=== PATIENT | male | born 1990 | race Caucasian/White ===

== ENCOUNTER 2018-05-11 21:47 | Emergency (ER) | payer OTHER, SELFPAY ==
[2018-05-11] MEDS ORDERED: ONDANSETRON 4 MG/2 ML VIAL ONE (22:18)
[2018-05-11] MEDS ORDERED: MORPHINE 4 MG/ML SYR ONE (22:18)
[2018-05-11 22:23] LABS: Absolute Lymphocytes (CBC) 1.9 K/uL (0.7-4.9); Absolute Monocytes 0.5 K/uL (0.1-1.3); Absolute Neutrophil 4.7 K/uL (1.8-8.0); Basophils % 0.4 % (0-1.3); Eosinophils % 1.6 % (0-4.4); Lymphocytes % 25.8 % (15.3-44.8); MCH 34.9 pg (27.0-35.0); MPV 7.9 fL (7.6-11.3); Monocytes % 6.9 % (3.3-12.3); RBC Red Blood Cell Count 4.37 M/uL (4.33-5.43)
[2018-05-11 22:48] LABS: Albumin 6.1 g/dL (3.4-5.0); Bilirubin Direct 0.1 mg/dL (0-0.2); Bilirubin Total 0.5 mg/dL (0.2-1.0); Magnesium 2.4 mg/dL (1.8-2.4); Potassium 3.4 mmol/L (3.5-5.1); Protein, Total 10.1 g/dL (6.4-8.2)
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
[2018-05-11] MEDS ORDERED: HYDROCODONE/APAP 10/325 TAB ONE (23:47)
--- NOTE | 2018-05-12 06:42 | EKG ---
Test Date: 2018-05-11 Test Time: 21:56:08 Plush Finisher: SUKUMAR MEASUREMENT RESULTS: Intervals: Rate: 98 TX: 104 QRSD: 78 QT: 344 QTc: 439 Vidalia: P: 70 TX: 104 QRS: 74 T: 25 INTERPRETIVE STATEMENTS: Sinus rhythm with sinus arrhythmia with short TX Otherwise normal ECG Compared to ECG 06/03/2016 04:54:27 Short TX interval now present Sinus bradycardia no longer present Electronically Signed On 05-12-18 06:41:43 CDT by William Boone
--- NOTE | 2018-05-12 09:29 | RAD REPORT ---
EXAM DESCRIPTION: RAD - Chest Single View - 05/11/2018 10:35 pm CLINICAL HISTORY: Chest pain, shortness of breath COMPARISON: None. TECHNIQUE: AP portable chest image was obtained . FINDINGS: No focal infiltrate or mass. Heart size and vasculature within normal limits. No acute crystal g parenchymal process or change to the parenchyma since 2016. Small right pleural effusion is present . No left pleural effusions seen. No gross bony abnormality seen. No acute aortic findings suspected. IMPRESSION: Small right pleural effusion. No other acute finding seen.
== END 2018-05-11 23:56 | disposition home or self-care (01) ==
LOC: ER 21:47
DX: R07.9 Chest pain, unspecified (principal); F32.9 Major depressive disorder, single episode, unspecified; F41.9 Anxiety disorder, unspecified; F17.210 Nicotine dependence, cigarettes, uncomplicated
CPT/HCPCS: 36415; 71045; 80048; 80076; 83735; 84484; 85025; 85379; 85610; 85730; 93005; 96374; 96375; 99285; J2405

== ENCOUNTER 2018-10-15 21:44 | Emergency (ER) | payer SELFPAY ==
--- OUTSIDE RECORDS SUMMARY | 2018-10-15 21:47 | XMS REPORT ---
:1990 [facility] [address] [place] [address] Dr. Hackett [address] [place] [id number] Care Team Providers Name Role Phone Unavailable Unavailable Unavailable Problems This patient has no known problems. Allergies, Adverse Reactions, Alerts This patient has no known allergies or adverse reactions. Medications This patient has no known medications.
[2018-10-15 23:59] LABS: Absolute Lymphocytes (CBC) 1.7 K/uL (0.7-4.9); Absolute Monocytes 0.4 K/uL (0.1-1.3); Absolute Neutrophil 4.6 K/uL (1.8-8.0); Basophils % 0.6 % (0-1.3); Eosinophils % 1.9 % (0-4.4); Hematocrit 40.5 % (39.6-49.0); Lymphocytes % 24.9 % (15.3-44.8); MPV 8.9 fL (7.6-11.3); Monocytes % 6.2 % (3.3-12.3); RBC Red Blood Cell Count 4.09 M/uL (4.33-5.43)
[2018-10-16 00:10] LABS: ALT/SGPT 39 U/L (12-78); AST/SGOT 14 U/L (15-37); Albumin 4.1 g/dL (3.4-5.0); Alkaline Phosphatase 74 U/L (45-117); BUN Blood Urea Nitrogen 10 mg/dL (7-18); Bicarbonate 26 mmol/L (21-32); Bilirubin Direct < 0.1 mg/dL (0-0.2); Bilirubin Total 0.3 mg/dL (0.2-1.0); Glucose Level 101 mg/dL (74-106); Lipase 75 U/L (73-393); Potassium 3.5 mmol/L (3.5-5.1); Protein, Total 7.4 g/dL (6.4-8.2); Sodium Level 141 mmol/L (136-145)
[2018-10-16] MEDS ORDERED: MORPHINE 4 MG/ML SYR ONE (00:11)
[2018-10-16] MEDS ORDERED: ONDANSETRON 4 MG/2 ML VIAL ONE (00:11)
[2018-10-16] MEDS ORDERED: KETOROLAC 30 MG/ML INJ ONE (03:32)
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
--- NOTE | 2018-10-16 09:19 | RAD REPORT ---
EXAM DESCRIPTION: CT - Abdomen Pelvis W Contrast - 10/16/2018 6:03 am CLINICAL HISTORY: Abdominal pain, palpable mass near a surgical site A preliminary report was provided at the time of the study and reviewed prior to final report. COMPARISON: CT study January 2014, CT imaging June 2016 TECHNIQUE: Biphasic, helical CT imaging of the abdomen and pelvis was performed following 100 ml non -ionic IV contrast. Oral contrast was given. All CT scans are performed using dose optimization technique as appropriate and may include automated exposure control or mA/KV adjustment according to patient size. FINDINGS: No suspicious findings in the lung bases. No pericardial thickening or effusion. Posterior aspect of the right liver lobe has been resected matching prior imaging. Numerous surgical clips are present in this region. Adjacent parenchyma is heterogeneous but stable. Right kidney has b een resected. No suspicious mass or abnormal fluid collection near the resection site. Spleen and escalante creas show no suspicious findings. Gallbladder is absent. Mild dilatation of the biliary tree is not outside of normal range. Normal function from the left kidney. No pyelonephritis or acute parenchymal process. No bladder abno rmalities. No adrenal abnormalities. No dilated bowel loops or bowel wall thickening. No free air, free fluid or inflammatory stranding. No hernia, mass or bulky lymphadenopathy. No abdominal wall defect or suspicious finding in the subc utaneous fatty tissues. There are numerous areas of scarring along the anterior abdominal wall from m ultiple prior surgeries. No suspicious bony findings. IMPRESSION: Contrast enhanced CT abdomen and pelvis showing no acute finding. No abdominal wall defect or significant finding in the subcutaneous tissues. Exam is not substantiall y different from 2016.
== END 2018-10-16 04:13 | disposition home or self-care (01) ==
LOC: ER 21:44
DX: K43.9 Ventral hernia without obstruction or gangrene (principal); F41.9 Anxiety disorder, unspecified; F32.9 Major depressive disorder, single episode, unspecified; F17.210 Nicotine dependence, cigarettes, uncomplicated
CPT/HCPCS: 36415; 74177; 80048; 80076; 83690; 85025; 96374; 96375; 99284; J2405; Q9967

== ENCOUNTER 2019-03-21 01:30 | Emergency (ER) | payer SELFPAY ==
--- OUTSIDE RECORDS SUMMARY | 2019-03-21 01:33 | XMS REPORT ---
:1990 [facility] [address] [place] [address] Dr. Hackett [address] [place] [id number] Care Team Providers Name Role Phone Unavailable Unavailable Unavailable Problems This patient has no known problems. Allergies, Adverse Reactions, Alerts This patient has no known allergies or adverse reactions. Medications This patient has no known medications.
[2019-03-21] MEDS ORDERED: NA CHLORIDE 0.9% 1,000 ML ONE (02:29)
[2019-03-21] MEDS ORDERED: ONDANSETRON 4 MG/2 ML VIAL ONE (02:29)
[2019-03-21] MEDS ORDERED: ACETAMINOPHEN 325 MG TABLET ONE (03:05)
[2019-03-21] MEDS ORDERED: KETOROLAC 30 MG/ML INJ ONE (03:10)
[2019-03-21 03:38] LABS: Absolute Lymphocytes (CBC) 1.9 K/uL (0.7-4.9); Absolute Neutrophil 7.4 K/uL (1.8-8.0); Basophils % 0.4 % (0-1.3); Eosinophils % 0.3 % (0-4.4); Hematocrit 43.6 % (39.6-49.0); MPV 8.6 fL (7.6-11.3); Monocytes % 9.9 % (3.3-12.3); RBC Red Blood Cell Count 4.56 M/uL (4.33-5.43)
[2019-03-21 04:11] LABS: Albumin 4.5 g/dL (3.4-5.0); Bilirubin Total 0.3 mg/dL (0.2-1.0); Potassium 3.4 mmol/L (3.5-5.1); Protein, Total 8.8 g/dL (6.4-8.2)
[2019-03-21 04:16] LABS: Blood Morphology Comment NOT SEEN (NOT SEEN); Platelet Estimate ADEQ; Urine White Blood Cell Casts OK
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
[2019-03-21] MEDS ORDERED: ACETAMIN/CAFFEINE/BUTALB TAB PO ONE (04:49)
[2019-03-21] MEDS ORDERED: MORPHINE 4 MG/ML SYR ONE (14:03)
--- NOTE | 2019-03-23 12:08 | RAD REPORT ---
EXAM DESCRIPTION: CT - Head Brain Wo Cont - 03/21/2019 4:30 am CLINICAL HISTORY: The patient is 28 years old and is Male; headache, fever TECHNIQUE: Axial computed tomography images of the head/brain without intravenous contrast. Sagitt al and coronal reformatted images were created and reviewed. This CT exam was performed using one o r more of the following dose reduction techniques: automated exposure control, adjustment of the mA and/or kV according to patient size, and/or use of iterative reconstruction technique. COMPARISON: CT of the head October 30, 2017. FINDINGS: BRAIN: Unremarkable. The mcallister-white matter differentiation is preserved . No hemorrhag e. No significant white matter disease. No edema. No extra-axial fluid collections. VENTRICLES: Unremarkable. No ventriculomegaly. BONES/JOINTS: No acute fracture. SOFT TISSUES: Unremarkable. SINUSES: Unremarkable as visualized. No acute sinusitis. MASTOID AIR CELLS: Unremarkable as visualized. No mastoid effusion. IMPRESSION: No acute intracranial findings. Electronically signed by: Angella Garza MD 03/21/2019 2:54 AM CDT Due to temporary technical issues with the PACS/Fluency reporting system, reports are being signed by the in house radiologist as a courtesy to ensure prompt reporting. The interpreting radiologist is f ully responsible for the content of the report.
== END 2019-03-21 04:45 | disposition home or self-care (01) ==
LOC: ER 01:30
DX: R51 Headache (principal); F41.8 Other specified anxiety disorders
CPT/HCPCS: 36415; 70450; 80053; 84145; 85025; 86308; 87040; 87804; 96361; 96374; 96375; 99284; J2405; J7030

== ENCOUNTER 2019-03-21 09:28 | Emergency (ER) | payer SELFPAY ==
--- OUTSIDE RECORDS SUMMARY | 2019-03-21 09:31 | XMS REPORT ---
:1990 [facility] [address] [place] [address] Dr. Hackett [address] [place] [id number] Care Team Providers Name Role Phone Unavailable Unavailable Unavailable Problems This patient has no known problems. Allergies, Adverse Reactions, Alerts This patient has no known allergies or adverse reactions. Medications This patient has no known medications.
[2019-03-21] MEDS ORDERED: MEPERIDINE HCL 50 MG/ML AMP ONE (10:11)
[2019-03-21] MEDS ORDERED: NA CHLORIDE 0.9% 1,000 ML ONE (10:12)
[2019-03-21] MEDS ORDERED: METOCLOPRAMIDE 10 MG/2mL INJ ONE (11:16)
[2019-03-21] MEDS ORDERED: DEXAMETHASONE 10 MG/ML VIAL ONE (11:16)
[2019-03-21] MEDS ORDERED: MORPHINE 4 MG/ML SYR ONE (11:16)
[2019-03-21 11:28] LABS: CSF Glucose 54 mg/dL (40-70)
[2019-03-21 11:54] LABS: Body Fluid Source CSF
[2019-03-21 11:55] LABS: Appearance CLEAR (CLEAR); Color of fluid Colorless (COLORLESS)
[2019-03-21 11:56] LABS: Body Fluid WBC 28 /mm^3
[2019-03-21 11:57] LABS: Appearance CLEAR (CLEAR); Body Fluid Source CSF; Color of fluid Colorless (COLORLESS); Fluid Total Volume 6.5 ml
[2019-03-21 11:58] LABS: Body Fluid WBC 41 /mm^3
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
[2019-03-21] MEDS ORDERED: ACYCLOVIR INJ 800 MG in NA CHLORIDE 0.9% 100 ML IVPB SCH (13:00)
[2019-03-21] MEDS ORDERED: VANCOMYCIN 2 GM in NA CHLORIDE 0.9% 500 ML IVPB SCH (13:00)
[2019-03-21] MEDS ORDERED: CEFTRIAXONE/SWI 2gm 2 GM/20 ML SYR IV SCH (13:00)
== END 2019-03-21 14:27 | disposition short-term general hospital (02) ==
LOC: ER 09:28
PROC: 009U3ZX Drainage of Spinal Canal, Percutaneous Approach, Diagnostic (ICD-10-PCS; principal; 2019-03-21)
DX: G03.9 Meningitis, unspecified (principal); F41.8 Other specified anxiety disorders; G43.909 Migraine, unspecified, not intractable, without status migrainosus
CPT/HCPCS: 36415; 62270; 82945; 84157; 86403; 87070; 89050; 96361; 96365; 96367; 96375; 99285; J0133; J0696; J1100; J2175; J2765; J7030

== ENCOUNTER 2019-07-12 23:43 | Emergency (ER) | payer SELFPAY ==
[2019-07-13] MEDS ORDERED: MORPHINE 4 MG/ML SYR ONE (00:36)
[2019-07-13 00:46] LABS: Absolute Lymphocytes (CBC) 2.6 K/uL (0.7-4.9); Hematocrit 37.1 % (39.6-49.0); Lymphocytes % 40.2 % (15.3-44.8); MPV 8.1 fL (7.6-11.3); RBC Red Blood Cell Count 3.88 M/uL (4.33-5.43)
[2019-07-13 00:59] LABS: ALT/SGPT 85 U/L (12-78); AST/SGOT 44 U/L (15-37); Albumin 4.1 g/dL (3.4-5.0); Alkaline Phosphatase 112 U/L (45-117); BUN Blood Urea Nitrogen 28 mg/dL (7-18); Bicarbonate 24 mmol/L (21-32); Bilirubin Direct < 0.1 mg/dL (0-0.2); Bilirubin Total 0.2 mg/dL (0.2-1.0); Glucose Level 99 mg/dL (74-106); Lipase 97 U/L (73-393); Potassium 4.1 mmol/L (3.5-5.1); Protein, Total 7.4 g/dL (6.4-8.2); Sodium Level 138 mmol/L (136-145)
[2019-07-13] MEDS ORDERED: FENTANYL CITR 100 MCG/2 ML ONE (02:37)
[2019-07-13 02:39] LABS: Urine Blood NEGATIVE (NEG); Urine Glucose NEGATIVE (NEG); Urine Protein NEGATIVE (NEG); Urine Specific Gravity >1.030 (1.005-1.030)
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
[2019-07-13 05:18] VITALS: TEMP 98.1
[2019-07-13 05:19] VITALS: BP 113/71; O2SAT 97
--- NOTE | 2019-07-14 17:24 | RAD REPORT ---
EXAM DESCRIPTION: Abdomen Pelvis W Contrast CLINICAL HISTORY: Abdominal pain COMPARISON: None. TECHNIQUE: CT ABDOMEN PELVIS WITH IV CONTRAST on 07/13/2019 12:29 AM CDT This exam was performed according to our departmental dose-optimization program, which includes autom ated exposure control, adjustment of the mA and/or kV according to patient size and/or use of iterati ve reconstruction technique. FINDINGS: Lower lungs are clear. Abdomen: Liver is mildly enlarged. There are postoperative changes of the right lobe of the liver. Th ere is no biliary dilatation. Gallbladder is absent. The pancreas and spleen are normal in appearance . Adrenal glands and left kidney are normal. Right kidney is absent. Abdominal aorta is normal in course and caliber without aneurysm. There is no free air. There is no r etroperitoneal adenopathy. Pelvis: There is no bowel obstruction. Urinary bladder is unremarkable. There is no free fluid. Appen lopez is normal. Skeleton: There are no acute osseous findings. No suspicious bony lesions. IMPRESSION: Postoperative changes of the right hepatic lobe and right kidney. No definite acute proc ess. Electronically signed by: Nikita Michel MD 07/13/2019 2:04 AM CDT Due to temporary technical issues with the PACS/Fluency reporting system, reports are being signed by the in house radiologist as a courtesy to ensure prompt reporting. The interpreting radiologist is f beckyly responsible for the content of the report.
== END 2019-07-13 04:58 | disposition home or self-care (01) ==
LOC: ER 23:43
DX: R10.2 Pelvic and perineal pain (principal); F41.9 Anxiety disorder, unspecified; F32.9 Major depressive disorder, single episode, unspecified; Z72.0 Tobacco use
CPT/HCPCS: 36415; 74177; 80048; 80076; 81003; 83690; 85025; 96374; 96375; 99284; J3010; Q9967

== ENCOUNTER 2019-08-02 06:10 | Emergency (ER) | payer SELFPAY ==
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
--- NOTE | 2019-08-02 07:23 | RAD REPORT ---
EXAM DESCRIPTION: RAD - Forearm Right - 08/02/2019 7:09 am CLINICAL HISTORY: Right arm pain FINDINGS: No fracture is seen.
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
--- NOTE | 2019-08-02 07:26 | RAD REPORT ---
EXAM DESCRIPTION: Pardeep Single View08/02/2019 7:09 am CLINICAL HISTORY: Chest pain COMPARISON: 2018 FINDINGS: The lungs appear clear of acute infiltrate. The heart is normal size IMPRESSION: No acute abnormalities displayed
[2019-08-02] MEDS ORDERED: LIDOCAINE 1% W/EPI 1:100,000 MDV 20 ML VIAL ONE (07:31)
[2019-08-02] MEDS ORDERED: HYDROCODONE/APAP 5/325 MG TAB ONE (07:32)
[2019-08-02] MEDS ORDERED: IBUPROFEN 400 MG TAB ONE (07:33)
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
[2019-08-02 08:40] VITALS: TEMP 97.9
[2019-08-02 08:42] VITALS: BP 122/75; O2SAT 96
== END 2019-08-02 08:28 | disposition home or self-care (01) ==
LOC: ER 06:10
PROC: 0JQ00ZZ Repair Scalp Subcutaneous Tissue and Fascia, Open Approach (ICD-10-PCS; principal; 2019-08-02)
DX: S01.01XA Laceration without foreign body of scalp, initial encounter (principal); Y04.2XXA Assault by strike against or bumped into by another person, initial encounter; Y93.9 Activity, unspecified; Y92.89 Other specified places as the place of occurrence of the external cause; F17.210 Nicotine dependence, cigarettes, uncomplicated; F41.9 Anxiety disorder, unspecified; F32.9 Major depressive disorder, single episode, unspecified
CPT/HCPCS: 70450; 70486; 71045; 72125; 76377; 99284

== ENCOUNTER 2019-08-09 07:39 | Emergency (ER) | payer SELFPAY ==
[2019-08-09] MEDS ORDERED: NA CHLORIDE 0.9% 1,000 ML ONE (07:56)
[2019-08-09 08:12] LABS: Absolute Lymphocytes (CBC) 2.4 K/uL (0.7-4.9); Lymphocytes % 25.7 % (15.3-44.8); MPV 8.1 fL (7.6-11.3); RBC Red Blood Cell Count 4.01 M/uL (4.33-5.43)
[2019-08-09 08:15] LABS: Protime INR 1.03
[2019-08-09 08:22] LABS: Potassium 3.7 mmol/L (3.5-5.1)
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
[2019-08-09] MEDS ORDERED: HYDROCODONE/APAP 10/325 TAB ONE (08:43)
[2019-08-09] MEDS ORDERED: MORPHINE 2 MG/ML SYR ONE (09:12)
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
[2019-08-09 09:41] VITALS: TEMP 98.8
[2019-08-09 09:43] VITALS: BP 123/80; O2SAT 96
--- NOTE | 2019-08-10 07:53 | EKG ---
Test Date: 2019-08-09 Test Time: 07:52:19 Magnetic Observer: TANA MEASUREMENT RESULTS: Intervals: Rate: 81 NE: 110 QRSD: 86 QT: 364 QTc: 422 [place]: P: 10 NE: 110 QRS: 19 T: 15 INTERPRETIVE STATEMENTS: Sinus rhythm with short NE Otherwise normal ECG Compared to ECG 05/11/2018 21:56:08 Sinus arrhythmia no longer present Electronically Signed On 08-10-19 07:51:56 CDT by William Boone
== END 2019-08-09 09:28 | disposition home or self-care (01) ==
LOC: ER 07:39
DX: S00.03XA Contusion of scalp, initial encounter (principal); W22.8XXA Striking against or struck by other objects, initial encounter; Y93.89 Activity, other specified; Y92.89 Other specified places as the place of occurrence of the external cause
CPT/HCPCS: 36415; 70450; 72125; 80048; 80320; 85025; 85610; 85730; 93005; 96360; 99285; J2270; J7030

== ENCOUNTER 2019-10-24 11:26 | Emergency (ER) | payer SELFPAY ==
--- OUTSIDE RECORDS SUMMARY | 2019-10-24 11:29 | XMS REPORT ---
:1990 [facility] [address] [place] [address] Care Team Providers Name Role Phone NAHOMY CAMP Unavailable Unavailable Problems This patient has no known problems. Allergies, Adverse Reactions, Alerts This patient has no known allergies or adverse reactions. Medications This patient has no known medications. Encounters Start End Encounter Admission Attending Care Care Encounter Date/Time Date/Time Type Type Clinicians Facility Department ID 2019-08-04 2019-08-04 Emergency E [facility] [id number] 18:18:00 18:18:00 2019-03-16 2019-03-16 Emergency E [facility] [id number] 20:20:00 20:20:00 Results Test Description Test Time Test Comments Text Results Atomic Results Result Comments BASIC METABOLIC PANEL 2019-03-26 07:05:00 Test Item Value Reference Range Comments SODIUM (BEAKER) (test 138 meq/L 136-145 quwh=312) POTASSIUM (BEAKER) (test 3.7 meq/L 3.5-5.1 aooc=546) CHLORIDE (BEAKER) (test 106 meq/L 98-107 fljb=431) CO2 (BEAKER) (test 25 meq/L 22-29 odvn=102) BLOOD UREA NITROGEN 10 mg/dL 7-21 (BEAKER) (test awya=347) CREATININE (BEAKER) (test 0.83 mg/dL 0.57-1.25 suhw=103) GLUCOSE RANDOM (BEAKER) 88 mg/dL 70-105 (test aarz=058) CALCIUM (BEAKER) (test 9.1 mg/dL 8.4-10.2 blcs=417) EGFR (BEAKER) (test 112 mL/min/1.73 sq m ESTIMATED GFR IS NOT ancd=1071) ACCURATE CREATININE CLEARANCE IN PREDICTING GLOMERULAR FILTRATION RATE. ESTIMATED GFR IS NOT APPLICABLE FOR DIALYSIS PATIENTS. BASIC METABOLIC [id number] 06:45:00 Test Item Value Reference Range Comments SODIUM (BEAKER) (test 139 meq/L 136-145 psub=313) POTASSIUM (BEAKER) (test 3.7 meq/L 3.5-5.1 estg=911) CHLORIDE (BEAKER) (test 108 meq/L 98-107 hdlp=792) CO2 (BEAKER) (test 23 meq/L 22-29 cvoa=838) BLOOD UREA NITROGEN 10 mg/dL 7-21 (BEAKER) (test fuzl=337) CREATININE (BEAKER) (test 0.78 mg/dL 0.57-1.25 leiw=993) GLUCOSE RANDOM (BEAKER) 81 mg/dL 70-105 (test lptc=973) CALCIUM (BEAKER) (test 9.1 mg/dL 8.4-10.2 styq=541) EGFR (BEAKER) (test 120 mL/min/1.73 sq m ESTIMATED GFR IS NOT ctwg=8978) ACCURATE CREATININE CLEARANCE IN PREDICTING GLOMERULAR FILTRATION RATE. ESTIMATED GFR IS NOT APPLICABLE FOR DIALYSIS PATIENTS. VANCOMYCIN LEVEL, [id number] 21:11:00 Test Item Value Reference Range Comments VANCOMYCIN TROUGH (BEAKER) (test obpr=370) 8.3 ug/mL 10.0-20.0 CBC W/PLT COUNT & AUTO [id number] 08:25:00 Test Item Value Reference Range Comments WHITE BLOOD CELL COUNT (BEAKER) (test prxw=730) 7.5 K/ L 3.5-10.5 RED BLOOD CELL COUNT (BEAKER) (test wcxh=965) 3.86 M/ L 4.63-6.08 HEMOGLOBIN (BEAKER) (test yayv=053) 12.4 GM/DL 13.7-17.5 HEMATOCRIT (BEAKER) (test fduw=923) 36.2 % 40.1-51.0 MEAN CORPUSCULAR VOLUME (BEAKER) (test brbq=452) 93.8 fL 79.0-92.2 MEAN CORPUSCULAR HEMOGLOBIN (BEAKER) (test 32.1 pg 25.7-32.2 exrp=205) MEAN CORPUSCULAR HEMOGLOBIN CONC (BEAKER) (test 34.3 GM/DL 32.3-36.5 soof=365) RED CELL DISTRIBUTION WIDTH (BEAKER) (test 11.5 % 11.6-14.4 unll=069) PLATELET COUNT (BEAKER) (test wurb=527) 299 K/CU MM 150-450 MEAN PLATELET VOLUME (BEAKER) (test whjy=949) 9.5 fL 9.4-12.4 NUCLEATED RED BLOOD CELLS (BEAKER) (test 0 /100 WBC 0-0 znxz=852) (CELLAVISION MANUAL DIFF)2019-03-24 08:25:00 Test Item Value Reference Range Comments NEUTROPHILS - REL (CELLAVISION)(BEAKER) (test 61 % oblb=9639) LYMPHOCYTES - REL (CELLAVISION)(BEAKER) (test 30 % zozu=8360) MONOCYTES - REL (CELLAVISION)(BEAKER) (test 5 % irdx=3367) EOSINOPHILS - REL (CELLAVISION)(BEAKER) (test 1 % xybn=2971) BASOPHILS - REL (CELLAVISION)(BEAKER) (test 1 % hfsr=9400) ATYPICAL LYMPHOCYTES - REL (CELLAVISION)(BEAKER) 2 % 0-0 (test sqbe=0340) NEUTROPHILS - ABS (CELLAVISION)(BEAKER) (test 4.58 K/ul 1.78-5.38 lcwy=5399) LYMPHOCYTES - ABS (CELLAVISION)(BEAKER) (test 2.25 K/ul 1.32-3.57 xqww=9838) MONOCYTES - ABS (CELLAVISION)(BEAKER) (test 0.38 K/uL 0.30-0.82 ybva=5754) EOSINOPHILS - ABS (CELLAVISION)(BEAKER) (test 0.08 K/uL 0.04-0.54 ujzm=0971) BASOPHILS - ABS (CELLAVISION)(BEAKER) (test 0.08 K/uL 0.01-0.08 ktcq=3695) ATYPICAL LYMPHOCYTES - ABS (CELLAVISION)(BEAKER) 0.15 K/uL 0.00-0.00 (test juhc=8996) TOTAL COUNTED (BEAKER) (test evop=6122) 100 WBC MORPHOLOGY (BEAKER) (test fggh=654) Normal PLT MORPHOLOGY (BEAKER) (test gjkk=345) Normal ANISOCYTOSIS (BEAKER) (test ltfd=438) 1+ few MICROCYTES (BEAKER) (test esya=193) 1+ few ARTIFACT (CELLAVISION)(BEAKER) (test qtak=8511) Present PLATELET CONCENTRATION (CELLAVISION)(BEAKER) (test Adequate uqjx=1458) Received comment: User comments: Slide comments:BASIC METABOLIC [id number] 06:26:00 Test Item Value Reference Range Comments SODIUM (BEAKER) (test 137 meq/L 136-145 uvnk=588) POTASSIUM (BEAKER) (test 3.3 meq/L 3.5-5.1 ijdc=721) CHLORIDE (BEAKER) (test 104 meq/L 98-107 fnie=032) CO2 (BEAKER) (test 25 meq/L 22-29 vvbr=868) BLOOD UREA NITROGEN 11 mg/dL 7-21 (BEAKER) (test ozog=911) CREATININE (BEAKER) (test 0.85 mg/dL 0.57-1.25 lwmf=164) GLUCOSE RANDOM (BEAKER) 92 mg/dL 70-105 (test styw=632) CALCIUM (BEAKER) (test 8.9 mg/dL 8.4-10.2 baye=266) EGFR (BEAKER) (test 109 mL/min/1.73 sq m ESTIMATED GFR IS NOT jdwu=8977) ACCURATE CREATININE CLEARANCE IN PREDICTING GLOMERULAR FILTRATION RATE. ESTIMATED GFR IS NOT APPLICABLE FOR DIALYSIS PATIENTS. CBC W/PLT COUNT & AUTO [id number] 14:49:00 Test Item Value Reference Range Comments WHITE BLOOD CELL COUNT (BEAKER) (test fqnm=575) 6.8 K/ L 3.5-10.5 RED BLOOD CELL COUNT (BEAKER) (test kdvq=533) 4.06 M/ L 4.63-6.08 HEMOGLOBIN (BEAKER) (test qxwo=833) 13.1 GM/DL 13.7-17.5 HEMATOCRIT (BEAKER) (test tgbw=037) 37.7 % 40.1-51.0 MEAN CORPUSCULAR VOLUME (BEAKER) (test cobg=622) 92.9 fL 79.0-92.2 MEAN CORPUSCULAR HEMOGLOBIN (BEAKER) (test 32.3 pg 25.7-32.2 iori=435) MEAN CORPUSCULAR HEMOGLOBIN CONC (BEAKER) (test 34.7 GM/DL 32.3-36.5 kbqr=602) RED CELL DISTRIBUTION WIDTH (BEAKER) (test 11.8 % 11.6-14.4 thwi=283) PLATELET COUNT (BEAKER) (test bqam=972) 301 K/CU MM 150-450 MEAN PLATELET VOLUME (BEAKER) (test tbyb=833) 9.8 fL 9.4-12.4 NUCLEATED RED BLOOD CELLS (BEAKER) (test 0 /100 WBC 0-0 mezb=287) (CELLAVISION MANUAL DIFF)2019-03-23 14:49:00 Test Item Value Reference Range Comments NEUTROPHILS - REL (CELLAVISION)(BEAKER) (test 55 % ajoi=8445) LYMPHOCYTES - REL (CELLAVISION)(BEAKER) (test 32 % xccb=5443) MONOCYTES - REL (CELLAVISION)(BEAKER) (test 7 % rkra=3506) EOSINOPHILS - REL (CELLAVISION)(BEAKER) (test 3 % biqt=4727) BASOPHILS - REL (CELLAVISION)(BEAKER) (test 3 % adqy=5816) NEUTROPHILS - ABS (CELLAVISION)(BEAKER) (test 3.74 K/ul 1.78-5.38 phkx=2997) LYMPHOCYTES - ABS (CELLAVISION)(BEAKER) (test 2.18 K/ul 1.32-3.57 dhle=0344) MONOCYTES - ABS (CELLAVISION)(BEAKER) (test 0.48 K/uL 0.30-0.82 hakw=1763) EOSINOPHILS - ABS (CELLAVISION)(BEAKER) (test 0.20 K/uL 0.04-0.54 hege=1174) BASOPHILS - ABS (CELLAVISION)(BEAKER) (test 0.20 K/uL 0.01-0.08 nenp=4162) TOTAL COUNTED (BEAKER) (test swuq=2033) 100 RBC MORPHOLOGY (BEAKER) (test dvqw=963) Normal PLT MORPHOLOGY (BEAKER) (test acye=072) Normal SMUDGE CELLS (BEAKER) (test zphk=3082) Present ARTIFACT (CELLAVISION)(BEAKER) (test jpun=5571) Present PLATELET CONCENTRATION (CELLAVISION)(BEAKER) (test Adequate esct=6215) Received comment: User comments: Slide comments:BASIC METABOLIC [id number] 12:30:00 Test Item Value Reference Range Comments SODIUM (BEAKER) (test 138 meq/L 136-145 xtxk=338) POTASSIUM (BEAKER) (test 4.0 meq/L 3.5-5.1 pcxv=784) CHLORIDE (BEAKER) (test 106 meq/L 98-107 cfvh=135) CO2 (BEAKER) (test 22 meq/L 22-29 dmdm=567) BLOOD UREA NITROGEN 12 mg/dL 7-21 (BEAKER) (test knpp=195) CREATININE (BEAKER) (test 0.88 mg/dL 0.57-1.25 kkep=184) GLUCOSE RANDOM (BEAKER) 94 mg/dL 70-105 (test nqqf=492) CALCIUM (BEAKER) (test 9.4 mg/dL 8.4-10.2 dvqn=188) EGFR (BEAKER) (test 105 mL/min/1.73 sq m ESTIMATED GFR IS NOT itwq=9896) ACCURATE CREATININE CLEARANCE IN PREDICTING GLOMERULAR FILTRATION RATE. ESTIMATED GFR IS NOT APPLICABLE FOR DIALYSIS PATIENTS. RAPID DRUG SCREEN, [id number] 21:01:00 Test Item Value Reference Range Comments BARBITURATE URINE (BEAKER) (test mzve=330) Positive Negative BENZODIAZEPINE SCREEN URINE (BEAKER) (test Negative Negative jabh=432) COCAINE (METAB.) SCREEN (BEAKER) (test vwyc=5035) Negative Negative METHADONE SCREEN (BEAKER) (test jwhl=0501) Negative Negative OPIATE SCREEN URINE (BEAKER) (test nokf=776) Positive Negative CANNABINOID SCREEN URINE (BEAKER) (test qzsf=754) Negative Negative AMPH/METHAMPH SCREEN (BEAKER) (test dmuv=1152) Negative Negative PHENCYCLIDINE SCREEN URINE (BEAKER) (test enoy=579) Negative Negative DRUG CUTOFF CONC.Cocaine 300 ng/mL Cannabinoid 50 ng/mLBenzodiazepine 200 ng/mLBarbiturate 200 ng/ mLPhencyclidine 25 ng/mLOpiate 300 ng/mLMethadone 300 ng/mLAmphetamine/ 1000 ng/mL MethamphetamineThis assay provides an unconfirmed qualitative test result for the clinical management of patients in emergency situations. Chain of custody not maintained. Some gkwx-tgl-iqditfb medications, as well as adulterants, may cause inaccurate results. Clinical correlation should be applied. A more comprehensivedrug screen or confirmation of a detected drug may be performed upon request.URINALYSIS W/ REFLEX URINE [id number] 20:48:00 Test Item Value Reference Range Comments COLOR (BEAKER) (test ysqk=488) Yellow CLARITY (BEAKER) (test jndy=502) Hazy SPECIFIC GRAVITY UA (BEAKER) (test tmes=921) 1.034 1.001-1.035 PH UA (BEAKER) (test iqwn=820) 6.0 5.0-8.0 PROTEIN UA (BEAKER) (test nwxc=780) 20 mg/dL Negative GLUCOSE UA (BEAKER) (test vkzq=186) Negative Negative KETONES UA (BEAKER) (test bshg=684) Negative Negative BILIRUBIN UA (BEAKER) (test hejy=942) Negative Negative BLOOD UA (BEAKER) (test kazt=763) Negative Negative NITRITE UA (BEAKER) (test emyr=001) Negative Negative LEUKOCYTE ESTERASE UA (BEAKER) (test cvty=427) Negative Negative UROBILINOGEN UA (BEAKER) (test uzus=465) 0.2 mg/dL 0.2-1.0 RBC UA (BEAKER) (test sqbu=129) 0 /HPF WBC UA (BEAKER) (test mldx=856) 1 /HPF BACTERIA (BEAKER) (test jlrr=212) Occasional MUCUS (BEAKER) (test shng=2619) Occasional SQUAMOUS EPITHELIAL (BEAKER) (test tzta=311) < /HPF GRANULAR CASTS (BEAKER) (test ayit=556) 2 /LPF YEAST (BEAKER) (test vhhx=9685) Occasional SOURCE(BEAKER) (test knus=7712) MR, BRAIN, [id number] 15:37:00FINAL REPORT MRI Brain with and without contrast Clinical History: headache, CSF pleocytosis Technique : MRI of the brain utilizing axial T1, T2, FLAIR, GRE, DWI, sagittal T1; andpostgadolinium axial, sagittal, and coronal T1-weighted images. Comparisons: None Findings: There isno abnormal intracranial enhancement or mass. There is no evidence of acute or chronic infarct or hemorrhage. There is no significant appearing white matter disease. The cerebellar tonsils are borderline low lying in the foramen magnum, but maintain a rounded configuration. The ventricles and sulci are otherwise appropriate for the patient's age without hydrocephalus, midline shift, or apparent mass effect. There are no extra-axial fluid collections. The major intracranial flow-voids appear patent. IMPRESSION: No evidence for infarct, hemorrhage, hydrocephalus, or mass. 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 Signed: Kenny Antonio MDReport Verified Date/Time: 03/22/2019 15:37:41 Reading Location: [facility] C013 Neuro Reading Room Electronicallysigned by: KENNY ANTONIO M.D. on 03/22/2019 03:37 PMHIV-1 ANTIGEN WITH HIV-1/2 [id number] 14:15: 00 Test Item Value Reference Range Comments HIV-1 ANTIGEN WITH HIV 1\T\2 ANTIBODY (2) Nonreactive Nonreactive (BEAKER) (test qezs=3586) BASIC METABOLIC [id number] 13:55:00 Test Item Value Reference Range Comments SODIUM (BEAKER) (test 140 meq/L 136-145 mmkt=278) POTASSIUM (BEAKER) (test 3.5 meq/L 3.5-5.1 yynr=642) CHLORIDE (BEAKER) (test 105 meq/L 98-107 lzpm=102) CO2 (BEAKER) (test 23 meq/L 22-29 gmaq=278) BLOOD UREA NITROGEN 12 mg/dL 7-21 (BEAKER) (test alog=069) CREATININE (BEAKER) (test 1.04 mg/dL 0.57-1.25 jyaq=116) GLUCOSE RANDOM (BEAKER) 109 mg/dL 70-105 (test atyz=605) CALCIUM (BEAKER) (test 9.9 mg/dL 8.4-10.2 lycv=256) EGFR (BEAKER) (test 86 mL/min/1.73 sq m ESTIMATED GFR IS NOT gfjc=1850) ACCURATE CREATININE CLEARANCE IN PREDICTING GLOMERULAR FILTRATION RATE. ESTIMATED GFR IS NOT APPLICABLE FOR DIALYSIS PATIENTS. CBC W/PLT COUNT & AUTO [id number] 13:35:00 Test Item Value Reference Range Comments WHITE BLOOD CELL COUNT (BEAKER) (test bmff=639) 9.8 K/ L 3.5-10.5 RED BLOOD CELL COUNT (BEAKER) (test ckzp=367) 4.27 M/ L 4.63-6.08 HEMOGLOBIN (BEAKER) (test tbch=276) 13.8 GM/DL 13.7-17.5 HEMATOCRIT (BEAKER) (test eewo=092) 39.8 % 40.1-51.0 MEAN CORPUSCULAR VOLUME (BEAKER) (test muza=021) 93.2 fL 79.0-92.2 MEAN CORPUSCULAR HEMOGLOBIN (BEAKER) (test 32.3 pg 25.7-32.2 bkpz=476) MEAN CORPUSCULAR HEMOGLOBIN CONC (BEAKER) (test 34.7 GM/DL 32.3-36.5 dznd=340) RED CELL DISTRIBUTION WIDTH (BEAKER) (test 11.6 % 11.6-14.4 gpvh=586) PLATELET COUNT (BEAKER) (test khfp=114) 300 K/CU MM 150-450 MEAN PLATELET VOLUME (BEAKER) (test fchq=891) 9.7 fL 9.4-12.4 NUCLEATED RED BLOOD CELLS (BEAKER) (test 0 /100 WBC 0-0 epye=580) NEUTROPHILS RELATIVE PERCENT (BEAKER) (test 64 % lkul=029) LYMPHOCYTES RELATIVE PERCENT (BEAKER) (test 30 % ikdz=601) MONOCYTES RELATIVE PERCENT (BEAKER) (test 5 % faii=898) EOSINOPHILS RELATIVE PERCENT (BEAKER) (test 1 % lpvw=036) BASOPHILS RELATIVE PERCENT (BEAKER) (test 0 % exje=304) NEUTROPHILS ABSOLUTE COUNT (BEAKER) (test 6.28 K/ L 1.78-5.38 enig=757) LYMPHOCYTES ABSOLUTE COUNT (BEAKER) (test 2.91 K/ L 1.32-3.57 rpxu=347) MONOCYTES ABSOLUTE COUNT (BEAKER) (test 0.50 K/ L 0.30-0.82 atnb=789) EOSINOPHILS ABSOLUTE COUNT (BEAKER) (test 0.07 K/ L 0.04-0.54 mqfz=573) BASOPHILS ABSOLUTE COUNT (BEAKER) (test 0.04 K/ L 0.01-0.08 iwnz=580) IMMATURE GRANULOCYTES-RELATIVE PERCENT (BEAKER) 0 % 0-1 (test ptzv=2390) HEPATIC FUNCTION [id number] 18:35:00 Test Item Value Reference Range Comments TOTAL PROTEIN (BEAKER) (test rpkp=910) 7.8 gm/dL 6.0-8.3 ALBUMIN (BEAKER) (test nhql=5282) 4.5 g/dL 3.5-5.0 BILIRUBIN TOTAL (BEAKER) (test cadn=096) 0.3 mg/dL 0.2-1.2 BILIRUBIN DIRECT (BEAKER) (test ksaf=224) 0.2 mg/dL 0.1-0.5 ALKALINE PHOSPHATASE (BEAKER) (test zvxu=359) 86 U/L 40-150 AST (SGOT) (BEAKER) (test fijt=384) 20 U/L 5-34 ALT (SGPT) (BEAKER) (test hwbj=622) 34 U/L 6-55 BASIC METABOLIC [id number] 18:34:00 Test Item Value Reference Range Comments SODIUM (BEAKER) (test 136 meq/L 136-145 fpam=249) POTASSIUM (BEAKER) (test 3.8 meq/L 3.5-5.1 egec=511) CHLORIDE (BEAKER) (test 103 meq/L 98-107 rlew=719) CO2 (BEAKER) (test 22 meq/L 22-29 dcew=309) BLOOD UREA NITROGEN 11 mg/dL 7-21 (BEAKER) (test vnwu=600) CREATININE (BEAKER) (test 1.11 mg/dL 0.57-1.25 fnkx=714) GLUCOSE RANDOM (BEAKER) 134 mg/dL 70-105 (test dhtp=861) CALCIUM (BEAKER) (test 9.6 mg/dL 8.4-10.2 htec=539) EGFR (BEAKER) (test 80 mL/min/1.73 sq m ESTIMATED GFR IS NOT gxto=6458) ACCURATE CREATININE CLEARANCE IN PREDICTING GLOMERULAR FILTRATION RATE. ESTIMATED GFR IS NOT APPLICABLE FOR DIALYSIS PATIENTS. CBC W/PLT COUNT & AUTO [id number] 18:28:00 Test Item Value Reference Range Comments WHITE BLOOD CELL COUNT (BEAKER) (test oplw=393) 9.7 K/ L 3.5-10.5 RED BLOOD CELL COUNT (BEAKER) (test magq=773) 3.88 M/ L 4.63-6.08 HEMOGLOBIN (BEAKER) (test jroi=270) 12.6 GM/DL 13.7-17.5 HEMATOCRIT (BEAKER) (test zksr=546) 35.9 % 40.1-51.0 MEAN CORPUSCULAR VOLUME (BEAKER) (test gvil=890) 92.5 fL 79.0-92.2 MEAN CORPUSCULAR HEMOGLOBIN (BEAKER) (test 32.5 pg 25.7-32.2 dcea=746) MEAN CORPUSCULAR HEMOGLOBIN CONC (BEAKER) (test 35.1 GM/DL 32.3-36.5 becq=374) RED CELL DISTRIBUTION WIDTH (BEAKER) (test 11.5 % 11.6-14.4 xgde=969) PLATELET COUNT (BEAKER) (test mxcy=350) 250 K/CU MM 150-450 MEAN PLATELET VOLUME (BEAKER) (test ybmz=591) 9.8 fL 9.4-12.4 NUCLEATED RED BLOOD CELLS (BEAKER) (test 0 /100 WBC 0-0 vvhi=061) NEUTROPHILS RELATIVE PERCENT (BEAKER) (test 90 % vjkc=179) LYMPHOCYTES RELATIVE PERCENT (BEAKER) (test 9 % dlim=628) MONOCYTES RELATIVE PERCENT (BEAKER) (test 1 % ixjj=155) EOSINOPHILS RELATIVE PERCENT (BEAKER) (test 0 % zayl=612) BASOPHILS RELATIVE PERCENT (BEAKER) (test 0 % nqef=815) NEUTROPHILS ABSOLUTE COUNT (BEAKER) (test 8.71 K/ L 1.78-5.38 xcbs=086) LYMPHOCYTES ABSOLUTE COUNT (BEAKER) (test 0.86 K/ L 1.32-3.57 bruq=889) MONOCYTES ABSOLUTE COUNT (BEAKER) (test 0.12 K/ L 0.30-0.82 iglc=778) EOSINOPHILS ABSOLUTE COUNT (BEAKER) (test 0.00 K/ L 0.04-0.54 hmjv=247) BASOPHILS ABSOLUTE COUNT (BEAKER) (test 0.01 K/ L 0.01-0.08 pjyk=916) IMMATURE GRANULOCYTES-RELATIVE PERCENT (BEAKER) 0 % 0-1 (test elye=4029) RAD, CHEST, 1 VIEW, NON [id number] 16:57:00Reason for exam:->r/o pneumoniaShould this be performed at the bedside?->YesFINAL REPORT Portable chest. MEDICAL HISTORY: Rule out pneumonia. COMPARISON STUDY: None available. FINDINGS: The cardiac size is unremarkable. There is blunting of the right causing again with adjacent atelectasis or consolidation. No pneumothorax is seen. The regional skeletonis unremarkable. IMPRESSION: Right costophrenic angle blunting. Signed: Bimal Becerril Verified Date/Time: 03/21/2019 16:57:47 Reading Location: [facility] [id number] Ortho Consult Reading Room
[2019-10-24] MEDS ORDERED: NA CHLORIDE 0.9% 1,000 ML ONE (11:44)
[2019-10-24] MEDS ORDERED: ONDANSETRON 4 MG/2 ML VIAL ONE ×2 (11:44→15:35)
[2019-10-24] MEDS ORDERED: MORPHINE 4 MG/ML SYR ONE (11:45)
[2019-10-24 12:04] LABS: Absolute Lymphocytes (CBC) 2.5 K/uL (0.7-4.9); Basophils % 0.6 % (0-1.3); Hematocrit 42.9 % (39.6-49.0); Lymphocytes % 25.7 % (15.3-44.8); MPV 8.7 fL (7.6-11.3); RBC Red Blood Cell Count 4.59 M/uL (4.33-5.43)
[2019-10-24 12:17] LABS: Potassium 3.6 mmol/L (3.5-5.1)
--- NOTE | 2019-10-24 12:49 | RAD REPORT ---
EXAM DESCRIPTION: US - Scrotum Testicles - 10/24/2019 12:37 pm CLINICAL HISTORY: Right-sided testicular pain COMPARISON: None. FINDINGS: No intratesticular mass. Testicular tissue is homogeneous with normal blood flow on Dopple r evaluation. No epididymis enlargement or hyperemia. Small left hydrocele is present. IMPRESSION: Small left hydrocele. No other significant finding.
[2019-10-24 13:14] LABS: Urine Blood NEGATIVE (NEG); Urine Glucose NEGATIVE (NEG); Urine Protein NEGATIVE (NEG)
--- NOTE | 2019-10-24 13:14 | RAD REPORT ---
EXAM DESCRIPTION: CT - Stone Protocol - 10/24/2019 1:01 pm CLINICAL HISTORY: Abdominal pain, inguinal and scrotal pain COMPARISON: CT imaging June 2019 TECHNIQUE: Axial 5 mm thick images were obtained without oral or IV contrast. The dxsaf-bc-nywv span s the entirety of the system including uppermost abdomen and lung bases. All CT scans are performed using dose optimization technique as appropriate and may include automated exposure control or mA/KV adjustment according to patient size. FINDINGS: No hydronephrosis is present and no obstructing ureteral calculi. No suspicious renal mass es. Isodense masses and pyelonephritis are not excluded on a stone protocol CT scan. No urinary bladd er suspicious finding. No significant adrenal finding. Right kidney is absent. Postsurgical clips are present in the right upper quadrant. Imaged portions of the liver, spleen and pancreas show no suspicious findings on non-contrast imaging . Gallbladder is absent. No biliary tree dilatation. No acute bowel finding seen. Appendix is normal. No inguinal hernia is present. There are no right lower quadrant for inguinal region abnormality seen . No free air, free fluid or inflammatory stranding. No significant bony abnormality. IMPRESSION: Noncontrast CT abdomen and pelvis imaging, as detailed above, shows no acute or suspicio us finding. Isodense masses and pyelonephritis are not excluded on stone protocol technique. No significant changes from prior imaging.
[2019-10-24] MEDS ORDERED: KETOROLAC 30 MG/ML INJ ONE (13:36)
[2019-10-24] MEDS ORDERED: DIPHENHYDRAMINE 50 MG/ML VIAL ONE (13:36)
[2019-10-24] MEDS ORDERED: HYDROMORPHONE HCL 1 MG/ML INJ ONE (13:58)
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
[2019-10-24] MEDS ORDERED: MORPHINE 2 MG/ML SYR ONE (15:35)
[2019-10-24 15:55] VITALS: O2SAT 100
[2019-10-24 15:58] VITALS: BP 129/90; TEMP 98.1
== END 2019-10-24 15:37 | disposition short-term general hospital (02) ==
LOC: ER 11:26
DX: N50.811 Right testicular pain (principal); R22.2 Localized swelling, mass and lump, trunk; R51 Headache; F41.9 Anxiety disorder, unspecified; F32.9 Major depressive disorder, single episode, unspecified
CPT/HCPCS: 36415; 74176; 76377; 76870; 80048; 81003; 85025; 96374; 96375; 99285; J1170; J1200; J2270; J2405; J7030

== ENCOUNTER 2020-01-20 22:55 | Inpatient (IN) | payer SELFPAY ==
--- OUTSIDE RECORDS SUMMARY | 2020-01-20 23:00 | XMS REPORT ---
:1990 Author Organization [facility] t Address [address] [place] [address] Care Team Providers Name Role Phone APOLINAR Unavailable Unavailable ZOË Unavailable Unavailable Problems This patient has no known problems. Allergies, Adverse Reactions, Alerts This patient has no known allergies or adverse reactions. Medications This patient has no known medications. Encounters Start End Encounter Admission Attending Care Care Encounter Date/Time Date/Time Type Type Clinicians Facility Department ID 2019-08-04 2019-08-04 Emergency E [facility] [id number] 18:18:00 18:18:00 2019-03-16 2019-03-16 Emergency E [facility] BL [id number] 20:20:00 20:20:00 Results Test Description Test Time Test Comments Text Results Atomic Results Result Comments BASIC METABOLIC PANEL 2019-10-26 12:17:00 Test Item Value Reference Range Comments SODIUM (BEAKER) (test code = 138 meq/L 135-148 381) POTASSIUM (BEAKER) (test 4.1 meq/L 3.6-5.5 Specime n moderately code = 379) hemolyzed CHLORIDE (BEAKER) (test code 115 meq/L 98-106 = 382) CO2 (BEAKER) (test code = 15 meq/L 20-29 355) BLOOD UREA NITROGEN (BEAKER) 15 mg/dL 10-26 (test code = 354) CREATININE (BEAKER) (test 1.23 mg/dL 0.50-1.20 Specim en moderately code = 358) hemolyzed GLUCOSE RANDOM (BEAKER) 89 mg/dL 70-110 (test code = 652) CALCIUM (BEAKER) (test code 8.4 mg/dL 8.5-10.5 = 697) EGFR (BEAKER) (test code = 71 mL/min/1.73 sq m E STIMATED GFR IS NOT 1092) ACCURATE CREA TININE CLEARANCE IN PRE DICTING GLOMERULAR FILTR ATION RATE. ESTIMATED GFR IS NOT APPLICABLE FOR D IALYSIS PATIENTS. Treater ID - [id number] 07:12:00 Test Item Value Reference Range Comments CULTURE (BEAKER) (test code = <10,000 col/mL skin ever 1095) CBC W/PLT COUNT & AUTO [id number] 06:49:00 Test Item Value Reference Range Comments WHITE BLOOD CELL COUNT (BEAKER) (test code = 6.3 K/ L 3.5 -10.5 775) RED BLOOD CELL COUNT (BEAKER) (test code = 761) 3.95 M/ L 4.63-6.08 HEMOGLOBIN (BEAKER) (test code = 410) 12.7 GM/DL 13.7-17.5 HEMATOCRIT (BEAKER) (test code = 411) 37.4 % 40.1-51.0 MEAN CORPUSCULAR VOLUME (BEAKER) (test code = 94.7 fL 79 .0-92.2 753) MEAN CORPUSCULAR HEMOGLOBIN (BEAKER) (test code 32.2 pg 25.7-32.2 = 751) MEAN CORPUSCULAR HEMOGLOBIN CONC (BEAKER) (test 34.0 GM/DL 32.3-36.5 code = 752) RED CELL DISTRIBUTION WIDTH (BEAKER) (test code 12.4 % 11.6-14.4 = 412) PLATELET COUNT (BEAKER) (test code = 756) 213 K/CU MM 150-45 0 MEAN PLATELET VOLUME (BEAKER) (test code = 754) 10.7 fL 9.4-12.4 NUCLEATED RED BLOOD CELLS (BEAKER) (test code = 0 /100 WBC 0-0 413) NEUTROPHILS RELATIVE PERCENT (BEAKER) (test code 46 % = 429) LYMPHOCYTES RELATIVE PERCENT (BEAKER) (test code 39 % = 430) MONOCYTES RELATIVE PERCENT (BEAKER) (test code = 10 % 431) EOSINOPHILS RELATIVE PERCENT (BEAKER) (test code 5 % = 432) BASOPHILS RELATIVE PERCENT (BEAKER) (test code = 1 % 437) NEUTROPHILS ABSOLUTE COUNT (BEAKER) (test code = 2.87 K/ L 1.78-5.38 670) LYMPHOCYTES ABSOLUTE COUNT (BEAKER) (test code = 2.46 K/ L 1.32-3.57 414) MONOCYTES ABSOLUTE COUNT (BEAKER) (test code = 0.61 K/ L 0 .30-0.82 415) EOSINOPHILS ABSOLUTE COUNT (BEAKER) (test code = 0.28 K/ L 0.04-0.54 416) BASOPHILS ABSOLUTE COUNT (BEAKER) (test code = 0.03 K/ L 0 .01-0.08 417) IMMATURE GRANULOCYTES-RELATIVE PERCENT (BEAKER) 0 % 0-1 (test code = 2801) COMPREHENSIVE METABOLIC [id number] 07:01:00 Test Item Value Reference Range Comments TOTAL PROTEIN (BEAKER) 6.0 gm/dL 6.0-8.3 Specimen slightly (test code = 770) hemolyzed ALBUMIN (BEAKER) (test 3.5 g/dL 3.5-5.0 Specimen slightly code = 1145) hemolyzed ALKALINE PHOSPHATASE 110 U/L 40-150 (BEAKER) (test code = 346) BILIRUBIN TOTAL (BEAKER) 0.1 mg/dL 0.2-1.2 Specime n slightly (test code = 377) hemolyzed SODIUM (BEAKER) (test code 135 meq/L 136-145 = 381) POTASSIUM (BEAKER) (test 4.0 meq/L 3.5-5.1 Specime n slightly code = 379) hemolyzed CHLORIDE (BEAKER) (test 114 meq/L 98-107 code = 382) CO2 (BEAKER) (test code = 16 meq/L 22-29 355) BLOOD UREA NITROGEN 19 mg/dL 7-21 (BEAKER) (test code = 354) CREATININE (BEAKER) (test 1.28 mg/dL 0.57-1.25 Specim en slightly code = 358) hemolyzed GLUCOSE RANDOM (BEAKER) 97 mg/dL 70-105 (test code = 652) CALCIUM (BEAKER) (test 7.9 mg/dL 8.4-10.2 code = 697) AST (SGOT) (BEAKER) (test 30 U/L 5-34 Specim en slightly code = 353) hemolyzed ALT (SGPT) (BEAKER) (test 42 U/L 6-55 Specim en slightly code = 347) hemolyzed EGFR (BEAKER) (test code = 67 mL/min/1.73 sq m E STIMATED GFR IS NOT 1092) ACCURATE CREA TININE CLEARANCE IN PRE DICTING GLOMERULAR FILTR ATION RATE. ESTIMATED GFR IS NOT APPLICABLE F OR DIALYSIS PATIENT S. Treater ID - HEIDE [facility] W/PLT COUNT & AUTO [id number] 06:03:00 Test Item Value Reference Range Comments WHITE BLOOD CELL COUNT (BEAKER) (test code = 7.2 K/ L 3.5 -10.5 775) RED BLOOD CELL COUNT (BEAKER) (test code = 761) 3.93 M/ L 4.63-6.08 HEMOGLOBIN (BEAKER) (test code = 410) 12.7 GM/DL 13.7-17.5 HEMATOCRIT (BEAKER) (test code = 411) 37.2 % 40.1-51.0 MEAN CORPUSCULAR VOLUME (BEAKER) (test code = 94.7 fL 79 .0-92.2 753) MEAN CORPUSCULAR HEMOGLOBIN (BEAKER) (test code 32.3 pg 25.7-32.2 = 751) MEAN CORPUSCULAR HEMOGLOBIN CONC (BEAKER) (test 34.1 GM/DL 32.3-36.5 code = 752) RED CELL DISTRIBUTION WIDTH (BEAKER) (test code 12.5 % 11.6-14.4 = 412) PLATELET COUNT (BEAKER) (test code = 756) 203 K/CU MM 150-45 0 MEAN PLATELET VOLUME (BEAKER) (test code = 754) 10.2 fL 9.4-12.4 NUCLEATED RED BLOOD CELLS (BEAKER) (test code = 0 /100 WBC 0-0 413) NEUTROPHILS RELATIVE PERCENT (BEAKER) (test code 48 % = 429) LYMPHOCYTES RELATIVE PERCENT (BEAKER) (test code 39 % = 430) MONOCYTES RELATIVE PERCENT (BEAKER) (test code = 9 % 431) EOSINOPHILS RELATIVE PERCENT (BEAKER) (test code 4 % = 432) BASOPHILS RELATIVE PERCENT (BEAKER) (test code = 1 % 437) NEUTROPHILS ABSOLUTE COUNT (BEAKER) (test code = 3.49 K/ L 1.78-5.38 670) LYMPHOCYTES ABSOLUTE COUNT (BEAKER) (test code = 2.79 K/ L 1.32-3.57 414) MONOCYTES ABSOLUTE COUNT (BEAKER) (test code = 0.62 K/ L 0 .30-0.82 415) EOSINOPHILS ABSOLUTE COUNT (BEAKER) (test code = 0.27 K/ L 0.04-0.54 416) BASOPHILS ABSOLUTE COUNT (BEAKER) (test code = 0.04 K/ L 0 .01-0.08 417) IMMATURE GRANULOCYTES-RELATIVE PERCENT (BEAKER) 0 % 0-1 (test code = 2801) URINALYSIS W/ [id number] 23:08:00 Test Item Value Reference Range Comments COLOR (BEAKER) (test code = 470) Yellow CLARITY (BEAKER) (test code = 469) Clear SPECIFIC GRAVITY UA (BEAKER) (test code = 468) 1.030 1 .001-1.035 PH UA (BEAKER) (test code = 467) 6.0 5.0-8.0 PROTEIN UA (BEAKER) (test code = 464) 30 mg/dL Negative GLUCOSE UA (BEAKER) (test code = 365) Negative Negative KETONES UA (BEAKER) (test code = 371) Negative Negative BILIRUBIN UA (BEAKER) (test code = 462) Negative Negative BLOOD UA (BEAKER) (test code = 461) Trace Negative NITRITE UA (BEAKER) (test code = 465) Negative Negative LEUKOCYTE ESTERASE UA (BEAKER) (test code = Negative Nega tive 466) UROBILINOGEN UA (BEAKER) (test code = 463) 0.2 mg/dL 0.2-1 .0 RBC UA (BEAKER) (test code = 519) 5 /HPF WBC UA (BEAKER) (test code = 520) 1 /HPF MUCUS (BEAKER) (test code = 1574) Rare SOURCE(BEAKER) (test code = 2795) Urine, Voided Treater ID - [auto]Treater ID - techRAPID DRUG SCREEN, [id number] 20:17:00 Test Item Value Reference Range Comments BARBITURATE URINE (BEAKER) (test code = 725) Negative Neg ative BENZODIAZEPINE SCREEN URINE (BEAKER) (test code = Positive Negative 726) COCAINE (METAB.) SCREEN (BEAKER) (test code = 1164) Negative Negative METHADONE SCREEN (BEAKER) (test code = 1436) Negative Neg ative OPIATE SCREEN URINE (BEAKER) (test code = 734) Positive N egative CANNABINOID SCREEN URINE (BEAKER) (test code = 727) Negative Negative AMPH/METHAMPH SCREEN (BEAKER) (test code = 1438) Negative Negative PHENCYCLIDINE SCREEN URINE (BEAKER) (test code = Negative Negative 608) PH UA (BEAKER) (test code = 467) 5.5 5.0-8.0 DRUG CUTOFF CONC.Cocaine 300 ng/mL Cannabinoid 50 ng/mLBenzodiazepine 200 ng/mLBarbiturate 200 ng/mLPhencyclidine 25 ng/mLOpiate 300 ng/mLMethadone 300 ng/mLAmphetamine/ 1000 ng/mL MethamphetamineThis assay provides an unconfirmed qualitative test result for the clinical management of patients in emergency situations. Chain of custody not maintained. Some lvvn-fuw-xwwcrbz medications, as well as adulterants, may cause inaccurate results. Clinical correlation should be applied. A more comprehensivedrug screen or confirmation of a detected drug may be performed upon request.Treater ID - KENNOperator ID - [auto][id number] 18:24:00 Test Item Value Reference Range Comments MAGNESIUM (BEAKER) (test code = 627) 1.8 mg/dL 1.6-2.6 Treater ID - KENNCOMPREHENSIVE METABOLIC [id number] 18:24:00 Test Item Value Reference Range Comments TOTAL PROTEIN (BEAKER) 7.2 gm/dL 6.0-8.3 (test code = 770) ALBUMIN (BEAKER) (test 4.4 g/dL 3.5-5.0 code = 1145) ALKALINE PHOSPHATASE 121 U/L 40-150 (BEAKER) (test code = 346) BILIRUBIN TOTAL (BEAKER) 0.3 mg/dL 0.2-1.2 (test code = 377) SODIUM (BEAKER) (test code 137 meq/L 136-145 = 381) POTASSIUM (BEAKER) (test 3.7 meq/L 3.5-5.1 code = 379) CHLORIDE (BEAKER) (test 113 meq/L 98-107 code = 382) CO2 (BEAKER) (test code = 16 meq/L 22-29 355) BLOOD UREA NITROGEN 18 mg/dL 7-21 (BEAKER) (test code = 354) CREATININE (BEAKER) (test 1.33 mg/dL 0.57-1.25 code = 358) GLUCOSE RANDOM (BEAKER) 88 mg/dL 70-105 (test code = 652) CALCIUM (BEAKER) (test 8.6 mg/dL 8.4-10.2 code = 697) AST (SGOT) (BEAKER) (test 88 U/L 5-34 code = 353) ALT (SGPT) (BEAKER) (test 58 U/L 6-55 code = 347) EGFR (BEAKER) (test code = 64 mL/min/1.73 sq m E STIMATED GFR IS NOT 1092) ACCURATE CREA TININE CLEARANCE IN PRE DICTING GLOMERULAR FILTR ATION RATE. ESTIMATED GFR IS NOT APPLICABLE F OR DIALYSIS PATIENT S. Treater ID - KENNURINALYSIS W/ REFLEX URINE [id number] 18:16:00 Test Item Value Reference Range Comments COLOR (BEAKER) (test code = 470) Yellow CLARITY (BEAKER) (test code = 469) Clear SPECIFIC GRAVITY UA (BEAKER) (test code = 468) 1.022 1 .001-1.035 PH UA (BEAKER) (test code = 467) 5.5 5.0-8.0 PROTEIN UA (BEAKER) (test code = 464) 20 mg/dL Negative GLUCOSE UA (BEAKER) (test code = 365) Negative Negative KETONES UA (BEAKER) (test code = 371) Negative Negative BILIRUBIN UA (BEAKER) (test code = 462) Negative Negative BLOOD UA (BEAKER) (test code = 461) Negative Negative NITRITE UA (BEAKER) (test code = 465) Negative Negative LEUKOCYTE ESTERASE UA (BEAKER) (test code = 466) Negative Negative UROBILINOGEN UA (BEAKER) (test code = 463) 0.2 mg/dL 0.2-1 .0 RBC UA (BEAKER) (test code = 519) 1 /HPF WBC UA (BEAKER) (test code = 520) < /HPF MUCUS (BEAKER) (test code = 1574) Rare SOURCE(BEAKER) (test code = 2795) Treater ID - [auto]Treater ID - techPROTHROMBIN TIME/[id number] 18:12:00 Test Item Value Reference Range Comments PROTIME (BEAKER) (test code = 759) 14.3 seconds 11.9-14.2 INR (BEAKER) (test code = 370) 1.1 <=5.9 Effective 03/11/2019: PT Reference Range ChangeNew: 11.9-14.2 Previous: 11.7- 14.7RECOMMENDED COUMADIN/WARFARIN INR THERAPY RANGESSTANDARD DOSE: 2.0-3.0 Includes: PROPHYLAXIS for venous thrombosis, systemic embolization; TREATMENT for venous thrombosis and/or pulmonary embolus.HIGH RISK: Target INR is2.5-3.5 for patients wiht mechanical heart valves.CBC W/PLT COUNT & AUTO [id number] 18:05:00 Test Item Value Reference Range Comments WHITE BLOOD CELL COUNT (BEAKER) (test code = 8.6 K/ L 3.5 -10.5 775) RED BLOOD CELL COUNT (BEAKER) (test code = 761) 4.26 M/ L 4.63-6.08 HEMOGLOBIN (BEAKER) (test code = 410) 13.4 GM/DL 13.7-17.5 HEMATOCRIT (BEAKER) (test code = 411) 39.7 % 40.1-51.0 MEAN CORPUSCULAR VOLUME (BEAKER) (test code = 93.2 fL 79 .0-92.2 753) MEAN CORPUSCULAR HEMOGLOBIN (BEAKER) (test code 31.5 pg 25.7-32.2 = 751) MEAN CORPUSCULAR HEMOGLOBIN CONC (BEAKER) (test 33.8 GM/DL 32.3-36.5 code = 752) RED CELL DISTRIBUTION WIDTH (BEAKER) (test code 12.4 % 11.6-14.4 = 412) PLATELET COUNT (BEAKER) (test code = 756) 269 K/CU MM 150-45 0 MEAN PLATELET VOLUME (BEAKER) (test code = 754) 9.8 fL 9.4-12.4 NUCLEATED RED BLOOD CELLS (BEAKER) (test code = 0 /100 WBC 0-0 413) NEUTROPHILS RELATIVE PERCENT (BEAKER) (test code 53 % = 429) LYMPHOCYTES RELATIVE PERCENT (BEAKER) (test code 36 % = 430) MONOCYTES RELATIVE PERCENT (BEAKER) (test code = 8 % 431) EOSINOPHILS RELATIVE PERCENT (BEAKER) (test code 2 % = 432) BASOPHILS RELATIVE PERCENT (BEAKER) (test code = 1 % 437) NEUTROPHILS ABSOLUTE COUNT (BEAKER) (test code = 4.53 K/ L 1.78-5.38 670) LYMPHOCYTES ABSOLUTE COUNT (BEAKER) (test code = 3.14 K/ L 1.32-3.57 414) MONOCYTES ABSOLUTE COUNT (BEAKER) (test code = 0.70 K/ L 0 .30-0.82 415) EOSINOPHILS ABSOLUTE COUNT (BEAKER) (test code = 0.19 K/ L 0.04-0.54 416) BASOPHILS ABSOLUTE COUNT (BEAKER) (test code = 0.04 K/ L 0 .01-0.08 417) IMMATURE GRANULOCYTES-RELATIVE PERCENT (BEAKER) 0 % 0-1 (test code = 2801) BASIC METABOLIC [id number] 07:05:00 Test Item Value Reference Range Comments SODIUM (BEAKER) (test 138 meq/L 136-145 code = 381) POTASSIUM (BEAKER) (test 3.7 meq/L 3.5-5.1 code = 379) CHLORIDE (BEAKER) (test 106 meq/L 98-107 code = 382) CO2 (BEAKER) (test code = 25 meq/L 22-29 355) BLOOD UREA NITROGEN 10 mg/dL 7-21 (BEAKER) (test code = 354) CREATININE (BEAKER) (test 0.83 mg/dL 0.57-1.25 code = 358) GLUCOSE RANDOM (BEAKER) 88 mg/dL 70-105 (test code = 652) CALCIUM (BEAKER) (test 9.1 mg/dL 8.4-10.2 code = 697) EGFR (BEAKER) (test code 112 mL/min/1.73 sq m ES TIMATED GFR IS NOT = 1092) ACCURATE CREA TININE CLEARANCE IN PRE DICTING GLOMERULAR FILTR ATION RATE. ESTIMATED GFR IS NOT APPLICABLE F OR DIALYSIS PATIENT S. BASIC METABOLIC [id number] 06:45:00 Test Item Value Reference Range Comments SODIUM (BEAKER) (test 139 meq/L 136-145 code = 381) POTASSIUM (BEAKER) (test 3.7 meq/L 3.5-5.1 code = 379) CHLORIDE (BEAKER) (test 108 meq/L 98-107 code = 382) CO2 (BEAKER) (test code = 23 meq/L 22-29 355) BLOOD UREA NITROGEN 10 mg/dL 7-21 (BEAKER) (test code = 354) CREATININE (BEAKER) (test 0.78 mg/dL 0.57-1.25 code = 358) GLUCOSE RANDOM (BEAKER) 81 mg/dL 70-105 (test code = 652) CALCIUM (BEAKER) (test 9.1 mg/dL 8.4-10.2 code = 697) EGFR (BEAKER) (test code 120 mL/min/1.73 sq m ES TIMATED GFR IS NOT = 1092) ACCURATE CREA TININE CLEARANCE IN PRE DICTING GLOMERULAR FILTR ATION RATE. ESTIMATED GFR IS NOT APPLICABLE F OR DIALYSIS PATIENT S. VANCOMYCIN LEVEL, [id number] 21:11:00 Test Item Value Reference Range Comments VANCOMYCIN TROUGH (BEAKER) (test code = 522) 8.3 ug/mL 10. 0-20.0 CBC W/PLT COUNT & AUTO [id number] 08:25:00 Test Item Value Reference Range Comments WHITE BLOOD CELL COUNT (BEAKER) (test code = 7.5 K/ L 3.5 -10.5 775) RED BLOOD CELL COUNT (BEAKER) (test code = 761) 3.86 M/ L 4.63-6.08 HEMOGLOBIN (BEAKER) (test code = 410) 12.4 GM/DL 13.7-17.5 HEMATOCRIT (BEAKER) (test code = 411) 36.2 % 40.1-51.0 MEAN CORPUSCULAR VOLUME (BEAKER) (test code = 93.8 fL 79 .0-92.2 753) MEAN CORPUSCULAR HEMOGLOBIN (BEAKER) (test code 32.1 pg 25.7-32.2 = 751) MEAN CORPUSCULAR HEMOGLOBIN CONC (BEAKER) (test 34.3 GM/DL 32.3-36.5 code = 752) RED CELL DISTRIBUTION WIDTH (BEAKER) (test code 11.5 % 11.6-14.4 = 412) PLATELET COUNT (BEAKER) (test code = 756) 299 K/CU MM 150-45 0 MEAN PLATELET VOLUME (BEAKER) (test code = 754) 9.5 fL 9.4-12.4 NUCLEATED RED BLOOD CELLS (BEAKER) (test code = 0 /100 WBC 0-0 413) (CELLAVISION MANUAL DIFF)2019-03-24 08:25:00 Test Item Value Reference Range Comments NEUTROPHILS - REL (CELLAVISION)(BEAKER) (test code 61 % = 2816) LYMPHOCYTES - REL (CELLAVISION)(BEAKER) (test code 30 % = 2817) MONOCYTES - REL (CELLAVISION)(BEAKER) (test code = 5 % 2818) EOSINOPHILS - REL (CELLAVISION)(BEAKER) (test code 1 % = 2819) BASOPHILS - REL (CELLAVISION)(BEAKER) (test code = 1 % 2820) ATYPICAL LYMPHOCYTES - REL (CELLAVISION)(BEAKER) 2 % 0-0 (test code = 2829) NEUTROPHILS - ABS (CELLAVISION)(BEAKER) (test code 4.58 K/ul 1.78-5.38 = 2830) LYMPHOCYTES - ABS (CELLAVISION)(BEAKER) (test code 2.25 K/ul 1.32-3.57 = 2831) MONOCYTES - ABS (CELLAVISION)(BEAKER) (test code = 0.38 K/uL 0.30-0.82 2832) EOSINOPHILS - ABS (CELLAVISION)(BEAKER) (test code 0.08 K/uL 0.04-0.54 = 2834) BASOPHILS - ABS (CELLAVISION)(BEAKER) (test code = 0.08 K/uL 0.01-0.08 2835) ATYPICAL LYMPHOCYTES - ABS (CELLAVISION)(BEAKER) 0.15 K/uL 0.00-0.00 (test code = 2858) TOTAL COUNTED (BEAKER) (test code = 1351) 100 WBC MORPHOLOGY (BEAKER) (test code = 487) Normal PLT MORPHOLOGY (BEAKER) (test code = 486) Normal ANISOCYTOSIS (BEAKER) (test code = 961) 1+ few MICROCYTES (BEAKER) (test code = 965) 1+ few ARTIFACT (CELLAVISION)(BEAKER) (test code = 3432) Present PLATELET CONCENTRATION (CELLAVISION)(BEAKER) (test Adequate code = 3438) Received comment: User comments: Slide comments:BASIC METABOLIC [id number] 06:26:00 Test Item Value Reference Range Comments SODIUM (BEAKER) (test 137 meq/L 136-145 code = 381) POTASSIUM (BEAKER) (test 3.3 meq/L 3.5-5.1 code = 379) CHLORIDE (BEAKER) (test 104 meq/L 98-107 code = 382) CO2 (BEAKER) (test code = 25 meq/L 22-29 355) BLOOD UREA NITROGEN 11 mg/dL 7-21 (BEAKER) (test code = 354) CREATININE (BEAKER) (test 0.85 mg/dL 0.57-1.25 code = 358) GLUCOSE RANDOM (BEAKER) 92 mg/dL 70-105 (test code = 652) CALCIUM (BEAKER) (test 8.9 mg/dL 8.4-10.2 code = 697) EGFR (BEAKER) (test code 109 mL/min/1.73 sq m ES TIMATED GFR IS NOT = 1092) ACCURATE CREA TININE CLEARANCE IN PRE DICTING GLOMERULAR FILTR ATION RATE. ESTIMATED GFR IS NOT APPLICABLE F OR DIALYSIS PATIENT S. CBC W/PLT COUNT & AUTO [id number] 14:49:00 Test Item Value Reference Range Comments WHITE BLOOD CELL COUNT (BEAKER) (test code = 6.8 K/ L 3.5 -10.5 775) RED BLOOD CELL COUNT (BEAKER) (test code = 761) 4.06 M/ L 4.63-6.08 HEMOGLOBIN (BEAKER) (test code = 410) 13.1 GM/DL 13.7-17.5 HEMATOCRIT (BEAKER) (test code = 411) 37.7 % 40.1-51.0 MEAN CORPUSCULAR VOLUME (BEAKER) (test code = 92.9 fL 79 .0-92.2 753) MEAN CORPUSCULAR HEMOGLOBIN (BEAKER) (test code 32.3 pg 25.7-32.2 = 751) MEAN CORPUSCULAR HEMOGLOBIN CONC (BEAKER) (test 34.7 GM/DL 32.3-36.5 code = 752) RED CELL DISTRIBUTION WIDTH (BEAKER) (test code 11.8 % 11.6-14.4 = 412) PLATELET COUNT (BEAKER) (test code = 756) 301 K/CU MM 150-45 0 MEAN PLATELET VOLUME (BEAKER) (test code = 754) 9.8 fL 9.4-12.4 NUCLEATED RED BLOOD CELLS (BEAKER) (test code = 0 /100 WBC 0-0 413) (CELLAVISION MANUAL DIFF)2019-03-23 14:49:00 Test Item Value Reference Range Comments NEUTROPHILS - REL (CELLAVISION)(BEAKER) (test code 55 % = 2816) LYMPHOCYTES - REL (CELLAVISION)(BEAKER) (test code 32 % = 2817) MONOCYTES - REL (CELLAVISION)(BEAKER) (test code = 7 % 2818) EOSINOPHILS - REL (CELLAVISION)(BEAKER) (test code 3 % = 2819) BASOPHILS - REL (CELLAVISION)(BEAKER) (test code = 3 % 2820) NEUTROPHILS - ABS (CELLAVISION)(BEAKER) (test code 3.74 K/ul 1.78-5.38 = 2830) LYMPHOCYTES - ABS (CELLAVISION)(BEAKER) (test code 2.18 K/ul 1.32-3.57 = 2831) MONOCYTES - ABS (CELLAVISION)(BEAKER) (test code = 0.48 K/uL 0.30-0.82 2832) EOSINOPHILS - ABS (CELLAVISION)(BEAKER) (test code 0.20 K/uL 0.04-0.54 = 2834) BASOPHILS - ABS (CELLAVISION)(BEAKER) (test code = 0.20 K/uL 0.01-0.08 2835) TOTAL COUNTED (BEAKER) (test code = 1351) 100 RBC MORPHOLOGY (BEAKER) (test code = 762) Normal PLT MORPHOLOGY (BEAKER) (test code = 486) Normal SMUDGE CELLS (BEAKER) (test code = 1371) Present ARTIFACT (CELLAVISION)(BEAKER) (test code = 3432) Present PLATELET CONCENTRATION (CELLAVISION)(BEAKER) (test Adequate code = 3438) Received comment: User comments: Slide comments:BASIC METABOLIC [id number] 12:30:00 Test Item Value Reference Range Comments SODIUM (BEAKER) (test 138 meq/L 136-145 code = 381) POTASSIUM (BEAKER) (test 4.0 meq/L 3.5-5.1 code = 379) CHLORIDE (BEAKER) (test 106 meq/L 98-107 code = 382) CO2 (BEAKER) (test code = 22 meq/L 22-29 355) BLOOD UREA NITROGEN 12 mg/dL 7-21 (BEAKER) (test code = 354) CREATININE (BEAKER) (test 0.88 mg/dL 0.57-1.25 code = 358) GLUCOSE RANDOM (BEAKER) 94 mg/dL 70-105 (test code = 652) CALCIUM (BEAKER) (test 9.4 mg/dL 8.4-10.2 code = 697) EGFR (BEAKER) (test code 105 mL/min/1.73 sq m ES TIMATED GFR IS NOT = 1092) ACCURATE CREA TININE CLEARANCE IN PRE DICTING GLOMERULAR FILTR ATION RATE. ESTIMATED GFR IS NOT APPLICABLE F OR DIALYSIS PATIENT S. RAPID DRUG SCREEN, [id number] 21:01:00 Test Item Value Reference Range Comments BARBITURATE URINE (BEAKER) (test code = 725) Positive Neg ative BENZODIAZEPINE SCREEN URINE (BEAKER) (test code = Negative Negative 726) COCAINE (METAB.) SCREEN (BEAKER) (test code = 1164) Negative Negative METHADONE SCREEN (BEAKER) (test code = 1436) Negative Neg ative OPIATE SCREEN URINE (BEAKER) (test code = 734) Positive N egative CANNABINOID SCREEN URINE (BEAKER) (test code = 727) Negative Negative AMPH/METHAMPH SCREEN (BEAKER) (test code = 1438) Negative Negative PHENCYCLIDINE SCREEN URINE (BEAKER) (test code = Negative Negative 608) DRUG CUTOFF CONC.Cocaine 300 ng/mL Cannabinoid 50 ng/mLBenzodiazepine 200 ng/mLBarbiturate 200 ng/mLPhencyclidine 25 ng/mLOpiate 300 ng/mLMethadone 300 ng/mLAmphetamine/ 1000 ng/mL MethamphetamineThis assay provides an unconfirmed qualitative test result for the clinical management of patients in emergency situations. Chain of custody not maintained. Some xmnv-tme-vapflof medications, as well as adulterants, may cause inaccurate results. Clinical correlation should be applied. A more comprehensivedrug screen or confirmation of a detected drug may be performed upon request.URINALYSIS W/ REFLEX URINE [id number] 20:48:00 Test Item Value Reference Range Comments COLOR (BEAKER) (test code = 470) Yellow CLARITY (BEAKER) (test code = 469) Hazy SPECIFIC GRAVITY UA (BEAKER) (test code = 468) 1.034 1 .001-1.035 PH UA (BEAKER) (test code = 467) 6.0 5.0-8.0 PROTEIN UA (BEAKER) (test code = 464) 20 mg/dL Negative GLUCOSE UA (BEAKER) (test code = 365) Negative Negative KETONES UA (BEAKER) (test code = 371) Negative Negative BILIRUBIN UA (BEAKER) (test code = 462) Negative Negative BLOOD UA (BEAKER) (test code = 461) Negative Negative NITRITE UA (BEAKER) (test code = 465) Negative Negative LEUKOCYTE ESTERASE UA (BEAKER) (test code = 466) Negative Negative UROBILINOGEN UA (BEAKER) (test code = 463) 0.2 mg/dL 0.2-1 .0 RBC UA (BEAKER) (test code = 519) 0 /HPF WBC UA (BEAKER) (test code = 520) 1 /HPF BACTERIA (BEAKER) (test code = 517) Occasional MUCUS (BEAKER) (test code = 1574) Occasional SQUAMOUS EPITHELIAL (BEAKER) (test code = 516) < /HPF GRANULAR CASTS (BEAKER) (test code = 515) 2 /LPF YEAST (BEAKER) (test code = 1585) Occasional SOURCE(BEAKER) (test code = 2795) MR, BRAIN, [id number] 15:37:00FINAL REPORT MRI Brain with and without contrast Clinical History: headache, CSF pleocytosis Technique: MRI of the brain utilizing axial T1, T2, FLAIR, GRE, DWI, sagittal T1; and postgadolinium axial, sagittal, and coronal T1-weighted images. Comparisons: [...] suggesting a Chiari I hindbrain configuration. Signed: Antonio, Kenny MDReport Verified Date/Time: 03/22/2019 15:37:41 Reading Location: [facility] [id number] Neuro Reading Room Electronicallysigned by: KENNY ANTONIO M.D. on 03/22/2019 03:37 PMHIV-1 ANTIGEN WITH HIV-1/2 [id number] 14:15:00 Test Item Value Reference Range Comments HIV-1 ANTIGEN WITH HIV 1\T\2 ANTIBODY (2) Nonreactive Nonrea ctive (BEAKER) (test code = 2586) BASIC METABOLIC [id number] 13:55:00 Test Item Value Reference Range Comments SODIUM (BEAKER) (test 140 meq/L 136-145 code = 381) POTASSIUM (BEAKER) (test 3.5 meq/L 3.5-5.1 code = 379) CHLORIDE (BEAKER) (test 105 meq/L 98-107 code = 382) CO2 (BEAKER) (test code = 23 meq/L 22-29 355) BLOOD UREA NITROGEN 12 mg/dL 7-21 (BEAKER) (test code = 354) CREATININE (BEAKER) (test 1.04 mg/dL 0.57-1.25 code = 358) GLUCOSE RANDOM (BEAKER) 109 mg/dL 70-105 (test code = 652) CALCIUM (BEAKER) (test 9.9 mg/dL 8.4-10.2 code = 697) EGFR (BEAKER) (test code 86 mL/min/1.73 sq m EST IMATED GFR IS NOT = 1092) ACCURATE CREA TININE CLEARANCE IN PRE DICTING GLOMERULAR FILTR ATION RATE. ESTIMATED GFR IS NOT APPLICABLE F OR DIALYSIS PATIENT S. CBC W/PLT COUNT & AUTO [id number] 13:35:00 Test Item Value Reference Range Comments WHITE BLOOD CELL COUNT (BEAKER) (test code = 9.8 K/ L 3.5 -10.5 775) RED BLOOD CELL COUNT (BEAKER) (test code = 761) 4.27 M/ L 4.63-6.08 HEMOGLOBIN (BEAKER) (test code = 410) 13.8 GM/DL 13.7-17.5 HEMATOCRIT (BEAKER) (test code = 411) 39.8 % 40.1-51.0 MEAN CORPUSCULAR VOLUME (BEAKER) (test code = 93.2 fL 79 .0-92.2 753) MEAN CORPUSCULAR HEMOGLOBIN (BEAKER) (test code 32.3 pg 25.7-32.2 = 751) MEAN CORPUSCULAR HEMOGLOBIN CONC (BEAKER) (test 34.7 GM/DL 32.3-36.5 code = 752) RED CELL DISTRIBUTION WIDTH (BEAKER) (test code 11.6 % 11.6-14.4 = 412) PLATELET COUNT (BEAKER) (test code = 756) 300 K/CU MM 150-45 0 MEAN PLATELET VOLUME (BEAKER) (test code = 754) 9.7 fL 9.4-12.4 NUCLEATED RED BLOOD CELLS (BEAKER) (test code = 0 /100 WBC 0-0 413) NEUTROPHILS RELATIVE PERCENT (BEAKER) (test code 64 % = 429) LYMPHOCYTES RELATIVE PERCENT (BEAKER) (test code 30 % = 430) MONOCYTES RELATIVE PERCENT (BEAKER) (test code = 5 % 431) EOSINOPHILS RELATIVE PERCENT (BEAKER) (test code 1 % = 432) BASOPHILS RELATIVE PERCENT (BEAKER) (test code = 0 % 437) NEUTROPHILS ABSOLUTE COUNT (BEAKER) (test code = 6.28 K/ L 1.78-5.38 670) LYMPHOCYTES ABSOLUTE COUNT (BEAKER) (test code = 2.91 K/ L 1.32-3.57 414) MONOCYTES ABSOLUTE COUNT (BEAKER) (test code = 0.50 K/ L 0 .30-0.82 415) EOSINOPHILS ABSOLUTE COUNT (BEAKER) (test code = 0.07 K/ L 0.04-0.54 416) BASOPHILS ABSOLUTE COUNT (BEAKER) (test code = 0.04 K/ L 0 .01-0.08 417) IMMATURE GRANULOCYTES-RELATIVE PERCENT (BEAKER) 0 % 0-1 (test code = 2801) HEPATIC FUNCTION [id number] 18:35:00 Test Item Value Reference Range Comments TOTAL PROTEIN (BEAKER) (test code = 770) 7.8 gm/dL 6.0-8.3 ALBUMIN (BEAKER) (test code = 1145) 4.5 g/dL 3.5-5.0 BILIRUBIN TOTAL (BEAKER) (test code = 377) 0.3 mg/dL 0.2-1 .2 BILIRUBIN DIRECT (BEAKER) (test code = 706) 0.2 mg/dL 0.1- 0.5 ALKALINE PHOSPHATASE (BEAKER) (test code = 346) 86 U/L 40-150 AST (SGOT) (BEAKER) (test code = 353) 20 U/L 5-34 ALT (SGPT) (BEAKER) (test code = 347) 34 U/L 6-55 BASIC METABOLIC [id number] 18:34:00 Test Item Value Reference Range Comments SODIUM (BEAKER) (test 136 meq/L 136-145 code = 381) POTASSIUM (BEAKER) (test 3.8 meq/L 3.5-5.1 code = 379) CHLORIDE (BEAKER) (test 103 meq/L 98-107 code = 382) CO2 (BEAKER) (test code = 22 meq/L 22-29 355) BLOOD UREA NITROGEN 11 mg/dL 7-21 (BEAKER) (test code = 354) CREATININE (BEAKER) (test 1.11 mg/dL 0.57-1.25 code = 358) GLUCOSE RANDOM (BEAKER) 134 mg/dL 70-105 (test code = 652) CALCIUM (BEAKER) (test 9.6 mg/dL 8.4-10.2 code = 697) EGFR (BEAKER) (test code 80 mL/min/1.73 sq m EST IMATED GFR IS NOT = 1092) ACCURATE CREA TININE CLEARANCE IN PRE DICTING GLOMERULAR FILTR ATION RATE. ESTIMATED GFR IS NOT APPLICABLE F OR DIALYSIS PATIENT S. CBC W/PLT COUNT & AUTO [id number] 18:28:00 Test Item Value Reference Range Comments WHITE BLOOD CELL COUNT (BEAKER) (test code = 9.7 K/ L 3.5 -10.5 775) RED BLOOD CELL COUNT (BEAKER) (test code = 761) 3.88 M/ L 4.63-6.08 HEMOGLOBIN (BEAKER) (test code = 410) 12.6 GM/DL 13.7-17.5 HEMATOCRIT (BEAKER) (test code = 411) 35.9 % 40.1-51.0 MEAN CORPUSCULAR VOLUME (BEAKER) (test code = 92.5 fL 79 .0-92.2 753) MEAN CORPUSCULAR HEMOGLOBIN (BEAKER) (test code 32.5 pg 25.7-32.2 = 751) MEAN CORPUSCULAR HEMOGLOBIN CONC (BEAKER) (test 35.1 GM/DL 32.3-36.5 code = 752) RED CELL DISTRIBUTION WIDTH (BEAKER) (test code 11.5 % 11.6-14.4 = 412) PLATELET COUNT (BEAKER) (test code = 756) 250 K/CU MM 150-45 0 MEAN PLATELET VOLUME (BEAKER) (test code = 754) 9.8 fL 9.4-12.4 NUCLEATED RED BLOOD CELLS (BEAKER) (test code = 0 /100 WBC 0-0 413) NEUTROPHILS RELATIVE PERCENT (BEAKER) (test code 90 % = 429) LYMPHOCYTES RELATIVE PERCENT (BEAKER) (test code 9 % = 430) MONOCYTES RELATIVE PERCENT (BEAKER) (test code = 1 % 431) EOSINOPHILS RELATIVE PERCENT (BEAKER) (test code 0 % = 432) BASOPHILS RELATIVE PERCENT (BEAKER) (test code = 0 % 437) NEUTROPHILS ABSOLUTE COUNT (BEAKER) (test code = 8.71 K/ L 1.78-5.38 670) LYMPHOCYTES ABSOLUTE COUNT (BEAKER) (test code = 0.86 K/ L 1.32-3.57 414) MONOCYTES ABSOLUTE COUNT (BEAKER) (test code = 0.12 K/ L 0 .30-0.82 415) EOSINOPHILS ABSOLUTE COUNT (BEAKER) (test code = 0.00 K/ L 0.04-0.54 416) BASOPHILS ABSOLUTE COUNT (BEAKER) (test code = 0.01 K/ L 0 .01-0.08 417) IMMATURE GRANULOCYTES-RELATIVE PERCENT (BEAKER) 0 % 0-1 (test code = 2801) RAD, CHEST, 1 VIEW, NON [id number] 16:57:00Reason for exam:->r/o pneumoniaShould this be performed at the bedside?->YesFINAL REPORT Portable chest. MEDICAL HISTORY: Rule out pneumonia. COMPARISON S TUDY: None available. FINDINGS: The cardiac size is unremarkable. There is blunting of the right causing again with adjacent atelectasis or consolidation. No pneumothorax is seen. The regional skeletonis unremarkable. IMPRESSION: Right costophrenic angle blunting. Signed: Bimal Becerril MDReport Verified Date/Time: 03/21/2019 16:57:47 Reading Location: [facility] [id number] [facility] Consult Reading Room
--- OUTSIDE RECORDS SUMMARY | 2020-01-20 23:01 | XMS REPORT | Summary of Care ---
:1990 Author Organization [facility] - [facility] Address [address] [place] [address] Care Team Providers Name Role Phone MD Dg Primary Care Provider Reason for Visit Reason Comments Results Encounter Details Date Type Department Care Team Description 10/27/2019 Telephone [facility] Family Medicine Thomas Siegel MD Results - [place] [address] [address] [facility] [address] [place] [address] [place] [address] [phone] Allergies No Known Allergiesdocumented as of this encounter (statuses as of 10/27/2019) Medications Medication Sig Dispensed Refills Start Date End Date Status valACYclovir 500 mg Take 1 tablet by 21 tablet 1 07/01/2019 Active tabletIndications: mouth 3 (three) Herpes times daily. terbinafine HCl 250 mg Take 1 tablet by 14 tablet 0 07/01/2019 Active tabletIndications: TV mouth daily. (tinea versicolor) promethazine-codeine Take 5 mL by 8 oz 0 07/01/2019 Active 6.25-10 mg/5 mL mouth 4 (four) syrupIndications: Cough times daily as needed for Cough. HYDROcodone-acetaminoph Take 1 tablet by 180 tablet 0 09/30/20 19 Active en 10-325 mg mouth every 4 tabletIndications: (four) hours as Chronic pain due to needed for Pain trauma (scale 4-6). carisoprodol 350 mg Take 1 tablet by 60 tablet 1 09/30/2019 Active tabletIndications: mouth 2 (two) Chronic pain due to times daily as trauma needed for Pain (scale 4-6). dextroamphetamine-amphe Take 1 tablet by 60 tablet 0 9 Active tamine (ADDERALL) 20 mg mouth 2 (two) tabletIndications: times daily. Attention deficit disorder (ADD) without hyperactivity ALPRAZolam 2 mg Take 1 tablet by 90 tablet 1 09/30/2019 Active tabletIndications: mouth 3 (three) Anxiety times daily as needed for Sleep. documented as of this encounter (statuses as of 10/27/2019) Active Problems Problem Noted Date Attention deficit disorder (ADD) without hyperactivity 07/29/2017 Dehydration 03/09/2016 Anxiety 08/18/2015 Chronic pain due to injury 08/18/2015 documented as of this encounter (statuses as of 10/27/2019) Social History Tobacco Use Types Packs/Day Years Used Date Current Some Day Smoker Smokeless Tobacco: Never Used Alcohol Use Drinks/Week oz/Week Comments No Sex Assigned at Date Recorded Not on file Job Start Date Occupation Industry Not on file Not on file Not on file Travel History Travel Start Travel End No recent travel history available. documented as of this encounter Last Filed Vital Signs Not on filedocumented in this encounter Plan of Treatment Date Type Specialty Care Team Description 11/09/2019 Office Visit Family Medicine Julissa Mckinnon, AURICULOTHERAPIST [address] [address] Health Maintenance Due Date Last Done Comments VARICELLA VACCINES (1 of 2 - 2-dose childhood series) 1993 PNEUMOCOCCAL 0-64 YEARS COMBINED SERIES (1 of 1 - 1998 PPSV23) DTaP,Tdap,and Td Vaccines (1 - Tdap) 2003 INFLUENZA VACCINE (#1) 2019 documented as of this encounter Results Not on filedocumented in this encounter Insurance Payer Benefit Plan / Subscriber ID Effective Phone Address T ype Group Dates [employer] [id number] 2016-Pre [phone] [employer] [facility] sent [phone] [facility] , [address] [place] [address] documented as of this encounter
--- OUTSIDE RECORDS SUMMARY | 2020-01-20 23:01 | XMS REPORT | Summary of Care ---
:1990 Author Organization [facility] Address [address] [place] [address] Care Team Providers Name Role Phone MD Dg Primary Care Provider Reason for Visit Reason Comments Refill Request Encounter Details Date Type Department Care Team Description 11/26/2019 Telephone [facility] Family Med Conte MD Refill Request [place] [address] [address] [place] [address] [place] [address] [phone] Allergies No Known Allergiesdocumented as of this encounter (statuses as of 11/26/2019) Medications Medication Sig Dispensed Refills Start Date [...] Cough times daily as needed for Cough. ALPRAZolam 2 mg Take 1 tablet by 90 tablet 1 10/29/2019 Active tabletIndications: mouth 3 (three) Anxiety times daily as needed for Sleep. carisoprodoL 350 mg Take 1 tablet by 60 tablet 1 10/29/2019 Active tabletIndications: mouth 2 (two) Chronic pain due to times daily as trauma needed for Pain (scale 4-6). dextroamphetamine-amphe Take 1 tablet by 60 tablet 0 0 Active tamine (ADDERALL) 20 mg mouth 2 (two) tabletIndications: times daily. Attention deficit disorder (ADD) without hyperactivity HYDROcodone-acetaminoph Take 1 tablet by 180 tablet 0 10/29/19 20 Active en 10-325 mg mouth every 4 tabletIndications: (four) hours as Chronic pain due to needed for Pain trauma (scale 4-6). documented as of this encounter (statuses as of 11/26/2019) Active Problems Problem Noted Date Attention deficit disorder (ADD) without hyperactivity 07/29/2017 Dehydration 03/09/2016 Anxiety 08/18/2015 Chronic pain due to injury 08/18/2015 documented as of this encounter (statuses as of 11/26/2019) Social History Tobacco Use Types Packs/Day Years [...] Treatment Date Type Specialty Care Team Description 12/02/2019 Office Visit Family Medicine Thomas Conte MD [address] [place] [phone] Health Maintenance Due Date Last Done Comments [...] Address T ype Group Dates [employer] [id number] 2016-Pre [phone] [facility] sent [phone] [facility] , [address] [place] [address] documented as of this encounter
--- OUTSIDE RECORDS SUMMARY | 2020-01-20 23:02 | XMS REPORT | Summary of Care ---
:1990 Author Organization [facility] - [facility] Address [address] [place] [address] Care Team Providers Name Role Phone MD Dg Primary Care Provider Reason for Visit Reason Comments Results Encounter Details Date Type Department Care Team Description 10/27/2019 Telephone [facility] Family Medicine Thomas Siegel MD Results - [place] [address] [address] [facility] [address] [place] [address] [place] [address] [phone] Allergies No Known Allergiesdocumented as of this [...] 11/09/2019 Office Visit Family Medicine Julissa Mckinnon, STATION BAGGAGE AGENT [address] [address] Health Maintenance Due Date Last Done [...] Address T ype Group Dates [employer] [id number] 2016-Pre [phone] [facility] sent [phone] [facility] , [address] [place] [address] documented as of this encounter
--- OUTSIDE RECORDS SUMMARY | 2020-01-20 23:02 | XMS REPORT | Summary of Care ---
:1990 Author Organization [facility] Address [address] [place] [address] Care Team Providers Name Role Phone MD Dg Primary Care Provider Reason for Visit Reason Comments Refill Request Encounter Details Date Type Department Care Team Description 10/28/2019 Refill [facility] Family Medicine Thomas Siegel MD Refill Request - [address] [address] [place] [address] [phone] Allergies No Known Allergiesdocumented as of this encounter (statuses as of 10/28/2019) Medications Medication Sig Dispensed Refills Start Date [...] as of this encounter (statuses as of 10/28/2019) Active Problems Problem Noted Date Attention deficit disorder (ADD) without hyperactivity 07/29/2017 Dehydration 03/09/2016 Anxiety 08/18/2015 Chronic pain due to injury 08/18/2015 documented as of this encounter (statuses as of 10/28/2019) Social History Tobacco Use Types Packs/Day Years [...] 11/09/2019 Office Visit Family Medicine Julissa Mckinnon, MANUFACTURING PLANT TECHNICIAN [address] [address] Health Maintenance Due Date Last Done Comments VARICELLA VACCINES (1 of 2 - 2-dose childhood series) 1993 PNEUMOCOCCAL 0-64 YEARS COMBINED SERIES (1 of 1 - 1998 PPSV23) DTaP,Tdap,and Td Vaccines (1 - Tdap) 2003 INFLUENZA VACCINE (#1) 2019 documented as of this encounter Results Not on filedocumented in this encounter Visit Diagnoses Diagnosis Chronic pain due to trauma Attention deficit disorder (ADD) without hyperactivity Anxiety Anxiety state, unspecified documented in this encounter Insurance Payer Benefit Plan / Subscriber ID Effective Phone Address T [facility] Group Dates [employer] [id number] 2016-Pre [phone] [facility] vior[facility] sent [phone] [facility] , [address] [place] [address] documented as of this encounter
--- OUTSIDE RECORDS SUMMARY | 2020-01-20 23:02 | XMS REPORT | Summary of Care ---
:1990 Author Organization [facility] Address [address] [place] [address] Care Team Providers Name Role Phone MD Dg Primary Care Provider Reason for Visit Reason Comments Refill Request Encounter Details Date Type Department Care Team Description 10/28/2019 Refill [facility] Family Medicine Thomas Siegel MD Refill Request - [address] [address] [place] [address] [phone] Allergies No Known Allergiesdocumented as of this [...] 11/09/2019 Office Visit Family Medicine Julissa Mckinnon, SOLAR PHOTOVOLTAIC ELECTRICIAN [address] [address] Health Maintenance Due Date Last Done [...] / Subscriber ID Effective Phone Address T [facility] Group Dates BE[employer] [id number] 2016-Pre [phone] Be[facility] vior[facility] sent [phone] [facility] , [address] [place] [address] documented as of this encounter
--- OUTSIDE RECORDS SUMMARY | 2020-01-20 23:03 | XMS REPORT | Summary of Care ---
:1990 Author Organization [facility] Address [address] [place] [address] Care Team Providers Name Role Phone MD Dg Primary Care Provider Reason for Visit Reason Comments Refill Request Encounter Details Date Type Department Care Team Description 10/28/2019 Refill [facility] Family Medicine Thomas Siegel MD Refill Request - [address] [address] [place] [address] [phone] Allergies No Known Allergiesdocumented as of this encounter (statuses as of 10/29/2019) Medications Medication Sig Dispensed Refills Start Date [...] as of this encounter (statuses as of 10/29/2019) Active Problems Problem Noted Date Attention deficit disorder (ADD) without hyperactivity 07/29/2017 Dehydration 03/09/2016 Anxiety 08/18/2015 Chronic pain due to injury 08/18/2015 documented as of this encounter (statuses as of 10/29/2019) Social History Tobacco Use Types Packs/Day Years [...] 11/09/2019 Office Visit Family Medicine Julissa Mckinnon, HEALTH AND SAFETY MANAGER [address] [address] Health Maintenance Due Date Last Done [...] / Subscriber ID Effective Phone Address T [facility] Group Dates [employer] [id number] 2016-Pre [phone] Be[facility] vior[facility] sent [phone] [facility] , [address] [place] [address] documented as of this encounter
--- OUTSIDE RECORDS SUMMARY | 2020-01-20 23:03 | XMS REPORT | Summary of Care ---
:1990 Author Organization [facility] Address [address] [place] [address] Care Team Providers Name Role Phone MD Dg Primary Care Provider Reason for Visit Reason Comments Rx Concern/Question Encounter Details Date Type Department Care Team Description 10/28/2019 Telephone [facility] [place] [facility] Conte MD Rx Concern/Question Medicine - [address] [phone] Allergies No Known Allergiesdocumented as of this [...] 11/09/2019 Office Visit Family Medicine Julissa Mckinnon, SNEHAL [address] [address] Health Maintenance Due Date Last Done Comments VARICELLA VACCINES (1 of 2 - 2-dose childhood series) 1993 PNEUMOCOCCAL 0-64 YEARS COMBINED SERIES (1 of 1 - 1998 PPSV23) DTaP,Tdap,and Td Vaccines (1 - Tdap) 2003 INFLUENZA VACCINE (#1) 2019 documented as of this encounter Results Not on filedocumented in this encounter Insurance Payer Benefit Plan / Subscriber ID Effective Phone Address T e Group Dates [employer] [id number] 2016-Pre [phone] Be[facility] sent [phone] [facility] , [address] [place] [address] documented as of this encounter
--- OUTSIDE RECORDS SUMMARY | 2020-01-20 23:03 | XMS REPORT | Summary of Care ---
:1990 Author Organization [facility] - [facility] Address [address] [place] [address] Care Team Providers Name Role Phone MD Dg Primary Care Provider Encounter Details Date Type Department Care Team Description 11/05/2019 Orders Only [facility] Doctor Unassigned, No [address] [facility] [place] [address] [address] [place] [address] Allergies No Known Allergiesdocumented as of this encounter (statuses as of 11/05/2019) Medications Medication Sig Dispensed Refills Start Date [...] as of this encounter (statuses as of 11/05/2019) Active Problems Problem Noted Date Attention deficit disorder (ADD) without hyperactivity 07/29/2017 Dehydration 03/09/2016 Anxiety 08/18/2015 Chronic pain due to injury 08/18/2015 documented as of this encounter (statuses as of 11/05/2019) Social History Tobacco Use Types Packs/Day Years [...] 11/09/2019 Office Visit Family Medicine Julissa Mckinnon, LIQUOR TESTER [address] [address] Health Maintenance Due Date Last Done Comments VARICELLA VACCINES (1 of 2 - 2-dose childhood series) 1993 PNEUMOCOCCAL 0-64 YEARS COMBINED SERIES (1 of 1 - 1998 PPSV23) DTaP,Tdap,and Td Vaccines (1 - Tdap) 2003 INFLUENZA VACCINE (#1) 2019 documented as of this encounter Procedures Procedure Name Priority Date/Time Associated Diagnosis Comme nts EXTERNAL PROVIDER Routine 11/05/2019 12:01 AM PRESSURE TESTING TECHNICIAN RECORDS documented in this encounter Results Not on filedocumented in this encounter Insurance Payer Benefit Plan / Subscriber ID Effective Phone Address T ype Group Dates [employer] [id number] 2016-Pre [phone] Beha [facility]ior[facility] sent [phone] [facility] , [address] [place] [address] documented as of this encounter
--- OUTSIDE RECORDS SUMMARY | 2020-01-20 23:03 | XMS REPORT | Summary of Care ---
:1990 Author Organization [facility] Address [address] [place] [address] Care Team Providers Name Role Phone MD Dg Primary Care Provider Reason for Visit Reason Comments Refill Request Encounter Details Date Type Department Care Team Description 10/28/2019 Refill [facility] Family Medicine Thomas Siegel MD Refill Request - [address] [address] [place] [address] [phone] Allergies No Known Allergiesdocumented as of this encounter (statuses as of 10/29/2019) Medications Medication Sig Dispensed Refills Start Date End Date Status valACYclovir 500 mg Take 1 21 tablet 1 07/01/2019 Active tabletIndications: tablet by Herpes mouth 3 (three) times daily. terbinafine HCl 250 Take 1 14 tablet 0 07/01/2019 Active mg tablet by tabletIndications: mouth TV (tinea daily. versicolor) promethazine-codein Take 5 mL 8 oz 0 07/01/2019 Active e 6.25-10 mg/5 mL by mouth 4 syrupIndications: (four) Cough times daily as needed for Cough. ALPRAZolam 2 mg Take 1 90 tablet 1 10/29/2019 Act tasha tabletIndications: tablet by Anxiety mouth 3 (three) times daily as needed for Sleep. carisoprodoL 350 mg Take 1 60 tablet 1 10/29/2019 Active tabletIndications: tablet by Chronic pain due to mouth 2 trauma (two) times daily as needed for Pain (scale 4-6). dextroamphetamine-a Take 1 60 tablet 0 10/29/2019 Active mphetamine tablet by (ADDERALL) 20 mg mouth 2 tabletIndications: (two) times Attention deficit daily. disorder (ADD) without hyperactivity HYDROcodone-acetami Take 1 180 tablet 0 10/29/2019 Active nophen 10-325 mg tablet by tabletIndications: mouth every Chronic pain due to 4 (four) trauma hours as needed for Pain (scale 4-6). HYDROcodone-acetami Take 1 180 tablet 0 09/30/2019 10/29/19 2 Discontinued nophen 10-325 mg tablet by 0 (Re order) tabletIndications: mouth every Chronic pain due to 4 (four) trauma hours as needed for Pain (scale 4-6). carisoprodol 350 mg Take 1 60 tablet 1 09/30/2019 Discontinued tabletIndications: tablet by 0 ( Reorder) Chronic pain due to mouth 2 trauma (two) times daily as needed for Pain (scale 4-6). dextroamphetamine-a Take 1 60 tablet 0 09/30/2019 Discontinued mphetamine tablet by 0 (Reorder) (ADDERALL) 20 mg mouth 2 tabletIndications: (two) times Attention deficit daily. disorder (ADD) without hyperactivity ALPRAZolam 2 mg Take 1 90 tablet 1 09/30/2019 Dis continued tabletIndications: tablet by 0 ( Reorder) Anxiety mouth 3 (three) times daily as needed for Sleep. documented [...] 11/09/2019 Office Visit Family Medicine Julissa Mckinnon, MILIEU COORDINATOR [address] [address] Health Maintenance Due Date Last Done [...] Address T e Group Dates [employer] [id number] 2016-Pre [phone] Beha vioral [facility] sent [phone] [facility] , [address] [place] [address] documented as of this encounter
--- OUTSIDE RECORDS SUMMARY | 2020-01-20 23:03 | XMS REPORT | Summary of Care ---
:1990 Author Organization [facility] Address [address] [place] [address] Care Team Providers Name Role Phone MD Dg Primary Care Provider Reason for Visit Reason Comments Refill Request Encounter Details Date Type Department Care Team Description 10/28/2019 Refill [facility] Family Medicine Thomas Siegel MD Refill Request - [address] [address] [place] [address] [phone] Allergies No Known Allergiesdocumented as of this [...] 11/09/2019 Office Visit Family Medicine Julissa Mckinnon, BARGE CAPTAIN [address] [address] Health Maintenance Due Date Last Done [...] / Subscriber ID Effective Phone Address T [facility] Group Dates [employer] [id number] 2016-Pre [phone] Beha vioral [facility] sent [phone] [facility] , [address] [place] [address] documented as of this encounter
--- OUTSIDE RECORDS SUMMARY | 2020-01-20 23:04 | XMS REPORT | Summary of Care ---
:1990 Author Organization [facility] Address [address] [place] [address] Care Team Providers Name Role Phone MD Dg Primary Care Provider Reason for Visit Reason Comments Refill Request Headache Neck Pain Back Pain Encounter Details Date Type Department Care Team Description 12/02/2019 Office Visit [facility] Family Med Conte MD Chronic pain due to injury (Primary Dx); [facility] [address] Anxiety; [facility] [address] [facility] [address] Attention deficit disorder (ADD) without hyperactivity; [place], [place] Chronic pain du e to trauma [id number] Allergies No Known Allergiesdocumented as of this encounter (statuses as of 12/02/2019) Medications Medication Sig Dispensed Refills Start Date [...] Cough times daily as needed for Cough. HYDROcodone-acetami Take 1 180 tablet 0 12/02/2019 Active nophen 10-325 mg tablet by tabletIndications: mouth every Chronic pain due to 4 (four) trauma hours as needed for Pain (scale 4-6). dextroamphetamine-a Take 1 60 tablet 0 12/02/2019 Active mphetamine tablet by (ADDERALL) 20 mg mouth 2 tabletIndications: (two) times Attention deficit daily. disorder (ADD) without hyperactivity ALPRAZolam 2 mg Take 1 90 tablet 1 12/02/2019 Act tasha tabletIndications: tablet by Anxiety mouth 3 (three) times daily as needed for Sleep. carisoprodoL 350 mg Take 1 60 tablet 1 12/02/2019 Active tabletIndications: tablet by Chronic pain due to mouth 2 trauma (two) times daily as needed for Pain (scale 4-6). ALPRAZolam 2 mg Take 1 90 tablet 1 10/29/2019 Dis continued tabletIndications: tablet by 0 ( Reorder) Anxiety mouth 3 (three) times daily as needed for Sleep. carisoprodoL 350 mg Take 1 60 tablet 1 10/29/2019 Discontinued tabletIndications: tablet by 0 ( Reorder) Chronic pain due to mouth 2 trauma (two) times daily as needed for Pain (scale 4-6). dextroamphetamine-a Take 1 60 tablet 0 10/29/2019 Discontinued mphetamine tablet by 0 (Reorder) (ADDERALL) 20 mg mouth 2 tabletIndications: (two) times Attention deficit daily. disorder (ADD) without hyperactivity HYDROcodone-acetami Take 1 180 tablet 0 10/29/2019 12/02/19 2 Discontinued nophen 10-325 mg tablet by 0 (Re order) tabletIndications: mouth every Chronic pain due to 4 (four) trauma hours as needed for Pain (scale 4-6). documented as of this encounter (statuses as of 12/02/2019) Active Problems Problem Noted Date Attention deficit disorder (ADD) without hyperactivity 07/29/2017 Dehydration 03/09/2016 Anxiety 08/18/2015 Chronic pain due to injury 08/18/2015 documented as of this encounter (statuses as of 12/02/2019) Social History Tobacco Use Types Packs/Day Years [...] of this encounter Last Filed Vital Signs Vital Sign Reading Time Taken Comments Blood Pressure 114/112 12/02/2019 9:26 AM INVOICE CONTROL CLERK Pulse 96 12/02/2019 9:26 AM INVOICE CONTROL CLERK Temperature - - Respiratory Rate - - Oxygen Saturation - - Inhaled Oxygen Concentration - - Weight 74.8 kg (165 lb) 12/02/2019 9:26 AM INVOICE CONTROL CLERK Height - - Body Mass Index 24.37 05/29/2018 7:41 PM CDT documented in this encounter Progress Notes Thomas Conte MD - 12/02/2019 9:15 AM CST Cc:chronic pain Chief Complaint Patient presents with Refill Request Headache Neck Pain Back Pain Adolfo Goel is a 29 year old male. Here for chronic pain, anxiety Allergies Adolfo has No Known Allergies. Medications Outpatient Medications Prior to Visit Medication Sig Dispense Refill ALPRAZolam 2 mg tablet Take 1 tablet by mouth 3 (three) times daily as needed for Sleep. 90 tablet 1 carisoprodoL 350 mg tablet Take 1 tablet by mouth 2 (two) times daily as needed for Pain (scale 4-6). 60 tablet 1 dextroamphetamine-amphetamine (ADDERALL) 20 mg tablet Take 1 tablet by mouth 2 (two) times daily. 60 tablet 0 HYDROcodone-acetaminophen 10-325 mg tablet Take 1 tablet by mouth every 4 (four) hours as neededfor Pain (scale 4-6). 180 tablet 0 promethazine-codeine 6.25-10 mg/5 mL syrup Take 5 mL by mouth 4 (four) times daily as needed forCough. 8 oz 0 terbinafine HCl 250 mg tablet Take 1 tablet by mouth daily. 14 tablet 0 valACYclovir 500 mg tablet Take 1 tablet by mouth 3 (three) times daily. 21 tablet 1 No facility-administered medications prior to visit. Histories Past Medical History: Diagnosis Date Anxiety Past Surgical History: Procedure Laterality Date EXPLORATORY LAPAROTOMY Social History Socioeconomic History Marital status: Single Spouse name: Not on file Number of children: Not on file Years of education: Not on file Highest education level: Not on file Occupational History Not on file Social Needs Financial resource strain: Not on file Food insecurity: Worry: Not on file Inability: Not on file Transportation needs: Medical: Not on file Non-medical: Not on file Tobacco Use Smoking status: Current Some Day Smoker Smokeless tobacco: Never Used Substance and Sexual Activity Alcohol use: No Drug use: No Sexual activity: Yes Partners: Female Lifestyle Physical activity: Days per week: Not on file Minutes per session: Not on file Stress: Not on file Relationships Social connections: Talks on phone: Not on file Gets together: Not on file Attends episcopal service: Not on file Active member of club or organization: Not on file Attends meetings of clubs or organizations: Not on file Relationship status: Not on file Intimate partner violence: Fear of current or ex partner: Not on file Emotionally abused: Not on file Physically abused: Not on file Forced sexual activity: Not on file Other Topics Concern Not on file Social History Narrative Not on file No family history on file. Review of Systems Vital Signs BP (!) 114/112 | Pulse 96 | Wt 165 lb (74.8 kg) | BMI 24.37 kg/m Physical Exam Constitutional: He is oriented to person, place, and time. He appears well- developed and well-nourished. HENT: Head: Normocephalic and atraumatic. Right Ear: External ear normal. Left Ear: External ear normal. Mouth/Throat: Oropharynx is clear and moist. Eyes: Pupils are equal, round, and reactive to light. EOM are normal. Cardiovascular: Normal rate, regular rhythm and normal heart sounds. Pulmonary/Chest: Effort normal and breath sounds normal. Abdominal: Soft. Musculoskeletal: Normal range of motion. Neurological: He is alert and oriented to person, place, and time. Skin: Skin is warm. Vitals reviewed. Assessment/Plan Chronic pain, medication refill Anxiety, medication refill VELAZQUEZ, medication refill This visit did not involve counseling and coordination that comprised more than 50% of the visit time. documented in this encounter Plan of Treatment Health Maintenance Due Date Last Done Comments VARICELLA VACCINES (1 of 2 - 2-dose childhood series) 1993 PNEUMOCOCCAL 0-64 YEARS COMBINED SERIES (1 of 1 - 1998 PPSV23) DTaP,Tdap,and Td Vaccines (1 - Tdap) 2003 INFLUENZA VACCINE (#1) 2019 documented as of this encounter Results Not on filedocumented in this encounter Visit Diagnoses Diagnosis Chronic pain due to injury - Primary Chronic pain due to trauma Anxiety Anxiety state, unspecified Attention deficit disorder (ADD) without hyperactivity Chronic pain due to trauma documented in this encounter"
--- OUTSIDE RECORDS SUMMARY | 2020-01-20 23:04 | XMS REPORT | Summary of Care ---
:1990 Author Organization [facility] Address [address] [place] [address] Care Team Providers Name Role Phone MD Dg Primary Care Provider Reason for Visit Reason Comments Refill Request Headache Neck Pain Back Pain Encounter Details Date Type Department Care Team Description 12/02/2019 Office Visit [facility] Family Med Conte MD Chronic pain due to injury (Primary Dx); [facility] [address] Anxiety; [facility] [address] [facility] [address] Attention deficit disorder (ADD) without hyperactivity; [place], [place] Chronic pain du e to trauma [...] Comments Blood Pressure 114/112 12/02/2019 9:26 AM NURSE SCHOOL Pulse 96 12/02/2019 9:26 AM NURSE SCHOOL Temperature - - Respiratory Rate - - Oxygen Saturation - - Inhaled Oxygen Concentration - - Weight 74.8 kg (165 lb) 12/02/2019 9:26 AM NURSE SCHOOL Height - - Body Mass Index 24.37 [...] file Gets together: Not on file Attends holiness service: Not on file Active member of [...]
--- OUTSIDE RECORDS SUMMARY | 2020-01-20 23:05 | XMS REPORT | Summary of Care ---
:1990 Author Organization [facility] Address [address] [place] [address] Care Team Providers Name Role Phone MD Dg Primary Care Provider Reason for Visit Reason Comments Medication Problem Encounter Details Date Type Department Care Team Description 12/16/2019 Telephone [facility] Family Med Conte MD Medication Problem Medicine - [address] [phone] Allergies No Known Allergiesdocumented as of this encounter (statuses as of 12/18/2019) Medications Medication Sig Dispensed Refills Start Date [...] Take 1 tablet by 180 tablet 0 12/02/19 20 Active en 10-325 mg mouth every 4 tabletIndications: (four) hours as Chronic pain due to needed for Pain trauma (scale 4-6). dextroamphetamine-amphe Take 1 tablet by 60 tablet 0 0 Active tamine (ADDERALL) 20 mg mouth 2 (two) tabletIndications: times daily. Attention deficit disorder (ADD) without hyperactivity ALPRAZolam 2 mg Take 1 tablet by 90 tablet 1 12/02/2019 Active tabletIndications: mouth 3 (three) Anxiety times daily as needed for Sleep. carisoprodoL 350 mg Take 1 tablet by 60 tablet 1 12/02/2019 Active tabletIndications: mouth 2 (two) Chronic pain due to times daily as trauma needed for Pain (scale 4-6). documented as of this encounter (statuses as of 12/18/2019) Active Problems Problem Noted Date Attention deficit disorder (ADD) without hyperactivity 07/29/2017 Dehydration 03/09/2016 Anxiety 08/18/2015 Chronic pain due to injury 08/18/2015 documented as of this encounter (statuses as of 12/18/2019) Social History Tobacco Use Types Packs/Day Years [...] Treatment Date Type Specialty Care Team Description 03/02/2020 Office Visit Family Medicine Thomas Conte MD [address] [place] [phone] Health Maintenance Due Date Last Done [...] Address T e Group Dates BEACON BEACON [id number] 2016-Pre [phone] [facility] sent [address] [facility] , [address] [place] [address] documented as of this encounter
--- OUTSIDE RECORDS SUMMARY | 2020-01-20 23:05 | XMS REPORT | Summary of Care ---
:1990 Author Organization [facility] Address [address] [place] [address] Care Team Providers Name Role Phone MD Dg Primary Care Provider Reason for Visit Auth/Cert Status Reason Specialty Diagnoses / Referred By Referred To Procedures Contact Contact Emergency Medicine Diagnoses VOMITING BLOOD [facility] Emergency Dept [address] [place] [address] Fax: Encounter Details Date Type Department Care Team Description 12/19/2019 Anesthesia [facility] OR Hafsa Rodriguez MD Department [address] [place] [phone] [place] [address] Allergies No Known Allergiesdocumented as of this encounter (statuses as of 12/19/2019) Medications Medication Sig Dispensed Refills Start Date End Date Status HYDROcodone-acetamin Take 1 tablet by 180 tablet 0 12/02/2019 Suspended ophen 10-325 mg mouth every 4 tabletIndications: (four) hours as Chronic pain due to needed for Pain trauma (scale 4-6). Additional information dextroamphetamine-amphetamine Take 1 tablet 60 tablet 0 2019 Suspended (ADDERALL) 20 mg tabletIndications: by mouth 2 Attention deficit disorder (ADD) (two) times without hyperactivity daily. Additional information ALPRAZolam 2 mg Take 1 tablet by 90 tablet 1 12/02/2019 Suspended tabletIndications: Anxiety mouth 3 (three) times daily as needed for Sleep. Additional information carisoprodoL 350 mg Take 1 tablet by 60 tablet 1 12/02/2019 Suspended tabletIndications: Chronic pain mouth 2 (two) times due to trauma daily as needed for Pain (scale 4-6). Additional information documented as of this encounter (statuses as of 12/19/2019) Active Problems Problem Noted Date Hematemesis 12/19/2019 Hematemesis with nausea 12/18/2019 Overview: Added automatically from request for rona betsy [id number] Hematemesis without nausea 12/18/2019 Overview: Added automatically from request for rona betsy [id number] Attention deficit disorder (ADD) without hyperactivity 07/29/2017 Dehydration 03/09/2016 Anxiety 08/18/2015 Chronic pain due to injury 08/18/2015 documented as of this encounter (statuses as of 12/19/2019) Social History Tobacco Use Types Packs/Day Years Used Date Current Some Day Smoker Smokeless Tobacco: Former User Comments: smoked in teens, socially Alcohol Use Drinks/Week oz/Week Comments No Sex [...] Office Visit Family Medicine Thomas Conte MD [address] [place] [address] [phone] Health Maintenance Due Date Last Done Comments VARICELLA VACCINES (1 of 2 - 2-dose childhood series) 1993 PNEUMOCOCCAL 0-64 YEARS COMBINED SERIES (1 of 1 - 1998 PPSV23) DTaP,Tdap,and Td Vaccines (1 - Tdap) 2003 INFLUENZA VACCINE (#1) 2019 documented as of this encounter Procedures Procedure Name Priority Date/Time Associated Diagnosis Comme nts INTUBATION Routine 12/19/2019 3:59 PM Results for this ARCHITECTURAL TECHNOLOGIST procedure are i n the results section . documented in this encounter Results Intubation (12/19/2019 3:59 PM ARCHITECTURAL TECHNOLOGIST) Narrative Performed At Jose Tolliver DO 12/19/2019 4:00 P M Intubation Date/Time: 12/19/2019 3:59 PM Urgency: elective Airway not difficult General Information and Staff Patient location during procedure: OR Anesthesiologist: Adan Rodriguez MD Resident/LOCKMAKER: Marlyn Guadalupe MD Other anesthesia staff: Jose Tolliver DO Performed: resident/LOCKMAKER Indications and Patient Condition Indications for airway management: anest hesia and airway protection Spontaneous Ventilation: absent Sedation level: deep Preoxygenated: yes Patient position: sniffing MILS maintained throughout Mask difficulty assessment: 0 - not atte mpted Final Airway Details Final airway type: endotracheal airway Successful airway: ETT Cuffed: yes Successful intubation technique: direct laryngoscopy Facilitating devices/methods: cricoid pr essure Endotracheal tube insertion site: oral Blade: Lilly Blade size: #2 ETT size (mm): 7.5 Cormack-Lehane Classification: grade IIa - partial view of glottis Placement verified by: chest auscultatio n Cuff volume (mL): 8 Measured from: lips ETT to lips (cm): 21 Number of attempts at approach: 1 Ventilation between attempts: none Number of other approaches attempted: 0 documented in this encounter Administered Medications Medication Order MAR Action Action Date Dose Rate Site esmolol (BREVIBLOC) injection Given 12/19/2019 4:19 PM ARCHITECTURAL TECHNOLOGIST 20 mg ONCE INTRA PROCEDURE, Starting 12/19/19 at 1619, Until 12/19/19 at 1624, Routine, Intra-op FENTanyl PF (SUBLIMAZE (PF)) injection Given 12/19/2019 3:52 PM ARCHITECTURAL TECHNOLOGIST 100 mcg Slow IV Push, ONCE INTRA PROCEDURE, Starting 12/19/19 at 1552, Until 12/19/19 at 1624, Routine, Intra-op lactated ringers IV infusion New Bag 12/19/2019 3:47 PM ARCHITECTURAL TECHNOLOGIST IV Infusion, CONTINUOUS PRN, Starting 12/19/19 at 1547, Until Sat 20 at 1624, Routine, Intra-op lidocaine 1% (XYLOCAINE) 100 mg/10 mL (1 %) Given 12/19/2019 3:52 PM ARCHITECTURAL TECHNOLOGIST 10 mL injection Slow IV Push, ONCE INTRA PROCEDURE, Starting 12/19/19 at 1552, Until Sat 20 at 1624, Routine, Intra-op midazolam (VERSED) injection Given 12/19/2019 3:47 PM ARCHITECTURAL TECHNOLOGIST 2 mg IV Push, ONCE INTRA PROCEDURE, Starting 12/19/19 at 1547, Until 12/19/19 at 1624, Routine, Intra-op ondansetron (ZOFRAN (PF)) injection Given 12/19/2019 4:14 PM ARCHITECTURAL TECHNOLOGIST 4 mg Slow IV Push, ONCE INTRA PROCEDURE, Starting 12/19/19 at 1614, Until 12/19/19 at 1624, Routine, Intra-op PHENYLephrine 1000 mcg/10 mL in 0.9% NaCl Given 12/19/2019 4:09 PM ARCHITECTURAL TECHNOLOGIST 100 mcg syringe ONCE INTRA PROCEDURE, Starting 12/19/19 at 1608, Until 12/19/19 at 1624, Routine, Intra-op Given 12/19/2019 4:08 PM ARCHITECTURAL TECHNOLOGIST 100 mcg propofol IV infusion Given 12/19/2019 4:00 PM ARCHITECTURAL TECHNOLOGIST 20 mg Slow IV Push, ONCE INTRA PROCEDURE, Starting 12/19/19 at 1553, Until 12/19/19 at 1624, Routine, Intra-op Given 12/19/2019 3:57 PM ARCHITECTURAL TECHNOLOGIST 30 mg Given 12/19/2019 3:53 PM ARCHITECTURAL TECHNOLOGIST 150 mg succinylcholine (QUELICIN) injection Given 12/19/2019 3:52 PM ARCHITECTURAL TECHNOLOGIST 40 mg IV Push, ONCE INTRA PROCEDURE, Starting 12/19/19 at 1552, Until 12/19/19 at 1624, Routine, Intra-op documented in this encounter
--- OUTSIDE RECORDS SUMMARY | 2020-01-20 23:05 | XMS REPORT | Summary of Care ---
:1990 Author Organization [facility] - Health Address [address] [place] [address] Care Team Providers Name Role Phone MD Dg Primary Care Provider Encounter Details Date Type Department Care Team Description 12/18/2019 Orders Only [facility] Doctor Unassigned, No [address] [facility] Name [place] [id number] [place] [address] Allergies No Known Allergiesdocumented as of this [...] Office Visit Family Medicine Thomas Conte MD [address] [place] [phone] Health Maintenance Due Date Last Done Comments VARICELLA VACCINES (1 of 2 - 2-dose childhood series) 1993 PNEUMOCOCCAL 0-64 YEARS COMBINED SERIES (1 of 1 - 1998 PPSV23) DTaP,Tdap,and Td Vaccines (1 - Tdap) 2003 INFLUENZA VACCINE (#1) 2019 documented as of this encounter Procedures Procedure Name Priority Date/Time Associated Diagnosis Comme nts CONSENT/REFUSAL FOR Routine 12/18/2019 7:21 PM [facility] documented in this encounter Results Not on filedocumented in this encounter Insurance Payer Benefit Plan / Subscriber ID Effective Phone Address T ype Group Dates [employer] [id number] 2016-Pre [phone] [facility]ha [facility] sent [phone] [facility] , [address] [place] [address] documented as of this encounter
--- OUTSIDE RECORDS SUMMARY | 2020-01-20 23:08 | XMS REPORT | Summary of Care ---
:[address] [facility] Address [address] [place] [address] Care Team Providers Name Role Phone MD Dg Primary Care Provider Reason for Visit Reason Comments Refill Request Encounter Details Date Type Department Care Team Description 12/28/2019 Refill [facility] Family Medicine Thomas Siegel MD Refill Request - [address] [address] [place] [address] [phone] Allergies No Known Allergiesdocumented as of this encounter (statuses as of 12/30/2019) Medications Medication Sig Dispensed Refills Start Date End Date Status maalox:diphenhydrA Swish and 30 Bottle 0 12/20/2019 Active MINE:lidocaine 2 % swallow 15 mL 0 viscous once daily as 1:1:1Indications: needed for Hematemesis with Oral mucositis nausea, for up to 31 Hematemesis days. without nausea pantoprazole 40 mg Take 1 tablet 58 tablet 0 12/20/2019 Active EC by mouth 2 0 tabletIndications: (two) times Hematemesis with daily for 14 nausea, days, THEN 1 Hematemesis tablet daily without nausea for 30 days. dextroamphetamine- Take 1 tablet 60 tablet 0 12/30/2019 Active amphetamine by mouth 2 (ADDERALL) 20 mg (two) times tabletIndications: daily. Attention deficit disorder (ADD) without hyperactivity carisoprodoL 350 Take 1 tablet 60 tablet 1 12/30/2019 Active mg by mouth 2 tabletIndications: (two) times Chronic pain due daily as to trauma needed for Pain (scale 4-6). ALPRAZolam 2 mg Take 1 tablet 90 tablet 1 12/30/2019 Active tabletIndications: by mouth 3 Anxiety (three) times daily as needed for Sleep. dextroamphetamine- Take 1 tablet 60 tablet 0 12/02/2019 Discontinued amphetamine by mouth 2 0 (Reorde r) (ADDERALL) 20 mg (two) times tabletIndications: daily. Attention deficit disorder (ADD) without hyperactivity ALPRAZolam 2 mg Take 1 tablet 90 tablet 1 12/02/2019 Discontinued tabletIndications: by mouth 3 0 (Reorder) Anxiety (three) times daily as needed for Sleep. carisoprodoL 350 Take 1 tablet 60 tablet 1 12/02/2019 12/30/19 2 Discontinued mg by mouth 2 0 (Reorder) tabletIndications: (two) times Chronic pain due daily as to trauma needed for Pain (scale 4-6). documented as of this encounter (statuses as of 12/30/2019) Active Problems Problem Noted Date Hematemesis 12/19/2019 Hematemesis with nausea 12/18/2019 Overview: Added automatically from request for rona betsy [id number] Hematemesis without nausea 12/18/2019 Overview: Added automatically from request for rona betsy [id number] Attention deficit disorder (ADD) without hyperactivity 07/29/2017 Dehydration 03/09/2016 Anxiety 08/18/2015 Chronic pain due to injury 08/18/2015 documented as of this encounter (statuses as of 12/30/2019) Social History Tobacco Use Types Packs/Day Years [...] Office Visit Family Medicine Thomas Conte MD [address] [place] [phone] Health Maintenance Due Date Last Done Comments VARICELLA VACCINES (1 of 2 - 2-dose childhood series) 1993 PNEUMOCOCCAL 0-64 YEARS COMBINED SERIES (1 of 1 - 1998 PPSV23) DTaP,Tdap,and Td Vaccines (1 - Tdap) 2003 INFLUENZA VACCINE (#1) 2019 documented as of this encounter Results Not on filedocumented in this encounter Visit Diagnoses Diagnosis Attention deficit disorder (ADD) without hyperactivity Chronic pain due to trauma Anxiety Anxiety state, unspecified documented in this encounter Insurance Payer Benefit Plan / Subscriber ID Effective Phone Address T ype Group Dates [employer] [id number] 2016-Pre [phone] [facility] sent [phone] [facility] , [address] [place] [address] documented as of this encounter
--- OUTSIDE RECORDS SUMMARY | 2020-01-20 23:08 | XMS REPORT | Summary of Care ---
:1992 Author Organization [facility] - [facility] Address [address] [place] [address] Care Team Providers Name Role Phone MD Dg Primary Care Provider Reason for Visit Reason Comments Refill Request Encounter Details Date Type Department Care Team Description 12/28/2019 Telephone [facility] Family Med Conte MD Refill Request Medicine - [address] [address] [place] [address] [phone] Allergies No Known Allergiesdocumented as of this encounter (statuses as of 12/31/2019) Medications Medication Sig Dispensed Refills Start Date [...] as of this encounter (statuses as of 12/31/2019) Active Problems Problem Noted Date Hematemesis 12/19/2019 Hematemesis with nausea 12/18/2019 Overview: Added automatically from request for rona betsy [id number] Hematemesis without nausea 12/18/2019 Overview: Added automatically from request for rona betsy [id number] Attention deficit disorder (ADD) without hyperactivity 07/29/2017 Dehydration 03/09/2016 Anxiety 08/18/2015 Chronic pain due to injury 08/18/2015 documented as of this encounter (statuses as of 12/31/2019) Social History Tobacco Use Types Packs/Day Years [...] Office Visit Family Medicine Thomas Conte MD [address] [place] [phone] Health Maintenance Due Date Last Done Comments [...] Address T ype Group Dates BEACON BEACON [id number] 2016-Pre [phone] [facility] sent [phone] [facility] , [address] [place] [address] documented as of this encounter
--- OUTSIDE RECORDS SUMMARY | 2020-01-20 23:08 | XMS REPORT | Summary of Care ---
:1990 Author Organization [facility] Address [address] [place] [id number] Care Team Providers Name Role Phone MD Dg Primary Care Provider Reason for Visit Reason Comments Refill Request Encounter Details Date Type Department Care Team Description 12/24/2019 Refill [facility] Family Medicine Thomas Siegel MD Refill Request - [address] [address] [place] [address] [phone] Allergies No Known Allergiesdocumented as of this encounter (statuses as of 12/24/2019) Medications Medication Sig Dispensed Refills Start Date End Date Status dextroamphetamine-amp Take 1 tablet by 60 tablet 0 12/02/2019 Active hetamine (ADDERALL) mouth 2 (two) 20 mg times daily. tabletIndications: Attention deficit disorder (ADD) without hyperactivity ALPRAZolam 2 mg Take 1 tablet by 90 tablet 1 12/02/2019 Active tabletIndications: mouth 3 (three) Anxiety times daily as needed for Sleep. carisoprodoL 350 mg Take 1 tablet by 60 tablet 1 12/02/2019 Active tabletIndications: mouth 2 (two) Chronic pain due to times daily as trauma needed for Pain (scale 4-6). maalox:diphenhydrAMIN Swish and swallow 30 Bottle 0 12/20/2019 01/20/2020 Active E:lidocaine 2 % 15 mL once daily viscous as needed for 1:1:1Indications: Oral mucositis Hematemesis with for up to 31 nausea, Hematemesis days. without nausea pantoprazole 40 mg EC Take 1 tablet by 58 tablet 0 12/20/2019 02/02/2020 Active tabletIndications: mouth 2 (two) Hematemesis with times daily for nausea, Hematemesis 14 days, THEN 1 without nausea tablet daily for 30 days. documented as of this encounter (statuses as of 12/24/2019) Active Problems Problem Noted Date Hematemesis 12/19/2019 Hematemesis with nausea 12/18/2019 Overview: Added automatically from request for rona betsy [id number] Hematemesis without nausea 12/18/2019 Overview: Added automatically from request for rona betsy [id number] Attention deficit disorder (ADD) without hyperactivity 07/29/2017 Dehydration 03/09/2016 Anxiety 08/18/2015 Chronic pain due to injury 08/18/2015 documented as of this encounter (statuses as of 12/24/2019) Social History Tobacco Use Types Packs/Day Years [...] Office Visit Family Medicine Thomas Conte MD [address] [place] [address] [phone] Health Maintenance Due Date Last Done Comments VARICELLA VACCINES (1 of 2 - 2-dose childhood series) 1993 PNEUMOCOCCAL 0-64 YEARS COMBINED SERIES (1 of 1 - 1998 PPSV23) DTaP,Tdap,and Td Vaccines (1 - Tdap) 2003 INFLUENZA VACCINE (#1) 2019 documented as of this encounter Results Not on filedocumented in this encounter Visit Diagnoses Diagnosis Attention deficit disorder (ADD) without hyperactivity documented in this encounter Insurance Payer Benefit Plan / Subscriber ID Effective Phone Address [facility] Dates [employer] [id number] 2016-Pre [phone] [facility] sent [id number] [facility] , [address] [place] [id number] documented as of this encounter
--- OUTSIDE RECORDS SUMMARY | 2020-01-20 23:08 | XMS REPORT | Summary of Care ---
:1990 Author Organization [facility] Address [address] [place] [address] Care Team Providers Name Role Phone MD Dg Primary Care Provider Reason for Referral (Routine) Status Reason Specialty Diagnoses / Referred By Referred To Procedures Contact Contact New Request Diagnoses Hematemesis with nausea Hematemesis without nausea Acute gastritis without hemorrhage, unspecified gastritis type Pierce Hart MD Rogers, Anthony, Procedures Discharge Follow-up: PCP GREG SEN; 3-5 Days [address] [facility] [place], [place] [address] [address] [address] Phone: [place], [place] [phone] Fax: Radiology Services (STAT) Status Reason Specialty Diagnoses / Referred By Referred To Procedures Contact Contact New Request Diagnostic Diagnoses Hematemesis with nausea Abdominal pain in male Ib[place]unle, Radiology Procedures XR CHEST 1 VW Folusho F, HAND PATTERN MARKER [address] [place] [phone] MRI/CAT Scan (STAT) Status Reason Specialty Diagnoses / Referred By Referred To Procedures Contact Contact New Request Diagnostic Diagnoses Hematemesis with nausea Ib[place]unle, Radiology Procedures CT ABDOMEN PELVIS W CONTRAST Folusho F, HAND PATTERN MARKER [address] [place] [address] Reason for Visit Reason Comments Vomiting Blood Auth/Cert Status Reason Specialty Diagnoses / Referred By Referred To Procedures Contact Contact Emergency Medicine Diagnoses VOMITING BLOOD [facility] Emergency Dept [address] [facility] [address] [place] [address] Fax: Encounter Details Date Type Department Care Team Description 12/18/2019 - Emergency Medicine ([place] 10C) Carrie Yadav, HAND PATTERN MARKER [address] [place] [address] Hematemesis 12/20/2019 712 [facility] Jennifer Holbrook MD [address] [place] [address] [place] [address] Luanne Maciel MD [address] [place] [address] [phone] Allergies No Known Allergiesdocumented as of this encounter (statuses as of 12/20/2019) Medications Medication Sig Dispensed Refills Start Date End Date Status dextroamphetamine-a Take 1 tablet 60 tablet 0 12/02/2019 Active mphetamine by mouth 2 (ADDERALL) 20 mg (two) times tabletIndications: daily. Attention deficit disorder (ADD) without hyperactivity ALPRAZolam 2 mg Take 1 tablet 90 tablet 1 12/02/2019 Active tabletIndications: by mouth 3 Anxiety (three) times daily as needed for Sleep. carisoprodoL 350 mg Take 1 tablet 60 tablet 1 12/02/2019 Active tabletIndications: by mouth 2 Chronic pain due to (two) times trauma daily as needed for Pain (scale 4-6). maalox:diphenhydrAM Swish and 30 Bottle 0 12/20/2019 Active INE:lidocaine 2 % swallow 15 mL 0 viscous once daily as 1:1:1Indications: needed for Oral Hematemesis with mucositis for nausea, Hematemesis up to 31 days. without nausea pantoprazole 40 mg Take 1 tablet 58 tablet 0 12/20/2019 Active EC by mouth 2 0 tabletIndications: (two) times Hematemesis with daily for 14 nausea, Hematemesis days, THEN 1 without nausea tablet daily for 30 days. valACYclovir 500 mg Take 1 tablet 21 tablet 1 07/01/201912/18 Discontinued tabletIndications: by mouth 3 0 Herpes (three) times daily. terbinafine HCl 250 Take 1 tablet 14 tablet 0 07/01/201912/18 Discontinued mg by mouth daily. 0 tabletIndications: TV (tinea versicolor) promethazine-codein Take 5 mL by 8 oz 0 07/01/2019 Discontinued e 6.25-10 mg/5 mL mouth 4 (four) 0 syrupIndications: times daily as Cough needed for Cough. HYDROcodone-acetami Take 1 tablet 180 tablet 0 12/02/2019 03 Discontinued nophen 10-325 mg by mouth every 0 tabletIndications: 4 (four) hours Chronic pain due to as needed for trauma Pain (scale 4-6). pantoprazole 40 mg Take 1 tablet 60 tablet 2 12/20/2019 Discontinued EC by mouth 2 0 tabletIndications: (two) times Hematemesis with daily for 90 nausea, Hematemesis days. without nausea documented as of this encounter (statuses as of 12/20/2019) Active Problems Problem Noted Date Hematemesis 12/19/2019 Hematemesis with nausea 12/18/2019 Overview: Added automatically from request for rona betsy [id number] Hematemesis without nausea 12/18/2019 Overview: Added automatically from request for rona betsy [id number] Attention deficit disorder (ADD) without hyperactivity 07/29/2017 Dehydration 03/09/2016 Anxiety 08/18/2015 Chronic pain due to injury 08/18/2015 documented as of this encounter (statuses as of 12/20/2019) Social History Tobacco Use Types Packs/Day Years Used Date Current Some Day Smoker Smokeless Tobacco: Former User Tobacco Cessation: Ready to Quit: No; Co unseling Given: No Comments: smoked in teens, socially Alcohol Use Drinks/Week oz/Week Comments No Sex Assigned at Date Recorded Not on file Job Start Date Occupation Industry Not on file Not on file Not on file Travel History Travel Start Travel End No recent travel history available. documented as of this encounter Last Filed Vital Signs Vital Sign Reading Time Taken Comments Blood Pressure 138/78 12/20/2019 11:20 AM CDT Pulse 90 12/20/2019 11:20 AM CDT Temperature 36.8 C (98.3 F) 12/20/2019 11:20 AM CDT Respiratory Rate 16 12/20/2019 11:20 AM CDT Oxygen Saturation 99% 12/20/2019 11:20 AM CDT Inhaled Oxygen Concentration - - Weight 78.5 kg (173 lb 1.6 oz) 12/19/2019 12:45 AM CIVIL GEOTECHNICAL ENGINEER Height 175.3 cm (5' 9") 12/19/2019 12:45 AM CIVIL GEOTECHNICAL ENGINEER Body Mass Index 25.56 12/19/2019 12:45 AM CIVIL GEOTECHNICAL ENGINEER documented in this encounter Discharge Instructions AttachmentsThe following attachments cannot be sent through Care Everywhere. Abdominal Pain, Adhesions (Namibian)Abdominal Pain, Adult (Namibian)Pantoprazole tablets (Namibian)Aluminum Hydroxide; Magnesium Hydroxide; Simethicone oral suspension (Namibian)Upper GI Bleeding (Stable) (Namibian)documented in this encounter Progress Notes Dru Shin DO - 12/19/2019 7:48 AM CST [facility] TEAM BRIEF NOTE Date of Service: 12/19/2019 07:48 HD #: 0 CC: Hematemesis 24 Hour Events - Admitted to [facility] Team - GI Consulted, planning for EGD Assessment & Plan Adolfo Goel is a 29 year old male admitted to the [facility] Team with: Hematemesis Chronic NSAID Use Chronic Back Pain Comment: Pt presenting w/ c/o Hematemesis. HgB >14 on admission, downtrended to 11 w/ fluids. GI consulted and planning for EGD. Plan: - 18ga X2 - Type/Screen - GI consulted appreciate recs - Protonix ggt - IVFs - H/H q8h - Avoid NSAIDs - Analgesia (Home meds) as below MDD DWAYNE ADHD Comment: Stable problems, on home meds. Plan: - Holding Adderall - Alprazolam 2mg po tTIDPRN - Soma BIDPRN Inpatient Ppx: Analgesia Plan: - c/w APAP 650mg po q6hPRN - c/w Norco10 po q6hPRN Dru Shin DO PGY-2 [facility] Team [phone] END OF DAILY PROGRESS NOTE documented in this encounter Plan of Treatment Date Type Specialty Care Team Description 03/02/2020 Office Visit Family Medicine Greg Sen MD [address] [place] [address] [phone] Name Type Priority Associated Diagnoses Date/Ti me URINE DRUG (LCMSMS) - LAB Routine 2019 1:12 PM CIVIL GEOTECHNICAL ENGINEER SYNTHETIC OPIATES PANEL URINE DRUG (LCMSMS) - LAB Routine 2019 1:12 PM CIVIL GEOTECHNICAL ENGINEER OPIATES PANEL Name Type Priority Associated Diagnoses Order S chedule BASIC METABOLIC PANEL LAB Routine EVERY 24 HOURS (START TIME (NA, K, CL, CO2, ADJUSTABLE) for 7 Days GLUCOSE, BUN, starting 12/18 until CREATININE, CA) 12/25/2019, 2 completed HEPATIC FUNCTION PANEL LAB Routine EVERY 24 HOURS (START TIME (41268) (ALB,T.PRO,BILI ADJU STABLE) for 3 Days T,BU/BC,ALT,AST,ALK starting 12/19/2019 until PHOS) 12/21/2019, 2 c ompleted URINE DRUG (LCMSMS) - LAB Routine ONCE f or 1 Occurrences SYNTHETIC OPIATES PANEL star ting 12/19/2019 until 12/19/2019 URINE DRUG (LCMSMS) - LAB Routine ONCE f or 1 Occurrences OPIATES PANEL starting 12/18 until 12/19/2019 PROFILE / HEMOGRAM LAB Routine EVERY 12 HOURS (START TIME ADJUSTABLE) for 3 Days starting 2019 until 12/22/2019, 2 c ompleted Health Maintenance Due Date Last Done Comments VARICELLA VACCINES (1 of 2 - 2-dose childhood series) 1993 PNEUMOCOCCAL 0-64 YEARS COMBINED SERIES (1 of 1 - 1998 PPSV23) DTaP,Tdap,and Td Vaccines (1 - Tdap) 2003 INFLUENZA VACCINE (#1) 2019 documented as of this encounter Procedures Procedure Name Priority Date/Time Associated Diagnosis Comme nts PROFILE / HEMOGRAM Routine 12/20/2019 2:10 Resul ts for this PM CDT procedure are i n the results section. PROFILE / HEMOGRAM Routine 12/20/2019 1:19 Resul ts for this AM CIVIL GEOTECHNICAL ENGINEER procedure are i n the results section. BASIC METABOLIC PANEL Routine 12/20/2019 1:19 Re sults for this (NA, K, CL, CO2, AM CIVIL GEOTECHNICAL ENGINEER procedure a re in GLUCOSE, BUN, the results CREATININE, CA) section. HEPATIC FUNCTION Routine 12/20/2019 1:19 Results for this PANEL ([id number]) AM CIVIL GEOTECHNICAL ENGINEER procedure are in (ALB,T.PRO,BILI the results T,BU/BC,ALT,AST,ALK section. PHOS) ABORH CONFIRMATION Routine 12/19/2019 5:20 Resul ts for this PM CIVIL GEOTECHNICAL ENGINEER procedure are i n the results section. HB ABO GROUPING Routine 12/19/2019 3:20 Results for this PM CIVIL GEOTECHNICAL ENGINEER procedure are i n the results section. PROFILE / HEMOGRAM Routine 12/19/2019 1:24 Resul ts for this PM CIVIL GEOTECHNICAL ENGINEER procedure are i n the results section. GALV/CLC ONLY - URINE Routine 12/19/2019 1:12 Re sults for this DRUG (IMMUNOASSAY) - PM CIVIL GEOTECHNICAL ENGINEER procedu re are in 4 ER PANEL the results section. PROFILE / HEMOGRAM Routine 12/19/2019 5:10 Resul ts for this AM CIVIL GEOTECHNICAL ENGINEER procedure are i n the results section. FIBRINOGEN Routine 12/19/2019 5:09 Results for this AM CIVIL GEOTECHNICAL ENGINEER procedure are i n the results section. PROTHROMBIN TIME / Routine 12/19/2019 5:09 Resul ts for this INR AM CIVIL GEOTECHNICAL ENGINEER procedure are i n the results section. BASIC METABOLIC PANEL Routine 12/19/2019 5:09 Re sults for this (NA, K, CL, CO2, AM CIVIL GEOTECHNICAL ENGINEER procedure a re in GLUCOSE, BUN, the results CREATININE, CA) section. HEPATIC FUNCTION Routine 12/19/2019 5:09 Results for this PANEL ([id number]) AM CIVIL GEOTECHNICAL ENGINEER procedure are in (ALB,T.PRO,BILI the results T,BU/BC,ALT,AST,ALK section. PHOS) XR CHEST 1 VW STAT 12/18/2019 8:58 Hematemesis with Result s for this PM CIVIL GEOTECHNICAL ENGINEER nausea procedure are in Abdominal pain in the result s male section. URINE CULTURE STAT 12/18/2019 8:42 Hematemesis with Result s for this PM CIVIL GEOTECHNICAL ENGINEER nausea procedure are in Abdominal pain in the result s male section. URINALYSIS STAT 12/18/2019 8:42 Hematemesis with Results for this PM CIVIL GEOTECHNICAL ENGINEER nausea procedure are in Abdominal pain in the result s male section. CT ABDOMEN PELVIS W STAT 12/18/2019 8:34 Hematemesis with Results for this CONTRAST PM CIVIL GEOTECHNICAL ENGINEER nausea procedure are i n the results section. CBC WITH DIFFERENTIAL STAT 12/18/2019 7:41 Hematemesis wit h Results for this PM CIVIL GEOTECHNICAL ENGINEER nausea procedure are i n the results section. ACTIVATED PARTIAL STAT 12/18/2019 7:41 Hematemesis with Re sults for this THRMPLAS DARRELL PM CIVIL GEOTECHNICAL ENGINEER nausea procedure are i n the results section. PROTHROMBIN TIME / STAT 12/18/2019 7:41 Hematemesis with R esults for this INR PM CIVIL GEOTECHNICAL ENGINEER nausea procedure are i n the results section. CBC WITH DIFFERENTIAL Routine 12/18/2019 7:41 Hematemesis wit h Results for this PM CIVIL GEOTECHNICAL ENGINEER nausea procedure are i n the results section. BASIC METABOLIC PANEL STAT 12/18/2019 7:41 Hematemesis wit h Results for this (NA, K, CL, CO2, PM CIVIL GEOTECHNICAL ENGINEER nausea procedure a re in GLUCOSE, BUN, the results CREATININE, CA) section. HEPATIC FUNCTION STAT 12/18/2019 7:41 Hematemesis with Res ults for this PANEL ([id number]) PM CIVIL GEOTECHNICAL ENGINEER nausea procedure are in (ALB,T.PRO,BILI the results T,BU/BC,ALT,AST,ALK section. PHOS) LIPASE STAT 12/18/2019 7:41 Hematemesis with Results for this PM CIVIL GEOTECHNICAL ENGINEER nausea procedure are i n the results section. EKG-12 LEAD Routine 12/18/2019 7:38 PM CIVIL GEOTECHNICAL ENGINEER NOTICE OF PRIVACY Routine 12/18/2019 7:27 PRACTICES PM CIVIL GEOTECHNICAL ENGINEER documented in this encounter Results PROFILE / HEMOGRAM (12/20/2019 2:10 PM CDT) Pathologist Sig nature WBC 7.17 4.20 - 10.70 [facility] 10*3/L SERVICES RBC 3.72 (L) 4.26 - 5.52 [facility] 10*6/L SERVICES HGB 12.2 12.2 - 16.4 g/dL [facility] HCT 36.4 (L) 38.4 - 49.3 % [facility] MCH 32.8 (H) 26.1 - 32.7 pg [facility] MCV 97.8 (H) 81.7 - 95.6 fL [facility] MCHC 33.5 31.2 - 35.0 g/dL [facility] PLT 225 150 - 328 10*3/L [facility] MPV 9.5 (L) 9.8 - 13.0 fL [facility] RDW-CV 14.5 12.1 - 15.4 % [facility] RDW-SD 52.6 (H) 38.5 - 51.6 fL [facility] NRBC x10^3 <0.01 10*3/L [facility] NRBC/100 WBC 0.0 0.0 - 10.0 /100 [facility] WBCs SERVICES IPF % [facility] Specimen Blood - HAND, RIGHT Performing Organization Address City/State/Zipcode Phone Number [facility] CLIA: [id number], [address] [place] [phone] [facility] PROFILE / HEMOGRAM (12/20/2019 1:19 AM CIVIL GEOTECHNICAL ENGINEER) Pathologist Sig nature WBC 9.58 4.20 - 10.70 [facility] 10*3/L SERVICES RBC 3.34 (L) 4.26 - 5.52 [facility] 10*6/L SERVICES HGB 11.2 (L) 12.2 - 16.4 g/dL [facility] HCT 32.8 (L) 38.4 - 49.3 % [facility] MCH 33.5 (H) 26.1 - 32.7 pg [facility] MCV 98.2 (H) 81.7 - 95.6 fL [facility] MCHC 34.1 31.2 - 35.0 g/dL [facility] PLT 212 150 - 328 10*3/L [facility] MPV 10.0 9.8 - 13.0 fL [facility] RDW-CV 14.6 12.1 - 15.4 % [facility] RDW-SD 52.9 (H) 38.5 - 51.6 fL [facility] NRBC x10^3 <0.01 10*3/L [facility] NRBC/100 WBC 0.0 0.0 - 10.0 /100 [facility] WBCs SERVICES IPF % [facility] Specimen Blood - ARM, RIGHT Performing Organization Address [facility]/Zipcode Phone Number [facility] CLIA: [id number], [address] [place] [phone] [facility] HEPATIC FUNCTION PANEL ([id number]) (ALB,T.PRO,BILI T,BU/BC,ALT,AST,ALK PHOS) (12/20/2019 1:19 AM CIVIL GEOTECHNICAL ENGINEER) Pathologist Sig nature TOTAL BILI 0.4 0.1 - 1.1 mg/dL [facility] SERVICES BILI UNCON 0.3 0.1 - 1.1 mg/dL [facility] BILI CONJ 0.0 0.0 - 0.3 mg/dL [facility] T PROTEIN 6.7 6.3 - 8.2 g/dL [facility] ALBUMIN 3.7 3.5 - 5.0 g/dL [facility] ALK PHOS 45 34 - 122 U/L [facility] ALTv 111 (H) 5 - 50 U/L [facility] AST(SGOT) 63 (H) 13 - 40 U/L [facility] SERVICES Specimen Blood - ARM, RIGHT Performing Organization Address City/[facility]/Zipcode Phone Number [facility] CLIA: [id number], [address] [place] [phone] [facility] BASIC METABOLIC PANEL (NA, K, CL, CO2, GLUCOSE, BUN, CREATININE, CA) (12/20/2019 1:19 AM CIVIL GEOTECHNICAL ENGINEER) NA 137 135 - 145 [facility] mmol/L SERVICES K 4.5Comment: 3.5 - 5.0 [facility] Slight hemolysis mmol/L SERVICES CL 110 (H) 98 - 108 [facility] mmol/L SERVICES CO2 TOTAL 21 (L) 23 - 31 [facility] mmol/L SERVICES AGAP 6 2 - 16 [facility] SERVICES BUN 14Comment: Slight 7 - 23 mg/dL [facility] hemolysis SERVICES GLUCOSE 105 70 - 110 [facility] mg/dL SERVICES CREATININE 1.16 0.60 - 1.25 [facility] mg/dL SERVICES CALCIUM 8.1 (L) 8.6 - 10.6 [facility] mg/dL SERVICES eGFR Calculation 75.5 mL/min/1.73m2 [facility] (Non- SERVICES Nepalese) eGFR Calculation 91.5 mL/min/1.73m2 [facility] () SERVICES Specimen Blood - ARM, RIGHT Narrative Performed At Association of Glomerular Filtration Rate (GFR) and St aging [facility] SERVICES of Kidney Disease* + + +------- ------ + | GFR (mL/min/1.73 m2) | With Kidney Damage | Wi thout Kidney Damage + + +------- ------ + | >90 | Stage one | Normal + + +------- ------ + | 60-89 | Stage two | Decreased GFR + + +------- ------ + | 30-59 | Stage three | Stage three + + +------- ------ + | 15-29 | Stage four | Stage four + + +------- ------ + | <15 (or dialysis) | Stage five | Stage five + + +------- ------ + *Each stage assumes the associated GFR level has been in effect for at least three months. Stages 1 to 5, wit h or without kidney disease, indicate chronic kidney disease. Notes: Determination of stages one and two (with eGFR >59mL/min/1.73 m2) requires estimation of kidney damag e for at least three months as defined by structural or func tional abnormalities of the kidney, manifested by either: Pathological abnormalities or Markers of kidney damage (including abnormalities in the composition of the blo od or urine or abnormalities in imaging tests) . Performing Organization Address City/State/Zipcode Phone Number [facility] CLIA: [id number], [address] [place] [address] [facility] ABORH CONFIRMATION (12/19/2019 5:20 PM CIVIL GEOTECHNICAL ENGINEER) Pathologist Sig nature ABO & RH A Positive LAB Comment: Performed at [facility] Laboratory Services - [facility] Blood [place] [address] Toll Free: [phone] CLIA No. [id number] Specimen Performing Organization Address [facility]/Zipcode Phone Number BLD LAB Type and Screen - ONCE Routine (12/19/2019 3:20 PM CIVIL GEOTECHNICAL ENGINEER) Pathologist Sig nature ABO & RH A POSITIVE LAB Comment: Performed at [facility] Laboratory Services - [facility] Blood [place] [address] Toll Free: [phone] CLIA No. [id number] IAT Negative LAB Comment: Performed at [facility] Laboratory Services - [facility] Blood [place] [address] Toll Free: [phone] CLIA No. [id number] Specimen Blood - VENOUS Performing Organization Address City/State/Zipcode Phone Number BLD LAB PROFILE / HEMOGRAM (12/19/2019 1:24 PM CIVIL GEOTECHNICAL ENGINEER) Pathologist Sig nature WBC 6.54 4.20 - 10.70 [facility] 10*3/L SERVICES RBC 3.54 (L) 4.26 - 5.52 [facility] 10*6/L SERVICES HGB 11.4 (L) 12.2 - 16.4 g/dL [facility] SERVICES HCT 33.6 (L) 38.4 - 49.3 % [facility] SERVICES MCH 32.2 26.1 - 32.[address] [facility] SERVICES MCV 94.9 81.7 - 95.[address] [facility] SERVICES MCHC 33.9 31.2 - 35.0 g/dL [facility] SERVICES PLT 209 150 - 328 10*3/L [facility] MPV 9.5 (L) 9.8 - 13.[address] [facility] SERVICES RDW-CV 14.5 12.1 - 15.4 % [facility] RDW-SD 50.4 38.5 - 51.[address] [facility] SERVICES NRBC x10^3 <0.01 10*3/L [facility] NRBC/100 WBC 0.0 0.0 - 10.0 /100 [facility] WBCs SERVICES IPF % [facility] Specimen Blood - ARM, RIGHT Performing Organization Address City/[facility]/Zipcode Phone Number [facility] CLIA: [id number], [address] [place], [place] [address] [facility] GALV/CLC ONLY - URINE DRUG (IMMUNOASSAY) - 4 ER PANEL (12/19/2019 1:12 PM CIVIL GEOTECHNICAL ENGINEER) AMPHET Negative Negative [facility] Cocaine Metabolite Negative Negative [facility] SERVICES OPIATES Presumptive Negative [facility] Positive (A) SERVICES THC Negative Negative [facility] SERVICES Specimen Urine - URINE, CLEAN CATCH Narrative Performed At Urine Drug Cutoff Ranges [facility] Amphetamine: 1,000 ng/mL Cocaine: 150 ng/mL Opiates: 300 ng/mL Cannabinoids: 50 ng/mL The results are to be used only for medical (i.e., treatment) purposes. Unconfirmed screening results mus t not be used for non-medical purposes (e.g., employment mckenna ting, legal testing). Performing Organization Address [facility]ode Phone Number [facility] CLIA: [id number], [address] [place] [phone] [facility] PROFILE / HEMOGRAM (12/19/2019 5:10 AM CIVIL GEOTECHNICAL ENGINEER) Pathologist Sig nature WBC 9.41 4.20 - 10.70 [facility] 10*3/L SERVICES RBC 3.54 (L) 4.26 - 5.52 [facility] 10*6/L SERVICES HGB 11.6 (L) 12.2 - 16.4 g/dL [facility] HCT 33.9 (L) 38.4 - 49.3 % [facility] MCH 32.8 (H) 26.1 - 32.[address] [facility] SERVICES MCV 95.8 (H) 81.7 - 95.[address] [facility] SERVICES MCHC 34.2 31.2 - 35.0 g/dL [facility] SERVICES PLT 230 150 - 328 10*3/L [facility] SERVICES MPV 9.6 (L) 9.8 - 13.[address] [facility] RDW-CV 14.5 12.1 - 15.4 % [facility] RDW-SD 50.6 38.5 - 51.[address] [facility] SERVICES NRBC x10^3 <0.01 10*3/L [facility] NRBC/100 WBC 0.0 0.0 - 10.0 /100 [facility] WBCs SERVICES IPF % [facility] SERVICES Specimen Blood - ARM, RIGHT Performing Organization Address [facility] Mex[facility]ode Phone Number [facility] CLIA: [id number], [address] [place] [phone] [facility] HEPATIC FUNCTION PANEL ([id number]) (ALB,T.PRO,BILI T,BU/BC,ALT,AST,ALK PHOS) (12/19/2019 5:09 AM CIVIL GEOTECHNICAL ENGINEER) Pathologist Sig nature TOTAL BILI 0.5 0.1 - 1.1 mg/dL [facility] SERVICES BILI UNCON 0.3 0.1 - 1.1 mg/dL [facility] SERVICES BILI CONJ 0.0 0.0 - 0.3 mg/dL [facility] SERVICES T PROTEIN 6.9 6.3 - 8.2 g/dL [facility] SERVICES ALBUMIN 3.9 3.5 - 5.0 g/dL [facility] ALK PHOS 71 34 - 122 U/L [facility] ALTv 131 (H) 5 - 50 U/L [facility] AST(SGOT) 87 (H) 13 - 40 U/L [facility] Specimen Blood - ARM, RIGHT Performing Organization Address [facility] Phone Number [facility] CLIA: [id number], [address] [place] [address] 77 555 [facility] PROTHROMBIN TIME / INR (12/19/2019 5:09 AM CIVIL GEOTECHNICAL ENGINEER) PROTIME PATIENT 11.8 10.1 - 12.6 [facility] Seconds SERVICES INR 1.0Comment: Normal [facility] INR <1.1; Warfarin SERVICES Therapeutic range 2.0 to 3.0 or 2.5 to 3.5, depending upon the indications. Specimen Blood - ARM, RIGHT Performing Organization Address [facility] Phone Number [facility] CLIA: [id number], [address] [place] [address] 555 [facility] FIBRINOGEN (12/19/2019 5:09 AM CIVIL GEOTECHNICAL ENGINEER) Pathologist Sig nature Fibrinogen 208 167 - 453 mg/dL [facility] Specimen Blood - ARM, RIGHT Performing Organization Address [facility] [place] Phone Number [facility] CLIA: [id number], [address] [place] [address] 77 555 [facility] BASIC METABOLIC PANEL (NA, K, CL, CO2, GLUCOSE, BUN, CREATININE, CA) (12/19/2019 5:09 AM CIVIL GEOTECHNICAL ENGINEER) NA 135 135 - 145 [facility] mmol/L SERVICES K 3.7Comment: 3.5 - 5.0 [facility] Slight hemolysis mmol/L SERVICES CL 106 98 - 108 [facility] mmol/L SERVICES CO2 TOTAL 20 (L) 23 - 31 [facility] mmol/L SERVICES AGAP 9 2 - 16 [facility] BUN 14Comment: Slight 7 - 23 mg/dL [facility] hemolysis SERVICES GLUCOSE 92 70 - 110 [facility] mg/dL SERVICES CREATININE 1.12 0.60 - 1.25 [facility] mg/dL SERVICES CALCIUM 8.5 (L) 8.6 - 10.6 [facility] mg/dL SERVICES eGFR Calculation 78.6 mL/min/1.73m2 [facility] (Non- SERVICES Nepalese) eGFR Calculation 95.3 mL/min/1.73m2 [facility] () SERVICES Specimen Blood - ARM, RIGHT Narrative Performed At Association of Glomerular Filtration Rate (GFR) and St aging [facility] of Kidney Disease* + + +------- ------ + | GFR (mL/min/1.73 m2) | With Kidney Damage | Wi thout Kidney Damage + + +------- ------ + | >90 | Stage one | Normal + + +------- ------ + | 60-89 | Stage two | Decreased GFR + + +------- ------ + | 30-59 | Stage three | Stage three + + +------- ------ + | 15-29 | Stage four | Stage four + + +------- ------ + | <15 (or dialysis) | Stage five | Stage five + + +------- ------ + *Each stage assumes the associated GFR level has been in effect for at least three months. Stages 1 to 5, wit h or without kidney disease, indicate chronic kidney disease. Notes: Determination of stages one and two (with eGFR >59mL/min/1.73 m2) requires estimation of kidney damag e for at least three months as defined by structural or func tional abnormalities of the kidney, manifested by either: Pathological abnormalities or Markers of kidney damage (including abnormalities in the composition of the blo od or urine or abnormalities in imaging tests) . Performing Organization Address City/State/Zipcode Phone Number [facility] CLIA: [id number], [address] [place] [address] 555 [facility] XR CHEST 1 VW (12/18/2019 8:58 PM CIVIL GEOTECHNICAL ENGINEER) Specimen Impressions Performed At PACS/VR/DOSE Right middle lobe subsegmental atelectas is Preliminary Report Dictated by Resident: Gabe Garsia I, Malvin Laura MD., have reviewed this study and agree with the above report. Narrative Performed At XR CHEST 1 VW PACS/VR/DOSE HISTORY: cough COMPARISON: CT dated 12/18/2019 FINDINGS: Right middle lobe subsegmental atelectas is is noted. No consolidation is seen.. The costophrenic angles are clear . The heart is normal in size. No pneumothorax is found. Procedure Note Ut, Radiant Results Inft User - 2019 9:51 PM CIVIL GEOTECHNICAL ENGINEER XR CHEST 1 VW HISTORY: cough COMPARISON: CT dated 12/18/2019 FINDINGS: Right middle lobe subsegmental atelectas is is noted. No consolidation is seen.. The costophrenic angles are clear . The heart is normal in size. No pneumothorax is found. IMPRESSION Right middle lobe subsegmental atelectas is Preliminary Report Dictated by Resident: Gabe Garsia I, Malvin Laura MD., have r eviewed this study and agree with the above report. Performing Organization Address [facility] Phone Number PACS/VR/DOSE Urinalysis (12/18/2019 8:42 PM CIVIL GEOTECHNICAL ENGINEER) Pathologist Sig nature APPEARANCE Clear Clear [facility] COLOR Yellow Yellow [facility] PH 5.0 4.8 - 8.0 [facility] SP GRAVITY 1.033 (H) 1.003 - 1.030 [facility] GLU U QUAL Normal Normal [facility] BLOOD Negative Negative [facility] KETONES Negative Negative [facility] PROTEIN 100 mg/dL (A) Negative [facility] UROBILIN Normal Normal [facility] BILIRUBIN Negative Negative [facility] NITRITE Negative Negative [facility] LEUK PRADEEP Negative Negative [facility] RBC/HPF 3 0 - [address] [facility] WBC/HPF 1 0 - [address] [facility] BACTERIA Negative Negative [facility] MUCOUS Slight (A) Negative LPF [facility] Specimen Urine - URINE, CLEAN CATCH Performing Organization Address [facility] Phone Number [facility] CLIA: [id number], [address] [place] [address] Urine Culture (12/18/2019 8:42 PM CIVIL GEOTECHNICAL ENGINEER) Pathologist Sig nature URINE CULTURE No aerobic growth [facility] (< 1000 CFU/mL) SERVICES Specimen Urine - URINE, CLEAN CATCH Performing Organization Address [facility] Phone Number [facility] CLIA: [id number], [address] [place], [place] [address] [address] [facility] [address] ABDOMEN PELVIS W CONTRAST (12/18/2019 8:34 PM CIVIL GEOTECHNICAL ENGINEER) Specimen Impressions Performed At PACS/VR/DOSE No hernia identified. Postsurgical hepatectomy changes. Right-sided nephrectomy. Cholecystectomy. Preliminary Report Dictated by Resident: Gabe Garsia I, Malvin Laura MD., have reviewed this study and agree with the above report. Narrative Performed At EXAM: CT ABDOMEN AND PELVIS WITH CONTRAS T PACS/VR/DOSE HISTORY: Hernia, complicated Abd pain, a cute, generalized COMPARISON: CT dated 05/04/2016 DOSE: Up-to-date CT equipment and radiation dose reduc tion techniques were employed. DLP: 388 mGy-cm TECHNIQUE AND FINDINGS: Contiguous axial imaging from the level of the lung bases through the pubic symphysis was pe rformed after the uncomplicated administration of intravenous Omnipaque contrast. Coronal and sagittal reconstructions were obtained. FINDINGS: LOWER THORAX: The lungs bases are clear. No cardiomegaly. LIVER: Hepatectomy changes are redemonstrated.. Mild i ntrahepatic biliary ductal dilation, likely reservoir phenom kahlil. GALLBLADDER AND BILIARY TREE: The gallbladder is absen t and the common bile duct is mildly prominent, likely due to reservoir phenomena.. SPLEEN: No splenomegaly. PANCREAS: No ductal dilation or masses. ADRENAL GLANDS: No adrenal nodules. KIDNEYS: Right sided nephrectomy. No hydronephrosis, s tones, or masses on the left. A cyst in the inferior pole of the left kidney is too small to characterize, similar to prior imaging. PERITONEUM AND RETROPERITONEUM: No free air or fluid. LYMPH NODES: No lymphadenopathy. GI TRACT: No dilation or wall thickening . The appendix is normal. PELVIS/BLADDER: The bladder is normal.. VESSELS: Unremarkable. BONES AND SOFT TISSUES: Right abdominal wall scarring is noted. No suspicious lytic or sclerotic bony lesio ns. Procedure Note [facility], Radiant Results Inft User - 2019 9:58 PM CIVIL GEOTECHNICAL ENGINEER EXAM: CT ABDOMEN AND PELVIS WITH CONTRAST HISTORY: Hernia, complicated Abd pain, a cute, generalized COMPARISON: CT dated 05/04/2016 DOSE: Up-to-date CT equipment and radiat ion dose reduction techniques were employed. DLP: 388 mGy-cm TECHNIQUE AND FINDINGS: Contiguous axial imaging from the level of the lung bases through the pubic symphysis was pe rformed after the uncomplicated administration of intravenous Omnipaque contrast. Coronal and sagittal reconstructions were obtained. FINDINGS: LOWER THORAX: The lungs bases are clear. No cardiomegaly. LIVER: Hepatectomy changes are redemonst rated.. Mild intrahepatic biliary ductal dilation, likely reservoir phenom kahlil. GALLBLADDER AND BILIARY TREE: The gallbl adder is absent and the common bile duct is mildly prominent, likely due to reservoir phenomena.. SPLEEN: No splenomegaly. PANCREAS: No ductal dilation or masses. ADRENAL GLANDS: No adrenal nodules. KIDNEYS: Right sided nephrectomy. No hyd ronephrosis, stones, or masses on the left. A cyst in the inferior pole of the left kidney is too small to characterize, similar to prior imaging. PERITONEUM AND RETROPERITONEUM: No free air or fluid. LYMPH NODES: No lymphadenopathy. GI TRACT: No dilation or wall thickening . The appendix is normal. PELVIS/BLADDER: The bladder is normal.. VESSELS: Unremarkable. BONES AND SOFT TISSUES: Right abdominal wall scarring is noted. No suspicious lytic or sclerotic bony lesio ns. IMPRESSION No hernia identified. Postsurgical hepatectomy changes. Right-sided nephrectomy. Cholecystectomy. Preliminary Report Dictated by Resident: Gabe Garsia I, Malvin Laura MD., have r eviewed this study and agree with the above report. Performing Organization Address City/State/Zipcode Phone Number PACS/VR/DOSE CBC WITH DIFFERENTIAL (12/18/2019 7:41 PM CIVIL GEOTECHNICAL ENGINEER) Pathologist Sig nature WBC 15.68 (H) 4.20 - 10.70 [facility] 10*3/L [facility] RBC 4.42 4.26 - 5.52 [facility] 10*6/L [facility] HGB 14.6 12.2 - 16.4 [facility] g/dL [facility] HCT 41.5 38.4 - 49.3 % [facility] MCV 93.9 81.7 - 95.[address] [facility] MCH 33.0 (H) 26.1 - 32.[address] [facility] MCHC 35.2 (H) 31.2 - 35.0 [facility] g/dL [facility] RDW-SD 47.3 38.5 - 51.[address] [facility] RDW-CV 13.8 12.1 - 15.4 % [facility] PLT 351 (H) 150 - 328 [facility] 10*3/L [facility] MPV 9.4 (L) 9.8 - 13.[address] [facility] NRBC/100 WBC 0.0 0.0 - 10.0 /100 [facility] WBCs [facility] NRBC x10^3 <0.01 10*3/L [facility] GRAN MAT (NEUT) % 73.0 % [facility] IMM GRAN % 1.30 % [facility] LYMPH % 17.4 % [facility] MONO % 7.3 % [facility] EOS % 0.6 % [facility] BASO % 0.4 % [facility] GRAN MAT x10^3(ANC) 11.42 (H) 1.99 - 6.95 [facility] 10*3/uL [facility] IMM GRAN x10^3 0.21 (H) 0.00 - 0.06 [facility] 10*3/uL [facility] LYMPH x10^3 2.73 1.09 - 3.23 [facility] 10*3/uL [facility] MONO x10^3 1.15 (H) 0.36 - 1.02 [facility] 10*3/uL [facility] EOS x10^3 0.10 0.06 - 0.53 [facility] 10*3/uL [facility] BASO x10^3 0.07 0.01 - 0.[address]3/uL [facility] Specimen Blood - VENOUS Performing Organization Address City/State/Zipcode Phone Number [facility] CLIA: [id number], [address] [place], [place] [address] Prothrombin Time (PT) / INR (12/18/2019 7:41 PM CIVIL GEOTECHNICAL ENGINEER) PROTIME PATIENT 12.5 12.0 - 14.7 [facility] LABORATORY INR 1.0Comment: Normal [facility] INR <1.1; Warfarin [facility] Therapeutic range LABORATORY 2.0 to 3.0 or 2.5 to 3.5, depending upon the indications. Specimen Blood - VENOUS Performing Organization Address [facility] Phone Number [facility] CLIA: [id number], [address] [place] [place] [address] aPTT (12/18/2019 7:41 PM CIVIL GEOTECHNICAL ENGINEER) Pathologist Sig [facility] APTT Patient 24 23 - [address] [facility] Specimen Blood - VENOUS Narrative Performed At The [facility] patient population mean normal value [facility] for aPTT is 30 seconds. Performing Organization Address [facility] Phone Number [facility] CLIA: [id number], [address] Lipase Serum (12/18/2019 7:41 PM CIVIL GEOTECHNICAL ENGINEER) [facility] LIPASE 212 0 - 220 U/L [facility]ORY Specimen Blood - VENOUS Performing Organization Address [facility] [place] Phone Number [facility] CLIA: [id number], [address] Hepatic Function Panel (ALB, T.PRO, BILI T, BU/BC, ALT, AST, ALK PHOS) (12/18/2019 7:41 PM CIVIL GEOTECHNICAL ENGINEER) [facility] TOTAL BILI 0.6 0.1 - 1.1 mg/dL [facility] BILI UNCON 0.4 0.1 - 1.1 mg/dL [facility] BILI CONJ 0.0 0.0 - 0.3 mg/dL [facility] T PROTEIN 9.1 (H) 6.3 - 8.2 g/dL [facility] ALBUMIN 5.2 (H) 3.5 - 5.0 g/dL [facility] ALK PHOS 91 34 - 122 U/L [facility] ALTv 144 (H) 5 - 50 U/L [facility] AST(SGOT) 55 (H) 13 - 40 U/L [facility] Specimen Blood - VENOUS Performing Organization Address City/[facility] Phone Number [facility] CLIA: [id number], [address] [place] Basic Metabolic Panel (NA, K, CL, CO2, GLUCOSE, BUN, CREATININE, CA) (12/18/2019 7:41 PM CIVIL GEOTECHNICAL ENGINEER) [facility] NA 140 135 - 145 [facility] mmol/L [facility] K 4.2 3.5 - 5.0 [facility] mmol/L [facility] CL 104 98 - 108 mmol/L [facility] CO2 TOTAL 18 (L) 23 - 31 mmol/L [facility] AGAP 18 (H) 2 - 16 [facility] BUN 16 7 - 23 mg/dL [facility] GLUCOSE 104 70 - 110 mg/dL [facility] CREATININE 1.15 0.60 - 1.25 [facility] mg/dL [facility] CALCIUM 9.8 8.6 - 10.6 [facility] mg/dL [facility] eGFR Calculation 76.3 mL/min/1.73m2 [facility] (Non-) [facility] LABORATOR Y eGFR Calculation 92.5 mL/min/1.73m2 [facility] () [facility] LABORATORY Specimen Blood - VENOUS Narrative Performed At Association of Glomerular Filtration Rate (GFR) [facility] and Staging of Kidney Disease* + + +- + | GFR (mL/min/1.73 m2) | With Kidney Damage | Without Kidney Damage + + +- + | >90 | Stage one | Normal + + +- + | 60-89 | Stage two | Decreased GFR + + +- + | 30-59 | Stage three | Stage three + + +- + | 15-29 | Stage four | Stage four + + +- + | <15 (or dialysis) | Stage five | Stage five + + +- + *Each stage assumes the associated GFR level has been in effect for at least three months. Stages 1 to 5, with or without kidney disease, indicate chronic kidney disease. Notes: Determination of stages one and two (with eGFR >59mL/min/1.73 m2) requires estimation of kidney damage for at least three months as defined by structural or functional abnormalities of the kidney, manifested by either: Pathological abnormalities or Markers of kidney damage (including abnormalities in the composition of the blood or urine or abnormalities in imaging tests). Performing Organization Address City/State/Zipcode Phone Number [facility] CLIA: [id number], [address] [place], [place] [address] documented in this encounter Visit Diagnoses Diagnosis Hematemesis with nausea - Primary Abdominal pain in male Hematemesis without nausea Acute gastritis without hemorrhage, unsp ecified gastritis type Hematemesis documented in this encounter Administered Medications Medication Order MAR Action Action Date Dose Rate Site ALPRAZolam (XANAX) tablet 2 mg Given 12/20/2019 1:32 PM CDT 2 mg 2 mg, Oral, TIDPRN, Starting 12/19/19 at 0050, Until Discontinued, Routine, anxiety Given 12/20/2019 1:22 AM CIVIL GEOTECHNICAL ENGINEER 2 mg Given 12/19/2019 5:33 PM CIVIL GEOTECHNICAL ENGINEER 2 mg carisoprodoL (SOMA) tablet 350 mg Given 12/20/2019 10:58 AM CDT 350 mg 350 mg, Oral, BIDPRN, Starting 12/19/19 at 0043, Until Discontinued, Routine, Pain (scale 4-6) Given 12/19/2019 7:02 PM CIVIL GEOTECHNICAL ENGINEER 350 mg Given 12/19/2019 10:49 AM CIVIL GEOTECHNICAL ENGINEER 350 mg HYDROcodone-acetaminophen (NORCO) 10-325 Given 12/20/2019 4 :58 PM CDT 1 tablet mg tablet 1 tablet 1 tablet, Oral, Q6HPRN, Starting 12/19/19 at 0903, Until Discontinued, Routine, Pain (scale 7-10) Given 12/20/2019 1:27 PM CDT 1 tablet Given 12/20/2019 8:11 AM CDT 1 tablet maalox:diphenhydrAMINE:lidocaine 2 % viscous 1:1:1 (FI RST-MOUTHWASH BLM) oral suspension 15 mL 15 mL, Oral (Swish & Swallow), QDAILYPRN, Starting 12/20/19 at 1148, Until Discontinued, Routine, Oral mucositis ondansetron (ZOFRAN (PF)) injection 4 mg 4 mg, Slow IV Push, Q6HPRN, Starting 12/19/19 at 005 0, Until Discontinued, Routine, Nausea and Vomiting (N/V) pantoprazole (PROTONIX) EC tablet 40 mg Given 12/20/2019 8:11 AM CDT 40 mg 40 mg, Oral, BID, First dose on 12/19/19 at 2000, Until Discontinued, Routine Given 12/19/2019 7:02 PM CIVIL GEOTECHNICAL ENGINEER 40 mg Medication Order MAR Action Action Date Dose Rate Site dicyclomine (BENTYL) injection Given 12/18/2019 8:58 PM CIVIL GEOTECHNICAL ENGINEER 20 mg Left Arm 20 mg 20 mg, Intramuscular, ONCE, 1 dose, 12/18/19 at 2200, Routine iohexol (OMNIPAQUE 350 BULK-150 mL) Given 12/18/2019 8:45 PM CS T 120 mL injection 120 mL 120 mL, Intravenous, ONCE, 1 dose, 12/18/19 at 2045, Routine ketorolac (TORADOL) injection 30 mg Given 12/18/2019 8:59 PM CIVIL GEOTECHNICAL ENGINEER 30 mg 30 mg, Slow IV Push, ONCE, 1 dose, 12/18/19 at 2200, Routine, hawk missile system crewmember approving Restricted medication: CARRIE YADAV LORazepam (ATIVAN) injection 1 mg Given 12/18/2019 7:45 PM CIVIL GEOTECHNICAL ENGINEER 1 mg 1 mg, Slow IV Push, ONCE, 1 dose, 12/18/19 at 2045, STAT maalox:diphenhydrAMINE:lidocaine 2 % viscous Given 03/2020 8:10 PM CIVIL GEOTECHNICAL ENGINEER 15 mL 1:1:1 (FIRST-MOUTHWASH BLM) oral suspension 15 mL 15 mL, Oral, ONCE, 1 dose, 12/18/19 at 2000, RASHAD metoclopramide HCl (REGLAN) 10 mg in NaCl Given 12/19/2019 2:27 PM CIVIL GEOTECHNICAL ENGINEER 10 mg 0.9% (NS) piggyback 10 mg, IV Piggyback, ONCE, 1 dose, 12/19/19 at 1230, 50 mL morpHINE injection 4 mg Given 12/18/2019 8:03 PM CIVIL GEOTECHNICAL ENGINEER 4 mg 4 mg, Slow IV Push, ONCE, 1 dose, 12/18/19 at 2100, STAT morpHINE injection 4 mg Given 12/18/2019 8:59 PM CIVIL GEOTECHNICAL ENGINEER 4 mg 4 mg, Slow IV Push, ONCE, 1 dose, 12/18/19 at 2200, STAT NaCl 0.9% (NS) bolus infusion New Bag 12/18/2019 7:42 PM CIVIL GEOTECHNICAL ENGINEER 1,000 mL 999 mL/hr 1,000 mL at 999 mL/hr, 1,000 mL, IV Infusion, ONCE, 1 dose, 12/18/19 at 1945, RASHAD NaCl 0.9% (NS) IV infusion 1,000 New Bag 12/19/2019 9:[address] 1,000 mL 150 mL/hr mL at 150 mL/hr, IV Infusion, CONTINUOUS, Starting 12/19/19 at 0200, Until 12/19/19 at 1721, Routine New Bag 12/19/2019 1:57 AM CIVIL GEOTECHNICAL ENGINEER 1,000 mL 150 mL/hr ondansetron (ZOFRAN (PF)) injection 4 mg Given 12/18/2019 8:04 PM CIVIL GEOTECHNICAL ENGINEER 4 mg 4 mg, Slow IV Push, ONCE, 1 dose, Sat12/18/19 at 2100, RASHAD pantoprazole (PROTONIX) 80 mg in NaCl 0.9% Given 12/18/2019 8:0 4 PM CIVIL GEOTECHNICAL ENGINEER 80 mg (NS) 20 mL syringe 80 mg, IV Push, ONCE, 1 dose, Sat12/18/19 at 2100, 20 mL pantoprazole (PROTONIX) 80 mg in New Bag 12/19/2019 10:[address] 8 mg/hr 50 mL/hr NaCl 0.9% (NS) 500 mL infusion 8 mg/hr (50 mL/hr), IV Piggyback, CONTINUOUS, Starting 12/18/19 at 2100, Until 12/19/19 at 1721, 500 mL New Bag 12/18/2019 8:05 PM CIVIL GEOTECHNICAL ENGINEER 8 mg/hr 50 mL/hr traMADol (ULTRAM) tablet 50 mg Given 12/19/2019 1:31 AM CIVIL GEOTECHNICAL ENGINEER 50 mg 50 mg, Oral, Q8HPRN, Starting 12/19/19 at 0058, Until 12/19/19 at 0904, Routine, Pain (scale 7-10) documented in this encounter
--- OUTSIDE RECORDS SUMMARY | 2020-01-20 23:08 | XMS REPORT | Summary of Care ---
:1990 Author Organization [facility] Address [address] [place] [address] Care Team Providers Name Role Phone MD Dg Primary Care Provider Reason for Visit Reason Comments Refill Request Encounter Details Date Type Department Care Team Description 12/23/2019 Refill [facility] Thomas Siegel MD Refill Request - [address] [address] [place] [address] [phone] Allergies No Known Allergiesdocumented as of this [...] Added automatically from request for rona betsy [id number] Hematemesis without nausea 12/18/2019 Overview: Added automatically from request for rona betsy [id number] Attention deficit disorder (ADD) without hyperactivity 07/29/2017 [...] Office Visit Family Medicine Thomas Conte MD [address] [place] [address] [phone] Health Maintenance Due Date Last Done [...] Plan / Subscriber ID Effective Phone Address [facility] Dates BEACON BEACON [id number] 2016-Pre [phone] [facility] sent [phone] [facility] - [facility] , [address] [place] [id number] documented as of this encounter
--- OUTSIDE RECORDS SUMMARY | 2020-01-20 23:09 | XMS REPORT | Summary of Care ---
:1990 Author Organization [facility] Address [address] [place] [address] Care Team Providers Name Role Phone MD Dg Primary Care Provider Reason for Visit Reason Comments Refill Request Encounter Details Date Type Department Care Team Description 12/28/2019 Telephone [facility] Family Med Conte MD Refill Request Medicine - [address] [address] [place] [address] [phone] Allergies No Known Allergiesdocumented as of this encounter (statuses as of 12/31/2019) Medications Medication Sig Dispensed Refills Start Date End Date Status maalox:diphenhydrA Swish and 30 Bottle 0 12/20/2019 01/20/20 Active MINE:lidocaine 2 % swallow 15 mL 20 viscous once daily as 1:1:1Indications: needed for Hematemesis with Oral mucositis nausea, for up to 31 Hematemesis days. without nausea pantoprazole 40 mg Take 1 tablet 58 tablet 0 12/20/2019 Active EC by mouth 2 20 tabletIndications: (two) times Hematemesis with daily for [...] (three) times daily as needed for Sleep. HYDROcodone-acetam Take 1 tablet 150 tablet 0 12/31/2019 Active inophen 10-325 mg by mouth every tabletIndications: 4 (four) hours Chronic pain due as needed for to trauma Pain (scale 4-6). dextroamphetamine- Take 1 tablet 60 tablet 0 12/02/2019 Discontinued amphetamine by mouth 2 20 (Reorde r) (ADDERALL) 20 mg (two) times tabletIndications: daily. Attention deficit disorder (ADD) without hyperactivity ALPRAZolam 2 mg Take 1 tablet 90 tablet 1 12/02/2019 12/30/19 Discontinued tabletIndications: by mouth 3 20 (Reorder) Anxiety (three) times daily as needed for Sleep. carisoprodoL 350 Take 1 tablet 60 tablet 1 12/02/2019 12/30/19 Discontinued mg by mouth 2 20 (Reorder) tabletIndications: (two) times Chronic pain due daily as to trauma needed for Pain (scale 4-6). documented as of this encounter (statuses as of 12/31/2019) Active Problems Problem Noted Date Hematemesis 12/19/2019 Hematemesis with nausea 12/18/2019 Overview: Added automatically from request for rona betsy [id number] Hematemesis without nausea 12/18/2019 Overview: Added automatically from request for rona betsy [id number] Attention deficit disorder (ADD) without hyperactivity 07/29/2017 [...] Office Visit Family Medicine Thomas Conte MD [facility] [place] [phone] Health Maintenance Due Date Last Done [...] Address T e Group Dates [facility] [id number] 2016-Pre [phone] [facility] sent [phone] [facility] , [address] [place] [address] documented as of this encounter
--- OUTSIDE RECORDS SUMMARY | 2020-01-20 23:09 | XMS REPORT | Summary of Care ---
:1990 Author Organization [facility] Address [address] [place] [id number] Care Team Providers Name Role Phone MD Dg Primary Care Provider Reason for Visit Reason Comments Rx Concern/Question Encounter Details Date Type Department Care Team Description 12/30/2019 Telephone [facility] Family Med Conte MD Rx Concern/Question Medicine - [address] [phone] Allergies No Known Allergiesdocumented as of this encounter (statuses as of 12/31/2019) Medications Medication Sig Dispensed Refills Start Date End Date Status maalox:diphenhydrAMIN Swish and swallow 30 Bottle 0 [...] without nausea tablet daily for 30 days. dextroamphetamine-amp Take 1 tablet by 60 tablet 0 12/30/2019 Active hetamine (ADDERALL) mouth 2 (two) 20 mg times daily. tabletIndications: Attention deficit disorder (ADD) without hyperactivity carisoprodoL 350 mg Take 1 tablet by 60 tablet 1 12/30/2019 Active tabletIndications: mouth 2 (two) Chronic pain due to times daily as trauma needed for Pain (scale 4-6). ALPRAZolam 2 mg Take 1 tablet by 90 tablet 1 12/30/2019 Active tabletIndications: mouth 3 (three) Anxiety times daily as needed for Sleep. documented as of this encounter (statuses as of 12/31/2019) Active Problems Problem Noted Date Hematemesis 12/19/2019 Hematemesis with nausea 12/18/2019 Overview: Added automatically from request for rona betsy [id number] Hematemesis without nausea 12/18/2019 Overview: Added automatically from request for rona betsy [id number] Attention deficit disorder (ADD) without hyperactivity 07/29/2017 [...] Office Visit Family Medicine Thomas Conte MD [address] [place] [address] [phone] Health Maintenance Due Date Last Done Comments VARICELLA VACCINES (1 of 2 - 2-dose childhood series) 1993 PNEUMOCOCCAL 0-64 YEARS COMBINED SERIES (1 of 1 - 1998 PPSV23) DTaP,Tdap,and Td Vaccines (1 - Tdap) 2003 INFLUENZA VACCINE (#1) 2019 documented as of this encounter Results Not on filedocumented in this encounter Visit Diagnoses Diagnosis Chronic pain due to trauma documented in this encounter Insurance Payer Benefit Plan / Subscriber ID Effective Phone Address [facility] Dates BEACON BEACON [id number] 2016-Pre [phone] [facility] sent [phone] [facility] , [address] [place], [place] [address] documented as of this encounter
[2020-01-20] MEDS ORDERED: MORPHINE 4 MG/ML SYR ONE (23:17)
[2020-01-20] MEDS ORDERED: ONDANSETRON 4 MG/2 ML VIAL ONE (23:17)
[2020-01-20 23:31] LABS: Absolute Lymphocytes (CBC) 3.2 K/uL (0.7-4.9); Basophils % 0.9 % (0-1.3); Hematocrit 41.2 % (39.6-49.0); Lymphocytes % 27.9 % (15.3-44.8); MPV 8.1 fL (7.6-11.3); RBC Red Blood Cell Count 4.14 M/uL (4.33-5.43)
[2020-01-20 23:46] LABS: ALT/SGPT 80 U/L (12-78); AST/SGOT 53 U/L (15-37); Albumin 4.4 g/dL (3.4-5.0); Alkaline Phosphatase 89 U/L (45-117); BUN Blood Urea Nitrogen 21 mg/dL (7-18); Bicarbonate 19 mmol/L (21-32); Bilirubin Direct < 0.1 mg/dL (0-0.2); Bilirubin Total 0.2 mg/dL (0.2-1.0); Glucose Level 100 mg/dL (74-106); Lipase 114 U/L (73-393); Potassium 3.3 mmol/L (3.5-5.1); Protein, Total 8.1 g/dL (6.4-8.2); Sodium Level 139 mmol/L (136-145)
[2020-01-21] MEDS ORDERED: LIDOCAINE 1% MPF 5 ML VIAL ONE (00:24)
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
[2020-01-21] MEDS ORDERED: ONDANSETRON 4 MG/2 ML VIAL IV PRN (02:59)
[2020-01-21] MEDS ORDERED: D5.45NS W/KCL 20MEQ 1,000 ML IV SCH (03:00)
[2020-01-21] MEDS: MORPHINE 2 MG/ML SYR IV PRN ×2 (03:43→11:44)
[2020-01-21 04:05] LABS: Barbiturates NEGATIVE (NEGATIVE); Benzodiazepines POSITIVE (NEGATIVE); Cocaine NEGATIVE (NEGATIVE); METHAMPHETAM POSITIVE (NEGATIVE); Methadone NEGATIVE (NEGATIVE); Opiates POSITIVE (NEGATIVE); Phencyclidine NEGATIVE (NEGATIVE); THC Cannibis NEGATIVE (NEGATIVE)
[2020-01-21 04:31] VITALS: BMI 26.5
--- NOTE | 2020-01-21 07:43 | RAD REPORT ---
EXAM DESCRIPTION: RAD - Femur Right - 01/21/2020 12:02 am CLINICAL HISTORY: Leg pain FINDINGS: No fracture is seen.
[2020-01-21 08:37] VITALS: O2SAT 100
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
[2020-01-21 13:58] VITALS: BP 127/72; TEMP 97.9
[2020-01-21] MEDS ORDERED: ALPRAZOLAM 1 MG TABLET PO PRN (14:33)
[2020-01-21] MEDS ORDERED: ALPRAZOLAM PO PRN (15:32)
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
[2020-01-21] MEDS ORDERED: LORAZEPAM 1 MG TABLET PO SCH (21:00)
== END 2020-01-21 16:29 | disposition home or self-care (01) | DRG 605 ==
LOC: ER 22:55 → ERHOLD 01-21 02:12 → OBSVTOIN 01-21 02:12 → 2ND 01-21 02:36
PROVIDERS: ADMIT Surgery; ATTEND Surgery
PROC: 0HQ2XZZ Repair Right Ear Skin, External Approach (ICD-10-PCS; principal; 2020-01-21)
DX: S01.81XA Laceration without foreign body of other part of head, initial encounter (principal); J93.9 Pneumothorax, unspecified; F17.200 Nicotine dependence, unspecified, uncomplicated; F41.9 Anxiety disorder, unspecified; F32.9 Major depressive disorder, single episode, unspecified; G89.29 Other chronic pain; N18.3 Chronic kidney disease, stage 3 (moderate); S11.81XA Laceration without foreign body of other specified part of neck, initial encounter; V49.9XXA Car occupant (driver) (passenger) injured in unspecified traffic accident, initial encounter; Z79.899 Other long term (current) drug therapy; Z90.81 Acquired absence of spleen; Z91.5 Personal history of self-harm
CPT/HCPCS: 36415; 70450; 70498; 71045; 71260; 72125; 74177; 80048; 80076; 80307; 80320; 83690; 85025; 86850; 86900; 86901; 96374; 96375; 99285; J2270; J2405; Q9967

== ENCOUNTER 2020-03-10 20:10 | Emergency (ER) | payer SELFPAY ==
[2020-03-10] MEDS ORDERED: ACETAMINOPHEN 500 MG TAB ONE (20:38)
[2020-03-10] MEDS ORDERED: KETOROLAC 30 MG/ML INJ ONE (20:52)
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
--- OUTSIDE RECORDS SUMMARY | 2020-03-10 21:37 | XMS REPORT | Continuity of Care Document ---
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 Medical PO, Drug Center form: CAP, BID, Dosing Weight 62.727, kg, Start date: 01/01/14 12:00:00, Duration: 30 day, Stop date: 01/31/14 9:00:00NSAID. Please check indication. Not for seizure. (Same As: CeleBREX ) Acetaminophen 1 tab, Route: Inactive [place] 325 MG / PO, Drug 2013 Medical Hydrocodone Form: TAB, Center Bitartrate 10 MG Dosing Weight Oral Tablet 62.727, kg, [[place] 10/325] Q6H, Start date: 01/01/14 12:00:00, Duration: 30 day, Stop date: 01/31/14 6:00:00Do not exceed 4gm/day of acetaminophen . (Same as: [place] 325/10) Tramadol 100 mg, 2 Inactive [place] tab, Route: 2013 Medical PO, Drug Center form: TAB, Q6H, Dosing Weight 62.727, kg, PRN Pain, Start date: 01/01/14 10:50:00, Duration: 30 day, Stop date: 01/31/14 10:49:00Not to exceed 400mg/day. (Same As: Ultram) Acetaminophen 1 tab, Route: Inactive [place] 325 MG / PO, Drug 2013 Medical Hydrocodone Form: TAB, Center Bitartrate 10 MG Dosing Weight Oral Tablet 62.727, kg, [[place] 10/325] Q4H, PRN Pain, Start date: 01/01/14 10:50:00, Duration: 30 day, Stop date: 01/31/14 10:49:00Do not exceed 4gm/day of acetaminophen . (Same as: [place] 325/10) Dilaudid 0.5 mg, 0.25 Inactive [facility] mL, Route: 2013 Medical IV, Drug Center form: INJ, Q3H, Dosing Weight 62.727, kg, PRN Pain, Start date: 01/01/14 9:18:00, Stop date: 01/31/14 9:17:00Same as: Dilaudid D5NS + KCL 1,000 mL, Inactive [place] 20mEq/L 1000ml Rate: 125 2013 Medical (Premix) 1,000 ml/hr, Infuse Jama ter mL over: 8 hr, Route: IV, Dosing Weight 62.727 kg, Total Volume: 1,000, Start date: 01/01/14 9:16:00, Duration: 30 day, Stop date: 01/31/14 9:15:00 Saline Flush 5 ml, Route: [place]active [place] 0.9% IVP, Drug 2013 Medical Form: INJ, Center Dosing Weight 62.727, kg, PRN, PRN Line Flush, Start date: 01/01/14 9:16:00, Duration: 30 day, Stop date: 01/31/14 9:15:00 Enoxaparin 30 mg, 0.3 Inactive [facility] mL, Route: 2013 Medical SUB-Q, Drug Center form: INJ, [id number], Dosing Weight 62.727, kg, Start date: 01/01/14 9:00:00, Duration: 30 day, Stop date: 01/30/14 21:00:00 Ativan 1 mg, 1 tab, Inactive [facility] Route: PO, 2013 Medical Drug form: Center TAB, TID, Dosing Weight 62.727, kg, PRN Anxiety, Start date: 01/01/14 8:05:00, Duration: 30 day, Stop date: 01/31/14 8:04:00(Same as: Ativan) Colace 100 mg 100 mg, 1 Active [facility] [place] oral capsule cap, PO, BID, 2012 Medic al 30 cap, Center Substitution Allowed, CAP [place] 10/325 1 tab, PO, Active [facility] [place] oral tablet Q6H, PRN, 40 2012 Medical tab, Pain, Center Substitution Allowed, Maintenance, TAB gentamicin + 400 mg, 10 No Longer Goodenough [facility] Sodium Chloride mL, Route: Active 2012 Medic al 0.9% IV 100 mL IV, Q24H, Center Dosing Weight 56.818, kg, Start date: 08/22/13 0:00:00, Duration: 30 day, Stop date: 09/20/13 0:00:00(Same as Garamycin) vancomycin + 1.25 gm, No Longer Kaplan [facility] Sodium Chloride Route: IV, Active 2012 Medic al 0.9% IV 250 mL Q12H, Dosing Cent er Weight 56.818, kg, Start date: 08/21/13 21:00:00, Stop date: 09/20/13 21:00:00(Same As: Vancocin) Vancomycin FOR IV SET ONLY [place] 8.6 mg 8.6 mg, 1 No Longer [place] oral tablet tab, Route: Active 2012 Medical PO, Drug Center Form: TAB, Dosing Weight 56.818, kg, Bedtime, Start date: 08/20/13 21:00:00, Duration: 30 day, Stop date: 09/18/13 21:00:00(Same as: Senokot) Saline Flush 10 mL, Route: No Longer [facility]o [place] 0.9% IVP, Drug Active 2012 Medical Form: INJ, Center Dosing Weight 56.818, kg, Q8H, Start date: 08/19/13 16:00:00, Duration: 30 day, Stop date: 09/18/13 8:00:00(Same as: BD Posiflush) Saline Flush 10 mL, Route: No Longer Christiano [place] 0.9% IVP, Drug Active 2012 Medical Form: INJ, Center Dosing Weight 56.818, kg, PRN, PRN Line Flush, Start date: 08/19/13 12:12:00, Duration: 30 day, Stop date: 09/18/13 12:11:00(Same as: BD Posiflush) LR IV 1,000 mL 1,000 mL, Inactive [facility] [place] Rate: 100 2012 Medical ml/hr, Infuse Center over: 10 hr, Route: IV, Dosing Weight 56.818 kg, Total Volume: 1,000, Start date: 08/19/13 0:15:00, Duration: 30 day, Stop date: 09/18/13 0:14:00 D5W 1/2NS + KCL 1,000 mL, No Longer [place] 20mEq/L 1000ml Rate: 100 Active 2012 Medical (Premix) 1,000 ml/hr, Infuse Jama ter mL over: 10 hr, Route: IV, Dosing Weight 56.818 kg, Total Volume: 1,000, Start date: 08/19/13 0:01:00, Duration: 30 day, Stop date: 09/18/13 0:00:00PREMIX IV - Do Not Alter Dilaudid 0.2 mg, 0.1 No Longer [facility]enough [place] mL, Route: Active 2012 Medical IV, Drug Center form: INJ, ONCE, Dosing Weight 56.818, kg, Start date: 08/18/13 23:30:00, Stop date: 08/18/13 23:30:00(Same as: Dilaudid) vancomycin + 1.25 gm, No Longer Kaplan [facility] Sodium Chloride Route: IV, Active 2012 Medic al 0.9% IV 250 mL [id number], Center Dosing Weight 56.818, kg, Start date: 08/18/13 21:00:00, Duration: 30 day, Stop date: 09/17/13 9:00:00(Same As: Vancocin) Vancomycin FOR IV SET ONLY Lovenox 30 mg, 0.3 No Longer Alvarez [facility] mL, Route: Active 2012 Medical SUB-Q, Drug Center form: INJ, [id number], Dosing Weight 56.818, kg, Start date: 08/18/13 18:00:00, Duration: 30 day, Stop date: 09/17/13 8:00:00(Same as: Lovenox) lidocaine 1% 5 mL, Route: No Longer [place] INTRADERM, Active 2012 Medical Drug Form: Center INJ, Dosing Weight 56.818, kg, ONCALL, Start date: 08/18/13 17:00:00, Duration: 1 day, Stop date: 08/19/13 16:59:00(Same as: Xylocaine) D5W 1/2NS + KCL 1,000 mL, Inactive [place] 20mEq/L 1000ml Rate: 100 2012 Medical (Premix) 1,000 ml/hr, Infuse Jama ter mL over: 10 hr, Route: IV, Dosing Weight 56.818 kg, Total Volume: 1,000, Start date: 08/18/13 0:01:00, Duration: 30 day, Stop date: 09/17/13 0:00:00PREMIX IV - Do Not Alter Celebrex 200 mg, 2 No Longer Alvarez [facility] cap, Route: Active 2012 Medical PO, Drug Center form: CAP, Q12H, Dosing Weight 59.091, kg, Start date: 08/17/13 21:00:00, Duration: 30 day, Stop date: 09/16/13 9:00:00NSAID. Please check indication. Not for seizure. (Same As: Celebrex) [place] 10/325 1 tab, Route: No Longer Goodenough [place] oral tablet PO, Drug Active 2012 Medical Form: TAB, Center Dosing Weight 56.818, kg, Q6H, PRN Pain, Start date: 08/17/13 20:36:00, Duration: 30 day, Stop date: 09/16/13 20:35:00Do not exceed 4gm/day of acetaminophen . (Same as: [place] 325/10) vancomycin 1 gm, Route: No Longer [facility] [place] IVPB, Drug Active 2012 Medical form: INJ, Center [id number], Dosing Weight 59.091, kg, Start date: 08/17/13 20:00:00, Duration: 30 day, Stop date: 09/16/13 8:00:00(Same As: Vancocin) Lyrica 100 mg, 1 No Longer Alvarez [facility] cap, Route: Active 2012 Medical PO, Drug Center form: CAP, Q8H, Dosing Weight 59.091, kg, Start date: 08/17/13 16:00:00, Duration: 30 day, Stop date: 09/16/13 10:00:00(Same as: Lyrica) tramadol 100 mg, 2 No Longer Alvarez 08/17[facility] tab, Route: Active 2012 Medical PO, Drug Center form: TAB, Q6H, Dosing Weight 59.091, kg, PRN Pain, Start date: 08/17/13 10:29:00, Duration: 30 day, Stop date: 09/16/13 10:28:00Not to exceed 400mg/day. (Same As: Ultram) ketorolac 30 mg, 1 mL, Inactive [place] [facility] Route: IV, 2012 Medical Drug form: Center INJ, ONCE, Dosing Weight 59.091, kg, Start date: 08/17/13 10:27:00, Duration: 1 doses or times, Stop date: 08/17/13 10:27:00(Same as:Toradol) IV bolus must be given >15 seconds. Give IM administratio n slowly and deeply into the muscle. Not for use > 4 days morphine Sulfate 4 mg, 1 mL, Inactive [facility] Route: IVP, 2012 Medical Drug form: Center INJ, ONCE, Dosing Weight 59.091, kg, Start date: 08/17/13 6:00:00, Stop date: 08/17/13 6:00:00(Same as:MORPhine Sulfate) vancomycin 1 gm, Route: Inactive [place] IV, Drug 2012 Medical form: INJ, Center [id number], Dosing Weight 59.091, kg, Start date: 08/17/13 6:00:00, Duration: 30 day, Stop date: 09/16/13 0:00:00(Same As: Vancocin) [place] [address] 1 tab, Route: Inactive [place] oral tablet PO, Dosing 2012 Medical Weight [place] 59.091, kg, Q4H, Start date: 08/17/13 4:00:00, Duration: 30 day, Stop date: 09/16/13 0:00:00 Benadryl 25 mg, 0.5 No Longer [facility] [place] mL, Route: Active 2012 Medical IVP, Drug Center form: INJ, ONCE, Dosing Weight 59.091, kg, PRN Itching, Start date: 08/17/13 2:17:00(Same as: Benadryl) morphine Sulfate 4 mg, 1 mL, Inactive [facility] 08/17[facility] Route: IVP, 2012 Medical Drug form: Center INJ, ONCE, Dosing Weight 59.091, kg, Start date: 08/17/13 2:16:00, Stop date: 08/17/13 2:16:00(Same as:MORPhine Sulfate) Dilaudid 0.5 mg, 0.25 Inactive [place] [facility] mL, Route: 2012 Medical IV, Drug Center form: INJ, Q3H, Dosing Weight 59.091, kg, PRN Pain Score 7-10, Start date: 08/17/13 1:07:00, Duration: 30 day, Stop date: 09/16/13 1:06:00(Same as: Dilaudid) Benadryl 25 mg, 0.5 Inactive [facility] 08/17[facility] mL, Route: 2012 Medical IVP, Drug Center form: INJ, ONCE, Dosing Weight 59.091, kg, PRN Allergic reaction, Start date: 08/17/13 0:34:00(Same as: Benadryl) Dilaudid 0.5 mg, Inactive [facility] Route: IVP, 2012 Medical ONCE, Dosing Center Weight 59.091, kg, Priority: STAT, Start date: 08/17/13 0:28:00, Stop date: 08/17/13 0:28:00 morphine Sulfate 4 mg, 1 mL, Inactive [facility] Route: IVP, 2012 Medical Drug form: Center INJ, ONCE, Dosing Weight 59.091, kg, Start date: 08/17/13 0:27:00, Stop date: 08/17/13 0:27:00(Same as:MORPhine Sulfate) Colace 100 mg 100 mg, 1 No Longer [place] as oral capsule cap, Route: Active 2012 Medical PO, Drug Center form: CAP, BID, Dosing Weight 59.091, kg, Priority: STAT, Start date: 08/17/13 0:15:00, Duration: 30 day, Stop date: 09/15/13 17:00:00(Same as: Colace) (Do Not Crush) gentamicin + 414 mg, 10.35 No Longer Kaplan [place] Sodium Chloride mL, Route: Active 2012 Medic al 0.9% IV 100 mL IV, [id number], Cent er Dosing Weight 59.091, kg, Priority: STAT, Start date: 08/17/13 0:13:00, Duration: 30 day, Stop date: 09/15/13 0:13:00(Same as Garamycin) D5W 1/2NS + KCL 1,000 mL, Inactive [place] 20mEq/L 1000ml Rate: 100 2012 Medical (Premix) 1,000 ml/hr, Infuse Jama ter mL over: 10 hr, Route: IV, Dosing Weight 59.091 kg, Total Volume: 1,000, Priority: STAT, Start date: 08/17/13 0:11:00, Duration: 30 day, Stop date: 09/16/13 0:10:00PREMIX IV - Do Not Alter Lactated [place] 1,000 mL, Inactive [facility] [place] (Bolus) IV 1,000 Rate: 1,000 2012 Med ical mL ml/hr, Infuse Center over: 1 hr, Route: IV, Dosing Weight 59.091 kg, Total Volume: 1,000, [place]us Dose, Priority: STAT, Start date: 08/16/13 22:44:00, Duration: 1 doses or times, Stop date: 08/16/13 23:43:00 Lactated [place] 1,000 mL, Inactive [facility] [place] (Bolus) IV 1000 Rate: 1,000 2012 Medi danny mL ml/hr, Infuse Center over: 1 hr, Route: IV, Dosing Weight 59.091 kg, Total Volume: 1,000, [place] Dose, Priority: STAT, Start date: 08/16/13 22:27:00, Duration: 1 doses or times, Stop date: 08/16/13 23:26:00 morphine Sulfate 8 mg, 2 mL, Inactive [facility] Route: IVP, 2012 Medical Drug form: Center INJ, ONCE, Dosing Weight 59.091, kg, Priority: STAT, Start date: 08/16/13 21:47:00, Stop date: 08/16/13 21:47:00(Same as:MORPhine Sulfate) cefepime 1 gm, Route: [facility], Drug Active 2012 Medical form: INJ, Center ONCE, Dosing Weight 59.091, kg, Priority: STAT, Start date: 08/16/13 21:46:00, Stop date: 08/16/13 21:46:00(Same As: Maxipime) vancomycin 1 gm, Route: Inactive [facility] 2012 Medical form: INJ, Center ONCE, Dosing Weight 59.091, kg, Priority: STAT, Start date: 08/16/13 21:46:00, Stop date: 08/16/13 21:46:00(Same As: Vancocin) Flagyl 500 mg, 100 Inactive [facility] 08/17[facility] mL, Route: 2012 Medical IVPB, Drug Center form: INJ, ONCE, Dosing Weight 59.091, kg, Priority: STAT, Start date: 08/16/13 21:46:00, Stop date: 08/16/13 21:46:00(Same as: Flagyl) Avoid alcohol. Lactated Ring[place] 1,000 mL, Inactive [facility] [place] (Bolus) IV 1,000 Rate: 1,000 [facility] Med ical mL ml/hr, Infuse Center over: 1 hr, Route: IV, Dosing Weight 59.091 kg, Total Volume: 1,000, Bolus Dose, Priority: STAT, Start date: 08/16/13 21:08:00, Duration: 1 doses or times, Stop date: 08/16/13 22:07:00 morphine Sulfate 4 mg, 1 mL, Inactive [facility] 08/17[facility] Route: IVP, 2012 Medical Drug form: Center INJ, ONCE, Dosing Weight 59.091, kg, Priority: STAT, Start date: 08/16/13 20:48:00, Stop date: 08/16/13 20:48:00(Same as:MORPhine Sulfate) Omnipaque 86 mL, Route: No Longer [facility] 08/17[facility] [place] 350mg/ml IVP, Drug Active 2012 Medical Form: SOLN, [place] Dosing Weight 59.091, kg, ONCALL, STAT, Start date: 08/16/13 20:44:00, Duration: 1 doses or times, Weight = 60 - 74kg -- "To be infused by Radiology Staff ONLY"David ght = 60 - 74kg -- "To be infused by Radiology Staff ONLY"(Same as:Omnipaque 350). morphine Sulfate 4 mg, 1 mL, Inactive Slimp [place] Route: IVP, 2012 Medical Drug form: Center INJ, ONCE, Dosing Weight 59.091, kg, Priority: STAT, Start date: 08/16/13 20:01:00, Stop date: 08/16/13 20:01:00(Same as:MORPhine Sulfate) NS (Bolus) IV 1,000 mL, Inactive [place] 1,000 mL Rate: 1,000 2012 Medical ml/hr, Infuse Center over: 1 hr, Route: IV, Dosing Weight 59.091 kg, Total Volume: 1,000, Priority: STAT, Start date: 08/16/13 20:01:00, Duration: 1 doses or times, Stop date: 08/16/13 21:00:00, Bolus DoseBolus Dose [place] 10/325 1 tab, PO, No Longer [facility] as oral tablet Q6H, PRN, as Active 2012 Medical needed for Center pain, Substitution Allowed, Maintenance Hydrocodone-Acet ; Start Date: Active U T aminophen 5-325 07/17/20132012 Physi cians MG Oral Tablet (Active) Ibuprofen 800 MG ; Start Date: Active U T Oral Tablet 07/17/20132012 Physician s (Active) Lyrica 100 mg, 1 PO No Longer Mueck [facility] cap, Route: Active 2012 Medical PO, Drug Center form: CAP, Q8H, Dosing Weight 54.545, kg, Start date: 05/31/13 16:00:00, Duration: 30 day, Stop date: 06/30/13 8:00:00 Zoloft 25 mg, 1 tab, PO No Longer Pierce [facility] Route: PO, Active 2012 Medical Drug form: Center TAB, Q24H, Dosing Weight 54.545, kg, Start date: 05/31/13 12:00:00, Duration: 30 day, Stop date: 06/29/13 12:00:00 [place] 10/325 1 tab, Route: PO No Longer Mueck [facility] oral tablet PO, Drug Active 2012 Medical Form: TAB, Center Dosing Weight 54.545, kg, Q4H, PRN Pain, Start date: 05/31/13 9:28:00, Duration: 30 day, Stop date: 06/30/13 9:27:00 tramadol 100 mg, 2 PO No Longer Mueck [facility] tab, Route: Active 2012 Medical PO, Drug Center form: TAB, Q6H, Dosing Weight 54.545, kg, PRN Pain, Start date: 05/31/13 9:28:00, Duration: 30 day, Stop date: 06/30/13 9:27:00 Zosyn 3.375 gm, IVPB No Longer Pierce [facility] Route: IVPB, Active 2012 Medical Drug form: Center PDR/INJ, ABXQ6H, Dosing Weight 54.545, kg, Start date: 05/31/13 5:00:00, Duration: 30 day, Stop date: 06/29/13 23:00:00 meropenem 500 mg, IVPB No Longer Pierce [facility] Route: IVPB, Active 2012 Medical Drug form: Center PDR/INJ, ABXQ6H, Dosing Weight 54.545, kg, CrCL > = 50ml/min, Extended infusion, infuse over 3 hours, Start date: 05/31/13 1:00:00, Duration: 30 day, Stop date: 06/29/13 19:00:00 tobramycin 60 mg, Route: IVPB No Longer [place] [facility] [place] IVPB, ABXQ8H, Active 2012 Medical Dosing Weight Center 54.545, kg, Start date: 05/31/13 1:00:00, Duration: 30 day, Stop date: 06/29/13 17:00:00 Tylenol 1,000 mg, 2 PO No Longer Mueck [facility] tab, Route: Active 2012 Medical PO, Drug Center form: TAB, Q6H, Dosing Weight 54.545, kg, PRN as needed for fever, Start date: 05/31/13 0:50:00, Duration: 30 day, Stop date: 06/30/13 0:49:00 acetaminophen 975 mg, PO No Longer Ilochonwu [place] Route: PO, Active 2012 Medical ONCE, Dosing Center Weight 54.545, kg, Priority: STAT, Start date: 05/31/13 0:44:00, Stop date: 05/31/13 0:44:00 enoxaparin 30 mg, 0.3 SUB-Q No Longer [place] mL, Route: Active 2012 Medical SUB-Q, Drug Center form: INJ, [id number], Dosing Weight 54.545, kg, Start date: 05/30/13 23:00:00, Duration: 30 day, Stop date: 06/29/13 11:00:00 morphine Sulfate 2 mg, 1 mL, IVP No Longer Mueck [facility] Route: IVP, Active 2012 Medical Drug form: Center INJ, Q2H, Dosing Weight 54.545, kg, PRN Pain Score 7-10, Start date: 05/30/13 22:50:00, Duration: 30 day, Stop date: 06/29/13 22:49:00 ondansetron 4 mg, 2 mL, IVP No Longer [place] Route: IVP, Active 2012 Medical Drug form: Center INJ, Q8H, Dosing Weight 54.545, kg, PRN Nausea & Vomiting, Start date: 05/30/13 22:49:00, Duration: 30 day, Stop date: 06/29/13 22:48:00 Phenergan 12.5 mg, 0.5 IVPB No Longer [place] mL, Route: Active 2012 Medical IVPB, Drug Center form: INJ, ONCE, Dosing Weight 54.545, kg, PRN Nausea & Vomiting, Start date: 05/30/13 22:49:00, Stop date: 06/29/13 22:48:00 morphine Sulfate 4 mg, 1 mL, IVP No Longer Ditto [facility] Route: IVP, Active 2012 Medical Drug form: Center INJ, ONCE, Dosing Weight 54.545, kg, Start date: 05/30/13 22:46:00, Stop date: 05/30/13 22:46:00 D5W 1/2NS + KCL 1,000 mL, IV No Longer [place] 20mEq/L 1000ml Rate: 80 Active 2012 Medical (Premix) 1,000 ml/hr, Infuse Jama ter mL over: 12.5 hr, Route: IV, Dosing Weight 54.545 kg, Total Volume: 1,000, Start date: 05/30/13 22:30:00, Duration: 30 day, Stop date: 06/29/13 22:29:00 Zosyn 3.375 gm, IVPB No Longer Pierce [facility] Route: IVPB, Active 2012 Medical Drug form: [place] PDR/INJ, ONCE, Dosing Weight 54.545, kg, Priority: STAT, Start date: 05/30/13 22:30:00, Stop date: 05/30/13 22:30:00 morphine Sulfate 4 mg, 1 mL, IVP No Longer Pierce [facility] Route: IVP, Active 2012 Medical Drug form: [place] INJ, Q4H, Dosing Weight 54.545, kg, PRN Pain Score 7-10, Start date: 05/30/13 22:25:00, Duration: 30 day, Stop date: 06/29/13 22:24:00 ondansetron 4 mg, 2 mL, IVP No Longer [place] Route: IVP, Active 2012 Medical Drug form: [place] INJ, Q24H, Dosing Weight 54.545, kg, PRN Nausea & Vomiting, Start date: 05/30/13 22:25:00, Duration: 30 day, Stop date: 06/29/13 22:24:00 Omnipaque 86 mL, Route: IVP No Longer Ilochon[place] 350mg/ml IVP, Drug Active 2012 [facility] Dosing Weight 54.545, kg, ONCALL, STAT, Start date: 05/30/13 21:50:00, Duration: 1 doses or times, Dose = 2.2ml/kg, Max dose = 100ml -- "To be infused by Radiology Staff ONLY"Dose = 2.2ml/kg, Max dose = 100ml -- "To be infused by Radiology Staff ONLY" [place] (Bolus) IV 1,000 mL, IV No Longer [place] as 1,000 mL Rate: 1,000 Active 2012 Medical ml/hr, Infuse Center over: 1 hr, Route: IV, Dosing Weight 54.545 kg, Total Volume: 1,000, Priority: STAT, Start date: 05/30/13 21:27:00, Duration: 1 doses or times, Stop date: 05/30/13 22:26:00, Bolus DoseBolus Dose ondansetron 4 mg, Route: IVP [facility] IVP, Drug Active 2012 Medical form: INJ, Center ONCE, Dosing Weight 54.545, kg, Priority: STAT, Start date: 05/30/13 21:25:00, Stop date: 05/30/13 21:25:00 NS (Bolus) IV 1,000 mL, IV No Longer [facility] [place] 1,000 mL Rate: 1,000 Active 2012 Medical ml/hr, Infuse Center over: 1 hr, Route: IV, Dosing Weight 54.545 kg, Total Volume: 1,000, Priority: STAT, Start date: 05/30/13 20:43:00, Duration: 1 doses or times, Stop date: 05/30/13 21:42:00, Bolus DoseBolus Dose ondansetron 4 mg, 2 mL, IVP No Longer [facility] [place] Route: IVP, Active 2012 Medical Drug form: Center INJ, ONCE, Dosing Weight 54.545, kg, Priority: STAT, Start date: 05/30/13 20:40:00, Stop date: 05/30/13 20:40:00 morphine Sulfate 4 mg, 1 mL, IVP No Longer Wyochonwu [place] Route: IVP, Active 2012 Medical Drug form: Center INJ, ONCE, Dosing Weight 54.545, kg, Priority: STAT, Start date: 05/30/13 20:40:00, Stop date: 05/30/13 20:40:00 NS (Bolus) IV 1,000 mL, IV No Longer [place] as 1,000 mL Rate: 1,000 Active 2012 [facility] ml/hr, Infuse [place] over: 1 hr, Route: IV, Dosing Weight 54.545 kg, Total Volume: 1,000, Priority: STAT, Start date: 05/30/13 20:22:00, Duration: 1 doses or times, Stop date: 05/30/13 21:21:00, Bolus DoseBolus Dose Valium 5 mg, Route: PO No Longer [facility] [place] PO, ONCE, Active 2012 Medical Dosing Weight [place] 68.182, kg, Priority: NOW, Start date: 05/20/13 16:19:00, Stop date: 05/20/13 16:19:00 tramadol 50 mg 100 mg, 2 PO Active [facility] [place] oral tablet tab, PO, Q6H, 2012 Medica l 30 tab, Center Substitution Allowed, TAB sertraline 100 100 mg, 1 PO Active [facility] [place] mg oral tablet tab, PO, 2012 Medical Daily, 30 Center tab, Substitution Allowed, TAB pregabalin 75 mg 150 mg, 2 NG Active [facility] [place] oral capsule cap, NG, Q8H, 2012 Medic al 30 cap, Center Substitution Allowed, CAP enoxaparin 30 30 mg, 0.3 SUB-Q Active [facility] [place] mg/0.3 mL mL, SUB-Q, 2012 Medical subcutaneous Q12H, 7 mL, [place] solution Substitution Allowed, INJ docusate sodium 100 mg, 1 PO Active [facility] [place] as 100 mg oral cap, PO, BID, 2012 Medica l capsule 30 cap, Center Substitution Allowed, CAP diazepam 5 mg 5 mg, 1 tab, NG Active [facility] [place] oral tablet NG, Q12H, 2012 Medical PRN, 10 tab, [place] as needed for anxiety, Substitution Allowed, TAB celecoxib 100 mg 200 mg, 2 [place] Active [facility] [place] oral capsule cap, NG, 2012 Medical Q12H, 30 cap, Center Substitution Allowed, CAP acetaminophen-hy 1-2 tab, PO, PO Active [facility] drocodone 325 Q4-6H, PRN, 2012 Medica l mg-10 mg oral 30 tab, Pain, Cent er tablet Substitution Allowed, Maintenance, TAB Zoloft 100 mg, 1 PO No Longer Stano [facility] tab, Route: Active 2012 Medical PO, Drug Center form: TAB, Daily, Dosing Weight 68.182, kg, Start date: 05/19/13 9:00:00, Duration: 30 day, Stop date: 06/17/13 9:00:00 [place] 10/325 1 tab, Route: PO No Longer Stano [facility] oral tablet PO, Drug Active 2012 Medical Form: TAB, Center Dosing Weight 68.182, kg, Q4H, Start date: 05/18/13 20:00:00, Duration: 30 day, Stop date: 06/17/13 16:00:00 acetaminophen-hy 1 tab, Route: [facility] drocodone 325 PO, Drug Active 2012 Medical mg-10 mg oral Form: TAB, Center tablet Dosing Weight 68.182, kg, Q4H, PRN Pain, Start date: 05/18/13 16:52:00, Duration: 30 day, Stop date: 06/17/13 16:51:00 tramadol 100 mg, 2 PO No Longer Stano [facility] tab, Route: Active 2012 Medical PO, Drug Center form: TAB, Q6H, Dosing Weight 68.182, kg, Start date: 05/18/13 12:00:00, Duration: 30 day, Stop date: 06/17/13 6:00:00 bisacodyl 10 mg, 2 tab, PO No Longer Stano [place] Route: PO, Active 2012 Medical Drug form: Center ECTAB, Daily, Dosing Weight 68.182, kg, PRN Constipation, Start date: 05/18/13 10:37:00, Duration: 30 day, Stop date: 06/17/13 10:36:00 sodium chloride 5 mL, Route: INJ No Longer [facility]en [facility] 0.9% Irrigation INJ, Dosing Active 2012 [facility] 68.182, kg, [id number], PRN Line Flush, Start date: 05/13/13 16:03:00, Duration: 30 day, Stop date: 06/12/13 16:02:00 molasses 240 mL, [place] No Longer Flaco [facility] Route: AR, Active Formerly Named [facility] 2012 Medical Drug Form: [place] SYRP, Dosing Weight 68.182, kg, ONCE, Milk of Molasses Enema, Start date: 05/12/13 10:35:00, Duration: 1 doses or times, Stop date: 05/12/13 10:35:00 metoprolol 12.5 mg, 1 PO No Longer [place] tartrate ea, Route: Active 2012 Medical PO, Drug Center form: TAB, BID, Dosing Weight 68.182, kg, Start date: 05/11/13 21:00:00, Duration: 30 day, Stop date: 06/10/13 17:00:00 Omnipaque 78 mL, Route: IVP No Longer Flaco [place] 350mg/ml IVP, Drug Active Formerly Named [facility] 2012 Medical Form: [facility] Dosing Weight 68.182, kg, ONCALL, STAT, Start date: 05/10/13 17:38:00, Duration: 1 doses or times, Weight = 60 - 74kg -- "To be infused by Radiology Staff ONLY"David ght = 60 - 74kg -- "To be infused by Radiology Staff ONLY" methadone 2.5 mg, 0.5 PO No Longer [place] tab, Route: Active 2012 Medical PO, Drug Center form: TAB, Q8H, Dosing Weight 68.182, kg, Start date: 05/10/13 16:00:00, Duration: 30 day, Stop date: 06/09/13 8:00:00 Zofran 4 mg, 2 mL, IV No Longer Flaco [facility] Route: IV, Active Formerly Named [facility] 2012 Medical Drug form: [place] INJ, ONCE, Dosing Weight 68.182, kg, Start date: 05/10/13 14:21:00, Stop date: 05/10/13 14:21:00 Kayexalate 15 gm, 60 mL, [place] Long[place] Route: PO, Active Formerly Named [facility] 2012 Medical Drug form: [place] SUSP, ONCE, Dosing Weight 68.182, kg, Start date: 05/10/13 12:00:00, Stop date: 05/10/13 12:00:00 [place] 10/325 2 tab, Route: PO No Longer Stano [place] oral tablet PO, Drug Active 2012 Medical Form: TAB, Center Dosing Weight 68.182, kg, Q6H, Start date: 05/10/13 12:00:00, Duration: 30 day, Stop date: 06/09/13 6:00:00 Kayexalate 15 gm, 60 mL, [place] Longer [place] Route: PO, Active 2012 Medical Drug form: [place] SUSP, Daily, Dosing Weight 68.182, kg, Start date: 05/09/13 17:00:00, Duration: 30 day, Stop date: 06/08/13 9:00:00 MiraLax 17 gm, 1 pkt, PO No Longer Zaza [place] Route: PO, Active 2012 Medical Drug form: [place] PWDR, Daily, Dosing Weight 68.182, kg, Start date: 05/08/13 9:00:00, Duration: 30 day, Stop date: 06/06/13 9:00:00 Diflucan 400 mg, 200 IVPB No Longer Stano [place] mL, Route: Active 2012 Medical IVPB, Drug Center form: INJ, [id number], Dosing Weight 68.182, kg, Start date: 05/05/13 11:00:00, Duration: 30 day, Stop date: 06/03/13 11:00:00 magnesium 2 gm, 50 mL, IVPB [place] Longer [place] sulfate Route: IVPB, Active 2012 Medical Drug form: [place] INJ, ONCE, Dosing Weight 68.182, kg, Start date: 05/05/13 10:26:00, Duration: 1 doses or times, Stop date: 05/05/13 10:26:00, For Mg = 1.8 - 2 mg/dLFor Mg = 1.8 - 2 mg/dL metoprolol 25 mg, 1 tab, [place] Long[place] tartrate Route: PO, Active 2012 Medical Drug form: [place] TAB, Q12H, Dosing Weight 68.182, kg, Start date: 05/04/13 21:00:00, Duration: 30 day, Stop date: 06/03/13 9:00:00 Zoloft 50 mg, Route: [place] No Longer Chamberlain [place], Daily, Active 2012 Medical Dosing Weight Center 68.182, kg, Start date: 05/04/13 9:00:00, Duration: 30 day, Stop date: 06/02/13 9:00:00 Merrem 500 mg, IVPB No Longer Mueck [facility] Route: IVPB, Active 2012 Medical Drug form: [place] PDR/INJ, ABXQ6H, Dosing Weight 68.182, kg, CrCL > = 50ml/min, Extended infusion, infuse over 3 hours, Start date: 05/03/13 13:08:00, Duration: 30 day, Stop date: 06/02/13 9:00:00 meropenem 500 mg, IVPB No Longer Collom [facility] Route: IVPB, 2012 Medical Drug form: [place] PDR/INJ, ABXQ6H, Dosing Weight 68.182, kg, CrCL > = 50ml/min, Extended infusion, infuse over 3 hours, Start date: 05/03/13 12:00:00, Duration: 30 day, Stop date: 06/02/13 6:00:00 methadone 5 mg, 1 tab, PO No Longer Flaco [place] Route: PO, Active 2012 Medical Drug form: [place] TAB, Q12H, Dosing Weight 68.182, kg, Start date: 05/02/13 9:00:00, Duration: 30 day, Stop date: 05/31/13 21:00:00 [place] 1 appl, [place] Longer [place] Strength Route: TOP, Active 2012 Medical Solution Drug Form: [place] SOLN, Dosing Weight 68.182, kg, Daily, Start date: 05/02/13 9:00:00, Duration: 30 day, Stop date: 05/31/13 9:00:00 Ultram 50 mg 50 mg, 1 tab, PO No Longer Stano [place] oral tablet Route: PO, Active 2012 Medical Drug form: [place] TAB, Q6H, Dosing Weight 68.182, kg, PRN Pain, Start date: 05/02/13 8:40:00, Duration: 30 day, Stop date: 06/01/13 8:39:00 micafungin 100 mg, IV No Longer Stano [facility] Route: IV, Active 2012 Medical Drug form: [place] INJ, [id number], Dosing Weight 68.182, kg, Start date: 05/01/13 17:00:00, Duration: 30 day, Stop date: 05/29/13 22:00:00 Insulin regular 3 unit, 0.03 SUB-Q No Longer Keon [facility] mL, Route: Active 2012 Medical SUB-Q, Drug Center form: SOLN, TID-Before Meals, Dosing Weight 68.182, kg, PRN Blood Glucose Results, Start date: 05/01/13 15:06:00, Duration: 30 day, Stop date: 05/31/13 15:05:00 glucagon 1 mg, Route: IM No Longer [place] as IM, Drug Active 2012 Medical form: [place] PDR/INJ, PRN, Dosing Weight 68.182, kg, PRN Blood Glucose Results, Start date: 05/01/13 15:06:00, Duration: 30 day, Stop date: 05/31/13 15:05:00 Dextrose 50% 12.5 gm, 25 IVP [place] Longer [place] Syringe mL, Route: Active 2012 Medical IVP, Drug Center Form: INJ, Dosing Weight 68.182, kg, PRN, PRN Blood Glucose Results, Start date: 05/01/13 15:06:00, Duration: 30 day, Stop date: 05/31/13 15:05:00 LR IV 1,000 mL 1,000 mL, [place] No Longer Zaza [place] Rate: 30 Active 2012 Medical ml/hr, Infuse [place] over: 33.3 hr, Route: IV, Dosing Weight 68.182 kg, Total Volume: 1,000, Start date: 05/01/13 10:50:00, Stop date: 05/31/13 10:49:00 Zoloft 50 mg, 1 tab, PO No Longer Stano [place] Route: PO, Active 2012 Medical Drug form: [place] TAB, Daily, Dosing Weight 68.182, kg, Start date: 05/01/13 9:00:00, Duration: 30 day, Stop date: 05/30/13 9:00:00 Versed 2 mg, Route: IVP No Longer Bellister 04/30[facility] [place] IVP, ONCE, Active 2012 Medical Dosing Weight Center 68.182, kg, Start date: 04/30/13 16:45:00, Stop date: 04/30/13 16:45:00 lidocaine-epi 30 mL, Route: SUB-Q No Longer Bellister 04/30[facility] [id number] SUB-Q, Dosing Active 2012 Medica l Weight Center 68.182, kg, ONCE, Start date: 04/30/13 16:45:00, Stop date: 04/30/13 16:45:00 fentanyl 100 IV No Longer Bellister 04/30[facility] [place] microgram, Active 2012 Medical Route: IV, Center ONCE, Dosing Weight 68.182, kg, Start date: 04/30/13 16:45:00, Stop date: 04/30/13 16:45:00 lidocaine-epi Route: SUB-Q, SUB-Q No Longer Joann [facility] [id number] Drug Form: Active 2012 Medical SOLN, Dosing Center Weight 68.182, kg, ONCE, Start date: 04/30/13 16:22:00, Stop date: 04/30/13 16:22:00 METRONIDazole 500 mg, 100 IVPB No Longer [place] 04/30[facility] mL, Route: Active 2012 Medical IVPB, Drug Center form: INJ, ABXQ8H, Dosing Weight 68.182, kg, Start date: 04/30/13 13:00:00, Duration: 30 day, Stop date: 05/30/13 5:00:00 vancomycin 1 gm, Route: IVPB No Longer [place] 04/30[facility] [place] IVPB, Drug Active 2012 Medical form: INJ, Center ABXQ6H, Dosing Weight 68.182, kg, Start date: 04/30/13 13:00:00, Duration: 30 day, Stop date: 05/30/13 5:00:00 Omnipaque 90 mL, Route: IVP No Longer Chamberlain 04/30[facility] [place] as 350mg/ml IVP, Drug Active 2012 Medical Form: SOLN, Center Dosing Weight 68.182, kg, ONCALL, STAT, Start date: 04/30/13 9:49:00, Duration: 1 doses or times, Stop date: 05/01/13 0:00:00, Dose = 2.2ml/kg, Max dose = 100ml -- "To be infused by Radiology Staff ONLY"Dose = 2.2ml/kg, Max dose = 100ml -- "To be infused by Radiology Staff ONLY" cefepime 1 gm, Route: IVPB No Longer Collom [place] IVPB, Drug Active 2012 Medical form: INJ, [place] ABXQ6H, Dosing Weight 68.182, kg, (CrCl >/= 50 ml/min), Start date: 04/30/13 7:00:00, Duration: 30 day, Stop date: 05/30/13 1:00:00 vancomycin 2 gm, 500 mL, IVPB No Longer [place] Route: IVPB, Active 2012 Medical Drug form: [place] SOLN, ONCE, Dosing Weight 68.182, kg, Start date: 04/30/13 6:17:00, Stop date: 04/30/13 6:17:00 Valium 5 mg, 1 tab, NG No Longer Caal [facility] Route: NG, Active 2012 Medical Drug form: Center TAB, Q12H, Dosing Weight 68.182, kg, PRN as needed for anxiety, Start date: 04/28/13 21:00:00, Stop date: 05/28/13 9:00:00 Protonix 40 mg, Route: IVP No Longer Joann [place] IVP, Drug Active 2012 Medical form: INJ, Center Q12H, Dosing Weight 68.182, kg, Start date: 04/27/13 21:00:00, Duration: 30 day, Stop date: 05/27/13 9:00:00 acetaminophen 1,000 mg, IV No Longer Luke William as Route: IV, Active 2012 Medical Q6H, Dosing Center Weight 68.182, kg, Start date: 04/27/13 12:00:00, Duration: 30 day, Stop date: 05/27/13 6:00:00 clonidine 0.2 mg 0.2 mg, 1 NG No Longer Denver [facility] oral tablet tab, Route: Active 2012 Medical NG, Drug Center form: TAB, Q4H, Dosing Weight 68.182, kg, Start date: 04/27/13 12:00:00, Duration: 30 day, Stop date: 05/27/13 8:00:00 acetaminophen 1,000 mg, 2 [place] No Longer Zaza [place] tab, Route: Active 2012 Medical NG, Drug Center form: TAB, Q6H, Start date: 04/27/13 12:00:00, Duration: 30 day, Stop date: 05/27/13 6:00:00 Lyrica 150 mg, 2 NG No Longer Stano [facility] cap, Route: Active 2012 Medical NG, Drug Center form: CAP, Q8H, Dosing Weight 68.182, kg, Start date: 04/27/13 10:00:00, Stop date: 05/27/13 8:00:00 Celebrex 200 mg, 2 NG No Longer Denver [facility] cap, Route: Active 2012 Medical NG, Drug Center form: CAP, Q12H, Dosing Weight 68.182, kg, Start date: 04/27/13 10:00:00, Duration: 30 day, Stop date: 05/27/13 9:00:00 sterile water 1.2 mL, [facility] Route: IV, Active 2012 Medical Drug Form: Center INJ, Q4H, PRN Other -See Comment, Start date: 04/26/13 9:03:00, Duration: 30 day, Stop date: 05/26/13 9:02:00 Valium 5 mg, 1 tab, PO No Longer Collom [facility] Route: PO, Active 2012 Medical Drug form: Center TAB, TID, Dosing Weight 68.182, kg, Start date: 04/26/13 9:00:00, Duration: 30 day, Stop date: 05/25/13 17:00:00 clonidine 0.2 mg 0.2 mg, 1 PO No Longer Luke [facility] oral tablet tab, Route: Active 2012 Medical PO, Drug Center form: TAB, TID, Dosing Weight 68.182, kg, Start date: 04/26/13 9:00:00, Duration: 30 day, Stop date: 05/25/13 17:00:00 Valium 5 mg, 1 tab, PO No Longer Stano [facility] Route: PO, Active 2012 Medical Drug form: [place] TAB, QID, Dosing Weight 68.182, kg, PRN as needed for anxiety, Start date: 04/26/13 8:49:00, Duration: 30 day, Stop date: 05/26/13 8:48:00 [place] 5/325 oral 1 tab, Route: PO No Longer Denver [facility] tablet PO, Drug Active 2012 Medical Form: TAB, Center Dosing Weight 68.182, kg, Q6H, PRN as needed for pain, Start date: 04/26/13 8:42:00, Duration: 30 day, Stop date: 05/26/13 8:41:00 Geodon 10 mg, Route: IM No Longer Stano [facility] IM, Drug Active 2012 Medical form: [place] PDR/INJ, Q4H, Dosing Weight 68.182, kg, PRN Other -See Comment, Start date: 04/26/13 8:41:00, Duration: 30 day, Stop date: 05/26/13 8:40:00, anxiety and agitation pantoprazole 80 100 mL, Rate: IVPB No Longer Folkerson [facility] mg + Sodium 10 ml/hr, Active 2012 Medical Chloride 0.9% IV Infuse over: Ce nter 100 mL 10 hr, Route: IVPB, Dosing Weight 68.182 kg, Total Volume: 100, Infuse at 8 mg / hr for 72 hours for GI bleeding, Start date: 04/25/13 10:27:00, Duration: 72 hr, Stop date: 04/28/13 10:26:00 tetanus/diphther 0.5 ml, Inactive [place] ia/pertussis, Route: IM, 2012 Medical acel (Tdap) 5 Drug Form: [place] units-2.5 INJ, kg, units-18.5 ONCE, Start mcg/0.5 mL date: intramuscular 04/24/13 suspensio 13:39:00, Stop date: 04/24/13 13:39:00(Tdap ) For Adolecent and Adult use For IM Use. Same as: Adacel (Tdap) LR IV 1,000 mL 1,000 mL, IV No Longer Folkerson [facility] Rate: 1,000 Active 2012 Medical ml/hr, Infuse Center over: 1 hr, Route: IV, Dosing Weight 68.182 kg, Total Volume: 1,000, Start date: 04/24/13 9:43:00, Duration: 30 day, Stop date: 05/24/13 9:42:00 Lactated Ringers 500 mL, Rate: IV No Longer Collom [place] (Bolus) IV 500 999 ml/hr, Active 2012 Medica l mL Infuse over: Center 0.5 hr, Route: IV, Dosing Weight 68.182 kg, Total Volume: 500, Priority: NOW, Start date: 04/24/13 0:54:00, Stop date: 05/24/13 0:53:00 Protonix 40 mg, Route: IVP No Longer [place] IVP, Drug Active 2012 Medical form: INJ, Center Q12H, Dosing Weight 68.182, kg, Start date: 04/23/13 21:00:00, Duration: 30 day, Stop date: 05/23/13 9:00:00 acetaminophen 10 1,000 mg, [address] [facility] mg/mL mL, Route: Active 2012 Medical intravenous IV, Drug Center solution form: INJ, ONCE, Dosing Weight 68.182, kg, Priority: NOW, Start date: 04/23/13 20:33:00, Stop date: 04/23/13 20:33:00 Lactated Ringers 1,000 mL, IV No Longer Collom [facility] IV 1,000 mL Rate: 100 Active 2012 Medical ml/hr, Infuse Center over: 10 hr, Route: IV, Dosing Weight 68.182 kg, Total Volume: 1,000, Start date: 04/23/13 20:31:00, Duration: 30 day, Stop date: 05/23/13 20:30:00 FENTanyl 1000 1,000 IV No Longer Luke [facility] mcg in 20 mL microgram, 20 Active 2012 Medic al (titrate) IV mL, Rate: Center 1,000 microgram Titrate as directed, Dosing Weight 68.182, kg, Route: IV, Total Volume: 20 ml, Duration: 30 day, Stop date: 05/23/13 19:10:00, Replace Every: 24 hr fentanyl 50 microgram, IV No Longer [place] 1 mL, Route: Active 2012 Medical IV, Drug Center form: INJJOSEALL, Dosing Weight 68.182, kg, Start date: 04/23/13 17:00:00 LR IV 1,000 mL 1,000 mL, IV No Longer Folkerson [place] Rate: 1,000 Active 2012 Medical ml/hr, Infuse Center over: 1 hr, Route: IV, Dosing Weight 68.182 kg, Total Volume: 1,000, Start date: 04/23/13 16:34:00, Duration: 1 doses or times, Stop date: 04/23/13 17:33:00 vancomycin 1 gm, Route: IVPB No Longer Joann [place] IVPB, Drug Active 2012 Medical form: INJ, Center ABXQ8H, Dosing Weight 68.182, kg, Start date: 04/23/13 16:00:00, Stop date: 04/29/13 23:00:00 LR IV 1,000 mL 1,000 mL, IV No Longer Bellister [place] Rate: 1,000 Active 2012 Medical ml/hr, Infuse Center over: 1 hr, Route: IV, Dosing Weight 68.182 kg, Total Volume: 1,000, Start date: 04/23/13 12:40:00, Duration: 1 doses or times, Stop date: 04/23/13 13:39:00 Omnipaque 100 mL, IVP No Longer Bellister [place] 350mg/ml Route: IVP, Active 2012 Medical Drug Form: Center KELINN, Dosing Weight 68.182, kg, ONCALL, STAT, Start date: 04/23/13 12:33:00, Duration: 1 doses or times, Stop date: 04/24/13 0:00:00, Dose = 2.2ml/kg, Max dose = 100ml -- "To be infused by Radiology Staff ONLY"Dose = 2.2ml/kg, Max dose = 100ml -- "To be infused by Radiology Staff ONLY" vancomycin + 2 gm, Route: IVPB No Longer [place] Sodium Chloride IVPB, ONCE, Active 2012 Medi danny 0.9% IV 500 mL Start date: Doreen r 04/23/13 7:17:00, Stop date: 04/23/13 7:17:00 Flagyl 500 mg, 100 IVPB No Longer [facility] mL, Route: Active 2012 Medical IVPB, Drug Center form: INJ, ABXQ8H, Dosing Weight 68.182, kg, Start date: 04/23/13 7:00:00, Stop date: 04/29/13 23:00:00 cefepime 1 gm, Route: IVPB No Longer [facility] IVPB, Drug Active 2012 Medical form: INJ, Center ABXQ6H, Dosing Weight 68.182, kg, (CrCl >/= 50 ml/min), Start date: 04/23/13 7:00:00, Stop date: 04/29/13 23:00:00 Motrin 400 mg, 20 NG No Longer Caal [facility] mL, Route: Active 2012 [facility] NG, Drug Center form: SUSP, ONCE, Dosing Weight 68.182, kg, Start date: 04/22/13 19:54:00, Stop date: 04/22/13 19:54:00 hydrochlorothiaz 1 tab, Route: PO No Longer Basiakerson 04/22 [facility] rustam-losartan 25 PO, Drug Active 2012 Medical mg-100 mg oral Form: TAB, Center tablet Dosing Weight 68.182, kg, Daily, Start date: 04/22/13 13:49:00, Duration: 30 day, Stop date: 05/22/13 9:00:00 potassium 2 pkt, Route: [place] No Longer Ramírez William as phosphate-sodium NG, Drug Active 2012 Medica l phosphate 250 Form: Center mg-278 mg-164 mg PDR/REC, Q6H, oral powder Start date: 04/22/13 12:00:00, Duration: 30 day, Stop date: 05/22/13 6:00:00 Dulcolax 10 mg, 1 [place] No Longer Stano [facility] Laxative supp, Route: Active 2012 [facility] [place], Drug Center form: SUPP, Daily, Start date: 04/22/13 11:00:00, Duration: 30 day, Stop date: 06/21/13 9:00:00 methadone 5 mg, 1 tab, [place] Longer [place] Route: NG, Active 2012 Medical Drug form: Center TAB, Q8H, Dosing Weight 68.182, kg, Start date: 04/22/13 10:30:00, Stop date: 05/22/13 8:00:00 clonidine 0.1 mg, 1 NG No Longer [place] tab, Route: Active 2012 Medical NG, Drug Center form: TAB, Q4H, Dosing Weight 68.182, kg, Start date: 04/22/13 10:30:00, Duration: 30 day, Stop date: 05/22/13 8:00:00 propofol 10 1,000 mg, 100 IV No Longer [place] mg/ml (titrate) mL, Rate: Active 2012 Medica l 1,000 mg Titrate as Center directed, Dosing Weight 68.182, kg, Route: IV, Total Volume: 100 ml, Start date: 04/22/13 10:21:00, Duration: 30 day, Stop date: 05/22/13 10:20:00, Replace Every: 24 hr Lovenox 30 mg, 0.3 SUB-Q No Longer [place] mL, Route: Active 2012 Medical SUB-Q, Drug Center form: INJ, Q12H, Dosing Weight 68.182, kg, Start date: 04/22/13 9:00:00, Duration: 30 day, Stop date: 06/21/13 4:00:00 propofol 10 1,000 mg, 100 IV No Longer [place] mg/ml (titrate) mL, Rate: Active 2012 Medica l 1,000 mg titrate to Center sedation, Dosing Weight 68.182, kg, Route: IV, Total Volume: 100 ml, Start date: 04/21/13 23:27:00, Duration: 30 day, Stop date: 05/21/13 23:26:00, Replace Every: 12 hr ibuprofen 100 400 mg, 20 [place] No Longer Ghamarian [place] mg/5 mL oral mL, Route: Active 2012 Medical suspension [place], Drug Center form: SUSP, ONCE, Dosing Weight 68.182, kg, Start date: 04/21/13 23:03:00, Stop date: 04/21/13 23:03:00 Lactated Ringers 1,000 mL, IV No Longer amarian [facility] ([place]olus) IV 1,000 Rate: 1,000 Active 2012 Med ical mL ml/hr, Infuse Center over: 1 hr, Route: IV, Dosing Weight 68.182 kg, Total Volume: 1,000, Start date: 04/21/13 23:02:00, Duration: 30 day, Stop date: 05/21/13 23:01:00 morphine Sulfate 4 mg, 1 mL, IVP No Longer Ghamarian [facility] Route: IVP, Active 2012 Medical Drug form: [place] INJ, ONCE, Dosing Weight 68.182, kg, Start date: 04/21/13 20:32:00, Stop date: 04/21/13 20:32:00 LR IV 1,000 mL 1,000 mL, IV No Longer Erickister [place] Rate: 1,000 Active 2012 Medical ml/hr, Infuse Center over: 1 hr, Route: IV, Dosing Weight 68.182 kg, Total Volume: 1,000, Start date: 04/21/13 0:37:00, Duration: 1 doses or times, Stop date: 04/21/13 1:36:00 Ancef 2 gm, 50 mL, IVPB No Longer Tariq [facility] Route: IVPB, Active 2012 Medical Drug form: [place] INJ, ONCE, Dosing Weight 68.182, kg, Start date: 04/20/13 16:00:00, Duration: 1 doses or times, Stop date: 04/20/13 16:00:00 bisacodyl 10 mg, 2 tab, [place] No Longer [place] William as Route: [place], Active 2012 Medical Drug form: [place] ECTAB, Daily, Dosing Weight 68.182, kg, Start date: 04/20/13 9:00:00, Duration: 30 day, Stop date: 05/19/13 9:00:00 potassium 30 mmol, 10 IVPB No Longer Bellister [place] phosphate + mL, Route: Active 2012 Medical Sodium Chloride IVPB, ONCE, Cent er 0.9% IV 250 mL Dosing Weight 68.182, kg, Start date: 04/20/13 6:15:00, Stop date: 04/20/13 6:15:00 Lovenox 30 mg, 0.3 SUB-Q No Longer Chamberlain [facility] mL, Route: Active 2012 Medical SUB-Q, Drug Center form: INJ, Q12H, Dosing Weight 68.182, kg, Start date: 04/19/13 21:00:00, Duration: 30 day, Stop date: 05/19/13 9:00:00 docusate 100 mg, 1 PO No Longer Denver [facility] cap, Route: Active 2012 Medical PO, Drug Center form: CAP, BID, Dosing Weight 68.182, kg, Start date: 04/19/13 17:00:00, Duration: 30 day, Stop date: 06/18/13 9:00:00 Neutra-Phos 2 pkt, Route: PO No Longer Bellister [facility] PO, Drug Active 2012 Medical Form: Center PDR/REC, Dosing Weight 68.182, kg, TID-Before Meals, Start date: 04/19/13 16:30:00, Duration: 30 day, Stop date: 05/19/13 11:30:00 heparin 5,000 unit, 1 SUB-Q No Longer Chamberlain 04/19[facility] mL, Route: Active 2012 Medical SUB-Q, Drug Center form: INJ, Q8H, Dosing Weight 68.182, kg, Start date: 04/19/13 16:00:00, Duration: 30 day, Stop date: 05/19/13 8:00:00 Roxicodone 10 mg, 10 mL, [place] Longer [place] Route: [place], Active 2012 Medical Drug form: Center LIQ, Q4H, Start date: 04/19/13 14:45:00, Duration: 30 day, Stop date: 05/19/13 12:00:00 Tylenol 975 mg, 30.45 [place] No Longer Folk[place] William as mL, Route: Active 2012 Medical [place], Drug Center form: LIQ, Q6H, Start date: 04/19/13 14:30:00, Duration: 30 day, Stop date: 05/19/13 12:00:00 Roxicodone 5 mg, 5 mL, [place] No Longer [place] Route: [place], Active 2012 Medical Drug form: [place] LIQ, Q4H, Start date: 04/19/13 14:30:00, Duration: 30 day, Stop date: 05/19/13 12:00:00 Tylenol 975 mg, 30.45 [place] No Longer Chamberlain [place] mL, Route: Active 2012 Medical [place], Drug Center form: LIQ, Q6H, Dosing Weight 68.182, kg, Start date: 04/19/13 12:00:00, Duration: 30 day, Stop date: 05/19/13 6:00:00 OXYcodone 5 mg 10 mg, 10 mL, [place] No Longer Chamberlain [facility] immediate Route: [place], Active 2012 Medical release Drug form: [place] LIQ, Q4H, Dosing Weight 68.182, kg, Start date: 04/19/13 12:00:00, Duration: 30 day, Stop date: 05/19/13 8:00:00 magnesium 2 gm, 50 mL, IVPB No Longer [place] sulfate Route: IVPB, Active 2012 Medical Drug form: [place] INJ, Q2H, Dosing Weight 68.182, kg, Total dose = 4 gm, Start date: 04/19/13 12:00:00, Duration: 2 doses or times, Stop date: 04/19/13 14:00:00 hydrocortisone 100 mg, 2 mL, IV No Longer [facility] Route: IV, Active 2012 Medical Drug form: [place] PDR/INJ, Q8H, Dosing Weight 68.182, kg, Start date: 04/19/13 0:00:00, Duration: 30 day, Stop date: 05/18/13 16:00:00 METRONIDazole 500 mg, 100 IVPB No Longer [place] mL, Route: Active 2012 Medical IVPB, Drug Center form: INJ, ABXQ8H, Dosing Weight 68.182, kg, Start date: 04/18/13 21:00:00, Duration: 30 day, Stop date: 05/18/13 13:00:00 cefepime 1 gm, Route: IVPB No Longer [place] [facility] IVPB, Drug Active 2012 Medical form: INJ, Center [id number], Dosing Weight 68.182, kg, (CrCl 30 - 49 ml/min), Start date: 04/18/13 21:00:00, Duration: 30 day, Stop date: 05/18/13 9:00:00 norepinephrine 234 mL, Rate: IV No Longer Chamber[place] 04/19[facility] [place] 16 mg + Sodium Use as Active 2012 Medical Chloride 0.9% directed, Center (titrate) 234 mL Dosing Weight 68.182, kg, Route: IV, Total Volume: 250 mL, Stop date: 05/18/13 20:24:00, Replace Every: 24 hr calcium 3,000 mg, 30 IVPB No Longer Irving [facility] gluconate + mL, Route: Active 2012 Medical Sodium Chloride IVPB, ONCE, [facility] er 0.9% IV 100 mL Dosing Weight 68.182, kg, Start date: 04/18/13 20:12:00, Stop date: 04/18/13 20:12:00 Lactated Ringers 500 mL, Rate: IV No Longer Bellister 04/19 [facility] (Bolus) IV 500 500 ml/hr, Active 2012 Medica l mL Infuse over: Center 1 hr, Route: IV, Dosing Weight 68.182 kg, Total Volume: 500, Start date: 04/18/13 19:37:00, Duration: 30 day, Stop date: 05/18/13 19:36:00 Ancef 1 gm, Route: IVPB No Longer Delgado [facility] IVPB, ONCE, Active 2012 Medical Dosing Weight Center 68.182, kg, Start date: 04/18/13 17:05:00, Duration: 1 doses or times, Stop date: 04/18/13 17:05:00 methadone 10 mg, 1 tab, PO No Longer Chamberlain William as Route: PO, Active 2012 Medical Drug form: Center TAB, Q8H, Dosing Weight 68.182, kg, Start date: 04/18/13 16:00:00, Duration: 30 day, Stop date: 05/18/13 8:00:00 Tylenol 975 mg, 3 PO No Longer Chamberlain Glendy tab, Route: Active 2012 Medical PO, Drug Center form: TAB, Q6H, Dosing Weight 68.182, kg, Start date: 04/18/13 12:00:00, Duration: 30 day, Stop date: 05/18/13 6:00:00 Xanax Substitution No Longer [facility] Allowed Active 2012 Medical Center Lexapro Substitution No Longer [facility] Allowed Active 2012 Medical [place] Pepcid 20 mg 20 mg, 1 tab, PO No Longer [place] [facility] oral tablet Route: PO, Active 2012 Medical Drug form: Center TAB, Q12H, Dosing Weight 68.182, kg, Start date: 04/18/13 9:00:00, Duration: 30 day, Stop date: 05/17/13 21:00:00 Insulin regular 4 unit, 0.04 SUB-Q No Longer [place] [facility] mL, Route: Active 2012 Medical SUB-Q, Drug Center form: SOLN, PRN, Dosing Weight 68.182, kg, PRN Abnormal Lab Result, Start date: 04/18/13 8:31:00, Duration: 30 day, Stop date: 05/18/13 8:30:00, For FSBG 126mg/dL - 140mg/dLFor FSBG 126mg/dL - 140mg/dL Dextrose 50% 12.5 gm, 25 IVP No Longer [place] [facility] Syringe mL, Route: Active 2012 Medical IVP, Drug Center Form: INJ, Dosing Weight 68.182, kg, PRN, PRN Abnormal Lab Result, Start date: 04/18/13 8:31:00, Duration: 30 day, Stop date: 05/18/13 8:30:00, For FSBG 40mg/dL - 60mg/dLFor FSBG 40mg/dL - 60mg/dL Tylenol 1,000 mg, 100 PO No Longer Collom [facility] mL, Route: Active 2012 Medical PO, Drug Center form: INJ, Q6H, Dosing Weight 68.182, kg, PRN as needed for fever, Start date: 04/18/13 5:28:00, Duration: 30 day, Stop date: 05/18/13 5:27:00 Haldol 5 mg, 1 mL, IM No Longer [place] [facility] Route: IM, Active 2012 Medical Drug form: [place] INJ, Q4H, Dosing Weight 68.182, kg, PRN Anxiety, Start date: 04/18/13 3:25:00, Duration: 30 day, Stop date: 05/18/13 3:24:00 FENTanyl - one 100 IVP No Longer Luke Williama s time ICU bolus microgram, 2 Active 2012 Medi danny dose mL, Route: [place] IVP, Drug form: INJ, ONCE, Dosing Weight 68.182, kg, Start date: 04/18/13 2:36:00, Stop date: 04/18/13 2:36:00 ketamine 100 mg, 100 IV No Longer [place] [facility] 100mg/NS 100ml mL, Rate: See Active 2012 Med ical (1mg/ml) 100 mg Order Center Comments, Dosing Weight 68.182, kg, Route: IV, Total Volume: 100 mL, Duration: 30 day, Stop date: 05/18/13 1:56:00, Replace Every: 24 hr Sodium Chloride 500 mL, Rate: IV No Longer Sabihason [facility] 3% IV 500 mL 30 ml/hr, Active 2012 Medical Infuse over: Center 16.7 hr, Route: IV, Dosing Weight 68.182 kg, Total Volume: 500, Start date: 04/17/13 21:56:00, Duration: 30 day, Stop date: 05/17/13 21:55:00 Sodium Chloride 500 mL, Rate: [facility] 5% IV 500 mL 30 ml/hr, Active 2012 Medical Infuse over: Center 16.7 hr, Route: IV, Dosing Weight 68.182 kg, Total Volume: 500, Start date: 04/17/13 21:51:00, Duration: 30 day, Stop date: 05/17/13 21:50:00 sodium chloride 1,000 mL, IV No Longer [facility] 04/18[facility] [place] 23.4% INJ 256 Rate: Infuse Active 2012 Medic al mEq + sodium as directed, [place] acetate 2 mEq/mL Dosing Weight intravenous 68.182, kg, solution 182 mEq Route: IV, + sterile Total Volume: 1,000 mL, Duration: 30 day, Stop date: 05/17/13 21:35:00, Replace Every: 24 hr LR IV 1,000 mL 1,000 mL, IV No Longer [place] Rate: 100 Active 2012 Medical ml/hr, Infuse Center over: 10 hr, Route: IV, Dosing Weight 68.182 kg, Total Volume: 1,000, Start date: 04/17/13 20:39:00, Duration: 30 day, Stop date: 05/17/13 20:38:00 Versed 50 mg in 50 mg, 50 mL, IV No Longer Luke Glendy NS 50 ml Rate: Titrate Active 2012 Medical (titrate) IV 50 as directed, Jama ter mg Dosing Weight 68.182, kg, Route: IV, Total Volume: 50 ml, Duration: 30 day, Stop date: 05/17/13 20:17:00, Replace Every: 24 hr FENTanyl 1000 1,000 IV No Longer Luke Glendy mcg in 20 mL microgram, 20 Active 2012 Medic al (titrate) IV mL, Rate: [place] 1,000 microgram Titrate as directed, Dosing Weight 68.182, kg, Route: IV, Total Volume: 20 ml, Duration: 30 day, Stop date: 05/17/13 20:17:00, Replace Every: 24 hr FENTanyl - one 100 IVP No Longer Denver William s time ICU bolus microgram, 2 Active 2012 Medi danny dose mL, Route: [place] IVP, Drug form: INJ, ONCE, Dosing Weight 68.182, kg, Start date: 04/17/13 20:16:00, Stop date: 04/17/13 20:16:00 Ancef 1 gm, Route: IVPB No Longer Saqib Glendy IVPB, ONCE, Active 2012 Medical Dosing Weight Center 68.182, kg, Priority: STAT, Start date: 04/17/13 17:49:00, Stop date: 04/17/13 17:49:00 tetanus/diphther 0.5 ml, IM Active Anny William as ia/pertussis, Route: IM, 2012 Medical acel (Tdap) 5 Drug Form: Center units-2.5 INJ, kg, units-18.5 ONCE, Start mcg/0.5 mL date: intramuscular 04/17/13 [place] 17:05:00, Stop date: 04/17/13 17:05:00 ketamine 50 mg, 0.5 IV No Longer Anny 04/17/ [facility] mL, Route: Active 2012 Medical IV, Drug Center form: INJ, ONCE, kg, Start date: 04/17/13 17:03:00, Stop date: 04/17/13 17:03:00 fentanyl 50 microgram, IVP No Longer Anny 04/17[facility] William as 1 mL, Route: Active 2012 Medical IVP, Drug Center form: INJ, ONCE, kg, Priority: STAT, Start date: 04/17/13 17:02:00, Stop date: 04/17/13 17:02:00 Saline Flush 5 ml, Route: IVP No Longer Saqib 04/17[facility] [place] 0.9% IVP, Drug Active 2012 Medical Form: INJ, Center kg, PRN, PRN Line Flush, Administer at least once every 12 hours, Start date: 04/17/13 16:39:00, Stop date: 06/16/13 16:38:00 No Active No Active Active [place] Medications Medications Physicia ns [place] 10-325 MG (Active) Active [facility] Oral Tablet Physicians Allergies, Adverse Reactions, Alerts Substance Category Reaction Severity Reaction Status Date Comments S ource type Reported Not Known [facility] Physicia ns Xanax TABS drug drug Active IN allergy allergy Physicia ns Xanax Assertion Drug Active William as allergy [facility] Allergy drug Allergy Active [facility] Unverified allergy Medic al Center No Known Assertion Drug Medication allergy [facility] Allergies Immunizations Immunization Date Site Status Last Comments Source Given Updated diphtheria/pertu completed [place] [facility] ssis, 3 Medical acel/tetanus Center adult diphtheria/pertu Left completed [place] [facility] ssis, 3 deltoid Medical acel/tetanus Center, adult [place] [facility] Results Order Name Results Value Reference Date Interpretation Comments [place] Range CARDIAC Total CK 210 12 - 191 08/04 ENZYMES /2018 [facility] CARDIAC Troponin-I <0.02 0.00 - 08/04 ENZYMES 0.40 /2018 [facility] CHEM PANEL Glucose Lvl 86 70 - 99 08/04 [facility] CHEM PANEL BUN 12 7 - 22 08/04 [facility] CHEM PANEL Creatinine 1.14 0.50 - 08/04 Lvl 1.40 [place] CHEM PANEL Sodium Lvl 139 135 - 145 08/04 [facility] CHEM PANEL Potassium 3.9 3.5 - 5.1 08/04 Lvl [facility] CHEM PANEL Chloride Lvl 110 95 - 109 08/04 [facility] CHEM PANEL CO2 20 24 - 32 08/04 [facility] CHEM PANEL Calcium Lvl 8.9 8.5 - 10.5 08/04 [place] CHEM PANEL Total 7.8 6.4 - 8.4 08/04 [place] CHEM PANEL Albumin Lvl 3.5 3.5 - 5.0 08/04 [place] CHEM PANEL ALT 34 0 - 65 08/04 [facility] CHEM PANEL AST 30 0 - 37 08/04 [facility] CHEM PANEL Alk Phos 109 39 - 136 08/04 [facility] CHEM PANEL Bili Total 0.3 0.2 - 1.3 08/04 [place] CHEM PANEL eGFR 88 08/04 Comment: The [facility] eGFR is calculated using the CKD-EPI formula. In most young, healthy individuals the eGFR will be >90 mL/min/1.73m2 . The eGFR declines with age. An eGFR of 60-89 may be normal in some populations, particularly the elderly, for whom the CKD-EPI formula has not been extensively validated. Use of the eGFR is not recommended in the following populations:< br/>
Nguyen viduals with unstable creatinine concentration s, including patients and those with serious co-morbid conditions.<b r/>
Patie nts with extremes in muscle mass or diet.

The data above are obtained from the National Kidney Disease Education Program (NKDEP) which additionally recommends that when the eGFR is used in patients with extremes of body mass index for purposes of drug dosing, the eGFR should be multiplied by the estimated BMI. CHEM PANEL AGAP 12.9 10.0 - 08/04. [place] CHEM PANEL B/C Ratio 11 6 - 25 08/04 [place] CHEM PANEL Globulin 4.3 2.7 - 4.2 08/04 [place] CHEM PANEL A/G Ratio 0.8 0.7 - 1.6 08/04 [place] CHEM PANEL Lipase Lvl 135 73 - 393 08/04 [facility] HEMATOLOGY WBC 10.7 3.7 - 10.4 08/04 [facility] HEMATOLOGY RBC 3.87 4.70 - 08/04 MH 6.10 [facility] HEMATOLOGY Hgb 12.7 14.0 - 08/04 MH 18.0 [facility] HEMATOLOGY Hct 37.4 42.0 - 08/04 MH 54.0 [facility] HEMATOLOGY MCV 96.5 80.0 - 08/04 94.0 [facility] HEMATOLOGY MCH 32.9 27.0 - 08/04 MH 31.0 [facility] HEMATOLOGY MCHC 34.1 32.0 - 08/04 MH 36.0 [facility] HEMATOLOGY RDW 13.5 11.5 - 08/04 14.5 [facility] HEMATOLOGY Platelet 315 133 - 450 08/04 [facility] HEMATOLOGY MPV 7.9 7.4 - 10.4 08/04 [facility] HEMATOLOGY Segs 65.4 45.0 - 08/04 MH 75.0 [facility] HEMATOLOGY Lymphocytes 23.5 20.0 - 08/04 40.0 [facility] HEMATOLOGY Monocytes 8.0 2.0 - 12.0 08/04 [place] HEMATOLOGY Eosinophils 1.8 0.0 - 4.0 08/04 [place] HEMATOLOGY Basophils 1.3 0.0 - 1.0 08/04 [facility] HEMATOLOGY Neutrophils 7.0 1.5 - 8.1 08/04 MH # /2018 [facility] HEMATOLOGY Lymphocytes 2.5 1.0 - 5.5 08/04 # /2018 [facility] HEMATOLOGY Monocytes # 0.9 0.0 - 0.8 08/04 [place] HEMATOLOGY Eosinophils 0.2 0.0 - 0.5 08/04 MH # /2018 [facility] HEMATOLOGY Basophils # 0.1 0.0 - 0.2 08/04 [facility] CARDIAC Troponin-I <0.02 0.00 - 0604 ENZYMES 0.40 [facility] ELECTROLYT AGAP 15.0 10.0 - 0604 ES 20.0 [facility] ELECTROLYT CO2 22 24 - 32 06/ ES /2018 [facility] ELECTROLYT Sodium Lvl 138 135 - 145 06 ES [facility] ELECTROLYT Creatinine 1.26 0.50 - 06/04 ES Lvl 1.40 [facility] ELECTROLYT Glucose Lvl 115 70 - 99 / [facility] ELECTROLYT Potassium 4.0 3.5 - 5.1 03/17 ES Lvl /2019 [facility] ELECTROLYT Chloride Lvl 105 95 - 109 03/17 [facility] ELECTROLYT BUN 14 7 - 22 03/17 [facility] ELECTROLYT Calcium Lvl 9.7 8.5 - 10.5 03/17 ES [facility] ELECTROLYT eGFR 78 / Result Comment: The [facility] eGFR is calculated using the CKD-EPI formula. In most young, healthy individuals the eGFR will be >90 mL/min/1.73m2 . The eGFR declines with age. An eGFR of 60-89 may be normal in some populations, particularly the elderly, for whom the CKD-EPI formula has not been extensively validated. Use of the eGFR is not recommended in the following populations:< br/>
Nguyen viduals with unstable creatinine concentration s, including patients and those with serious co-morbid conditions.<b r/>
Patie nts with extremes in muscle mass or diet.

The data above are obtained from the National Kidney Disease Education Program (NKDEP) which additionally recommends that when the eGFR is used in patients with extremes of body mass index for purposes of drug dosing, the eGFR should be multiplied by the estimated BMI. HEMATOLOGY Segs 77.2 45.0 - 03/17 MH 75.0 [facility] HEMATOLOGY Eosinophils 0.2 0.0 - 4.0 03/17 [facility] HEMATOLOGY Lymphocytes 15.0 20.0 - 03/17 MH 40.0 [facility] HEMATOLOGY Monocytes 7.3 2.0 - 12.0 03/17 [facility] HEMATOLOGY Monocytes # 0.8 0.0 - 0.8 03/17 [facility] HEMATOLOGY Lymphocytes 1.6 1.0 - 5.5 03/17 MH [facility] HEMATOLOGY Basophils 0.3 0.0 - 1.0 03/17 [facility] HEMATOLOGY Neutrophils 8.0 1.5 - 8.1 03/17 MH # /2018 [facility] HEMATOLOGY WBC 10.4 3.7 - 10.4 03/17 [facility] HEMATOLOGY Platelet 311 133 - 450 03/17 [facility] HEMATOLOGY RDW 12.5 11.5 - 03/17 MH 14.5 /2018 [facility] HEMATOLOGY MPV 8.3 7.4 - 10.4 03/17 /2018 [facility] HEMATOLOGY RBC 4.80 4.70 - 03/17 MH 6.10 /2018 [facility] HEMATOLOGY Hgb 16.0 14.0 - 03/17 MH 18.0 /2018 [facility] HEMATOLOGY Hct 45.3 42.0 - 03/17 MH 54.0 /2018 [facility] HEMATOLOGY MCV 94.4 80.0 - 03/17 MH 94.0 /2019 [facility] HEMATOLOGY MCH 33.3 27.0 - 03/17 MH 31.0 /2018 [facility] HEMATOLOGY MCHC 35.3 32.0 - 03/17 MH 36.0 [facility] CHEM PANEL Lactic Acid 0.8 0.5 - 2.2 08/31 s [facility] CHEM PANEL Globulin 3.7 2.0 - 4.0 08/31 [facility] CHEM PANEL A/G Ratio 1.1 0.7 - 1.6 08/31 [facility] CHEM PANEL B/C Ratio 13 6 - 25 08/31 [facility] CHEM PANEL AGAP 12.6 10.0 - 08/31 20. [facility] CHEM PANEL AST 21 0 - 37 08/31 [facility] CHEM PANEL Alk Phos 77 39 - 136 08/31 [facility] CHEM PANEL ALT 22 0 - 65 08/31 [facility] CHEM PANEL Bili Total 0.2 0.2 - 1.3 08/31 [facility] CHEM PANEL Albumin Lvl 4.0 3.5 - 5.0 08/31 s [facility] CHEM PANEL Total 7.7 6.4 - 8.4 08/31 [facility] CHEM PANEL Calcium Lvl 8.9 8.5 - 10.5 08/31 [facility] CHEM PANEL Sodium Lvl 138 135 - 145 08/31 [facility] CHEM PANEL Glucose Lvl 89 70 - 99 08/31 <sup>2</sup>I nterpretive Medical Data: Adult Center reference range values reflect the clinical guidelines
of the [place] [employer]. CHEM PANEL BUN 17 7 - 22 11/18 [facility] CHEM PANEL Creatinine 1.3 0.5 - 1.4 08/31 [facility] CHEM PANEL Potassium 3.6 3.5 - 5.1 08/31 [facility] CHEM PANEL Chloride Lvl 102 95 - 109 08/31 [facility] CHEM PANEL CO2 27 24 - 32 08/31 [facility] CHEM PANEL eGFR 77 08/31 <sup>1</sup>R [facility] Comment: The Center eGFR is calculated using the CKD-EPI formula. In most young, healthy individuals the eGFR will be >90 mL/min/1.73m2 . The eGFR declines with age. An eGFR of 60-89 may be normal in some populations, particularly the elderly, for whom the CKD-EPI formula has not been extensively validated. Use of the eGFR is not recommended in the following populations:& lt;br/>
I ndividuals with unstable creatinine concentration s, including patients and those with serious co-morbid conditions.<b r/>
Patie nts with extremes in muscle mass or diet.

The data above are obtained from the National Kidney Disease Education Program (NKDEP) which additionally recommends that when the eGFR is used in patients with extremes of body mass index for purposes of drug dosing, the eGFR should be multiplied by the estimated BMI. HEMATOLOGY Atypical 0.0 <=0.0 % 08/31 Lymphs [facility] HEMATOLOGY Monocytes 10.0 2.0 - 12.0 08/31 [facility] HEMATOLOGY Eosinophils 4.0 0.0 - 4.0 08/31 [facility] HEMATOLOGY Segs-Bands # 3.9 1.5 - 8.1 08/31 [facility] HEMATOLOGY Lymphocytes 2.4 1.0 - 5.5 08/31 s [facility] HEMATOLOGY Monocytes # 0.7 0.0 - 0.8 08/31 [facility] HEMATOLOGY Tot Cell Ct 100 08/31 [facility] HEMATOLOGY Anisocyte 1+ None Seen 08/31 *ABN* /2013 Medical (08/31/14 1:32 AM) Cente r HEMATOLOGY Plt Morph Normal 08/31 [facility] (08/31/14 1:32 AM) [facility] HEMATOLOGY Bands 0.0 0.0 - 11.0 08/31 [facility] HEMATOLOGY Lymphocytes 33.0 20.0 - 08/31 [place] 40.0 /2013 [facility] HEMATOLOGY Eosinophils 0.3 0.0 - 0.5 08/31 a s # [facility] HEMATOLOGY Segs 53.0 45.0 - 08/31 [place] 75.0 [facility] HEMATOLOGY RBC 4.46 4.70 - 08/31 [place] 6.10 [facility] HEMATOLOGY WBC 7.4 3.7 - 10.4 08/31 [facility] HEMATOLOGY RDW 12.2 11.5 - 08/31 [place] 14. [facility] HEMATOLOGY MPV 8.5 7.4 - 10.4 08/31 [facility] HEMATOLOGY Platelet 221 133 - 450 08/31 [facility] HEMATOLOGY MCV 91.5 80.0 - 08/31 [place] 94.0 [facility] HEMATOLOGY MCHC 32.8 32.0 - 08/31 [place] 36.0 [facility] HEMATOLOGY MCH 30.0 27.0 - 08/31 [place] 31.0 [facility] HEMATOLOGY Hct 40.8 42.0 - 08/31 [place] 54.0 [facility] HEMATOLOGY Hgb 13.4 14.0 - 08/31 [place] 18.0 [facility] CHEM PANEL Amylase Lvl 57 25 - 115 06/04 [facility] CHEM PANEL Lipase Lvl 110 73 - 393 06/04 [facility] CHEM PANEL Bili 0.5 0.0 - 1.0 06/04 Indirect [facility] CHEM PANEL Bili Total 0.6 0.2 - 1.3 06/04 [facility] CHEM PANEL Bili Direct 0.1 0.0 - 0.3 06/04 s [facility] CHEM PANEL ALT 34 0 - 65 06/04 [facility] CHEM PANEL AST 41 0 - 37 06/04 [facility] CHEM PANEL Alk Phos 86 39 - 136 06/04 [facility] CHEM PANEL A/G Ratio 0.9 0.7 - 1.6 06/04 [facility] CHEM PANEL Albumin Lvl 3.4 3.5 - 5.0 06/04 [facility] CHEM PANEL Globulin 3.6 2.0 - 4.0 06/04 [facility] CHEM PANEL Total 7.0 6.4 - 8.4 06/04 [facility] CHEM PANEL Phosphorus 4.7 2.5 - 4.5 06/04 [facility] CHEM PANEL Magnesium 1.4 1.8 - 2.4 06/04 [facility] CHEM PANEL eGFR 121 06/04 <sup>1</sup>R esult Medical Comment: The Center eGFR is calculated using the CKD-EPI formula. In most young, healthy individuals the eGFR will be >90 mL/min/1.73m2 . The eGFR declines with age. An eGFR of 60-89 may be normal in some populations, particularly the elderly, for whom the CKD-EPI formula has not been extensively validated. Use of the eGFR is not recommended in the following populations:& lt;br/>
I ndividuals with unstable creatinine concentration s, including patients and those with serious co-morbid conditions.<b r/>
Patie nts with extremes in muscle mass or diet.

The data above are obtained from the National Kidney Disease Education Program (NKDEP) which additionally recommends that when the eGFR is used in patients with extremes of body mass index for purposes of drug dosing, the eGFR should be multiplied by the estimated BMI. CHEM PANEL Calcium Lvl 9.2 8.5 - 10.5 06/04 [facility] CHEM PANEL Sodium Lvl 137 135 - 145 06/04 [facility] CHEM PANEL BUN 8 7 - 22 06/04 [facility] CHEM PANEL Creatinine 0.9 0.5 - 1.4 06/04 [facility] CHEM PANEL Potassium 4.1 3.5 - 5.1 06/04 [facility] CHEM PANEL Chloride Lvl 100 95 - 109 06/04 [facility] CHEM PANEL CO2 25 24 - 32 06/04 [facility] CHEM PANEL Glucose Lvl 84 70 - 99 06/04 <sup>4</sup>I nterpretive Medical Data: Adult Center reference range values reflect the clinical guidelines
of the [place] [employer]. CHEM PANEL AGAP 16.1 10.0 - 06/04 20.0 [facility] HEMATOLOGY Monocytes # 1.1 0.0 - 0.8 06/04 [facility] HEMATOLOGY Basophils 0.2 0.0 - 1.0 06/04 [facility] HEMATOLOGY Segs-Bands # 5.8 1.5 - 8.1 06/04 [facility] HEMATOLOGY Lymphocytes 1.8 1.0 - 5.5 06/04 s [facility] HEMATOLOGY Lymphocytes 20.1 20.0 - 06/04 [place] 40.0 [facility] HEMATOLOGY Monocytes 12.0 2.0 - 12.0 06/04 [facility] HEMATOLOGY Segs 65.2 45.0 - 06/04 75.0 [facility] HEMATOLOGY Eosinophils 0.2 0.0 - 0.5 06/04 s [facility] HEMATOLOGY Eosinophils 2.5 0.0 - 4.0 06/04 [facility] HEMATOLOGY MPV 7.8 7.4 - 10.4 06/04 [facility] HEMATOLOGY Hct 34.7 42.0 - 06/04 54.0 [facility] HEMATOLOGY MCV 92.8 80.0 - 06/04 94.0 [facility] HEMATOLOGY Platelet 238 133 - 450 06/04 [facility] HEMATOLOGY MCHC 34.4 32.0 - 06/04 36.0 [facility] HEMATOLOGY RDW 14.0 11.5 - 06/04 14.5 [facility] HEMATOLOGY MCH 31.9 27.0 - 06/04 31.0 [facility] HEMATOLOGY Hgb 11.9 14.0 - 06/04 18.0 [facility] HEMATOLOGY RBC 3.73 4.70 - 06/04 [place] 6.10 [facility] HEMATOLOGY WBC 8.9 3.7 - 10.4 06/04 [facility] CHEM PANEL Lipase Lvl 76 73 - 393 06/03 [facility] CHEM PANEL Magnesium 1.6 1.8 - 2.4 06/03 [facility] Lvl /2013 [facility] CHEM PANEL Bili 0.3 0.0 - 1.0 06/03 [facility] Indirect [facility] CHEM PANEL Globulin 3.4 2.0 - 4.0 06/03 [facility] CHEM PANEL A/G Ratio 1.0 0.7 - 1.6 06/03 [facility] CHEM PANEL Bili Direct 0.1 0.0 - 0.3 06/03 s [facility] CHEM PANEL ALT 33 0 - 65 06/03 [facility] CHEM PANEL AST 40 0 - 37 06/03 [facility] CHEM PANEL Bili Total 0.4 0.2 - 1.3 06/03 [facility] CHEM PANEL Alk Phos 75 39 - 136 06/03 [facility] CHEM PANEL Total 6.7 6.4 - 8.4 06/03 [facility] Protein [facility] CHEM PANEL Albumin Lvl 3.3 3.5 - 5.0 06/03 s [facility] CHEM PANEL Phosphorus 3.5 2.5 - 4.5 06/03 [facility] ELECTROLYT AGAP 12.8 10.0 - 06/03 [facility] ES 20.0 [facility] ELECTROLYT eGFR 95 06/03 <sup>2</sup>R [facility] s esult Medical Comment: The Center eGFR is calculated using the CKD-EPI formula. In most young, healthy individuals the eGFR will be >90 mL/min/1.73m2 . The eGFR declines with age. An eGFR of 60-89 may be normal in some populations, particularly the elderly, for whom the CKD-EPI formula has not been extensively validated. Use of the eGFR is not recommended in the following populations:& lt;br/>
I ndividuals with unstable creatinine concentration s, including patients and those with serious co-morbid conditions.<b r/>
Patie nts with extremes in muscle mass or diet.

The data above are obtained from the National Kidney Disease Education Program (NKDEP) which additionally recommends that when the eGFR is used in patients with extremes of body mass index for purposes of drug dosing, the eGFR should be multiplied by the estimated BMI. ELECTROLYT Calcium Lvl 8.7 8.5 - 10.5 06/03 as [facility] ELECTROLYT Chloride Lvl 102 95 - 109 06/03 [place] [facility] ELECTROLYT Potassium 3.8 3.5 - 5.1 06/03 ES [facility] ELECTROLYT CO2 27 24 - 32 06/03 [facility] ELECTROLYT BUN 6 7 - 22 06/03 [facility] ELECTROLYT Sodium Lvl 138 135 - 145 06/03 [facility] ELECTROLYT Creatinine 1.1 0.5 - 1.4 06/03 [facility] ES Lvl [facility] ELECTROLYT Glucose Lvl 89 70 - 99 06/03 <sup>5</sup>I nterpretive Medical Data: Adult Center reference range values reflect the clinical guidelines
of the [place] [employer]. HEMATOLOGY RBC 3.54 4.70 - 06/03 6.10 [facility] HEMATOLOGY WBC 9.4 3.7 - 10.4 06/03 [facility] HEMATOLOGY Hgb 11.2 14.0 - 06/03 18.0 [facility] HEMATOLOGY Platelet 190 133 - 450 06/03 [facility] HEMATOLOGY RDW 14.3 11.5 - 06/03 14. [facility] HEMATOLOGY MPV 7.7 7.4 - 10.4 06/03 [facility] HEMATOLOGY MCHC 34.2 32.0 - 06/03 36.0 [facility] HEMATOLOGY MCV 92.8 80.0 - 06/03 94.0 [facility] HEMATOLOGY Hct 32.9 42.0 - 06/03 [place] 54.0 [facility] HEMATOLOGY MCH 31.7 27.0 - 06/03 [place] 31.0 [facility] HEMATOLOGY Monocytes # 1.1 0.0 - 0.8 06/03 [facility] HEMATOLOGY Eosinophils 0.2 0.0 - 0.5 06/03 [place] [facility] HEMATOLOGY Basophils 0.2 0.0 - 1.0 06/03 [facility] HEMATOLOGY Segs-Bands # 6.5 1.5 - 8.1 06/03 [facility] HEMATOLOGY Lymphocytes 1.6 1.0 - 5.5 06/03 s # [facility] HEMATOLOGY Lymphocytes 17.1 20.0 - 06/03 40.0 [facility] HEMATOLOGY Eosinophils 2.3 0.0 - 4.0 06/03 [facility] HEMATOLOGY Monocytes 11.3 2.0 - 12.0 06/03 [facility] HEMATOLOGY Segs 69.1 45.0 - 06/03 75.0 [facility] CHEM PANEL Total 7.1 6.4 - 8.4 06/02 [facility] CHEM PANEL ALT 43 0 - 65 06/02 [facility] CHEM PANEL Albumin Lvl 4.0 3.5 - 5.0 06/02 [facility] CHEM PANEL A/G Ratio 1.3 0.7 - 1.6 06/02 [facility] CHEM PANEL Globulin 3.1 2.0 - 4.0 06/02 [facility] CHEM PANEL Alk Phos 86 39 - 136 06/02 [facility] CHEM PANEL Bili Total 0.5 0.2 - 1.3 06/02 [facility] CHEM PANEL AST 49 0 - 37 06/02 [facility] CHEM PANEL Bili Direct 0.1 0.0 - 0.3 06/02 [facility] CHEM PANEL Bili 0.4 0.0 - 1.0 06/02 [facility] CHEM PANEL Lipase Lvl 101 73 - 393 06/02 [facility] CHEM PANEL eGFR 77 06/02 <sup>3</sup>R [facility] Medical Comment: The Center eGFR is calculated using the CKD-EPI formula. In most young, healthy individuals the eGFR will be >90 mL/min/1.73m2 . The eGFR declines with age. An eGFR of 60-89 may be normal in some populations, particularly the elderly, for whom the CKD-EPI formula has not been extensively validated. Use of the eGFR is not recommended in the following populations:& lt;br/>
I ndividuals with unstable creatinine concentration s, including patients and those with serious co-morbid conditions.<b r/>
Patie nts with extremes in muscle mass or diet.

The data above are obtained from the National Kidney Disease Education Program (NKDEP) which additionally recommends that when the eGFR is used in patients with extremes of body mass index for purposes of drug dosing, the eGFR should be multiplied by the estimated BMI. CHEM PANEL Potassium 4.3 3.5 - 5.1 06/02 [facility] CHEM PANEL Chloride Lvl 105 95 - 109 06/02 [facility] CHEM PANEL Calcium Lvl 9.0 8.5 - 10.5 06/02 [facility] CHEM PANEL CO2 22 24 - 32 06/02 [facility] CHEM PANEL BUN 11 7 - 22 06/02 [facility] CHEM PANEL Sodium Lvl 138 135 - 145 06/02 [facility] CHEM PANEL Creatinine 1.3 0.5 - 1.4 06/02 l [facility] CHEM PANEL Glucose Lvl 99 70 - 99 06/02 <sup>6</sup>I nterpretive Medical Data: Adult Center reference range values reflect the clinical guidelines
of the [employer]. CHEM PANEL AGAP 15.3 10.0 - 06/02 20.0 [facility] HEMATOLOGY Eosinophils 0.5 0.0 - 4.0 06/02 [facility] HEMATOLOGY Basophils 0.2 0.0 - 1.0 06/02 [facility] HEMATOLOGY Segs-Bands # 10.5 1.5 - 8.1 06/02 [facility] HEMATOLOGY Eosinophils 0.1 0.0 - 0.5 06/02 a s # [facility] HEMATOLOGY Lymphocytes 13.9 20.0 - 06/02 [place] 40.0 [facility] HEMATOLOGY Monocytes 9.0 2.0 - 12.0 06/02 [facility] HEMATOLOGY Segs 76.4 45.0 - 06/02 [place] 75.0 [facility] HEMATOLOGY Lymphocytes 1.9 1.0 - 5.5 06/02 a s # [facility] HEMATOLOGY Monocytes # 1.2 0.0 - 0.8 06/02 [facility] HEMATOLOGY MPV 8.0 7.4 - 10.4 06/02 [facility] HEMATOLOGY RDW 14.0 11.5 - 06/02 [place] 14.5 [facility] HEMATOLOGY Platelet 233 133 - 450 06/02 /2013 [facility] HEMATOLOGY MCHC 33.7 32.0 - 06/02 [place] 36.0 /2013 [facility] HEMATOLOGY MCV 94.2 80.0 - 06/02 [place] 94.0 /2013 [facility] HEMATOLOGY MCH 31.8 27.0 - 06/02 [place] 31.0 /2013 [facility] HEMATOLOGY Hct 36.3 42.0 - 06/02 [place] 54.0 /2013 [facility] HEMATOLOGY Hgb 12.3 14.0 - 06/02 [place] 18.0 [facility] HEMATOLOGY WBC 13.8 3.7 - 10.4 06/02 [facility] HEMATOLOGY RBC 3.86 4.70 - 06/02 [facility] 6.10 [facility] HEMATOLOGY INR 1.04 0.85 - 06/01 <sup>7</sup>I Sarmad s 1. nterpretive Medical Data: Center RECOMMENDED RANGES FOR PROTIME INR:
2.0-3.0 for most medical and surgical thromboemboli c states.
2.5-3.5 for artificial heart valves and recurrent embolism.<br/ >
INR SHOULD BE USED ONLY FOR PATIENTS ON STABLE ANTICOAGULANT THERAPY. HEMATOLOGY PT 13.5 12.0 - 06/01 [facility] 14.7 [facility] HEMATOLOGY PTT 25.6 22.9 - 06/01 <sup>8</sup>I Sarmad s 35.8 nterpretive Medical Data: [facility] Therapeutic Range: 57 - 92 Seconds BLOOD BANK FFP product Product available 06/01 [facility] RESULTS (06/01/14 6:20 AM) [facility] BLOOD BANK RBC product Product available 06/01 [facility] RESULTS (06/01/14 6:20 AM) /2013 [facility] BLOOD BANK ABO/Rh A POS 06/01 [facility] RESULTS /2013 [facility] BLOOD BANK Antibody Negative 06/01 [facility] RESULTS Scrn (06/01/14 6:20 AM) /2013 [facility] CHEM PANEL Amylase Lvl 68 25 - 115 06/01 /2013 [facility] CHEM PANEL Lipase Lvl 740 73 - 393 05/13 [facility] CHEM PANEL Alk Phos 89 39 - 136 05/13 [facility] CHEM PANEL Bili Total 0.2 0.2 - 1.3 05/13 [facility] CHEM PANEL Bili Direct 0.1 0.0 - 0.3 05/13 [facility] CHEM PANEL ALT 25 0 - 65 05/13 [facility] CHEM PANEL Albumin Lvl 3.4 3.5 - 5.0 05/13 [facility] CHEM PANEL AST 14 0 - 37 05/13 [facility] CHEM PANEL Total 7.1 6.4 - 8.4 05/13 [facility] CHEM PANEL Globulin 3.7 2.0 - 4.0 05/13 [facility] CHEM PANEL A/G Ratio 0.9 0.7 - 1.6 05/13 [facility] CHEM PANEL Bili 0.1 0.0 - 1.0 05/13 [facility] ELECTROLYT AGAP 10.2 10.0 - 05/13 [place] 20.0 [facility] ELECTROLYT eGFR 106 05/13 <sup>1</sup>R esult Medical Comment: The [place] eGFR is calculated using the CKD-EPI formula. In most young, healthy individuals the eGFR will be >90 mL/min/1.73m2 . The eGFR declines with age. An eGFR of 60-89 may be normal in some populations, particularly the elderly, for whom the CKD-EPI formula has not been extensively validated. Use of the eGFR is not recommended in the following populations:& lt;br/>
I ndividuals with unstable creatinine concentration s, including patients and those with serious co-morbid conditions.<b r/>
Patie nts with extremes in muscle mass or diet.

The data above are obtained from the National Kidney Disease Education Program (NKDEP) which additionally recommends that when the eGFR is used in patients with extremes of body mass index for purposes of drug dosing, the eGFR should be multiplied by the estimated BMI. ELECTROLYT CO2 26 24 - 32 05/13 [facility] ELECT[facility]T Calcium Lvl 8.2 8.5 - 10.5 05/13 [facility] ELECTROLYT Creatinine 1.0 0.5 - 1.4 05/13 [facility] ES [facility] ELECTROLYT Glucose Lvl 121 70 - 99 05/13 <sup>2</sup>I nterpretive Medical Data: Adult Center reference range values reflect the clinical guidelines
of the [place] [employer]. ELECTROLYT Sodium Lvl 139 135 - 145 05/13 [facility] ELECTROLYT BUN 9 7 - 22 05/13 [facility] ELECTROLYT Chloride Lvl 106 95 - 109 05/13 [place] [facility] ELECTROLYT Potassium 3.2 3.5 - 5.1 05/13 [facility] ES [facility] HEMATOLOGY Platelet 246 133 - 450 05/13 [facility] HEMATOLOGY RDW 13.8 11.5 - 05/13 14.5 [facility] HEMATOLOGY MPV 8.0 7.4 - 10.4 05/13 [facility] HEMATOLOGY RBC 3.85 4.70 - 05/13 [place] 6.10 [facility] HEMATOLOGY WBC 10.7 3.7 - 10.4 05/13 [facility] HEMATOLOGY Hct 35.2 42.0 - 05/13 [place] 54.0 /2013 [facility] HEMATOLOGY Hgb 12.3 14.0 - 05/13 [place] 18.0 [facility] HEMATOLOGY MCHC 35.0 32.0 - 05/13 [place] 36.0 [facility] HEMATOLOGY MCH 32.0 27.0 - 05/13 [place] 31.0 [facility] HEMATOLOGY MCV 91.4 80.0 - 05/13 [place] 94.0 [facility] HEMATOLOGY Segs 57.7 45.0 - 05/13 [place] 75.0 [facility] HEMATOLOGY Lymphocytes 31.0 20.0 - 05/13 [place] 40.0 [facility] HEMATOLOGY Basophils # 0.1 0.0 - 0.2 05/13 s [facility] HEMATOLOGY Eosinophils 0.2 0.0 - 0.5 05/13 [place] /2013 [facility] HEMATOLOGY Basophils 1.3 0.0 - 1.0 05/13 [facility] HEMATOLOGY Monocytes 7.8 2.0 - 12.0 05/13 [facility] HEMATOLOGY Segs-Bands # 6.3 1.5 - 8.1 05/13 [facility] HEMATOLOGY Eosinophils 2.2 0.0 - 4.0 05/13 [facility] HEMATOLOGY Monocytes # 0.8 0.0 - 0.8 05/13 [facility] HEMATOLOGY Lymphocytes 3.3 1.0 - 5.5 05/13 s [facility] CHEM PANEL Magnesium 1.8 1.8 - 2.4 05/06 [facility] CHEM PANEL eGFR 121 05/06 <sup>1</sup>R esult Medical Comment: The Center eGFR is calculated using the CKD-EPI formula. In most young, healthy individuals the eGFR will be >90 mL/min/1.73m2 . The eGFR declines with age. An eGFR of 60-89 may be normal in some populations, particularly the elderly, for whom the CKD-EPI formula has not been extensively validated. Use of the eGFR is not recommended in the following populations:& lt;br/>
I ndividuals with unstable creatinine concentration s, including patients and those with serious co-morbid conditions.<b r/>
Patie nts with extremes in muscle mass or diet.

The data above are obtained from the National Kidney Disease Education Program (NKDEP) which additionally recommends that when the eGFR is used in patients with extremes of body mass index for purposes of drug dosing, the eGFR should be multiplied by the estimated BMI. CHEM PANEL Creatinine 0.9 0.5 - 1.4 05/06 [facility] CHEM PANEL Sodium Lvl 138 135 - 145 05/06 [facility] CHEM PANEL Glucose Lvl 93 70 - 99 05/06 <sup>3</sup>I nterpretive Medical Data: Adult Center reference range values reflect the clinical guidelines
of the [place] [employer]. CHEM PANEL BUN 13 7 - 22 05/06 [facility] CHEM PANEL Calcium Lvl 9.1 8.5 - 10.5 05/06 [facility] CHEM PANEL Chloride Lvl 106 95 - 109 05/06 [facility] CHEM PANEL CO2 21 24 - 32 05/06 [facility] CHEM PANEL Potassium 4.1 3.5 - 5.1 05/06 [facility] CHEM PANEL AGAP 15.1 10.0 - 05/06 20.0 [facility] CHEM PANEL Phosphorus 4.7 2.5 - 4.5 05/06 [facility] HEMATOLOGY RBC 3.93 4.70 - 05/06 [place] 6.10 [facility] HEMATOLOGY WBC 7.6 3.7 - 10.4 05/06 [facility] HEMATOLOGY Hgb 12.4 14.0 - 05/06 18.0 [facility] HEMATOLOGY MCHC 34.0 32.0 - 05/06 36.0 [facility] HEMATOLOGY Platelet 330 133 - 450 05/06 [facility] HEMATOLOGY MPV 7.5 7.4 - 10.4 05/06 [facility] HEMATOLOGY RDW 14.2 11.5 - 05/06 14. [facility] HEMATOLOGY Hct 36.5 42.0 - 05/06 54.0 [facility] HEMATOLOGY MCH 31.6 27.0 - 05/06 31.0 [facility] HEMATOLOGY MCV 92.9 80.0 - 05/06 94.0 [facility] HEMATOLOGY Segs 49.6 45.0 - 05/06 75.0 [facility] HEMATOLOGY Eosinophils 3.8 0.0 - 4.0 05/06 [facility] HEMATOLOGY Basophils 0.4 0.0 - 1.0 05/06 [facility] HEMATOLOGY Monocytes 7.8 2.0 - 12.0 05/06 [facility] HEMATOLOGY Lymphocytes 38.4 20.0 - 05/06 40.0 [facility] HEMATOLOGY Lymphocytes 2.9 1.0 - 5.5 05/06 [facility] HEMATOLOGY Monocytes # 0.6 0.0 - 0.8 05/06 [facility] HEMATOLOGY Segs-Bands # 3.8 1.5 - 8.1 05/06 [facility] HEMATOLOGY Eosinophils 0.3 0.0 - 0.5 05/06 [place] # /2013 [facility] CHEM PANEL Lipase Lvl 297 73 - 393 05/06 [facility] CHEM PANEL Amylase Lvl 105 25 - 115 05/06 [facility] DRUG U Methadone Negative Negative 05/05 [place] SCREEN Scr *NA* /2013 Medical (05/05/14 2:00 PM) Center DRUG U Propoxyph Negative Negative 05/05 [place] SCREEN Scr *NA* Medical (05/05/14 2:00 PM) Center DRUG U Amanda Scr Negative Negative 05/05 [place] SCREEN *NA* /2013 Medical (05/05/14 2:00 PM) Center DRUG U Amph Scr Negative Negative 05/05 [place] SCREEN *NA* Medical (05/05/14 2:00 PM) Center DRUG U Cannab Scr Negative Negative 05/05 [place] SCREEN *NA* Medical (05/05/14 2:00 PM) Center DRUG U Benzodia Positive Negative 05/05 [facility] SCREEN Scr *ABN* /2013 Medical (05/05/14 2:00 PM) Center DRUG U Cocaine Negative Negative 05/05 [facility] SCREEN Scr *NA* /2013 Medical (05/05/14 2:00 PM) Center DRUG U Phencyc Negative Negative 05/05 [facility] SCREEN Scr *NA* Medical (05/05/14 2:00 PM) Center DRUG U Opiate Scr Positive Negative 05/05 [facility] SCREEN *ABN* /2013 Medical (05/05/14 2:00 PM) Center DRUG UDS Note See Note 5 05/05 <sup>5</sup>I [place] as SCREEN (05/05/14 2:00 PM) /2013 nterpretive Me dical Data: Drugs Center reported as positive have not been confirmed by a second
sc thod and should be used for medical purposes only. To order
con firmation, contact laboratory.<b r/>
not e: Below are cut-off concentration s for all urine drugs of
abuse performed in the laboratory. Some drugs listed in the table
may not be included in this panel.
<b r/>Descriptio n Cut-off concentration
----- ------
Am phetamine 1000 ng/mL
Bar biturates 200 ng/mL
Sanjay zodiazepines 300 ng/mL
Marvin rob metabolites 300 ng/mL
Opi ates 300 ng/mL
Phencyclidine 25 ng/mL
Pro poxyphene 300 ng/mL
Marijuana metabolites 50 ng/mL
Met hadone 300 ng/mL
Urine alcohol 20 mg/dL CHEM PANEL Lactic Acid 2.3 0.5 - 2.2 05/05 [facility] CHEM PANEL Bili Total 0.2 0.2 - 1.3 05/05 [facility] CHEM PANEL Alk Phos 113 39 - 136 05/05 [facility] CHEM PANEL AST 22 0 - 37 05/05 [facility] CHEM PANEL ALT 31 0 - 65 05/05 [facility] CHEM PANEL Total 9.4 6.4 - 8.4 05/05 [facility] CHEM PANEL Albumin Lvl 4.3 3.5 - 5.0 05/05 [facility] CHEM PANEL Potassium 3.1 3.5 - 5.1 05/05 [facility] CHEM PANEL Chloride Lvl 104 95 - 109 05/05 [facility] CHEM PANEL CO2 23 24 - 32 05/05 [facility] CHEM PANEL Calcium Lvl 9.4 8.5 - 10.5 05/05 [facility] CHEM PANEL Creatinine 1.1 0.5 - 1.4 05/05 [facility] CHEM PANEL BUN 15 7 - 22 05/05 [facility] CHEM PANEL Sodium Lvl 138 135 - 145 05/05 [facility] CHEM PANEL Glucose Lvl 102 70 - 99 05/05 <sup>4</sup>I nterpretive Medical Data: Adult Center reference range values reflect the clinical guidelines
of the [place] [employer]. CHEM PANEL eGFR 95 05/05 <sup>2</sup>[facility] [place] [facility] Comment: The Center eGFR is calculated using the CKD-EPI formula. In most young, healthy individuals the eGFR will be >90 mL/min/1.73m2 . The eGFR declines with age. An eGFR of 60-89 may be normal in some populations, particularly the elderly, for whom the CKD-EPI formula has not been extensively validated. Use of the eGFR is not recommended in the following populations:& lt;br/>
I ndividuals with unstable creatinine concentration s, including patients and those with serious co-morbid conditions.<b r/>
Patie nts with extremes in muscle mass or diet.

The data above are obtained from the National Kidney Disease Education Program (NKDEP) which additionally recommends that when the eGFR is used in patients with extremes of body mass index for purposes of drug dosing, the eGFR should be multiplied by the estimated BMI. CHEM PANEL Globulin 5.1 2.0 - 4.0 05/05 [facility] CHEM PANEL A/G Ratio 0.8 0.7 - 1.6 05/05 [facility] CHEM PANEL AGAP 14.1 10.0 - 05/05 20.0 [facility] CHEM PANEL B/C Ratio 14 6 - 25 05/05 [facility] HEMATOLOGY WBC 12.9 3.7 - 10.4 05/05 [facility] HEMATOLOGY RBC 4.19 4.70 - 05/05 [place] 6.10 [facility] HEMATOLOGY MCV 90.2 80.0 - 05/05 [place] 94.0 [facility] HEMATOLOGY Hgb 12.9 14.0 - 05/05 [place] 18.0 [facility] HEMATOLOGY Hct 37.8 42.0 - 05/05 [place] 54.0 [facility] HEMATOLOGY RDW 12.9 11.5 - 05/05 [place] 14.5 [facility] HEMATOLOGY MCHC 34.2 32.0 - 05/05 [place] 36.0 [facility] HEMATOLOGY MCH 30.9 27.0 - 05/05 [place] 31.0 [facility] HEMATOLOGY Platelet 506 133 - 450 05/05 [facility] HEMATOLOGY MPV 7.6 7.4 - 10.4 05/05 [facility] HEMATOLOGY Plt Morph Normal 05/05 [facility] (05/05/14 2:33 AM) [facility] HEMATOLOGY Anisocyte 1+ None Seen 05/05 [facility] *ABN* /2013 Medical (05/05/14 2:33 AM) [place] HEMATOLOGY Segs 66.3 45.0 - 05/05 [place] 75.0 [facility] HEMATOLOGY Lymphocytes 26.2 20.0 - 05/05 [place] 40.0 [facility] HEMATOLOGY Basophils 0.0 0.0 - 1.0 05/05 [facility] HEMATOLOGY Monocytes 6.8 2.0 - 12.0 05/05 [facility] HEMATOLOGY Eosinophils 0.7 0.0 - 4.0 05/05 [place] [facility] HEMATOLOGY Monocytes # 0.9 0.0 - 0.8 05/05 [place] [facility] HEMATOLOGY Segs-Bands # 8.5 1.5 - 8.1 05/05 [place] [facility] HEMATOLOGY Lymphocytes 3.4 1.0 - 5.5 05/05 [place] # [facility] HEMATOLOGY Eosinophils 0.1 0.0 - 0.5 05/05 [place] # [facility] HEMATOLOGY Basophils # 0.0 0.0 - 0.2 05/05 a s [facility] BLOOD BANK ABO/Rh A POS 04/21 [facility] RESULTS /2013 [facility] BLOOD BANK Antibody Negative 04/21 [facility] RESULTS Scrn (04/21/14 7:10 AM) [facility] CHEM PANEL Magnesium 1.6 1.8 - 2.4 02/08 [facility] Lvl /2013 [facility] CHEM PANEL Phosphorus 4.0 2.5 - 4.5 02/08 [facility] CHEM PANEL A/G Ratio 0.9 0.7 - 1.6 02/08 [facility] CHEM PANEL Globulin 3.9 2.0 - 4.0 02/08 [facility] CHEM PANEL B/C Ratio 13 6 - 25 02/08 [facility] CHEM PANEL AGAP 15.6 10.0 - 02/08 [place] 20.0 [facility] CHEM PANEL Bili Total 0.3 0.2 - 1.3 02/08 [facility] CHEM PANEL Alk Phos 96 39 - 136 02/08 [facility] CHEM PANEL AST 14 0 - 37 02/08 [facility] CHEM PANEL ALT 22 0 - 65 02/08 [facility] CHEM PANEL Albumin Lvl 3.4 3.5 - 5.0 02/08 [facility] CHEM PANEL Total 7.3 6.4 - 8.4 02/08 [facility] CHEM PANEL Calcium Lvl 8.7 8.5 - 10.5 02/08 [facility] CHEM PANEL BUN 12 7 - 22 02/08 [facility] CHEM PANEL Glucose Lvl 91 70 - 99 02/08 <sup>5</sup>I nterpretive Medical Data: [facility] Center reference range values reflect the clinical guidelines
of the [employer]. CHEM PANEL CO2 26 24 - 32 02/08 [facility] CHEM PANEL Chloride Lvl 103 95 - 109 02/08 [facility] CHEM PANEL Potassium 3.6 3.5 - 5.1 02/08 [facility] CHEM PANEL Sodium Lvl 141 135 - 145 02/08 [facility] CHEM PANEL Creatinine 0.9 0.5 - 1.4 02/08 [facility] CHEM PANEL eGFR 122 02/08 <sup>2</sup>R esult Medical Comment: The Center eGFR is calculated using the CKD-EPI formula. In most young, healthy individuals the eGFR will be >90 mL/min/1.73m2 . The eGFR declines with age. An eGFR of 60-89 may be normal in some populations, particularly the elderly, for whom the CKD-EPI formula has not been extensively validated. Use of the eGFR is not recommended in the following populations:& lt;br/>
I ndividuals with unstable creatinine concentration s, including patients and those with serious co-morbid conditions.<b r/>
Patie nts with extremes in muscle mass or diet.

The data above are obtained from the National Kidney Disease Education Program (NKDEP) which additionally recommends that when the eGFR is used in patients with extremes of body mass index for purposes of drug dosing, the eGFR should be multiplied by the estimated BMI. ELECTROLYT AGAP 15.6 10.0 - 02/08 [facility] 20.0 [facility] ELECTROLYT Calcium Lvl 8.7 8.5 - 10.5 02/08 [facility] ELECTROLYT CO2 26 24 - 32 02/08 [facility] ELECTROLYT Chloride Lvl 103 95 - 109 02/08 [facility] ELECTROLYT Potassium 3.6 3.5 - 5.1 02/08 [facility] ELECTROLYT Sodium Lvl 141 135 - 145 02/08 [facility] ELECTROLYT Creatinine 0.9 0.5 - 1.4 02/08 [facility] [place] [facility] ELECTROLYT BUN 12 7 - 22 02/08 [facility] ELECTROLYT Glucose Lvl 91 70 - 99 02/08 <sup>4</sup>I nterpretive Medical Data: Adult Center reference range values reflect the clinical guidelines
of the [employer]. ELECTROLYT eGFR 122 02/08 <sup>1</sup>R [facility] esult Medical Comment: The Center eGFR is calculated using the CKD-EPI formula. In most young, healthy individuals the eGFR will be >90 mL/min/1.73m2 . The eGFR declines with age. An eGFR of 60-89 may be normal in some populations, particularly the elderly, for whom the CKD-EPI formula has not been extensively validated. Use of the eGFR is not recommended in the following populations:& lt;br/>
I ndividuals with unstable creatinine concentration s, including patients and those with serious co-morbid conditions.<b r/>
Patie nts with extremes in muscle mass or diet.

The data above are obtained from the National Kidney Disease Education Program (NKDEP) which additionally recommends that when the eGFR is used in patients with extremes of body mass index for purposes of drug dosing, the eGFR should be multiplied by the estimated BMI. HEMATOLOGY Eosinophils 3.5 0.0 - 4.0 02/08 [facility] HEMATOLOGY Basophils 0.3 0.0 - 1.0 02/08 [facility] HEMATOLOGY Segs-Bands # 6.0 1.5 - 8.1 02/08 as [facility] HEMATOLOGY Lymphocytes 2.0 1.0 - 5.5 02/[place] # /2013 [facility] HEMATOLOGY Monocytes # 1.0 0.0 - 0.8 02/08 s /2013 [facility] HEMATOLOGY Eosinophils 0.3 0.0 - 0.5 02/08 [place] # /2013 [facility] HEMATOLOGY Segs 63.9 45.0 - 02/08 [place] 75.0 /2013 [facility] HEMATOLOGY Monocytes 10.8 2.0 - 12.0 02/08 [facility] HEMATOLOGY Lymphocytes 21.5 20.0 - 02/08 40.0 [facility] HEMATOLOGY MPV 8.2 7.4 - 10.4 02/08 [facility] HEMATOLOGY RDW 12.3 11.5 - 02/08 [place] 14.5 /2013 [facility] HEMATOLOGY Platelet 196 133 - 450 02/08 [facility] HEMATOLOGY Hgb 11.6 14.0 - 02/08 [place] 18.0 [facility] HEMATOLOGY RBC 3.76 4.70 - 02/08 [place] 6.10 /2013 [facility] HEMATOLOGY MCHC 33.2 32.0 - 02/08 [place] 36.0 /2013 [facility] HEMATOLOGY MCH 30.9 27.0 - 02/08 [place] 31.0 /2013 [facility] HEMATOLOGY WBC 9.4 3.7 - 10.4 02/08 [facility] HEMATOLOGY MCV 93.0 80.0 - 02/08 [place] 94.0 [facility] HEMATOLOGY Hct 34.9 42.0 - 02/08 [place] 54.0 /2013 [facility] URINE AND UA Protein Negative Negative 02/07 [facility] STOOL (02/07/14 3:30 AM) [facility] URINE AND UA pH 6.5 5.0 - 8.0 02/07 [facility] STOOL /2013 [facility] URINE AND UA Bili Negative Negative 02/07 [facility] STOOL *NA* /2013 Medical (02/07/14 3:30 AM) [place] URINE AND UA Blood Negative Negative 02/07 [facility] STOOL (02/07/14 3:30 AM) [facility] URINE AND UA Glucose Negative Negative 02/07 [facility] STOOL (02/07/14 3:30 AM) [facility] URINE AND UA Ketones Negative Negative 02/07 [place] STOOL *NA* /2013 Medical (02/07/14 3:30 AM) [place] URINE AND UA 0.2 0.1 - 1.0 02/07 [facility] Urobilinogen /2013 [facility] URINE AND UA Nitrite Negative Negative 02/07 [facility] STOOL (02/07/14 3:30 AM) [facility] URINE AND UA Leuk Est Negative Negative 02/07 [facility] STOOL (02/07/14 3:30 AM) [facility] URINE AND UA Turbidity Clear Clear 02/07 [facility] (02/07/14 3:30 AM) [facility] URINE AND UA Spec Grav 1.037 <=1.030 02/07 [facility] STOOL [facility] URINE AND UA Color Yellow Yellow 02/07 [facility] STOOL *NA* /2013 [facility] (02/07/14 3:30 AM) [place] URINE AND UA Amorph Occasional None Seen 02/[place] /HPF /HPF /2013 [facility] URINE AND UA WBC 0-2 /HPF None Seen 02/07 [facility] STOOL /HPF /2013 [facility] URINE AND UA RBC 0-2 /HPF 0 - 2 02/07 [facility] STOOL [facility] URINE AND Micro? Performed 02/07 [facility] (02/07/14 3:30 AM) [facility] URINE AND UA Sq Epi Rare /LPF Few /LPF 02/07 STOOL [facility] CHEM PANEL Lipase Lvl 73 73 - 393 02/07 [facility] CHEM PANEL Lactic Acid 0.7 0.5 - 2.2 02/07 [place] [facility] CHEM PANEL Bili Total 0.5 0.2 - 1.3 02/07 [facility] CHEM PANEL Bili Direct 0.1 0.0 - 0.3 02/07 [place] [facility] CHEM PANEL Alk Phos 96 39 - 136 02/07 [facility] CHEM PANEL ALT 26 0 - 65 02/07 [facility] CHEM PANEL AST 19 0 - 37 02/07 [facility] CHEM PANEL Total 7.8 6.4 - 8.4 02/07 [facility] CHEM PANEL Albumin Lvl 3.5 3.5 - 5.0 02/07 [facility] CHEM PANEL Bili 0.4 0.0 - 1.0 02/07 [facility] CHEM PANEL Globulin 4.3 2.0 - 4.0 02/07 [facility] CHEM PANEL A/G Ratio 0.8 0.7 - 1.6 02/07 [facility] CHEM PANEL Glucose Lvl 106 70 - 99 02/07 <sup>6</sup>I nterpretive Medical Data: Adult Center reference range values reflect the clinical guidelines
of the [employer]. CHEM PANEL BUN 11 7 - 22 02/07 [facility] CHEM PANEL Creatinine 1.0 0.5 - 1.4 02/07 [facility] CHEM PANEL eGFR 107 02/07 <sup>3</sup>R esult Medical Comment: The Center eGFR is calculated using the CKD-EPI formula. In most young, healthy individuals the eGFR will be >90 mL/min/1.73m2 . The eGFR declines with age. An eGFR of 60-89 may be normal in some populations, particularly the elderly, for whom the CKD-EPI formula has not been extensively validated. Use of the eGFR is not recommended in the following populations:& lt;br/>
I ndividuals with unstable creatinine concentration s, including patients and those with serious co-morbid conditions.<b r/>
Patie nts with extremes in muscle mass or diet.

The data above are obtained from the National Kidney Disease Education Program (NKDEP) which additionally recommends that when the eGFR is used in patients with extremes of body mass index for purposes of drug dosing, the eGFR should be multiplied by the estimated BMI. CHEM PANEL Calcium Lvl 8.8 8.5 - 10.5 02/07 [facility] CHEM PANEL CO2 26 24 - 32 02/07 [facility] CHEM PANEL Chloride Lvl 102 95 - 109 02/07 [facility] CHEM PANEL Potassium 3.5 3.5 - 5.1 02/07 [facility] CHEM PANEL Sodium Lvl 138 135 - 145 02/07 [facility] CHEM PANEL AGAP 13.5 10.0 - 02/07 [place] 20.0 [facility] HEMATOLOGY Atypical 0.0 <=0.0 % 02/07 Lymphs [facility] HEMATOLOGY Plt Morph Normal 02/07 [facility] (02/07/14 3:30 AM) [facility] HEMATOLOGY Anisocyte 1+ None Seen 02/07 [facility] *ABN* /2013 [facility] (02/07/14 3:30 AM) [place] HEMATOLOGY Monocytes # 1.2 0.0 - 0.8 02/07 [place] [facility] HEMATOLOGY Segs 78.0 45.0 - 02/07 [place] 75.0 [facility] HEMATOLOGY Basophils # 0.2 0.0 - 0.2 02/07 s [facility] HEMATOLOGY Bands 0.0 0.0 - 11.0 02/07 [facility] HEMATOLOGY Monocytes 8.0 2.0 - 12.0 02/07 [facility] HEMATOLOGY Lymphocytes 13.0 20.0 - 02/07 [place] 40.0 /2013 [facility] HEMATOLOGY Basophils 1.0 0.0 - 1.0 02/07 [facility] HEMATOLOGY Lymphocytes 2.0 1.0 - 5.5 02/07 [place] # [facility] HEMATOLOGY Segs-Bands # 11.8 1.5 - 8.1 02/07 [facility] HEMATOLOGY RBC 3.77 4.70 - 02/07 [place] 6.10 /2013 [facility] HEMATOLOGY WBC 15.1 3.7 - 10.4 02/07 [facility] Center HEMATOLOGY MCHC 34.2 32.0 - 02/07 [place] 36.0 /2013 [facility] HEMATOLOGY RDW 11.6 11.5 - 02/07 [place] 14.5 /2013 Medical Center HEMATOLOGY MCH 31.4 27.0 - 02/07 [place] 31.0 [facility] HEMATOLOGY MCV 91.7 80.0 - 02/07 [place] 94.0 /2013 [facility] HEMATOLOGY Hct 34.5 42.0 - 02/07 [place] 54.0 /2013 [facility] HEMATOLOGY Hgb 11.8 14.0 - 02/07 [place] 18.0 [facility] HEMATOLOGY MPV 8.1 7.4 - 10.4 02/07 [facility] HEMATOLOGY Platelet 226 133 - 450 02/07 [facility] IMMUNOLOGY CDC HIV 4th Negative Negative 02/07 s GEN (02/07/14 3:30 AM) [facility] CHEM PANEL AST 35 0 - 37 01/18 [facility] CHEM PANEL ALT 39 0 - 65 01/18 [facility] CHEM PANEL Globulin 4.6 2.0 - 4.0 01/18 [facility] CHEM PANEL A/G Ratio 0.9 0.7 - 1.6 01/18 [facility] CHEM PANEL Alk Phos 141 39 - 136 01/18 [facility] CHEM PANEL Bili Direct 0 0.0 - 0.3 01/18 [facility] CHEM PANEL Bili Total 0.3 0.2 - 1.3 01/18 [facility] CHEM PANEL Total 8.7 6.4 - 8.4 01/18 [facility] CHEM PANEL Bili 0.3 0.0 - 1.0 01/18 [facility] CHEM PANEL Albumin Lvl 4.1 3.5 - 5.0 01/18 [facility] CHEM PANEL eGFR 95 01/18 <sup>1</sup>R esult Medical Comment: The Center eGFR is calculated using the CKD-EPI formula. In most young, healthy individuals the eGFR will be >90 mL/min/1.73m2 . The eGFR declines with age. An eGFR of 60-89 may be normal in some populations, particularly the elderly, for whom the CKD-EPI formula has not been extensively validated. Use of the eGFR is not recommended in the following populations:& lt;br/>
I ndividuals with unstable creatinine concentration s, including patients and those with serious co-morbid conditions.<b r/>
Patie nts with extremes in muscle mass or diet.

The data above are obtained from the National Kidney Disease Education Program (NKDEP) which additionally recommends that when the eGFR is used in patients with extremes of body mass index for purposes of drug dosing, the eGFR should be multiplied by the estimated BMI. CHEM PANEL Calcium Lvl 9.2 8.5 - 10.5 01/18 [facility] CHEM PANEL CO2 31 24 - 32 01/18 [facility] CHEM PANEL Potassium 4.0 3.5 - 5.1 01/18 [facility] CHEM PANEL Chloride Lvl 102 95 - 109 01/18 [facility] CHEM PANEL Sodium Lvl 140 135 - 145 01/18 [facility] CHEM PANEL Creatinine 1.1 0.5 - 1.4 01/18 [facility] CHEM PANEL Glucose Lvl 81 70 - 99 01/18 <sup>2</sup>I nterpretive Medical Data: Adult Center reference range values reflect the clinical guidelines
of the [place] [employer]. CHEM PANEL BUN 14 7 - 22 01/18 [facility] CHEM PANEL AGAP 11.0 10.0 - 01/18 20.0 [facility] HEMATOLOGY Eosinophils 5.1 0.0 - 4.0 01/18 [facility] HEMATOLOGY Basophils # 0.1 0.0 - 0.2 01/18 [facility] HEMATOLOGY Lymphocytes 2.2 1.0 - 5.5 01/18 s [facility] HEMATOLOGY Monocytes # 0.9 0.0 - 0.8 01/18 [facility] HEMATOLOGY Eosinophils 0.4 0.0 - 0.5 01/18 s [facility] HEMATOLOGY Lymphocytes 28.5 20.0 - 01/18 [place] 40.0 [facility] HEMATOLOGY Monocytes 11.2 2.0 - 12.0 01/18 [facility] HEMATOLOGY Segs 53.7 45.0 - 01/18 [place] 75.0 [facility] HEMATOLOGY Segs-Bands # 4.2 1.5 - 8.1 01/18 [facility] HEMATOLOGY Basophils 1.5 0.0 - 1.0 01/18 [facility] HEMATOLOGY INR 1.06 0.85 - 01/18 <sup[facility]3</sup[facility] nterpretive Medical Data: Center RECOMMENDED RANGES FOR PROTIME INR:
2.0-3.0 for most medical and surgical thromboemboli c states.
2.5-3.5 for artificial heart valves and recurrent embolism.<br/ >
INR SHOULD BE USED ONLY FOR PATIENTS ON STABLE ANTICOAGULANT THERAPY. HEMATOLOGY PT 13.7 12.0 - 01/18 14.7 [facility] HEMATOLOGY PTT 32.9 22.9 - 01/18 <sup>4</sup>I [place] 35.8 nterpretive Medical Data: [facility] Therapeutic Range: 57 - 92 [place] HEMATOLOGY Platelet 257 133 - 450 01/18 [facility] HEMATOLOGY MPV 8.1 7.4 - 10.4 01/18 [facility] HEMATOLOGY MCH 32.1 27.0 - 01/18 [place] 31.0 [facility] HEMATOLOGY MCHC 34.9 32.0 - 01/18 [place] 36.0 [facility] HEMATOLOGY RDW 11.5 11.5 - 01/18 14.5 [facility] HEMATOLOGY WBC 7.8 3.7 - 10.4 01/18 [facility] HEMATOLOGY RBC 4.15 4.70 - 01/18 [place] 6.10 [facility] HEMATOLOGY Hgb 13.3 14.0 - 01/18 [place] 18.0 [facility] HEMATOLOGY Hct 38.2 42.0 - 01/18 54.0 [facility] HEMATOLOGY MCV 92.2 80.0 - 01/18 [facility] 94.0 /2013 [facility] CHEM PANEL Magnesium 1.2 1.8 - 2.4 01/01 [facility] Lvl [facility] CHEM PANEL eGFR 107 01/01 <sup>1</sup>R [facility] esult Medical Comment: The Center eGFR is calculated using the CKD-EPI formula. In most young, healthy individuals the eGFR will be >90 mL/min/1.73m2 . The eGFR declines with age. An eGFR of 60-89 may be normal in some populations, particularly the elderly, for whom the CKD-EPI formula has not been extensively validated. Use of the eGFR is not recommended in the following populations:& lt;br/>
I ndividuals with unstable creatinine concentration s, including patients and those with serious co-morbid conditions.<b r/>
Patie nts with extremes in muscle mass or diet.

The data above are obtained from the National Kidney Disease Education Program (NKDEP) which additionally recommends that when the eGFR is used in patients with extremes of body mass index for purposes of drug dosing, the eGFR should be multiplied by the estimated BMI. CHEM PANEL Chloride Lvl 104 95 - 109 01/01 [facility] CHEM PANEL Calcium Lvl 9.0 8.5 - 10.5 01/01 [facility] CHEM PANEL CO2 29 24 - 32 01/01 [facility] CHEM PANEL Potassium 4.0 3.5 - 5.1 01/01 [facility] CHEM PANEL Sodium Lvl 141 135 - 145 01/01 [facility] CHEM PANEL Creatinine 1.0 0.5 - 1.4 01/01 [facility] CHEM PANEL BUN 5 7 - 22 01/01 [facility] CHEM PANEL Glucose Lvl 92 70 - 99 01/01 <sup>2</sup>I nterpretive Medical Data: Adult Center reference range values reflect the clinical guidelines
of the [place] [employer]. CHEM PANEL AGAP 12.0 10.0 - 01/01 20.0 [facility] CHEM PANEL Phosphorus 4.2 2.5 - 4.5 01/01 [facility] HEMATOLOGY Segs 44.4 45.0 - 01/01 [place] 75.0 [facility] HEMATOLOGY Lymphocytes 38.7 20.0 - 01/01 [place] 40.0 [facility] HEMATOLOGY Monocytes 11.4 2.0 - 12.0 01/01 [facility] HEMATOLOGY Basophils 0.5 0.0 - 1.0 01/01 [facility] HEMATOLOGY Eosinophils 5.0 0.0 - 4.0 01/01 a s [facility] HEMATOLOGY Segs-Bands # 2.3 1.5 - 8.1 01/01 [facility] HEMATOLOGY Lymphocytes 2.0 1.0 - 5.5 01/01 [place] # /2013 [facility] HEMATOLOGY Eosinophils 0.3 0.0 - 0.5 01/01 a [place] # /2013 [facility] HEMATOLOGY Monocytes # 0.6 0.0 - 0.8 01/01 [facility] HEMATOLOGY MCH 31.3 27.0 - 01/01 31.0 [facility] HEMATOLOGY MCHC 33.4 32.0 - 01/01 36.0 [facility] HEMATOLOGY Platelet 176 133 - 450 01/01 [facility] HEMATOLOGY Hct 38.6 42.0 - 01/01 54.0 [facility] HEMATOLOGY MCV 93.7 80.0 - 01/01 94.0 [facility] HEMATOLOGY RDW 13.0 11.5 - 01/01 14.5 [facility] HEMATOLOGY MPV 7.9 7.4 - 10.4 01/01 [facility] HEMATOLOGY WBC X 10x3 5.1 3.7 - 10.4 01/01 [facility] HEMATOLOGY RBC X 10x6 4.12 4.70 - 01/01 6.10 [facility] HEMATOLOGY Hgb 12.9 14.0 - 01/01 18.0 [facility] CHEMISTRY eGFR 95 08/24 <sup>1</sup>R [facility] Medical Comment: The Center eGFR is calculated using the CKD-EPI formula. In most young, healthy individuals the eGFR will be >90 mL/min/1.73m2 . The eGFR declines with age. An eGFR of 60-89 may be normal in some populations, particularly the elderly, for whom the CKD-EPI formula has not been extensively validated. Use of the eGFR is not recommended in the following populations:& lt;br/>
I ndividuals with unstable creatinine concentration s, including patients and those with serious co-morbid conditions.<b r/>
Patie nts with extremes in muscle mass or diet.

The data above are obtained from the National Kidney Disease Education Program (NKDEP) which additionally recommends that when the eGFR is used in patients with extremes of body mass index for purposes of drug dosing, the eGFR should be multiplied by the estimated BMI. CHEMISTRY CO2 24 24 - 32 08/24 Normal [facility] CHEMISTRY Chloride Lvl 103 95 - 109 08/24 Normal [facility] CHEMISTRY Potassium 4.2 3.5 - 5.1 08/24 Normal [facility] CHEMISTRY Sodium Lvl 138 135 - 145 08/24 Normal [facility] CHEMISTRY Calcium Lvl 8.9 8.5 - 10.5 08/24 [place] [facility] CHEMISTRY Creatinine 1.1 0.5 - 1.4 08/24 Normal [place] Lvl [facility] CHEMISTRY BUN 23 7 - 22 08/24 [facility] CHEMISTRY Glucose Lvl 88 70 - 99 08/24 Normal <sup>4</sup>I T ex nterpretive Medical Data: Adult Center reference range values reflect the clinical guidelines
of the [place] [employer]. CHEMISTRY AGAP 15.2 10.0 - 08/24 Normal [place] 20.0 [facility] HEMATOLOGY Basophils # 0.1 0.0 - 0.2 08/24 [place] [facility] HEMATOLOGY Monocytes # 0.8 0.0 - 0.8 08/24 [place] [facility] HEMATOLOGY Eosinophils 0.5 0.0 - 0.5 08/24 [place] [facility] HEMATOLOGY Eosinophils 6.5 0.0 - 4.0 08/24 [place] [facility] HEMATOLOGY Basophils 0.9 0.0 - 1.0 08/24 Normal [facility] HEMATOLOGY Segs-Bands # 3.8 1.5 - 8.1 08/24 Normal [facility] HEMATOLOGY Lymphocytes 2.4 1.0 - 5.5 08/24 [place] # [facility] HEMATOLOGY Segs 50.4 45.0 - 08/24 Normal [place] 75.0 [facility] HEMATOLOGY Monocytes 10.3 2.0 - 12.0 08/24 Normal [facility] HEMATOLOGY Lymphocytes 31.9 20.0 - 08/24 Normal [place] 40.0 [facility] HEMATOLOGY Hgb 11.8 14.0 - 08/24 LOW [place] 18.0 [facility] HEMATOLOGY RBC X 10x6 3.80 4.70 - 11 LOW [place] 6.10 [facility] HEMATOLOGY Hct 34.6 42.0 - 08/24 LOW [place] 54.0 [facility] HEMATOLOGY Platelet 215 133 - 450 08/24 Normal [facility] HEMATOLOGY MCV 91.1 80.0 - 08/24 Normal [facility] [place] 94.0 /2012 [facility] HEMATOLOGY MCH 31.0 27.0 - 08/24 Normal [facility] 31.0 [facility] HEMATOLOGY MCHC 34.0 32.0 - 08/24 Normal [facility] 36.0 [facility] HEMATOLOGY RDW 14.6 11.5 - 08/24 [place] [facility] 14.5 [facility] HEMATOLOGY MPV 8.3 7.4 - 10.4 08/24 Normal [facility] HEMATOLOGY WBC X 10x3 7.6 3.7 - 10.4 08/24 Normal s [facility] CHEMISTRY Vanco Tr TND 0830 08/23 [facility] CHEMISTRY Vanco Tr 13.3 08/23 <sup>8</sup>I [facility] nterpretive Medical Data: Center Therapeutic Range:
Trough: 10 - 20 ug/mL
Peak: 20 - 40 ug/mL
Potential Toxicity: >80 ug/mL CHEMISTRY eGFR 86 08/23 <sup>2</sup>R esult Medical Comment: The Center eGFR is calculated using the CKD-EPI formula. In most young, healthy individuals the eGFR will be >90 mL/min/1.73m2 . The eGFR declines with age. An eGFR of 60-89 may be normal in some populations, particularly the elderly, for whom the CKD-EPI formula has not been extensively validated. Use of the eGFR is not recommended in the following populations:& lt;br/>
I ndividuals with unstable creatinine concentration s, including patients and those with serious co-morbid conditions.<b r/>
Patie nts with extremes in muscle mass or diet.

The data above are obtained from the National Kidney Disease Education Program (NKDEP) which additionally recommends that when the eGFR is used in patients with extremes of body mass index for purposes of drug dosing, the eGFR should be multiplied by the estimated BMI. CHEMISTRY Sodium Lvl 138 135 - 145 08/23 Normal [facility] CHEMISTRY Creatinine 1.2 0.5 - 1.4 08/23 Normal [facility] Lvl [facility] CHEMISTRY BUN 19 7 - 22 08/23 Normal [facility] CHEMISTRY Glucose Lvl 87 70 - 99 08/23 Normal <sup>5</sup>I [place] /2012 nterpretive Medical Data: Adult Center reference range values reflect the clinical guidelines
of the [employer]. CHEMISTRY CO2 27 24 - 32 11 [facility] CHEMISTRY Chloride Lvl 102 95 - 109 08/23 [facility] CHEMISTRY Calcium Lvl 8.6 8.5 - 10.5 08/23 [place] [facility] CHEMISTRY Potassium 3.9 3.5 - 5.1 08/23 Normal [place] Lvl /2012 [facility] CHEMISTRY AGAP 12.9 10.0 - 11 Normal [place] 20.0 /2012 [facility] HEMATOLOGY MCH 31.3 27.0 - 11 HI [place] 31.0 /2012 [facility] HEMATOLOGY MCV 90.8 80.0 - 11 Normal [place] 94.0 /2012 [facility] HEMATOLOGY Hct 32.8 42.0 - 11 LOW [place] 54.0 /2012 [facility] HEMATOLOGY MCHC 34.5 32.0 - 11 Normal [place] 36.0 /2012 [facility] HEMATOLOGY Hgb 11.3 14.0 - 11 LOW [place] 18.0 /2012 [facility] Center HEMATOLOGY MPV 8.3 7.4 - 10.4 11 Normal [facility] HEMATOLOGY Platelet 184 133 - 450 08/23 Normal [facility] HEMATOLOGY RDW 14.7 11.5 - 11 HI [place] 14.5 /2012 [facility] HEMATOLOGY WBC X 10x3 6.9 3.7 - 10.4 08/23 Normal [place] s /2012 [facility] Center HEMATOLOGY RBC X 10x6 3.61 4.70 - 11 LOW [place] 6.10 /2012 [facility] HEMATOLOGY Basophils # 0.1 0.0 - 0.2 11 [place] [facility] HEMATOLOGY Segs-Bands # 3.8 1.5 - 8.1 08/23 Normal [place] /2012 [facility] HEMATOLOGY Eosinophils 0.4 0.0 - 0.5 08/23 [place] # /2012 [facility] HEMATOLOGY Lymphocytes 2.0 1.0 - 5.5 11 [place] # /2012 [facility] HEMATOLOGY Monocytes # 0.7 0.0 - 0.8 08/23 [place]2012 [facility] HEMATOLOGY Segs 54.5 45.0 - 11 Normal [place] 75.0 [facility] HEMATOLOGY Monocytes 9.9 2.0 - 12.0 08/23 Normal [facility] HEMATOLOGY Lymphocytes 29.1 20.0 - 11 Normal [place] 40.0 /2012 [facility] HEMATOLOGY Eosinophils 5.7 0.0 - 4.0 08/23 HI [facility] HEMATOLOGY Basophils 0.8 0.0 - 1.0 08/23 Normal [facility] CHEMISTRY eGFR 86 08/22 <sup>3</sup>R esult Medical Comment: The Center eGFR is calculated using the CKD-EPI formula. In most young, healthy individuals the eGFR will be >90 mL/min/1.73m2 . The eGFR declines with age. An eGFR of 60-89 may be normal in some populations, particularly the elderly, for whom the CKD-EPI formula has not been extensively validated. Use of the eGFR is not recommended in the following populations:& lt;br/>
I ndividuals with unstable creatinine concentration s, including patients and those with serious co-morbid conditions.<b r/>
Patie nts with extremes in muscle mass or diet.

The data above are obtained from the National Kidney Disease Education Program (NKDEP) which additionally recommends that when the eGFR is used in patients with extremes of body mass index for purposes of drug dosing, the eGFR should be multiplied by the estimated BMI. CHEMISTRY CO2 27 24 - 32 08/22 Normal [facility] CHEMISTRY Calcium Lvl 8.4 8.5 - 10.5 08/22 LOW [facility] CHEMISTRY Chloride Lvl 104 95 - 109 08/22 Normal [facility] CHEMISTRY Glucose Lvl 93 70 - 99 08/22 Normal <sup>6</sup>I T ex nterpretive Medical Data: Adult Center reference range values reflect the clinical guidelines
of the [employer]. CHEMISTRY BUN 16 7 - 22 08/22 Normal [facility] CHEMISTRY Sodium Lvl 139 135 - 145 08/22 Normal [facility] CHEMISTRY Potassium 3.8 3.5 - 5.1 08/22 Normal [facility] CHEMISTRY Creatinine 1.2 0.5 - 1.4 11 Normal [place] Lvl /2012 Medical Center CHEMISTRY AGAP 11.8 10.0 - 11 Normal [place] 20.0 /2012 [facility] Center HEMATOLOGY RDW 14.3 11.5 - 11 Normal [place] 14.5 /2012 [facility] Center HEMATOLOGY Platelet 191 133 - 450 08/22 Normal [facility] HEMATOLOGY MPV 8.3 7.4 - 10.4 08/22 Normal [place] [facility] HEMATOLOGY MCV 90.8 80.0 - 11 Normal [place] 94.0 /2012 [facility] Center HEMATOLOGY MCH 30.0 27.0 - 11 Normal [place] 31.0 /2012 [facility] Center HEMATOLOGY MCHC 33.0 32.0 - 11 Normal [place] 36.0 /2012 [facility] Center HEMATOLOGY Hgb 11.4 14.0 - 11 LOW [place] 18.0 /2012 Medical Center HEMATOLOGY Hct 34.6 42.0 - 08/22 LOW [place] 54.0 /2012 Medical Center HEMATOLOGY RBC X 10x6 3.81 4.70 - 08/22 LOW [place] 6.10 /2012 Medical Center HEMATOLOGY WBC X 10x3 6.2 3.7 - 10.4 08/22 [place] [facility] HEMATOLOGY Eosinophils 0.4 0.0 - 0.5 08/22 [place] # /2012 [facility] HEMATOLOGY Lymphocytes 1.6 1.0 - 5.5 08/22 [place] # /2012 [facility] HEMATOLOGY Monocytes # 0.9 0.0 - 0.8 08/22 [place] /2012 [facility] HEMATOLOGY Lymphocytes 25.4 20.0 - 08/22 Normal [place] 40.0 /2012 [facility] Center HEMATOLOGY Segs 53.7 45.0 - 11 Normal [place] 75.0 /2012 [facility] HEMATOLOGY Basophils 0.6 0.0 - 1.0 08/22 Normal [facility] HEMATOLOGY Eosinophils 6.4 0.0 - 4.0 08/22 [facility] [place] [facility] [place] HEMATOLOGY Segs-Bands # 3.3 1.5 - 8.1 08/22 Normal [place] /2012 [facility] Center HEMATOLOGY Monocytes 13.9 2.0 - 12.0 08/22 HI [facility] CHEMISTRY Vanco Tr TND 2030 08/21 Medical Center CHEMISTRY Vanco Tr 12.4 08/21 <sup>9</sup>I nterpretive Medical Data: Center Therapeutic Range:
Trough: 10 - 20 ug/mL
Peak: 20 - 40 ug/mL
Potential Toxicity: >80 ug/mL CHEMISTRY Vanco Tr TND 0830 08/20 [facility] CHEMISTRY Vanco Tr 7.8 08/20 <sup>10</sup> [place] Interpretive Medical Data: Center Therapeutic Range:
Trough: 10 - 20 ug/mL
Peak: 20 - 40 ug/mL
Potential Toxicity: >80 ug/mL CHEMISTRY Gent Tr 0.7 08/17 <sup>7</sup>I nterpretive Medical Data: Center Therapeutic Range:
Trough: Less than 2.0 ug/mL
Peak: 4.0 - 10.0 ug/mL
Toxic: Greater than 12.0 ug/mL CHEMISTRY Gent Tr TND 1443 08/17 [facility] CHEMISTRY Temp [place] 37.0 11 [facility] CHEMISTRY pO2 [place] 37 20 - 49 08/17 Normal [facility] CHEMISTRY pCO2 [place] 44 38 - 52 08/17 Normal [facility] CHEMISTRY O2 Sat [place] 67.9 40.0 - 08/17 Normal [facility] 70.0 [facility] CHEMISTRY BE [place] -1 -2-2 - 2 08/17 Normal [facility] CHEMISTRY HCO3 [place] 25 22 - 26 08/17 Normal [facility] CHEMISTRY pH [place] 7.36 7.28 - 11 Normal [facility] 7.42 [facility] HEMATOLOGY aPTT 29.7 22.9 - 1104 Normal <sup>[place]</sup> [place] 35.8 /2012 Interpretive Medical Data: Heparin Center Therapeutic Range: 57 - 92 Seconds HEMATOLOGY PROTIME 13.8 12.0 - 11 Normal [facility] 14.7 [facility] HEMATOLOGY INR 1.07 0.85 - 1104 Normal <sup>11</sup> [place] 1.17 Interpretive Medical Data: Center RECOMMENDED RANGES FOR PROTIME INR:
2.0-3.0 for most medical and surgical thromboemboli c states.
2.5-3.5 for artificial heart valves and recurrent embolism.<br/ >
INR SHOULD BE USED ONLY FOR PATIENTS ON STABLE ANTICOAGULANT THERAPY. HEMATOLOGY Tear Cell Slight None Seen 08/17 ABN [facility] *ABN* Medical (08/17/2013 06:20:22) Ce nter HEMATOLOGY Polychrom Slight None Seen 08/17 Normal [facility] (08/17/2013 06:20:22) Ne dical Center HEMATOLOGY Elliptocyte Slight None Seen 08/17 [facility] * Medical (08/17/2013 06:20:22) Ce nter HEMATOLOGY Toxic Gran Slight None Seen 08/17 [facility] Medical (08/17/2013 06:20:22) Ce nter HEMATOLOGY Anisocyte 1+ None Seen 08/17 [facility] * Medical (08/17/2013 06:20:22) Ce nter HEMATOLOGY Basophils # 0.1 0.0 - 0.2 08/17 Normal [facility] HEMATOLOGY Hypochrom Slight None Seen 08/17 Normal [facility] (08/17/2013 06:20:22) Ne dical Center URINALYSIS Micro? Not Indicated 08/17 [facility] *NA* Medical (08/17/2013 00:15:58) Ce nter URINALYSIS UA Nitrite Negative Negative 08/17 Normal [facility] (08/17/2013 00:15:58) Ne dical Center URINALYSIS UA Leuk Est Negative Negative 08/17 Normal [facility] (08/17/2013 00:15:58) Ne dical Center URINALYSIS UA 0.2 0.1 - 1.0 08/17 Normal [facility] Urobilinogen /2012 [facility] URINALYSIS UA Glucose Negative Negative 08/17 Normal [facility] mg/dL Medical Center URINALYSIS UA Blood Negative Negative 08/17 Normal [facility] (08/17/2013 00:15:58) Ne dicfl Center URINALYSIS UA Ketones 15 mg/dL Negative 08/17 [facility] URINALYSIS UA Bili Negative Negative 08/17 [facility] *NA* Medical (08/17/2013 00:15:58) Ce nter URINALYSIS UA pH 6.0 5.0 - 8.0 08/17 Normal [facility] URINALYSIS UA Spec Grav 1.015 <=1.030 08/17 Normal [facility] URINALYSIS UA Turbidity Clear Clear 08/17 Normal [facility] (08/17/2013 00:15:58) [facility]A Protein Negative Negative 08/17 Normal [facility] mg/dL [facility] URINALYSIS UA Color Yellow Yellow 08/17 [facility] *NA* Medical (08/17/2013 00:15:58) Ce nter CHEMISTRY Lactic Acid 1.2 0.5 - 2.2 08/17 Normal [facility] CHEMISTRY Temp [place] 37.0 08/17 [facility] CHEMISTRY HCO3 [place] 22 22 - 26 08/17 Normal [facility] CHEMISTRY BE [place] -4 -2-2 - 2 08/17 LOW [facility] CHEMISTRY O2 Sat [place] 69.0 40.0 - 08/17 Normal [facility] 70.0 [facility] CHEMISTRY pO2 [place] 39 20 - 49 08/17 Normal [facility] CHEMISTRY pH [place] 7.33 7.28 - 08/17 Normal [facility] 7.42 /2012 [facility] CHEMISTRY pCO2 [place] 41 38 - 52 08/17 Normal [facility] CHEMISTRY Lactic Acid 1.6 0.5 - 2.2 08/17 [facility] CHEMISTRY Alk Phos 137 39 - 136 08/17 HI [facility] CHEMISTRY Bili Total 0.3 0.2 - 1.3 08/17 Normal [facility] CHEMISTRY ALANINE 40 0 - 65 08/17 Normal [facility] AMINOTRANSFE [facility] RASE Center CHEMISTRY ASPARTATE 22 0 - 37 08/17 Normal [facility] TRANSAMINASE Medical Center CHEMISTRY Total 9.8 6.4 - 8.4 08/17 [facility] Protein [facility] CHEMISTRY Albumin Lvl 4.7 3.5 - 5.0 08/17 Normal [facility] CHEMISTRY Globulin 5.1 2.0 - 4.0 08/17 [facility] CHEMISTRY A/G Ratio 0.9 0.7 - 1.6 08/17 Normal MH [facility] CHEMISTRY B/C Ratio 14 6 - 25 08/17 Normal [facility] HEMATOLOGY Plt Morph Normal 08/17 Normal [facility] (08/16/2013 20:00:00) [facility] HEMATOLOGY Bands 1.0 0.0 - 11.0 08/17 Normal [facility] CHEMISTRY AGAP 15.2 10.0 - 06/01 Normal [facility] 20.0 [facility] CHEMISTRY eGFR 71 06/01 NA <sup>1</sup>R esult Medical Comment: The Center eGFR is calculated using the CKD-EPI formula. In most young, healthy individuals the eGFR will be >90 mL/min/1.73m2 . The eGFR declines with age. An eGFR of 60-89 may be normal in some populations, particularly the elderly, for whom the CKD-EPI formula has not been extensively validated. Use of the eGFR is not recommended in the following populations:& lt;br/>
I ndividuals with unstable creatinine concentration s, including patients and those with serious co-morbid conditions.<b r/>
Patie nts with extremes in muscle mass or diet.

The data above are obtained from the National Kidney Disease Education Program (NKDEP) which additionally recommends that when the eGFR is used in patients with extremes of body mass index for purposes of drug dosing, the eGFR should be multiplied by the estimated BMI. CHEMISTRY Potassium 4.2 3.5 - 5.1 06/01 Normal [facility] CHEMISTRY Sodium Lvl 138 135 - 145 06/01 Normal [facility] CHEMISTRY Creatinine 1.4 0.5 - 1.4 06/01 Normal [facility] CHEMISTRY Chloride Lvl 103 95 - 109 06/01 Normal [facility] CHEMISTRY CO2 24 24 - 32 06/01 Normal [facility] CHEMISTRY Calcium Lvl 8.4 8.5 - 10.5 06/01 LOW [facility] CHEMISTRY BUN 8 7 - 22 06/01 Normal [facility] CHEMISTRY Glucose Lvl 78 70 - 99 06/01 Normal <sup>3</sup>I T ex nterpretive Medical Data: Adult Center reference range values reflect the clinical guidelines
of the [place] [employer]. HEMATOLOGY MPV 8.5 7.4 - 10.4 06/01 Normal [facility] HEMATOLOGY Platelet 239 133 - 450 06/01 Normal [facility] HEMATOLOGY RDW 14.8 11.5 - 08 [facility] [place] 14.5 /2012 [facility] HEMATOLOGY RBC 3.16 4.70 - 06/01 LOW [place] 6.10 /2012 Medical Center HEMATOLOGY MCV 89.4 80.0 - 06/01 Normal [place] 94.0 /2012 [facility] HEMATOLOGY Hgb 9.3 14.0 - 06/01 LOW [place] 18.0 /2012 [facility] HEMATOLOGY Hct 28.2 42.0 - 06/01 LOW [place] 54.0 /2012 [facility] HEMATOLOGY WBC 10.1 3.7 - 10.4 06/01 Normal [facility] HEMATOLOGY MCHC 33.1 32.0 - 06/01 Normal [place] 36.0 /2012 Medical Center HEMATOLOGY MCH 29.6 27.0 - 06/01 Normal [place] 31.0 Medical Center HEMATOLOGY Eosinophils 0.2 0.0 - 0.5 06/01 [place] # /2012 [facility] HEMATOLOGY Monocytes # 1.2 0.0 - 0.8 06/01 [facility] [place] [facility] [place] HEMATOLOGY Lymphocytes 1.7 1.0 - 5.5 06/01 [place] # /2012 [facility] HEMATOLOGY Basophils # 0.1 0.0 - 0.2 06/01 [place] [facility] HEMATOLOGY Segs-Bands # 7.0 1.5 - 8.1 06/01 Normal [place] [facility] HEMATOLOGY Basophils 0.6 0.0 - 1.0 06/01 Normal [facility] HEMATOLOGY Eosinophils 1.6 0.0 - 4.0 06/01 [place] [facility] [place] HEMATOLOGY Lymphocytes 16.6 20.0 - 06/01 LOW [place] 40.0 Medical Center HEMATOLOGY Monocytes 11.9 2.0 - 12.0 06/01 Normal [facility] HEMATOLOGY Segs 69.3 45.0 - 06/01 Normal [place] 75.0 [facility] Microbiolo Culture: 05/31 [place] gy Aspirate/ Medical Center Fluid/Tissue HEMATOLOGY INR 1.29 0.85 - 05/31 [place] <sup>5</sup>I [place] 1. nterpretive Medical Data: Center RECOMMENDED RANGES FOR PROTIME INR:
2.0-3.0 for most medical and surgical thromboemboli c states.
2.5-3.5 for artificial heart valves and recurrent embolism.<br/ >
INR SHOULD BE USED ONLY FOR PATIENTS ON STABLE ANTICOAGULANT THERAPY. HEMATOLOGY PT 16.3 12.0 - 05/31 [facility] 14.7 /2012 [facility] Microbiolo Culture: 05/31 [facility] gy Blood [facility] Microbiolo Culture: 05/31 [facility] [place] [facility] Blood [facility] URINALYSIS UA Glucose Negative mg/dL Negative 05/31 Normal [facility] (05/30/2013 22:34:42) [facility] UA Protein Negative mg/dL Negative 05/31 Normal [facility] (05/30/2013 22:34:42) [facility]INALYSIS UA Ketones Negative mg/dL Negative 05/31 NA [facility] *NA* [facility] (05/30/2013 22:34:42) Ce nter URINALYSIS UA Turbidity Clear Clear 05/31 Normal [facility] (05/30/2013 22:34:42) [facility]INALYSIS UA Spec Grav 1.010 <=1.030 05/31 Normal [facility] URINALYSIS UA pH 6.0 5.0 - 8.0 05/31 Normal [facility] URINALYSIS UA 0.2 0.1 - 1.0 05/31 Normal [facility] Urobilinogen [facility] URINALYSIS UA Color Yellow Yellow 05/31 NA [facility] *NA* [facility] (05/30/2013 22:34:42) Ce nter URINALYSIS UA Leuk Est Negative Negative 05/31 Normal [place] (05/30/2013 22:34:42) Ne dical Center URINALYSIS UA Nitrite Negative Negative 05/31 Normal [facility] (05/30/2013 22:34:42) [facility]IN[facility]YSIS UA Bili Negative Negative 05/31 [facility] *NA* Medical (05/30/2013 22:34:42) Ce nter URINALYSIS UA Blood Negative Negative 05/31 Normal [facility] (05/30/2013 22:34:42) Ne dical Center URINALYSIS UA Bacteria None Seen None Seen 05/31 [place]05/30/[place] 22:34:42) Ne dical Center URINALYSIS UA Mucus Rare /LPF None Seen 05/31 Normal [facility] (05/30/2013 22:34:42) Me dical Center URINALYSIS UA RBC 0-2 /HPF 0 - 2 05/31 Normal [facility] (05/30/2013 22:34:42) Me dical Center URINALYSIS Micro? Performed 05/31 Normal [facility] (05/30/2013 22:34:42) Ne dical Center URINALYSIS UA Sq Epi Rare /LPF Few 05/31 Normal [facility] (05/30/2013 22:34:42) Ne dical Center URINALYSIS UA WBC 0-3 0 - 5 05/31 NA Medical Center CHEMISTRY O2 Sat [place] 31.9 40.0 - 05/31 LOW [place] 70.0 Medical Center CHEMISTRY pH [place] 7.36 7.28 - 05/31 Normal [facility] 7.42 Medical Center CHEMISTRY HCO3 [place] 24 22 - 26 05/31 Normal Medical Center CHEMISTRY pO2 [place] 21 20 - 49 05/31 Normal Medical Center CHEMISTRY pCO2 [place] 43 38 - 52 05/31 Normal [facility] CHEMISTRY BE [place] -1 -2-2 - 2 05/31 Normal Medical Center CHEMISTRY Temp [place] 37.0 05/31 NA Medical Center CHEMISTRY Lactic Acid 1.4 0.5 - 2.2 05/31 Normal [facility] Lvl Medical Center CHEMISTRY Total 10.8 6.4 - 8.4 05/31 [facility] Protein Medical Center CHEMISTRY Bili Total 0.3 0.2 - 1.3 05/31 Normal Medical Center CHEMISTRY AST 39 0 - 37 05/31 [facility] Medical Center CHEMISTRY Alk Phos 238 39 - 136 05/31 [facility] CHEMISTRY Albumin Lvl 2.7 3.5 - 5.0 05/31 LOW Medical Center CHEMISTRY ALT 38 0 - 65 05/31 Normal Medical Center CHEMISTRY eGFR 95 05/31 NA <sup>2</sup>R esult Medical Comment: The Center eGFR is calculated using the CKD-EPI formula. In most young, healthy individuals the eGFR will be >90 mL/min/1.73m2 . The eGFR declines with age. An eGFR of 60-89 may be normal in some populations, particularly the elderly, for whom the CKD-EPI formula has not been extensively validated. Use of the eGFR is not recommended in the following populations:& lt;br/>
I ndividuals with unstable creatinine concentration s, including patients and those with serious co-morbid conditions.<b r/>
Patie nts with extremes in muscle mass or diet.

The data above are obtained from the National Kidney Disease Education Program (NKDEP) which additionally recommends that when the eGFR is used in patients with extremes of body mass index for purposes of drug dosing, the eGFR should be multiplied by the estimated BMI. CHEMISTRY Glucose Lvl 114 70 - 99 05/31 [place] <sup>4</sup>I [facility] nterpretive Medical Data: [facility] Center reference range values reflect the clinical guidelines
of the [place] [employer]. CHEMISTRY BUN 11 7 - 22 05/31 Normal [facility] CHEMISTRY Creatinine 1.1 0.5 - 1.4 05/31 [facility] CHEMISTRY Calcium Lvl 9.0 8.5 - 10.5 05/31 [facility] [place] [facility] CHEMISTRY Potassium 3.5 3.5 - 5.1 05/31 Normal [facility] CHEMISTRY Sodium Lvl 135 135 - 145 05/31 Normal [facility] CHEMISTRY CO2 23 24 - 32 05/31 LOW [facility] CHEMISTRY Chloride Lvl 99 95 - 109 05/31 [facility] CHEMISTRY A/G Ratio 0.3 0.7 - 1.6 05/31 [facility] CHEMISTRY Globulin 8.1 2.0 - 4.0 05/31 HI [facility] CHEMISTRY B/C Ratio 10 6 - 25 05/31 [facility] CHEMISTRY AGAP 16.5 10.0 - 05/31 [facility] 20.0 Medical Center HEMATOLOGY WBC 12.6 3.7 - 10.4 05/31 [place] /2012 Medical Center HEMATOLOGY RDW 14.2 11.5 - 08 Normal [place] 14.5 /2012 Medical Center HEMATOLOGY Platelet 315 133 - 450 05/31 Normal [place] /2012 Medical Center HEMATOLOGY MCH 29.2 27.0 - 08 Normal [place] 31.0 /2012 Medical Center HEMATOLOGY MCHC 33.1 32.0 - 08 Normal [place] 36.0 /2012 Medical Center HEMATOLOGY MPV 8.5 7.4 - 10.4 05/31 Normal [place] /2012 [facility] HEMATOLOGY RBC 3.71 4.70 - 08 LOW [place] 6.10 /2012 [facility] HEMATOLOGY Hgb 10.8 14.0 - 08 LOW [place] 18.0 [facility] HEMATOLOGY Hct 32.7 42.0 - 05/31 LOW [place] 54.0 /2012 [facility] HEMATOLOGY MCV 88.2 80.0 - 05/31 Normal [place] 94.0 /2012 Medical Center HEMATOLOGY Segs-Bands # 9.7 1.5 - 8.1 05/31 [place] /2012 [facility] Center HEMATOLOGY Lymphocytes 1.7 1.0 - 5.5 05/31 [place] # /2012 [facility] HEMATOLOGY Lymphocytes 13.4 20.0 - 08 LOW [place] 40.0 /2012 [facility] HEMATOLOGY Monocytes 8.5 2.0 - 12.0 05/31 Normal /2012 [facility] HEMATOLOGY Eosinophils 0.3 0.0 - 4.0 05/31 [place] /2012 [facility] HEMATOLOGY Basophils 0.7 0.0 - 1.0 05/31 Normal /2012 [facility] HEMATOLOGY Monocytes # 1.1 0.0 - 0.8 05/31 [facility] [place] /2012 Medical Center HEMATOLOGY Plt Morph Normal 05/31 Normal [place] (05/30/2013 19:40:05) /2012 Ne dicfl Center HEMATOLOGY Segs 77.1 45.0 - 05/31 [facility] [place] 75.0 /2012 Medical Center HEMATOLOGY Eosinophils 0.0 0.0 - 0.5 05/31 [place] # /2012 [facility] HEMATOLOGY Polychrom Slight None Seen 05/31 Normal [place] (05/30/2013 19:40:05) Ne dical Center HEMATOLOGY Hyperseg Slight None Seen 05/31 ABN [facility] *ABN* Medical (05/30/2013 19:40:05) Ce nter HEMATOLOGY Anisocyte 1+ None Seen 05/31 [facility] *ABN* Medical (05/30/2013 19:40:05) Ce nter HEMATOLOGY Basophils # 0.1 0.0 - 0.2 05/31 [place] [facility] [place] CHEMISTRY Amylase Lvl 77 25 - 115 05/31 Normal Medical Center CHEMISTRY Lipase Lvl 355 73 - 393 05/31 Normal [facility] CHEMISTRY Albumin Lvl 2.7 3.5 - 5.0 05/31 LOW Medical Center CHEMISTRY Total 10.8 6.4 - 8.4 05/31 [facility] Protein Medical Center CHEMISTRY AST 42 0 - 37 05/31 [facility] Medical Center CHEMISTRY Bili 0.3 0.0 - 1.0 05/31 Normal [place] [facility] CHEMISTRY Bili Direct 0.1 0.0 - 0.3 05/31 Normal Medical Center CHEMISTRY Bili Total 0.4 0.2 - 1.3 05/31 Normal Medical Center CHEMISTRY Alk Phos 227 39 - 136 05/31 [facility] Medical Center CHEMISTRY ALT 42 0 - 65 05/31 Normal Medical Center CHEMISTRY A/G Ratio 0.3 0.7 - 1.6 05/31 LOW Medical Center CHEMISTRY Globulin 8.1 2.0 - 4.0 05/31 [facility] Medical Center CHEMISTRY AGAP 12.7 10.0 - 0806 Normal [place] 20.0 Medical Center CHEMISTRY Creatinine 1.4 0.5 - 1.4 05/19 Normal [facility] l Medical Center CHEMISTRY Potassium 4.7 3.5 - 5.1 05/19 Normal [place] l [facility] CHEMISTRY BUN 23 7 - 22 08 [facility] Medical Center CHEMISTRY CO2 28 24 - 32 08 Normal Medical Center CHEMISTRY Chloride Lvl 100 95 - 109 05/19 Normal [facility] CHEMISTRY Sodium Lvl 136 135 - 145 08 Normal [facility] Center CHEMISTRY Glucose Lvl 85 70 - 99 08 Normal <sup>16</sup> T ex Interpretive Medical Data: Adult Center reference range values reflect the clinical guidelines
of the [employer]. CHEMISTRY Calcium Lvl 9.3 8.5 - 10.5 05/19 Normal [facility] CHEMISTRY eGFR 71 05/19 NA <sup>13</sup> Result Medical Comment: The Center eGFR is calculated using the CKD-EPI formula. In most young, healthy individuals the eGFR will be >90 mL/min/1.73m2 . The eGFR declines with age. An eGFR of 60-89 may be normal in some populations, particularly the elderly, for whom the CKD-EPI formula has not been extensively validated. Use of the eGFR is not recommended in the following populations:< br/>
Nguyen viduals with unstable creatinine concentration s, including patients and those with serious co-morbid conditions.<b r/>
Patie nts with extremes in muscle mass or diet.

The data above are obtained from the National Kidney Disease Education Program (NKDEP) which additionally recommends that when the eGFR is used in patients with extremes of body mass index for purposes of drug dosing, the eGFR should be multiplied by the estimated BMI. HEMATOLOGY MCHC 33.4 32.0 - 08 Normal [place] 36.0 /2012 [facility] HEMATOLOGY RDW 16.2 11.5 - 08 HI [place] 14.5 /2012 [facility] HEMATOLOGY Platelet 170 133 - 450 05/19 Normal [facility] HEMATOLOGY MPV 8.8 7.4 - 10.4 08 Normal [facility] HEMATOLOGY MCH 29.9 27.0 - 08 Normal [place] 31.0 /2012 [facility] HEMATOLOGY WBC 7.4 3.7 - 10.4 08 Normal [facility] HEMATOLOGY Hgb 7.4 14.0 - 08 LOW [place] 18.0 [facility] HEMATOLOGY MCV 89.6 80.0 - 08 Normal [place] 94.0 /2012 [facility] HEMATOLOGY RBC 2.46 4.70 - 08 LOW [place] 6.10 /2012 [facility] HEMATOLOGY Hct 22.0 42.0 - 08/ LOW [place] 54.0 /2012 [facility] HEMATOLOGY Eosinophils 0.3 0.0 - 0.5 05/19 [place] # /2012 [facility] HEMATOLOGY Monocytes # 1.0 0.0 - 0.8 08/ [place] /2012 [facility] HEMATOLOGY Basophils # 0.1 0.0 - 0.2 08/ [place] [facility] HEMATOLOGY Segs 47.4 45.0 - 05/19 Normal [place] 75.0 /2012 [facility] HEMATOLOGY Lymphocytes 32.9 20.0 - 08/ Normal [place] 40.0 /2012 [facility] HEMATOLOGY Eosinophils 4.5 0.0 - 4.0 / [place] /2012 [facility] HEMATOLOGY Monocytes 14.0 2.0 - 12.0 08/ HI [facility] HEMATOLOGY Segs-Bands # 3.5 1.5 - 8.1 05/19 Normal [place] [facility] HEMATOLOGY Basophils 1.2 0.0 - 1.0 / [facility] HEMATOLOGY Lymphocytes 2.4 1.0 - 5.5 05/19 [place] # [facility] IMMUNOLOGY Wisner-HIV Negative Negative 05/19 NA [facility] 1/ Ab *NA* /2012 Medical (05/19/2013 00:26:00) Ce nter IMMUNOLOGY CRP, High 101.0 05/11 [place]sup>30</sup> [place] Interpretive Medical Data: Low Center Risk: <1.0 mg/L
Aver age Risk: 1.0 - 3.0 mg/L
High Risk: >3.0 mg/L
Infl ammation: >10.0 mg/L Microbiolo Culture: 05/11 [facility] gy Aspirate/Bod /2012 Medical Center Fluid/Tissue HEMATOLOGY WBC 18.4 3.7 - 10.4 05/11 HI [facility] HEMATOLOGY RBC 3.02 4.70 - 05/11 LOW [place] 6.10 [facility] HEMATOLOGY MCV 89.6 80.0 - 05/11 Normal [place] 94.0 [facility] HEMATOLOGY MCHC 32.3 32.0 - 05/11 Normal [place] 36.0 /2012 [facility] HEMATOLOGY MCH 28.9 27.0 - 05/11 Normal [place] 31.0 [facility] HEMATOLOGY Hct 27.1 42.0 - 05/11 LOW [place] 54.0 /2012 [facility] HEMATOLOGY Hgb 8.7 14.0 - 05/11 LOW [place] 18.0 [facility] HEMATOLOGY MPV 8.4 7.4 - 10.4 05/11 Normal [facility] HEMATOLOGY Platelet 672 133 - 450 05/11 HI [facility] HEMATOLOGY RDW 15.3 11.5 - 05/11 [facility] [place] 14.5 /2012 [facility] HEMATOLOGY Basophils 0.3 0.0 - 1.0 05/11 Normal [facility] HEMATOLOGY Eosinophils 4.4 0.0 - 4.0 05/11 [facility] [place] /2012 [facility] HEMATOLOGY Lymphocytes 3.8 1.0 - 5.5 05/11 [place] # /2012 [facility] HEMATOLOGY Segs-Bands # 12.7 1.5 - 8.1 05/11 [facility] [place] /2012 [facility] HEMATOLOGY Basophils # 0.1 0.0 - 0.2 05/11 [place] /2012 [facility] HEMATOLOGY Eosinophils 0.8 0.0 - 0.5 05/11 [facility] [place] # /2012 [facility] HEMATOLOGY Monocytes # 1.0 0.0 - 0.8 05/11 [facility] [place] [facility] HEMATOLOGY Segs 69.3 45.0 - 05/11 Normal [place] 75.0 [facility] HEMATOLOGY Monocytes 5.3 2.0 - 12.0 05/11 Normal /2012 [facility] HEMATOLOGY Lymphocytes 20.7 20.0 - 05/11 Normal [place] 40.0 [facility] CHEMISTRY AGAP 19.6 10.0 - 05/10 Normal [place] 20.0 [facility] CHEMISTRY eGFR 86 05/10 NA <sup>14</sup> Result Medical Comment: The Center eGFR is calculated using the CKD-EPI formula. In most young, healthy individuals the eGFR will be >90 mL/min/1.73m2 . The eGFR declines with age. An eGFR of 60-89 may be normal in some populations, particularly the elderly, for whom the CKD-EPI formula has not been extensively validated. Use of the eGFR is not recommended in the following populations:< br/>
Nguyen viduals with unstable creatinine concentration s, including patients and those with serious co-morbid conditions.<b r/>
Patie nts with extremes in muscle mass or diet.

The data above are obtained from the National Kidney Disease Education Program (NKDEP) which additionally recommends that when the eGFR is used in patients with extremes of body mass index for purposes of drug dosing, the eGFR should be multiplied by the estimated BMI. CHEMISTRY Calcium Lvl 9.2 8.5 - 10.5 05/10 [place] [facility] CHEMISTRY Glucose Lvl 81 70 - 99 05/10 Normal <sup>17</sup> [place] Interpretive Medical Data: Adult Center reference range values reflect the clinical guidelines
of the [place] [employer]. CHEMISTRY BUN 18 7 - 22 05/10 Normal [facility] CHEMISTRY Creatinine 1.2 0.5 - 1.4 05/10 Normal [facility] CHEMISTRY CO2 25 24 - 32 05/10 Normal [facility] CHEMISTRY Chloride Lvl 95 95 - 109 05/10 Normal [facility] CHEMISTRY Potassium 5.6 3.5 - 5.1 05/10 [facility] [place] [facility] CHEMISTRY Sodium Lvl 134 135 - 145 05/10 LOW [facility] HEMATOLOGY MPV 8.1 7.4 - 10.4 05/10 Normal [facility] HEMATOLOGY Platelet 822 133 - 450 05/10 [facility] [place] HEMATOLOGY MCHC 32.0 32.0 - 05/10 Normal [place] 36.0 [facility] HEMATOLOGY RDW 15.7 11.5 - 05/10 [facility] [place] 14.5 [facility] HEMATOLOGY WBC 22.4 3.7 - 10.4 05/10 [facility] HEMATOLOGY MCH 28.9 27.0 - 05/10 Normal [place] 31.0 [facility] HEMATOLOGY MCV 90.3 80.0 - 05/10 Normal [place] 94.0 [facility] HEMATOLOGY Hgb 9.0 14.0 - 05/10 LOW [place] 18.0 [facility] HEMATOLOGY RBC 3.11 4.70 - 05/10 LOW [place] 6.10 [facility] HEMATOLOGY Hct 28.1 42.0 - 05/10 [facility] [place] 54.0 [facility] HEMATOLOGY Lymphocytes 11.0 20.0 - 05/10 LOW [place] 40.0 /2012 [facility] HEMATOLOGY Eosinophils 0.9 0.0 - 0.5 05/10 [place] # /2012 [facility] HEMATOLOGY Segs 69.0 45.0 - 05/10 Normal [place] 75.0 /2012 [facility] HEMATOLOGY Bands 2.0 0.0 - 11.0 05/10 Normal [facility] HEMATOLOGY Atypical 1.0 <=0.0 05/10 HI [place] [facility] HEMATOLOGY Myelocytes 1.0 <=0.0 05/10 HI [facility] HEMATOLOGY Monocytes 8.0 2.0 - 12.0 05/10 Normal [facility] HEMATOLOGY Eosinophils 4.0 0.0 - 4.0 05/10 [place] [facility] HEMATOLOGY Metamyelocyt 4.0 0.0 - 1.0 05/10 [place] [facility] HEMATOLOGY Monocytes # 1.8 0.0 - 0.8 05/10 [place] [facility] HEMATOLOGY Lymphocytes 2.7 1.0 - 5.5 05/10 [place] [facility] HEMATOLOGY Segs-Bands # 15.9 1.5 - 8.1 05/10 [place] [facility] CHEMISTRY Troponin-T <0.010 0.000 - 05/09 Normal 0.100 [facility] CHEMISTRY Total CK 43 12 - 191 05/09 Normal [facility] CHEMISTRY Myoglobin 61 25 - 72 05/09 Normal [facility] CHEMISTRY Chloride Lvl 96 95 - 109 05/09 Normal [facility] CHEMISTRY CO2 28 24 - 32 05/09 Normal [facility] CHEMISTRY Calcium Lvl 9.6 8.5 - 10.5 05/09 Normal a [facility] CHEMISTRY AGAP 12.7 10.0 - 05/09 Normal 20.0 Medical Center CHEMISTRY Sodium Lvl 131 135 - 145 05/09 LOW Medical [facility] CHEMISTRY Potassium 5.7 3.5 - 5.1 05/09 HI [facility] CHEMISTRY Creatinine 1.3 0.5 - 1.4 05/09 Normal [facility] CHEMISTRY Glucose Lvl 84 70 - 99 05/09 Normal <sup>18</sup> [place] Interpretive Medical Data: Adult Center reference range values reflect the clinical guidelines
of the [place] [employer]. CHEMISTRY BUN 19 7 - 22 05/09 Normal [facility] CHEMISTRY eGFR 78 05/09 NA <sup>15</sup> Result Medical Comment: The Center eGFR is calculated using the CKD-EPI formula. In most young, healthy individuals the eGFR will be >90 mL/min/1.73m2 . The eGFR declines with age. An eGFR of 60-89 may be normal in some populations, particularly the elderly, for whom the CKD-EPI formula has not been extensively validated. Use of the eGFR is not recommended in the following populations:< br/>
Nguyen viduals with unstable creatinine concentration s, including patients and those with serious co-morbid conditions.<b r/>
Patie nts with extremes in muscle mass or diet.

The data above are obtained from the National Kidney Disease Education Program (NKDEP) which additionally recommends that when the eGFR is used in patients with extremes of body mass index for purposes of drug dosing, the eGFR should be multiplied by the estimated BMI. CHEMISTRY Potassium 5.8 3.5 - 5.1 05/09 [facility] HEMATOLOGY Bands 7.0 0.0 - 11.0 05/09 Normal [facility] HEMATOLOGY Large Plt Slight None Seen 05/09 [facility] Medical (05/09/2013 02:18:00) Ce nter HEMATOLOGY Myelocytes 3.0 <=0.0 05/09 [facility] HEMATOLOGY Metamyelocyt 3.0 0.0 - 1.0 05/09 [facility] [place] [facility] HEMATOLOGY Atypical 0.0 <=0.0 05/09 [facility] Lymph [facility] CHEMISTRY Phosphorus 4.0 2.5 - 4.5 05/07 [facility] CHEMISTRY Magnesium 2.0 1.8 - 2.4 05/07 [facility] HEMATOLOGY Giant Plt Slight None Seen 05/07 [facility] *ABN* Medical (05/07/2013 00:45:00) Ce nter HEMATOLOGY Stomatocyte Slight None Seen 05/07 [facility] [place] *ABN Medical (05/07/2013 00:45:00) Ce nter HEMATOLOGY Dohle Bodies Slight None Seen 05/07 [facility] [place] *ABN* Medical (05/07/2013 00:45:00) Ce nter HEMATOLOGY Large Plt Slight None Seen 05/07 ABN [place] *ABN Medical (05/07/2013 00:45:00) Ce nter HEMATOLOGY Tear Cell Slight None Seen 05/07 [facility] [place] *ABN Medical (05/07/2013 00:45:00) Ce nter HEMATOLOGY Target Cell Slight None Seen 05/07 [facility] [place] * Medical (05/07/2013 00:45:00) Ce nter HEMATOLOGY Polychrom Slight None Seen 05/07 Normal [facility] (05/07/2013 00:45:00) Ne dical Center HEMATOLOGY Hypochrom Slight None Seen 05/07 Normal [facility] (05/07/2013 00:45:00) Ne dical Center HEMATOLOGY Microcyte 1+ None Seen 05/07 [facility] [place] * Medical (05/07/2013 00:45:00) Ce nter HEMATOLOGY Anisocyte 1+ None Seen 05/07 [facility] [place] * Medical (05/07/2013 00:45:00) Ce nter HEMATOLOGY Atypical 0.0 <=0.0 05/07 Normal [facility] Lymph [facility] HEMATOLOGY Myelocytes 1.0 <=0.0 05/07 [facility] HEMATOLOGY Toxic Gran Slight None Seen 05/07 [facility] [place] * Medical (05/07/2013 00:45:00) Ce nter HEMATOLOGY Elliptocyte Slight None Seen 05/07 [facility] [place] *ABN Medical (05/07/2013 00:45:00) Ce nter HEMATOLOGY Metamyelocyt 1.0 0.0 - 1.0 05/07 Normal [place] [facility] HEMATOLOGY Bands 3.0 0.0 - 11.0 05/07 Normal [facility] IMMUNOLOGY Wisner-HIV Negative Negative 05/07 NA [facility] 1/2 Ab *NA* Medical (05/07/2013 00:45:00) Ce nter CHEMISTRY Phosphorus 4.0 2.5 - 4.5 05/06 Normal [facility] CHEMISTRY Magnesium 2.1 1.8 - 2.4 05/06 Normal [place] [facility] CHEMISTRY AST 36 0 - 37 05/06 Normal [facility] CHEMISTRY Bili Total 0.7 0.2 - 1.3 05/06 Normal [facility] CHEMISTRY Bili Direct 0.4 0.0 - 0.3 05/06 HI [facility] CHEMISTRY Total 7.3 6.4 - 8.4 05/06 Normal [place] [facility] CHEMISTRY Alk Phos 277 39 - 136 05/06 [facility] CHEMISTRY ALT 33 0 - 65 05/06 Normal Medical Center CHEMISTRY Albumin Lvl 1.7 3.5 - 5.0 05/06 LOW [facility] CHEMISTRY Globulin 5.6 2.0 - 4.0 05/06 HI [facility] CHEMISTRY Bili 0.3 0.0 - 1.0 05/06 Normal [facility] CHEMISTRY A/G Ratio 0.3 0.7 - 1.6 05/06 LOW [facility] HEMATOLOGY Basophils 1.0 0.0 - 1.0 05/06 Normal [facility] HEMATOLOGY Plt Morph Normal 05/06 Normal [facility] (05/06/2013 00:27:00) Ne dical Center HEMATOLOGY Stomatocyte Slight None Seen 05/06 [facility] s Medical (05/06/2013 00:27:00) Ce nter HEMATOLOGY Basophils # 0.2 0.0 - 0.2 05/06 Normal Medical Center HEMATOLOGY Anisocyte 1+ None Seen 05/06 [facility] [place] *ABN* Medical (05/06/2013 00:27:00) Ce nter HEMATOLOGY Polychrom Slight None Seen 05/06 Normal [facility] (05/06/2013 00:27:00) Ne dical Center HEMATOLOGY Target Cell Slight None Seen 05/06 [facility] s *ABN* Medical (05/06/2013 00:27:00) Ce nter HEMATOLOGY Elliptocyte Slight None Seen 05/06 [facility] [place] *ABN* Medical (05/06/2013 00:27:00) Ce nter CHEMISTRY Magnesium 1.8 1.8 - 2.4 05/05 Normal [place] [facility] CHEMISTRY Phosphorus 3.9 2.5 - 4.5 05/05 Normal Medical Center CHEMISTRY Ca Norm mgdL 4.64 4.05/04 LOW [place] 03.02 Medical Center CHEMISTRY Ca Ion 1.18 1.05/04 Normal [place] 11.12 Medical Center CHEMISTRY Ca Ion mgdL 4.72 4.65 05/04 Normal [place] 03.02 Medical Center CHEMISTRY Ca Norm 1.16 1.05/04 Normal [place] . [facility] BEDSIDE Comment1 Notify 05/04 NA [place] GLUCOSE RN/ /2012 Medical TESTING Center BEDSIDE Gluc POC 118 70 - 99 05/04 HI <sup>9</sup>I [facility] GLUCOSE [place] nterpretive Medical TESTING Data: Center Upper Reportable Limit: 200 mg/dL. BEDSIDE Comment1 Notify 05/03 NA [place] GLUCOSE RN/ /2012 Medical TESTING Center BEDSIDE Gluc POC 99 70 - 99 05/03 Normal <sup>10</sup> [facility] GLUCOSE [place] Interpretive Medical TESTING Data: [place] Upper Reportable Limit: 200 mg/dL. BEDSIDE Comment1 Notify 05/03 NA [place] GLUCOSE RN/ /2012 Medical TESTING Center BEDSIDE Gluc POC 94 70 - 99 05/03 Normal <sup>11</sup> [facility] GLUCOSE [place] Interpretive Medical TESTING Data: [place] Upper Reportable Limit: 200 mg/dL. CHEMISTRY Ca Norm mgdL 4.80 05/03 Normal [place] 03.02 Medical Center CHEMISTRY Ca Ion 1.15 .05/03 LOW [place] 11.12 Medical Center CHEMISTRY Ca Norm 1.20 .05/03 Normal [place] 11.12 Medical Center CHEMISTRY Ca Ion mgdL 4.60 .05/03 LOW [place] 03.02 Medical Center CHEMISTRY Ca Norm mgdL 5.24 4.05/02 HI [place] 03.02 Medical Center CHEMISTRY Ca Norm 1.31 1.05/02 HI [place] 11.12 Medical Center CHEMISTRY Ca Ion mgdL 4.36 4.05/02 LOW [facility] 03.02 Medical Center CHEMISTRY Ca Ion 1.09 1.16 - 05/02 LOW [facility] 1.30 [facility] IMMUNOLOGY CRP, High >190.0 05/02 [place] <sup>31</sup> [place] Sensitivity Interpretive Medical Data: Low Center Risk: <1.0 mg/L
Aver age Risk: 1.0 - 3.0 mg/L
High Risk: >3.0 mg/L
Infl ammation: >10.0 mg/L IMMUNOLOGY Prealbumin 12.1 18.0 - 05/02 LOW [facility] 45.0 [facility] Microbiolo Culture: 05/01 [facility] gy Aspirate/Bod Medical [facility] Fluid/Tissue CHEMISTRY Vanco Lvl 30.1 05/01 NA <sup>19</sup> [facility] Interpretive Medical Data: Center Therapeutic Range:
Trough: 10 - 20 ug/mL
Peak: 20 - 40 ug/mL
Potential Toxicity: >80 ug/mL Microbiolo Culture: 04/30 [facility] gy Blood /2012 [facility] Microbiolo Culture: 04/30 [facility] [place] [facility] Blood /2012 [facility] URINALYSIS UA Ketones Negative mg/dL Negative 04/30 [facility] (04/30/2013 02:36:27) Ce nter URINALYSIS UA 0.1 - 1.0 04/30 [facility] Urobilinogen [facility] URINALYSIS UA Mucus Few /LPF None Seen 04/30 [facility] *NA* [facility] (04/30/2013 02:36:27) Ce nter URINALYSIS UA Sq Epi Occasional /LPF Few 04/30 [facility] (04/30/2013 02:36:27) Ce nter URINALYSIS UA WBC <1 0 - 5 04/30 Normal [facility] URINALYSIS UA RBC 6 0 - 2 04/30 [facility] URINALYSIS UA Color Yellow Yellow 04/30 NA [facility] (04/30/2013 02:36:27) Ce nter URINALYSIS UA Turbidity Clear Clear 04/30 Normal [facility] (04/30/2013 02:36:27) /2012 Me dical Center URINALYSIS UA Bili Negative Negative 04/30 NA [place] *NA* Medical (04/30/2013 02:36:27) Ce nter URINALYSIS UA Blood Small Negative 04/30 ABN [place] *ABN* Medical (04/30/2013 02:36:27) Ce nter URINALYSIS UA Nitrite Negative Negative 04/30 Normal [facility] (04/30/2013 02:36:27) Ne dical Center URINALYSIS UA Leuk Est Negative Negative 04/30 [place] (04/30/2013 02:36:27) Ne dical Center URINALYSIS UA Protein 70 mg/dL Negative 04/30 ABN *ABN* Medical (04/30/2013 02:36:27) Ce nter URINALYSIS UA Glucose Negative mg/dL Negative 04/30 NA *NA* Medical (04/30/2013 02:36:27) Ce nter URINALYSIS UA Spec Grav 1.019 <=1.030 04/30 Normal [facility] URINALYSIS UA pH 6.5 5.0 - 8.0 04/30 Normal [facility] HEMATOLOGY Stomatocyte Slight None Seen 04/30 [place] *[place]* Medical (04/30/2013 00:47:00) Ce nter HEMATOLOGY Elliptocyte Slight None Seen 04/30 [place] *[place]N* Medical (04/30/2013 00:47:00) Ce nter HEMATOLOGY Polychrom Slight None Seen 04/30 Normal [facility] (04/30/2013 00:47:00) Ne dical Center HEMATOLOGY Plt Morph Normal 04/30 Normal [facility] (04/30/2013 00:47:00) Ne dical Center CHEMISTRY AST 67 0 - 37 04/28 [facility] Medical Center CHEMISTRY Total 5.3 6.4 - 8.4 04/28 LOW [facility] CHEMISTRY ALT 80 0 - 65 04/28 [facility] CHEMISTRY Bili Total 1.5 0.2 - 1.3 04/28 [facility] CHEMISTRY Alk Phos 238 39 - 136 04/28 [facility] Medical Center CHEMISTRY Bili Direct 1.1 0.0 - 0.3 04/28 [place] [facility] CHEMISTRY Albumin Lvl 1.7 3.5 - 5.0 04/28 LOW [place] [facility] CHEMISTRY Globulin 3.6 2.0 - 4.0 04/28 Normal [facility] CHEMISTRY Bili 0.4 0.0 - 1.0 04/28 Normal [place] Indirect [facility] CHEMISTRY A/G Ratio 0.5 0.7 - 1.6 04/28 LOW [place] [facility] BLOOD BANK FFP product Product available 04/28 Normal [facility] RESULTS (04/28/2013 08:18:00[facility] RBC product Product available 04/28 Normal [facility] RESULTS (04/28/2013 08:18:00) [facility] A/G Ratio 0.5 0.7 - 1.6 04/28 LOW [facility] CHEMISTRY Bili 0.3 0.0 - 1.0 04/28 Normal [place] Indirect [facility] CHEMISTRY Globulin 3.3 2.0 - 4.0 04/28 Normal [place] [facility] CHEMISTRY Bili Total 1.2 0.2 - 1.3 04/28 Normal [place] [facility] CHEMISTRY Bili Direct 0.9 0.0 - 0.3 04/28 [facility] CHEMISTRY Total 4.8 6.4 - 8.4 04/28 LOW [place] [facility] CHEMISTRY Alk Phos 172 39 - 136 04/28 [facility] CHEMISTRY Albumin Lvl 1.5 3.5 - 5.0 04/28 LOW [place] [facility] CHEMISTRY AST 65 0 - 37 04/28 [facility] [place] [facility] CHEMISTRY ALT 80 0 - 65 04/28 [facility] [place] [facility] HEMATOLOGY PT 13.6 12.0 - 04/28 Normal [place] 14.7 Medical [place] HEMATOLOGY PTT 37.3 22.9 - 04/28 [place] <sup>28</sup> [place] 35.8 /2012 Interpretive Medical Data: [facility] Therapeutic Range: 57 - 92 Seconds HEMATOLOGY INR 1.02 0.85 - 04/28 Normal <sup>27</sup> [place] 1.17 Interpretive Medical Data: Center RECOMMENDED RANGES FOR PROTIME INR:
2.0-3.0 for most medical and surgical thromboemboli c states.
2.5-3.5 for artificial heart valves and recurrent embolism.<br/ >
INR SHOULD BE USED ONLY FOR PATIENTS ON STABLE ANTICOAGULANT THERAPY. BLOOD BANK ABO/Rh A POS 04/28 Unknown [facility] RESULTS [facility] BLOOD BANK Antibody Negative 04/28 Normal [facility] RESULTS Scrn (04/28/2013 00:01:00) /2012 Ne dical Center Microbiolo Culture: 04/27 [facility] gy Aspirate/ Medical [facility] Fluid/Tissue CHEMISTRY Vanco Tr TND 1630 04/27 NA [facility] CHEMISTRY Vanco Tr 13.0 04/27 NA <sup>20</sup> [facility] Interpretive Medical Data: [place] Therapeutic Range:
Trough: 10 - 20 ug/mL
Peak: 20 - 40 ug/mL
Potential Toxicity: >80 ug/mL HEMATOLOGY G-value 12.3 5.0 - 11.6 04/26 HI [facility] HEMATOLOGY Max Amp 71 52 - 71 04/26 Normal [facility] HEMATOLOGY Estimated % 0.0 0.0 - 7.5 04/26 Normal [facility] s [facility] HEMATOLOGY ACT (TEG) 105 86 - 118 04/26 Normal [facility] HEMATOLOGY R-time 0.6 0.4 - 0.7 04/26 Normal [facility] HEMATOLOGY K-time 1.2 0.6 - 2.3 04/26 Normal [facility] HEMATOLOGY Angle 74 64 - 80 04/26 Normal [facility] HEMATOLOGY [place] 0.4 04/26 NA [facility] HEMATOLOGY Rapid TEG Citrated 04/26 [facility] Sample Type [facility] Blood [place] CHEMISTRY Vanco Tr TND 1700 04/25 NA [facility] CHEMISTRY Vanco Tr 16.6 04/25 NA <sup>21</sup> [facility] Interpretive Medical Data: [place] Therapeutic Range:
Trough: 10 - 20 ug/mL
Peak: 20 - 40 ug/mL
Potential Toxicity: >80 ug/mL CHEMISTRY POC A HCO3 28 22 - 26 04/25 [facility] Medical [place] CHEMISTRY POC A PCO2 49 35 - 45 04/25 [facility] CHEMISTRY POC A BE 2 -2-2 - 2 04/25 Normal [facility] CHEMISTRY POC A O2 Sat 99.0 95.0 - 07 Normal [place] 100.0 Medical Center CHEMISTRY POC A PO2 154 80 - 100 04/25 HI Medical [place] CHEMISTRY POC A Temp 37.0 04/25 NA [facility] CHEMISTRY POC A pH 7.36 7.35 - 04/25 Normal [place] 7.45 [facility] CHEMISTRY POC A Source ART 04/25 NA [facility] CHEMISTRY POC A LA 1.0 0.5 - 2.2 04/25 Normal [facility] CHEMISTRY POC A Glu 106 70 - 99 04/25 [facility] CHEMISTRY POC A PO2 163 80 - 100 04/25 [facility] [facility] CHEMISTRY POC A HCO3 29 22 - 26 04/25 HI [facility] CHEMISTRY POC A O2 Sat 99.0 95.0 - 07 Normal [place] 100.0 [facility] CHEMISTRY POC A PCO2 58 35 - 45 04/25 HI [facility] CHEMISTRY POC A BE 3 -2-2 - 2 04/25 [facility] CHEMISTRY POC A K 3.8 3.5 - 5.1 04/25 Normal [facility] CHEMISTRY POC A Ca Ion 1.09 1.16 - 07 LOW [facility] 1.30 [facility] CHEMISTRY POC A Hct 21.0 42.0 - 04/25 LOW [place] 54.0 [facility] CHEMISTRY POC A Na 147 135 - 145 04/25 [facility] CHEMISTRY POC A Temp 37.0 04/25 NA [facility] CHEMISTRY POC A pH 7.31 7.35 - 04/25 LOW [place] 7.45 [facility] CHEMISTRY POC A Source ART 04/25 NA [facility] HEMATOLOGY K-time 1.5 0.6 - 2.3 04/25 Normal [facility] HEMATOLOGY Estimated % 0.6 0.0 - 7.5 04/25 [place] [facility] HEMATOLOGY Max Amp 67 52 - 71 04/25 Normal [facility] HEMATOLOGY G-value 9.9 5.0 - 11.6 04/25 Normal [facility] HEMATOLOGY Angle 72 64 - 80 04/25 Normal [facility] HEMATOLOGY ACT (TEG) 152 86 - 118 04/25 HI [facility] HEMATOLOGY R-time 1.1 0.4 - 0.7 04/25 HI [facility] HEMATOLOGY Rapid TEG Citrated 04/25 NA [facility] Sample Type Whole [facility] [place] HEMATOLOGY [place] 0.9 04/25 NA [facility] CHEMISTRY Lipase Lvl 387 73 - 393 04/25 Normal [facility] IMMUNOLOGY Prealbumin 6.6 18.0 - 04/25 LOW [facility] 45.0 [facility] IMMUNOLOGY CRP, High >190.0 mg/L 32 04/25 Normal <sup>32</sup > [facility] Sensitivity (04/25/2013 00:05:00) Interp retive Medical Data: Low Center Risk: <1.0 mg/L
Aver age Risk: 1.0 - 3.0 mg/L
High Risk: >3.0 mg/L
Infl ammation: >10.0 mg/L HEMATOLOGY Max Amp 65 52 - 71 04/24 Normal [facility] HEMATOLOGY Estimated % 0.0 0.0 - 7.5 04/24 Normal [place] [facility] HEMATOLOGY G-value 9.3 5.0 - 11.6 04/24 Normal [facility] HEMATOLOGY Angle 74 64 - 80 04/24 Normal [facility] HEMATOLOGY K-time 1.2 0.6 - 2.3 04/24 Normal [facility] HEMATOLOGY [place] 0.2 04/24 NA [facility] HEMATOLOGY Rapid TEG Citrated 04/24 NA [facility] Sample Type Whole [facility] [place] HEMATOLOGY R-time 0.5 0.4 - 0.7 04/24 Normal [facility] HEMATOLOGY ACT (TEG) 97 86 - 118 04/24 Normal [facility] HEMATOLOGY Toxic Gran Slight None Seen 04/24 ABN [place] *ABN* /2012 Medical (04/24/2013 01:49:00) Ce nter HEMATOLOGY Dohle Bodies Slight None Seen 04/24 [facility] [place] as *ABN* Medical (04/24/2013 01:49:00) Ce nter HEMATOLOGY Large Plt Slight None Seen 04/24 [facility] [place] *ABN* Medical (04/24/2013 01:49:00) Ce nter HEMATOLOGY Anisocyte 1+ None Seen 04/24 ABN [place] *ABN* Medical (04/24/2013 01:49:00) Ce nter HEMATOLOGY Hypochrom Slight None Seen 04/24 Normal [facility] (04/24/2013 01:49:00) [facility] CHEMISTRY POC A Glu 107 70 - 99 04/24 HI [facility] CHEMISTRY POC A Source ART 04/24 NA [facility] CHEMISTRY POC A Temp 37.0 04/24 NA [facility] CHEMISTRY POC A pH 7.46 7.35 - 04/24 [facility] 7.45 [facility] CHEMISTRY POC A PO2 108 80 - 100 04/24 [facility] CHEMISTRY POC A HCO3 28 22 - 26 04/24 [facility] CHEMISTRY POC A PCO2 39 35 - 45 04/24 Normal [facility] CHEMISTRY POC A BE 4 -2-2 - 2 04/24 [facility] CHEMISTRY POC A K 3.7 3.5 - 5.1 04/24 Normal [facility] CHEMISTRY POC A O2 Sat 98.0 95.0 - 04/24 [facility] 100.0 [facility] CHEMISTRY POC A Ca Ion 1.09 1.16 - 04/24 LOW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 Results Value Date Source Advance Directives Advance Directives No Advance 09/18/2013 [facility] Directives available. Advance Directives Advance Directives No Advance 07/31/2013 [facility] Direct[facility] available. Advance Directives Advance Directives No Advance 07/17/2013 [facility] Direct[facility] available. Advance Directives Advance Directives No Advance 06/14/2013 [facility] Direct[facility] available. Advance Directives Advance Directives No Advance 06/02/2013 [facility] Directives available. Functional Status No Data Provided for This Section
--- OUTSIDE RECORDS SUMMARY | 2020-03-10 21:50 | XMS REPORT ---
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 06/01/14 12:38:00, Stop date: 06/01/14 12:38:00 Exparel 2013-0 Yes Notes: 06-01 (Same as: [place] 17:23: Exparel) Medical NOT Center FOR IV use Postoperat tasha analgesia: Infiltrati on (local): Dose is based on surgical site and volume required to cover the area (in general, the maximum total dose is 266 mg). Bunionecto my: 7 mL into the tissues surroundin g the osteotomy and 1 mL into the subcutaneo us tissue of the surgical site (total dose = 8 mL [106 mg]) Hemorrhoid ectomy: 30 mL (20 mL vial diluted with 10 mL NS) divided and administer ed as 6 injections of 5 mL each (total dose = 30 mL [266 mg]) Dilaudid 2013-0 No 1 mg, 06-01 Route: IV, [place] 17:21: ONCE, Medical 00 Dosing Center Weight 65, kg, PRN Pain, Start date: 06/01/14 12:21:00 Ofirmev No Notes: 06-01 Infuse [place] 17:00: over 15 Medical 00 minutes Center Do not exceed 4gm/day of acetaminop hen Hydromorpho No Notes: ne 06-01 (Same as: [place] 16:30: Dilaudid) Medical 00 conc = 0.5 Center mg/ml 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 Hydromorpho No Notes: ne 06-01 Same as: [place] 16:19: Dilaudid Medical 00 Center Meperidine No Notes: 06-01 (Same as: [place] 16:19: Demerol) Medical 00 "Use Center Precaution in Elderly, Seizure disorders, and Renal impairment " Naloxone No Notes: 06-01 Same as [place] 16:10: Narcan Medical 00 Center Ondansetron No Notes: 06-01 (Same as: [place] 16:10: Zofran) Medical 00 Center Calcium No 1,000 mL, Chloride 06-01 Rate: 125 [place] 0.0014 16:10: ml/hr, Medical MEQ/ML / 00 Infuse Center Potassium over: 8 Chloride hr, Route: 0.004 IV, Dosing MEQ/ML / Weight 65 Sodium kg, Total Chloride Volume: 0.103 1,000, MEQ/ML / Start Sodium date: Lactate 06/01/14 0.028 11:10:00, MEQ/ML Duration: Injectable 30 day, Solution Stop date: 07/01/14 11:09:00 Cefoxitin No Notes: 06-01 (Same As: [place] 13:00: Mefoxin) Medical 00 Center Alprazolam No 2 mg = 1 2 MG Oral 8-15 tab, PO, [place] Tablet 17:06: TID, Medical [Xanax] 00 Anxiety, 0 Center Refill(s) Docusate Yes 100 mg = 1 MH Sodium 100 7-31 cap, PO, [place] MG Oral 15:59: BID, Medical Capsule 00 Constipati Center [Colace] on, # 20 cap, 0 Refill(s) Acetaminoph Yes 1-2 tab, MH en 325 MG / 05-13 PO, Q4-6H, [place] Hydrocod[place] 15:59: Pain, # 30 Medical Bitartrate 00 tab, 0 Center 10 MG Oral Refill(s) Tablet [[facility] 10/325] Docusate Yes 100 mg = 1 MH Sodium 100 731 cap, PO, [place] MG Oral 15:54: BID, Medical Capsule 00 Constipati Center [Colace] on, # 20 cap, 0 Refill(s) Acetaminoph Yes 1-2 tab, MH en 325 MG / 05-13 PO, Q4-6H, [place] Hydro[place] 15:53: Pain, # 30 Medical Bitartrate 00 tab, 0 Center 10 MG Oral Refill(s) Tablet [[facility] 10/325] Acetaminoph No 1 tab, MH en 325 MG / 05-13 Route: PO, [place] Hydro[place] 15:24: Drug Form: Medical Bitartrate 00 TAB, Center 10 MG Oral Dosing Tablet Weight [[facility] 62.273, 10/325] kg, ONCE, STAT, Start date: 05/13/14 10:24:00, Stop date: 05/13/14 10:24:00 NS 1,000 mL No 1,000 mL, M H 05-13 Rate: 125 [place] 10:24: ml/hr, Medical 00 Infuse Center over: 8 hr, Route: IV, Dosing Weight 62.273 kg, Total Volume: 1,000, Start date: 05/13/14 5:24:00, Duration: 30 day, Stop date: 06/12/14 5:23:00 Sodium No 1,000 mL, MH Chloride 05-13 1,000 [place] 0.154 10:24: ml/hr, Medical MEQ/ML 00 Infuse Center Injectable Over: 1 Solution hr, Route: IV, ONCE, Priority: STAT, Dosing Weight 62.273 kg, Start date: 05/13/14 5:24:00, Duration: 1 doses or times, Stop date: 05/13/14 5:24:00 Morphine 2013- No Notes: 05-13 (Same [place] 09:32: as:[facility] Medical 00 e Sulfate) Center Morphine No 4 mg, 05-13 Route: [place] 08:08: IVP, Drug Medical 00 form: INJ, Center ONCE, Dosing Weight 62.273, kg, Priority: STAT, Start date: 05/13/14 3:08:00, Stop date: 05/13/14 3:08:00 Morphine No 8 mg, 05-05 Route: [place] 20:53: IVP, ONCE, Medical 00 Dosing Center Weight 62.273, kg, Start date: 05/05/14 15:53:00, Stop date: 05/05/14 15:53:00 Iohexol No Notes: 05-05 (Same [place] 16:08: as:[facility] [address]). Center Morphine No 6 mg, 05-05 Route: [place] 12:45: IVP, Drug Medical 00 form: INJ, Center ONCE, Dosing Weight 62.273, kg, Priority: STAT, Start date: 05/05/14 7:45:00, Stop date: 05/05/14 7:45:00 Acetaminoph Yes 1 tab, PO, en 325 MG / 05-05 Q4H, as [place] Hydrocodone 12:43: needed for Medical Bitartrate 00 pain Center 10 MG Oral Tablet Calcium No 1,000 mL, Chloride 05-05 1,000 [place] 0.0014 10:31: ml/hr, Medical MEQ/ML / 00 Infuse Center Potassium Over: 1 Chloride hr, Route: 0.004 IV, 1,000, MEQ/ML / Drug form: Sodium INJ, ONCE, Chloride Priority: 0.103 STAT, MEQ/ML / Dosing Sodium Weight Lactate 62.273 kg, 0.028 Start MEQ/ML date: Injectable 05/05/14 Solution 5:31:00, Duration: 1 doses or times, Stop date: 05/05/14 5:31:00 Morphine 2013-0 No Notes: 05-05 (Same [place] 10:31: as:[facility] Medical 00 e Sulfate) Center D5W 1/2NS + No Notes: KCL 20mEq/L 05-05 PREMIX IV [place] 1000ml 09:43: - Do Not Medical (Premix) 00 Alter Center 1,000 mL Lovenox No Notes: 05-05 (Same as: [place] 09:42: Lovenox) Medical 00 Center Acetaminoph No Notes: Do M H en 325 MG / 05-05 not exceed [place] Hydro[place] 09:40: 4gm/day of Medical Bitartrate [address] 10 MG Oral hen. Tablet (Same as: [facility] 325/10) Morphine No Notes: 05-05 (Same [place] 09:40: as:[facility] 00 e Sulfate) Center Docusate No Notes: 05-05 (Same as: [place] 09:40: Colace) Medical 00 (Do Not Center Crush) Morphine No 8 mg, 05-05 Route: [place] 08:07: IVP, Drug Medical 00 form: INJ, Center ONCE, Dosing Weight 62.273, kg, Priority: STAT, Start date: 05/05/14 3:07:00, Stop date: 05/05/14 3:07:00 Sodium No 1,000 mL, MH Chloride 05-05 1,000 [place] 0.154 07:40: ml/hr, Medical MEQ/ML 00 Infuse Center Injectable Over: 1 Solution hr, Route: IV, 1,000, Drug form: INJ, ONCE, Priority: STAT, Dosing Weight 62.273 kg, Start date: 05/05/14 2:40:00, Duration: 1 doses or times, Stop date: 05/05/14 2:40:00 Sodium No 1,000 mL, MH Chloride 05-05 1,000 [place] 0.154 07:39: ml/hr, Medical MEQ/ML 00 Infuse Center Injectable Over: 1 Solution hr, Route: IV, ONCE, Priority: STAT, Dosing Weight 62.273 kg, Start date: 05/05/14 2:39:00, Duration: 1 doses or times, Stop date: 05/05/14 2:39:00 Morphine No Notes: 05-05 (Same [place] 07:26: as:[facility] 00 e Sulfate) Center Zofran No Notes: 05-05 (Same as: 07:23: Zofran) Medical 00 Center Dilaudid No 1 mg, 05-05 Route: IV, [place] 07:23: ONCE, Medical 00 Dosing Center Weight 62.273, kg, Start date: 05/05/14 2:23:00, Stop date: 05/05/14 2:23:00 Acetaminoph Yes 1-2 tabs, M H en 325 MG / 04-21 PO, Q6H, [place] Hydrocod[place] 15:20: as needed M edical Bitartrate 00 for pain, Cent er 5 MG Oral # 50 tab, Tablet 0 [[facility] Refill(s) 5/325] Rocephin No 1 gm, 02-12 Route: IV, [place] 15:48: ONCE, Medical Dosing Center Weight 59.091, kg, Start date: 02/12/14 10:48:00, Stop date: 02/12/14 10:48:00 Ibuprofen No Notes: 02-08 (Same as: [place] 21:00: Advil) Medical Give with Center food. Acetaminoph No Notes: Max en 02-08 acetaminop [place] 21:00: hen 4000 Medical 00 mg/day (4 Center gm/day). (Same as: Tylenol Extra Strength) D5W 1/2NS + No 1,000 mL, M H KCL 20mEq/L 02-08 Rate: 100 [place] as 1000ml 10:57: ml/hr, Medical (Premix) 00 Infuse Center 1000 mL over: 10 hr, Route: IV, Dosing Weight 61.364 kg, Total Volume: 1,000, Start date: 02/08/14 5:57:00, Duration: 30 day, Stop date: 03/10/14 5:56:00 Flagyl No Notes: 02-07 (Same as: [place] 22:00: Flagyl) Medical 00 Take with Center food/ avoid alcohol Ciprofloxac No Notes: Do M H in 02-07 not [place] 22:00: refrigerat Medical 00 e Center Methadone No 20 mg, 2 4-27 tab, [place] 17:42: Route: PO, Medical 00 Drug form: [place] TAB, Q12H, Dosing Weight 61.364, kg, Priority: NOW, Start date: 02/07/14 12:42:00, Duration: 30 day, Stop date: 03/09/14 9:00:00 methadone Yes 10 mg = 1 10 mg oral -27 tab, PO, [place] tablet 16:01: Q6H, Pain, Medic al 00 0 [place] Refill(s) Carisoprodo Yes 350 mg = 1 l 350 MG -27 tab, PO, [place] Oral Tablet 16:01: Daily, 0 Ct dical [Soma] 00 Refill(s) [place] Acetaminoph Yes 1 tab, PO, en 325 MG / - BID, 0 [place] Hydrocodone 16:01: Refill(s) edical Bitartrate 00 [place] 10 MG Oral Tablet [[facility] 10/325] Acetaminoph No 1,000 mg, M H en 02-07 2 tab, [place] 15:27: Route: PO, Medical 00 Drug form: [place] TAB, Q6H, Dosing Weight 61.364, kg, PRN as needed for pain, Start date: 02/07/14 10:27:00, Duration: 30 day, Stop date: 03/09/14 10:26:00 Enoxaparin No Notes: 02-07 (Same as: [place] 14:00: Lovenox) Medical 00 [place] Sodium Yes 1,000 mL, Chloride 02-07 1,000 [place] 0.154 12:30: ml/hr, Medical MEQ/ML 00 Infuse [place] Injectable Over: 1 Solution hr, Route: IV, 1,000, Drug form: INJ, ONCE, Priority: STAT, Dosing Weight 61.364 kg, Start date: 02/07/14 7:30:00, Duration: 1 doses or times, Stop date: 02/07/14 7:30:00 Tramadol No Notes: Not 27 to exceed [place] 12:18: 400mg/day. Medical 00 (Same As: [place] Ultra) Saline No Notes: Flush 0.9% 02-07 (Same as: [place] 12:06: BD Medical Posiflush) Center Lactated No 1,000 mL, Ring[place] IV 02-07 Rate: 125 [place] 1,000 mL 12:06: ml/hr, Medical Infuse Center over: 8 hr, Route: IV, Dosing Weight 61.364 kg, Total Volume: 1,000, Start date: 02/07/14 7:06:00, Duration: 30 day, Stop date: 03/09/14 7:05:00 Docusate No Notes: 02-07 (Same as: [place] 12:06: Colace) Medical (Do Not Center Crush) Bisacodyl No Notes: 02-07 (Same As: [place] 12:06: Dulcolax, Medical Correctol) [place] (Do Not Crush) "Do Not Crush" Acetaminoph No 1 tab, en 325 MG / 02-07 Route: PO, [place] Hydrocodone 12:06: Dosing Medi danny Bitartrate 00 Weight Center 10 MG Oral 61.364, Tablet kg, Q4H, PRN Pain Score 1-3, Start date: 02/07/14 7:06:00, Duration: 30 day, Stop date: 03/09/14 7:05:00 Ibuprofen No Notes: 02-07 (Same as: [place] 12:06: Motrin) Medical "Do Not Center Crush" Take with food. Flagyl No 500 mg, 02-07 Route: [place] 11:47: IVPB, Medical 00 ONCE, Center Dosing Weight 61.364, kg, Priority: STAT, Start date: 02/07/14 6:47:00, Stop date: 02/07/14 6:47:00 Ciprofloxac No Notes: Do M H in 02-07 not [place] 11:46: refrigerat Medical 00 e Center Morphine No 6 mg, 02-07 Route: [place] 07:27: IVP, Drug Medical form: INJ, Center ONCE, Dosing Weight 61.364, kg, Priority: STAT, Start date: 02/07/14 2:27:00, Stop date: 02/07/14 2:27:00 Acetaminoph No Notes: Do M H en 325 MG / 01-18 not exceed [place] Hydro[place] 23:00: 4gm/day of Medical Bitartrate [address] 10 MG Oral hen. Tablet (Same as: [[facility] 10325] 325/10) Epinephrine Yes Notes: MH 0.01 MG/ML 01-18 (Same as: [place] / Lidocaine 21:31: Xylocaine M edical Hydrochlori 00 w/Epinephr Ce nter de 20 MG/ML ine) Injectable Solution Iohexol No Special MH 01-18 Instructio [place] 21:10: ns: Dose = Medical 00 2.2ml/kg, Center Max dose = 100ml -- "To be infused by Radiology Staff ONLY" Lactated No 1,000 mL, MH Ringers IV 01-18 Rate: 100 [place] 1,000 mL 20:36: ml/hr, Medical 00 Infuse Center over: 10 hr, Route: IV, Dosing Weight 61.364 kg, Total Volume: 1,000, Start date: 01/18/14 15:36:00, Duration: 30 day, Stop date: 02/17/14 15:35:00 Acetaminoph No 1 tab, MH en 325 MG / 01-18 Route: PO, [place] Hydrocod[place] 20:28: Dosing Medi danny Bitartrate 00 Weight Center 10 MG Oral 61.364, Tablet kg, ONCE, [[facility] Start 10325] date: 01/18/14 15:28:00, Stop date: 01/18/14 15:28:00 Acetaminoph No 1 tab, MH en 325 MG / 01-02 Route: PO, [place] Hydrocodone 05:00: Drug Form: Medical Bitartrate 00 TAB, Center 10 MG Oral Dosing Tablet Weight [[facility] 62.727, 10/325] kg, Q6H, Start date: 01/02/14 0:00:00, Duration: 30 day, Stop date: 01/31/14 18:00:00Do not exceed 4gm/day of acetaminop hen. (Same as: [facility] 325/10) Alprazolam No 0.25 mg, MH 0.25 MG 01-02 Route: PO, [place] Oral Tablet 02:00: Drug form: Medical [Xanax] 00 TAB, Center Bedtime, Dosing Weight 62.727, kg, Start date: 01/01/14 21:00:00, Duration: 30 day, Stop date: 01/30/14 21:00:00 Acetaminoph Yes 1-2 tab, MH en 325 MG / 3-21 PO, Q4-6H, [place] Hydrocod[place] 23:08: Pain, # 60 Medical Bitartrate 19 tab, 0 Center 10 MG Oral Refill(s) Tablet [[facility] 10/325] Carisoprodo Yes 350 mg = 1 MH l 350 MG 3-21 tab, PO, [place] Oral Tablet 22:31: Daily, # Me dical [Soma] 00 30 tab, 0 Center Refill(s) Acetaminoph No 1-2 tab, MH en 325 MG / 3-21 PO, Q4-6H, [place] Hydrocodone 22:31: Pain, # 30 Medical Bitartrate 00 tab, 0 Center 10 MG Oral Refill(s) Tablet [[facility] 10/325] Acetaminoph No 1-2 tab, MH en 325 MG / 3-21 PO, Q4-6H, [place] Hydrocodone 21:35: Pain, 0 Med ical Bitartrate 00 Refill(s) Cent er 10 MG Oral Tablet [[facility] 10/325] Ascorbic Yes 2 tab, MH Acid / 3-21 CHEW, [place] Biotin / 21:35: Daily, 0 Medic al Folic Acid 00 Refill(s) Cent er / Niacin / pantothenat e / pyridoxine / Riboflavin / Thiamine / Vitamin B 12 Soma No = 2 tab, MH 3-21 PO, Daily, [place] 21:35: 0 Medical 00 Refill(s) [place] Lyrica No 100 mg, 1 MH 3-21 cap, [place] 21:00: Route: PO, Medical 00 Drug form: [place] CAP, Q8H, Dosing Weight 62.727, kg, Start date: 01/01/14 16:00:00, Duration: 30 day, Stop date: 01/31/14 8:00:00([facility] as: Lyrica) Alprazolam No 0.25 mg, 1 M H 0.25 MG 3-21 tab, [place] Oral Tablet 20:40: Route: PO, Medical [Xanax] 00 Drug form: [place] TAB, Bedtime, Dosing Weight 62.727, kg, PRN as needed for anxiety, Start date: 01/01/14 15:40:00, Duration: 30 day, Stop date: 01/31/14 15:39:00Wi th food or milk (Same as: Xanax) Acetaminoph 2013-0 No 1 tab, en 325 MG / 3-21 Route: PO, [place] Hydro[place] 20:37: Drug Form: Medical Bitartrate 00 TAB, Center 10 MG Oral Dosing Tablet Weight [[facility] 62.727, 10/325] kg, Q6H, PRN Pain, Start date: 01/01/14 15:37:00, Duration: 30 day, Stop date: 01/31/14 15:36:00Do not exceed 4gm/day of acetaminop hen. (Same as: [facility] 325/10) Flexeril 2013- No 10 mg, 1 3-21 tab, [place] 20:36: Route: PO, Medical 00 Drug form: [place] TAB, Q8H, Dosing Weight 62.727, kg, Priority: NOW, Start date: 01/01/14 15:36:00, Duration: 30 day, Stop date: 01/31/14 8:00:00(Sa ct As: Flexeril) Oxycontin 2013- No 10 mg, 1 MH 3-21 tab, [place] 20:36: Route: PO, Medical 00 Drug form: [place] ERTAB, Q12H, Dosing Weight 62.727, kg, Priority: NOW, Start date: 01/01/14 15:36:00, Duration: 30 day, Stop date: 01/31/14 9:00:00Do not crush or chew. (Same as: OxyContin) celecoxib 2013-0 No 200 mg, 2 MH 3-21 cap, [place] 17:00: Route: PO, Medical 00 Drug form: [place] CAP, BID, Dosing Weight 62.727, kg, Start date: 01/01/14 12:00:00, Duration: 30 day, Stop date: 01/31/14 9:00:00NSA ID. Please check indication . Not for seizure. (Same As: CeleBREX ) Acetaminoph No 1 tab, en 325 MG / 21 Route: PO, [place] Hydrocod[place] 17:00: Drug Form: Medical Bitartrate 00 TAB, Center 10 MG Oral Dosing Tablet Weight [[facility] 62.727, 10/325] kg, Q6H, Start date: 01/01/14 12:00:00, Duration: 30 day, Stop date: 01/31/14 6:00:00Do not exceed 4gm/day of acetaminop hen. (Same as: [facility] 325/10) Tramadol No 100 mg, 2 MH 3-21 tab, [place] 15:50: Route: PO, Medical 00 Drug form: Center TAB, Q6H, Dosing Weight 62.727, kg, PRN Pain, Start date: 01/01/14 10:50:00, Duration: 30 day, Stop date: 01/31/14 10:49:00No t to exceed 400mg/day. (Same As: Ultram) Acetaminoph No 1 tab, en 325 MG / 01-01 Route: PO, [place] Hydro[place] 15:50: Drug Form: Medical Bitartrate 00 TAB, Center 10 MG Oral Dosing Tablet Weight [[facility] 62.727, 10/325] kg, Q4H, PRN Pain, Start date: 01/01/14 10:50:00, Duration: 30 day, Stop date: 01/31/14 10:49:00Do not exceed 4gm/day of acetaminop hen. (Same as: [facility] 325/10) Dilaudid No 0.5 mg, MH 21 0.25 mL, [place] 14:18: Route: IV, Medical 00 Drug form: Center INJ, Q3H, Dosing Weight 62.727, kg, PRN Pain, Start date: 01/01/14 9:18:00, Stop date: 01/31/14 9:17:00Sam e as: Dilaudid D5NS + KCL No 1,000 mL, MH 20mEq/L 01-01 Rate: 125 [place] 1000ml 14:16: ml/hr, Medical (Premix) 00 Infuse Center 1,000 mL over: 8 hr, Route: IV, Dosing Weight 62.727 kg, Total Volume: 1,000, Start date: 01/01/14 9:16:00, Duration: 30 day, Stop date: 01/31/14 9:15:00 Saline 2013-0 No 5 ml, MH Flush 0.9% 321 Route: [place] 14:16: IVP, Drug Medical 00 Form: INJ, Center Dosing Weight 62.727, kg, PRN, PRN Line Flush, Start date: 01/01/14 9:16:00, Duration: 30 day, Stop date: 01/31/14 9:15:00 Enoxaparin 2013- No 30 mg, 0.3 M H 3-21 mL, Route: [place] 14:00: SUB-Q, Medical 00 Drug form: Center INJ, [id number], Dosing Weight 62.727, kg, Start date: 01/01/14 9:00:00, Duration: 30 day, Stop date: 01/30/14 21:00:00 Ativan 2013-0 No 1 mg, 1 MH - tab, [place] 13:05: Route: PO, Medical 00 Drug form: Center TAB, TID, Dosing Weight 62.727, kg, PRN Anxiety, Start date: 01/01/14 8:05:00, Duration: 30 day, Stop date: 01/31/14 8:04:00([facility] as: Ativan) [facility] 2012-10 Yes (Active) [place] 10-325 MG 2-06 Physici Oral Tablet 17:47: ans 53 Colace 100 2012-10 Yes Jignesh 100 mg, 1 MH mg oral 1-11 Agusto cap, PO, [place] capsule 22:55: Kaplan BID, 30 Medic al 25 cap, Center Substituti on Allowed, CAP [facility] 2012-10 Yes Jignesh 1 tab, PO, MH 10/325 oral 1-11 Agusto Q6H, PRN, [place] tablet 22:55: Kaplan 40 tab, Medica l 11 Pain, Center Substituti on Allowed, Maintenanc e, TAB gentamicin 2012-10 No Anup 400 mg, 10 MH + Sodium 1-09 r Rasheed mL, Route: [place] Chloride 06:00: [facility] IV, Q24H, Medical 0.9% IV 100 00 Dosing Center mL Weight 56.818, kg, Start date: 08/22/13 0:00:00, Duration: 30 day, Stop date: 09/20/13 0:00:00(Sa me as Garamycin) vancomycin 2012-10 No Ijgnesh 1.25 gm, MH + Sodium 10-22 Agusto Route: IV, [place] Chloride 03:00: [place] Q12H, Medica l 0.9% IV 250 00 Dosing Center mL Weight 56.818, kg, Start date: 08/21/13 21:00:00, Stop date: 09/20/13 21:00:00(S obi As: Vancocin) Vancomycin FOR IV SET ONLY senna 8.6 2012-10 No Jignesh 8.6 mg, 1 MH mg oral 10-21 Agusto tab, [place] tablet 03:00: Kaplan Route: PO, Med ical 00 Drug Form: Center TAB, Dosing Weight 56.818, kg, Bedtime, Start date: 08/20/13 21:00:00, Duration: 30 day, Stop date: 09/18/13 21:00:00(S obi as: Senokot) Saline 2012-10 No Shree 10 mL, MH Flush 0.9% 10-19 Dez Route: [place] as 22:00: Christiano IVP, Drug Medical Form: INJ, Center Dosing Weight 56.818, kg, Q8H, Start date: 08/19/13 16:00:00, Duration: 30 day, Stop date: 09/18/13 8:00:00(Sa me as: BD Posiflush) Saline 2012-10 No Shree 10 mL, MH Flush 0.9% 10-19 Dez Route: [place] as 18:12: Christiano IVP, Drug Medical Form: INJ, Center Dosing Weight 56.818, kg, PRN, PRN Line Flush, Start date: 08/19/13 12:12:00, Duration: 30 day, Stop date: 09/18/13 12:11:00(S obi as: BD Posiflush) LR IV 1,000 2012-10 No Jignesh 1,000 mL, MH mL 10-19 Agusto Rate: 100 [place] 06:15: Kaplan ml/hr, Medical 00 Infuse Center over: 10 hr, Route: IV, Dosing Weight 56.818 kg, Total Volume: 1,000, Start date: 08/19/13 0:15:00, Duration: 30 day, Stop date: 09/18/13 0:14:00 D5W 1/2NS + 2012-10 No Jignesh 1,000 mL, MH KCL 20mEq/L 10-19 Agusto Rate: 100 [place] 1000ml 06:01: [place] ml/hr, Medical (Premix) 00 Infuse Center 1,000 mL over: 10 hr, Route: IV, Dosing Weight 56.818 kg, Total Volume: 1,000, Start date: 08/19/13 0:01:00, Duration: 30 day, Stop date: 09/18/13 0:00:00PRE MIX IV - Do Not Alter Dilaudid 2012-10 No Anup 0.2 mg, MH 10-19 r Rasheed 0.1 mL, [place] 05:30: Goodenough Route: IV, M edical 00 Drug form: Center INJ, ONCE, Dosing Weight 56.818, kg, Start date: 08/18/13 23:30:00, Stop date: 08/18/13 23:30:00(S obi as: Dilaudid) vancomycin 2012-10 No Jignesh 1.25 gm, MH + Sodium 10-19 Agusto Route: IV, [place] Chloride 03:00: Kaplan [id number], Med ical 0.9% IV 250 00 Dosing Center mL Weight 56.818, kg, Start date: 08/18/13 21:00:00, Duration: 30 day, Stop date: 09/17/13 9:00:00(Sa me As: Vancocin) Vancomycin FOR IV SET ONLY Lovenox 2012-10 No [place] 30 mg, 0.3 M H 10-19 Alvarez mL, Route: [place] 00:00: SUB-Q, Medical 00 Drug form: Center INJ, [id number], Dosing Weight 56.818, kg, Start date: 08/18/13 18:00:00, Duration: 30 day, Stop date: 09/17/13 8:00:00(Sa me as: Lovenox) lidocaine 2012-10 No Jignesh 5 mL, MH 1% 10-18 Agusto Route: [place] 23:00: Kaplan INTRADERM, Medic al 00 Drug Form: Center INJ, Dosing Weight 56.818, kg, ONCALL, Start date: 08/18/13 17:00:00, Duration: 1 day, Stop date: 08/19/13 16:59:00(S obi as: Xylocaine) D5W 1/2NS + 2012-10 No [place] 1,000 mL, KCL 20mEq/L 10-18 Alvarez Rate: 100 [place] 1000ml 06:01: ml/hr, Medical (Premix) 00 Infuse Center 1,000 mL over: 10 hr, Route: IV, Dosing Weight 56.818 kg, Total Volume: 1,000, Start date: 08/18/13 0:01:00, Duration: 30 day, Stop date: 09/17/13 0:00:00PRE MIX IV - Do Not Alter Celebrex 2012-10 No [place] 200 mg, 2 M H 10-18 [place] cap, [place] 03:00: Route: PO, Medical 00 Drug form: Center CAP, Q12H, Dosing Weight 59.091, kg, Start date: 08/17/13 21:00:00, Duration: 30 day, Stop date: 09/16/13 9:00:00NSA ID. Please check indication . Not for seizure. (Same As: Celebrex) [place] 2012-10 No Anup 1 tab, / oral 10-18 casimiro Iqbal Route: PO, [place] tablet 02:36: [place] Drug Form: Medical 00 TAB, Center Dosing Weight 56.818, kg, Q6H, PRN Pain, Start date: 08/17/13 20:36:00, Duration: 30 day, Stop date: 09/16/13 20:35:00Do not exceed 4gm/day of acetaminop hen. (Same as: [place] 325/10) vancomycin 2012-10 No Jignesh 1 gm, 1-05 Agusto Route: [place] 02:00: [place] IVPB, Drug Medic al 00 form: INJ, Center [id number], Dosing Weight 59.091, kg, Start date: 08/17/13 20:00:00, Duration: 30 day, Stop date: 09/16/13 8:00:00(Sa me As: Vancocin) Lyrica 2012-10 No [place] 100 mg, 1 MH 1- [place] cap, [place] 22:00: Route: PO, Medical 00 Drug form: Center CAP, Q8H, Dosing Weight 59.091, kg, Start date: 08/17/13 16:00:00, Duration: 30 day, Stop date: 09/16/13 10:00:00(S obi as: Lyrica) tramadol 2012-10 No [place] 100 mg, 2 M H 1-04 [place] tab, [place] 16:29: Route: PO, Medical 00 Drug form: [place] TAB, Q6H, Dosing Weight 59.091, kg, PRN Pain, Start date: 08/17/13 10:29:00, Duration: 30 day, Stop date: 09/16/13 10:28:00No t to exceed 400mg/day. (Same As: Ultram) ketorolac 2012-10 No [place] 30 mg, 1 M H 10-17 [place] mL, Route: [place] 16:27: IV, Drug Medical 00 form: INJ, Center ONCE, Dosing Weight 59.091, kg, Start date: 08/17/13 10:27:00, Duration: 1 doses or times, Stop date: 08/17/13 10:27:00(S obi as:Toradol ) IV bolus must be given >15 seconds. Give IM administra tion slowly and deeply into the muscle. Not for use > 4 days morphine 2012-10 No Tommy Gonzalez 4 mg, 1 M H Sulfate -04 mL, Route: [place] 12:00: IVP, Drug Medical 00 form: INJ, Center ONCE, Dosing Weight 59.091, kg, Start date: 08/17/13 6:00:00, Stop date: 08/17/13 6:00:00(Sa me as:MORPhin e Sulfate) vancomycin 2012-10 No Elo 1 gm, 10-17 Blair Route: IV, [place] 12:00: Drug form: Medical 00 INJ, Center ABXQ6H, Dosing Weight 59.091, kg, Start date: 08/17/13 6:00:00, Duration: 30 day, Stop date: 09/16/13 0:00:00(Sa me As: Vancocin) [place] 2012-10 No Paul Upton 1 tab, MH 10/325 oral 10-17 [place] Route: PO, [place] tablet 10:00: Dosing Medical 00 Weight Center 59.091, kg, Q4H, Start date: 08/17/13 4:00:00, Duration: 30 day, Stop date: 09/16/13 0:00:00 Benadryl 2012-10 No Tommy Gonzalez 25 mg, 0.5 MH 1-04 mL, Route: [place] 08:17: IVP, Drug Medical 00 form: INJ, Center ONCE, Dosing Weight 59.091, kg, PRN Itching, Start date: 08/17/13 2:17:00(Sa me as: Benadryl) morphine 2012-10 No Tommy Gonzalez 4 mg, 1 M H Sulfate 04 mL, Route: [place] 08:16: IVP, Drug Medical 00 form: INJ, Center ONCE, Dosing Weight 59.091, kg, Start date: 08/17/13 2:16:00, Stop date: 08/17/13 2:16:00(Sa me as:MORPhin e Sulfate) Dilaudid 2012-10 No Brooklyn 0.5 mg, 1-04 Alvarez 0.25 mL, [place] 07:07: Route: IV, Medical 00 Drug form: Center INJ, Q3H, Dosing Weight 59.091, kg, PRN Pain Score 7-10, Start date: 08/17/13 1:07:00, Duration: 30 day, Stop date: 09/16/13 1:06:00(Sa me as: Dilaudid) Benadryl 2012-10 No Tommy Gonzalez 25 mg, 0.5 MH 1-04 mL, Route: [place] 06:34: IVP, Drug Medical 00 form: INJ, Center ONCE, Dosing Weight 59.091, kg, PRN Allergic reaction, Start date: 08/17/13 0:34:00(Sa me as: Benadryl) Dilaudid 2012-10 No Tommy Gonzalez 0.5 mg, M H 10-17 Route: [place] 06:28: IVP, ONCE, Medical 00 Dosing Center Weight 59.091, kg, Priority: STAT, Start date: 08/17/13 0:28:00, Stop date: 08/17/13 0:28:00 morphine 2012-10 No Tommy Gonzalez 4 mg, 1 M H Sulfate 1-04 mL, Route: [place] 06:27: IVP, Drug Medical 00 form: INJ, Center ONCE, Dosing Weight 59.091, kg, Start date: 08/17/13 0:27:00, Stop date: 08/17/13 0:27:00(Sa me as:MORPhin e Sulfate) Colace 100 2012-10 No Paul Won 100 mg, 1 MH mg oral 10-17 [place] cap, [place] capsule 06:15: Route: PO, Medi danny 00 Drug form: Center CAP, BID, Dosing Weight 59.091, kg, Priority: STAT, Start date: 08/17/13 0:15:00, Duration: 30 day, Stop date: 09/15/13 17:00:00(S obi as: Colace) (Do Not Crush) gentamicin 2012-10 No Jignesh 414 mg, M H + Sodium 10-17 Agusto 10.35 mL, [place] Chloride 06:13: Kaplan Route: IV, edical 0.9% IV 100 00 [id number], Cent er mL Dosing Weight 59.091, kg, Priority: STAT, Start date: 08/17/13 0:13:00, Duration: 30 day, Stop date: 09/15/13 0:13:00(Sa me as Garamycin) D5W 1/2NS + 2012-10 No [place] 1,000 mL, KCL 20mEq/L 10-17 Alvarez Rate: 100 [place] 1000ml 06:11: ml/hr, Medical ([facility]) 00 Infuse Center 1,000 mL over: 10 hr, Route: IV, Dosing Weight 59.091 kg, Total Volume: 1,000, Priority: STAT, Start date: 08/17/13 0:11:00, Duration: 30 day, Stop date: 09/16/13 0:10:00PRE MIX IV - Do Not Alter Lactated 2012-10 No Tommy Gonzalez 1,000 mL, Ringers 1 Rate: [place] (Bolus) IV 04:44: 1,000 Medica l 1,000 mL 00 ml/hr, [place] Infuse over: 1 hr, Route: IV, Dosing Weight 59.091 kg, Total Volume: 1,000, [place] Dose, Priority: STAT, Start date: 08/16/13 22:44:00, Duration: 1 doses or times, Stop date: 08/16/13 23:43:00 Lactated 2012-10 No Tommy Gonzalez 1,000 mL, MH Ringers 10-17 Rate: [place] (Bolus) IV 04:27: 1,000 Medica l 1000 mL 00 ml/hr, Center Infuse over: 1 hr, Route: IV, Dosing Weight 59.091 kg, Total Volume: 1,000, [place] Dose, Priority: STAT, Start date: 08/16/13 22:27:00, Duration: 1 doses or times, Stop date: 08/16/13 23:26:00 morphine 2012-10 No Tommy Gonzalez 8 mg, 2 M H Sulfate 104 mL, Route: [place] 03:47: IVP, Drug Medical 00 form: INJ, Center ONCE, Dosing Weight 59.091, kg, Priority: STAT, Start date: 08/16/13 21:47:00, Stop date: 08/16/13 21:47:00(S obi as:MORPhin e Sulfate) cefepime 2012-10 No Tommy Gonzalez 1 gm, 04 Route: [place] 03:46: IVPB, Drug Medical 00 form: INJ, Center ONCE, Dosing Weight 59.091, kg, Priority: STAT, Start date: 08/16/13 21:46:00, Stop date: 08/16/13 21:46:00(S obi As: Maxipime) vancomycin 2012-10 No Tommy Gonzalez 1 gm, M H 04 Route: [place] 03:46: IVPB, Drug Medical 00 form: INJ, Center ONCE, Dosing Weight 59.091, kg, Priority: STAT, Start date: 08/16/13 21:46:00, Stop date: 08/16/13 21:46:00(S obi As: Vancocin) Flagyl 2012-10 No Tommy Gonzalez 500 mg, 04 100 mL, [place] 03:46: Route: Medical 00 IVPB, Drug Center form: INJ, ONCE, Dosing Weight 59.091, kg, Priority: STAT, Start date: 08/16/13 21:46:00, Stop date: 08/16/13 21:46:00(S obi as: Flagyl) Avoid alcohol. Lactated 2012-10 No Tommy Gonzalez 1,000 mL, MH Ringers 1-04 Rate: [place] (Bolus) IV 03:08: 1,000 Medica l 1,000 mL 00 ml/hr, Center Infuse over: 1 hr, Route: IV, Dosing Weight 59.091 kg, Total Volume: 1,000, [place] Dose, Priority: STAT, Start date: 08/16/13 21:08:00, Duration: 1 doses or times, Stop date: 08/16/13 22:07:00 morphine 2012-10 No Mercy 4 mg, 1 M H Sulfate 1-04 M Slimp mL, Route: William as 02:48: IVP, Drug Medical 00 form: INJ, Center ONCE, Dosing Weight 59.091, kg, Priority: STAT, Start date: 08/16/13 20:48:00, Stop date: 08/16/13 20:48:00(S obi as:MORPhin e Sulfate) Omnipaque 2012-10 No Mercy 86 mL, M H 350mg/ml 1-04 M Slimp Route: [place] 02:44: IVP, Drug Medical 00 Form: Center SOLN, Dosing Weight 59.091, kg, ONCALL, STAT, Start date: 08/16/13 20:44:00, Duration: 1 doses or times, Weight = 60 - 74kg -- "To be infused by Radiology Staff ONLY"Weigh t = 60 - 74kg -- "To be infused by Radiology Staff ONLY"(Same as:Omnipaq ue 350). morphine 2012-10 No Mercy 4 mg, 1 M H Sulfate 1-04 M Slimp mL, Route: [place] as 02:01: IVP, Drug Medical 00 form: INJ, Center ONCE, Dosing Weight 59.091, kg, Priority: STAT, Start date: 08/16/13 20:01:00, Stop date: 08/16/13 20:01:00(S obi as:MORPhin e Sulfate) NS (Bolus) 2012-10 No Mercy 1,000 mL, MH IV 1,000 mL 1-04 M Slimp Rate: [place] 02:01: 1,000 Medical 00 ml/hr, Center Infuse over: 1 hr, Route: IV, Dosing Weight 59.091 kg, Total Volume: 1,000, Priority: STAT, Start date: 08/16/13 20:01:00, Duration: 1 doses or times, Stop date: 08/16/13 21:00:00, Bolus DoseBolus Dose [place] 2012-10 No 1 tab, PO, MH 10/325 oral 1-04 Q6H, PRN, William as tablet 01:34: as needed Medica l 07 for pain, Center Substituti on Allowed, Maintenanc e Hydrocodone 2012-10 Yes ; Start [place] -Acetaminop 004 Date: Physici hen 5-325 05:00: 07/17/2013 an s MG Oral 00 (Active) Tablet Ibuprofen 2012-10 Yes ; Start [place] 800 MG Oral 004 Date: Physici Tablet 05:00: 07/17/2013 ans 00 (Active) No Active Yes No Active [facility] Medications 06-14 Medication Ph ysici 20:22: s ans 19 Lyrica No Krislynn 100 mg, 1 8-18 Valeria cap, [place] 21:00: Mueck Route: PO, Medica l 00 Drug form: Center CAP, Q8H, Dosing Weight 54.545, kg, Start date: 05/31/13 16:00:00, Duration: 30 day, Stop date: 06/30/13 8:00:00 Zoloft No Barbara 25 mg, 1 8-18 Abigail tab, [place] 17:00: Pierce Route: PO, Medic al 00 Drug form: Center TAB, Q24H, Dosing Weight 54.545, kg, Start date: 05/31/13 12:00:00, Duration: 30 day, Stop date: 06/29/13 12:00:00 [place] No Krislynn 1 tab, 10/325 oral 8-18 Valeria Route: PO, [place] tablet 14:28: Mueck Drug Form: Medi danny 00 TAB, Center Dosing Weight 54.545, kg, Q4H, PRN Pain, Start date: 05/31/13 9:28:00, Duration: 30 day, Stop date: 06/30/13 9:27:00 tramadol No Krislynn 100 mg, 2 8-18 Valeria tab, [place] 14:28: Mueck Route: PO, Medica l 00 Drug form: [place] TAB, Q6H, Dosing Weight 54.545, kg, PRN Pain, Start date: 05/31/13 9:28:00, Duration: 30 day, Stop date: 06/30/13 9:27:00 Zosyn 2012-0 No Barbara 3.375 gm, MH 8-18 Abigail Route: [place] 10:00: Pierce IVPB, Drug Medic al 00 form: [place] PDR/INJ, ABXQ6H, Dosing Weight 54.545, kg, Start date: 05/31/13 5:00:00, Duration: 30 day, Stop date: 06/29/13 23:00:00 meropenem 2012-0 No Barbara 500 mg, MH 8-18 Abigail Route: [place] 06:00: Pierce IVPB, Drug Medic al 00 form: [place] PDR/INJ, ABXQ6H, Dosing Weight 54.545, kg, CrCL > = 50ml/min, Extended infusion, infuse over 3 hours, Start date: 05/31/13 1:00:00, Duration: 30 day, Stop date: 06/29/13 19:00:00 tobramycin 2012-0 No Barbara 60 mg, -18 Abigail Route: [place] 06:00: [place] IVPB, Medical 00 [id number], Center Dosing Weight 54.545, kg, Start date: 05/31/13 1:00:00, Duration: 30 day, Stop date: 06/29/13 17:00:00 Tylenol 2012-0 No Krislynn 1,000 mg, M H 05-31 Valeria 2 tab, [place] 05:50: Mueck Route: PO, Medica l 00 Drug form: [place] TAB, Q6H, Dosing Weight 54.545, kg, PRN as needed for fever, Start date: 05/31/13 0:50:00, Duration: 30 day, Stop date: 06/30/13 0:49:00 acetaminoph 2012-0 No Artur 975 mg, MH en 05-31 [place] Route: PO, [place] 05:44: Ilochonwu ONCE, Medical 00 Dosing Center Weight 54.545, kg, Priority: STAT, Start date: 05/31/13 0:44:00, Stop date: 05/31/13 0:44:00 enoxaparin 2012-0 No Barbara 30 mg, 0.3 MH 8-18 Abigail mL, Route: [place] 04:00: Stan SUB-Q, Medical 00 Drug form: Center INJ, [id number], Dosing Weight 54.545, kg, Start date: 05/30/13 23:00:00, Duration: 30 day, Stop date: 06/29/13 11:00:00 morphine 2012-0 No Krislynn 2 mg, 1 MH Sulfate 8-18 Valeria mL, Route: [place] 03:50: Mueck IVP, Drug Medical 00 form: INJ, Center Q2H, Dosing Weight 54.545, kg, PRN Pain Score 7-10, Start date: 05/30/13 22:50:00, Duration: 30 day, Stop date: 06/29/13 22:49:00 ondansetron 2012-0 No Barbara 4 mg, 2 MH 8-18 Abigail mL, Route: [place] 03:49: Pierce IVP, Drug Medica l 00 form: INJ, Center Q8H, Dosing Weight 54.545, kg, PRN Nausea & Vomiting, Start date: 05/30/13 22:49:00, Duration: 30 day, Stop date: 06/29/13 22:48:00 Phenergan 2012-0 No April Genaro 12.5 mg, MH 8-18 Ditto 0.5 mL, [place] 03:49: Route: Medical 00 IVPB, Drug Center form: INJ, ONCE, Dosing Weight 54.545, kg, PRN Nausea & Vomiting, Start date: 05/30/13 22:49:00, Stop date: 06/29/13 22:48:00 morphine 2012-0 No April Genaro 4 mg, 1 M H Sulfate 8-18 Ditto mL, Route: [place] 03:46: IVP, Drug Medical 00 form: INJ, Center ONCE, Dosing Weight 54.545, kg, Start date: 05/30/13 22:46:00, Stop date: 05/30/13 22:46:00 D5W 1/2NS + 2012-0 No Barbara 1,000 mL, MH KCL 20mEq/L 8-18 Abigail Rate: 80 [place] 1000ml 03:30: [place] ml/hr, Medical ([facility]) 00 Infuse Center 1,000 mL over: 12.5 hr, Route: IV, Dosing Weight 54.545 kg, Total Volume: 1,000, Start date: 05/30/13 22:30:00, Duration: 30 day, Stop date: 06/29/13 22:29:00 Zosyn 2012-0 No Barbara 3.375 gm, MH 8-18 Abigail Route: [place] 03:30: [place] IVPB, Drug Medic al 00 form: Center PDR/INJ, ONCE, Dosing Weight 54.545, kg, Priority: STAT, Start date: 05/30/13 22:30:00, Stop date: 05/30/13 22:30:00 morphine 2012-0 No Barbara 4 mg, 1 MH Sulfate 8-18 Abigail mL, Route: [place] 03:25: [place] IVP, Drug Medica l 00 form: INJ, Center Q4H, Dosing Weight 54.545, kg, PRN Pain Score 7-10, Start date: 05/30/13 22:25:00, Duration: 30 day, Stop date: 06/29/13 22:24:00 ondansetron 2012-0 No Barbara 4 mg, 2 MH 8-18 Abigail mL, Route: [place] 03:25: Pierce IVP, Drug Medica l 00 form: INJ, Center Q24H, Dosing Weight 54.545, kg, PRN Nausea & Vomiting, Start date: 05/30/13 22:25:00, Duration: 30 day, Stop date: 06/29/13 22:24:00 Omnipaque 2012-0 No Artur 86 mL, MH 350mg/ml 8-18 [place] Route: [place] 02:50: Ilochonwu IVP, Drug Med ical 00 Form: Center SOLN, Dosing Weight 54.545, kg, ONCALL, STAT, Start date: 05/30/13 21:50:00, Duration: 1 doses or times, Dose = 2.2ml/kg, Max dose = 100ml -- "To be infused by Radiology Staff ONLY"Dose = 2.2ml/kg, Max dose = 100ml -- "To be infused by Radiology Staff ONLY" NS (Bolus) No Barbara 1,000 mL, MH IV 1,000 mL 8-18 Abigail Rate: [place] 02:27: Stan 1,000 Medical 00 ml/hr, Center Infuse over: 1 hr, Route: IV, Dosing Weight 54.545 kg, Total Volume: 1,000, Priority: STAT, Start date: 05/30/13 21:27:00, Duration: 1 doses or times, Stop date: 05/30/13 22:26:00, Bolus DoseBolus Dose ondansetron No Artur 4 mg, M H 8-18 [place] Route: [place] 02:25: Ilochonwu IVP, Drug Med ical 00 form: INJ, Center ONCE, Dosing Weight 54.545, kg, Priority: STAT, Start date: 05/30/13 21:25:00, Stop date: 05/30/13 21:25:00 NS (Bolus) No Artur 1,000 mL, MH IV 1,000 mL 8-18 [place] Rate: [place] 01:43: Ilochonwu 1,000 Medical 00 ml/hr, Center Infuse over: 1 hr, Route: IV, Dosing Weight 54.545 kg, Total Volume: 1,000, Priority: STAT, Start date: 05/30/13 20:43:00, Duration: 1 doses or times, Stop date: 05/30/13 21:42:00, Bolus DoseBolus Dose ondansetron No Artur 4 mg, 2 MH 8-18 [place] mL, Route: Williama katelin 01:40: Ilochonwu IVP, Drug Med ical 00 form: INJ, Center ONCE, Dosing Weight 54.545, kg, Priority: STAT, Start date: 05/30/13 20:40:00, Stop date: 05/30/13 20:40:00 morphine 2012-0 No Artur 4 mg, 1 MH Sulfate 8-18 [place] mL, Route: [place] 01:40: Ilochonwu IVP, Drug Med ical 00 form: INJ, Center ONCE, Dosing Weight 54.545, kg, Priority: STAT, Start date: 05/30/13 20:40:00, Stop date: 05/30/13 20:40:00 NS (Bolus) No Rodrigo Axel 1,000 mL, MH IV 1,000 mL 8-18 Joseph Rate: [place] 01:22: 1,000 Medical 00 ml/hr, Center Infuse over: 1 hr, Route: IV, Dosing Weight 54.545 kg, Total Volume: 1,000, Priority: STAT, Start date: 05/30/13 20:22:00, Duration: 1 doses or times, Stop date: 05/30/13 21:21:00, Bolus DoseBolus Dose Valium No Moni 5 mg, MH 8-07 Stano Route: PO, [place] 21:19: ONCE, Medical 00 Dosing Center Weight 68.182, kg, Priority: NOW, Start date: 05/20/13 16:19:00, Stop date: 05/20/13 16:19:00 tramadol 50 Yes Moni 100 mg, 2 MH mg oral 8-07 Stano tab, PO, [place] tablet 20:26: Q6H, 30 Medical 25 tab, Center Substituti on Allowed, TAB sertraline Yes Moni 100 mg, 1 MH 100 mg oral 8-07 Stano tab, PO, William as tablet 20:26: Daily, 30 Medica l 23 tab, Center Substituti on Allowed, TAB pregabalin Yes Moni 150 mg, 2 MH 75 mg oral 8-07 [place] cap, [place], [place] capsule 20:26: Q8H, 30 Medical 19 cap, Center Substituti on Allowed, CAP enoxaparin Yes Moni 30 mg, 0.3 MH 30 mg/0.3 8-07 Stano mL, SUB-Q, William as mL 20:26: Q12H, 7 Medical subcutaneou 06 mL, Center s solution Substituti on Allowed, INJ docusate Yes Moni 100 mg, 1 MH sodium 100 8-07 [place] cap, PO, [place] mg oral 20:26: BID, 30 Medical capsule 04 cap, Center Substituti on Allowed, CAP diazepam 5 Yes Moni 5 mg, 1 MH mg oral 05-20 Stano tab, NG, [place] tablet 20:25: Q12H, PRN, Medic al 58 10 tab, as Center needed for anxiety, Substituti on Allowed, TAB celecoxib Yes Moni 200 mg, 2 M H 100 mg oral 05-20 Stano cap, NG, William as capsule 20:25: Q12H, 30 Medica l 55 cap, Center Substituti on Allowed, CAP acetaminoph Yes Moni 1-2 tab, MH en-hydrocod 05-20 Stano PO, Q4-6H, [place] one 325 20:25: PRN, 30 Medical mg-10 mg 42 tab, Pain, Cente r oral tablet Substituti on Allowed, Maintenanc e, TAB Zoloft No Moni 100 mg, 1 MH 8-06 Stano tab, [place] 14:00: Route: PO, Medical 00 Drug form: Center TAB, Daily, Dosing Weight 68.182, kg, Start date: 05/19/13 9:00:00, Duration: 30 day, Stop date: 06/17/13 9:00:00 [place] No Moni 1 tab, MH 10/325 oral - Stano Route: PO, [place] tablet 01:00: Drug Form: Medic al 00 TAB, Center Dosing Weight 68.182, kg, Q4H, Start date: 05/18/13 20:00:00, Duration: 30 day, Stop date: 06/17/13 16:00:00 acetaminoph No Moni 1 tab, MH en-hydrocod 05 Stano Route: PO, [place] one 325 21:52: Drug Form: Medi danny mg-10 mg 00 TAB, Center oral tablet Dosing Weight 68.182, kg, Q4H, PRN Pain, Start date: 05/18/13 16:52:00, Duration: 30 day, Stop date: 06/17/13 16:51:00 tramadol No Moni 100 mg, 2 MH 8-05 Stano tab, [place] 17:00: Route: PO, Medical 00 Drug form: Center TAB, Q6H, Dosing Weight 68.182, kg, Start date: 05/18/13 12:00:00, Duration: 30 day, Stop date: 06/17/13 6:00:00 bisacodyl 2012- No Moni 10 mg, 2 MH 8-05 Stano tab, [place] 15:37: Route: PO, Medical 00 Drug form: [place] ECTAB, Daily, Dosing Weight 68.182, kg, PRN Constipati on, Start date: 05/18/13 10:37:00, Duration: 30 day, Stop date: 06/17/13 10:36:00 sodium 2012-0 No Pepper 5 mL, MH chloride 05-13 Je Route: [place] 0.9% 21:03: Christiansen INJ, Medical Irrigation 00 Dosing Center Weight 68.182, kg, [id number], PRN Line Flush, Start date: 05/13/13 16:03:00, Duration: 30 day, Stop date: 06/12/13 16:02:00 molasses 2012- No Tuyet 240 mL, MH 05-12 Lara Route: MA, [place] 15:35: [place] Drug Form: Medical 00 [facility] SYR, [place] Dosing Weight 68.182, kg, ONCE, Milk of Molasses Enema, Start date: 05/12/13 10:35:00, Duration: 1 doses or times, Stop date: 05/12/13 10:35:00 metoprolol 2012- No Cortez 12.5 mg, 1 MH tartrate 05-12 Mckay gimenez, Route: [place] 02:[place]: [place] PO, Drug Medic al 00 form: [facility], [place] BID, Dosing Weight 68.182, kg, Start date: 05/11/13 21:00:00, Duration: 30 day, Stop date: 06/10/13 17:00:00 Omnipaque 2012-0 No Tuyet 78 mL, MH 350mg/ml 05-10 Lara Route: [place] 22:38: [place] IVP, Drug Medical 00 Marino Form: [place] SOLN, Dosing Weight 68.182, kg, ONCALL, STAT, Start date: 05/10/13 17:38:00, Duration: 1 doses or times, Weight = 60 - 74kg -- "To be infused by Radiology Staff ONLY"Weigh t = 60 - 74kg -- "To be infused by Radiology Staff ONLY" methadone No Cortez 2.5 mg, 05-10 Mckay 0.5 tab, [place] 21:00: [place] Route: PO, Med ical 00 Drug form: Center TAB, Q8H, Dosing Weight 68.182, kg, Start date: 05/10/13 16:00:00, Duration: 30 day, Stop date: 06/09/13 8:00:00 Zofran No Tuyet 4 mg, 2 05-10 Lara mL, Route: [place] 19:21: [place] IV, Drug Medical Marino form: INJ, Center ONCE, Dosing Weight 68.182, kg, Start date: 05/10/13 14:21:00, Stop date: 05/10/13 14:21:00 Kayexalate No Tuyet 15 gm, 60 05-10 Lara mL, Route: [place] 17:00: [place] PO, Drug Medical Marino form: Center SUSP, ONCE, Dosing Weight 68.182, kg, Start date: 05/10/13 12:00:00, Stop date: 05/10/13 12:00:00 [place] No Moni 2 tab, 10/325 oral 05-10 Stano Route: PO, [place] tablet 17:00: Drug Form: Medic al 00 TAB, Center Dosing Weight 68.182, kg, Q6H, Start date: 05/10/13 12:00:00, Duration: 30 day, Stop date: 06/09/13 6:00:00 Kayexalate No Tuyet 15 gm, 60 05-09 Lara mL, Route: [place] 22:00: [place] PO, Drug Medical Marino form: Center SUSP, Daily, Dosing Weight 68.182, kg, Start date: 05/09/13 17:00:00, Duration: 30 day, Stop date: 06/08/13 9:00:00 MiraLax No Mouayyad 17 gm, 1 05-08 Zaza pkt, [place] 14:00: Route: PO, Medical 00 Drug form: Center PWDR, Daily, Dosing Weight 68.182, kg, Start date: 05/08/13 9:00:00, Duration: 30 day, Stop date: 06/06/13 9:00:00 Diflucan 2012-0 No Moni 400 mg, 05-05 Stano 200 mL, [place] 16:00: Route: Medical 00 IVPB, Drug Center form: INJ, [id number], Dosing Weight 68.182, kg, Start date: 05/05/13 11:00:00, Duration: 30 day, Stop date: 06/03/13 11:00:00 magnesium 2012-0 No Moni 2 gm, 50 MH sulfate 05-05 Stano mL, Route: [place] 15:26: IVPB, Drug Medical 00 form: INJ, Center ONCE, Dosing Weight 68.182, kg, Start date: 05/05/13 10:26:00, Duration: 1 doses or times, Stop date: 05/05/13 10:26:00, For Mg = 1.8 - 2 mg/dLFor Mg = 1.8 - 2 mg/dL metoprolol 2012-0 No Tuyet 25 mg, 1 MH tartrate 05-05 Lara tab, [place] 02:00: [place] Route: PO, Medical 00 Marino Drug form: Center TAB, Q12H, Dosing Weight 68.182, kg, Start date: 05/04/13 21:00:00, Duration: 30 day, Stop date: 06/03/13 9:00:00 Zoloft 2012-0 No Meghann 50 mg, 05-04 Ermelinda Chamberlain Route: [place], William as 14:00: Daily, Medical 00 Dosing Center Weight 68.182, kg, Start date: 05/04/13 9:00:00, Duration: 30 day, Stop date: 06/02/13 9:00:00 Merrem 2012-0 No Krislynn 500 mg, 05-03 Valeria Route: [place] 18:08: Mueck IVPB, Drug Medica l 00 form: Center PDR/INJ, ABXQ6H, Dosing Weight 68.182, kg, CrCL > = 50ml/min, Extended infusion, infuse over 3 hours, Start date: 05/03/13 13:08:00, Duration: 30 day, Stop date: 06/02/13 9:00:00 meropenem 2012-0 No Tigre 500 mg, 7 Kailash Route: [place] 17:00: Collom IVPB, Drug Medic al 00 form: Center PDR/INJ, ABXQ6H, Dosing Weight 68.182, kg, CrCL > = 50ml/min, Extended infusion, infuse over 3 hours, Start date: 05/03/13 12:00:00, Duration: 30 day, Stop date: 06/02/13 6:00:00 methadone 2012-0 No Tuyet 5 mg, 1 MH 7-20 Lara tab, [place] 14:00: [place] Route: PO, Medical 00 Marino Drug form: [place] TAB, Q12H, Dosing Weight 68.182, kg, Start date: 05/02/13 9:00:00, Duration: 30 day, Stop date: 05/31/13 21:00:00 Dakins 2012-0 No Moni 1 appl, Quarter 7-20 Stano Route: [place] Strength 14:00: TOP, Drug Medi danny Solution 00 Form: [place] SOLN, Dosing Weight 68.182, kg, Daily, Start date: 05/02/13 9:00:00, Duration: 30 day, Stop date: 05/31/13 9:00:00 Ultram 50 2012-0 No Moni 50 mg, 1 MH mg oral -20 Stano tab, [place] tablet 13:40: Route: PO, Medic al 00 Drug form: [place] TAB, Q6H, Dosing Weight 68.182, kg, PRN Pain, Start date: 05/02/13 8:40:00, Duration: 30 day, Stop date: 06/01/13 8:39:00 micafungin 2012-0 No Moni 100 mg, 7-19 Stano Route: IV, [place] 22:00: Drug form: Medical 00 INJ, [place] [id number], Dosing Weight 68.182, kg, Start date: 05/01/13 17:00:00, Duration: 30 day, Stop date: 05/29/13 22:00:00 Insulin 2012-0 No Naveen 3 unit, regular 7-19 Bulmaro 0.03 mL, William as 20:06: Keon Route: Medical 00 SUB-Q, [place] Drug form: SOLN, TID-Before Meals, Dosing Weight 68.182, kg, PRN Blood Glucose Results, Start date: 05/01/13 15:06:00, Duration: 30 day, Stop date: 05/31/13 15:05:00 glucagon 2013-0 No Ted 1 mg, 05-01 Sara Route: [place], [place] 20:06: [place] Drug form: Me dical 00 PDR/INJ, Center PRN, Dosing Weight 68.182, kg, PRN Blood Glucose Results, Start date: 05/01/13 15:06:00, Duration: 30 day, Stop date: 05/31/13 15:05:00 Dextrose No Naveen 12.5 gm, 50% Syringe 05-01 Bulmaro 25 mL, [place] 20:06: [place] Route: Medical 00 IVP, Drug Center Form: INJ, Dosing Weight 68.182, kg, PRN, PRN Blood Glucose Results, Start date: 05/01/13 15:06:00, Duration: 30 day, Stop date: 05/31/13 15:05:00 LR IV 1,000 No Mouayyad 1,000 mL, mL 05-01 Zaza Rate: 30 [place] 15:50: ml/hr, Medical Infuse Center over: 33.3 hr, Route: IV, Dosing Weight 68.182 kg, Total Volume: 1,000, Start date: 05/01/13 10:50:00, Stop date: 05/31/13 10:49:00 Zoloft No Moni 50 mg, 1 05-01 Stano tab, [place] 14:00: Route: PO, Medical 00 Drug form: Center TAB, Daily, Dosing Weight 68.182, kg, Start date: 05/01/13 9:00:00, Duration: 30 day, Stop date: 05/30/13 9:00:00 Versed No [facility] 2 mg, 04-30 Red Route: [place] 21:45: [place] IVP, ONCE, Me dical 00 Dosing Center Weight 68.182, kg, Start date: 04/30/13 16:45:00, Stop date: 04/30/13 16:45:00 lidocaine-e No [facility] 30 mL, pi 04-30 Red Route: [place] 1%-[id number] 21:45: [place] SUB-Q, Medical 00 Dosing Center Weight 68.182, kg, ONCE, Start date: 04/30/13 16:45:00, Stop date: 04/30/13 16:45:00 fentanyl 2012- No [facility] 100 MH 04-30 Red microgram, [place] 21:45: [place] Route: IV, Me dical 00 ONCE, Center Dosing Weight 68.182, kg, Start date: 04/30/13 16:45:00, Stop date: 04/30/13 16:45:00 lidocaine-e No Ravi Route: M H pi 04-30 Bulmaro SUB-Q, [place] 1%-[id number] 21:22: [facility] Drug Form: Medical 00 SOLN, Center Dosing Weight 68.182, kg, ONCE, Start date: 04/30/13 16:22:00, Stop date: 04/30/13 16:22:00 METRONIDazo No Ted 500 mg, le 04-30 Sara 100 mL, [place] 18:00: [place] Route: Medica l 00 IVPB, Drug [place] form: INJ, [id number], Dosing Weight 68.182, kg, Start date: 04/30/13 13:00:00, Duration: 30 day, Stop date: 05/30/13 5:00:00 vancomycin No Ted 1 gm, 04-30 Sara Route: [place] 18:00: [place] IVPB, Drug Me dical 00 form: INJ, Center [id number], Dosing Weight 68.182, kg, Start date: 04/30/13 13:00:00, Duration: 30 day, Stop date: 05/30/13 5:00:00 Omnipaque No Meghann 90 mL, MH 350mg/ml 04-30 Ermelinda Chamberlain Route: William as 14:49: IVP, Drug Medical 00 Form: Center SOLN, Dosing Weight 68.182, kg, ONCALL, STAT, Start date: 04/30/13 9:49:00, Duration: 1 doses or times, Stop date: 05/01/13 0:00:00, Dose = 2.2ml/kg, Max dose = 100ml -- "To be infused by Radiology Staff ONLY"Dose = 2.2ml/kg, Max dose = 100ml -- "To be infused by Radiology Staff ONLY" cefepime No Tigre 1 gm, -18 Kailash Route: [place] 12:00: [place] IVPB, Drug Medic al 00 form: INJ, Center [id number], Dosing Weight 68.182, kg, (CrCl >/= 50 ml/min), Start date: 04/30/13 7:00:00, Duration: 30 day, Stop date: 05/30/13 1:00:00 vancomycin 2012-0 No Kayode 2 gm, 500 MH 7-18 Thomas mL, Route: [place] 11:17: Lidia IVPB, Drug Medi danny 00 form: [place] SOLN, ONCE, Dosing Weight 68.182, kg, Start date: 04/30/13 6:17:00, Stop date: 04/30/13 6:17:00 Valium 2012-0 No [place] 5 mg, 1 MH 7-17 Elian Caal tab, [place] 02:00: Route: NG, Medical 00 Drug form: [place] TAB, Q12H, Dosing Weight 68.182, kg, PRN as needed for anxiety, Start date: 04/28/13 21:00:00, Stop date: 05/28/13 9:00:00 Protonix 2012-0 No Ravi 40 mg, MH 7-16 Bulmaro Route: [place] 02:00: Joann IVP, Drug Medic al 00 form: INJ, Center Q12H, Dosing Weight 68.182, kg, Start date: 04/27/13 21:00:00, Duration: 30 day, Stop date: 05/27/13 9:00:00 acetaminoph 2012-0 No Jignesh 1,000 mg, MH en 7-15 Vipin Route: IV, [place] 17:00: Luke Q6H, Medical 00 Dosing Center Weight 68.182, kg, Start date: 04/27/13 12:00:00, Duration: 30 day, Stop date: 05/27/13 6:00:00 clonidine 2012-0 No Jignesh 0.2 mg, 1 MH 0.2 mg oral 7-15 Vipin tab, [place] tablet 17:00: Luke Route: NG, Ct dical 00 Drug form: Center TAB, Q4H, Dosing Weight 68.182, kg, Start date: 04/27/13 12:00:00, Duration: 30 day, Stop date: 05/27/13 8:00:00 acetaminoph 2012-0 No Mouayyad 1,000 mg, MH en 7-15 Zaza 2 tab, [place] 17:00: Route: NG, Medical 00 Drug form: [place] TAB, Q6H, Start date: 04/27/13 12:00:00, Duration: 30 day, Stop date: 05/27/13 6:00:00 Lyrica 2012-0 No Moni 150 mg, 2 MH -15 Stano cap, [place] 15:00: Route: NG, Medical 00 Drug form: [place] CAP, Q8H, Dosing Weight 68.182, kg, Start date: 04/27/13 10:00:00, Stop date: 05/27/13 8:00:00 Celebrex 2012-0 No Jignesh 200 mg, 2 M H -15 Peter cap, [place] 15:00: Bryant Route: NG, Medi danny 00 Drug form: [place] CAP, Q12H, Dosing Weight 68.182, kg, Start date: 04/27/13 10:00:00, Duration: 30 day, Stop date: 05/27/13 9:00:00 sterile 2012-0 No Moni 1.2 mL, MH water 04-26 Stano Route: IV, [place] 14:03: Drug Form: Medical 00 INJ, Q4H, [place] PRN Other -See Comment, Start date: 04/26/13 9:03:00, Duration: 30 day, Stop date: 05/26/13 9:02:00 Valium 2012-0 No Tigre 5 mg, 1 MH -14 Kailash tab, [place] 14:00: Collom Route: PO, Medic al 00 Drug form: [place] TAB, TID, Dosing Weight 68.182, kg, Start date: 04/26/13 9:00:00, Duration: 30 day, Stop date: 05/25/13 17:00:00 clonidine 2012-0 No Jignesh 0.2 mg, 1 MH 0.2 mg oral 04-26 Peter tab, [place] tablet 14:00: Luke Route: PO, Me dical 00 Drug form: [place] TAB, TID, Dosing Weight 68.182, kg, Start date: 04/26/13 9:00:00, Duration: 30 day, Stop date: 05/25/13 17:00:00 Valium 2012-0 No Moni 5 mg, 1 MH 7-14 Stano tab, [place] 13:49: Route: PO, Medical 00 Drug form: Center TAB, QID, Dosing Weight 68.182, kg, PRN as needed for anxiety, Start date: 04/26/13 8:49:00, Duration: 30 day, Stop date: 05/26/13 8:48:00 [place] 5/325 No Jignesh 1 tab, M H oral tablet 04-26 Vipin Route: PO, [place] 13:42: Luke Drug Form: Medi danny 00 TAB, Center Dosing Weight 68.182, kg, Q6H, PRN as needed for pain, Start date: 04/26/13 8:42:00, Duration: 30 day, Stop date: 05/26/13 8:41:00 Geodon No Moni 10 mg, 04-26 Stano Route: IM, [place] 13:41: Drug form: Medical 00 PDR/INJ, Center Q4H, Dosing Weight 68.182, kg, PRN Other -See Comment, Start date: 04/26/13 8:41:00, Duration: 30 day, Stop date: 05/26/13 8:40:00, anxiety and agitation pantoprazol No Ted 100 mL, e 80 mg + 04-25 Sara Rate: 10 [place] Sodium 15:27: [place] ml/hr, [facility] danny Chloride 00 Infuse Center 0.9% IV 100 over: 10 mL hr, Route: IVPB, Dosing Weight 68.182 kg, Total Volume: 100, Infuse at 8 mg / hr for 72 hours for GI bleeding, Start date: 04/25/13 10:27:00, Duration: 72 hr, Stop date: 04/28/13 10:26:00 tetanus/dip No Bobo 0.5 ml, htheria/per 04-24 Gage Route: IM, [place] tussis, 18:39: Anny Drug Form: Medical acel (Tdap) 00 INJ, kg, Cent er 5 units-2.5 ONCE, units-18.5 Start mcg/0.5 mL date: intramuscul 04/24/13 ar 13:39:00, suspensio Stop date: 04/24/13 13:39:00(T dap ) For Adolecent and Adult use For IM Use. Same as: Adacel (Tdap) LR IV 1,000 No Ted 1,000 mL, MH mL 04-24 Sara Rate: [place] 14:43: [place] 1,000 Medical 00 ml/hr, Center Infuse over: 1 hr, Route: IV, Dosing Weight 68.182 kg, Total Volume: 1,000, Start date: 04/24/13 9:43:00, Duration: 30 day, Stop date: 05/24/13 9:42:00 Lactated 2012- No Tigre 500 mL, MH Ringers 7-12 Kailash Rate: 999 [place] (Bolus) IV 05:54: Collom ml/hr, Med ical 500 mL 00 Infuse Center over: 0.5 hr, Route: IV, Dosing Weight 68.182 kg, Total Volume: 500, Priority: NOW, Start date: 04/24/13 0:54:00, Stop date: 05/24/13 0:53:00 Protonix No Ted 40 mg, MH 04-24 Sara Route: [place] 02:00: [place] IVP, Drug Med ical 00 form: INJ, Center Q12H, Dosing Weight 68.182, kg, Start date: 04/23/13 21:00:00, Duration: 30 day, Stop date: 05/23/13 9:00:00 acetaminoph No Tigre 1,000 mg, MH en 10 mg/mL 04-24 Kailash 100 mL, [place] intravenous 01:33: Collom Route: IV, Medical solution 00 Drug form: Cente r INJ, ONCE, Dosing Weight 68.182, kg, Priority: NOW, Start date: 04/23/13 20:33:00, Stop date: 04/23/13 20:33:00 Lactated 2012- No Tigre 1,000 mL, MH Ringers IV 712 Kailash Rate: 100 [place] 1,000 mL 01:31: Collom ml/hr, Medic al 00 Infuse Center over: 10 hr, Route: IV, Dosing Weight 68.182 kg, Total Volume: 1,000, Start date: 04/23/13 20:31:00, Duration: 30 day, Stop date: 05/23/13 20:30:00 FENTanyl No Jignesh 1,000 MH 1000 mcg in 04-24 Peter microgram, [place] 20 mL 00:11: Luke 20 mL, Medical (titrate) 00 Rate: [place] IV 1,000 Titrate as microgram directed, Dosing Weight 68.182, kg, Route: IV, Total Volume: 20 ml, Duration: 30 day, Stop date: 05/23/13 19:10:00, Replace Every: 24 hr fentanyl No Ted 50 MH 04-23 Sara microgram, [place] 22:00: [place] 1 mL, Medical 00 Route: IV, Center Drug form: INJ, ONCALL, Dosing Weight 68.182, kg, Start date: 04/23/13 17:00:00 LR IV 1,000 No Ted 1,000 mL, MH mL 04-23 Sara Rate: [place] 21:34: [place] 1,000 Medical 00 ml/hr, Center Infuse over: 1 hr, Route: IV, Dosing Weight 68.182 kg, Total Volume: 1,000, Start date: 04/23/13 16:34:00, Duration: 1 doses or times, Stop date: 04/23/13 17:33:00 vancomycin No Ravi 1 gm, MH 04-23 Bulmaro Route: [place] 21:00: Joann IVPB, Drug Medi danny 00 form: INJ, [place] ABXQ8H, Dosing Weight 68.182, kg, Start date: 04/23/13 16:00:00, Stop date: 04/29/13 23:00:00 LR IV 1,000 No [facility] 1,000 mL, M H mL 04-23 Red Rate: [place] 17:40: [place] 1,000 Medical 00 ml/hr, Center Infuse over: 1 hr, Route: IV, Dosing Weight 68.182 kg, Total Volume: 1,000, Start date: 04/23/13 12:40:00, Duration: 1 doses or times, Stop date: 04/23/13 13:39:00 Omnipaque No [facility] 100 mL, MH 350mg/ml 04-23 Red Route: [place] 17:33: [place] IVP, Drug Med ical 00 Form: Center SOLN, Dosing Weight 68.182, kg, ONCALL, STAT, Start date: 04/23/13 12:33:00, Duration: 1 doses or times, Stop date: 04/24/13 0:00:00, Dose = 2.2ml/kg, Max dose = 100ml -- "To be infused by Radiology Staff ONLY"Dose = 2.2ml/kg, Max dose = 100ml -- "To be infused by Radiology Staff ONLY" vancomycin No Meghann 2 gm, MH + Sodium 04-23 Ermelinda Spauldingson Route: William as Chloride 12:17: IVPB, Medical 0.9% IV 500 00 ONCE, Center mL Start date: 04/23/13 7:17:00, Stop date: 04/23/13 7:17:00 Flagyl No Ravi 500 mg, 04-23 Bulmaro 100 mL, [place] 12:00: [facility] Route: Medical 00 IVPB, Drug [place] form: INJ, ABXQ8H, Dosing Weight 68.182, kg, Start date: 04/23/13 7:00:00, Stop date: 04/29/13 23:00:00 cefepime No Ravi 1 gm, 04-23 Bulmaro Route: [place] [facility] form: INJ, Center ABXQ6H, Dosing Weight 68.182, kg, (CrCl >/= 50 ml/min), Start date: 04/23/13 7:00:00, Stop date: 04/29/13 23:00:00 Motrin No [place] 400 mg, 20 04-23 Elian Caal mL, Route: William as 00:54: NG, Drug Medical 00 form: Center SUSP, ONCE, Dosing Weight 68.182, kg, Start date: 04/22/13 19:54:00, Stop date: 04/22/13 19:54:00 hydrochloro No Ted 1 tab, M H thiazide-lo 04-22 Sara Route: PO, [place] [facility] 25 18:49: Basiakerkym Drug Form: Medical mg-100 mg 00 TAB, Center oral tablet Dosing Weight 68.182, kg, Daily, Start date: 04/22/13 13:49:00, Duration: 30 day, Stop date: 05/22/13 9:00:00 potassium No Vira 2 pkt, MH phosphate-s 7-10 Ramírez Route: NG, [place] odium 17:00: Drug Form: Medica l phosphate 00 PDR/REC, Center 250 mg-278 Q6H, Start mg-164 mg date: oral powder 04/22/13 12:00:00, Duration: 30 day, Stop date: 05/22/13 6:00:00 Dulcolax 2012- No Moni 10 mg, 1 MH Laxative 7-10 Stano supp, [place] 16:00: Route: MA, Medical 00 Drug form: [place] SUPP, Daily, Start date: 04/22/13 11:00:00, Duration: 30 day, Stop date: 06/21/13 9:00:00 methadone 2012- No Jignesh 5 mg, 1 MH 7-10 Peter tab, [place] 15:30: Luke Route: NG, Medi danny 00 Drug form: [place] TAB, Q8H, Dosing Weight 68.182, kg, Start date: 04/22/13 10:30:00, Stop date: 05/22/13 8:00:00 clonidine 2012- No Ted 0.1 mg, 1 MH 7-10 Sara tab, [place] 15:30: [place] Route: NG, Ct dical 00 Drug form: [place] TAB, Q4H, Dosing Weight 68.182, kg, Start date: 04/22/13 10:30:00, Duration: 30 day, Stop date: 05/22/13 8:00:00 propofol 10 2012- No Jignesh 1,000 mg, MH mg/ml 7-10 Vipin 100 mL, [place] (titrate) 15:21: Bryant Rate: Medi danny 1,000 mg 00 Titrate as Cente r directed, Dosing Weight 68.182, kg, Route: IV, Total Volume: 100 ml, Start date: 04/22/13 10:21:00, Duration: 30 day, Stop date: 05/22/13 10:20:00, Replace Every: 24 hr Lovenox 2012- No Ted 30 mg, 0.3 M H 7-10 Sara mL, Route: [place] 14:[place]: [place] SUB-Q, Medica l 00 Drug form: [place] INJ, Q12H, Dosing Weight 68.182, kg, Start date: 04/22/13 9:00:00, Duration: 30 day, Stop date: 06/21/13 4:00:00 propofol 10 2012- No Tigre 1,000 mg, MH mg/ml 7-10 Kailash 100 mL, [place] (titrate) 04:27: Collom Rate: Medic al 1,000 mg 00 titrate to Cente r sedation, Dosing Weight 68.182, kg, Route: IV, Total Volume: 100 ml, Start date: 04/21/13 23:27:00, Duration: 30 day, Stop date: 05/21/13 23:26:00, Replace Every: 12 hr ibuprofen 2012- No Gil 400 mg, 20 M H 100 mg/5 mL 7-10 Romeo mL, Route: [place] oral 04:03: Ghamarian [place], Drug Medi danny suspension 00 form: Center SUSP, ONCE, Dosing Weight 68.182, kg, Start date: 04/21/13 23:03:00, Stop date: 04/21/13 23:03:00 Lactated No Gil 1,000 mL, MH Ringers 7-10 Romeo Rate: [place] (Bolus) IV 04:02: Ghamarian 1,000 M edical 1,000 mL 00 ml/hr, Center Infuse over: 1 hr, Route: IV, Dosing Weight 68.182 kg, Total Volume: 1,000, Start date: 04/21/13 23:02:00, Duration: 30 day, Stop date: 05/21/13 23:01:00 morphine 2012- No Gil 4 mg, 1 MH Sulfate 7-10 Romeo mL, [facility] [place] 01:[facility]: Ghamarian IVP, Drug Med ical 00 form: INJ, Center ONCE, Dosing Weight 68.182, kg, Start date: 04/21/13 20:32:00, Stop date: 04/21/13 20:32:00 LR IV 1,000 2012- No [facility] 1,000 mL, M H mL 7-09 Red Rate: [place] 05:37: [place] 1,000 Medical 00 ml/hr, Center Infuse over: 1 hr, Route: IV, Dosing Weight 68.182 kg, Total Volume: 1,000, Start date: 04/21/13 0:37:00, Duration: 1 doses or times, Stop date: 04/21/13 1:36:00 Ancef 2012-0 No Valeria 2 gm, 50 MH 04-20 Marcie mL, Route: [place] 21:00: Tariq IVPB, Drug Medic al 00 form: INJ, Center ONCE, Dosing Weight 68.182, kg, Start date: 04/20/13 16:00:00, Duration: 1 doses or times, Stop date: 04/20/13 16:00:00 bisacodyl 2012-0 No Jignesh 10 mg, 2 M H 7 Peter tab, [place] 14:00: Bryant Route: MA, Medi danny 00 Drug form: [place] ECTAB, Daily, Dosing Weight 68.182, kg, Start date: 04/20/13 9:00:00, Duration: 30 day, Stop date: 05/19/13 9:00:00 potassium 2012-0 No [facility] 30 mmol, MH phosphate + 04-20 Red 10 mL, [place] Sodium 11:15: Bellister Route: Medi danny Chloride 00 IVPB, [place] 0.9% IV 250 ONCE, mL Dosing Weight 68.182, kg, Start date: 04/20/13 6:15:00, Stop date: 04/20/13 6:15:00 Lovenox 2012-0 No Meghann 30 mg, 0.3 M H 04-20 Ermelinda Chamberlain mL, Route: William as 02:00: SUB-Q, Medical 00 Drug form: [place] INJ, Q12H, Dosing Weight 68.182, kg, Start date: 04/19/13 21:00:00, Duration: 30 day, Stop date: 05/19/13 9:00:00 docusate 2012-0 No Jignesh 100 mg, 1 M H 04-19 Vipin cap, [place] 22:00: Luke Route: PO, Medi danny 00 Drug form: [place] CAP, BID, Dosing Weight 68.182, kg, Start date: 04/19/13 17:00:00, Duration: 30 day, Stop date: 06/18/13 9:00:00 Neutra-Phos 2012-0 No [facility] 2 pkt, MH 04-19 Red Route: PO, [place] 21:30: Bell[place] Drug Form: Me dical 00 PDR/REC, Center Dosing Weight 68.182, kg, TID-Before Meals, Start date: 04/19/13 16:30:00, Duration: 30 day, Stop date: 05/19/13 11:30:00 heparin 2013-0 No Meghann 5,000 MH 7-07 Ermelinda Spauldingson unit, 1 [place] 21:00: mL, Route: Medical 00 [facility] Drug form: INJ, Q8H, Dosing Weight 68.182, kg, Start date: 04/19/13 16:00:00, Duration: 30 day, Stop date: 05/19/13 8:00:00 Roxicodone 2012-0 No Tigre 10 mg, 10 MH 7-07 Kailash mL, Route: [place] 19:45: Belkys [place], Drug Medical 00 form: LIQ, [place] Q4H, Start date: 04/19/13 14:45:00, Duration: 30 day, Stop date: 05/19/13 12:00:00 Tylenol 2012-0 No Ted 975 mg, 7-07 Sara 30.45 mL, [place] 19:30: [facility] Route: JULIENNE, Ct dical 00 Drug form: Center LIQ, Q6H, Start date: 04/19/13 14:30:00, Duration: 30 day, Stop date: 05/19/13 12:00:00 Roxicodone 2012-0 No Rober 5 mg, 5 MH 7-07 Audi Peacockson mL, Route: [place] as 19:30: [place], Drug Medical 00 form: LIQ, [place] Q4H, Start date: 04/19/13 14:30:00, Duration: 30 day, Stop date: 05/19/13 12:00:00 Tylenol 2012-0 No Meghann 975 mg, 7-07 Ermelinda Chamberlain 30.45 mL, [place] 17:[place]: Route: [place], Medical 00 Drug form: Center LIQ, Q6H, Dosing Weight 68.182, kg, Start date: 04/19/13 12:00:00, Duration: 30 day, Stop date: 05/19/13 6:00:00 OXYcodone 5 2012-0 No Meghann 10 mg, 10 MH mg 7-07 Ermelinda Chamberlain mL, Route: William as immediate 17:00: [place], Drug Medi danny release 00 form: LIQ, Center Q4H, Dosing Weight 68.182, kg, Start date: 04/19/13 12:00:00, Duration: 30 day, Stop date: 05/19/13 8:00:00 magnesium 2012-0 No [facility] 2 gm, 50 MH sulfate 7-07 Red mL, Route: [facility] [place] 17:00: [place] IVPB, Drug Me dical 00 form: INJ, Center Q2H, Dosing Weight 68.182, kg, Total dose = 4 gm, Start date: 04/19/13 12:00:00, Duration: 2 doses or times, Stop date: 04/19/13 14:00:00 hydrocortis 2012- No Jignesh 100 mg, 2 MH one 7- Vipin mL, Route: [place] 05:00: Luke IV, Drug Medica l 00 form: Center PDR/INJ, Q8H, Dosing Weight 68.182, kg, Start date: 04/19/13 0:00:00, Duration: 30 day, Stop date: 05/18/13 16:00:00 METRONIDazo 2012-0 No Jignesh 500 mg, MH le 7- Peter 100 mL, [place] 02:00: Luke Route: Medical 00 IVPB, Drug [place] form: INJ, ABXQ8H, Dosing Weight 68.182, kg, Start date: 04/18/13 21:00:00, Duration: 30 day, Stop date: 05/18/13 13:00:00 cefepime 2012-0 No Jignesh 1 gm, 7-07 Vipin Route: [place] 02:00: Luke IVPB, Drug Medi danny 00 form: INJ, Center [id number], Dosing Weight 68.182, kg, (CrCl 30 - 49 ml/min), Start date: 04/18/13 21:00:00, Duration: 30 day, Stop date: 05/18/13 9:00:00 norepinephr 2012- No Meghann 234 mL, ine 16 mg + 7-07 Ermelinda Chamberlain Rate: Use [place] Sodium 01:25: as Medical Chloride 00 directed, [place] 0.9% Dosing (titrate) Weight 234 mL 68.182, kg, Route: IV, Total Volume: 250 mL, Stop date: 05/18/13 20:24:00, Replace Every: 24 hr calcium 2012-0 No Meghann 3,000 mg, gluconate + 04-19 Ermelinda Chamberlain 30 mL, [place] Sodium 01:12: Route: Medical Chloride 00 IVPB, [place] 0.9% IV 100 ONCE, mL Dosing Weight 68.182, kg, Start date: 04/18/13 20:12:00, Stop date: 04/18/13 20:12:00 Lactated No [facility] 500 mL, Ringers 04-19 Red Rate: 500 [place] (Bolus) IV 00:37: [place] ml/hr, Medical 500 mL 00 Infuse Center over: 1 hr, Route: IV, Dosing Weight 68.182 kg, Total Volume: 500, Start date: 04/18/13 19:37:00, Duration: 30 day, Stop date: 05/18/13 19:36:00 Ancef No Elise Issa 1 gm, 04-18 Danny Route: [place] 22:05: IVPB, Medical 00 ONCE, [place] Dosing Weight 68.182, kg, Start date: 04/18/13 17:05:00, Duration: 1 doses or times, Stop date: 04/18/13 17:05:00 methadone No Meghann 10 mg, 1 M H 04-18 Ermelinda Chamberlain tab, [place] 21:00: Route: PO, Medical 00 Drug form: [place] TAB, Q8H, Dosing Weight 68.182, kg, Start date: 04/18/13 16:00:00, Duration: 30 day, Stop date: 05/18/13 8:00:00 Tylenol No Meghann 975 mg, 3 04-18 Ermelinda Chamberlain tab, [place] 17:00: Route: PO, Medical 00 Drug form: [place] TAB, Q6H, Dosing Weight 68.182, kg, Start date: 04/18/13 12:00:00, Duration: 30 day, Stop date: 05/18/13 6:00:00 Xanax 2012- No Substituti 04-18 on Allowed [place] 14:25: Medical 56 [place] Lexapro No Substituti 04-18 on Allowed [place] 14:25: Medical 10 [place] Pepcid 20 No Ted 20 mg, 1 M H mg oral 04-18 Sara tabCordova, [place] tablet 14:00: [place] Route: PO, Medical 00 Drug form: Center TAB, Q12H, Dosing Weight 68.182, kg, Start date: 04/18/13 9:00:00, Duration: 30 day, Stop date: 05/17/13 21:00:00 Insulin No Ted 4 unit, regular 04-18 Sara 0.04 mL, William as 13:31: [place] Route: Medica l 00 SUB-Q, [place] Drug form: SOLN, PRN, Dosing Weight 68.182, kg, PRN Abnormal Lab Result, Start date: 04/18/13 8:31:00, Duration: 30 day, Stop date: 05/18/13 8:30:00, For FSBG 126mg/dL - 140mg/dLFo r FSBG 126mg/dL - 140mg/dL Dextrose No Ted 12.5 gm, 50% Syringe 04-18 Sara 25 mL, [place] 13:31: [place] Route: Medica l 00 IVP, Drug Center Form: INJ, Dosing Weight 68.182, kg, PRN, PRN Abnormal Lab Result, Start date: 04/18/13 8:31:00, Duration: 30 day, Stop date: 05/18/13 8:30:00, For FSBG 40mg/dL - 60mg/dLFor FSBG 40mg/dL - 60mg/dL Tylenol No Tigre 1,000 mg, 04-18 Kailash 100 mL, [place] 10:28: Collom Route: PO, Medic al 00 Drug form: [place] INJ, Q6H, Dosing Weight 68.182, kg, PRN as needed for fever, Start date: 04/18/13 5:28:00, Duration: 30 day, Stop date: 05/18/13 5:27:00 Haldol No Ted 5 mg, 1 04-18 Sara mL, Route: [place] 08:25: [place] IM, Drug Medi danny 00 form: INJ, Center Q4H, Dosing Weight 68.182, kg, PRN Anxiety, Start date: 04/18/13 3:25:00, Duration: 30 day, Stop date: 05/18/13 3:24:00 FENTanyl - No Jignesh 100 MH one time 04-18 Peter microgram, [place] bol[place] 07:36: Luke 2 mL, Medi danny dose 00 Route: Center IVP, Drug form: INJ, ONCE, Dosing Weight 68.182, kg, Start date: 04/18/13 2:36:00, Stop date: 04/18/13 2:36:00 ketamine 2012- No Jignesh 100 mg, MH 100mg/NS 04-18 Vipin 100 mL, [place] 100ml 06:57: Luke Rate: See Medi danny (1mg/ml) 00 Order Center 100 mg Comments, Dosing Weight 68.182, kg, Route: IV, Total Volume: 100 mL, Duration: 30 day, Stop date: 05/18/13 1:56:00, Replace Every: 24 hr Sodium No Ted 500 mL, MH Chloride 3% 04-18 Saar Rate: 30 [place] IV 500 mL 02:56: [place] ml/hr, edical 00 Infuse Center over: 16.7 hr, Route: IV, Dosing Weight 68.182 kg, Total Volume: 500, Start date: 04/17/13 21:56:00, Duration: 30 day, Stop date: 05/17/13 21:55:00 Sodium 2012- No Rasheed 500 mL, MH Chloride 5% 04-18 Ye Rate: 30 [place] IV 500 mL 02:51: Bogert ml/hr, Medi danny 00 Infuse Center over: 16.7 hr, Route: IV, Dosing Weight 68.182 kg, Total Volume: 500, Start date: 04/17/13 21:51:00, Duration: 30 day, Stop date: 05/17/13 21:50:00 sodium 2012-0 No Rasheed 1,000 mL, MH chloride 04-18 Ye Rate: [place] 23.4% INJ 02:35: Bogert Infuse as M edical 256 mEq + 00 Doreen wayne sodium Dosing acetate 2 Weight mEq/mL 68.182, intravenous kg, Route: solution IV, Total 182 mEq + Volume: sterile 1,000 mL, Duration: 30 day, Stop date: 05/17/13 21:35:00, Replace Every: 24 hr LR IV 1,000 2012- No Rasheed 1,000 mL, MH mL 04-18 Ye Rate: 100 [place] 01:39: Bogert ml/hr, Medical 00 Infuse Center over: 10 hr, Route: IV, Dosing Weight 68.182 kg, Total Volume: 1,000, Start date: 04/17/13 20:39:00, Duration: 30 day, Stop date: 05/17/13 20:38:00 Versed 50 No Jignesh 50 mg, 50 MH mg in NS 50 04-18 Peter mL, Rate: [place] ml 01:18: Bryant Titrate as Medi danny (titrate) 00 directed, Cente r IV 50 mg Dosing Weight 68.182, kg, Route: IV, Total Volume: 50 ml, Duration: 30 day, Stop date: 05/17/13 20:17:00, Replace Every: 24 hr FENTanyl No Jignesh 1,000 MH 1000 mcg in 04-18 Peter microgram, [place] 20 mL 01:18: Luke 20 mL, Medical (titrate) 00 Rate: Center IV 1,000 Titrate as microgram directed, Dosing Weight 68.182, kg, Route: IV, Total Volume: 20 ml, Duration: 30 day, Stop date: 05/17/13 20:17:00, Replace Every: 24 hr FENTanyl - No Jignesh 100 MH one time 04-18 Peter microgram, [place] 01:16: Luke 2 mL, Medi danny dose 00 Route: [place] IVP, Drug form: INJ, ONCE, Dosing Weight 68.182, kg, Start date: 04/17/13 20:16:00, Stop date: 04/17/13 20:16:00 Ancef No Brian Ortiz 1 gm, 04-17 Saqib Route: [place] 22:49: IVPB, Medical 00 ONCE, Center Dosing Weight 68.182, kg, Priority: STAT, Start date: 04/17/13 17:49:00, Stop date: 04/17/13 17:49:00 tetanus/dip Yes Bobo 0.5 ml, htheria/per 04-17 Gage Route: IM, [place] tussis, 22:05: Anny Drug Form: Medical acel (Tdap) 00 INJ, kg, Cent er 5 units-2.5 ONCE, units-18.5 Start mcg/0.5 mL date: intramuscul 04/17/13 ar 17:05:00, suspensio Stop date: 04/17/13 17:05:00 ketamine No Bobo 50 mg, 0.5 MH 7-05 Gage mL, Route: [place] 22:03: Anny IV, Drug Medic al 00 form: INJ, Center ONCE, kg, Start date: 04/17/13 17:03:00, Stop date: 04/17/13 17:03:00 fentanyl No Bobo 50 MH 7-05 Gage microgram, [place] 22:02: Anny 1 mL, Medical 00 Route: [place] IVP, Drug form: INJ, ONCE, kg, Priority: STAT, Start date: 04/17/13 17:02:00, Stop date: 04/17/13 17:02:00 Saline No Brian N 5 ml, MH Flush 0.9% 05 Saqib Route: [facility] 21:39: IVP, Drug Medical 00 Form: INJ, Center kg, PRN, PRN Line Flush, Administer at least once every 12 hours, Start date: 04/17/13 16:39:00, Stop date: 06/16/13 16:38:00 Vital Signs Vital Name Observation Time Observation Value Comments Source Heart Rate 2020-01-24 02:54:00 [facility] Respitory Rate 2020-01-24 02:54:[address] [facility] ealth Systolic (mm Hg) 2020-01-24 02:30:00 [facility] Diastolic (mm Hg) 2020-01-24 02:30:00 [facility] Temperature Oral (F) 2020-01-24 01:36:00 36.06 [place] [facility] Height 2020-01-24 01:36:[address] [facility] Hea lt Weight 2020-01-24 01:36:[address] [facility] Hea lth Systolic (mm Hg) 2019-12-20 16:20:00 [facility] Diastolic (mm Hg) 2019-12-20 16:20:00 [facility] Heart Rate 2019-12-20 16:20:[address] [facility] Hea lt Temperature Oral (F) 2019-12-20 16:20:[address] [facility] Health Respitory Rate 2019-12-20 16:20:00 [facility] Height 2019-12-19 06:45:[address] [facility] Weight 2019-12-19 06:45:[address] [facility] Systolic (mm Hg) 2019-12-02 15:26:00 [facility] Diastolic (mm Hg) 2019-12-02 15:26:00 [facility] Heart Rate 2019-12-02 15:26:00 [facility] 2019-08-04 23:29:00 [facility] Diastolic (mm Hg) 2019-08-04 23:29:00 [facility] Systolic (mm Hg) 2019-08-04 23:23:00 [facility] Diastolic (mm Hg) 2019-08-04 23:23:00 [facility] Heart Rate 2019-08-04 23:23:00 [facility] Respitory Rate 2019-08-04 23:23:00 [place] [facility] Temperature Oral (F) 2019-08-04 23:23:00 97.5 F [facility] Height 2019-08-04 23:23:00 170.18 cm [facility] BMI Calculated 2019-08-04 23:23:00 [facility] Weight 2019-08-04 23:23:00 [facility] Systolic (mm Hg) 2019-07-01 17:16:[facility] Di[facility] 2019-07-01 17:16:[facility] 2019-07[facility]01 [facility]16[facility] 2019-03-17 04:22:00 [facility] [place] [facility] Rate 2019-03-17 04:22:00 [facility] [place] [facility] Temperature Oral (F) 2019-03-17 04:22:[address] [facility] Respitory Rate 2019-03-17 02:02:00 [facility] [place] Temperature Oral (F) 2019-03-17 02:02:[address] [facility] Weight 2019-03-17 02:02:00 [facility] [place] [facility] Systolic (mm Hg) 2019-03-17 02:02:00 [facility] [place] Diastolic (mm Hg) 2019-03-17 02:02:00 [facility] [place] [facility] Rate 2019-03-17 02:02:00 [facility] [place] [facility] Diastolic (mm Hg) 2014-08-31 14:34:00 [facility] Systolic (mm Hg) 2014-08-31 14:34:00 [facility] Respitory Rate 2014-08-31 14:34:00 [facility] Heart Rate 2014-08-31 14:34:00 [facility] Temperature Oral (F) 2014-08-31 14:34:00 97.3 F [facility] Diastolic (mm Hg) 2014-08-31 11:02:00 [facility] Respitory Rate 2014-08-31 11:02:00 [facility] Systolic (mm Hg) 2014-08-31 11:02:00 [facility] Heart Rate 2014-08-31 11:02:00 [facility] Respitory Rate 2014-08-31 09:11:00 [place] [facility] Heart Rate 2014-08-31 09:11:00 [facility] Diastolic (mm Hg) 2014-08-31 09:11:00 [facility] Systolic (mm Hg) 2014-08-31 09:11:00 [facility] Temperature Oral (F) 2014-08-31 07:40:00 97.7 F [facility] Temperature Oral (F) 2014-08-31 04:45:00 97.6 F [facility] Weight 2014-08-30 21:23:00 [facility] Height 2014-08-30 21:23:00 177.8 cm [facility] BMI Calculated 2014-08-30 21:23:00 [facility] Heart Rate 2014-06-04 16:41:00 [facility] Temperature Oral (F) 2014-06-04 16:41:00 98.5 F [facility] Respitory Rate 2014-06-04 16:41:00 [facility] Diastolic (mm Hg) 2014-06-04 16:41:00 [facility] Systolic (mm Hg) 2014-06-04 16:41:00 [facility] Respitory Rate 2014-06-04 12:24:00 [facility] Systolic (mm Hg) 2014-06-04 12:24:00 [facility] Diastolic (mm Hg) 2014-06-04 12:24:00 [facility] Temperature Oral (F) 2014-06-04 12:24:00 98.5 F [facility] Heart Rate 2014-06-04 12:24:00 [facility] Respitory Rate 2014-06-04 09:37:00 [facility] Diastolic (mm Hg) 2014-06-04 09:37:00 [facility] Systolic (mm Hg) 2014-06-04 09:37:00 [facility] Heart Rate 2014-06-04 09:37:00 [facility] Temperature Oral (F) 2014-06-04 09:37:00 98.5 F [facility] Weight 2014-06-01 19:48:00 [facility] BMI Calculated 2014-06-01 19:48:00 [facility] Height 2014-06-01 19:48:00 172.72 cm [facility] BMI Calculated 2014-06-01 11:50:00 [facility] Height 2014-06-01 11:50:00 177.8 cm [facility] Weight 2014-06-01 11:50:00 [facility] Weight 2014-05-28 17:08:00 [facility] BMI Calculated 2014-05-28 17:08:00 [facility] Height 2014-05-28 17:08:00 175.26 cm [facility] Systolic (mm Hg) 2014-05-13 16:25:00 [facility] Diastolic (mm Hg) 2014-05-13 16:25:00 [facility] Respitory Rate 2014-05-13 16:25:00 [facility] Temperature Oral (F) 2014-05-13 16:25:00 98.4 F [facility] Systolic (mm Hg) 2014-05-13 15:01:00 [facility] Diastolic (mm Hg) 2014-05-13 15:01:00 [facility] Respitory Rate 2014-05-13 15:01:00 [facility] Diastolic (mm Hg) 2014-05-13 12:54:00 [facility] Respitory Rate 2014-05-13 12:54:00 [facility] Systolic (mm Hg) 2014-05-13 12:54:00 [facility] Temperature Oral (F) 2014-05-13 07:24:00 98.2 F [facility] Weight 2014-05-13 07:24:00 [facility] Height 2014-05-13 07:24:00 175.26 cm [facility] BMI Calculated 2014-05-13 07:24:00 [facility] Heart Rate 2014-05-13 07:24:00 [facility] Heart Rate 2014-05-06 16:13:00 [facility] Temperature Oral (F) 2014-05-06 16:13:00 97.3 [facility] Diastolic (mm Hg) 2014-05-06 16:13:00 [facility] Systolic (mm Hg) 2014-05-06 16:13:00 [facility] Heart Rate 2014-05-06 12:14:00 [facility] Temperature Oral (F) 2014-05-06 12:14:00 97.7 F [facility] Diastolic (mm Hg) 2014-05-06 12:14:00 [facility] Systolic (mm Hg) 2014-05-06 12:14:00 [facility] Temperature Oral (F) 2014-05-06 09:23:00 96.4 F [facility] Heart Rate 2014-05-06 09:23:00 [facility] Respitory Rate 2014-05-06 09:23:00 [facility] Systolic (mm Hg) 2014-05-06 09:23:00 [facility] Diastolic (mm Hg) 2014-05-06 09:23:00 [facility] Respitory Rate 2014-05-06 05:30:00 [facility] BMI Calculated 2014-05-06 00:27:00 [facility] Weight 2014-05-06 00:27:00 [facility] Height 2014-05-06 00:27:00 175.26 cm [facility] BMI Calculated 2014-05-05 23:40:00 [facility] Height 2014-05-05 23:40:00 175.26 cm [facility] Weight 2014-05-05 23:40:00 [facility] Respitory Rate 2014-05-05 23:39:00 [facility] Weight 2014-05-05 06:51:00 [facility] BMI Calculated 2014-05-05 06:51:00 [facility] Height 2014-05-05 06:51:00 175.26 cm [facility] Systolic (mm Hg) 2014-04-21 15:20:00 [facility] Diastolic (mm Hg) 2014-04-21 15:20:00 [facility] Respitory Rate 2014-04-21 15:20:00 [facility] Systolic (mm Hg) 2014-04-21 15:00:00 [facility] Diastolic (mm Hg) 2014-04-21 15:00:00 [facility] Respitory Rate 2014-04-21 15:00:00 [facility] Diastolic (mm Hg) 2014-04-21 14:15:00 [facility] Systolic (mm Hg) 2014-04-21 14:15:00 [facility] Respitory Rate 2014-04-21 14:15:00 [facility] BMI Calculated 2014-04-21 11:58:00 [facility] Weight 2014-04-21 11:58:00 [facility] Height 2014-04-21 11:58:00 175.26 cm [facility] BMI Calculated 2014-04-19 21:29:00 [facility] Weight 2014-04-19 21:29:00 [facility] Height 2014-04-19 21:29:00 177.8 cm [facility] Diastolic (mm Hg) 2014-04-19 21:29:00 [facility] Heart Rate 2014-04-19 21:29:00 [facility] Respitory Rate 2014-04-19 21:29:00 [facility] Temperature Oral (F) 2014-04-19 21:29:00 98.6 F [facility] Systolic (mm Hg) 2014-04-19 21:29:00 [facility] Diastolic (mm Hg) 2014-02-12 16:00:00 [facility] Systolic (mm Hg) 2014-02-12 16:00:00 [facility] Respitory Rate 2014-02-12 16:00:00 [facility] BMI Calculated 2014-02-12 12:10:00 [facility] Height 2014-02-12 12:10:00 175.26 cm [facility] Weight 2014-02-12 12:10:00 [facility] Diastolic (mm Hg) 2014-02-12 12:00:00 [facility] Systolic (mm Hg) 2014-02-12 12:00:00 [facility] Respitory Rate 2014-02-12 12:00:00 [facility] Respitory Rate 2014-02-08 12:26:00 [facility] Temperature Oral (F) 2014-02-08 12:26:00 98 F [facility] Diastolic (mm Hg) 2014-02-08 12:26:00 [facility] Systolic (mm Hg) 2014-02-08 12:26:00 [facility] Heart Rate 2014-02-08 12:26:00 [facility] Diastolic (mm Hg) 2014-02-08 09:17:00 [facility] Temperature Oral (F) 2014-02-08 09:17:00 97.8 F [facility] Heart Rate 2014-02-08 09:17:00 [facility] Respitory Rate 2014-02-08 09:17:00 [facility] Systolic (mm Hg) 2014-02-08 09:17:00 [facility] Diastolic (mm Hg) 2014-02-08 04:57:00 [facility] Temperature Oral (F) 2014-02-08 04:57:00 98.4 F [facility] Respitory Rate 2014-02-08 04:57:00 [facility] Systolic (mm Hg) 2014-02-08 04:57:00 [facility] Heart Rate 2014-02-08 04:57:00 [facility] Weight 2014-02-07 05:23:00 [facility] BMI Calculated 2014-02-07 05:23:00 [facility] Height 2014-02-07 05:23:00 175.26 cm [facility] BMI Calculated 2014-01-18 19:35:00 [facility] Weight 2014-01-18 19:35:00 [facility] Height 2014-01-18 19:35:00 175.26 cm [facility] Systolic (mm Hg) 2014-01-18 19:35:00 [facility] Respitory Rate 2014-01-18 19:35:00 [facility] Temperature Oral (F) 2014-01-18 19:35:00 97.9 F [facility] Diastolic (mm Hg) 2014-01-18 19:35:00 [facility] Heart Rate 2014-01-18 19:35:00 [facility] Heart Rate 2014-01-01 20:16:00 [facility] Temperature Oral (F) 2014-01-01 20:16:00 98.3 F [facility] Respitory Rate 2014-01-01 20:16:00 [facility] Systolic (mm Hg) 2014-01-01 20:16:00 [facility] Diastolic (mm Hg) 2014-01-01 20:16:00 [facility] Respitory Rate 2014-01-01 16:29:00 [facility] Heart Rate 2014-01-01 16:29:00 [facility] Systolic (mm Hg) 2014-01-01 16:29:00 [facility] Diastolic (mm Hg) 2014-01-01 16:29:00 [facility] Temperature Oral (F) 2014-01-01 16:29:00 98.1 F [facility] BMI Calculated 2014-01-01 15:17:00 [facility] Weight 2014-01-01 15:17:00 [facility] Height 2014-01-01 15:17:00 175.26 cm [facility] BMI Calculated 2014-01-01 12:56:00 [facility] Height 2014-01-01 12:56:00 175.26 cm [facility] Weight 2014-01-01 12:56:00 [facility] Respitory Rate 2014-01-01 12:50:00 [facility] Systolic (mm Hg) 2014-01-01 12:50:00 [facility] Diastolic (mm Hg) 2014-01-01 12:50:00 [facility] Temperature Oral (F) 2014-01-01 12:50:00 98.2 F [facility] Heart Rate 2014-01-01 12:50:00 [facility] Respitory Rate 2013-08-24 21:30:00 [facility] Systolic (mm Hg) 2013-08-24 21:30:00 [facility] Temperature Oral (F) 2013-08-24 21:30:00 97.4 F [facility] Heart Rate 2013-08-24 21:30:00 [facility] Diastolic (mm Hg) 2013-08-24 21:30:00 [facility] Heart Rate 2013-08-24 18:04:00 [facility] Temperature Oral (F) 2013-08-24 18:04:00 97.8 F [facility] Systolic (mm Hg) 2013-08-24 18:04:00 [facility] Diastolic (mm Hg) 2013-08-24 18:04:00 [facility] Respitory Rate 2013-08-24 18:04:00 [facility] Systolic (mm Hg) 2013-08-24 15:00:00 [facility] Respitory Rate 2013-08-24 15:00:00 [facility] Heart Rate 2013-08-24 15:00:00 [facility] Diastolic (mm Hg) 2013-08-24 15:00:00 [facility] Temperature Oral (F) 2013-08-24 15:00:00 97.2 F [facility] Weight 2013-08-22 17:31:00 [facility] Height 2013-08-22 17:31:00 177.8 cm [facility] Height 2013-08-18 22:55:00 177.8 cm [facility] Weight 2013-08-18 22:55:00 [facility] Height 2013-08-17 18:13:00 177.8 cm [facility] Weight 2013-08-17 18:13:00 [facility] Systolic (mm Hg) 2013-06-01 17:15:00 [facility] Heart Rate 2013-06-01 17:15:00 [facility] Respitory Rate 2013-06-01 17:15:00 [facility] Diastolic (mm Hg) 2013-06-01 17:15:00 [facility] Temperature Oral (F) 2013-06-01 17:15:00 99.5 F [facility] Diastolic (mm Hg) 2013-06-01 12:15:00 [facility] Heart Rate 2013-06-01 12:15:00 [facility] Systolic (mm Hg) 2013-06-01 12:15:00 [facility] Temperature Oral (F) 2013-06-01 12:15:00 99.6 F [facility] Respitory Rate 2013-06-01 12:15:00 [facility] Diastolic (mm Hg) 2013-06-01 09:34:00 [facility] Systolic (mm Hg) 2013-06-01 09:34:00 [facility] Respitory Rate 2013-06-01 09:34:00 [facility] Heart Rate 2013-06-01 09:34:00 [facility] Temperature Oral (F) 2013-06-01 09:34:00 99.2 F [facility] Height 2013-05-31 00:21:00 177.8 cm [facility] Weight 2013-05-31 00:21:00 [facility] Respitory Rate 2013-05-20 19:00:00 [facility] Heart Rate 2013-05-20 19:00:00 [facility] Diastolic (mm Hg) 2013-05-20 19:00:00 [facility] Temperature Oral (F) 2013-05-20 19:00:00 98.0 F [facility] Systolic (mm Hg) 2013-05-20 19:00:00 [facility] Temperature Oral (F) 2013-05-20 17:00:00 98.7 F [facility] Diastolic (mm Hg) 2013-05-20 17:00:00 [facility] Systolic (mm Hg) 2013-05-20 17:00:00 [facility] Respitory Rate 2013-05-20 17:00:00 [facility] Heart Rate 2013-05-20 17:00:00 [facility] Respitory Rate 2013-05-20 13:00:00 [facility] Heart Rate 2013-05-20 13:00:00 [facility] Temperature Oral (F) 2013-05-20 13:00:00 98.3 F [facility] Diastolic (mm Hg) 2013-05-20 13:00:00 [facility] Systolic (mm Hg) 2013-05-20 13:00:00 [facility] Height 2013-04-23 20:15:00 177.8 cm [facility] Height 2013-04-21 22:32:00 177.8 cm [facility] Weight 2013-04-18 13:41:00 [facility] Height 2013-04-18 13:41:00 254 cm [facility] Weight 2013-04-17 21:40:00 [facility] Procedures Procedure Date / Time Performing Clinician Source Performed XR CHEST 1 VW 2020-01-24 07:13:41 Emanuel Yadavo [facility] ABORH CONFIRMATION 2019-12-20 05:20:00 [facility] INTUBATION 2019-12-20 03:59:19 Jose Tolliver [facility] HB ABO GROUPING 2019-12-20 03:20:00 [facility] GALV/CLC ONLY - URINE 2019-12-20 01:12:00 [facility] DRUG (IMMUNOASSAY) - 4 ER PANEL PROFILE / HEMOGRAM 2019-12-19 17:10:[address] [facility] Heal th FIBRINOGEN 2019-12-19 17:09:00 Jacqueline Larson [facility] URINALYSIS 2019-12-19 08:42:00 IbEmanuel arguetao F [facility] URINE CULTURE 2019-12-19 08:42:00 IbvalentinounEmanuel rodriguezo F [facility] CT ABDOMEN PELVIS W 2019-12-19 08:34:19 Ibikunjennifer, Basiausho F [facility] CONTRAST LIPASE 2019-12-19 07:41:00 Ibikunjennifer, Basiausho F [facility] HEPATIC FUNCTION PANEL 2019-12-19 07:41:00 IbIllumiounle, Folusho F [facility] ([id number]) (ALB,T.PRO,BILI T,BU/BC,ALT,AST,ALK PHOS) BASIC METABOLIC PANEL 2019-12-19 07:41:00 Ibikunle, Folusho F [facility] (NA, K, CL, CO2, GLUCOSE, BUN, CREATININE, CA) CBC WITH DIFFERENTIAL 2019-12-19 07:41:00 Ibikunle, Folusho F [facility] PROTHROMBIN TIME / INR 2019-12-19 07:41:00 Ibikunle, Folusho F [facility] ACTIVATED PARTIAL 2019-12-19 07:41:00 Ibikunle, Folusho F [facility] H ealth THRMPLAS DARRELL EKG-12 LEAD 2019-12-19 07:38:[address] [facility] Heal th NOTICE OF PRIVACY 2019-12-19 07:27:02 Doctor Unassigned, No [facility] Health PRACTICES Name CONSENT/REFUSAL FOR 2019-12-19 07:21:12 Doctor Unassigned, No [facility] DIAGNOSIS AND TREATMENT Name EXTERNAL PROVIDER 2019-11-05 12:01:00 Doctor Unassigned, No [facility] Health RECORDS Name Examination of spine [facility] dical Center, [place] [facility], [facility] Hepatectomy [facility], [place] [facility], [facility] Kidney excision [facility], [place] [facility], [facility] Lobectomy of lung [facility], [place] [facility], [facility] ORIF - Open reduction [facility] edical and internal fixation of Center, [place], fracture [facility] Plan of Care Planned Activity Planned Date Details Comments Source Future Scheduled Test [facility] 46542-2[facility] Future Scheduled Test Plan of Care [code = [facility] 54395-9] [facility] Future Scheduled Test Plan of Care [code = [facility] 44672-1] [facility] Future Scheduled Test Plan of Care [code = [facility] 90263-4] [facility] Future Scheduled Test Plan of Care [code = [facility] 15636-7] [facility] Future Scheduled Test Plan of Care [code = [facility] 84399-9] [facility] Future Scheduled Test Plan of Care [code = [facility] 29883-8] [facility] Future Scheduled Test BASIC METABOLIC PANEL [facility] (NA, K, CL, CO2, [facility] ospital GLUCOSE, BUN, CREATININE, CA) [code = 17957-2] Future Scheduled Test Plan of Care [code = [facility] 39176-5] [facility] Future Scheduled Test Plan of Care [code = [facility] 88332-5] [facility] Future Scheduled Test PROFILE / HEMOGRAM [facility] [code = 46225-9] [facility] ospital Future Scheduled Test HEPATIC FUNCTION [facility] PANEL (98870) [facility] (ALB,T.PRO,BILI T,BU/BC,ALT,AST,ALK PHOS) [code = 15587-6] Future Scheduled Test Plan of Care [code = [facility] 07688-4] [facility] Future Scheduled Test URINE DRUG (LCMSMS) - [facility] PANEL [code = 13977] Future Scheduled Test URINE DRUG (LCMSMS) - [facility] PANEL [code = [facility] 20531] Future Scheduled Test Plan of Care [code = [facility] 37224-6] [facility] Future Scheduled Test Plan of Care [code = [facility] 86541-5] [facility] Future Scheduled Test URINE DRUG (LCMSMS) - [facility] PANEL [code = 14615] Future Scheduled Test URINE DRUG (LCMSMS) - [facility] PANEL [code = [facility] 63810] Future Scheduled Test Plan of Care [code = [facility] 30217-3] [facility] Future Scheduled Test Plan of Care [code = [facility] 76801-2] [facility] Future Scheduled Test Plan of Care [code = [facility] 26815-8] [facility] Future Scheduled Test Plan of Care [code = [facility] 52889-4] [facility] Future Scheduled Test Plan of Care [code = [facility] 63812-0] [facility] Future Scheduled Test Plan of Care [code = [facility] 26010-9] [facility] Future Scheduled Test Plan of Care [code = [facility] 94477-0] [facility] Future Scheduled Test Plan of Care [code = [facility] 80787-3] [facility] Future Scheduled Test Plan of Care [code = [facility] 12462-7] [facility] Future Scheduled Test Plan of Care [code = [facility] 61591-2] [facility] Future Scheduled Test Plan of Care [code = [facility] 28075-5] [facility] Future Scheduled Test Plan of Care [code = [facility] 57314-1] [facility] Future Scheduled Test Plan of Care [code = [facility] 13475-9] [facility] Future Scheduled Test Plan of Care [code = [facility] 93509-7] [facility] Future Scheduled Test Plan of Care [code = [facility] 69502-7] [facility] Future Scheduled Test Plan of Care [code = [facility] 51103-2] [facility] Future Scheduled Test Plan of Care [code = [facility] 90991-0] [facility] Future Scheduled Test Plan of Care [code = [facility] 13175-7] [facility] Encounters Start End Encounter Admission Attending Care Care Encounter Source Date/Time Date/Time Type Type Clinicians Facility Department ID 2020-03-10 KARIN MHIEALT [facility] [id number] M H 21:34:40 Medical 01 [facility] 2020-03-08 2020-03-[address] [facility] [id number] 00:00:00 00:00:00 [facility] [id number] [place] [id number] Professio [phone] [place] [address] Office Building [facility] 2020-03-02 2020-03-[address] [facility] [id number] 00:00:00 00:00:00 [facility] [id number] [place] [id number] Professio [phone] [place] [address] Office Building [facility] 2020-03-01 2020-03-01 [facility] [id number] 07:34:06 10:55:20 ne Visit Thomas Polanco [id number] [place] [id number] Professio [phone] 2020-03-01 2020-03-[address] [facility] [id number] 00:00:00 00:00:00 [facility] [id number] [place] [id number] Professio [phone] [place] [address] Office Building [facility] 2020-01-26 2020-01-[address] [facility] Health [id number] [facility] 00:00:00 00:00:00 [facility] 2020-01-26 2020-01-[address] [facility] [id number] 00:00:00 00:00:00 [facility] [id number] [place] [id number] Professio [phone] [place] [address] Office [address] [facility] 2020-01-26 2020-01-26 [facility] [id number] 00:00:00 00:00:00 [facility] [id number] [place] [id number] Professio [phone] [place] 044 Office Building [facility] 2020-01-26 2020-01-26 Refjeane [facility]AD[facility] [id number] 00:00:00 00:00:00 [facility] [id number] [place] [id number] Professio [phone] nal [facility] Office Building [facility] 2020-01-24 2020-01-24 Emergency MHIEALT [facility] [id number] [facility] 01:45:53 03:42:00 [facility] 2020-01-23 2020-01-23 [facility] [id number] 20:45:53 22:42:00 Ugo Levy [place] [id number] [place] [id number] [place] [phone] [id number] 2019-12-30 2019-12-[address] [facility] Health [id number] [facility] 00:00:00 00:00:00 [facility] 2019-12-30 2019-12-30 Telephone [facility] [id number] 00:00:00 00:00:00 [facility] [id number] [place] [id number] Professio [phone] [place] [address] Office [address] [facility] 2019-12-28 2019-12-[address] [facility] Health [id number] [facility] 00:00:00 00:00:00 [facility] 2019-12-28 2019-12-28 Refjeane [facility]AD[facility] [id number] 00:00:00 00:00:00 [facility] [id number] [place] [id number] Professio [phone] [place] [address] Office [address] [facility] 2019-12-28 2019-12-28 Telephone [facility] [id number] 00:00:00 00:00:00 [facility] [id number] [place] [id number] Professio [phone] [place] [address] Office [facility] 2019-12-28 2019-12-[address] [facility] [facility] [id number] 00:00:00 00:00:00 [facility] [id number] [place] 4.2.7.2.686 Professio [phone] [place] [address] Office [facility] 2019-12-24 2019-12-24 Refill MHIEALT [facility] [id number] [facility] 00:00:00 00:00:00 [facility] 2019-12-24 2019-12-24 [facility] 1.2.840.114 [id number] 00:00:00 00:00:00 [facility] 350.1.13.10 [place] 4.2.7.2.686 Professio [phone] [address] 2019-12-23 2019-12-23 Refill MHIEALT [facility] [id number] [facility] 00:00:00 00:00:00 [facility] 2019-12-23 2019-12-23 [facility] 1.2.840.114 [id number] 00:00:00 00:00:00 [facility] [id number] [place] 4.2.7.2.686 Professio [phone] [place] [address] Office [facility] 2019-12-19 2019-12-20 Emergency MHIEALT Medicine [id number] [facility] 01:31:09 23:15:00 ([place] 10C) [facility] 2019-12-18 2019-12-20 Emergency Ugo Yadav 1.2. 840.114 [id number] 19:31:09 18:15:00 Jennifer Holbrook 350.1.13.10 [facility] 4.2.7.2.686 [phone] [phone] 2019-12-19 Anesthesia MHIEALT Estrlela [id number] [facility] 21:47:00 22:24:00 [facility] OR Department 2019-12-19 2019-12-19 Anesthesia Michael Adan De La Rosa 1.2.840.114 [id number] 15:47:00 16:24:00 [place] 350.1.13.10 [facility] 4.2.7.2.686 [phone] 2019-12-18 2019-12-[address] [facility] [id number] [facility] 00:00:00 00:00:00 Only Health 2019-12-18 2019-12-18 Orders Doctor ADA 1.2.840.114 [id number] 00:00:00 00:00:00 Only Unassigned, MEGHAN 350.1.13.10 [place] [facility] 4.2.7.2.686 [phone] 2019-12-16 2019-12-16 Telephone MHIEALT [facility] [id number] [facility] 00:00:00 00:00:00 [facility] 2019-12-16 2019-12-16 Telephone [facility] 1.2.793.837 [id number] 00:00:00 00:00:00 [facility] 350.1.13.10 [place] 4.2.7.2.686 Professio [phone] nal 044 Office [facility] 2019-12-02 2019-12-02 Office MHIEALT [facility] [id number] [facility] 15:13:59 15:28:59 Visit [facility] 2019-12-02 2019-12-02 Office [facility] 1.2.840.114 [id number] 09:13:59 09:28:59 Visit [facility] 350.1.13.10 [place] 4.2.7.2.686 Professio [phone] nal 044 Office [facility] 2019-12-02 2019-12-02 Office [facility] 1.2.840.114 [id number] 09:13:59 09:28:59 Visit [facility] 350.1.13.10 [place] 4.2.7.2.686 Professio [phone] nal 044 Office [facility] 2019-11-26 2019-11-26 Telephone MHIEALT [facility] [id number] [facility] 00:00:00 00:00:00 [facility] 2019-11-26 2019-11-26 Telephone [facility] 1.2.998.961 [id number] 00:00:00 00:00:00 [facility] 350.1.13.10 [place] 4.2.7.2.686 Professio [phone] nal 044 Office [facility] 2019-11-05 2019-11-05 [facility] [id number] 00:00:00 00:00:00 Only Health 2019-11-05 2019-11-05 Orders Doctor ADA 1.2.840.114 [id number] 00:00:00 00:00:00 Only Unassigned, MEGHAN 350.1.13.10 [place] [facility] 4.2.7.2.686 [phone] [phone] 2019-10-28 Refill [facility] [id number] [facility] 00:00:00 00:00:00 [facility] 2019-10-28 2019-10-28 Telephone IEWVT [facility] [id number] [facility] 00:00:00 00:00:00 [facility] 2019-10-28 2019-10-28 [facility] 1.2.840.114 [id number] 00:00:00 00:00:00 [facility] 350.1.13.10 [place] 4.2.7.2.686 Professio [phone] nal 044 Office [facility] 2019-10-28 2019-10-28 [facility]ill [facility] 1.2.840.114 [id number] 00:00:00 00:00:00 [facility] 350.1.13.10 [place] 4.2.7.2.686 Professio [phone] nal 044 Office [facility] 2019-10-28 2019-10-28 [facility] 1.2.840.114 [id number] 00:00:00 00:00:00 [facility] 350.1.13.10 [place] 4.2.7.2.686 Professio [phone] [place] [address] Office [facility] 2019-10-28 2019-10-28 Telephone [facility] 1.2.220.476 [id number] 00:00:00 00:00:00 [facility] 350.1.13.10 [place] 4.2.7.2.686 Professio [phone] [place] [address] Office [facility] 2019-10-28 2019-10-[address] [facility] 1.2.840.114 [id number] 00:00:00 00:00:00 [facility] 350.1.13.10 [place] 4.2.7.2.686 Professio [phone] [place] [address] Office [facility] 2019-10-28 2019-10-[address] [facility] 1.2.840.114 [id number] 00:00:00 00:00:00 [facility] 350.1.13.10 [place] 4.2.7.2.686 Professio [phone] [place] [address] Office [facility] 2019-10-27 2019-10-27 Telephone MHIEALT [facility] [id number] [facility] 00:00:00 00:00:00 [facility] 2019-10-27 2019-10-27 Telephone [facility] 1.2.850.565 [id number] 00:00:00 00:00:00 [facility] 350.1.13.10 [place] 4.2.7.2.686 Professio [phone] [place] [address] Office [facility] 2019-10-27 2019-10-27 Telephone [facility] 1.2.323.539 [id number] 00:00:00 00:00:00 [facility] 350.1.13.10 [place] 4.2.7.2.686 Professio [phone] [place] [address] Office [facility] 2019-08-04 2019-08-05 [facility] [id number] MH 23:18:30 01:05:[address] 2019-08-04 2019-08-04 Outpatient Marry [facility] [id number] 18:18:30 20:05:00 Rodney 14 2019-08-04 2019-08-04 Emergency E MHSE MHSE [id number] MHSE 18:18:00 18:18:00 2019-07-01 2019-07-01 Office MHIEALT [facility] [id number] [facility] 16:53:44 17:31:56 Visit [facility] 2019-07-01 2019-07-[address] [facility] 1.2.840.114 [id number] 11:53:44 12:31:56 Visit [facility] 350.1.13.10 [place] 4.2.7.2.686 Professio [phone] [place] [address] Office [facility] 2019-07-01 2019-07-[address] [facility] 1.2.840.114 [id number] 11:53:44 12:08:44 Visit [facility] 350.1.13.10 [place] 4.2.7.2.686 Professio [phone] [place] [address] Office [facility] 2019-07-01 2019-07-[address] [facility] 1.2.840.114 [id number] 11:53:44 12:08:44 Visit [facility] 350.1.13.10 [place] 4.2.7.2.686 Professio [phone] [place] [address] Office [facility] 2019-07-01 2019-07-01 Refill BUDALT [facility] [id number] [facility] 00:00:00 00:00:00 [facility] 2019-07-01 2019-07-[address] [facility] 1.2.840.114 [id number] 00:00:00 00:00:00 [facility] 350.1.13.10 [place] 4.2.7.2.686 Professio [phone] [place] [address] Office [facility] 2019-06-01 2019-06-01 Refill MHIEALT [facility] [id number] [facility] 00:00:00 00:00:00 [facility] 2019-06-01 2019-06-[address] [facility] 1.2.840.114 [id number] 00:00:00 00:00:00 [facility] 350.1.13.10 [place] 4.2.7.2.686 [facility] [phone] nal 044 Office [facility] 2019-03-17 2019-03-17 Emergency [facility] [id number] MH 01:20:49 05:06:00 Dusty 13 [facility] 2019-03-16 2019-03-17 Outpatient Edmund, MHPL MHPL [id number] 20:20:49 00:06:00 Doug Chin 13 2019-03-16 2019-03-16 Emergency E MHBL MHBL [id number] MHBL 20:20:00 20:20:00 2014-08-30 2014-08-31 EC MHIEALT [facility] [id number] MH 21:12:00 14:57:[address] 2014-08-30 2014-08-31 Outpatient Jose, MHIEALT MHIEALT [id number] 15:12:00 08:57:00 Muriel Lexx 12 2014-06-01 2014-06-04 Inpatient [facility] [id number] MH 10:42:00 20:05:00 Dusty 11 [facility] 2014-06-01 2014-06-04 Outpatient Mairbel, MHIEALT MHIEALT [id number] 05:42:00 15:05:00 Donnylynda Dasilva 2014-05-13 2014-05-13 EC MHIEALT [facility] [id number] MH 07:24:00 16:46:00 Emergency Crane 12 [facility] 2014-05-13 2014-05-13 Outpatient Ramón, MHIEALT MHIEALT [id number] 02:24:00 11:46:00 Svetlana Patel 12 2014-05-05 2014-05-06 OBS MHIE[facility] [id number] MH 06:49:00 19:40:00 Observatio Crane 10 [facility] 2014-05-05 2014-05-06 Outpatient Marlow, MHIEALT MHIEALT [id number] 01:49:00 14:40:00 Leonard Vaca 2014-04-21 2014-04-21 Bedded MHIEALT [facility] [id number] MH 11:33:00 15:20:00 Outpatient Dusty [facility] 2014-04-21 2014-04-21 Outpatient Kathryn, MHBUDALT MHIEALT [id number] 06:33:00 10:20:00 Rasheed Paty Belcher 2014-04-19 2014-04-19 EC MHIEALT [facility] [id number] MH 21:21:00 23:07:00 Emergency Crane 08 [facility] 2014-04-19 2014-04-19 Outpatient Stephen MHBUDALT MHIEALT [id number] 16:21:00 18:07:00 Michael Kohler 2014-04-06 2014-04-07 Outpatient MH[facility] [id number] MH 13:22:00 04:59:00 Crane 06 [facility] 2014-04-06 2014-04-06 Outpatient Shree Alvarado MHIEALT MHIEALT [id number] 08:22:00 23:59:00 Dez 06 2014-02-12 2014-02-12 Bedded MHIEALT [facility] [id number] MH 12:00:00 16:00:00 Outpatient Dusty 05 [facility] 2014-02-12 2014-02-12 Outpatient Physician, JULITAALCee MHIEALT [id number] 07:00:00 11:00:00 Non 05 Associated 2014-02-07 2014-02-08 OBS MHIE[facility] [id number] MH 05:18:00 17:41:00 Observatio Dusty 16 [facility] n Patient [facility] 2014-02-07 2014-02-08 Outpatient JOSEPH López MHIEALT [id number] 00:18:00 12:41:00 Donny 16 Ahmed 2014-01-18 2014-01-18 EC MHIEALT [facility] [id number] MH 19:32:00 23:26:00 Emergency Dusty 04 [facility] 2014-01-18 2014-01-18 Outpatient Mike MHBUDALT MHIEALT [id number] 14:32:00 18:26:00 Kayode Pat Nick 2014-01-01 2014-01-02 Inpatient [facility]IE[facility] [id number] MH 12:48:00 00:07:00 Dusty Julio_[id number] [address] 2014-01-01 2014-01-01 Outpatient Kashmir, MHIEALT MHIEALT [id number] 07:48:00 19:07:00 Leonard Julio 2013-11-03 2013-11-03 KARIN [facility] [place] [id number] MH 09:53:00 15:00:00 Medical 03 [facility] 2013-11-03 2013-11-03 Outpatient MHIEALT MHIEALT [id number] Memoria 09:53:00 15:00:00 [facility] 2013-09-18 2013-09-18 AUDIT MHIEALT MHIEALT [id number] U T 11:47:54 17:47:53 Physic i ans 2013-09-18 2013-09-18 Outpatient MHIEALT MHIEALT [id number] 11:47:54 11:47:53 2013-08-16 2013-08-24 Inpatient [facility] [place] [id number] MH 23:18:00 17:17:00 Medical 02 [facility] 2013-08-16 2013-08-24 Outpatient MHIEALT MHIEALT [id number] Memoria 16:55:00 17:17:00 02 l [facility] 2013-07-31 2013-07-31 AUDIT MHIEALT MHIEALT [id number] U T 12:04:25 17:04:25 Physic i ans 2013-07-31 2013-07-31 Outpatient MHIEALT MHIEALT [id number] 12:04:25 12:04:25 2013-07-31 2013-07-17 EST, MHIEALT MHIEALT [id number] T 10:15:00 16:17:37 Provider: Pedro MANCERA MD, Status: Pen, Time: 10:15 AM 2013-07-17 2013-07-17 AUDIT MHIEALT MHIEALT [id number] U T 11:17:37 16:17:37 Physic i ans 2013-07-17 2013-07-17 Outpatient MHIEALT MHIEALT [id number] 11:17:37 11:17:37 2013-06-14 2013-06-14 AUDIT MHIEALT MHIEALT [id number] U T 15:22:41 20:22:19 Physic i ans 2013-06-14 2013-06-14 Outpatient MHIEALT MHIEALT [id number] 15:22:41 15:22:19 2013-06-12 2013-06-02 EST, MHIEALT MHIEALT [id number] T 10:00:00 21:04:01 Provider: Pdero MANCERA MD, Status: Pen, Time: 10:00 AM 2013-06-02 2013-06-02 AUDIT MHIEALT MHIEALT [id number] U T 16:04:22 21:04:01 Physic i ans 2013-06-02 2013-06-02 Outpatient MHIEALT MHIEALT [id number] 16:04:22 16:04:01 2013-05-30 2013-06-01 Inpatient [facility] [place] [id number] MH 22:25:00 15:56:00 Medical 00 [facility] 2013-04-17 2013-05-20 Inpatient MH[facility] [place] [id number] MH 17:20:00 18:10:00 Medical 67 [facility] 2013-04-17 2013-04-17 AA MH[facility] [place] [id number] MH 17:20:00 23:59:00 Medical 70 [facility] Results Test Description Test Time Test Comments Results Result Comments Source PROFILE / HEMOGRAM 2019-12-20 7.17 [facility] 19:24:00 PROFILE / HEMOGRAM 2019-12-20 3.72 [facility] 19:24:00 PROFILE / HEMOGRAM 2019-12-20 12.2 [facility] 19:24:00 PROFILE / HEMOGRAM 2019-12-20 36.4 [facility] 19:24:00 PROFILE / HEMOGRAM 2019-12-20 19:24:00 Test Item Value Reference Range Interpretation Comme nts <td ID="[id number]">[facility]CH</td><td><span 32.8 pg 26.1-32.7 style="flagData">32.8</span><span style="flagData"> (H)</span></td><td>26.1 - 32.7 pg</td><td>[facility]</td><td ID="[id number]"/> (test code = <td ID="[id number]">[facility]CH</td><td><span style="flagData">32.8</span><span style="flagData"> (H)</span></td><td>26.1 - 32.7 pg</td><td>[facility]ORY [facility]</td><td ID="[id number]"/>) [facility] HealthPROFILE / [id number] 19:24:0097.8[facility] HealthPROFILE / [id number] 19:24:0033.5[facility] HealthPROFILE / [id number] 19:24:[address] HealthPROFILE / [id number] 19:24:009.5[facility] HealthPROFILE / [id number] 19:24:0014.5[facility] HealthPROFILE / [id number] 19:24:[address] HealthPROFILE / [id number] 19:24:000.0[facility]OL[facility] (NA, K, CL, CO2, GLUCOSE, BUN, CREATININE, CA)2019-12-20 07:53:19071QBUZRandolph HealthC METABOLIC PANEL (NA, K, CL, CO2, GLUCOSE, BUN, CREATININE, CA)2019-12-20 07:53:004.5[facility] (NA, K, CL, CO2, GLUCOSE, BUN, CREATININE, CA)2019-12-20 07:53:64904TSEISheltering Arms HospitalBAC METABOLIC PANEL (NA, K, CL, CO2, GLUCOSE, BUN, CREATININE, CA)2019-12-20 07:53:0021[facility] HospitalBAC METABOLIC PANEL (NA, K, CL, CO2, GLUCOSE, BUN, CREATININE, CA)2019-12-20 07:53:006[facility]OLIC [facility] (NA, K, CL, CO2, GLUCOSE, BUN, CREATININE, CA)2019-12-20 07:53:0014[facility] METABOLIC PANEL (NA, K, CL, CO2, GLUCOSE, BUN, CREATININE, CA)2019-12-20 07:53:34002KNZEYadkin Valley Community Hospital METABOLIC PANEL (NA, K, CL, CO2, GLUCOSE, BUN, CREATININE, CA)2019-12-20 07:53:001.16[facility] METABOLIC PANEL (NA, K, CL, CO2, GLUCOSE, BUN, CREATININE, CA)2019-12-20 07:53:008.1[facility] METABOLIC PANEL (NA, K, CL, CO2, GLUCOSE, BUN, CREATININE, CA)2019-12-20 07:53:0075.5[facility] METABOLIC PANEL (NA, K, CL, CO2, GLUCOSE, BUN, CREATININE, CA)2019-12-20 07:53:0091.5[facility] HealthHEPATIC FUNCTION PANEL (38033) (ALB,T.PRO,BILI T,BU/BC,ALT,AST,ALK PHOS)2019-12-20 07:51:000.4[facility] Health HEPATIC FUNCTION PANEL (93762) (ALB,T.PRO,BILI T,BU/BC,ALT,AST,ALK PHOS) 2019-12-20 07:51:000.3[facility] HealthHEPATIC FUNCTION PANEL (50837) (ALB,T.PRO,BILI T,BU/BC,ALT,AST,ALK PHOS)2019-12-20 07:51:000.0[facility] HealthHEPATIC FUNCTION PANEL (82123) (ALB,T.PRO,BILI T,BU/BC,ALT,AST,ALK PHOS)2019-12-20 07:51:006.7[facility] HealthHEPATIC FUNCTION PANEL (43030) (ALB,T.PRO,BILI T,BU/BC,ALT,AST,ALK PHOS) 2019-12-20 07:51:003.7[facility] HealthHEPATIC FUNCTION PANEL (92143) (ALB,T.PRO,BILI T,BU/BC,ALT,AST,ALK PHOS)2019-12-20 07:51:0045[facility] HealthHEPATIC FUNCTION PANEL (74879) (ALB,T.PRO,BILI T,BU/BC,ALT,AST,ALK PHOS)2019-12-20 07:51:06361FAAYSheltering Arms HospitalHEPATIC FUNCTION PANEL (89900) (ALB,T.PRO,BILI T,BU/BC,ALT,AST,ALK PHOS) 2019-12-20 07:51:0063[facility] HealthPROFILE / [id number] 07:29:009.58[facility] HealthPROFILE / [id number] 07:29:003.34[facility] HealthPROFILE / HEMOGRAM 2019-12-20 07:29:0011.2[facility] HealthPROFILE / [id number] 07:29:0032.8[facility] HealthPROFILE / [id number] 07:29:00 Test Item Value Reference Range Interpretation Comments <td 33.5 pg 26.1-32.7 ID="[id number]">[facility]</td ><td><span style="flagData">33.5</span><span style="flagData"> (H)</span></td><td>26.1 - 32.7 pg</td><td>[facility] LABORATORY SERVICES</td><td ID="[id number]"/> (test code = <td ID="[id number]">MC H</td><td><span style="flagData">33.5</span><span style="flagData"> (H)</span></td><td>26.1 - 32.7 pg</td><td>[facility]ORY SERVICES</td><td ID="[id number]"/>) [facility] HealthPROFILE / [id number] 07:29:[address].2[facility] HealthPROFILE / [id number] 07:29:[address]1[facility] HealthPROFILE / [id number] 07:29:[address] HealthPROFILE / [id number] 07:29:[address]0[facility] HealthPROFILE / [id number] 07:29:0014.6[facility] HealthPROFILE / [id number] 07:29:[address] HealthPROFILE / [id number] 07:29:000.0[facility] HealthPROFILE / [id number] 19:35:006.54[facility] HealthPROFILE / [id number] 19:35:[address] HealthPROFILE / [id number] 19:35:0011.4[facility] HealthPROFILE / [id number] 19:35:0033.6[facility] HealthPROFILE / [id number] 19:35:00 Test Item Value Reference Range Interpretation Comments <td 32.2 pg 26.1-32.7 ID="[id number]">[facility]CH</td ><td>32.2</td><td>26.1 - 32.7 pg</td><td>[facility]</td><td ID="[id number]&quo t;/> (test code = <td ID="[id number]">[facility]CH</td ><td>32.2</td><td>26.1 - 32.7 pg</td><td>[facility]</td><td ID="[id number]"/>) [facility] HealthPROFILE / [id number] 19:35:[address]94.9[facility] HealthPROFILE / [id number] 19:35:0033.9[facility] HealthPROFILE / [id number] 19:35:[address] HealthPROFILE / [id number] 19:35:009.5[facility] HealthPROFILE / [id number] 19:35:0014.5[facility] HealthPROFILE / [id number] 19:35:[address] HealthPROFILE / [id number] 19:35:000.0[facility] METABOLIC PANEL (NA, K, CL, CO2, GLUCOSE, BUN, CREATININE, CA)2019-12-19 12:02:73045TMWMYadkin Valley Community Hospital METABOLIC PANEL (NA, K, CL, CO2, GLUCOSE, BUN, CREATININE, CA)2019-12-19 12:02:003.7[facility] METABOLIC PANEL (NA, K, CL, CO2, GLUCOSE, BUN, CREATININE, CA)2019-12-19 12:02:45762ZUWEYadkin [facility] Hospital METABOLIC PANEL (NA, K, CL, CO2, GLUCOSE, BUN, CREATININE, CA)2019-12-19 12:02:0020[facility] METABOLIC PANEL (NA, K, CL, CO2, GLUCOSE, BUN, CREATININE, CA)2019-12-19 12:02:009[facility] METABOLIC PANEL (NA, K, CL, CO2, GLUCOSE, BUN, CREATININE, CA)2019-12-19 12:02:0014[facility] METABOLIC PANEL (NA, K, CL, CO2, GLUCOSE, BUN, CREATININE, CA)2019-12-19 12:02:0092[facility] METABOLIC PANEL (NA, K, CL, CO2, GLUCOSE, BUN, CREATININE, CA)2019-12-19 12:02:001.12[facility] METABOLIC PANEL (NA, K, CL, CO2, GLUCOSE, BUN, CREATININE, CA)2019-12-19 12:02:008.5[facility] METABOLIC PANEL (NA, K, CL, CO2, GLUCOSE, BUN, CREATININE, CA)2019-12-19 12:02:0078.6[facility] (NA, K, CL, CO2, GLUCOSE, BUN, CREATININE, CA)2019-12-19 12:02:0095.3[facility]73314[facility] (ALB,T.PRO,BILI T,BU/BC,ALT,AST,ALK PHOS)2019-12-19 12:02:000.5[facility] HEPATIC FUNCTION PANEL (23827) (ALB,T.PRO,BILI T,BU/BC,ALT,AST,ALK PHOS) 2019-12-19 12:02:000.3[facility] HealthHEPATIC FUNCTION PANEL (10213) (ALB,T.PRO,BILI T,BU/BC,ALT,AST,ALK PHOS)2019-12-19 12:02:000.0[facility] HealthHEPATIC FUNCTION PANEL (67425) (ALB,T.PRO,BILI T,BU/BC,ALT,AST,ALK PHOS)2019-12-19 12:02:006.9[facility] HealthHEPATIC FUNCTION PANEL (45959) (ALB,T.PRO,BILI T,BU/BC,ALT,AST,ALK PHOS) 2019-12-19 12:02:003.9[facility] HealthHEPATIC FUNCTION PANEL (55559) (ALB,T.PRO,BILI T,BU/BC,ALT,AST,ALK PHOS)2019-12-19 12:02:0071[facility] HealthHEPATIC FUNCTION PANEL (52223) (ALB,T.PRO,BILI T,BU/BC,ALT,AST,ALK PHOS)2019-12-19 12:02:73161X[facility] HealthHEPATIC FUNCTION PANEL (40062) (ALB,T.PRO,BILI T,BU/BC,ALT,AST,ALK PHOS) 2019-12-19 12:02:0087[facility] [id number] 11:46:61037[facility] PROTHROMBIN TIME / [id number] 11:46:0011.8[facility] HealthPROTHROMBIN TIME / INR 2019-12-19 11:46:001.0[facility] HealthPROFILE / [id number] 11:30:009.41[facility] HealthPROFILE / [id number] 11:30:003.54[facility] HealthPROFILE / HEMOGRAM 2019-12-19 11:30:0011.6[facility] HealthPROFILE / [id number] 11:30:0033.9[facility] HealthPROFILE / [id number] 11:30:00 Test Item Value Reference Range Interpretation Comments <td 32.8 pg 26.1-32.7 ID="[id number]">[facility]</td ><td><span style="flagData">32.8</span><span style="flagData"> (H)</span></td><td>26.1 - 32.7 pg</td><td>[facility]</td><td ID="[id number]"/> (test code = <td ID="[id number]">[facility]</td><td><span style="flagData">32.8</span><span style="flagData"> (H)</span></td><td>26.1 - 32.7 pg</td><td>[facility]</td><td ID="[id number]"/>) [facility] [facility] HealthPROFILE / [id number] 11:30:[address]95.8[facility] HealthPROFILE / [id number] 11:30:0034.2[facility] HealthPROFILE / [id number] 11:30:[address] HealthPROFILE / [id number] 11:30:009.6[facility] HealthPROFILE / [id number] 11:30:0014.5[facility] HealthPROFILE / [id number] 11:30:[address] HealthPROFILE / [id number] 11:30:000.0[facility] HealthUrinalysis 2019-12-19 03:10:005.0[facility] GaxyvcXlnedlqpai8324-57-49 03:10:001.033[facility] Health Frstvmnjng8556-19-01 03:10:003[facility] YjpwvcTznoplwtet0596-09-29 03:10[facility] (NA, K, CL, CO2, GLUCOSE, BUN, CREATININE, CA) 2019-12-19 02:15:97019SKJM HealthBac Metabolic Panel (NA, K, CL, CO2, GLUCOSE, BUN, CREATININE, CA)2019-12-19 02:15:004.2[facility] Metabolic Panel (NA, K, CL, CO2, GLUCOSE, BUN, CREATININE, CA)2019-12-19 02:15:04260YRZNNov[facility] Metabolic Panel (NA, K, CL, CO2, GLUCOSE, BUN, CREATININE, CA)2019-12-19 02:15:0018[facility] Metabolic Panel (NA, K, CL, CO2, GLUCOSE, BUN, CREATININE, CA)2019-12-19 02:15:0018[facility] Metabolic Panel (NA, K, CL, CO2, GLUCOSE, BUN, CREATININE, CA)2019-12-19 02:15:0016[facility] Metabolic Panel (NA, K, CL, CO2, GLUCOSE, BUN, CREATININE, CA)2019-12-19 02:15:80297GNMGNov[facility] Metabolic Panel (NA, K, CL, CO2, GLUCOSE, BUN, CREATININE, CA)2019-12-19 02:15:001.15[facility] Metabolic Panel (NA, K, CL, CO2, GLUCOSE, BUN, CREATININE, CA)2019-12-19 02:15:009.8[facility] Metabolic Panel (NA, K, CL, CO2, GLUCOSE, BUN, CREATININE, CA)2019-12-19 02:15:0076.3[facility] (NA, K, CL, CO2, GLUCOSE, BUN, CREATININE, CA)2019-12-19 02:15:0092.5[facility] HealthHepatic Function Panel (ALB, T.PRO, BILI T, BU/BC, ALT, AST, ALK PHOS)2019-12-19 02:15:000.6[facility] Health Hepatic Function Panel (ALB, T.PRO, BILI T, BU/BC, ALT, AST, ALK PHOS)2019-12-19 02:15:000.4[facility] HealthHepatic Function Panel (ALB, T.PRO, BILI T, BU/BC, ALT, AST, ALK PHOS)2019-12-19 02:15:000.0[facility] HealthHepatic Function Panel (ALB, T.PRO, BILI T, BU/BC, ALT, AST, ALK PHOS)2019-12-19 02:15:009.1[facility] Hepatic Function Panel (ALB, T.PRO, BILI T, BU/BC, ALT, AST, ALK PHOS)2019-12-19 02:15:005.2[facility] HealthHepatic Function Panel (ALB, T.PRO, BILI T, BU/BC, ALT, AST, ALK PHOS)2019-12-19 02:15:0091[facility] HealthHepatic Function Panel (ALB, T.PRO, BILI T, BU/BC, ALT, AST, ALK PHOS)2019-12-19 02:15:49193CXIBSheltering [facility] Hospital Hepatic Function Panel (ALB, T.PRO, BILI T, BU/BC, ALT, AST, ALK PHOS)2019-12-19 02:15:0055[facility] HealthLipase [id number] 02:15:94482FNYU SqdajkdBHV5437-26-06 02:02:0024[place] HealthProthrombin Time (PT) / [id number] 02:00:0012.5[facility] HealthProthrombin Time (PT) / [id number] 02:00:001.0[facility] HealthCBC WITH [id number] 01:51:0015.68[facility] HealthCBC WITH [id number] 01:51:004.42[facility] HealthCBC WITH RIEFVEPYSVVM7579-42-03 01:51:0014.6[facility] CBC WITH [id number] 01:51:0041.5[facility] HealthCBC WITH DIFFERENTIAL 2019-12-19 01:51:0093.9[facility] HealthCBC WITH [id number] 01:51:00 Test Item Value Reference Range Interpretation Comments <td 33.0 pg 26.1-32.7 ID="[id number]">MCH</td ><td><span style="flagData">33.0</span><span style="flagData"> (H)</span></td><td>26.1 - 32.7 pg</td><td>[facility]</td><td ID="[id number]"/> (test code = <td ID="[id number]">MCH</td ><td><span style="flagData">33.0</span><span style="flagData"> (H)</span></td><td>26.1 - 32.7 pg</td><td>[facility]</td><td ID="[id number]"/>) [facility] HealthCBC WITH [id number] 01:51:0035.2[facility] HealthCBC WITH [id number] 01:51:0047.3[facility] HealthCBC WITH SQQMYTAUVLDY8745-55-09 01:51:0013.8[facility] HealthCBC WITH RBOMWFZLPWZF0063-97-47 01:51:39486WJHV HealthCBC WITH [id number] 01:51:009.4[facility] HealthCBC WITH DIFFERENTIAL 2019-12-19 01:51:000.0[facility] HealthCBC WITH [id number] 01:51:[address] [facility] HealthCBC WITH [id number] 01:51:001.30[facility] HealthCBC WITH [id number] 01:51:0017.4[facility] HealthCBC WITH [id number] 01:51:007.3[facility] HealthCBC WITH [id number] 01:51:000.6[facility] HealthCBC WITH [id number] 01:51:000.4[facility] HealthCBC WITH DIFFERENTIAL 2019-12-19 01:51:0011.42[facility] HealthCBC WITH KKUICKFYEXNP5095-36-05 01:51:000.[address] [facility] HealthCBC WITH [id number] 01:51:002.73[facility] HealthCBC WITH DUMQGAURZUYF7649-30-29 01:51:001.15[facility] HealthCBC WITH [id number] 01:51:000.10[facility] HealthCBC WITH [id number] 01:51:000.07[facility] Health BASIC METABOLIC [id number] 12:17:00 Test Item Value Reference Range Interpretation Comments SODIUM (BEAKER) 138 meq/L 135-148 (test code = 381) POTASSIUM (BEAKER) 4.1 meq/L 3.6-5.5 Specimen moderately (test code = 379) hemolyzed CHLORIDE (BEAKER) 115 meq/L 98-106 H (test code = 382) CO2 (BEAKER) (test 15 meq/L 20-29 L code = 355) BLOOD UREA NITROGEN 15 mg/dL 10-26 (BEAKER) (test code = 354) CREATININE (BEAKER) 1.23 mg/dL 0.50-1.20 H Specimen moderately (test code = 358) hemolyzed GLUCOSE RANDOM 89 mg/dL 70-110 (BEAKER) (test code = 652) CALCIUM (BEAKER) 8.4 mg/dL 8.5-10.5 L (test code = 697) EGFR (BEAKER) (test 71 mL/min/1.73 ESTIMA ENRICO GFR IS code = 1092) sq m NOT ACCURATE CREATININE CLEARANCE IN PREDICTING GLOMERULAR FILTRATION RATE . ESTIMATED GFR I S NOT APPLICABLE FOR DIALYSIS PATIEN TS. Software Support Technician ID - [id number] 07:12:00 Test Item Value Reference Range Interpretation Comments CULTURE (BEAKER) (test <10,000 col/mL skin code = 1095) ever CBC W/PLT COUNT & AUTO [id number] 06:49:00 Test Item Value Reference Range Interpretation Comments WHITE BLOOD CELL COUNT (BEAKER) 6.3 K/ L 3.5-10.5 (test code = 775) RED BLOOD CELL COUNT (BEAKER) 3.95 M/ L 4.63-6.08 L (test code = 761) HEMOGLOBIN (BEAKER) (test code = 12.7 GM/DL 13.7-17.5 L 410) HEMATOCRIT (BEAKER) (test code = 37.4 % 40.1-51.0 L 411) MEAN CORPUSCULAR VOLUME (BEAKER) 94.7 fL 79.0-92.2 H (test code = 753) MEAN CORPUSCULAR HEMOGLOBIN 32.2 pg 25.7-32.2 (BEAKER) (test code = 751) MEAN CORPUSCULAR HEMOGLOBIN CONC 34.0 GM/DL 32.3-36.5 (BEAKER) (test code = 752) RED CELL DISTRIBUTION WIDTH 12.4 % 11.6-14.4 (BEAKER) (test code = 412) PLATELET COUNT (BEAKER) (test 213 K/CU MM 150-450 code = 756) MEAN PLATELET VOLUME (BEAKER) 10.7 fL 9.4-12.4 (test code = 754) NUCLEATED RED BLOOD CELLS 0 /100 WBC 0-0 (BEAKER) (test code = 413) NEUTROPHILS RELATIVE PERCENT 46 % (BEAKER) (test code = 429) LYMPHOCYTES RELATIVE PERCENT 39 % (BEAKER) (test code = 430) MONOCYTES RELATIVE PERCENT 10 % (BEAKER) (test code = 431) EOSINOPHILS RELATIVE PERCENT 5 % (BEAKER) (test code = 432) BASOPHILS RELATIVE PERCENT 1 % (BEAKER) (test code = 437) NEUTROPHILS ABSOLUTE COUNT 2.87 K/ L 1.78-5.38 (BEAKER) (test code = 670) LYMPHOCYTES ABSOLUTE COUNT 2.46 K/ L 1.32-3.57 (BEAKER) (test code = 414) MONOCYTES ABSOLUTE COUNT (BEAKER) 0.61 K/ L 0.30-0.82 (test code = 415) EOSINOPHILS ABSOLUTE COUNT 0.28 K/ L 0.04-0.54 (BEAKER) (test code = 416) BASOPHILS ABSOLUTE COUNT (BEAKER) 0.03 K/ L 0.01-0.08 (test code = 417) IMMATURE GRANULOCYTES-RELATIVE 0 % 0-1 PERCENT (BEAKER) (test code = 2801) COMPREHENSIVE METABOLIC [id number] 07:01:00 Test Item Value Reference Range Interpretation Comments TOTAL PROTEIN 6.0 gm/dL 6.0-8.3 Specimen sligh tly (BEAKER) (test code = hemoly zed 770) ALBUMIN (BEAKER) 3.5 g/dL 3.5-5.0 Specimen sl ightly (test code = 1145) hemolyzed ALKALINE PHOSPHATASE 110 U/L 40-150 (BEAKER) (test code = 346) BILIRUBIN TOTAL 0.1 mg/dL 0.2-1.2 L Specimen sli ghtly (BEAKER) (test code = hemoly zed 377) SODIUM (BEAKER) (test 135 meq/L 136-145 L code = 381) POTASSIUM (BEAKER) 4.0 meq/L 3.5-5.1 Specimen slightly (test code = 379) hemolyzed CHLORIDE (BEAKER) 114 meq/L 98-107 H (test code = 382) CO2 (BEAKER) (test 16 meq/L 22-29 L code = 355) BLOOD UREA NITROGEN 19 mg/dL 7-21 (BEAKER) (test code = 354) CREATININE (BEAKER) 1.28 mg/dL 0.57-1.25 H Specimen slightly (test code = 358) hemolyzed GLUCOSE RANDOM 97 mg/dL 70-105 (BEAKER) (test code = 652) CALCIUM (BEAKER) 7.9 mg/dL 8.4-10.2 L (test code = 697) AST (SGOT) (BEAKER) 30 U/L 5-34 Specimen slightly (test code = 353) hemolyzed ALT (SGPT) (BEAKER) 42 U/L 6-55 Specimen slightly (test code = 347) hemolyzed EGFR (BEAKER) (test 67 mL/min/1.73 ESTIMA ENRICO GFR IS code = 1092) sq m NOT ACCURATE CREATININE CLEARANCE IN PREDICTING GLOMERULAR FILTRATION RATE . ESTIMATED GFR I S NOT APPLICABLE FOR DIALYSIS PATIEN TS. Software Support Technician ID - HEIDE [facility] W/PLT COUNT & AUTO [id number] 06:03:00 Test Item Value Reference Range Interpretation Comments WHITE BLOOD CELL COUNT (BEAKER) 7.2 K/ L 3.5-10.5 (test code = 775) RED BLOOD CELL COUNT (BEAKER) 3.93 M/ L 4.63-6.08 L (test code = 761) HEMOGLOBIN (BEAKER) (test code = 12.7 GM/DL 13.7-17.5 L 410) HEMATOCRIT (BEAKER) (test code = 37.2 % 40.1-51.0 L 411) MEAN CORPUSCULAR VOLUME (BEAKER) 94.7 fL 79.0-92.2 H (test code = 753) MEAN CORPUSCULAR HEMOGLOBIN 32.3 pg 25.7-32.2 H (BEAKER) (test code = 751) MEAN CORPUSCULAR HEMOGLOBIN CONC 34.1 GM/DL 32.3-36.5 (BEAKER) (test code = 752) RED CELL DISTRIBUTION WIDTH 12.5 % 11.6-14.4 (BEAKER) (test code = 412) PLATELET COUNT (BEAKER) (test 203 K/CU MM 150-450 code = 756) MEAN PLATELET VOLUME (BEAKER) 10.2 fL 9.4-12.4 (test code = 754) NUCLEATED RED BLOOD CELLS 0 /100 WBC 0-0 (BEAKER) (test code = 413) NEUTROPHILS RELATIVE PERCENT 48 % (BEAKER) (test code = 429) LYMPHOCYTES RELATIVE PERCENT 39 % (BEAKER) (test code = 430) MONOCYTES RELATIVE PERCENT 9 % (BEAKER) (test code = 431) EOSINOPHILS RELATIVE PERCENT 4 % (BEAKER) (test code = 432) BASOPHILS RELATIVE PERCENT 1 % (BEAKER) (test code = 437) NEUTROPHILS ABSOLUTE COUNT 3.49 K/ L 1.78-5.38 (BEAKER) (test code = 670) LYMPHOCYTES ABSOLUTE COUNT 2.79 K/ L 1.32-3.57 (BEAKER) (test code = 414) MONOCYTES ABSOLUTE COUNT (BEAKER) 0.62 K/ L 0.30-0.82 (test code = 415) EOSINOPHILS ABSOLUTE COUNT 0.27 K/ L 0.04-0.54 (BEAKER) (test code = 416) BASOPHILS ABSOLUTE COUNT (BEAKER) 0.04 K/ L 0.01-0.08 (test code = 417) IMMATURE GRANULOCYTES-RELATIVE 0 % 0-1 PERCENT (BEAKER) (test code = 2801) URINALYSIS W/ [id number] 23:08:00 Test Item Value Reference Range Interpretation Comments COLOR (BEAKER) (test code = Yellow 470) CLARITY (BEAKER) (test code = Clear 469) SPECIFIC GRAVITY UA (BEAKER) 1.030 1.001-1.035 (test code = 468) PH UA (BEAKER) (test code = 6.0 5.0-8.0 467) PROTEIN UA (BEAKER) (test code 30 mg/dL Negative A = 464) GLUCOSE UA (BEAKER) (test code Negative Negative = 365) KETONES UA (BEAKER) (test code Negative Negative = 371) BILIRUBIN UA (BEAKER) (test Negative Negative code = 462) BLOOD UA (BEAKER) (test code = Trace Negative A 461) NITRITE UA (BEAKER) (test code Negative Negative = 465) LEUKOCYTE ESTERASE UA (BEAKER) Negative Negative (test code = 466) UROBILINOGEN UA (BEAKER) (test 0.2 mg/dL 0.2-1.0 code = 463) RBC UA (BEAKER) (test code = 5 /HPF 519) WBC UA (BEAKER) (test code = 1 /HPF 520) MUCUS (BEAKER) (test code = Rare 1574) SOURCE(BEAKER) (test code = Urine, Voided 3465) Software Support Technician ID - [auto]Software Support Technician ID - techRAPID DRUG SCREEN, [id number] 20:17:00 Test Item Value Reference Range Interpretation Comments BARBITURATE URINE (BEAKER) (test Negative Negative code = 725) BENZODIAZEPINE SCREEN URINE (BEAKER) Positive Negative A (test code = 726) COCAINE (METAB.) SCREEN (BEAKER) Negative Negative (test code = 1164) METHADONE SCREEN (BEAKER) (test code Negative Negative = 1436) OPIATE SCREEN URINE (BEAKER) (test Positive Negative A code = 734) CANNABINOID SCREEN URINE (BEAKER) Negative Negative (test code = 727) AMPH/METHAMPH SCREEN (BEAKER) (test Negative Negative code = 1438) PHENCYCLIDINE SCREEN URINE (BEAKER) Negative Negative (test code = 608) PH UA (BEAKER) (test code = 467) 5.5 5.0-8.0 DRUG CUTOFF CONC.Cocaine 300 ng/mL Cannabinoid 50 ng/mLBenzodiazepine 200 ng/mLBarbiturate 200 ng/mLPhencyclidine 25 ng/mLOpiate 300 ng/mLMethadone 300 ng/mLAmphetamine/ 1000 ng/mL MethamphetamineThis assay provides an unconfirmed qualitative test result for the clinical management of patients in emergency situations. Chain of custody not maintained. Some zxki-psw-kgdnnmb medications, as well as adulterants, may cause inaccurate results. Clinical correlation should be applied. A more comprehensivedrug screen or confirmation of a detected drug may be performed upon request.Software Support Technician ID - KENNOperator ID - [auto][id number] 18:24:00 Test Item Value Reference Range Interpretation Comments MAGNESIUM (BEAKER) (test code = 1.8 mg/dL 1.6-2.6 627) Software Support Technician ID - KENNCOMPREHENSIVE METABOLIC [id number] 18:24:00 Test Item Value Reference Range Interpretation Comments TOTAL PROTEIN 7.2 gm/dL 6.0-8.3 (BEAKER) (test code = 770) ALBUMIN (BEAKER) 4.4 g/dL 3.5-5.0 (test code = 1145) ALKALINE PHOSPHATASE 121 U/L 40-150 (BEAKER) (test code = 346) BILIRUBIN TOTAL 0.3 mg/dL 0.2-1.2 (BEAKER) (test code = 377) SODIUM (BEAKER) (test 137 meq/L 136-145 code = 381) POTASSIUM (BEAKER) 3.7 meq/L 3.5-5.1 (test code = 379) CHLORIDE (BEAKER) 113 meq/L 98-107 H (test code = 382) CO2 (BEAKER) (test 16 meq/L 22-29 L code = 355) BLOOD UREA NITROGEN 18 mg/dL 7-21 (BEAKER) (test code = 354) CREATININE (BEAKER) 1.33 mg/dL 0.57-1.25 H (test code = 358) GLUCOSE RANDOM 88 mg/dL 70-105 (BEAKER) (test code = 652) CALCIUM (BEAKER) 8.6 mg/dL 8.4-10.2 (test code = 697) AST (SGOT) (BEAKER) 88 U/L 5-34 H (test code = 353) ALT (SGPT) (BEAKER) 58 U/L 6-55 H (test code = 347) EGFR (BEAKER) (test 64 mL/min/1.73 ESTIMA ENRICO GFR IS code = 1092) sq m NOT ACCURATE CREATININE CLEARANCE IN PREDICTING GLOMERULAR FILTRATION RATE . ESTIMATED GFR I S NOT APPLICABLE FOR DIALYSIS PATIEN TS. Software Support Technician ID - KENNURINALYSIS W/ REFLEX URINE [id number] 18:16:00 Test Item Value Reference Range Interpretation Comments COLOR (BEAKER) (test code = 470) Yellow CLARITY (BEAKER) (test code = 469) Clear SPECIFIC GRAVITY UA (BEAKER) (test 1.022 1.001-1.035 code = 468) PH UA (BEAKER) (test code = 467) 5.5 5.0-8.0 PROTEIN UA (BEAKER) (test code = 20 mg/dL Negative A 464) GLUCOSE UA (BEAKER) (test code = Negative Negative 365) KETONES UA (BEAKER) (test code = Negative Negative 371) BILIRUBIN UA (BEAKER) (test code = Negative Negative 462) BLOOD UA (BEAKER) (test code = 461) Negative Negative NITRITE UA (BEAKER) (test code = Negative Negative 465) LEUKOCYTE ESTERASE UA (BEAKER) Negative Negative (test code = 466) UROBILINOGEN UA (BEAKER) (test code 0.2 mg/dL 0.2-1.0 = 463) RBC UA (BEAKER) (test code = 519) 1 /HPF WBC UA (BEAKER) (test code = 520) < /HPF MUCUS (BEAKER) (test code = 1574) Rare SOURCE(BEAKER) (test code = 2795) Software Support Technician ID - [auto]Software Support Technician ID - techPROTHROMBIN TIME/[id number] 18:12:00 Test Item Value Reference Range Interpretation Comments PROTIME (BEAKER) (test code = 14.3 seconds 11.9-14.2 H 759) INR (BEAKER) (test code = 370) 1.1 <=5.9 Effective 03/11/2019: PT Reference Range ChangeNew: 11.9-14.2 Previous: 11.7- 14.7RECOMMENDED COUMADIN/WARFARIN INR THERAPY RANGESSTANDARD DOSE: 2.0-3.0 Includes: PROPHYLAXIS for venous thrombosis, systemic embolization; TREATMENT for venous thrombosis and/or pulmonary embolus.HIGH RISK: Target INR is2.5-3.5 for patients wiht mechanical heart valves.CBC W/PLT COUNT & AUTO [id number] 18:05:00 Test Item Value Reference Range Interpretation Comments WHITE BLOOD CELL COUNT (BEAKER) 8.6 K/ L 3.5-10.5 (test code = 775) RED BLOOD CELL COUNT (BEAKER) 4.26 M/ L 4.63-6.08 L (test code = 761) HEMOGLOBIN (BEAKER) (test code = 13.4 GM/DL 13.7-17.5 L 410) HEMATOCRIT (BEAKER) (test code = 39.7 % 40.1-51.0 L 411) MEAN CORPUSCULAR VOLUME (BEAKER) 93.2 fL 79.0-92.2 H (test code = 753) MEAN CORPUSCULAR HEMOGLOBIN 31.5 pg 25.7-32.2 (BEAKER) (test code = 751) MEAN CORPUSCULAR HEMOGLOBIN CONC 33.8 GM/DL 32.3-36.5 (BEAKER) (test code = 752) RED CELL DISTRIBUTION WIDTH 12.4 % 11.6-14.4 (BEAKER) (test code = 412) PLATELET COUNT (BEAKER) (test 269 K/CU MM 150-450 code = 756) MEAN PLATELET VOLUME (BEAKER) 9.8 fL 9.4-12.4 (test code = 754) NUCLEATED RED BLOOD CELLS 0 /100 WBC 0-0 (BEAKER) (test code = 413) NEUTROPHILS RELATIVE PERCENT 53 % (BEAKER) (test code = 429) LYMPHOCYTES RELATIVE PERCENT 36 % (BEAKER) (test code = 430) MONOCYTES RELATIVE PERCENT 8 % (BEAKER) (test code = 431) EOSINOPHILS RELATIVE PERCENT 2 % (BEAKER) (test code = 432) BASOPHILS RELATIVE PERCENT 1 % (BEAKER) (test code = 437) NEUTROPHILS ABSOLUTE COUNT 4.53 K/ L 1.78-5.38 (BEAKER) (test code = 670) LYMPHOCYTES ABSOLUTE COUNT 3.14 K/ L 1.32-3.57 (BEAKER) (test code = 414) MONOCYTES ABSOLUTE COUNT (BEAKER) 0.70 K/ L 0.30-0.82 (test code = 415) EOSINOPHILS ABSOLUTE COUNT 0.19 K/ L 0.04-0.54 (BEAKER) (test code = 416) BASOPHILS ABSOLUTE COUNT (BEAKER) 0.04 K/ L 0.01-0.08 (test code = 417) IMMATURE GRANULOCYTES-RELATIVE 0 % 0-1 PERCENT (BEAKER) (test code = 2801) CARDIAC [id number] 23:35:33864HI SoutheastCARDIAC [id number] 23:35:00<0.02MH SoutheastCHEM [id number] 23:35:0086 [facility] [id number] 23:35:0012MH [facility] [id number] 23:35:001.14 [facility] [id number] 23:35:61216TS [facility] [id number] 23:35:003.9MH [facility] [id number] 23:35:65642ML SoutheastCHEM PANEL 2019-08-04 23:35:0020 [facility] [id number] 23:35:008.9[facility] CHEM [id number] 23:35:007.8[facility] BUPAQ4786-06-05 23:35:003.5[facility] [id number] 23:35:0034[facility] [id number] 23:35:0030[facility] [id number] 23:35:54419OP SoutheastCHEM PANEL 2019-08-04 23:35:000.3M [facility]CHE[facility] [id number] 23:35:0088[facility] CHEM [id number] 23:35:0012.9[facility] [id number] 23:35:00 Test Item Value Reference Range Interpretation Comments B/C Ratio (test code = B/C Ratio) 11 1 6-25 [facility] [id number] [facility] [id number] 23:35:00 Test Item Value Reference Range Interpretation Comments A/G Ratio (test code = A/G Ratio) 0.8 1 0.7-1.6 [facility] [id number] 23:35:88604UTMcLean HospitalTjpnzmoniAPKDKTXYQM9194-44-61 23:35:0010.7[facility] HospitalRghdlujliIFATRZOZYA0850-31-04 23:35:003.87 [facility]HEMATOLOGY 2019-08-04 23:35:0012.7 GhseviyolMFPVAKHPWU8896-62-86 23:35:0037.4[facility] RFOCWEDMNV0347-21-37 23:35:0096.5[facility] HospitalOxzjjyhmnWZOIXRWMZI5766-23-20 23:35:00 Test Item Value Reference Range Interpretation Comments MCH (test code = MCH) 32.9 pg 27.0-31.0 XrnfmxxmhLBKSIUDLCR8675-22-14 23:35:0034.[address] [place], [place] [address]GdeohuqmsGVHWJVJPKR4755-50-03 23:35:0013.5[facility] HospitalHphupnnhoQZMZYSFXBB4991-75-35 23:35:98409FS [facility] 2019-08-04 23:35:007.9[facility] HospitalNvajhcdhiUYEBRFZHVY0993-13-39 23:35:0065.4[facility] DZWXYWCEOR3678-64-43 23:35:0023.5[facility] HospitalFpghwajlzYNLGGCGLAG2105-61-39 23:35:008.0[facility] HospitalIbgjwxtciARDVVPCJRH6127-43-85 23:35:001.8[facility] HospitalGiemfpzezXEJUWQGZAS7996-57-05 23:35:001.3[facility] HospitalPkmlrgirzIIAKXVQSPF6372-74-96 23:35:007.0[facility] 2019-08-04 23:35:002.5[facility] HospitalIvhrwuthcGSWWPECKZX4162-97-17 23:35:000.9[facility] WJCDLXIXBR8365-59-40 23:35:000.2MD[facility] HospitalMtzxnioowYSRCGBIIKT6999-50-39 23:35:000.[address] [place], [place] [address]BAC METABOLIC [id number] 07:05:00 Test Item Value Reference Range Interpretation Comments SODIUM (BEAKER) 138 meq/L 136-145 (test code = 381) POTASSIUM (BEAKER) 3.7 meq/L 3.5-5.1 (test code = 379) CHLORIDE (BEAKER) 106 meq/L 98-107 (test code = 382) CO2 (BEAKER) (test 25 meq/L 22-29 code = 355) BLOOD UREA NITROGEN 10 mg/dL 7-21 (BEAKER) (test code = 354) CREATININE (BEAKER) 0.83 mg/dL 0.57-1.25 (test code = 358) GLUCOSE RANDOM 88 mg/dL 70-105 (BEAKER) (test code = 652) CALCIUM (BEAKER) 9.1 mg/dL 8.4-10.2 (test code = 697) EGFR (BEAKER) (test 112 mL/min/1.73 ESTIM ATED GFR IS code = 1092) sq m NOT ACCURATE CREATININE CLEARANCE IN PREDICTING GLOMERULAR FILTRATION RATE . ESTIMATED GFR I S NOT APPLICABLE FOR DIALYSIS PATIEN TS. BASIC METABOLIC [id number] 06:45:00 Test Item Value Reference Range Interpretation Comments SODIUM (BEAKER) 139 meq/L 136-145 (test code = 381) POTASSIUM (BEAKER) 3.7 meq/L 3.5-5.1 (test code = 379) CHLORIDE (BEAKER) 108 meq/L 98-107 H (test code = 382) CO2 (BEAKER) (test 23 meq/L 22-29 code = 355) BLOOD UREA NITROGEN 10 mg/dL 7-21 (BEAKER) (test code = 354) CREATININE (BEAKER) 0.78 mg/dL 0.57-1.25 (test code = 358) GLUCOSE RANDOM 81 mg/dL 70-105 (BEAKER) (test code = 652) CALCIUM (BEAKER) 9.1 mg/dL 8.4-10.2 (test code = 697) EGFR (BEAKER) (test 120 mL/min/1.73 ESTIM ATED GFR IS code = 1092) sq m NOT ACCURATE CREATININE CLEARANCE IN PREDICTING GLOMERULAR FILTRATION RATE . ESTIMATED GFR I S NOT APPLICABLE FOR DIALYSIS PATIEN TS. VANCOMYCIN LEVEL, [id number] 21:11:00 Test Item Value Reference Range Interpretation Comments VANCOMYCIN TROUGH (BEAKER) (test 8.3 ug/mL 10.0-20.0 L code = 522) CBC W/PLT COUNT & AUTO [id number] 08:25:00 Test Item Value Reference Range Interpretation Comments WHITE BLOOD CELL COUNT (BEAKER) 7.5 K/ L 3.5-10.5 (test code = 775) RED BLOOD CELL COUNT (BEAKER) 3.86 M/ L 4.63-6.08 L (test code = 761) HEMOGLOBIN (BEAKER) (test code = 12.4 GM/DL 13.7-17.5 L 410) HEMATOCRIT (BEAKER) (test code = 36.2 % 40.1-51.0 L 411) MEAN CORPUSCULAR VOLUME (BEAKER) 93.8 fL 79.0-92.2 H (test code = 753) MEAN CORPUSCULAR HEMOGLOBIN 32.1 pg 25.7-32.2 (BEAKER) (test code = 751) MEAN CORPUSCULAR HEMOGLOBIN CONC 34.3 GM/DL 32.3-36.5 (BEAKER) (test code = 752) RED CELL DISTRIBUTION WIDTH 11.5 % 11.6-14.4 L (BEAKER) (test code = 412) PLATELET COUNT (BEAKER) (test 299 K/CU MM 150-450 code = 756) MEAN PLATELET VOLUME (BEAKER) 9.5 fL 9.4-12.4 (test code = 754) NUCLEATED RED BLOOD CELLS 0 /100 WBC 0-0 (BEAKER) (test code = 413) (CELLAVISION MANUAL DIFF)2019-03-24 08:25:00 Test Item Value Reference Range Interpretation Comments NEUTROPHILS - REL 61 % (CELLAVISION)(BEAKER) (test code = 2816) LYMPHOCYTES - REL 30 % (CELLAVISION)(BEAKER) (test code = 2817) MONOCYTES - REL 5 % (CELLAVISION)(BEAKER) (test code = 2818) EOSINOPHILS - REL 1 % (CELLAVISION)(BEAKER) (test code = 2819) BASOPHILS - REL 1 % (CELLAVISION)(BEAKER) (test code = 2820) ATYPICAL LYMPHOCYTES - REL 2 % 0-0 H (CELLAVISION)(BEAKER) (test code = 2829) NEUTROPHILS - ABS 4.58 K/ul 1.78-5.38 (CELLAVISION)(BEAKER) (test code = 2830) LYMPHOCYTES - ABS 2.25 K/ul 1.32-3.57 (CELLAVISION)(BEAKER) (test code = 2831) MONOCYTES - ABS 0.38 K/uL 0.30-0.82 (CELLAVISION)(BEAKER) (test code = 2832) EOSINOPHILS - ABS 0.08 K/uL 0.04-0.54 (CELLAVISION)(BEAKER) (test code = 2834) BASOPHILS - ABS 0.08 K/uL 0.01-0.08 (CELLAVISION)(BEAKER) (test code = 2835) ATYPICAL LYMPHOCYTES - ABS 0.15 K/uL 0.00-0.00 H (CELLAVISION)(BEAKER) (test code = 2858) TOTAL COUNTED (BEAKER) (test code = 100 1351) WBC MORPHOLOGY (BEAKER) (test code Normal = 487) PLT MORPHOLOGY (BEAKER) (test code Normal = 486) ANISOCYTOSIS (BEAKER) (test code = 1+ few 961) MICROCYTES (BEAKER) (test code = 1+ few 965) ARTIFACT (CELLAVISION)(BEAKER) Present (test code = 3432) PLATELET CONCENTRATION Adequate (CELLAVISION)(BEAKER) (test code = 3438) Received comment: User comments: Slide comments:BASIC METABOLIC [id number] 06:26:00 Test Item Value Reference Range Interpretation Comments SODIUM (BEAKER) 137 meq/L 136-145 (test code = 381) POTASSIUM (BEAKER) 3.3 meq/L 3.5-5.1 L (test code = 379) CHLORIDE (BEAKER) 104 meq/L 98-107 (test code = 382) CO2 (BEAKER) (test 25 meq/L 22-29 code = 355) BLOOD UREA NITROGEN 11 mg/dL 7-21 (BEAKER) (test code = 354) CREATININE (BEAKER) 0.85 mg/dL 0.57-1.25 (test code = 358) GLUCOSE RANDOM 92 mg/dL 70-105 (BEAKER) (test code = 652) CALCIUM (BEAKER) 8.9 mg/dL 8.4-10.2 (test code = 697) EGFR (BEAKER) (test 109 mL/min/1.73 ESTIM ATED GFR IS code = 1092) sq m NOT ACCURATE CREATININE CLEARANCE IN PREDICTING GLOMERULAR FILTRATION RATE . ESTIMATED GFR I S NOT APPLICABLE FOR DIALYSIS PATIEN TS. CBC W/PLT COUNT & AUTO [id number] 14:49:00 Test Item Value Reference Range Interpretation Comments WHITE BLOOD CELL COUNT (BEAKER) 6.8 K/ L 3.5-10.5 (test code = 775) RED BLOOD CELL COUNT (BEAKER) 4.06 M/ L 4.63-6.08 L (test code = 761) HEMOGLOBIN (BEAKER) (test code = 13.1 GM/DL 13.7-17.5 L 410) HEMATOCRIT (BEAKER) (test code = 37.7 % 40.1-51.0 L 411) MEAN CORPUSCULAR VOLUME (BEAKER) 92.9 fL 79.0-92.2 H (test code = 753) MEAN CORPUSCULAR HEMOGLOBIN 32.3 pg 25.7-32.2 H (BEAKER) (test code = 751) MEAN CORPUSCULAR HEMOGLOBIN CONC 34.7 GM/DL 32.3-36.5 (BEAKER) (test code = 752) RED CELL DISTRIBUTION WIDTH 11.8 % 11.6-14.4 (BEAKER) (test code = 412) PLATELET COUNT (BEAKER) (test 301 K/CU MM 150-450 code = 756) MEAN PLATELET VOLUME (BEAKER) 9.8 fL 9.4-12.4 (test code = 754) NUCLEATED RED BLOOD CELLS 0 /100 WBC 0-0 (BEAKER) (test code = 413) (CELLAVISION MANUAL DIFF)2019-03-23 14:49:00 Test Item Value Reference Range Interpretation Comments NEUTROPHILS - REL 55 % (CELLAVISION)(BEAKER) (test code = 2816) LYMPHOCYTES - REL 32 % (CELLAVISION)(BEAKER) (test code = 2817) MONOCYTES - REL 7 % (CELLAVISION)(BEAKER) (test code = 2818) EOSINOPHILS - REL 3 % (CELLAVISION)(BEAKER) (test code = 2819) BASOPHILS - REL 3 % (CELLAVISION)(BEAKER) (test code = 2820) NEUTROPHILS - ABS 3.74 K/ul 1.78-5.38 (CELLAVISION)(BEAKER) (test code = 2830) LYMPHOCYTES - ABS 2.18 K/ul 1.32-3.57 (CELLAVISION)(BEAKER) (test code = 2831) MONOCYTES - ABS 0.48 K/uL 0.30-0.82 (CELLAVISION)(BEAKER) (test code = 2832) EOSINOPHILS - ABS 0.20 K/uL 0.04-0.54 (CELLAVISION)(BEAKER) (test code = 2834) BASOPHILS - ABS 0.20 K/uL 0.01-0.08 H (CELLAVISION)(BEAKER) (test code = 2835) TOTAL COUNTED (BEAKER) (test code = 100 1351) RBC MORPHOLOGY (BEAKER) (test code Normal = 762) PLT MORPHOLOGY (BEAKER) (test code Normal = 486) SMUDGE CELLS (BEAKER) (test code = Present 1371) ARTIFACT (CELLAVISION)(BEAKER) Present (test code = 3432) PLATELET CONCENTRATION Adequate (CELLAVISION)(BEAKER) (test code = 3438) Received comment: User comments: Slide comments:BASIC METABOLIC [id number] 12:30:00 Test Item Value Reference Range Interpretation Comments SODIUM (BEAKER) 138 meq/L 136-145 (test code = 381) POTASSIUM (BEAKER) 4.0 meq/L 3.5-5.1 (test code = 379) CHLORIDE (BEAKER) 106 meq/L 98-107 (test code = 382) CO2 (BEAKER) (test 22 meq/L 22-29 code = 355) BLOOD UREA NITROGEN 12 mg/dL 7-21 (BEAKER) (test code = 354) CREATININE (BEAKER) 0.88 mg/dL 0.57-1.25 (test code = 358) GLUCOSE RANDOM 94 mg/dL 70-105 (BEAKER) (test code = 652) CALCIUM (BEAKER) 9.4 mg/dL 8.4-10.2 (test code = 697) EGFR (BEAKER) (test 105 mL/min/1.73 ESTIM ATED GFR IS code = 1092) sq m NOT ACCURATE CREATININE CLEARANCE IN PREDICTING GLOMERULAR FILTRATION RATE . ESTIMATED GFR I S NOT APPLICABLE FOR DIALYSIS PATINICKO TS. RAPID DRUG SCREEN, [id number] 21:01:00 Test Item Value Reference Range Interpretation Comments BARBITURATE URINE (BEAKER) (test Positive Negative A code = 725) BENZODIAZEPINE SCREEN URINE (BEAKER) Negative Negative (test code = 726) COCAINE (METAB.) SCREEN (BEAKER) Negative Negative (test code = 1164) METHADONE SCREEN (BEAKER) (test code Negative Negative = 1436) OPIATE SCREEN URINE (BEAKER) (test Positive Negative A code = 734) CANNABINOID SCREEN URINE (BEAKER) Negative Negative (test code = 727) AMPH/METHAMPH SCREEN (BEAKER) (test Negative Negative code = 1438) PHENCYCLIDINE SCREEN URINE (BEAKER) Negative Negative (test code = 608) DRUG CUTOFF CONC.Cocaine 300 ng/mL Cannabinoid 50 ng/mLBenzodiazepine 200 ng/mLBarbiturate 200 ng/mLPhencyclidine 25 ng/mLOpiate 300 ng/mLMethadone 300 ng/mLAmphetamine/ 1000 ng/mL MethamphetamineThis assay provides an unconfirmed qualitative test result for the clinical management of patients in emergency situations. Chain of custody not maintained. Some xjlx-ytd-rscrcqn medications, as well as adulterants, may cause inaccurate results. Clinical correlation should be applied. A more comprehensivedrug screen or confirmation of a detected drug may be performed upon request.URINALYSIS W/ REFLEX URINE [id number] 20:48:00 Test Item Value Reference Range Interpretation Comments COLOR (BEAKER) (test code = 470) Yellow CLARITY (BEAKER) (test code = 469) Hazy SPECIFIC GRAVITY UA (BEAKER) (test 1.034 1.001-1.035 code = 468) PH UA (BEAKER) (test code = 467) 6.0 5.0-8.0 PROTEIN UA (BEAKER) (test code = 20 mg/dL Negative A 464) GLUCOSE UA (BEAKER) (test code = Negative Negative 365) KETONES UA (BEAKER) (test code = Negative Negative 371) BILIRUBIN UA (BEAKER) (test code = Negative Negative 462) BLOOD UA (BEAKER) (test code = Negative Negative 461) NITRITE UA (BEAKER) (test code = Negative Negative 465) LEUKOCYTE ESTERASE UA (BEAKER) Negative Negative (test code = 466) UROBILINOGEN UA (BEAKER) (test 0.2 mg/dL 0.2-1.0 code = 463) RBC UA (BEAKER) (test code = 519) 0 /HPF WBC UA (BEAKER) (test code = 520) 1 /HPF BACTERIA (BEAKER) (test code = Occasional 517) MUCUS (BEAKER) (test code = 1574) Occasional SQUAMOUS EPITHELIAL (BEAKER) (test < /HPF code = 516) GRANULAR CASTS (BEAKER) (test code 2 /LPF = 515) YEAST (BEAKER) (test code = 1585) Occasional SOURCE(BEAKER) (test code = 2795) MR, BRAIN, [id number] 15:37:00FINAL REPORT MRI Brain with and without [...] a Chiari I hindbrain configuration. Signed: Kenny Christiansen MDReport Verified Date/Time: 03/22/2019 15:37:41 Reading Location: [facility] B1 C013V Neuro Reading Room Electronicallysigned by: KENNY CHRISTIANSEN M.D. on 03/22/2019 03:37 PMHIV-1 ANTIGEN WITH HIV-1/2 [id number] 14:15:00 Test Item Value Reference Range Interpretation Comments HIV-1 ANTIGEN WITH HIV 1\\T\\2 Nonreactive Nonreactive ANTIBODY (2) (BEAKER) (test code = 2586) BASIC METABOLIC [id number] 13:55:00 Test Item Value Reference Range Interpretation Comments SODIUM (BEAKER) 140 meq/L 136-145 (test code = 381) POTASSIUM (BEAKER) 3.5 meq/L 3.5-5.1 (test code = 379) CHLORIDE (BEAKER) 105 meq/L 98-107 (test code = 382) CO2 (BEAKER) (test 23 meq/L 22-29 code = 355) BLOOD UREA NITROGEN 12 mg/dL 7-21 (BEAKER) (test code = 354) CREATININE (BEAKER) 1.04 mg/dL 0.57-1.25 (test code = 358) GLUCOSE RANDOM 109 mg/dL 70-105 H (BEAKER) (test code = 652) CALCIUM (BEAKER) 9.9 mg/dL 8.4-10.2 (test code = 697) EGFR (BEAKER) (test 86 mL/min/1.73 ESTIMA ENRICO GFR IS code = 1092) sq m NOT ACCURATE CREATININE CLEARANCE IN PREDICTING GLOMERULAR FILTRATION RATE . ESTIMATED GFR I S NOT APPLICABLE FOR DIALYSIS PATIEN TS. CBC W/PLT COUNT & AUTO [id number] 13:35:00 Test Item Value Reference Range Interpretation Comments WHITE BLOOD CELL COUNT (BEAKER) 9.8 K/ L 3.5-10.5 (test code = 775) RED BLOOD CELL COUNT (BEAKER) 4.27 M/ L 4.63-6.08 L (test code = 761) HEMOGLOBIN (BEAKER) (test code = 13.8 GM/DL 13.7-17.5 410) HEMATOCRIT (BEAKER) (test code = 39.8 % 40.1-51.0 L 411) MEAN CORPUSCULAR VOLUME (BEAKER) 93.2 fL 79.0-92.2 H (test code = 753) MEAN CORPUSCULAR HEMOGLOBIN 32.3 pg 25.7-32.2 H (BEAKER) (test code = 751) MEAN CORPUSCULAR HEMOGLOBIN CONC 34.7 GM/DL 32.3-36.5 (BEAKER) (test code = 752) RED CELL DISTRIBUTION WIDTH 11.6 % 11.6-14.4 (BEAKER) (test code = 412) PLATELET COUNT (BEAKER) (test 300 K/CU MM 150-450 code = 756) MEAN PLATELET VOLUME (BEAKER) 9.7 fL 9.4-12.4 (test code = 754) NUCLEATED RED BLOOD CELLS 0 /100 WBC 0-0 (BEAKER) (test code = 413) NEUTROPHILS RELATIVE PERCENT 64 % (BEAKER) (test code = 429) LYMPHOCYTES RELATIVE PERCENT 30 % (BEAKER) (test code = 430) MONOCYTES RELATIVE PERCENT 5 % (BEAKER) (test code = 431) EOSINOPHILS RELATIVE PERCENT 1 % (BEAKER) (test code = 432) BASOPHILS RELATIVE PERCENT 0 % (BEAKER) (test code = 437) NEUTROPHILS ABSOLUTE COUNT 6.28 K/ L 1.78-5.38 H (BEAKER) (test code = 670) LYMPHOCYTES ABSOLUTE COUNT 2.91 K/ L 1.32-3.57 (BEAKER) (test code = 414) MONOCYTES ABSOLUTE COUNT (BEAKER) 0.50 K/ L 0.30-0.82 (test code = 415) EOSINOPHILS ABSOLUTE COUNT 0.07 K/ L 0.04-0.54 (BEAKER) (test code = 416) BASOPHILS ABSOLUTE COUNT (BEAKER) 0.04 K/ L 0.01-0.08 (test code = 417) IMMATURE GRANULOCYTES-RELATIVE 0 % 0-1 PERCENT (BEAKER) (test code = 2801) HEPATIC FUNCTION [id number] 18:35:00 Test Item Value Reference Range Interpretation Comments TOTAL PROTEIN (BEAKER) (test code = 7.8 gm/dL 6.0-8.3 770) ALBUMIN (BEAKER) (test code = 1145) 4.5 g/dL 3.5-5.0 BILIRUBIN TOTAL (BEAKER) (test code 0.3 mg/dL 0.2-1.2 = 377) BILIRUBIN DIRECT (BEAKER) (test 0.2 mg/dL 0.1-0.5 code = 706) ALKALINE PHOSPHATASE (BEAKER) (test 86 U/L 40-150 code = 346) AST (SGOT) (BEAKER) (test code = 20 U/L 5-34 353) ALT (SGPT) (BEAKER) (test code = 34 U/L 6-55 347) BASIC METABOLIC [id number] 18:34:00 Test Item Value Reference Range Interpretation Comments SODIUM (BEAKER) 136 meq/L 136-145 (test code = 381) POTASSIUM (BEAKER) 3.8 meq/L 3.5-5.1 (test code = 379) CHLORIDE (BEAKER) 103 meq/L 98-107 (test code = 382) CO2 (BEAKER) (test 22 meq/L 22-29 code = 355) BLOOD UREA NITROGEN 11 mg/dL 7-21 (BEAKER) (test code = 354) CREATININE (BEAKER) 1.11 mg/dL 0.57-1.25 (test code = 358) GLUCOSE RANDOM 134 mg/dL 70-105 H (BEAKER) (test code = 652) CALCIUM (BEAKER) 9.6 mg/dL 8.4-10.2 (test code = 697) EGFR (BEAKER) (test 80 mL/min/1.73 ESTIMA ENRICO GFR IS code = 1092) sq m NOT ACCURATE CREATININE CLEARANCE IN PREDICTING GLOMERULAR FILTRATION RATE . ESTIMATED GFR I S NOT APPLICABLE FOR DIALYSIS PATIEN TS. CBC W/PLT COUNT & AUTO [id number] 18:28:00 Test Item Value Reference Range Interpretation Comments WHITE BLOOD CELL COUNT (BEAKER) 9.7 K/ L 3.5-10.5 (test code = 775) RED BLOOD CELL COUNT (BEAKER) 3.88 M/ L 4.63-6.08 L (test code = 761) HEMOGLOBIN (BEAKER) (test code = 12.6 GM/DL 13.7-17.5 L 410) HEMATOCRIT (BEAKER) (test code = 35.9 % 40.1-51.0 L 411) MEAN CORPUSCULAR VOLUME (BEAKER) 92.5 fL 79.0-92.2 H (test code = 753) MEAN CORPUSCULAR HEMOGLOBIN 32.5 pg 25.7-32.2 H (BEAKER) (test code = 751) MEAN CORPUSCULAR HEMOGLOBIN CONC 35.1 GM/DL 32.3-36.5 (BEAKER) (test code = 752) RED CELL DISTRIBUTION WIDTH 11.5 % 11.6-14.4 L (BEAKER) (test code = 412) PLATELET COUNT (BEAKER) (test 250 K/CU MM 150-450 code = 756) MEAN PLATELET VOLUME (BEAKER) 9.8 fL 9.4-12.4 (test code = 754) NUCLEATED RED BLOOD CELLS 0 /100 WBC 0-0 (BEAKER) (test code = 413) NEUTROPHILS RELATIVE PERCENT 90 % (BEAKER) (test code = 429) LYMPHOCYTES RELATIVE PERCENT 9 % (BEAKER) (test code = 430) MONOCYTES RELATIVE PERCENT 1 % (BEAKER) (test code = 431) EOSINOPHILS RELATIVE PERCENT 0 % (BEAKER) (test code = 432) BASOPHILS RELATIVE PERCENT 0 % (BEAKER) (test code = 437) NEUTROPHILS ABSOLUTE COUNT 8.71 K/ L 1.78-5.38 H (BEAKER) (test code = 670) LYMPHOCYTES ABSOLUTE COUNT 0.86 K/ L 1.32-3.57 L (BEAKER) (test code = 414) MONOCYTES ABSOLUTE COUNT (BEAKER) 0.12 K/ L 0.30-0.82 L (test code = 415) EOSINOPHILS ABSOLUTE COUNT 0.00 K/ L 0.04-0.54 L (BEAKER) (test code = 416) BASOPHILS ABSOLUTE COUNT (BEAKER) 0.01 K/ L 0.01-0.08 (test code = 417) IMMATURE GRANULOCYTES-RELATIVE 0 % 0-1 PERCENT (BEAKER) (test code = 2801) RAD, CHEST, 1 VIEW, NON [id number] 16:57:00Reason for exam:->r/o pneumoniaShould this be performed at the bedside?->YesFINAL REPORT Portable chest. MEDICAL HISTORY: Rule out pneumonia. COMPARISON S TUDY: None available. FINDINGS: The cardiac size is unremarkable. There is blunting of the right causing again with adjacent atelectasis or consolidation. No pneumothorax is seen. The regional skeletonis unremarkable. IMPRESSION: Right costophrenic angle blunting. Signed: Mamadou Becerril MDReport Verified Date/Time: 03/21/2019 16:57:47 Reading Location: [facility] C013X Ortho Consult Reading Room CARDIAC [id number] 01:36:00<0.02[facility] [place] 2019-03-17 01:36:0015.0 RlzwrvarISNJWJYNOOYH4068-47-94 01:36:0022MH [place] BSCEERNYFRNP6338-61-77 01:36:44566YH NuguhszxJVBTUEZPSMQD1978-36-85 01:36:001.26 TaddtaxrQYLENLIAYFVO1559-88-02 01:36:73213KS KwvkpfxeOPGGTTJLDEWC0503-29-20 01:36:004.0 PetlhtgfYBSNXLTOVTYF9974-46-95 01:36:45458NV [place]ELECTROLYTES 2019-03-17 01:36:0014MH CueclowyMLMESRUYXOUJ9416-96-82 01:36:009.7[facility] [place] ZOCCQSVXNGLN5333-35-99 01:36:0078MH KfcgsqunXZZDUBXTOO2212-37-13 01:36:0077.2MH EunadbjvJOHMBYHEEQ7247-30-81 01:36:000.2MH PvzjycyuHGWGQGPNKF2906-92-06 01:36:00 15.0MH PsapcqjuRPNACLVYVQ9872-56-58 01:36:007.3MH YenwoyygEBFRKCFMGZ3126-39-87 01:36:000.8MH ZkbfuxahVNCLUMPEKX9660-11-11 01:36:001.6MH [place]landHEMATOLOGY 2019-03-17 01:36:000.3MH FusnrqgeLEZLZWYVMP9562-74-86 01:36:008.0[facility] [place] HZGSYMUSOG8099-73-69 01:36:0010.4MH ZdkzvcthBTXBXOPVZG7316-10-61 01:36:78570QF StuqulxdATZDTKGXMP2227-70-92 01:36:0012.5MH DhcallpaDDCOVCIKDD2111-73-04 01:36:008.3MH LcwugjqwPYZWDWDMAU0906-05-65 01:36:004.[address] 01:[address] [address] [facility] CenterYbadhyziMCXQFDJNLQ7179-95-72 01:36:0045.3[facility] MLZIFLCJDT8078-83-50 01:36:0094.4[facility] CenterHflhxwrvPLLBCBBEXI0845-94-63 01:36:00 Test Item Value Reference Range Interpretation Comments MCH (test code = MCH) 33.3 pg 27.0-31.0 [facility] CenterUkiouiaqXCMCJHQFSH8564-33-50 01:36:0035.[address] [place], [place] [address]CHEM PCVUE4170-08-64 11:10:000.8[facility] XEUYU5732-98-09 07:32:043.7[facility] HospitalCHE[facility] IAMXW6939-78-15 07:32:041.[address] [place], [place] [address]CHEM PANEL 2014-08-31 07:32:0413[facility] HospitalCHE[facility] SSRLW6910-74-86 07:32:0412.[address] [place], [place] [address]CHEM TZJRL6316-43-34 07:32:0421[facility] HospitalCHE[facility] DTXZR6608-78-55 07:32:0477[facility] HospitalCHE[facility] JZJMQ1066-45-21 07:32:0422 [facility]CHE[facility] INLKF7397-11-63 07:32:040.[address] [place] [address] CHEM NELWP7798-41-23 07:32:044.0[facility] HospitalCHE[facility] RMFMC2503-62-58 07:32:047.7[facility] HospitalCHE[facility] YMFCX1184-83-66 07:32:048.9[facility] HospitalCHE[facility] BFZKM0942-07-02 07:32:11022YFMethodist Children's HospitalCHEM PANEL 2014-08-31 07:32:0489[facility] HospitalCHE[facility] MMOUM5055-87-00 07:32:0417[facility] HospitalCHE[facility] KRFXM9124-96-40 07:32:041.[address] [place], [place] [address]CHEM QEBOC4078-10-32 07:32:043.[address] [place], [place] [address]CHEM YXGBG3188-93-71 07:32:04 102[facility] HospitalCHE[facility] PVHSE7181-01-58 07:32:0427[facility] CHEM GUOYA1366-02-54 07:32:0477[facility] HospitalHvpfuaCJTULYGAOG3613-34-05 07:32:040.0[facility] HospitalGxodfaUAPFFBXRNR5949-14-05 07:32:0410.0[facility] HospitalQcrzveQHDEKZHANA6766-96-02 07:32:044.0[facility] HospitalHEMATOLOGY 2014-08-31 07:32:043.9[facility] HospitalQsstadDGNVDVPKMC2063-99-84 07:32:042.4[facility] HospitalMfdcqtFCIPORLFUH8717-38-89 07:32:040.7[facility] OHVFEAPRGQ4128-52-08 07:32:04 Test Item Value Reference Range Interpretation Comments Tot Cell Ct (test code = Tot Cell Ct) 100 1 [facility] HospitalLjjibrQTLSHPJSAN9300-39-96 07:32:041+ *ABN*(08/31/14 1:32 AM)[facility] HospitalSxaqssMBNRMVYHEU6631-23-63 07:32:04Normal (08/31/14 1:32 AM)[facility] HospitalBdrlohCUYCIAACCO0792-59-51 07:32:040.0[facility] SUSFMYGXQO9981-56-09 07:32:0433.0[facility] HospitalOgmyryORXDYZKSDK9576-37-43 07:32:040.3M[facility] CenterAuioflNWPQZRFDJZ8347-94-46 07:32:0453.0[facility] HospitalKsmdpaIWJACHBGDV3877-57-78 07:32:044.46[facility] HospitalHEMATOLOGY 2014-08-31 07:32:047.4[facility] HospitalHnmyocGBCRAWFRJQ8438-70-29 07:32:0412.[address] [place], [place] [address]LptpqiWHUYYOYTXV3935-47-30 07:32:048.5[facility] YNDPXJOPED8430-47-15 07:32:04733QRMethodist Children's HospitalEdumzmBUNMNCRFMM7600-07-75 07:32:0491.5[facility] HospitalCjpangEBJCGZMVKN7116-38-05 07:32:0432.8[facility] HospitalFcqqjiDOTZHGFBGJ2421-61-01 07:32:04 Test Item Value Reference Range Interpretation Comments MCH (test code = MCH) 30.0 pg 27.0-31.0 [facility] HospitalZtbtifLFXLPEVIIX7868-96-47 07:32:0440.8[facility] FSAUWMQMXN4371-71-14 07:32:0413.4[facility] HospitalCHEM NRJOS0898-08-80 08:20:0057[facility] HospitalCHEM JKVDS7066-05-40 08:20:07033OGMethod[facility]'s HospitalCHEM XXFJL4679-63-64 08:20:000.5[facility] HospitalCHEM PANEL 2014-06-04 08:20:000.6M[facility] CenterCHEM PTQYX7035-18-82 08:20:000.1M[facility] CenterCHEM DOOUG7924-54-38 08:20:0034[facility] HospitalCHEM XWYHA7044-58-67 08:20:0041[facility] HospitalCHEM QCNLV5934-27-15 08:20:0086 [facility] HospitalCHE[facility] RLBQY6020-35-46 08:20:000.9[facility] CHEM VMSCP6734-42-25 08:20:003.4[facility] HospitalCHEM DUMLC1041-23-96 08:20:003.[address] [place], [place] [address]CHEM BIPEX7033-30-54 08:20:007.0[facility] HospitalCHEM ICQRT7045-69-22 08:20:004.7[facility] HospitalCHEM PANEL 2014-06-04 08:20:001.4[facility] HospitalCHEM OBULD2525-94-74 08:20:15065VMMethodist Children's HospitalCHEM PHTVZ4288-22-12 08:20:009.[address] [place], [place] [address]CHEM SLAPI0126-20-65 08:20:18640PFMethodist Children's HospitalCHEM LXZXX3266-22-67 08:20:008 [facility] HospitalCHEM YULSV6991-79-79 08:20:000.9[facility] CHEM URLXQ0214-44-61 08:20:004.[address] [place], [place] [address]CHEM SFAUD6077-71-95 08:20:50021OQMethodist Children's HospitalCHEM JDNXV0691-64-87 08:20:0025[facility] HospitalCHEM SFIDW2478-83-27 08:20:0084[facility] HospitalCHEM PANEL 2014-06-04 08:20:0016.[address] [place], [place] [address]FhtgdbBGDCSWZBEE0461-41-67 08:20:001.[address] [place], [place] [address]DibgjcIDHIZHJWNJ8419-00-65 08:20:000.[address] [place] [address] SKJAJESMQR2834-37-89 08:20:005.8[facility] HospitalJsteltTXHMMCWHVV8860-66-95 08:20:001.8[facility] HospitalUwyhmvVQDBECYIUD2555-93-45 08:20:0020.1M[facility] CenterIrldkzTEUCETJKRA4702-91-26 08:20:0012.0[facility] HospitalHEMATOLOGY 2014-06-04 08:20:0065.2M[facility] CenterTrwwegPWPKOXTNRC8299-09-04 08:20:000.2M[facility] CenterYcxlhfPYBAZNDBWR5956-39-22 08:20:002.5[facility] FPFOYWMWLL7855-87-41 08:20:007.8[facility] HospitalGhptcsDAAOLLQAFB0340-60-30 08:20:0034.7[facility] HospitalCbbhsgTTNWODARHR1258-30-92 08:20:0092.8[facility] HospitalRmotigTRXOYZVMDI9800-20-43 08:20:51174CGMethodist [facility]'s HospitalHEMATOLOGY 2014-06-04 08:20:0034.4[facility] HospitalCpjizrUOZLEJOSXY8054-53-14 08:20:0014.0 [facility] HospitalSdwqabRITVAQKJGV3059-66-56 08:20:00 Test Item Value Reference Range Interpretation Comments MCH (test code = MCH) 31.9 pg 27.0-31.0 [facility] HospitalMejbtrHKBDIKYNNV5788-08-74 08:20:0011.9[facility] FCQMJOHLNF8609-17-67 08:20:003.73[facility] HospitalHiwxcjJWQJSGZORV7444-07-59 08:20:008.9[facility] HospitalCHEM OCWEE1487-18-67 09:04:0076[facility] HospitalCHEM MOGED4029-51-26 09:04:001.6M[facility] CenterCHEM PANEL 2014-06-03 09:04:000.3M[facility] CenterCHEM YLUTE4774-54-51 09:04:003.4[facility] HospitalCHEM KKLML8925-08-27 09:04:001.0[facility] HospitalCHEM IJZCR8431-26-79 09:04:000.1M[facility] CenterCHEM KJMLW6412-93-01 09:04:00 33[facility] HospitalCHEM JCXLX8426-77-91 09:04:0040[facility] CHEM WBHDO4915-64-41 09:04:000.4[facility] HospitalCHEM EQCPX3314-55-17 09:04:0075[facility] HospitalCHEM LVNIM6532-60-33 09:04:006.7[facility] HospitalCHEM XYDWN1654-39-93 09:04:003.3M[facility] CenterCHEM PANEL 2014-06-03 09:04:003.5[facility] HospitalBiiefuQRFVBXZOKGRJ2393-24-57 09:04:0012.8 [facility] HospitalKpdaonKPAEVVYVMPEF4454-04-30 09:04:0095[facility] YZURFSKSLXMG7811-56-52 09:04:008.7[facility] HospitalWxhsfvJUDHUYKTLNQP3244-21-81 09:04:22805MWMethodist Children's HospitalCxesgzUFKBNRDSXEDS8381-60-92 09:04:003.8[facility] HospitalAxhtvnZHPEPTAIIMZY6513-42-46 09:04:0027[facility] RNPWAPDFAREC1840-16-85 09:04:006[facility] HospitalGkytfkOZHQTHFLAKDG1933-69-81 09:04:65496YTMethodist Children's HospitalYjhplvVXFARNCLANZE6362-43-21 09:04:[address] [place], [place] [address]NxbdwyDEQGDXAHGDEU3586-58-54 09:04:0089[facility] HospitalHEMATOLOGY 2014-06-03 09:04:003.54[facility] HospitalZmtjxqWFSTDMCBTK7852-38-44 09:04:009.4[facility] HospitalFplhbtJRRVHMWRKK7191-09-56 09:04:0011[address] [place] [address] DCRVUUKDWF1647-48-09 09:04:46329BQBig [facility] Medical CenterFzgfiqYDTQGOVNGQ1193-02-44 09:04:[address] [place], [place] [address]MqbchrSIONDKGSVU1810-77-12 09:04:007.7[facility] HospitalWujxjjLSFJCVQWVQ3076-08-95 09:04:[address] [place], [place] [address]HEMATOLOGY 2014-06-03 09:04:0092.8[facility] HospitalLjmjscVGCPROHHBG1897-40-48 09:04:0032.9 [facility] HospitalJuqfmzYLABCGXXZT4040-78-99 09:04:00 Test Item Value Reference Range Interpretation Comments MCH (test code = MCH) 31.7 pg 27.0-31.0 [facility] HospitalHcifijDGGYRQBDCQ5489-44-25 09:04:[address] [place] [address] YIKFCTTSUI6771-82-46 09:04:000.2M[facility] CenterJnampeKGIUCEEKRE6021-70-57 09:04:000.2M[facility] CenterUlflqzQERNTIWQUA3303-84-69 09:04:006.5[facility] HospitalAtehckARXPJGZIVE4992-77-31 09:04:[address] [place], [place] [address]HEMATOLOGY 2014-06-03 09:04:[address] [place], [place] [address]RwkjtfGFRMXMBHFU0156-54-18 09:04:[address] [place], [place] [address]OqiwbaRAPDRNHNWN1819-55-38 09:04:[address] [place] [address] ZNGXRMZQOT0119-72-67 09:04:[address] [place], [place] [address]CHEM LTKWE8869-77-66 08:36:007.[address] [place], [place] [address]CHEM WPITV0972-43-39 08:36:0043[facility] HospitalCHEM EUSSZ9714-96-04 08:36:004.0[facility] HospitalCHEM PANEL 2014-06-02 08:36:001.[address] [place], [place] [address]CHEM GPOYK2965-41-77 08:36:[address] [place], [place] [address]CHEM YCGQE3289-90-70 08:36:0086[facility] HospitalCHEM ABKWM4081-75-26 08:36:000.5[facility] HospitalCHEM LVKIS2180-75-88 08:36:00 49[facility] HospitalCHEM FCSEP1022-30-14 08:36:000.[address] [place] [address] CHEM ODEGK7321-43-69 08:36:000.4[facility] HospitalCHEM FZLWF0869-78-01 08:36:59461URMethod[facility] Children's HospitalCHEM RGFWA9317-45-83 08:36:0077[facility] HospitalCHEM VCHQG9811-53-24 08:36:004.[address] [place], [place] [address]CHEM PANEL 2014-06-02 08:36:52922IHMethodist Children's HospitalCHEM FJSLN7943-01-97 08:36:009.0[facility] HospitalCHEM ETHDG5858-56-48 08:36:0022Methodist [facility] HospitalCHEM RPNTK6959-01-77 08:36:0011[facility] HospitalCHEM CUUEW2196-53-15 08:36:00 138[facility] HospitalCHEM TUTZB0815-59-60 08:36:001.[address] [place], [place] [address]CHEM XYGHP4655-92-98 08:36:0099[facility] HospitalCHEM JXIWP3249-89-31 08:36:0015.3[facility] TkziiuQLWQDMKURS2277-97-52 08:36:000.5[facility] HospitalRdnqshINOYAEGTXQ0149-55-77 08:36:000.2M[facility] CenterHEMATOLOGY 2014-06-02 08:36:0010.5[facility] HospitalVqrjelVAMIXAVJWM6897-84-40 08:36:000.1M[facility] CenterCiyjdlRHVUDFFXUY6973-86-82 08:36:0013.9[facility] GOLWPCEMAZ7415-25-66 08:36:009.0[facility] HospitalZwzewkXIRAQKDMQW9185-58-33 08:36:0076.4[facility] HospitalUrgampTJAUAHTLYQ1649-58-21 08:36:001.9[facility] HospitalAtxuifCXZGFDSXWS8116-98-57 08:36:001.[address] [place], [place] [address]HEMATOLOGY 2014-06-02 08:36:008.0[facility] HospitalEamkwhBZEYPJYOYP0374-51-06 08:36:0014.0[facility] HospitalArbasyCLJUBLLZHL2718-00-67 08:36:09739QW[facility] SKPOOHBNFR1654-70-95 08:36:0033.7[facility] HospitalLuxttyLRFKFFCQOY9509-09-70 08:36:[address]94.[address] [place], [place] [address]JlovufFLSOKFDGVA6627-85-82 08:36:00 Test Item Value Reference Range Interpretation Comments MCH (test code = MCH) 31.8 pg 27.0-31.0 [facility] HospitalFjxcnkAGIZRBNQFR7281-54-50 08:36:[address] [place] [address] XZFTHLDKGY1984-26-14 08:36:0012.[address] [place], [place] [address]HonmvwBILYLCGLFV2967-92-35 08:36:0013.8[facility] HospitalYuxaqfAIRSZJLDOX2115-81-41 08:36:003.86[facility] HospitalJusocbSFYBGAWADG0654-01-32 12:45:001.04[facility] HospitalHEMATOLOGY 2014-06-01 12:45:00 Test Item Value Reference Range Interpretation Comments PT (test code = PT) 13.5 s 12.0-14.7 [facility] HospitalBrpwnbDNWEEWEMQR1759-14-98 12:45:00 Test Item Value Reference Range Interpretation Comments PTT (test code = PTT) 25.6 s 22.9-35.8 [facility]BL[facility] CMLYKGR8066-36-91 11:20:47Product available (06/01/14 6:20 AM)[facility] ZORWVTB8499-88-91 11:20:47 Product available (06/01/14 6:20 AM)[facility] B[facility] RESULTS 2014-06-01 11:20:00Negative (06/01/14 6:20 AM)[facility] HospitalCHEM PANEL 2014-06-01 11:14:0068[facility] HospitalCHEM KMYGZ1329-18-47 09:40:77163PPMethodist Children's HospitalCHEM COSKH6782-75-48 09:40:0089[facility] HospitalCHEM MWREY3699-68-07 09:40:000.2M[facility] CenterCHEM NULGN1111-87-98 09:40:[address] [place], [place] [address]CHEM QUWFZ1060-43-76 09:40:0025[facility] CHEM XCIKI0798-29-69 09:40:003.4[facility] HospitalCHEM PXGCA1264-67-58 09:40:0014[facility] HospitalCHEM EZAPC3160-93-11 09:40:[address] [place], [place] [address]CHEM EEPDP6971-47-18 09:40:003.7[facility] HospitalCHEM PANEL 2014-05-13 09:40:000.9[facility] HospitalCHEM YBBFM7436-68-71 09:40:[address] [place], [place] [address]RvwrdnMFZEESANVWOG8723-18-07 09:40:0010.2M[facility] KEMBOLYSXMFJ1592-95-21 09:40:46790KLMethodist Children's HospitalEdvcpwGSTVZZXUKFYD2822-18-79 09:40:0026[facility] HospitalZdarilRBBRMPAGSDNQ6447-64-20 09:40:008.2M[facility] CenterTgjssqMXSLRSENVQOW1455-40-48 09:40:001.0[facility] AUQRXIODUXSS3951-25-24 09:40:34576YLMethodist Children's HospitalZzcxpmSCLFPPBKVNUP6141-26-20 09:40:46200LTMethodist Children's HospitalPfullkAVQGLEPHKQKU9344-83-85 09:40:009[facility] HospitalBhmfydDJKLGTKPVLGI4671-10-53 09:40:17963JG[facility] EEUXADBPUESV9703-55-07 09:40:003.2M[facility] CenterLnisjcYSLFSRCULV0121-40-40 09:40:94687WXMethodist Children's HospitalMdnwniXYRMEZEETL3360-04-14 09:40:0013.8[facility] HospitalUndgdcVHFXAKDZOB1584-89-16 09:40:008.0[facility] HospitalHEMATOLOGY 2014-05-13 09:40:003.85[facility] HospitalXheixeHCWGPVYLMJ2907-83-30 09:40:0010.7 [facility] HospitalUrsvtuDCZPMLLDAH9275-17-28 09:40:0035.2M[facility] TCNBSOWWSZ2098-57-68 09:40:[address] [place], [place] [address]VvewdeSFPYXMKKBG6496-88-25 09:40:0035.0[facility] HospitalXxfumxNQIGTMYQXH5346-26-22 09:40:00 Test Item Value Reference Range Interpretation Comments MCH (test code = MCH) 32.0 pg 27.0-31.0 [facility] HospitalJbqdfmHHDVJTCRVZ7646-30-96 09:40:0091.4[facility] XDHWLXPIRG2530-10-09 09:40:0057.7[facility] HospitalQrveliVQBNJNFDFS7914-61-16 09:40:0031.0[facility] HospitalBqlmwbCDOOFGGAND6596-91-55 09:40:[address] [place], [place] [address]YocrnaISPJYDOXMT2945-55-90 09:40:[address] [place], [place] [address]HEMATOLOGY 2014-05-13 09:40:001.[address] [place], [place] [address]BytnphSIJKXPKQGS5905-18-41 09:40:007.8[facility] HospitalTigdjtGRTCROQVTG4644-29-32 09:40:006.[address] [place] [address] PGBGNLPKIS1911-25-34 09:40:002.2M[facility] CenterMeafilWNLBCEPYZR6160-15-59 09:40:000.8[facility] HospitalHyouqxTPTBOULWMB5267-88-13 09:40:003[address] [place], [place] [address]CHEM OJBVY1004-73-25 08:32:001.8[facility] HospitalCHEM PANEL 2014-05-06 08:32:22848ABMethodist Children's HospitalCHEM MRFBS2951-77-05 08:32:000.9[facility] HospitalCHEM UGECL5409-23-51 08:32:72741AEMethodist Children's HospitalCHEM AFVBM9930-88-51 08:32:0093[facility] HospitalCHEM VEGNE7209-20-33 08:32:0013 [facility] HospitalCHEM PLYUH0236-64-15 08:32:[address] [place] [address] CHEM YFSSK4313-53-07 08:32:23371CJMethodist Children's HospitalCHEM TALUH3401-28-10 08:32:0021[facility] HospitalCHEM JJLJB5893-85-24 08:32:004.[address] [place], [place] [address]CHEM PDDAX0235-40-15 08:32:[address] [place], [place] [address]CHEM PANEL 2014-05-06 08:32:004.7[facility] HospitalTbjjdeYAARONGNIP4856-30-69 08:32:003.93[facility] HospitalChtwtxOUYFXYVDUP9461-98-07 08:32:007.[address] [place] [address] QQDBMAWSEC7670-16-32 08:32:0012.4[facility] HospitalCopujyFRKAEQMFZJ5527-76-06 08:32:0034.0[facility] HospitalKehniwABSZQYNRNA1328-79-43 08:32:32226JFMethodist Children's HospitalQromehBDBTTFFLKG7751-73-28 08:32:007.5[facility] HospitalHEMATOLOGY 2014-05-06 08:32:0014.[address] [place], [place] [address]JnxebiUMIDUHOXVK6960-63-32 08:32:0036.5 [facility] HospitalDaioarIEJONRXRVT1738-40-64 08:32:00 Test Item Value Reference Range Interpretation Comments MCH (test code = MCH) 31.6 pg 27.0-31.0 [facility] HospitalJplyvrNCHYQUQJCQ1514-11-83 08:32:0092.9[facility] LDGEZWWNDJ8695-52-91 08:32:[address] [place], [place] [address]WqocjoPWWRTUAXHV8947-61-46 08:32:003.8[facility] HospitalDckvzsCMLFXZMXOR0904-17-61 08:32:000.4[facility] HospitalLkjeetUNKXAOOIDZ4098-92-52 08:32:007.8[facility] HospitalHEMATOLOGY 2014-05-06 08:32:0038.4[facility] HospitalQiepdaJBIZICRMMG7868-32-67 08:32:002.9[facility] HospitalVffjftXPAJPHFCSI7030-56-38 08:32:000.6M[facility] OOXIEJMMRN8385-04-78 08:32:003.8[facility] HospitalNczzwqEVHRNNQFHQ5579-32-52 08:32:000.3M[facility] CenterCHEM DXZIO1940-13-24 00:43:41810AEMethodist Children's HospitalCHEM RKWQY5269-88-77 00:43:39419JSMethodist Children's HospitalDRUG SCREEN 2014-05-05 19:00:58Negative *NA*(05/05/14 2:00 PM)[facility] HospitalDR[facility] GZOJVP3380-32-18 19:00:58Negative *NA*(05/05/14 2:00 PM)[facility] DRUG IUZKDV0436-54-35 19:00:58Negative *NA*(05/05/14 2:00 PM)[facility] HospitalDR[facility] QPWJMP8213-20-96 19:00:58Negative *NA*(05/05/14 2:00 PM)[facility] HospitalDR[facility] FAFGOY5186-94-63 19:00:58Negative *NA*(05/05/14 2:00 PM)[facility] HospitalDR[facility] UOYVJQ0762-95-51 19:00:58Positive *ABN*(05/05/14 2:00 PM)[facility] HospitalDR[facility] YIUGGH9120-93-60 19:00:58Negative *NA*(05/05/14 2:00 PM)[facility] HospitalDR[facility] OMQOCV6848-58-50 19:00:58Negative *NA*(05/05/14 2:00 PM)[facility] HospitalDR[facility] VXEUWP9319-28-32 19:00:58 Positive *ABN*(05/05/14 2:00 PM)[facility] HospitalDRUG HMCCKU8230-39-66 19:00:58See Note 5(05/05/14 2:00 PM)[facility] HospitalCHEM SJTKM6148-75-18 07:33:002.3M[facility] CenterCHEM XBQRU2238-64-14 07:33:000.[address] [place], [place] [address]CHEM BNIMT9282-00-13 07:33:88972ZCMethodist Children's HospitalCHEM PANEL 2014-05-05 07:33:0022[facility] HospitalCHEM UZJQF2370-27-50 07:33:0031[facility] HospitalCHEM XCNHP3510-99-02 07:33:009.4[facility] HospitalCHEM YDFUF0530-00-02 07:33:004.3M[facility] CenterCHEM LFSJH4251-46-98 07:33:00 3.1M[facility] CenterCHEM VXJZF8835-21-74 07:33:73179UTMethodist Children's HospitalCHEM DCIZR6345-10-88 07:33:0023[facility] HospitalCHEM NQJCL6252-28-97 07:33:009.4[facility] HospitalCHEM XCAVB9800-15-24 07:33:[address] [place], [place] [address]CHEM WCWDX3511-87-17 07:33:0015[facility] HospitalCHEM PANEL 2014-05-05 07:33:20836PZMethod[facility]'s HospitalCHEM BRCOW2748-39-98 07:33:57241BEMethodist Children's HospitalCHEM XWTOO0109-76-61 07:33:0095[facility] HospitalCHEM OLMPQ0616-13-76 07:33:[address] [place], [place] [address]CHEM DSQTH4133-85-20 07:33:00 0.8[facility] HospitalCHEM KHZYG4458-04-96 07:33:[address] [place], [place] [address]CHEM YPQMD4007-69-20 07:33:0014[facility] HospitalRsjvmqJKMUTZQYOM2206-62-98 07:33:0012.9[facility] HospitalWkkizhYGWTQJKHHV4811-37-62 07:33:004.19[facility] HospitalPzyaqeGMNVKSTNZO7591-47-84 07:33:0090.2M[facility] CenterHEMATOLOGY 2014-05-05 07:33:0012.9[facility] HospitalCdumkuFIKLUCRYHK4683-16-69 07:33:0037.8 [facility] HospitalVlyhnfSIIMOPYBWS6553-22-94 07:33:0012.9[facility] QKMGRFGMWC4695-89-42 07:33:[address] [place], [place] [address]WyardzWHAFZOPPXL0003-46-04 07:33:00 Test Item Value Reference Range Interpretation Comments MCH (test code = MCH) 30.9 pg 27.0-31.0 [facility] HospitalJxbqlgFJYTYVMYUD6933-09-26 07:33:12397JIMethodist [facility]'s Hospital KCKOOODSBB1437-37-84 07:33:007.6M[facility] CenterCimcffLAGSDGSBWX8819-07-57 07:33:00Normal (05/05/14 2:33 AM)[facility] HospitalWfqnjwUNVPHGJBGN0387-07-02 07:33:001+ *ABN*(05/05/14 2:33 AM)[facility] HospitalXvtvksAKWPLNVECE7113-78-46 07:33:0066.3M[facility] CenterNwjgspRFJCHSCQMF9621-93-61 07:33:0026.2M[facility] CenterCjxsnfFJLKZSPXEU1893-92-33 07:33:000.0[facility] HospitalHEMATOLOGY 2014-05-05 07:33:006.8[facility] HospitalKnwleeKLDILITVFM5135-40-20 07:33:000.7[facility] HospitalEdosytUSWXNEHYZY0867-47-89 07:33:000.9[facility] RLFKSSGDUJ0185-19-28 07:33:008.5[facility] HospitalUgeiymMADYUYBJQX6151-08-86 07:33:003.4[facility] HospitalJsodnhZPSQBZZEOC9227-98-96 07:33:000.1M[facility] CenterPftfdaVXKVJBBIYU5807-74-27 07:33:000.0[facility] HospitalBLOOD BANK QAQIHEI5052-40-05 12:10:00Negative (04/21/14 7:10 AM)[facility] HospitalCHEM OAFRT8866-01-74 10:47:001.[address] [place], [place] [address]CHEM UFFIG7414-68-58 10:47:00 4.0[facility] HospitalCHEM DSBGS4631-18-62 10:47:000.9[facility] HospitalCHEM EUGLI0580-37-95 10:47:003.9[facility] HospitalCHEM PANEL 2014-02-08 10:47:0013[facility] HospitalCHEM GUDRA9245-83-72 10:47:0015.6M[facility] CenterCHEM KZJFF5253-29-11 10:47:000.[address] [place], [place] [address]CHEM UHGBV0770-33-83 10:47:0096[facility] HospitalCHEM PSCSN2684-10-81 10:47:0014 [facility] HospitalCHEM MQNYE8526-80-55 10:47:0022[facility] CHEM BLHWU4353-61-13 10:47:003.4[facility] HospitalCHEM GEEZR7368-28-86 10:47:007.3M[facility] CenterCHEM QOZNT6384-32-32 10:47:008.7[facility] HospitalCHEM UMZGR7530-67-54 10:47:0012[facility] HospitalCHEM PANEL 2014-02-08 10:47:0091[facility] HospitalCHEM KVMUG4904-84-31 10:47:0026[facility] HospitalCHEM YWXJW9850-57-42 10:47:44484ADMethodist Children's HospitalCHEM SGPZA8999-76-87 10:47:003.[address] [place], [place] [address]CHEM ATPPW6714-32-65 10:47:00 141[facility] HospitalCHEM PAGOM4388-46-15 10:47:000.9[facility] HospitalCHEM AODPH2658-56-25 10:47:25234OIMethodist Children's HospitalELECTROLYTES 2014-02-08 10:47:0015.[address] [place], [place] [address]QtjtgzXERAUXYBBOUP0793-04-31 10:47:008.7 [facility] HospitalUdlgjfPKKVIPPWPSLV9598-24-79 10:47:0026[facility] KNQHNIVAVTKK5950-49-00 10:47:47792ZQMethodist [facility]'s HospitalQruaaqIFQMENKJPIQY9781-13-[address]:47:[address] [place], [place] [address]LeznlkXXUOAYVQKUCS1975-89-06 10:47:39778OBMethodist Children's HospitalTbjvahJXRTCPJNBSBF4067-16-31 10:47:000.9[facility] HAKELCHFGQMF9489-19-74 10:47:0012[facility] HospitalNnwdnlKBEFOXGSVVHF2750-65-67 10:47:0091[facility] HospitalEclxgcLJZYHSTHOBGN5328-18-37 10:47:26112YNMethodist Children's HospitalYqreuwXWLZRBCOQT3438-20-39 10:47:003.5[facility] HospitalHEMATOLOGY 2014-02-08 10:47:000.[address] [place], [place] [address]LeebzsTNSHGKLDVB4532-50-77 10:47:006.0[facility] HospitalDsjvtlGFCFADBIDQ5976-45-22 10:47:002.0[facility] WODEBDAYFS6564-56-45 10:47:001.0[facility] HospitalHemkvnUMSAKYRNVP0147-16-62 10:47:[address] [place], [place] [address]BtcqvhPAMEYXWLVW2862-65-82 10:47:0063.9[facility] HospitalEoduwyTCWCHGNWME1601-19-96 10:47:0010.8[facility]AT[facility] 2014-02-08 10:47:0021.5[facility] HospitalZrgdwxVEWTOCPMTF4301-37-34 10:47:008.2M[facility] CenterYmbgyvWCYWKINGTN8751-37-44 10:47:0012.3M[facility] FEIXEAVGFW5661-05-74 10:47:77396QRCHRISTUS [facility] Sulphur SpringsATOLOGY2014-04-28 10:47:0011.[address] [place], [place] [address]EkorrlNBWIARDJDE1431-33-28 10:47:003.76[facility] HospitalSmljdvRHBTUZVEUU0444-90-43 10:47:0033.[address] [place], [place] [address]HEMATOLOGY 2014-02-08 10:47:00 Test Item Value Reference Range Interpretation Comments MCH (test code = MCH) 30.9 pg 27.0-31.0 [facility]ATOLOGY2014-04-28 10:47:009.4[facility] TALOTRCZVZ2997-47-49 10:47:0093.0[facility] SpringsATOLOGY2014-04-28 10:47:0034.9[facility] HospitalURINE AND VZVAI7905-85-97 08:30:24Negative (02/07/14 3:30 AM)[facility] HospitalUR[facility] AND NVPSK8444-04-09 08:30:24 Test Item Value Reference Range Interpretation Comments UA pH (test code = UA pH) 6.5 1 5.0-8.0 [facility] HospitalUR[facility] AND UBLGL9525-07-68 08:30:24Negative *NA*(02/07/14 3:30 AM)[facility] HospitalUR[facility] KZHZE2875-65-73 08:30:24Negative (02/07/14 3:30 AM)[facility]UR[facility] ECKRF3237-75-00 08:30:24 Negative (02/07/14 3:30 AM)[facility]UR[facility] EOPOL1233-39-96 08:30:24Negative *NA*(02/07/14 3:30 AM)[facility] HospitalUR[facility] AND STOOL 2014-02-07 08:30:240.2M[facility] CenterURINE AND LTVIE7940-49-96 08:30:24 Negative (02/07/14 3:30 AM)[facility]UR[facility] WJARD1858-53-28 08:30:24Negative (02/07/14 3:30 AM)[facility]UR[facility] STOOL 2014-02-07 08:30:24Clear (02/07/14 3:30 AM)[facility]UR[facility] STOOL 2014-02-07 08:30:24 Test Item Value Reference Range Interpretation Comments UA Spec Grav (test code = UA Spec 1.037 1 Grav) [facility]UR[facility] QOUPT1292-86-68 08:30:24Yellow *NA*(02/07/14 3:30 AM)[facility] HospitalUR[facility] BVRAE7297-23-29 08:30:24Performed (02/07/14 3:30 AM)[facility] HospitalCHEM THXGL0193-66-74 08:30:0073[facility] HospitalCHEM FFJPL8071-31-44 08:30:000.7[facility] HospitalCHEM PANEL 2014-02-07 08:30:000.5[facility] HospitalCHEM WTCKU4735-13-16 08:30:000.1M[facility] CenterCHEM YJYVL3902-52-45 08:30:0096[facility] HospitalCHEM HMJPA8573-14-36 08:30:0026[facility] HospitalCHEM FZRGB3785-56-69 08:30:0019 [facility] HospitalCHEM ZXDJV0023-45-08 08:30:007.8[facility] CHEM YZLFI1264-80-59 08:30:003.5[facility] HospitalCHEM RCFQD6267-54-82 08:30:000.4[facility] HospitalCHEM KUGFS2746-41-22 08:30:004.3M[facility] CenterCHEM QWOQW1671-19-72 08:30:000.8[facility] HospitalCHEM PANEL 2014-02-07 08:30:77948BKMethodist Children's HospitalCHEM GRWFJ3730-38-21 08:30:0011[facility] HospitalCHEM QQCIU0490-93-70 08:30:001.0[facility] HospitalCHEM NWGKW4972-07-27 08:30:64267GKMethodist Children's HospitalCHEM UNPOT7897-20-87 08:30:00 8.8[facility] HospitalCHEM TRFHV6170-30-57 08:30:0026[facility] CHEM ZXNNE5149-17-85 08:30:80368DYMethodist Children's HospitalCHEM TVAVB0412-07-06 08:30:003.5[facility] HospitalCHEM KQFFR4641-19-61 08:30:47763LSMethodist Children's HospitalCHEM VEHOU1270-38-36 08:30:0013.5[facility] HospitalHEMATOLOGY 2014-02-07 08:30:000.0[facility] HospitalPeehfbLKPIKEHGIZ1006-80-75 08:30:00Normal (02/07/14 3:30 AM)[facility] HospitalZffybtJLAQQFIAAR3398-28-28 08:30:001+ *ABN*(02/07/14 3:30 AM)[facility] HospitalYgkgicIJXCEAZXGE2405-26-17 08:30:001.2M[facility] CenterDqmxjxTVABYOVYZI1693-33-44 08:30:0078.0[facility] ALUYPICZMC6162-14-13 08:30:000.2M[facility] CenterRtzbbaNBYVFGVXMF1852-93-97 08:30:000.0[facility] HospitalDahyayHAGPXENSTF7453-91-94 08:30:008.0[facility] HospitalGqoowbLWSSBVQSNZ2478-56-43 08:30:0013.0[facility] HospitalHEMATOLOGY 2014-02-07 08:30:001.0[facility] HospitalQalmagPKRZUKEHVR8086-06-06 08:30:002.0[facility] HospitalSdgzeuRNHIIIQTKA1919-52-38 08:30:0011.8[facility] BFPAXARRFA0749-41-81 08:30:003.77[facility] HospitalRemxjtROSSUDHYRK9370-01-[address] 08:30:[address] [place], [place] [address]UuisrdNEXDVCHBXI7337-12-12 08:30:[address] [place], [place] [address]GcptqqTZSQSRLPJP7800-44-90 08:30:[address] [place], [place] [address]HEMATOLOGY 2014-02-07 08:30:00 Test Item Value Reference Range Interpretation Comments MCH (test code = MCH) 31.4 pg 27.0-31.0 [facility] HospitalIcxohzZIOKWVJASV0752-30-40 08:30:0091.7[facility] NXTYUKRKDG8396-20-89 08:30:0034.5[facility] HospitalCtwmrzIPXMTEDRVO7711-63-94 08:30:0011.8[facility] HospitalCbqlnrGKAYPVLQGV8883-80-67 08:30:008.1M[facility] CenterXbxbqqWBASVYFSEJ4942-93-80 08:30:10546MAMethodist Children's HospitalIMMUNOLOGY 2014-02-07 08:30:00Negative (02/07/14 3:30 AM)[facility] HospitalCHEM PANEL 2014-01-18 20:10:0035[facility] HospitalCHEM JXAAB1594-46-23 20:10:0039[facility] HospitalCHEM TOAWX6846-86-82 20:10:004.6M[facility] CenterCHEM XZZBK5457-95-48 20:10:000.9[facility] HospitalCHEM MYDJR8663-16-74 20:10:00 141[facility] HospitalCHEM BHEBB4414-79-83 20:10:000[facility] CHEM MJNJL6861-40-87 20:10:000.3M[facility] CenterCHEM HHHLN3009-10-18 20:10:008.7[facility] HospitalCHEM SQBIW5652-31-12 20:10:000.3M[facility] CenterCHEM GOFNU1849-76-33 20:10:[address] [place], [place] [address]CHEM PANEL 2014-01-18 20:10:0095[facility] HospitalCHEM AUGEI0801-18-97 20:10:009.[address] [place], [place] [address]CHEM TMLBW0101-20-70 20:10:0031[facility] HospitalCHEM RYYGY6461-92-58 20:10:004.0[facility] HospitalCHEM VBKRT7547-04-96 20:10:00 102[facility] HospitalCHEM WKXYN7317-57-95 20:10:45392CRMethodist Children's HospitalCHEM YTRYW1021-73-30 20:10:[address] [place], [place] [address]CHEM PANEL 2014-01-18 20:10:0081[facility] HospitalCHEM AMCIQ8566-28-88 20:10:0014[facility] HospitalCHEM QIQBX6765-87-23 20:10:0011.0[facility] WTBDBYROEJ7500-01-97 20:10:[address] [place], [place] [address]QuerlsBZYWIPBLHU6338-34-78 20:10:[address] [place], [place] [address]NtybefLIBGHIERKM1792-57-69 20:10:002.2M[facility] CenterXvdnttOWNCRQJQXD8236-89-24 20:10:000.9[facility] HospitalHEMATOLOGY 2014-01-18 20:10:000.4[facility] HospitalDjpynvBFQYMGLIFY7645-74-54 20:10:0028.5[facility] HospitalNjlkrrZVONJLDOCK6727-21-52 20:10:0011.[address] [place] [address] RYVAQPHPXA4474-10-01 20:10:0053.7[facility] HospitalSkceesDPNRABKTIS3055-20-73 20:10:004.2M[facility] CenterBqmreeFOZZEVFFGE5822-99-71 20:10:001.5[facility] HospitalLmshhiBRJQCRBFDT0772-72-13 20:10:001.06[facility] HospitalHE[facility]OLOGY 2014-01-18 20:10:00 Test Item Value Reference Range Interpretation Comments PT (test code = PT) 13.7 s 12.0-14.7 [facility] HospitalRokdilKRCRXEMHRF6446-52-57 20:10:00 Test Item Value Reference Range Interpretation Comments PTT (test code = PTT) 32.9 s 22.9-35.8 [facility] HospitalLnlpodDIEYRJEHVX8335-67-70 20:10:58991VT[facility] ZUCZVUYECY9532-64-69 20:10:008.[address] [place], [place] [address]EwgmhqQUFBPJFGDJ1021-46-90 20:10:00 Test Item Value Reference Range Interpretation Comments MCH (test code = MCH) 32.1 pg 27.0-31.0 [facility] HospitalUxgukeAXWLHDEQRA2491-85-23 20:10:0034.9[facility] YMREUOEMAU5929-50-21 20:10:0011.5[facility] HospitalDiztssQACQVBDJMD8985-99-19 20:10:007.8[facility] HospitalBqjkznJDVYFDHBCA4858-37-33 20:10:004.15[facility] HospitalKytzmlOPXEQGYVQU1893-22-04 20:10:0013.[address] [place], [place] [address]HEMATOLOGY 2014-01-18 20:10:0038.[address] [place], [place] [address]WrokdhZEWTZWPMSS3526-91-44 20:10:0092.2 [facility] HospitalCHEM CZIIU0219-09-74 15:08:001.[address] [place] [address] CHEM YDKEB8305-83-24 15:08:07747UQMethodist Children's HospitalCHEM BFGZZ7273-32-87 15:08:51672IBMethodist Children's HospitalCHEM IARSF0958-71-92 15:08:009.0[facility] HospitalCHEM EVFSL5779-38-93 15:08:0029[facility] HospitalCHEM PANEL 2014-01-01 15:08:004.0[facility] HospitalCHEM UWDHZ6115-39-53 15:08:76715HHMethodist Children's HospitalCHEM ABDUZ6137-18-63 15:08:001.0[facility] HospitalCHEM FOVOW3531-20-28 15:08:005[facility] HospitalCHEM LYWCA4203-96-82 15:08:0092 [facility] HospitalCHEM ILFGD6826-63-61 15:08:0012.0[facility] CHEM EASEG3495-97-97 15:08:004.[address] [place], [place] [address]GbbtryWFFESERWAV6733-75-99 15:08:0044.4[facility] HospitalPcbbbwRHISEUSQXO1385-63-37 15:08:0038.7[facility] HospitalOlnwhyVLVXXLHCVY9989-89-78 15:08:0011.4[facility] HospitalHEMATOLOGY 2014-01-01 15:08:000.5[facility] HospitalDythfnLAZPTKMBOP4498-57-33 15:08:005.0[facility] HospitalCgthsvWXIJTLLHUI5982-08-48 15:08:002.[address] [place] [address] ICATOQMWZF0218-30-20 15:08:002.0[facility] HospitalRlascoJGOPOIOIDA1140-47-07 15:08:000.[address] [place], [place] [address]BezntpQWGWNGZION2272-80-51 15:08:000.[address] [place], [place] [address]TmrjjgXJQZGDYRKU6470-76-91 15:08:00 Test Item Value Reference Range Interpretation Comments MCH (test code = MCH) 31.3 pg 27.0-31.0 [facility] HospitalUixgbqUWSLGXQHTR6165-01-07 15:08:0033.4[facility] DQFKAADFVI2765-91-37 15:08:75246KKMethodist Children's HospitalHzomzmSIEPUVFYGE0783-31-65 15:08:0038.68 [address] [address] [place], [place] [id number]2 15:08:0093.7[facility] HospitalOwlajmUUFEIEVRZI6479-89-03 15:08:0013.0[facility] HospitalHEMATOLOGY 2014-01-01 15:08:007.9[facility] HospitalMoxvraTQNJEBODZO4442-95-16 15:08:005.1M[facility] CenterKwfdvsSWTZQSINSK7297-67-74 15:08:004.12[facility] WTMNRKUZXR8209-57-95 15:08:0012.9[facility] HospitalOkdfchFZZPZFGKO9455-95-45 10:20:0095[facility] HospitalHzfdkfCZCWRJQJC8076-99-94 10:20:0024[facility] HospitalMcxcbuSULSSBEKD9888-20-80 10:20:91237XEMethodist Children's HospitalMijizgSPGDJNUKG5881-98-88 10:20:004.2M[facility] CenterHmxxvjUPBZKIJSH4206-43-85 10:20:20414NOMethodist Children's HospitalYtbaxmWHLJUOMQO8807-43-01 10:20:008.9[facility] HospitalCHEMISTRY 2013-08-24 10:20:001.[address] [place], [place] [address]UuhdgiKLXVYBDGI8523-55-44 10:20:0023[facility] HospitalCvmvkuWCIZJOZYM3231-13-63 10:20:0088[facility] UKSJMIGRB9496-12-13 10:20:0015.2M[facility] CenterGtnoydSQCGOMTDAW9148-63-44 10:20:[address] [place], [place] [address]ZkbbxcQMKVOEQGNF7325-67-77 10:20:000.8[facility] HospitalRyzfotBUFKRPVBPT3784-40-06 10:20:000.5[facility] HospitalHEMATOLOGY 2013-08-24 10:20:006.5[facility] HospitalLisqsfTJYKTCITYR9609-31-29 10:20:000.9[facility] HospitalTmenlmRWQVYBBRPK2137-27-93 10:20:003.8[facility] UERPUKSTAG4442-54-99 10:20:002.4[facility] GgqvpyRLRRPJGQXU9316-33-48 10:20:0050.4[facility] ZblqqjPTDKGCRJPS3821-21-44 10:20:0010.3M[facility] CenterAolypaPWNQLZHFOG6167-04-17 10:20:0031.9[facility] HospitalHEMATOLOGY 2013-08-24 10:20:0011.8[facility] HospitalJcbzoxOPTZLVJCHP3113-58-10 10:20:003.80 [facility] HospitalIifigcMDVALDIESC4425-86-39 10:20:0034.[address] [place] [id number] IDYYTOKMLR0186-72-62 10:20:63153KDMethodist Children's HospitalFjvgdlJUKSHPGNCB7909-89-07 10:20:[address]91.[address] [place], [place] [address]PdwguhXJIDGZGJFX2521-52-40 10:20:00 Test Item Value Reference Range Interpretation Comments MCH (test code = MCH) 31.0 pg 27.0-31.0 N [facility] HospitalWczrsgQGGVHGQJCQ1771-99-11 10:20:0034.0[facility] GDUQTTSDOP7941-39-00 10:20:0014[address] [place], [place] [id number]4-63 10:20:008.[address] [place], [place] [address]BkcjczYKSHYDZZOC3765-86-07 10:20:007.[address] [place], [place] [id number]-22 13:31:287352IJMethodist [facility]'s HospitalCHEMISTRY 2013-08-23 13:31:1513.[address] [place], [place] [address]SigoueVESSKITBU4776-28-52 08:17:0086[facility] HospitalOgabvcSKQJBYEOZ2585-73-35 08:17:38363CX[facility] USALULWGV1588-41-30 08:17:001.[address] [place], [place] [address]EonezyHTYRKRLCV8082-57-96 08:17:0019[facility] HospitalEegxrlKGPVLCEHO6928-38-24 08:17:0087[facility] HospitalAazrhzFKXOLNFHK4980-79-14 08:17:0027[facility] HospitalVzrzrgKMSGNTAFR4677-28-03 08:17:96131WGMethodist Children's HospitalJfxbsjQMLUBUKBQ0056-49-65 08:17:[address] [place], [place] [address]NvbmvyXQDHLUWJY7701-37-65 08:17:003.[address] [place], [place] [address]CHEMISTRY 2013-08-23 08:17:0012.9[facility] HospitalLtwltiAMVTWNVDYJ6671-96-22 08:17:00 Test Item Value Reference Range Interpretation Comments MCH (test code = MCH) 31.3 pg 27.0-31.0 H [facility] HospitalEuulioCGAULFMHGL9184-33-85 08:17:0090.8[facility] LYXLIOQVQE5830-96-23 08:17:0032.8[facility] HospitalUvnavxWIBTOLTKHV0932-55-07 08:17:0034.5[facility] HospitalZwmmwpMYPQVUGBNS3290-99-09 08:17:[address] [place], [place] [address]HsubuoFPMNAGFGXR8323-10-37 08:17:[address] [place], [place] [address]HEMATOLOGY 2013-08-23 08:17:09563UN[facility] PbgebaZTUZDLFOPV9236-29-09 08:17:0014.7[facility] GqbfczNBZSBSRLGR8778-74-92 08:17:006.9[facility] SJCNCJYRWP3931-42-38 08:17:003.61[facility] HospitalJzjtodJTOUEDNTTP9894-55-05 08:17:000.1[facility] JziefeIZFZTNMIEM9628-51-94 08:17:003.8[facility] EqpfkrBPKOJXOIPF9276-63-11 08:17:000.4[facility] CenterHEMATOLOGY 2013-08-23 08:17:002.0[facility] QmdktcDMEHBVUNDM6667-65-81 08:17:000.7[facility] HospitalAztyjvTVLXTYKIQR6977-08-48 08:17:0054.5[facility] BVRSYXUNCJ3341-49-26 08:17:009.9[facility] HospitalSoetvhQYXTRUVROJ2249-18-52 08:17:[address] [place], [place] [address]LsgxobJMMPCQNIYR7786-00-18 08:17:005.7[facility] XxwykdYRAAHERFSL4946-36-40 08:17:000.8[facility] CenterCHEMISTRY 2013-08-22 11:55:0086[facility] HospitalRgtmnsVNTXXKTSY8515-23-05 11:55:0027[facility] HospitalSmucitQUIJYVJDN0097-65-28 11:55:008.4[facility] XLPXPSATH3210-14-13 11:55:23702RZMethod[facility]'s HospitalVlxaagCGAVMYDKU1366-54-91 11:55:0093[facility] HospitalSbqsqkYCQCEHBKN0506-63-01 11:55:0016[facility] HospitalTavgblDFKOYWOTT6511-61-80 11:55:91687CSMethodist [facility]'s HospitalUtwpffAGDMOPTIT0956-38-90 11:55:003.8[facility] HospitalDlegvpHYFIYSFZS3567-12-96 11:55:[address] [place], [place] [address]FcdpycYYWAHKEWK7152-33-79 11:55:0011.8[facility] HospitalHEMATOLOGY 2013-08-22 11:55:0014.[address] [place], [place] [address]ScqbpgOZKJQVNIYG5304-83-95 11:55:57502JCMethodist Children's HospitalXfcujoCMZLOKISIR2697-58-85 11:55:008.[address] [place] [address] MLCMWXUJGR1160-92-75 11:55:0090.8[facility] HgrysoBOBWLUWOSN0103-31-89 11:55:00 Test Item Value Reference Range Interpretation Comments MCH (test code = MCH) 30.0 pg 27.0-31.0 N [facility] HospitalNejpvgUFWFPQVAVK3558-92-63 11:55:0033.0[facility] VDMFIMDZJG8724-06-14 11:55:0011.4[facility] AqxpbiMSXPJJGLLZ8684-91-98 11:55:0034.6[facility] UjnxmrMJCAWYKUDW0710-05-06 11:55:003.81[facility] HospitalBsbkvaHYKXLSAIYK6427-70-04 11:55:006.2M[facility] CenterHEMATOLOGY 2013-08-22 11:55:000.4[facility] HospitalCpjdomZOUHYEDRBN0556-98-78 11:55:001.6M[facility] CenterYglalaQPMYMWGBBS3534-36-44 11:55:000.9[facility] QFDRQWVWNJ0447-28-18 11:55:0025.4[facility] HospitalRmgbovGLBBDVZQHW0430-30-03 11:55:0053.7[facility] HospitalXtfwmpELXUMGZKTV2203-21-61 11:55:000.6M[facility] CenterFfkdasANFZZORCCZ5360-92-98 11:55:006.4[facility] HospitalHEMATOLOGY 2013-08-22 11:55:003.3M[facility] CenterBwlkgiZSXBLWFQLN2975-25-44 11:55:0013.9[facility] HospitalKowgcwREUJDGSJW6259-65-17 02:33:900446XP[facility] WUEJCUUDN3365-17-37 02:33:2212.4[facility] HospitalLonxuyCXYTAEZZY1755-91-42 15:09:192143POMethodist Children's HospitalXphbwpSRBFUUARR8542-98-25 15:09:387.8[facility] HospitalFhznrkPISPHJFHJ6548-06-00 20:56:450.7[facility] HospitalCHEMISTRY 2013-08-17 20:56:464794PHMethodist Children's HospitalUprfgsPPVBINKGC8976-26-43 12:20:2737.0[facility] HospitalSsmnbuHHACLZMCF0214-05-27 12:20:2737[facility] JGIQSPPJX2385-25-40 12:20:2744[facility] HospitalTualziRPKDOEMTU6462-87-30 12:20:2767.9[facility] HospitalXubcuyQWWWVHMPW3067-83-88 12:20:27-1M[facility] CenterPhjoysFLZSCOUYO4645-61-28 12:20:2725[facility] HospitalCHEMCAR[facility] 2013-08-17 12:20:277.36[facility]AT[facility]2013-11-04 12:20:26 Test Item Value Reference Range Interpretation Comments aPTT (test code = aPTT) 29.7 s 22.9-35.8 N [facility]AT[facility]Y2013-11-04 12:20:26 Test Item Value Reference Range Interpretation Comments PROTIME (test code = PROTIME) 13.8 s 12.0-14.7 N [facility] HospitalJjzitzCKDPEPPCLR3988-70-44 12:20:261.07[facility] FNKTOJPNLD5314-67-53 12:20:22Slight *ABN*(08/17/2013 06:20:22)[facility] HospitalJmdbvcOONAPCZPQL2039-32-77 12:20:22Slight (08/17/2013 06:20:22)[facility] HospitalBmyxacVKYDYZNNPH3324-80-65 12:20:22Slight *ABN*(08/17/2013 06:20:22)[facility] HospitalQejrnuNYVFYLXUZP5880-26-16 12:20:22Slight *ABN*(08/17/2013 06:20:22)[facility] HospitalMqsynrKDAEMVJENL1034-91-88 12:20:221+ *ABN*(08/17/2013 06:20:22)[facility] HospitalVlhgpsVNIRYBDYMJ7505-78-77 12:20:220.1[facility] YHTVGFTYQN5560-81-10 12:20:22Slight (08/17/2013 06:20:22)[facility] GBDKBRWMWT8929-67-97 06:15:58Not Indicated *NA*(08/17/2013 00:15:58)[facility] HospitalIaspsnVDWSLWELSA2419-28-97 06:15:58Negative (08/17/2013 00:15:58)[facility] HospitalEqsbqcZGGUQJCRLE2022-54-11 06:15:58Negative (08/17/2013 00:15:58) [facility] HospitalAflbceZWHWGLFUDN4542-68-41 06:15:580.[address] [place] [address] YSESUMPPSP2980-98-28 06:15:58Negative (08/17/2013 00:15:58)[facility] HospitalEhplotXLCCDUNJAM2917-67-41 06:15:58Negative *NA*(08/17/2013 00:15:58)[facility] HospitalHhnrxrVFHJVBJDHK6309-85-63 06:15:58 Test Item Value Reference Range Interpretation Comments UA pH (test code = UA pH) 6.0 1 5.0-8.0 N [facility] HospitalLjtxglWBRRSEJDVS7426-18-15 06:15:58 Test Item Value Reference Range Interpretation Comments UA Spec Grav (test code = UA Spec 1.015 1 N Grav) [facility] HospitalHibjtdQTYHZPWRTM3240-16-80 06:15:58Clear (08/17/2013 00:15:58) [facility]2013-11-04 06:15:58Yellow *NA*(08/17/2013 00:15:58)[facility] HospitalKdfltzVQIOZUWUD9151-87-66 04:15:001.[address] [place], [place] [address]OcstqlTZEIUFZQX4475-60-55 04:15:0037.0[facility] HospitalPjaizbILFUCMFOV0531-54-77 04:15:0022[facility] HospitalOjpcgqDNBMQCKSZ1917-36-70 04:15:00-4[facility] HospitalDyopceBUHYPQNRI1368-47-16 04:15:0069.0[facility] HospitalCHEMCARRI[facility] 2013-08-17 04:15:0039[facility] HospitalCinbkhGRXIWJWLH8382-54-77 04:15:007.33[facility] HospitalFkwjqqWPZLBFDQF6733-64-68 04:15:0041[facility] ZOZFGDGMC7211-49-28 02:00:521.[address] [place], [place] [address]ZozacxQUGJCXKVC9700-23-49 02:00:20448CZMethod[facility]'s HospitalVsljynWJYTMKUYF9399-58-15 02:00:000.[address] [place], [place] [address]EuavbgBKGEEVHGZ6662-52-12 02:00:0040[facility] HospitalCHEMCAR[facility] 2013-08-17 02:00:0022[facility] HospitalLfhxmpPFXOXYALN4255-75-88 02:00:009.8[facility] HospitalGyeewfZVHGBDIIV6114-31-23 02:00:004.7[facility] NDYPRYMEN4406-63-43 02:00:005.1M[facility] CenterQjkrxrMMKHLHNGK2931-52-82 02:00:000.9[facility] HospitalImwimbBPPQFSPJB9515-88-87 02:00:0014[facility] HospitalVrbqgdGCXCUFTDVR5764-38-61 02:00:00Normal (08/16/2013 20:00:00)[facility] HospitalMqmtbfMBNYJZQSDM1522-29-31 02:00:001.0[facility] HospitalCHEMISTRY 2013-06-01 10:13:0015.[address] [place], [place] [address]YwzjpjLMXLJXONT7592-20-08 10:13:0071[facility] HospitalBajzxpRCLYQGTEE5697-18-82 10:13:004.[address] [place] [address] RFNBNNRHH8642-47-58 10:13:85092JAMethodist Children's HospitalSshtglDQXGVFUYU8997-55-37 10:13:001.4[facility] HospitalRybnyvNEZEIQZVY2816-01-23 10:13:55422DGMethodist Children's HospitalVqvyyfULAVTZKXG0518-97-28 10:13:0024[facility] HospitalCHEMISTRY 2013-06-01 10:13:008.4[facility] HospitalOokaztODVRRSIOK7467-38-91 10:13:008[facility] HospitalGlnotaAIZMEWBON7766-59-88 10:13:0078[facility] IBLZNNCDGI1518-99-20 10:13:008.5[facility] HospitalSngwbrUKHXZMCGKV6832-00-69 10:13:52238YEMethodist Children's HospitalHaxsqrBHOYHPTVLD5842-09-50 10:13:0014.8[facility] HospitalZdvxiiJZXDRTJSGK8971-02-85 10:13:003.16[facility] HospitalHEMATOLOGY 2013-06-01 10:13:0089.4[facility] HospitalLirboiWTHWAMWBCH9846-66-99 10:13:[address] [place], [place] [address]UnadwiRVYHOOATFK6700-72-74 10:13:0028.[address] [place] [address] KZYQZRGPPB1927-92-91 10:13:[address] [place], [place] [address]RzcvuvVDRMXGSUFO0946-22-99 10:13:0033[address] [place], [place] [address]NzstktIPXQCVUYQS6012-84-75 10:13:00 Test Item Value Reference Range Interpretation Comments MCH (test code = MCH) 29.6 pg 27.0-31.0 N [facility] HospitalAcvwngDSMXKSCYSA8884-31-97 10:13:000.2[facility] QZAMMBOJKF9102-24-72 10:13:001.2M[facility] CenterCqjdcuHCQGXFEMTQ1463-85-92 10:13:001.7[facility] HospitalQvlyiwNLQZWPFUDH8073-64-02 10:13:000.1M[facility] CenterHgwgjzBUHBQZRIEC8944-81-85 10:13:007.0[facility] HospitalHEMATOLOGY 2013-06-01 10:13:000.6M[facility] CenterXkrathUDCSEHYCCT3800-67-[address] 10:13:[address] [place], [place] [address]EmqlflUFIKOLSEAM5126-53-23 10:13:[address] [place] [address] ZCCTHKLBCK8390-70-24 10:13:0011.9[facility]AT[facility]2013-08-19 10:13:0069.[address] [place], [place] [address]ATOLOGY2013-08-18 10:28:271.29[facility]AT[facility]2013-08-18 10:28:27 Test Item Value Reference Range Interpretation Comments PT (test code = PT) 16.3 s 12.0-14.7 H [facility] HospitalKvemrkBLTMJADNWB3556-75-09 03:34:42Negative mg/dL (05/30/2013 22:34:42)[facility] 03:34:42Negative mg/dL (05/30/2013 22:34:42)[facility]2013-[facility]-18 03:34:42 Negative mg/dL *NA*(05/30/2013 22:34:42)[facility] HospitalURINALYSIS 2013-05-31 03:34:42Clear (05/30/2013 22:34:42)[facility] HospitalURINALYS 2013-05-31 03:34:42 Test Item Value Reference Range Interpretation Comments UA Spec Grav (test code = UA Spec 1.010 1 N Grav) [facility]-18 03:34:42 Test Item Value Reference Range Interpretation Comments UA pH (test code = UA pH) 6.0 1 5.0-8.0 N [facility] HospitalGqcxwrCKHPIGMVQY0239-62-90 03:34:420.2[facility] CGZJPQVDWX3713-11-38 03:34:42Yellow *NA*(05/30/2013 22:34:42)[facility] HospitalYjdrcqTAOZBEBPWT0976-47-76 03:34:42Negative (05/30/2013 22:34:42)[facility] HospitalSvwlloGEHAGPHGGH8338-56-14 03:34:42Negative (05/30/2013 22:34:42)[facility] HospitalAbqcvrLFRPARPVNU7216-44-05 03:34:42Negative *NA*(05/30/2013 22:34:42)[facility] HospitalLkfnxyKZNXZBRDBO7036-38-66 03:34:42Negative (05/30/2013 22:34:42)[facility] HospitalCgsrmvOSKTWMAXKQ6721-93-28 03:34:42None Seen (05/30/2013 22:34:42)[facility] HospitalEjuxnrTAFALOBGGH1864-41-53 03:34:42 Rare /LPF (05/30/2013 22:34:42)[facility] HospitalBbyevqSYMSMGLUBD9308-87-18 03:34:420-2 /HPF (05/30/2013 22:34:42)[facility] HospitalURINALYSIS 2013-05-31 03:34:42Performed (05/30/2013 22:34:42)[facility] VZRYTKARAN9393-71-13 03:34:42Rare /LPF (05/30/2013 22:34:42)[facility] HospitalAnseqiBZSFVJVYN0586-98-91 03:05:1531.9[facility] HospitalIaqwcuBRHSMXHYS3624-89-90 03:05:157.36[facility] HospitalQqpvnpXGBEMTEXZ4090-50-18 03:05:1524[facility] HospitalYvqvtzIDMGLOHMI8754-72-63 03:05:1521[facility] HospitalCHEMISTRY 2013-05-31 03:05:1543[facility] HospitalUmjwjrQKSTSOLPI9478-21-86 03:05:15-1M[facility] CenterIzautzVZRVDDRDV7642-01-67 03:05:1537.0[facility] MKGNMGMJZ9213-62-12 00:40:051.4[facility] HospitalBjambnQJYOMLCVF4317-14-39 00:40:0510.8[facility] HospitalXcpbfpSOARPMZGI9680-84-83 00:40:050.3M[facility] CenterAurmjiBNFLJKXQN5180-28-57 00:40:0539[facility] HospitalCHEMISTRY 2013-05-31 00:40:53951SAMethodist Children's HospitalYssggmTRXIUYUVC7214-52-85 00:40:052.7[facility] HospitalIfolygWHIEBOGVN5030-08-13 00:40:0538[facility] JLCAVLTDT2614-67-79 00:40:0595[facility] HospitalXgnbouSNGUIJNWV3622-85-01 00:40:87599IIMethod[facility] HospitalXdfbvnYHFUFBSKI7607-03-27 00:40:0511[facility] HospitalPlckcvDKVVAVNKK8622-15-42 00:40:[address] [place], [place] [address]ZkmlacJYIXLIEOJ4440-04-99 00:40:059.0[facility] HospitalRfgmixTPJXCOBDH9216-59-31 00:40:053.5[facility] HospitalVtowuhWXYVGABGU0658-27-65 00:40:41583YQMethod[facility]'s HospitalCHEMISTRY 2013-05-31 00:40:0523[facility] HospitalUsllacKHBSSHASN2826-40-81 00:40:0599[facility] HospitalZtifmfLGMEJHDSR7195-02-27 00:40:[address] [place] [address] WHXEEZWJR0024-30-37 00:40:[address] [place], [place] [address]DxjkspLGTNOFTGP6593-46-34 00:40:0510[facility] HospitalWehkeqNETVHAIPQ8236-43-69 00:40:0516.5[facility] HospitalTrgtqzAYFKHBFGHI0583-47-15 00:40:[address]12.[address] [place], [place] [address]HEMATOLOGY 2013-05-31 00:40:[address]14.[address] [place], [place] [address]KhujezAVAJQQHONV9951-77-19 00:40:31479REMethod[facility]'s HospitalPdborvBWYCCSUADK3382-21-06 00:40:05 Test Item Value Reference Range Interpretation Comments MCH (test code = MCH) 29.2 pg 27.0-31.0 N [facility] HospitalPtkceqORSQFDPITX6702-62-69 00:40:[address] [place] [address] QHSNVFFIJO7695-42-30 00:40:058.5[facility] HospitalBqjeveCOCJVKJRPL2787-52-29 00:40:053.71[facility] HospitalYypcapHCARFGYIKL8857-46-88 00:40:0510.8[facility] HospitalJglqiqBUUTOFAKEA9364-16-62 00:40:0532.7[facility] HospitalHEMATOLOGY 2013-05-31 00:40:0588.2M[facility] CenterSlwwpbDRIJWDYXIV1126-27-92 00:40:059.7[facility] HospitalXuffszOKKHNZXBDQ6923-00-57 00:40:051.7[facility] ZSYNUEEVVP5056-18-63 00:40:0513.4[facility] HospitalBsgkkcMQFCAZXPPC2354-08-35 00:40:058.5[facility] HospitalAvgoxuILSXHZPZNR2003-45-71 00:40:050.3M[facility] CenterHtbwyvXOPWPMFWQC2826-32-21 00:40:050.7[facility] HospitalHEMATOLOGY 2013-05-31 00:40:[address] [place], [place] [address]XflwyaLPJXKRZFSL7869-53-33 00:40:05Normal (05/30/2013 19:40:05)[facility] HospitalWyustxZPPHQKDMWE9237-63-36 00:40:0577.1M[facility] CenterMnxsmoLONRRTTTYN6510-34-71 00:40:050.0[facility] UKQKCIKRNB0542-14-37 00:40:05Slight (05/30/2013 19:40:05)[facility] SYEPANFUNT2720-36-82 00:40:05Slight *ABN*(05/30/2013 19:40:05)[facility] HospitalKethphFAQDFGLOVO3349-17-14 00:40:051+ *ABN*(05/30/2013 19:40:05)[facility] HospitalAngrhdYYRLFGLTCU2936-93-25 00:40:050.1M[facility] CenterCHEMISTRY 2013-05-31 00:40:0077[facility] HospitalVnkknrZCOUMEGOS2552-36-79 00:40:37402MKMethod[facility]'s HospitalNapcmmZSVLOCKYD7624-12-14 00:00:572.7[facility] FCBWDTFOK4717-01-29 00:00:5710.8[facility] HospitalMspuqpLGRZDZCEA2741-81-34 00:00:5742[facility] HospitalDdwsejMJBFERPHG7124-19-39 00:00:[address] [place], [place] [address]ZbtasgNPONKPPMZ6190-58-45 00:00:570.1M[facility] CenterPhaukbZFGVSTGTW5729-30-40 00:00:570.4[facility] HospitalOzsseuKLSWMBFKX1358-98-75 00:00:73727EGMethodist Children's HospitalIqbmolFINERPMHN4393-79-25 00:00:5742[facility] HospitalCHEMISTRY 2013-05-31 00:00:570.[address] [place], [place] [address]DbylsjMNVMSTPYW6858-16-70 00:00:578.[address] [place], [place] [address]FamipwZAEHNWZCF3695-61-93 05:26:[address] [place] [address] OGJYXQSUP7217-18-78 05:26:001.4[facility] HospitalXsdbesVTCLGKLOC3157-41-46 05:26:[address] [place], [place] [address]EwjqzuBYTQORJWO8526-08-14 05:26:0023[facility] HospitalVbgdewAYFVRMFUB6008-78-25 05:26:0028[facility] HospitalHxidjhHTBSCTXUU1734-43-16 05:26:27629MWMethodist Children's HospitalSavoehSICAETIVX3179-17-30 05:26:30905MWMethodist Children's HospitalDwacbcZIEFTDEQS1553-37-52 05:26:0085[facility] 2013-05-19 05:26:009.[address] [place], [place] [address]FjbnutFDPDVLETY9609-41-95 05:26:0071[facility] HospitalWlzzshUJAVFMTLIC9894-21-60 05:26:[address] [place] [address] WUAIHBASRG4908-63-37 05:26:0016[address] [place], [place] [address]XeumqkXKPFRCLWCE5443-61-37 05:26:98449APMethod[facility] Children's HospitalFmlntoLAHVJNOUFE3518-16-39 05:26:008.8[facility] HospitalWvpzakNWSZARNCIO8641-01-00 05:26:00 Test Item Value Reference Range Interpretation Comments MCH (test code = MCH) 29.9 pg 27.0-31.0 N [facility] HospitalRvdtlfUEZPTAAMHT7463-08-99 05:26:007.4[facility] MZNJPJIDIE8310-90-05 05:26:007.4[facility] HospitalItgolePITJPYJQRE6099-50-90 05:26:[address]89.[address] [place], [place] [id number]5 05:26:002.46[facility] HospitalLpkkmpTZELZDSZMK4656-21-05 05:26:0022.0[facility] HospitalHEMATOLOGY 2013-05-19 05:26:000.3M[facility] CenterFyltouRGBLGGXMYM3034-59-11 05:26:001.0[facility] HospitalIsyxqoQPREJJGNQM2608-64-88 05:26:000.[address] [place] [address] GYXKXFWNFW3701-49-64 05:26:0047.4[facility] HospitalNuuhspCZNQRVGMDD3559-17-41 05:26:0032.9[facility] HospitalKtdfutIWWJLUXNMT9839-13-83 05:26:004.5[facility] HospitalOpoemvBFEJGZWXOZ5026-81-50 05:26:0014.0[facility] HospitalHE[facility]Y 2013-05-19 05:26:003.5[facility] HospitalJvbhdnHSQGTGTLWS9248-84-98 05:26:001.[address] [place], [place] [address]CznuqdXCXDZPUQEV0467-44-69 05:26:002.4[facility] EIYFILAOTL1849-04-92 05:26:00Negative *NA*(05/19/2013 00:26:00)[facility] HospitalVatgcpAQHCVLOBNS2990-11-17 23:45:12381.0[facility] HospitalHEMAT[facility]Y 2013-05-11 09:01:[address] [place], [place] [address]JpxzvnAKFSSSSUHN4965-07-23 09:01:193.02 [facility] HospitalLixtnhKFAGEFLOFS4565-34-66 09:01:[address] [place] [id number] RDQOBASEFY3104-34-23 09:01:[address] [place], [place] [address]IlbafwZZOJRMRFZI5742-54-63 09:01:19 Test Item Value Reference Range Interpretation Comments MCH (test code = MCH) 28.9 pg 27.0-31.0 N [facility] HospitalVmkenkXQPZSEPSIY1250-26-68 09:01:[address]27.[address] [place] [address] HCMFPJKAJX7749-68-04 09:01:198.7[facility] HospitalXndvnoZAQSJPWLHN4441-59-47 09:01:198.4[facility] HospitalUpoklcZDTYJLWGSY9152-95-10 09:01:77897PYMethodist Children's HospitalBxvztgNKAVZWOUYC6475-69-72 09:01:[address] [place], [place] [address]HEMATOLOGY 2013-05-11 09:01:190.[address] [place], [place] [address]MfoxbnTDTPTUHRRU1610-47-11 09:01:194.4[facility] HospitalJgctxnCVDGWXPKWY5652-41-00 09:01:193.8[facility] IKLMYRVRSJ5147-94-97 09:01:1912.7[facility] HospitalLwqbtnZWYEHLZYQU0894-48-04 09:01:[address] [place], [place] [address]IsndzwNLOLVNKHWX1509-61-97 09:01:190.8[facility] HospitalBxxfitNJTBVMGHYM7908-11-28 09:01:191.0[facility] HospitalHEMATOLOGY 2013-05-11 09:01:[address] [place], [place] [address]RituelHBOHSHQISV6406-40-20 09:01:[address] [place], [place] [address]JwmnrtXWMKTKKROF5486-58-04 09:01:1920.7[facility] YTGJNEIHP6124-05-13 09:50:[address]19[address] [place], [place] [id number]6 09:50:1786[facility] HospitalWqngdtGMYNBDFBF7921-70-88 09:50:[address] [place], [place] [address]OxfwovGCMUAWBIO0139-08-40 09:50:1781[facility] HospitalZkdhxfTMTZUTMPG5324-76-83 09:50:1718[facility] HospitalOgihigVXANIBETP6796-44-86 09:50:171[address] [place], [place] [address]GplhtkQYCIZDIVW8770-06-41 09:50:1725[facility] HospitalJegfufEVYESMZLX1092-27-47 09:50:1795[facility] HospitalFrvnguSTGGSWSNY8603-88-41 09:50:[address] [place], [place] [id number]5 09:50:86231JJMethodist [facility] 09:50:158.[address] [place], [place] [address]QpwhyxCUYXNCHNDB6137-44-49 09:50:33187QGMethodist Children's HospitalSgjayuTQBFPPZLSR6774-83-02 09:50:1532.0[facility] AXSXPLUCGP4887-13-03 09:50:1515.7[facility] HospitalQvmxxcUEZFQFAXOX6122-71-57 09:50:1522.4[facility] HospitalRktortUBNVEWHHZC0218-81-63 09:50:15 Test Item Value Reference Range Interpretation Comments MCH (test code = MCH) 28.9 pg 27.0-31.0 N [facility] HospitalSeoppjFTKJHSIKTL9509-50-35 09:50:1590.3[facility] XRXEDBHCMB2795-60-13 09:50:159.0[facility] HospitalGyroniUTMVNHUUWI8733-99-48 09:50:153.11[facility] HospitalHneocrYRTIQURCNG0701-78-18 09:50:1528.1M[facility] CenterOzqmbfCSOLUGWQVV4751-98-98 09:50:1511.0[facility] HospitalHE[facility]Y 2013-05-10 09:50:150.9[facility] HospitalEbgmciQBGNHWTXRD4581-69-88 09:50:1569.0[facility] HospitalBszfwiXJAEHYTENI2659-94-08 09:50:152.0[facility] HDSCUQXTYP6595-27-52 09:50:151.0[facility] HospitalCrhgtcMEIYZNKQSV2788-97-10 09:50:151.0[facility] HospitalQazrazOMWLKNYTAV6023-31-49 09:50:158.0[facility] HospitalJfhiacMHAONATYDB7498-89-36 09:50:154.0[facility] HospitalHE[facility] 2013-05-10 09:50:154.0[facility] HospitalLbtgdfJIPJIUSPIF7931-67-17 09:50:151.8[facility] HospitalLvwlszGHNPHYZSMR3129-32-82 09:50:152.7[facility] IAPTEHCVLI3906-59-04 09:50:1515.9[facility] HospitalYobdilTXSPTPAZS0385-89-62 22:42:00<0.010[facility] HospitalEvomjrPIBWWRBZT8303-26-63 22:42:0043[facility] HospitalVkzwjkMAINYKTWP4166-57-72 22:42:0061[facility] HospitalCHEMISTRY 2013-05-09 12:39:0296[facility] HospitalTygfinETNSSBYMQ5465-86-32 12:39:0228[facility] HospitalGfsvkeVDPEGBVNE2379-41-95 12:39:029.[address] [place] [id number] EKJROZCLY5067-75-05 12:39:[address]12.[address] [place], [place] [address]WiohfjTVPXNEXUO4258-88-02 12:39:12143ANMethodist Children's HospitalKynckvUIFLCHWHP4013-93-67 12:39:[address] [place], [place] [address]LeeodlQJEGHKXKS7214-13-06 12:39:021.[address] [place], [place] [address]CHEMISTRY 2013-05-09 12:39:0284[facility] HospitalQemuspGXWMBUKRU6029-71-23 12:39:0219[facility] HospitalNjxbxrOUFSGACKQ1844-90-26 12:39:0278[facility] TNZSIOIDQ0046-35-19 12:39:025.8[facility] HospitalGnbnsnUEPHUGXSTJ0275-43-01 07:18:007.0[facility] HospitalMcjimzUNMOUXDEXT3415-90-80 07:18:00Slight *ABN*(05/09/2013 02:18:00)[facility] HospitalVjdbblTGMDWTRGEV0641-89-45 07:18:00 3.0[facility] HospitalTmphdjAYMIRPVTGX0698-09-87 07:18:003.0[facility] HospitalIvaahzIHJTGBITCO9629-07-33 07:18:000.0[facility] HospitalDvwxjnRNWBOGUYT5929-96-58 05:45:004.0[facility] HospitalSevuhuJAWXVMZYP2536-81-01 05:45:002.0[facility]2013-[facility] 05:45:00Slight *ABN*(05/07/2013 00:45:00)[facility] HospitalAngdcuFCNAKIZEYW6260-60-91 05:45:00Slight *ABN*(05/07/2013 00:45:00)[facility] HospitalVeoyfiBKXCEQGMGV0412-69-41 05:45:00Slight *ABN*(05/07/2013 00:45:00)[facility]2013-07-25 05:45:00 Slight *ABN*(05/07/2013 00:45:00)[facility] HospitalJncyfiQMGYXQDQQK5870-63-46 05:45:00Slight *ABN*(05/07/2013 00:45:00)[facility] HospitalHEMAT[facility]Y 2013-05-07 05:45:00Slight *ABN*(05/07/2013 00:45:00)[facility] DTUEXVMOHQ2738-61-16 05:45:00Slight (05/07/2013 00:45:00)[facility] LJYLEXFYZQ5264-07-34 05:45:00Slight (05/07/2013 00:45:00)[facility] AVURSLLNXA6595-29-48 05:45:001+ *ABN*(05/07/2013 00:45:00)[facility] HospitalQllsbrRIEJVKCTTN8759-19-47 05:45:001+ *ABN*(05/07/2013 00:45:00)[facility] HospitalIbfouhEHIZZYMZMG5675-97-01 05:45:000.0[facility] HospitalHEMATOLOGY 2013-05-07 05:45:001.0[facility] HospitalSpurfrVTMCTWQSMR9437-64-11 05:45:00Slight *ABN*(05/07/2013 00:45:00)[facility] HospitalDwqlrhHTAIVTBNUK3608-67-68 05:45:00 Slight *ABN*(05/07/2013 00:45:00)[facility] HospitalOdlbzhNOXRAQCEJD5915-66-27 05:45:001.0[facility] HospitalQgefsdKDZDWIARWI3194-65-60 05:45:003.0[facility] HospitalKqvidpBIAOXKWCKY1117-60-42 05:45:00Negative *NA*(05/07/2013 00:45:00)[facility] HospitalGtpkaqSDBJKUPRA3607-05-83 05:27:004.0[facility] XMDWFRBUK6086-94-41 05:27:[address] [place], [place] [address]SooqrqHZGATZHOS0215-42-99 05:27:0036[facility] HospitalFvrvvbTQUAPPNYE7009-67-68 05:27:000.7[facility] HospitalDmjnmuHCEEFAKFV2903-51-63 05:27:000.4[facility] HospitalLucmtaEYNGLKCQA9630-98-00 05:27:[address] [place], [place] [address]ZxvbgaFYZRPROHR4701-51-06 05:27:72478RLMethodist Children's HospitalTjzbjwRMBEWTJMR7021-17-31 05:27:0033[facility] HospitalCHEMISTRY 2013-05-06 05:27:001.7[facility] HospitalQrgqwxUCSXYVLIH3363-60-88 05:27:[address] [place], [place] [id number]-89 05:27:[address] [place] [address] LJZDHGBHQ2164-90-40 05:27:[address] [place], [place] [address]LgvqkcBIRATPCEYT4890-86-48 05:27:001.0[facility] HospitalErcscsKEERTYHVTI1268-89-00 05:27:00Normal (05/06/2013 00:27:00)[facility] HospitalEvhdzhYDVWBTWUTB2327-36-85 05:27:00Slight *ABN*(05/06/2013 00:27:00)[facility] HospitalQczdyfDFGGHRKXQP0323-86-33 05:27:00 0.2ML[facility] CenterIctufbHSISFOAJDS7010-23-60 05:27:001+ *ABN*(05/06/2013 00:27:00)[facility]2013-07-24 05:27:00Slight (05/06/2013 00:27:00)[facility]2013-07-24 05:27:00Slight *ABN*(05/06/2013 00:27:00)[facility]2013-07-24 05:27:00 Slight *ABN*(05/06/2013 00:27:00)[facility] HospitalSikdunSSQTHLXYY3389-39-65 09:56:001.8[facility] HospitalGwepcdLUVKBEONZ0231-12-88 09:56:003.9[facility] HospitalNifngqUFTRTGBFJ6870-23-95 08:49:004.64[facility] 2013-05-04 08:49:001.18[facility] HospitalLdkngpVRDGKFQIT5551-93-03 08:49:004.72[facility] HospitalEttazzCMIAMHMJC2256-55-37 08:49:001.16[facility] BEDSIDE GLUCOSE PLFCFXD7853-74-30 00:37:87655ELMethodist Children's HospitalBEDSIDE GLUCOSE HMDKLJI7274-82-69 20:56:0099[facility] HospitalBEDSIDE GLUCOSE ZKKTHFX6406-22-15 17:11:0094[facility] HospitalNecdqhQASYRMXBF9337-51-40 06:45:00 4.80[facility] HospitalEjzmhmIEFUOWQLX0857-83-88 06:45:001.15[facility] HospitalYcciscLUKNQHEOB6246-64-81 06:45:001.20[facility] HospitalTiwjhzJHQZNZSEE3345-89-99 06:45:004.60[facility] HospitalSkbxasWGDJRBZOM8553-63-88 08:58:005.24[facility] HospitalUhogeeZIBGOOYUD4078-65-71 08:58:001.31[facility]IST[facility] 2013-05-02 08:58:004.36[facility] HospitalKauedgNCAONMGYB0785-31-42 08:58:001.09[facility] HospitalWmupbyIAJQYJESEQ6313-46-44 08:58:00>190.0[facility] HospitalVfsooyBJGEMROHYA5173-39-94 08:58:0012.1[facility] CenterCHEMI[facility]Y 2013-05-01 05:35:0030.1M[facility] CenterVjgrraLOXOLISCXI7695-70-77 07:36:27 Negative mg/dL *NA*(04/30/2013 02:36:27)[facility] HospitalURINALYSIS 2013-04-30 07:36:27Few /LPF *NA*(04/30/2013 02:36:27)[facility] ZNYEQXPOWD7341-88-65 07:36:27Occasional /LPF *NA*(04/30/2013 02:36:27)[facility] HospitalWjshgnHRPJWUAWGG3587-64-13 07:36:27<1[facility] VTAELTNEOF2795-17-16 07:36:276[facility] SouthWyicmuLQOHWYLQNZ6456-64-81 07:36:27Yellow *NA*(04/30/2013 02:36:27)[facility] HospitalURINALYSIS 2013-04-30 07:36:27Clear (04/30/2013 02:36:27)[facility] HospitalURINALYSIS 2013-04-30 07:36:27Negative *NA*(04/30/2013 02:36:27)[facility] PKBQCKQGQW4860-21-27 07:36:27Small *ABN*(04/30/2013 02:36:27)[facility] HospitalUejrphQHJZBQEIDJ8933-34-73 07:36:27Negative (04/30/2013 02:36:27)[facility] HospitalPhfieyYXPMAWWHIN2107-80-78 07:36:27Negative (04/30/2013 02:36:27)[facility] HospitalBgurepAVLNJNMJYH3496-69-35 07:36:2770 mg/dL *ABN*(04/30/2013 02:36:27)[facility] HospitalGfdihzYNVNQMFXWI7079-45-87 07:36:27Negative mg/dL *NA*(04/30/2013 02:36:27)[facility] HospitalNoiayhNGDCYQIZQA1953-54-59 07:36:27 1.019[facility] HospitalYqvlacXXMWFFFVHP4486-49-28 07:36:276.5[facility]2013-07-18 05:47:00Slight *ABN*(04/30/2013 00:47:00)[facility]2013-07-18 05:47:00Slight *ABN*(04/30/2013 00:47:00)[facility]2013-07-18 05:47:00Slight (04/30/2013 00:47:00)[facility]2013-07-18 05:47:00Normal (04/30/2013 00:47:00)[facility] HospitalBpapbfPPGVJQDSZ8053-57-25 21:36:0067[facility] TLDLQSGPY4092-50-80 21:36:005.3M[facility] CenterTnbayiCBTJOIHBD9833-95-74 21:36:0080[facility] HospitalFhorhsWGARRLVYF2164-73-27 21:36:001.5[facility] HospitalEngrvtSVLIZPSDS5178-08-64 21:36:35771HNMethodist Children's HospitalBdejluEZKHBUQAR7677-07-16 21:36:001.1M[facility] CenterGqjgacBDHONWFIQ6531-08-61 21:36:001.7[facility] HospitalSpimowSIHEJUCOB4596-88-05 21:36:003.6[facility] 2013-04-28 21:36:000.4[facility] HospitalVmgrwkXRESIBDSF4134-63-48 21:36:000.5[facility] HospitalBL[facility] YZVOYAZ7020-18-15 13:18:00Product available (04/28/2013 08:18:00)[facility] YBJLIOH7268-68-22 13:18:00Product available (04/28/2013 08:18:00)[facility] 2013-04-28 06:00:000.5[facility] HospitalTzqdqqODPAROWQT5378-77-21 06:00:000.3M[facility] CenterJdreafABDHACIWM5251-83-35 06:00:003.3M[facility] KTKJVSRHI5314-67-18 06:00:001.2M[facility] CenterOqzjtdJRSMPZQIF7784-20-09 06:00:000.9[facility] HospitalIposlqAXJAOIUBV8782-54-07 06:00:004.8[facility]2013-07-16 06:00:09270FBBaylor Scott & [facility] 2013-04-28 06:00:001.5[facility]2013-07-16 06:00:0065[facility]2013-07-16 06:00:0080[facility] YZJOBUVQIL5274-37-79 06:00:00 Test Item Value Reference Range Interpretation Comments PT (test code = PT) 13.6 s 12.0-14.7 N [facility]2013-07-16 06:00:00 Test Item Value Reference Range Interpretation Comments PTT (test code = PTT) 37.3 s 22.9-35.8 H [facility]2013-07-16 06:00:001.02[facility] BLOOD BANK GWHJDHM7640-98-66 05:01:00Negative (04/28/2013 00:01:00)[facility]2013-07-15 20:59:286323MJBaylor [facility] & [facility] 2013-04-27 20:59:4113.0[facility]2013-07-14 05:23:1312.3 [facility]2013-07-14 05:23:13 Test Item Value Reference Range Interpretation Comments Max Amp (test code = Max Amp) 71 mm 52-71 N [facility]2013-07-14 05:23:130.0[facility] AZKCJYKZQQ0473-27-59 05:23:13 Test Item Value Reference Range Interpretation Comments ACT (TEG) (test code = ACT (TEG)) 105 s 86-118 N [facility]2013-07-14 05:23:13 Test Item Value Reference Range Interpretation Comments R-time (test code = R-time) 0.6 min 0.4-0.7 N [facility]2013-07-14 05:23:13 Test Item Value Reference Range Interpretation Comments K-time (test code = K-time) 1.2 min 0.6-2.3 N [facility]2013-07-14 05:23:13 Test Item Value Reference Range Interpretation Comments Angle (test code = Angle) 74 degrees 64-80 N [facility] HospitalCjvuaxWDSDKQZZYP0421-28-72 05:23:13 Test Item Value Reference Range Interpretation Comments Split Point (test code = Split Point) 0.4 min [facility] HospitalZcyvobYOXAFXACS0484-96-04 21:39:469095NOMethodist [facility] Hospital UHXGGFPUB8076-02-14 21:39:2316.6M[facility] CenterVtbpjdYDQNARLGH3420-00-90 09:24:0028[facility] HospitalNskmnnAKAKTXRPP2267-06-17 09:24:0049[facility] HospitalYvtearQJAWIBUOS2987-55-11 09:24:002[facility] HospitalQkdyftRIRYAYCIH1552-75-07 09:24:0099.0[facility] HospitalEwusktMHNSWBOKF8681-49-22 09:24:77003HCMethodist Children's HospitalJquucqFTUABZMTH4143-07-71 09:24:0037.0[facility] 2013-04-25 09:24:007.36[facility] HospitalFyzbhnFGNXSGBPB7644-73-91 05:45:001.0[facility] HospitalZjqxxsKVGKFNIJX5771-85-00 05:45:62197BL[facility]ist [facility] Hospital TACHEITHK1360-48-86 05:45:55562YCMethodist Children's HospitalAdhajxWFRHVCNVC6791-32-59 05:45:0029[facility] HospitalRfkjelSORRVPZQT7554-23-91 05:45:0099.0[facility] HospitalVjlihlTOGKSOPJS3065-70-48 05:45:0058[facility]IST[facility] 2013-04-25 05:45:003[facility] HospitalLcjfefIAWJNMXDF6482-87-65 05:45:003.8[facility] HospitalEdxdbtMDCQULTTM6372-89-23 05:45:001.09[facility] XAQEDBFBQ9476-06-48 05:45:0021.0[facility] HospitalMkllvoAAHEFRNFW6294-31-26 05:45:61408NLMethodist Children's HospitalWannosUFUBTCDKO7636-89-15 05:45:0037.0[facility] HospitalYyqmymTACRHNVRF7443-83-57 05:45:007.31[facility] 2013-04-25 05:05:46 Test Item Value Reference Range Interpretation Comments K-time (test code = K-time) 1.5 min 0.6-2.3 N [facility] HospitalWzixnlQUWMALZRBH2049-75-59 05:05:460.6M[facility] RXPISUJKRR1129-99-17 05:05:46 Test Item Value Reference Range Interpretation Comments Max Amp (test code = Max Amp) 67 mm 52-71 N [facility]2013-07-13 05:05:469.9[facility] MLEVAIHKED0796-05-50 05:05:46 Test Item Value Reference Range Interpretation Comments Angle (test code = Angle) 72 degrees 64-80 N [facility]2013-07-13 05:05:46 Test Item Value Reference Range Interpretation Comments ACT (TEG) (test code = ACT (TEG)) 152 s 86-118 H [facility]2013-07-13 05:05:46 Test Item Value Reference Range Interpretation Comments R-time (test code = R-time) 1.1 min 0.4-0.7 H [facility]2013-07-13 05:05:46 Test Item Value Reference Range Interpretation Comments Split Point (test code = Split Point) 0.9 min [facility] HospitalHpthafJBOSQOQRY1564-96-00 05:05:06079IK[facility] Hospital CKSBVYFMEJ5550-49-32 05:05:[address] [place], [place] [address]DuznotGWWNFAYWGS8076-47-76 05:05:00>190.0 mg/L 32(04/25/2013 00:05:00)[facility] 2013-04-24 08:00:00 Test Item Value Reference Range Interpretation Comments Max Amp (test code = Max Amp) 65 mm 52-71 N [facility]2013-07-12 08:00:000.0[facility] PUSSFCLJQE6794-33-65 08:00:009.3MLamb [facility] CenterNttibfHYRCNYUYKF3011-64-16 08:00:00 Test Item Value Reference Range Interpretation Comments Angle (test code = Angle) 74 degrees 64-80 N [facility]2013-07-12 08:00:00 Test Item Value Reference Range Interpretation Comments K-time (test code = K-time) 1.2 min 0.6-2.3 N [facility]2013-07-12 08:00:00 Test Item Value Reference Range Interpretation Comments Split Point (test code = Split Point) 0.2 min [facility]2013-07-12 08:00:00 Test Item Value Reference Range Interpretation Comments R-time (test code = R-time) 0.5 min 0.4-0.7 N [facility]2013-07-12 08:00:00 Test Item Value Reference Range Interpretation Comments ACT (TEG) (test code = ACT (TEG)) 97 s 86-118 N [facility]2013-07-12 06:49:00Slight *ABN*(04/24/2013 01:49:00)[facility]2013-07-12 06:49:00Slight *ABN*(04/24/2013 01:49:00)[facility]2013-07-12 06:49:00 Slight *ABN*(04/24/2013 01:49:00)[facility]2013-07-12 06:49:001+ *ABN*(04/24/2013 01:49:00)[facility]2013-07-12 06:49:00Slight (04/24/2013 01:49:00)[facility] HospitalISTRY2013-07-12 00:01:49923HOMethodist Children's HospitalGrdafsWDAWXKYCD5062-73-30 00:01:0037.0[facility] HospitalGzstbgFIJCSCMZX9764-69-11 00:01:007.46[facility] 2013-04-24 00:01:38789VYMethodist Children's HospitalEmoajuGDLZHADZG8912-63-01 00:01:0028[facility] HospitalZdqkamHUQYZYVVF9339-02-57 00:01:0039[facility] MVGDEYZZU4242-65-70 00:01:004[facility] HospitalIqcynvCAAGLALDQ9536-73-40 00:01:00 3.7[facility] HospitalRxpeevCZHHOHGOY2642-92-67 00:01:0098.0[facility] HospitalNvhhfuKZNBXONPA1747-32-99 00:01:001.09[facility] HospitalSwbzicRYZKHZBOC3018-48-94 00:01:0027.0[facility] HospitalDxndiyYHVXEGBQF3465-95-45 00:01:07295IXMethodist Children's HospitalNsadoiDYXKACCTI1851-82-34 00:01:001.4[facility] HospitalCHEMISTRY 2013-04-23 19:34:563971VOMethodist Children's HospitalZxvdmnMVXLJDWFC8749-74-92 19:34:4923.6M[facility] CenterBODY XPFPZP2153-35-30 12:02:19Pleural *NA*(04/23/2013 07:02:19)[facility] HospitalBODY HLHTTR9661-73-15 12:02:194.0[facility] HospitalBODY HCUREN1672-14-95 12:00:59Pleural *NA*(04/23/2013 07:00:59)[facility] HospitalBODY BWNJMS9822-24-55 12:00:593.9[facility] HospitalBODY CDAPXU8609-57-43 11:55:37JP Drain *NA*(04/23/2013 06:55:37)[facility] HospitalBODY TBNSXG2438-44-41 11:55:3711.0[facility] HospitalHEMATOLOGY 2013-04-23 05:01:00Slight *ABN*(04/23/2013 00:01:00)[facility] DQBODLUDYC3070-53-94 05:01:00Slight *ABN*(04/23/2013 00:01:00)[facility] HospitalOouewkUPSGOUPVSE9813-53-46 05:01:002[facility] HospitalVaiisyQOXQPVIWBG3091-07-23 05:01:00Slight (04/23/2013 00:01:00)[facility] HospitalWwaesnAXTJWFTTOY9359-50-44 05:01:00Slight *ABN*(04/23/2013 00:01:00)[facility] HospitalURINALYSIS 2013-04-23 04:27:43Negative *NA*(04/22/2013 23:27:43)[facility] DHZIFYWPMN1025-77-66 04:27:43Negative mg/dL *NA*(04/22/2013 23:27:43)[facility] HospitalHfxtlaYIXNVFJDRY0567-62-17 04:27:43Negative (04/22/2013 23:27:43)[facility] HospitalYfdwdxFVWAWPLWAU9383-31-22 04:27:436.0[facility] UQUQVJLFGB8722-02-31 04:27:431.032[facility] HospitalLkcxxxFISJBMLHHR1056-60-10 04:27:43Clear (04/22/2013 23:27:43)[facility] HospitalGdmqmoCSNSKFXUPG9878-42-52 04:27:43Dark Yellow *NA*(04/22/2013 23:27:43)[facility] HospitalURINALYSIS 2013-04-23 04:27:87664 mg/dL *ABN*(04/22/2013 23:27:43)[facility] NVQNYTORZQ7787-17-59 04:27:43Negative mg/dL *NA*(04/22/2013 23:27:43)[facility] HospitalOlhfsrLMBRXMMKVQ4861-50-28 04:27:438.0[facility] HospitalURINALYSIS 2013-04-23 04:27:43Moderate *ABN*(04/22/2013 23:27:43)[facility] BFIQRQPQWF7186-95-41 04:27:432[facility] HospitalRhpcczKJBOQZPNSK9851-84-89 04:27:43Negative (04/22/2013 23:27:43)[facility] HospitalURINALYSIS 2013-04-23 04:27:431[facility] HospitalPuzcduXVJDRNYPBT3295-18-40 04:27:43Few /LPF *NA*(04/22/2013 23:27:43)[facility] HospitalBL[facility]OD BANK FFPVCRV5185-94-76 10:45:00Negative (04/22/2013 05:45:00)[facility] HospitalJiqnjdYKYUGHDRM9772-89-22 05:08:0040.0[facility] HospitalNsefklGSHQKNAEG6767-89-74 05:08:001.17[facility] HospitalAsbtwtPUHDFAWKG1178-14-57 05:08:53911GJMethodist Children's HospitalCHEMISTRY 2013-04-22 05:08:003.2M[facility] CenterWfcfnuIXECVQEJM6414-92-36 05:08:002.1M[facility] CenterUekppeTAZRLLPSA2269-19-57 05:08:93612NJMethodist [facility] Hospital YGFUEDAJL3840-04-58 05:08:00 Test Item Value Reference Range Interpretation Comments POC A Mech Rate (test code = POC A 12 bpm <=70 N Mech Rate) [facility] HospitalOyxflqHTOUAFCQC8444-07-15 05:08:41288ZOMethod[facility] BJNGIMYBE8310-82-35 05:08:005.0[facility] HospitalClgjquDZQRNJPDP8690-38-04 05:00:002.7[facility] CNKFS8011-09-37 09:59:15Positive *ABN*(04/21/2013 04:59:15)[facility] HospitalIebslwAHEFKKQUG4197-63-70 05:10:00 40.0[facility] HospitalTobcpsUWHBVGJAN0326-11-89 05:10:14035BP[facility]ISTRY2013-07-09 05:10:00 Test Item Value Reference Range Interpretation Comments POC A Mech Rate (test code = POC A 12 bpm <=70 N Mech Rate) [facility] HospitalQjylbbYUBDZVGFT5545-32-07 05:10:005.0[facility] NCMIYBZQH6937-30-18 21:09:0030.0[facility] HospitalUutrwxHAIOXCPMO7909-63-88 16:38:001.4[facility] HospitalDayhnlRZHENKYNC4650-37-89 05:30:002.6M[facility] CenterCjgsylCFLAXFJTQ6471-38-45 03:58:4119.9[facility] HospitalURINALYSIS 2013-04-19 02:32:50Few /LPF *NA*(04/18/2013 21:32:50)[facility] PEKUZNQXBX8153-66-35 02:32:502[facility] HospitalLrrobpCSTVQMWCOL3322-28-47 02:32:501[facility] HospitalBjfautVBLMALGOGF6902-83-15 02:32:50Occasional /HPF *NA*(04/18/2013 21:32:50)[facility] HospitalIzaiyvUZCFLNLSXJ0794-00-24 02:32:50 Negative (04/18/2013 21:32:50)[facility] HospitalQrhuqfIJTGUCNLLH6920-26-05 02:32:5050 mg/dL *ABN*(04/18/2013 21:32:50)[facility] HospitalURINALYSIS 2013-04-19 02:32:50Negative *NA*(04/18/2013 21:32:50)[facility] MNMCHFCHIQ1148-59-41 02:32:5010 mg/dL *ABN*(04/18/2013 21:32:50)[facility] HospitalJjmjpnJBMCIQBSGM0446-58-07 02:32:50Negative (04/18/2013 21:32:50)[facility] HospitalHgoczvFEBBQUOHWA3923-42-23 02:32:50Large *ABN*(04/18/2013 21:32:50)[facility] HospitalDdlljsPGFBOEFQDO1947-74-58 02:32:50Negative mg/dL *NA*(04/18/2013 21:32:50)[facility] HospitalRviyvySOZVOGRXUJ2950-28-16 02:32:506.0[facility] HospitalMjesoaOIKTUMFNNJ9338-17-85 02:32:501.019[facility] HospitalURINALYSIS 2013-04-19 02:32:50Clear (04/18/2013 21:32:50)[facility] HospitalURINALYS 2013-04-19 02:32:50Yellow *NA*(04/18/2013 21:32:50)[facility] QGMGKYJPE8529-40-74 00:46:0049[facility] HospitalMotkaoDSZGHVYID7481-57-00 00:46:0037.0[facility] HospitalMtwruvPQAYIHJGE7549-18-75 00:46:0082.0[facility] HospitalRzjrxrHHWALFRUR1207-92-35 00:46:0025[facility] HospitalCHEMISTRY 2013-04-19 00:46:00-[address] [place], [place] [address]NullrdDFWPOAZSO9557-71-33 00:46:0050[facility] HospitalSptiioVUUFYRSVA8545-11-77 00:46:007.32[facility] HospitalBL[facility] XJEVNIX2211-03-85 00:36:00Product available (04/18/2013 19:36:00)[facility] [facility] [id number] 00:36:00Product available (04/18/2013 19:36:00)[facility] HospitalLcffmcBWYCYXDTU0598-66-27 06:58:0078.0[facility] HospitalXmqpasKCQUVVTTE9084-69-77 06:58:0033[facility] HospitalCHEMISTRY 2013-04-18 06:58:005[facility] HospitalNpkhkeQPKJQOBTE8024-78-93 06:58:0045[facility] HospitalBzyceaABNFYLXPU8127-85-63 06:58:0059[facility] VOFAVQCRP5619-96-15 06:58:007.35[facility] HospitalSwxdmePPRPPXTJJ8937-80-64 06:58:0037.0[facility] HospitalBbnjylAWUXMZHES3414-46-23 05:23:328[facility] EQMGMYX6795-75-07 04:38:00Product available (04/17/2013 23:38:00)[facility] [id number] 02:32:00Product available (04/17/2013 21:32:00)[facility] RESULTS 2013-04-18 02:32:00Product available (04/17/2013 21:32:00)[facility] HospitalRtiqzdNUNJBYDRFU8300-69-44 01:05:500.0[facility] HospitalHEMATOLOGY 2013-04-18 01:05:50See Note 29(04/17/2013 20:05:50)[facility] DIQGLGSJWA8452-67-20 01:05:50-0.4[facility] HospitalBACTERIAL - SEROLOGY 2013-04-18 01:04:27Negative 1(04/17/2013 20:04:27)[facility] WSXBIIHHK3092-66-13 21:44:5724.0[facility] HospitalHxblgbYXNBMBYND4685-41-22 21:44:5737.0[facility] HospitalIixwzqQIXGIJSET2896-62-90 21:44:5724[facility] HospitalPhlgqsJKSDLIHYX7792-72-26 21:44:577.12[facility] HospitalCHEMISTRY 2013-04-17 21:44:5767[facility] HospitalZyftnbRLRBCJZFB9297-21-08 21:44:5722[facility] HospitalKrfufiRQOYXCSMX7349-93-26 21:44:57-9[facility] ALLQUFT2689-23-56 21:44:00Negative 12(04/17/2013 16:44:00)[facility] HospitalGgmzptVVELPLYZO5281-21-26 21:44:0023(04/17/2013 16:44:00)[facility] UIYQRVXUU7298-14-71 21:44:0024(04/17/2013 16:44:00)[facility]
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
--- OUTSIDE RECORDS SUMMARY | 2020-03-10 21:52 | XMS REPORT | Summary of Care ---
:1990 Author Organization [facility] Address [address] [place] [address] Care Team Providers Name Role Phone MD Dg Primary Care Provider Reason for Visit Reason Comments Refill Request Encounter Details Date Type Department Care Team Description 02/24/2020 Refill [facility] Family Medicine Thomas Siegel MD Refill Request - [address] [address] [place] [address] [phone] Allergies No Known Allergiesdocumented as of this encounter (statuses as of 02/24/2020) Medications Medication Sig Dispensed Refills Start Date End Date Status naproxen 500 mg Take 1 20 tablet 0 01/23/2020 Act tasha tabletIndications: tablet by Rib pain on right mouth 2 side (two) times daily with meals. ALPRAZolam 2 mg Take 1 90 tablet 1 01/29/2020 Act tasha tabletIndications: tablet by Anxiety mouth 3 (three) times daily as needed for Sleep. dextroamphetamine-a Take 1 60 tablet 0 01/29/2020 Active mphetamine tablet by (ADDERALL) 20 mg mouth 2 tabletIndications: (two) times Attention deficit daily. disorder (ADD) without hyperactivity carisoprodoL 350 mg Take 1 60 tablet 1 01/29/2020 Active tabletIndications: tablet by Chronic pain due to mouth 2 trauma (two) times daily as needed for Pain (scale 4-6). HYDROcodone-acetami Take 1 150 tablet 0 02/24/2020 Active nophen 10-325 mg tablet by tabletIndications: mouth every Chronic pain due to 4 (four) trauma hours as needed for Pain (scale 4-6). HYDROcodone-acetami Take 1 150 tablet 0 01/29/2020 02/24/20 2 Discontinued nophen 10-325 mg tablet by 0 (Re order) tabletIndications: mouth every Chronic pain due to 4 (four) trauma hours as needed for Pain (scale 4-6). documented as of this encounter (statuses as of 02/24/2020) Active Problems Problem Noted Date Hematemesis 12/19/2019 Hematemesis with nausea 12/18/2019 Overview: Added automatically from request for rona betsy [id number] Hematemesis without nausea 12/18/2019 Overview: Added automatically from request for rona betsy [id number] Attention deficit disorder (ADD) without hyperactivity 07/29/2017 Dehydration 03/09/2016 Anxiety 08/18/2015 Chronic pain due to injury 08/18/2015 documented as of this encounter (statuses as of 02/24/2020) Social History Tobacco Use Types Packs/Day Years [...] Telemedicine Visit Family Medicine Med Conte MD [address] [place] [address] [phone] Health Maintenance Due Date Last Done Comments VARICELLA VACCINES (1 of 2 - 2-dose childhood series) 1993 PNEUMOCOCCAL 0-64 YEARS COMBINED SERIES (1 of 1 - 1998 PPSV23) DTaP,Tdap,and Td Vaccines (1 - Tdap) 2003 INFLUENZA VACCINE (Season Ended) 2020 documented as of this encounter Results Not on filedocumented in this encounter Visit Diagnoses Diagnosis Chronic pain due to trauma documented in this encounter Insurance Payer Benefit Plan / Subscriber ID Effective Phone Address T ype Group Dates [employer] [id number] 2016-Pre [phone] [employer] sent [phone] [facility] , [address] [place] [address] documented as of this encounter
--- OUTSIDE RECORDS SUMMARY | 2020-03-10 21:52 | XMS REPORT | Summary of Care ---
:1990 Author Organization [facility] Address [address] [place] [address] Care Team Providers Name Role Phone MD Dg Primary Care Provider Reason for Visit Reason Comments Refill Request Encounter Details Date Type Department Care Team Description 01/26/2020 Refill [facility] Family Medicine Thomas Siegel MD Refill Request - [address] [address] [place] [address] [phone] Allergies No Known Allergiesdocumented as of this encounter (statuses as of 01/28/2020) Medications Medication Sig Dispensed Refills Start Date [...] as of this encounter (statuses as of 01/28/2020) Active Problems Problem Noted Date Hematemesis 12/19/2019 Hematemesis with nausea 12/18/2019 Overview: Added automatically from request for rona betsy [id number] Hematemesis without nausea 12/18/2019 Overview: Added automatically from request for rona betsy [id number] Attention deficit disorder (ADD) without hyperactivity 07/29/2017 Dehydration 03/09/2016 Anxiety 08/18/2015 Chronic pain due to injury 08/18/2015 documented as of this encounter (statuses as of 01/28/2020) Social History Tobacco Use Types Packs/Day Years [...] Telemedicine Visit Family Medicine Med Conte MD [address] [place] [address] [phone] Health Maintenance Due Date Last Done Comments VARICELLA VACCINES (1 of 2 - 2-dose childhood series) 1993 PNEUMOCOCCAL 0-64 YEARS COMBINED SERIES (1 of 1 - 1998 PPSV23) DTaP,Tdap,and Td Vaccines (1 - Tdap) 2003 INFLUENZA VACCINE (#1) 2019 documented as of this encounter Results Not on filedocumented in this encounter Visit Diagnoses Diagnosis Chronic pain due to trauma Anxiety Anxiety state, unspecified Attention deficit disorder (ADD) without hyperactivity documented in this encounter Insurance Payer Benefit Plan / Subscriber ID Effective Phone Address T ype Group Dates [employer] [id number] 2016-Pre [phone] [employer] sent [phone] [facility] , [address] [place] [address] documented as of this encounter
--- OUTSIDE RECORDS SUMMARY | 2020-03-10 21:52 | XMS REPORT | Summary of Care ---
:1990 Author Organization [facility] Address [address] [place] [address] Care Team Providers Name Role Phone MD Dg Primary Care Provider Reason for Visit Reason Comments Error Encounter Details Date Type Department Care Team Description 03/01/2020 Telemedicine Visit [facility] Thomas Conte ERRON EOUS Pediatric and Adult ENCOUNTER--DISREGAR Primary Care- [address] (Primary D x) [address] [place], [place] , [address] [address] [place], [place] [phone] [address] Allergies No Known Allergiesdocumented as of this encounter (statuses as of 03/01/2020) Medications Medication Sig Dispensed Refills Start Date End Date Status naproxen 500 mg Take 1 tablet by 20 tablet 0 01/23/2020 Active tabletIndications: Rib mouth 2 (two) pain on right side times daily with meals. ALPRAZolam 2 mg Take 1 tablet by 90 tablet 1 01/29/2020 Active tabletIndications: mouth 3 (three) Anxiety times daily as needed for Sleep. dextroamphetamine-amphe Take 1 tablet by 60 tablet 0 0 Active tamine (ADDERALL) 20 mg mouth 2 (two) tabletIndications: times daily. Attention deficit disorder (ADD) without hyperactivity carisoprodoL 350 mg Take 1 tablet by 60 tablet 1 01/29/2020 Active tabletIndications: mouth 2 (two) Chronic pain due to times daily as trauma needed for Pain (scale 4-6). HYDROcodone-acetaminoph Take 1 tablet by 150 tablet 0 02/24/20 20 Active en 10-325 mg mouth every 4 tabletIndications: (four) hours as Chronic pain due to needed for Pain trauma (scale 4-6). documented as of this encounter (statuses as of 03/01/2020) Active Problems Problem Noted Date Hematemesis 12/19/2019 Hematemesis with nausea 12/18/2019 Overview: Added automatically from request for rona betsy [id number] Hematemesis without nausea 12/18/2019 Overview: Added automatically from request for rona betsy [id number] Attention deficit disorder (ADD) without hyperactivity 07/29/2017 Dehydration 03/09/2016 Anxiety 08/18/2015 Chronic pain due to injury 08/18/2015 documented as of this encounter (statuses as of 03/01/2020) Social History Tobacco Use Types Packs/Day Years [...] Signs Not on filedocumented in this encounter Progress Notes Thomas Conte MD - 03/01/2020 10:15 AM CDTPatient did not answer today. Voice mail not set up. documented in this encounter Plan of Treatment Health Maintenance Due Date Last Done Comments VARICELLA VACCINES (1 of 2 - 2-dose childhood series) 1993 PNEUMOCOCCAL 0-64 YEARS COMBINED SERIES (1 of 1 - 1998 PPSV23) DTaP,Tdap,and Td Vaccines (1 - Tdap) 2003 INFLUENZA VACCINE (Season Ended) 2020 documented as of this encounter Results Not on filedocumented in this encounter Visit Diagnoses Diagnosis ERRONEOUS ENCOUNTER--DISREGARD - Primary documented in this encounter
--- OUTSIDE RECORDS SUMMARY | 2020-03-10 21:52 | XMS REPORT | Summary of Care ---
:1990 Author Organization [facility] Address [address] [place] [address] Care Team Providers Name Role Phone MD Dg Primary Care Provider Reason for Visit Reason Comments Refill Request Encounter Details Date Type Department Care Team Description 01/26/2020 Refill [facility] Family Medicine Thomas Siegel MD Refill Request - [address] [address] [place] [address] [phone] Allergies No Known Allergiesdocumented as of this encounter (statuses as of 01/27/2020) Medications Medication Sig Dispensed Refills Start Date [...] as of this encounter (statuses as of 01/27/2020) Active Problems Problem Noted Date Hematemesis 12/19/2019 Hematemesis with nausea 12/18/2019 Overview: Added automatically from request for rona betsy [id number] Hematemesis without nausea 12/18/2019 Overview: Added automatically from request for rona betsy [id number] Attention deficit disorder (ADD) without hyperactivity 07/29/2017 Dehydration 03/09/2016 Anxiety 08/18/2015 Chronic pain due to injury 08/18/2015 documented as of this encounter (statuses as of 01/27/2020) Social History Tobacco Use Types Packs/Day Years [...] Telemedicine Visit Family Medicine Med Conte MD [address] [place] [address] [phone] Health Maintenance Due Date Last Done [...] Address T ype Group Dates [employer] [id number] 2016-Pre [phone] [employer] [facility] [facility] sent [phone] [facility] , [address] [place] [address] documented as of this encounter
--- OUTSIDE RECORDS SUMMARY | 2020-03-10 21:52 | XMS REPORT | Summary of Care ---
:1990 Author Organization [facility] Address [address] [place] [address] Care Team Providers Name Role Phone MD gD Primary Care Provider Reason for Visit Reason Comments Refill Request Encounter Details Date Type Department Care Team Description 02/22/2020 Refill [facility] Family Medicine Thomas Siegel MD Refill Request - [address] [address] [place] [address] [phone] Allergies No Known Allergiesdocumented as of this encounter (statuses as of 02/23/2020) Medications Medication Sig Dispensed Refills Start Date End Date Status naproxen 500 mg Take 1 tablet by 20 tablet 0 01/23/2020 Active tabletIndications: Rib mouth 2 (two) pain on right side times daily with meals. HYDROcodone-acetaminoph Take 1 tablet by 150 tablet 0 01/29/20 20 Active en 10-325 mg mouth every 4 tabletIndications: (four) hours as Chronic pain due to needed for Pain trauma (scale 4-6). ALPRAZolam 2 mg Take 1 [...] as of this encounter (statuses as of 02/23/2020) Active Problems Problem Noted Date Hematemesis 12/19/2019 Hematemesis with nausea 12/18/2019 Overview: Added automatically from request for rona betsy [id number] Hematemesis without nausea 12/18/2019 Overview: Added automatically from request for rona betsy [id number] Attention deficit disorder (ADD) without hyperactivity 07/29/2017 Dehydration 03/09/2016 Anxiety 08/18/2015 Chronic pain due to injury 08/18/2015 documented as of this encounter (statuses as of 02/23/2020) Social History Tobacco Use Types Packs/Day Years [...] Telemedicine Visit Family Medicine Med Conte MD [address] [place] [phone] Health Maintenance Due Date Last Done [...] / Subscriber ID Effective Phone Address T [facility] Group Dates BEACON BE[employer]ON [id number] 2016-Pre [phone] [employer] sent [phone] [facility] , [address] [place] [address] documented as of this encounter
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
--- OUTSIDE RECORDS SUMMARY | 2020-03-10 21:52 | XMS REPORT | Summary of Care ---
:1990 Author Organization [facility] Address [address] [place] [address] Care Team Providers Name Role Phone MD Dg Primary Care Provider Reason for Visit Reason Comments Refill Request Encounter Details Date Type Department Care Team Description 03/08/2020 Refill [facility] Family Medicine Thomas Siegel MD Refill Request - [address] [address] [place] [address] [phone] Allergies No Known Allergiesdocumented as of this encounter (statuses as of 03/08/2020) Medications Medication Sig Dispensed Refills Start Date End Date Status naproxen 500 mg Take 1 tablet by 20 tablet 0 01/23/2020 Active tabletIndications: Rib mouth 2 (two) pain on right side times daily with meals. carisoprodoL 350 mg Take 1 tablet by [...] ALPRAZolam 2 mg Take 1 tablet by 120 tablet 1 03/01/2020 Active tabletIndications: mouth 4 (four) Anxiety times daily as needed for Anxiety. documented as of this encounter (statuses as of 03/08/2020) Active Problems Problem Noted Date Hematemesis 12/19/2019 Hematemesis with nausea 12/18/2019 Overview: Added automatically from request for rona betsy [id number] Hematemesis without nausea 12/18/2019 Overview: Added automatically from request for rona betsy [id number] Attention deficit disorder (ADD) without hyperactivity 07/29/2017 Dehydration 03/09/2016 Anxiety 08/18/2015 Chronic pain due to injury 08/18/2015 documented as of this encounter (statuses as of 03/08/2020) Social History Tobacco Use Types Packs/Day Years [...] filedocumented in this encounter Plan of Treatment Health [...] Address T ype Group Dates [employer] [id number] 2016-Pre [phone] [facility] sent [phone] [facility] , [address] [place] [address] documented as of this encounter
--- OUTSIDE RECORDS SUMMARY | 2020-03-10 21:52 | XMS REPORT | Summary of Care ---
:1990 Author Organization [facility] Address [address] [place] [address] Care Team Providers Name Role Phone MD Dg Primary Care Provider Reason for Visit Reason Comments Refill Request Encounter Details Date Type Department Care Team Description 01/26/2020 Refill [facility] Family Medicine Thomas Siegel MD Refill Request - [address] [address] [place] [address] [phone] Allergies No Known Allergiesdocumented as of this [...] Added automatically from request for rona betsy [id number] Hematemesis without nausea 12/18/2019 Overview: Added automatically from request for rona betsy [id number] Attention deficit disorder (ADD) without hyperactivity 07/29/2017 [...] Telemedicine Visit Family Medicine Med Conte MD [address] [place] [address] [phone] Health Maintenance Due Date Last Done [...] Address T ype Group Dates [employer] [id number] 2016-Pre [phone] [facility] sent [phone] [facility] , [address] [place] [address] documented as of this encounter
--- OUTSIDE RECORDS SUMMARY | 2020-03-10 21:52 | XMS REPORT | Summary of Care ---
:1990 Author Organization [facility] Address [address] [place] [address] Care Team Providers Name Role Phone MD Dg Primary Care Provider Reason for Visit Reason Comments Rx Concern/Question Encounter Details Date Type Department Care Team Description 02/12/[address] [facility] Family Med Conte MD Rx Concern/Question Medicine - [address] [phone] Allergies No Known Allergiesdocumented as of this encounter (statuses as of 02/12/2020) Medications Medication Sig Dispensed Refills Start Date [...] as of this encounter (statuses as of 02/12/2020) Active Problems Problem Noted Date Hematemesis 12/19/2019 Hematemesis with nausea 12/18/2019 Overview: Added automatically from request for rona betsy [id number] Hematemesis without nausea 12/18/2019 Overview: Added automatically from request for rona betsy [id number] Attention deficit disorder (ADD) without hyperactivity 07/29/2017 Dehydration 03/09/2016 Anxiety 08/18/2015 Chronic pain due to injury 08/18/2015 documented as of this encounter (statuses as of 02/12/2020) Social History Tobacco Use Types Packs/Day Years [...] Telemedicine Visit Family Medicine Med Conte MD [address] [place] [address] [phone] Health Maintenance Due Date Last Done [...] Address T ype Group Dates [employer] [id number] 2016-Pre [phone] [facility] sent [phone] [facility] , [address] [place] [address] documented as of this encounter
--- OUTSIDE RECORDS SUMMARY | 2020-03-10 21:52 | XMS REPORT | Summary of Care ---
:1990 Author Organization [facility] Address [address] [place] [address] Care Team Providers Name Role Phone MD Dg Primary Care Provider Reason for Visit Reason Comments Refill Request Encounter Details Date Type Department Care Team Description 02/26/2020 Refill [facility] Family Medicine Thomas Siegel MD Refill Request - [address] [address] [place] [address] [phone] Allergies No Known Allergiesdocumented as of this encounter (statuses as of 02/26/2020) Medications Medication Sig Dispensed Refills Start Date [...] as of this encounter (statuses as of 02/26/2020) Active Problems Problem Noted Date Hematemesis 12/19/2019 Hematemesis with nausea 12/18/2019 Overview: Added automatically from request for rona betsy [id number] Hematemesis without nausea 12/18/2019 Overview: Added automatically from request for rona betsy [id number] Attention deficit disorder (ADD) without hyperactivity 07/29/2017 Dehydration 03/09/2016 Anxiety 08/18/2015 Chronic pain due to injury 08/18/2015 documented as of this encounter (statuses as of 02/26/2020) Social History Tobacco Use Types Packs/Day Years [...] Telemedicine Visit Family Medicine Med Conte MD [address] [place] [phone] Health Maintenance Due Date Last Done [...] Address T e Group Dates [employer] [id number] 2016-Pre [phone] [facility] sent [phone] [facility] , [address] [place] [address] documented as of this encounter
--- OUTSIDE RECORDS SUMMARY | 2020-03-10 21:52 | XMS REPORT | Summary of Care ---
:1990 Author Organization [facility] Address [address] [place] [address] Care Team Providers Name Role Phone MD Dg Primary Care Provider Reason for Referral (Routine) Status Reason Specialty Diagnoses / Referred By Referred To Contact Procedures Contact New Request Neurology Diagnoses Seizure Thomas Conte [place], [place] Procedures CONSULT/REFERRAL NEUROLOGY MD Bonifacio MD [address] [place] [address] X [phone] Phone: Phone: Reason for Visit Reason Comments Rx Concern/Question Encounter Details Date Type Department Care Team Description 03/02/2020 Telephone [facility] Family Med Conte MD Rx Concern/Question Medicine - [address] [phone] Allergies No Known Allergiesdocumented as of this encounter (statuses as of 03/02/2020) Medications Medication Sig Dispensed Refills Start Date [...] as of this encounter (statuses as of 03/02/2020) Active Problems Problem Noted Date Hematemesis 12/19/2019 Hematemesis with nausea 12/18/2019 Overview: Added automatically from request for rona betsy [id number] Hematemesis without nausea 12/18/2019 Overview: Added automatically from request for rona betsy [id number] Attention deficit disorder (ADD) without hyperactivity 07/29/2017 Dehydration 03/09/2016 Anxiety 08/18/2015 Chronic pain due to injury 08/18/2015 documented as of this encounter (statuses as of 03/02/2020) Social History Tobacco Use Types Packs/Day Years [...] filedocumented in this encounter Visit Diagnoses Diagnosis Seizure - Primary Other convulsions documented in this encounter Insurance Payer Benefit Plan / Subscriber ID Effective Phone Address T caitlyne Group Dates [employer] [id number] 2016-Pre [phone] [facility] sent [phone] [facility] , [address] [place] [address] documented as of this encounter
--- OUTSIDE RECORDS SUMMARY | 2020-03-10 21:52 | XMS REPORT | Summary of Care ---
:1990 Author Organization [facility] Address [address] [place] [address] Care Team Providers Name Role Phone MD Dg Primary Care Provider Reason for Visit Reason Comments Notification Encounter Details Date Type Department Care Team Description 03/01/2020 Telephone [facility] Family Medicine Thomas Siegel MD Notification - [address] [address] [place] [address] [phone] Allergies No Known Allergiesdocumented as of this [...] Added automatically from request for rona betsy [id number] Hematemesis without nausea 12/18/2019 Overview: Added automatically from request for rona betsy [id number] Attention deficit disorder (ADD) without hyperactivity 07/29/2017 [...] Address T ype Group Dates [employer] [id number] 2016-Pre [phone] [facility] sent [phone] [facility] , [address] [place] [address] documented as of this encounter
--- OUTSIDE RECORDS SUMMARY | 2020-03-10 21:52 | XMS REPORT | Summary of Care ---
:1990 Author Organization [facility] Address [address] [place] [address] Care Team Providers Name Role Phone MD Dg Primary Care Provider Reason for Visit Reason Comments Refill Request Encounter Details Date Type Department Care Team Description 01/28/2020 Refill [facility] Family Medicine Thomas Siegel MD Refill Request - [address] [address] [place] [address] [phone] Allergies No Known Allergiesdocumented as of this encounter (statuses as of 01/29/2020) Medications Medication Sig Dispensed Refills Start Date End Date Status pantoprazole 40 mg Take 1 58 tablet 0 12/20/2019 Active EC tablet by 0 tabletIndications: mouth 2 Hematemesis with (two) times nausea, Hematemesis daily for without nausea 14 days, THEN 1 tablet daily for 30 days. naproxen 500 mg Take 1 20 tablet 0 01/23/2020 Act tasha tabletIndications: tablet by Rib pain on right mouth 2 side (two) times daily with meals. HYDROcodone-acetami Take 1 150 tablet 0 01/29/2020 Active nophen 10-325 mg tablet by tabletIndications: mouth every Chronic pain due to 4 (four) trauma hours as needed for Pain (scale 4-6). ALPRAZolam [...] 4-6). dextroamphetamine-a Take 1 60 tablet 0 12/30/2019 Discontinued mphetamine tablet by 0 (Reorder) (ADDERALL) 20 mg mouth 2 tabletIndications: (two) times Attention deficit daily. disorder (ADD) without hyperactivity carisoprodoL 350 mg Take 1 60 tablet 1 12/30/2019 Discontinued tabletIndications: tablet by 0 ( Reorder) Chronic pain due to mouth 2 trauma (two) times daily as needed for Pain (scale 4-6). ALPRAZolam 2 mg Take 1 90 tablet 1 12/30/2019 Dis continued tabletIndications: tablet by 0 ( Reorder) Anxiety mouth 3 (three) times daily as needed for Sleep. HYDROcodone-acetami Take 1 150 tablet 0 12/31/2019 01/29/20 2 Discontinued nophen 10-325 mg tablet by 0 (Re order) tabletIndications: mouth every Chronic pain due to 4 (four) trauma hours as needed for Pain (scale 4-6). documented as of this encounter (statuses as of 01/29/2020) Active Problems Problem Noted Date Hematemesis 12/19/2019 Hematemesis with nausea 12/18/2019 Overview: Added automatically from request for rona betsy [id number] Hematemesis without nausea 12/18/2019 Overview: Added automatically from request for rona betsy [id number] Attention deficit disorder (ADD) without hyperactivity 07/29/2017 Dehydration 03/09/2016 Anxiety 08/18/2015 Chronic pain due to injury 08/18/2015 documented as of this encounter (statuses as of 01/29/2020) Social History Tobacco Use Types Packs/Day Years [...] Telemedicine Visit Family Medicine Med Conte MD [address] [place] [place] [phone] Health Maintenance Due Date Last Done [...] Address T ype Group Dates [employer] [id number] 2016-Pre [phone] [facility] sent [phone] [facility] , [address] [place] [address] documented as of this encounter
--- OUTSIDE RECORDS SUMMARY | 2020-03-10 21:52 | XMS REPORT | Summary of Care ---
:1990 Author Organization [facility] Address [address] [place] [address] Care Team Providers Name Role Phone MD Dg Primary Care Provider Reason for Visit Reason Comments Refill Request Encounter Details Date Type Department Care Team Description 02/25/2020 Refill [facility] Family Medicine Thomas Siegel MD Refill Request - [address] [address] [place] [address] [phone] Allergies No Known Allergiesdocumented as of this encounter (statuses as of 02/25/2020) Medications Medication Sig Dispensed Refills Start Date [...] as of this encounter (statuses as of 02/25/2020) Active Problems Problem Noted Date Hematemesis 12/19/2019 Hematemesis with nausea 12/18/2019 Overview: Added automatically from request for rona betsy [id number] Hematemesis without nausea 12/18/2019 Overview: Added automatically from request for rona betsy [id number] Attention deficit disorder (ADD) without hyperactivity 07/29/2017 Dehydration 03/09/2016 Anxiety 08/18/2015 Chronic pain due to injury 08/18/2015 documented as of this encounter (statuses as of 02/25/2020) Social History Tobacco Use Types Packs/Day Years [...] Telemedicine Visit Family Medicine Med Conte MD [address] [place] [phone] Health Maintenance Due Date Last Done [...] Address T e Group Dates [employer] [id number] 2016-Pre [phone] [facility] sent [phone] [facility] , [address] [place] [address] documented as of this encounter
[2020-03-10] MEDS ORDERED: MORPHINE 4 MG/ML SYR ONE (22:00)
[2020-03-10 22:55] LABS: Urine Blood NEGATIVE (NEG); Urine Glucose NEGATIVE (NEG); Urine Protein 1+ (NEG); Urine Specific Gravity >1.030 (1.005-1.030); Urine pH 5.5 (5.0-7.0)
[2020-03-11 00:18] VITALS: TEMP 98.2
[2020-03-11 00:22] VITALS: BP 115/75; O2SAT 98
--- NOTE | 2020-03-11 07:42 | RAD REPORT ---
EXAM DESCRIPTION: RAD - Hand Right 3 View - 03/10/2020 8:56 pm CLINICAL HISTORY: trauma COMPARISON: Hand Right 3 View dated 08/02/2019; Hand Right 3 View dated 04/14/2014None. FINDINGS: Lateral view shows soft tissue swelling over the dorsum of the hand at the MCP joint level . Film artifacts are present overlying the ventral soft tissues. Within the dorsal soft tissue swelli ng there is a small linear finding that is isodense to bone. A small bone avulsion is possible. No hi story of penetrating injury to the skin surface. No other fracture deformity seen. The small suspected bone avulsion is not identifiable on either the AP projection or oblique projection. The second metacarpal is suspected as the origin given the hist ory. There is no dislocation or periosteal reaction noted. A foreign body is not suspected. IMPRESSION: Suspected small bone avulsion from the dorsal margin of the hand, probably head of the s econd metacarpal. Film artifacts are present. True foreign body is not suspected.
--- NOTE | 2020-03-11 07:42 | RAD REPORT ---
EXAM DESCRIPTION: RAD - Wrist Left 3 View - 03/10/2020 8:56 pm CLINICAL HISTORY: trauma, fall, hand pain, wrist pain COMPARISON: Wrist Left 3 View dated 05/19/2015 FINDINGS: No fracture is identified. There is no dislocation or periosteal reaction noted. No foreig n body or other soft tissue abnormality. IMPRESSION: Negative left wrist examination.
--- NOTE | 2020-03-11 14:52 | RAD REPORT ---
EXAM DESCRIPTION: US - Scrotum Testicles - 03/10/2020 10:28 pm CLINICAL HISTORY: Scrotal pain. COMPARISON: None. TECHNIQUE: Grayscale and doppler sonogram of the testicles. FINDINGS: Testes: Measurements: --Right: 4. 2 x 2 x 2.9 cm. --Left: 4.4 x 2.1 x 2.9 cm. Grayscale appearance: Normal and symmetric. Doppler flow: Normal and symmetric. Epididymides: Measurements: --Right: 1 cm. --Left: 1.3 cm. Grayscale appearance: Normal and symmetric. Doppler flow: Normal and symmetric. Other: Hydrocele: Small left hydrocele. IMPRESSION: 1. No evidence of testicular torsion or epididymoorchitis. 2. Slight asymmetric enlargement of the left epididymis 3. Small left hydrocele. Electronically signed by: Kalen Thompson DO 03/10/2020 11:02 PM CDT Due to temporary technical issues with the PACS/Fluency reporting system, reports are being signed by the in house radiologist without review asa courtesy to ensure prompt reporting. The interpreting ra diologist is fully responsible for the content of the report.
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
== END 2020-03-11 00:12 | disposition home or self-care (01) ==
LOC: ER 20:10
DX: S60.212A Contusion of left wrist, initial encounter (principal); S60.031A Contusion of right middle finger without damage to nail, initial encounter; N50.811 Right testicular pain; F17.210 Nicotine dependence, cigarettes, uncomplicated; F34.1 Dysthymic disorder; W01.198A Fall on same level from slipping, tripping and stumbling with subsequent striking against other object, initial encounter; Y93.9 Activity, unspecified; Y92.89 Other specified places as the place of occurrence of the external cause; Y99.8 Other external cause status
CPT/HCPCS: 76870; 81003; 96372; 99284

== ENCOUNTER 2020-12-17 14:14 | Emergency (ER) | payer SELFPAY ==
--- OUTSIDE RECORDS SUMMARY | 2020-12-17 14:31 | XMS REPORT | Continuity of Care Document ---
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 4gm/day of acetaminop hen Hydromorpho No Notes: Jacoby hailey ne 8- (Same as: l 16:30: Dilaudid) conc = 0.5 mg/ml Hydromorph one [employer] Dose: ;Delay: ;Basal: Hydromorpho No Notes: Jacoby hailey ne 8-19 (Same as: l 16:30: Dilaudid) conc = 0.5 mg/ml 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 Hydromorpho No Notes: Jacoby hailey ne 8- Same as: l 16:19: Dilaudid Meperidine No Notes: Memor ia 8- (Same as: l 16:19: Demerol) "Use Precaution in Elderly, Seizure disorders, and Renal impairment " Ondansetron No Notes: Jacoby hailey 8-19 (Same as: l 16:19: Zofran) Midazolam No Notes: Memori a 06-01 (Same as: l 16:19: Versed) Fentanyl No Notes: Memoria 06-01 (Same as: l 16:19: Sublimaze) Preservat tasha free. Hydromorpho No Notes: Jacoby hailey ne 06-01 Same as: l 16:19: Dilaudid Meperidine No Notes: Memor ia 06-01 (Same as: l 16:19: Demerol) "Use Precaution in Elderly, Seizure disorders, and Renal impairment " Naloxone No Notes: Memoria 06-01 Same as l 16:10: Narcan Ondansetron No Notes: Jacoby hailey 06-01 (Same as: l 16:10: Zofran) Calcium No 1,000 mL, Memor ia Chloride 06-01 Rate: 125 l 0.0014 16:10: ml/hr, Jackson MEQ/ML / 00 Infuse Potassium over: 8 Chloride hr, Route: 0.004 IV, Dosing MEQ/ML / Weight 65 Sodium kg, Total Chloride Volume: 0.103 1,000, MEQ/ML / Start Sodium date: Lactate 06/01/14 0.028 11:10:00, MEQ/ML Duration: Injectable 30 day, Solution Stop date: 07/01/14 11:09:00 Naloxone No Notes: Memoria 06-01 Same as l 16:10: Narcan Ondansetron No Notes: Jacoby hailey 06-01 (Same as: l 16:10: Zofran) Calcium No 1,000 mL, Memor ia Chloride 06-01 Rate: 125 l 0.0014 16:10: ml/hr, Jackson MEQ/ML / 00 Infuse Potassium over: 8 Chloride hr, Route: 0.004 IV, Dosing MEQ/ML / Weight 65 Sodium kg, Total Chloride Volume: 0.103 1,000, MEQ/ML / Start Sodium date: Lactate 06/01/14 0.028 11:10:00, MEQ/ML Duration: Injectable 30 day, Solution Stop date: 07/01/14 11:09:00 Cefoxitin No Notes: Memori a 8-19 (Same As: l 13:00: Mefoxin) Cefoxitin No Notes: Memori a 8-19 (Same As: l 13:00: Mefoxin) Alprazolam No 2 mg = 1 Mem oria 2 MG Oral 8-15 tab, PO, l Tablet 17:06: TID, Jackson [Xanax] 00 Anxiety, 0 Refill(s) Alprazolam No 2 mg = 1 Mem oria 2 MG Oral 8-15 tab, PO, l Tablet 17:06: TID, Jackson [Xanax] 00 Anxiety, 0 Refill(s) Docusate Yes 100 mg = 1 Mem oria Sodium 100 7-31 cap, PO, l MG Oral 15:59: BID, Jackson Capsule 00 Constipati [Colace] on, # 20 cap, 0 Refill(s) Acetaminoph Yes 1-2 tab, Me moria en 325 MG / 7-31 PO, Q4-6H, l Hydrocodone 15:59: Pain, # 30 Jackson Bitartrate 00 tab, 0 10 MG Oral Refill(s) Tablet [[place] 10/325] Docusate Yes 100 mg = 1 Mem oria Sodium 100 7-31 cap, PO, l MG Oral 15:59: BID, Dusty Capsule 00 Constipati [Colace] on, # 20 cap, 0 Refill(s) Acetaminoph Yes 1-2 tab, Me moria en 325 MG / 7-31 PO, Q4-6H, l Hydrocodone 15:59: Pain, # 30 Dusty Bitartrate 00 tab, 0 10 MG Oral Refill(s) Tablet [[place] 10/325] Docusate Yes 100 mg = 1 Mem oria Sodium 100 7-31 cap, PO, l MG Oral 15:54: BID, Jackson Capsule 00 Constipati [Colace] on, # 20 cap, 0 Refill(s) Docusate Yes 100 mg = 1 Mem oria Sodium 100 7-31 cap, PO, l MG Oral 15:54: BID, Jackson Capsule 00 Constipati [Colace] on, # 20 cap, 0 Refill(s) Acetaminoph Yes 1-2 tab, Me moria en 325 MG / 05-13 PO, Q4-6H, l Hydrocodone 15:53: Pain, # 30 Dusty Bitartrate 00 tab, 0 10 MG Oral Refill(s) Tablet [[place] 10/325] Acetaminoph Yes 1-2 tab, Me moria en 325 MG / 05-13 PO, Q4-6H, l Hydrocodone 15:53: Pain, # 30 Jackson Bitartrate 00 tab, 0 10 MG Oral Refill(s) Tablet [[place] [address]] Acetaminoph No 1 tab, Jacoby hailey en 325 MG / 05-13 Route: PO, l Hydrocodone 15:24: Drug Form: Jackson Bitartrate 00 TAB, 10 MG Oral Dosing Tablet Weight [[place] 62.273, 10/325] kg, ONCE, STAT, Start date: 05/13/14 10:24:00, Stop date: 05/13/14 10:24:00 Acetaminoph No 1 tab, Jacoby hailey en 325 MG / 05-13 Route: PO, l Hydrocodone 15:24: Drug Form: Jackson Bitartrate 00 TAB, 10 MG Oral Dosing Tablet Weight [[place] 62.273, 10/325] kg, ONCE, STAT, Start date: 05/13/14 10:24:00, Stop date: 05/13/14 10:24:00 NS 1,000 mL No 1,000 mL, M emoria 05-13 Rate: 125 l 10:24: ml/hr, Dusty 00 Infuse over: 8 hr, Route: IV, Dosing Weight 62.273 kg, Total Volume: 1,000, Start date: 05/13/14 5:24:00, Duration: 30 day, Stop date: 06/12/14 5:23:00 Sodium 2013- No 1,000 mL, Memori a Chloride 05-13 1,000 l 0.154 10:24: ml/hr, Jackson MEQ/ML 00 Infuse Injectable Over: 1 Solution hr, Route: IV, ONCE, Priority: STAT, Dosing Weight 62.273 kg, Start date: 05/13/14 5:24:00, Duration: 1 doses or times, Stop date: 05/13/14 5:24:00 NS 1,000 mL 2013-0 No 1,000 mL, M luisa 05-13 Rate: 125 l 10:24: ml/hr, Jackson 00 Infuse over: 8 hr, Route: IV, Dosing Weight 62.273 kg, Total Volume: 1,000, Start date: 05/13/14 5:24:00, Duration: 30 day, Stop date: 06/12/14 5:23:00 Sodium 2013-0 No 1,000 mL, Memori a Chloride 05-13 1,000 l 0.154 10:24: ml/hr, Jackson MEQ/ML 00 Infuse Injectable Over: 1 Solution hr, Route: IV, ONCE, Priority: STAT, Dosing Weight 62.273 kg, Start date: 05/13/14 5:24:00, Duration: 1 doses or times, Stop date: 05/13/14 5:24:00 Morphine 2013-0 No Notes: Memoria 7-31 (Same l 09:32: as:MORPhin [place] 00 e Sulfate) Morphine 2013-0 No Notes: Memoria 7-31 (Same l 09:32: as:MORPhin Dusty 00 e Sulfate) Morphine 2013-0 No 4 mg, Memoria 7-31 Route: l 08:08: IVP, Drug Jackson 00 form: INJ, ONCE, Dosing Weight 62.273, kg, Priority: STAT, Start date: 05/13/14 3:08:00, Stop date: 05/13/14 3:08:00 Morphine 2014-0 No 4 mg, Memoria 7-31 Route: l 08:08: IVP, Drug Dusty 00 form: INJ, ONCE, Dosing Weight 62.273, kg, Priority: STAT, Start date: 05/13/14 3:08:00, Stop date: 05/13/14 3:08:00 Morphine 2014-0 No 8 mg, Memoria 7-23 Route: l 20:53: IVP, ONCE, Dusty 00 Dosing Weight 62.273, kg, Start date: 05/05/14 15:53:00, Stop date: 05/05/14 15:53:00 Morphine 2014-0 No 8 mg, Memoria 7-23 Route: l 20:53: IVP, ONCE, Jackson 00 Dosing Weight 62.273, kg, Start date: 05/05/14 15:53:00, Stop date: 05/05/14 15:53:00 Iohexol No Notes: Memoria 05-05 (Same l 16:08: as:Omnipaq Dusty 00 ue 350). Iohexol No Notes: Memoria 05-05 (Same l 16:08: as:Omnipaq Dusty 00 ue 350). Morphine No 6 mg, Memoria 05-05 Route: l 12:45: IVP, Drug Jackson form: INJ, ONCE, Dosing Weight 62.273, kg, Priority: STAT, Start date: 05/05/14 7:45:00, Stop date: 05/05/14 7:45:00 Morphine No 6 mg, Memoria 05-05 Route: l 12:45: IVP, Drug Jackson 00 form: INJ, ONCE, Dosing Weight 62.273, kg, Priority: STAT, Start date: 05/05/14 7:45:00, Stop date: 05/05/14 7:45:00 Acetaminoph Yes 1 tab, PO, Memoria en 325 MG / 05-05 Q4H, as l Hydrocodone 12:43: needed for Dusty Bitartrate 00 pain 10 MG Oral Tablet Acetaminoph Yes 1 tab, PO, Memoria en 325 MG / -23 Q4H, as l Hydrocodone 12:43: needed for Dusty Bitartrate 00 pain 10 MG Oral Tablet Calcium No 1,000 mL, Memor ia Chloride 05-05 1,000 l 0.0014 10:31: ml/hr, Dusty MEQ/ML / 00 Infuse Potassium Over: 1 Chloride hr, Route: 0.004 IV, 1,000, MEQ/ML / Drug form: Sodium INJ, ONCE, Chloride Priority: 0.103 STAT, MEQ/ML / Dosing Sodium Weight Lactate 62.273 kg, 0.028 Start MEQ/ML date: Injectable 05/05/14 Solution 5:31:00, Duration: 1 doses or times, Stop date: 05/05/14 5:31:00 Morphine 0 No Notes: Memoria 05-05 (Same l 10:31: as:MORPhin Dusty 00 e Sulfate) Calcium No 1,000 mL, Memor ia Chloride 05-05 1,000 l 0.0014 10:31: ml/hr, Jackson MEQ/ML / 00 Infuse Potassium Over: 1 Chloride hr, Route: 0.004 IV, 1,000, MEQ/ML / Drug form: Sodium INJ, ONCE, Chloride Priority: 0.103 STAT, MEQ/ML / Dosing Sodium Weight Lactate 62.273 kg, 0.028 Start MEQ/ML date: Injectable 05/05/14 Solution 5:31:00, Duration: 1 doses or times, Stop date: 05/05/14 5:31:00 Morphine No Notes: Memoria 05-05 (Same l 10:31: as:MORPhin Dusty 00 e Sulfate) D5W 1/2NS + No Notes: Jacoby hailey KCL 20mEq/L 05-05 PREMIX IV l 1000ml 09:43: - Do Not Jackson (Premix) 00 Alter 1,000 mL D5W 1/2NS + No Notes: Jacoby hailey KCL 20mEq/L 23 PREMIX IV l 1000ml 09:43: - Do Not Dusty (Premix) 00 Alter 1,000 mL Lovenox No Notes: Memoria 05-05 (Same as: l 09:42: Lovenox) Jackson 00 Lovenox No Notes: Memoria 05-05 (Same as: l 09:42: Lovenox) Jackson 00 Acetaminoph No Notes: Do M emoria en 325 MG / 05-05 not exceed l Hydrocodone 09:40: 4gm/day of Jackson Bitartrate 00 acetaminop 10 MG Oral hen. Tablet (Same as: [place] 325/10) Morphine No Notes: Memoria 05-05 (Same l 09:40: as:MORPhin Dusty 00 e Sulfate) Docusate No Notes: Memoria 05-05 (Same as: l 09:40: Colace) Dusty 00 (Do Not Crush) Acetaminoph No Notes: Do M emoria en 325 MG / 05-05 not exceed l Hydrocodone 09:40: 4gm/day of Dusty Bitartrate 00 acetaminop 10 MG Oral hen. Tablet (Same as: [place] 325/10) Morphine No Notes: Memoria 05-05 (Same l 09:40: as:MORPhin Dusty 00 e Sulfate) Docusate No Notes: Memoria 05-05 (Same as: l 09:40: Colace) Dusty 00 (Do Not Crush) Morphine 2013- No 8 mg, Memoria 05-05 Route: l 08:07: IVP, Drug Dusty 00 form: INJ, ONCE, Dosing Weight 62.273, kg, Priority: STAT, Start date: 05/05/14 3:07:00, Stop date: 05/05/14 3:07:00 Morphine 2013- No 8 mg, Memoria 05-05 Route: l 08:07: IVP, Drug Jackson 00 form: INJ, ONCE, Dosing Weight 62.273, kg, Priority: STAT, Start date: 05/05/14 3:07:00, Stop date: 05/05/14 3:07:00 Sodium 2013-0 No 1,000 mL, Memori a Chloride 7-23 1,000 l 0.154 07:40: ml/hr, Dusty MEQ/ML 00 Infuse Injectable Over: 1 Solution hr, Route: IV, 1,000, Drug form: INJ, ONCE, Priority: STAT, Dosing Weight 62.273 kg, Start date: 05/05/14 2:40:00, Duration: 1 doses or times, Stop date: 05/05/14 2:40:00 Sodium 2013-0 No 1,000 mL, Memori a Chloride 7-23 1,000 l 0.154 07:40: ml/hr, Jackson MEQ/ML 00 Infuse Injectable Over: 1 Solution hr, Route: IV, 1,000, Drug form: INJ, ONCE, Priority: STAT, Dosing Weight 62.273 kg, Start date: 05/05/14 2:40:00, Duration: 1 doses or times, Stop date: 05/05/14 2:40:00 Sodium 2013-0 No 1,000 mL, Memori a Chloride 7-23 1,000 l 0.154 07:39: ml/hr, Jackson MEQ/ML 00 Infuse Injectable Over: 1 Solution hr, Route: IV, ONCE, Priority: STAT, Dosing Weight 62.273 kg, Start date: 05/05/14 2:39:00, Duration: 1 doses or times, Stop date: 05/05/14 2:39:00 Sodium No 1,000 mL, Memori a Chloride 05-05 1,000 l 0.154 07:39: ml/hr, Dusty MEQ/ML 00 Infuse Injectable Over: 1 Solution hr, Route: IV, ONCE, Priority: STAT, Dosing Weight 62.273 kg, Start date: 05/05/14 2:39:00, Duration: 1 doses or times, Stop date: 05/05/14 2:39:00 Morphine No Notes: Memoria 05-05 (Same l 07:26: as:MORPhin Jackson 00 e Sulfate) Morphine No Notes: Memoria 05-05 (Same l 07:26: as:MORPhin [place] 00 e Sulfate) Zofran No Notes: Memoria 05-05 (Same as: l 07:23: Zofran) Dilaudid No 1 mg, Memoria 05-05 Route: IV, l 07:23: ONCE, Dosing Weight 62.273, kg, Start date: 05/05/14 2:23:00, Stop date: 05/05/14 2:23:00 Zofran No Notes: Memoria 05-05 (Same as: l 07:23: Zofran) Dilaudid No 1 mg, Memoria 05-05 Route: IV, l 07:23: ONCE, Dosing Weight 62.273, kg, Start date: 05/05/14 2:23:00, Stop date: 05/05/14 2:23:00 Acetaminoph Yes 1-2 tabs, M emoria en 325 MG / 04-21 PO, Q6H, l Hydrocodone 15:20: as needed H ermann Bitartrate 00 for pain, 5 MG Oral # 50 tab, Tablet 0 [[place] Refill(s) 5/325] Acetaminoph Yes 1-2 tabs, M emoria en 325 MG / 04-21 PO, Q6H, l Hydrocodone 15:20: as needed H ermann Bitartrate 00 for pain, 5 MG Oral # 50 tab, Tablet 0 [[place] Refill(s) 5/325] Rocephin No 1 gm, Memoria 02-12 Route: IV, l 15:48: ONCE, Dosing Weight 59.091, kg, Start date: 02/12/14 10:48:00, Stop date: 02/12/14 10:48:00 Rocephin No 1 gm, Memoria 02-12 Route: IV, l 15:48: ONCE, Dosing Weight 59.091, kg, Start date: 02/12/14 10:48:00, Stop date: 02/12/14 10:48:00 Ibuprofen No Notes: Memori a 4-28 (Same as: l 21:00: Advil) Dusty 00 Give with food. Acetaminoph No Notes: Max Memoria en 4-28 acetaminop l 21:00: hen 4000 Dusty 00 mg/day (4 gm/day). (Same as: Tylenol Extra Strength) Ibuprofen No Notes: Memori a 4-28 (Same as: l 21:00: Advil) Jackson 00 Give with food. Acetaminoph No Notes: Max Memoria en 4-28 acetaminop l 21:00: hen 4000 Dusty 00 mg/day (4 gm/day). (Same as: Tylenol Extra Strength) D5W 1/2NS + No 1,000 mL, M emoria KCL 20mEq/L 02-08 Rate: 100 l 1000ml 10:57: ml/hr, Jackson (Premix) 00 Infuse 1000 mL over: 10 hr, Route: IV, Dosing Weight 61.364 kg, Total Volume: 1,000, Start date: 02/08/14 5:57:00, Duration: 30 day, Stop date: 03/10/14 5:56:00 D5W 1/2NS + No 1,000 mL, M emoria KCL 20mEq/L 02-08 Rate: 100 l 1000ml 10:57: ml/hr, Jackson (Premix) 00 Infuse 1000 mL over: 10 hr, Route: IV, Dosing Weight 61.364 kg, Total Volume: 1,000, Start date: 02/08/14 5:57:00, Duration: 30 day, Stop date: 03/10/14 5:56:00 Flagyl No Notes: Memoria 02-07 (Same as: l 22:00: Flagyl) Jackson Take with food/ avoid alcohol Ciprofloxac No Notes: Do M emoria in 02-07 not l 22:00: refrigerat Jackson e Flagyl No Notes: Memoria 02-07 (Same as: l 22:00: Flagyl) Dusty Take with food/ avoid alcohol Ciprofloxac No Notes: Do M emoria in 02-07 not l 22:00: refrigerat Jackson e Methadone No 20 mg, 2 Jacoby hailey 4-27 tab, l 17:42: Route: PO, Dusty 00 Drug form: TAB, Q12H, Dosing Weight 61.364, kg, Priority: NOW, Start date: 02/07/14 12:42:00, Duration: 30 day, Stop date: 03/09/14 9:00:00 Methadone No 20 mg, 2 Jacoby hailey 4-27 tab, l 17:42: Route: PO, Jackson 00 Drug form: TAB, Q12H, Dosing Weight 61.364, kg, Priority: NOW, Start date: 02/07/14 12:42:00, Duration: 30 day, Stop date: 03/09/14 9:00:00 methadone Yes 10 mg = 1 Mem oria 10 mg oral 4-27 tab, PO, l tablet 16:01: Q6H, Pain, Kathy nn 00 0 Refill(s) Carisoprodo Yes 350 mg = 1 Memoria l 350 MG 4-27 tab, PO, l Oral Tablet 16:01: Daily, 0 He rmann [Soma] 00 Refill(s) Acetaminoph Yes 1 tab, PO, Memoria en 325 MG / 4-27 BID, 0 l Hydrocodone 16:01: Refill(s) H ermann Bitartrate 00 10 MG Oral Tablet [[place] 10/325] methadone Yes 10 mg = 1 Mem oria 10 mg oral 4-27 tab, PO, l tablet 16:01: Q6H, Pain, Kathy nn 00 0 Refill(s) Carisoprodo Yes 350 mg = 1 Memoria l 350 MG 4-27 tab, PO, l Oral Tablet 16:01: Daily, 0 He rmann [Soma] 00 Refill(s) Acetaminoph Yes 1 tab, PO, Memoria en 325 MG / 4-27 BID, 0 l Hydrocodone 16:01: Refill(s) H ermann Bitartrate 00 10 MG Oral Tablet [[place] 10/325] Acetaminoph No 1,000 mg, M emoria en 02-07 2 tab, l 15:27: Route: PO, Dusty 00 Drug form: TAB, Q6H, Dosing Weight 61.364, kg, PRN as needed for pain, Start date: 02/07/14 10:27:00, Duration: 30 day, Stop date: 03/09/14 10:26:00 Acetaminoph No 1,000 mg, M emoria en 02-07 2 tab, l 15:27: Route: PO, Jackson 00 Drug form: TAB, Q6H, Dosing Weight 61.364, kg, PRN as needed for pain, Start date: 02/07/14 10:27:00, Duration: 30 day, Stop date: 03/09/14 10:26:00 Enoxaparin No Notes: Memor ia - (Same as: l 14:00: Lovenox) Enoxaparin No Notes: Memor ia - (Same as: l 14:00: Lovenox) Sodium Yes 1,000 mL, Memori a Chloride 02-07 1,000 l 0.154 12:30: ml/hr, MEQ/ML 00 Infuse Injectable Over: 1 Solution hr, Route: IV, 1,000, Drug form: INJ, ONCE, Priority: STAT, Dosing Weight 61.364 kg, Start date: 02/07/14 7:30:00, Duration: 1 doses or times, Stop date: 02/07/14 7:30:00 Sodium Yes 1,000 mL, Memori a Chloride 4-27 1,000 l 0.154 12:30: ml/hr, Jackson MEQ/ML 00 Infuse Injectable Over: 1 Solution hr, Route: IV, 1,000, Drug form: INJ, ONCE, Priority: STAT, Dosing Weight 61.364 kg, Start date: 02/07/14 7:30:00, Duration: 1 doses or times, Stop date: 02/07/14 7:30:00 Tramadol No Notes: Not Mem oria -27 to exceed l 12:18: 400mg/day. Jackson 00 (Same As: Ultram) Tramadol No Notes: Not Mem oria 4-27 to exceed l 12:18: 400mg/day. Jackson 00 (Same As: Ultram) Saline No Notes: Memoria Flush 0.9% 02-07 (Same as: l 12:06: BD Dusty 00 Posiflush) Lactated No 1,000 mL, Jacoby hailey Ringers IV 02-07 Rate: 125 l 1,000 mL 12:06: ml/hr, Dusty 00 Infuse over: 8 hr, Route: IV, Dosing Weight 61.364 kg, Total Volume: 1,000, Start date: 02/07/14 7:06:00, Duration: 30 day, Stop date: 03/09/14 7:05:00 Docusate No Notes: Memoria 02-07 (Same as: l 12:06: Colace) Jackson 00 (Do Not Crush) Bisacodyl No Notes: Memori a 02-07 (Same As: l 12:06: Dulcolax, Jackson 00 Correctol) (Do Not Crush) "Do Not Crush" Acetaminoph No 1 tab, Jacoby hailey en 325 MG / 02-07 Route: PO, l Hydrocodone 12:06: Dosing Herm ermelinda Bitartrate 00 Weight 10 MG Oral 61.364, Tablet kg, Q4H, PRN Pain Score 1-3, Start date: 02/07/14 7:06:00, Duration: 30 day, Stop date: 03/09/14 7:05:00 Ibuprofen No Notes: Memori a - (Same as: l 12:06: Motrin) Jackson 00 "Do Not Crush" Take with food. Saline No Notes: Memoria Flush 0.9% 02-07 (Same as: l 12:06: BD Dusty Posiflush) Lactated No 1,000 mL, Jacoby hailey Ringers IV 02-07 Rate: 125 l 1,000 mL 12:06: ml/hr, Dusty Infuse over: 8 hr, Route: IV, Dosing Weight 61.364 kg, Total Volume: 1,000, Start date: 02/07/14 7:06:00, Duration: 30 day, Stop date: 03/09/14 7:05:00 Docusate No Notes: Memoria 02-07 (Same as: l 12:06: Colace) Dusty (Do Not Crush) Bisacodyl No Notes: Memori a 02-07 (Same As: l 12:06: Dulcolax, Jackson 00 Correctol) (Do Not Crush) "Do Not Crush" Acetaminoph No 1 tab, Jacoby hailey en 325 MG / 02-07 Route: PO, l Hydrocodone 12:06: Dosing Herm ermelinda Bitartrate 00 Weight 10 MG Oral 61.364, Tablet kg, Q4H, PRN Pain Score 1-3, Start date: 02/07/14 7:06:00, Duration: 30 day, Stop date: 03/09/14 7:05:00 Ibuprofen No Notes: Memori a 02-07 (Same as: l 12:06: Motrin) Jackson "Do Not Crush" Take with food. Flagyl No 500 mg, Memoria 02-07 Route: l 11:47: IVPB, Jackson 00 ONCE, Dosing Weight 61.364, kg, Priority: STAT, Start date: 02/07/14 6:47:00, Stop date: 02/07/14 6:47:00 Flagyl No 500 mg, Memoria 02-07 Route: l 11:47: IVPB, Dusty 00 ONCE, Dosing Weight 61.364, kg, Priority: STAT, Start date: 02/07/14 6:47:00, Stop date: 02/07/14 6:47:00 Ciprofloxac No Notes: Do M emoria in 02-07 not l 11:46: refrigerat Jackson 00 e Ciprofloxac No Notes: Do M emoria in 02-07 not l 11:46: refrigerat Jackson 00 e Morphine No 6 mg, Memoria 02-07 Route: l 07:27: IVP, Drug Dusty 00 form: INJ, ONCE, Dosing Weight 61.364, kg, Priority: STAT, Start date: 02/07/14 2:27:00, Stop date: 02/07/14 2:27:00 Morphine No 6 mg, Memoria 02-07 Route: l 07:27: IVP, Drug Jackson 00 form: INJ, ONCE, Dosing Weight 61.364, kg, Priority: STAT, Start date: 02/07/14 2:27:00, Stop date: 02/07/14 2:27:00 Acetaminoph No Notes: Do M emoria en 325 MG / 01-18 not exceed l Hydrocodone 23:00: 4gm/day of Jackson Bitartrate 00 acetaminop 10 MG Oral hen. Tablet (Same as: [[place] 10/325] 325/10) Acetaminoph No Notes: Do M emoria en 325 MG / 4-07 not exceed l Hydrocodone 23:00: 4gm/day of Dusty Bitartrate 00 acetaminop 10 MG Oral hen. Tablet (Same as: [[place] 10/325] 325/10) Epinephrine Yes Notes: Jacoby hailey 0.01 MG/ML 01-18 (Same as: l / Lidocaine 21:31: Xylocaine H ermann Hydrochlori 00 w/Epinephr de 20 MG/ML ine) Injectable Solution Epinephrine Yes Notes: Jacoby hailey 0.01 MG/ML 407 (Same as: l / Lidocaine 21:31: Xylocaine H ermann Hydrochlori 00 w/Epinephr de 20 MG/ML ine) Injectable Solution Iohexol No Special Memoria 01-18 Instructio l 21:10: ns: Dose = Jackson 00 2.2ml/kg, Max dose = 100ml -- "To be infused by Radiology Staff ONLY" Iohexol 2014-0 No Special Memoria 01-18 Instructio l 21:10: ns: Dose = Jackson 00 2.2ml/kg, Max dose = 100ml -- "To be infused by Radiology Staff ONLY" Lactated 2013-0 No 1,000 mL, Jacoby hailey Ringers IV 01-18 Rate: 100 l 1,000 mL 20:36: ml/hr, Dusty 00 Infuse over: 10 hr, Route: IV, Dosing Weight 61.364 kg, Total Volume: 1,000, Start date: 01/18/14 15:36:00, Duration: 30 day, Stop date: 02/17/14 15:35:00 Lactated No 1,000 mL, Jacoby hailey Ringers IV 01-18 Rate: 100 l 1,000 mL 20:36: ml/hr, [place] 00 Infuse over: 10 hr, Route: IV, Dosing Weight 61.364 kg, Total Volume: 1,000, Start date: 01/18/14 15:36:00, Duration: 30 day, Stop date: 02/17/14 15:35:00 Acetaminoph No 1 tab, Jacoby hailey en 325 MG / 01-18 Route: PO, l Hydrocodone 20:28: Dosing Herm ermelinda Bitartrate 00 Weight 10 MG Oral 61.364, Tablet kg, ONCE, [[place] Start ] date: 01/18/14 15:28:00, Stop date: 01/18/14 15:28:00 Acetaminoph No 1 tab, Jacoby hailey en 325 MG / 01-18 Route: PO, l Hydrocodone 20:28: Dosing Herm ermelinda Bitartrate 00 Weight 10 MG Oral 61.364, Tablet kg, ONCE, [[place] Start 325] date: 01/18/14 15:28:00, Stop date: 01/18/14 15:28:00 Acetaminoph 0 No 1 tab, Jacoby hailey en 325 MG / 01-02 Route: PO, l Hydrocodone 05:00: Drug Form: Dusty Bitartrate 00 TAB, 10 MG Oral Dosing Tablet Weight [[place] 62.727, 10/325] kg, Q6H, Start date: 01/02/14 0:00:00, Duration: 30 day, Stop date: 01/31/14 18:00:00Do not exceed 4gm/day of acetaminop hen. (Same as: [place] 325/10) Acetaminoph No 1 tab, Jacoby hailey en 325 MG / 3-22 Route: PO, l Hydrocodone 05:00: Drug Form: Dusty Bitartrate 00 TAB, 10 MG Oral Dosing Tablet Weight [[place] 62.727, 10/325] kg, Q6H, Start date: 01/02/14 0:00:00, Duration: 30 day, Stop date: 01/31/14 18:00:00Do not exceed 4gm/day of acetaminop hen. (Same as: [place] 325/10) Alprazolam No 0.25 mg, Mem oria 0.25 MG 3-22 Route: PO, l Oral Tablet 02:00: Drug form: Jackson [Xanax] 00 TAB, Bedtime, Dosing Weight 62.727, kg, Start date: 01/01/14 21:00:00, Duration: 30 day, Stop date: 01/30/14 21:00:00 Alprazolam No 0.25 mg, Mem oria 0.25 MG 3-22 Route: PO, l Oral Tablet 02:00: Drug form: Dusty [Xanax] 00 TAB, Bedtime, Dosing Weight 62.727, kg, Start date: 01/01/14 21:00:00, Duration: 30 day, Stop date: 01/30/14 21:00:00 Acetaminoph Yes 1-2 tab, Me moria en 325 MG / 3-21 PO, Q4-6H, l Hydrocodone 23:08: Pain, # 60 Dusty Bitartrate 19 tab, 0 10 MG Oral Refill(s) Tablet [[place] 10/325] Acetaminoph Yes 1-2 tab, Me moria en 325 MG / 3-21 PO, Q4-6H, l Hydrocodone 23:08: Pain, # 60 [place] Bitartrate 19 tab, 0 10 MG Oral Refill(s) Tablet [[place] 10/325] Carisoprodo Yes 350 mg = 1 Memoria l 350 MG 3-21 tab, PO, l Oral Tablet 22:31: Daily, # He rmann [Soma] 00 30 tab, 0 Refill(s) Acetaminoph No 1-2 tab, Me moria en 325 MG / 3-21 PO, Q4-6H, l Hydrocodone 22:31: Pain, # 30 Dusty Bitartrate 00 tab, 0 10 MG Oral Refill(s) Tablet [[place] 10/325] Carisoprodo Yes 350 mg = 1 Memoria l 350 MG 3-21 tab, PO, l Oral Tablet 22:31: Daily, # He rmann [[facility]] 00 30 tab, 0 Refill(s) Acetaminoph No 1-2 tab, Me moria en 325 MG / 3-21 PO, Q4-6H, l Hydrocodone 22:31: Pain, # 30 Dusty Bitartrate 00 tab, 0 10 MG Oral Refill(s) Tablet [[place] 10/325] Acetaminoph No 1-2 tab, Me moria en 325 MG / 3-21 PO, Q4-6H, l Hydrocodone 21:35: Pain, 0 Her jacobson Bitartrate 00 Refill(s) 10 MG Oral Tablet [[place] 10/325] Ascorbic Yes 2 tab, Memoria Acid / 3-21 CHEW, l Biotin / 21:35: Daily, 0 Kathy nn Folic Acid 00 Refill(s) / Niacin / pantothenat e / pyridoxine / Riboflavin / Thiamine / Vitamin B [facility] No = 2 tab, Memoria 3-21 PO, Daily, l 21:35: 0 Dusty 00 Refill(s) Acetaminoph No 1-2 tab, Me moria en 325 MG / 3-21 PO, Q4-6H, l Hydrocodone 21:35: Pain, 0 Her jacobson Bitartrate 00 Refill(s) 10 MG Oral Tablet [[place] 10/325] Ascorbic Yes 2 tab, Memoria Acid / 3-21 CHEW, l Biotin / 21:35: Daily, 0 Kathy nn Folic Acid 00 Refill(s) / Niacin / pantothenat e / pyridoxine / Riboflavin / Thiamine / Vitamin B [facility] No = 2 tab, Memoria 3-21 PO, Daily, l 21:35: 0 Jackson 00 Refill(s) Lyrica No 100 mg, 1 Memori a 3-21 cap, l 21:00: Route: PO, Dusty 00 Drug form: CAP, Q8H, Dosing Weight 62.727, kg, Start date: 01/01/14 16:00:00, Duration: 30 day, Stop date: 01/31/14 8:00:00([facility] as: Lyrica) Lyrica 2013- No 100 mg, 1 Memori a 3-21 cap, l 21:00: Route: PO, Dusty 00 Drug form: CAP, Q8H, Dosing Weight 62.727, kg, Start date: 01/01/14 16:00:00, Duration: 30 day, Stop date: 01/31/14 8:00:00([facility] as: Lyrica) Alprazolam No 0.25 mg, 1 M emoria 0.25 MG 3-21 tab, l Oral Tablet 20:40: Route: PO, Jackson [Xanax] 00 Drug form: TAB, Bedtime, Dosing Weight 62.727, kg, PRN as needed for anxiety, Start date: 01/01/14 15:40:00, Duration: 30 day, Stop date: 01/31/14 15:39:00Wi th food or milk (Same as: Xanax) Alprazolam No 0.25 mg, 1 M emoria 0.25 MG 3-21 tab, l Oral Tablet 20:40: Route: PO, Jackson [Xanax] 00 Drug form: TAB, Bedtime, Dosing Weight 62.727, kg, PRN as needed for anxiety, Start date: 01/01/14 15:40:00, Duration: 30 day, Stop date: 01/31/14 15:39:00Wi th food or milk (Same as: Xanax) Acetaminoph No 1 tab, Jacoby hailey en 325 MG / 3-21 Route: PO, l Hydrocodone 20:37: Drug Form: Jackson Bitartrate 00 TAB, 10 MG Oral Dosing Tablet Weight [[place] 62.727, 10/325] kg, Q6H, PRN Pain, Start date: 01/01/14 15:37:00, Duration: 30 day, Stop date: 01/31/14 15:36:00Do not exceed 4gm/day of acetaminop hen. (Same as: [place] 325/10) Acetaminoph 2013-0 No 1 tab, Jacoby hailey en 325 MG / 3-21 Route: PO, l Hydrocodone 20:37: Drug Form: Dusty Bitartrate 00 TAB, 10 MG Oral Dosing Tablet Weight [[place] 62.727, 10/325] kg, Q6H, PRN Pain, Start date: 01/01/14 15:37:00, Duration: 30 day, Stop date: 01/31/14 15:36:00Do not exceed 4gm/day of acetaminop hen. (Same as: [place] 325/10) Flexeril 2013-0 No 10 mg, 1 Memor ia 3-21 tab, l 20:36: Route: PO, Jackson 00 Drug form: TAB, Q8H, Dosing Weight 62.727, kg, Priority: NOW, Start date: 01/01/14 15:36:00, Duration: 30 day, Stop date: 01/31/14 8:00:00([facility] As: Flexeril) Oxycontin 2013- No 10 mg, 1 Jacoby hailey 3-21 tab, l 20:36: Route: PO, Drug form: ERTAB, Q12H, Dosing Weight 62.727, kg, Priority: NOW, Start date: 01/01/14 15:36:00, Duration: 30 day, Stop date: 01/31/14 9:00:00Do not crush or chew. (Same as: OxyContin) Flexeril 2013- No 10 mg, 1 Memor ia 3-21 tab, l 20:36: Route: PO, Drug form: TAB, Q8H, Dosing Weight 62.727, kg, Priority: NOW, Start date: 01/01/14 15:36:00, Duration: 30 day, Stop date: 01/31/14 8:00:00([facility] As: Flexeril) Oxycontin 2013-0 No 10 mg, 1 Jacoby hailey 3-21 tab, l 20:36: Route: PO, Drug form: ERTAB, Q12H, Dosing Weight 62.727, kg, Priority: NOW, Start date: 01/01/14 15:36:00, Duration: 30 day, Stop date: 01/31/14 9:00:00Do not crush or chew. (Same as: OxyContin) celecoxib No 200 mg, 2 Mem oria 3-21 cap, l 17:00: Route: PO, Dusty 00 Drug form: CAP, BID, Dosing Weight 62.727, kg, Start date: 01/01/14 12:00:00, Duration: 30 day, Stop date: 01/31/14 9:00:00NSA ID. Please check indication . Not for seizure. (Same As: CeleBREX ) Acetaminoph No 1 tab, Jacoby hailey en 325 MG / 21 Route: PO, l Hydrocodone 17:00: Drug Form: [place] Bitartrate 00 TAB, 10 MG Oral Dosing Tablet Weight [[place] 62.727, 10/325] kg, Q6H, Start date: 01/01/14 12:00:00, Duration: 30 day, Stop date: 01/31/14 6:00:00Do not exceed 4gm/day of acetaminop hen. (Same as: [place] 325/10) celecoxib No 200 mg, 2 Mem oria 3-21 cap, l 17:00: Route: PO, Jackson 00 Drug form: CAP, BID, Dosing Weight 62.727, kg, Start date: 01/01/14 12:00:00, Duration: 30 day, Stop date: 01/31/14 9:00:00NSA ID. Please check indication . Not for seizure. (Same As: CeleBREX ) Acetaminoph No 1 tab, Jacoby hailey en 325 MG / 21 Route: PO, l Hydrocodone 17:00: Drug Form: [place] Bitartrate 00 TAB, 10 MG Oral Dosing Tablet Weight [[place] 62.727, 10/325] kg, Q6H, Start date: 01/01/14 12:00:00, Duration: 30 day, Stop date: 01/31/14 6:00:00Do not exceed 4gm/day of acetaminop hen. (Same as: [place] 325/10) Tramadol No 100 mg, 2 Jacoby hailey 3-21 tab, l 15:50: Route: PO, Dusty 00 Drug form: TAB, Q6H, Dosing Weight 62.727, kg, PRN Pain, Start date: 01/01/14 10:50:00, Duration: 30 day, Stop date: 01/31/14 10:49:00No t to exceed 400mg/day. (Same As: Ultram) Acetaminoph No 1 tab, Jacoby hailey en 325 MG / 21 Route: PO, l Hydrocodone 15:50: Drug Form: Dusty Bitartrate 00 TAB, 10 MG Oral Dosing Tablet Weight [[place] 62.727, 10/325] kg, Q4H, PRN Pain, Start date: 01/01/14 10:50:00, Duration: 30 day, Stop date: 01/31/14 10:49:00Do not exceed 4gm/day of acetaminop hen. (Same as: [place] 325/10) Tramadol No 100 mg, 2 Jacoby hailey 3-21 tab, l 15:50: Route: PO, Drug form: TAB, Q6H, Dosing Weight 62.727, kg, PRN Pain, Start date: 01/01/14 10:50:00, Duration: 30 day, Stop date: 01/31/14 10:49:00No t to exceed 400mg/day. (Same As: Ultram) Acetaminoph No 1 tab, Jacoby hailey en 325 MG / 01-01 Route: PO, l Hydrocodone 15:50: Drug Form: [place] Bitartrate 00 TAB, 10 MG Oral Dosing Tablet Weight [[place] 62.727, 10/325] kg, Q4H, PRN Pain, Start date: 01/01/14 10:50:00, Duration: 30 day, Stop date: 01/31/14 10:49:00Do not exceed 4gm/day of acetaminop hen. (Same as: [place] 325/10) Dilaudid No 0.5 mg, Memori a 3-21 0.25 mL, l 14:18: Route: IV, Drug form: INJ, Q3H, Dosing Weight 62.727, kg, PRN Pain, Start date: 01/01/14 9:18:00, Stop date: 01/31/14 9:17:00Sam e as: Dilaudid Dilaudid 2014-0 No 0.5 mg, Memori a 3-21 0.25 mL, l 14:18: Route: IV, Dusty 00 Drug form: INJ, Q3H, Dosing Weight 62.727, kg, PRN Pain, Start date: 01/01/14 9:18:00, Stop date: 01/31/14 9:17:00Sam e as: Dilaudid D5NS + KCL 2014-0 No 1,000 mL, Me moria 20mEq/L 3-21 Rate: 125 l 1000ml 14:16: ml/hr, Dusty (Premix) 00 Infuse 1,000 mL over: 8 hr, Route: IV, Dosing Weight 62.727 kg, Total Volume: 1,000, Start date: 01/01/14 9:16:00, Duration: 30 day, Stop date: 01/31/14 9:15:00 Saline 2014-0 No 5 ml, Memoria Flush 0.9% 3-21 Route: l 14:16: IVP, Drug Dusty 00 Form: INJ, Dosing Weight 62.727, kg, PRN, PRN Line Flush, Start date: 01/01/14 9:16:00, Duration: 30 day, Stop date: 01/31/14 9:15:00 D5NS + KCL 2014-0 No 1,000 mL, Me moria 20mEq/L 3-21 Rate: 125 l 1000ml 14:16: ml/hr, Dusty (Premix) 00 Infuse 1,000 mL over: 8 hr, Route: IV, Dosing Weight 62.727 kg, Total Volume: 1,000, Start date: 01/01/14 9:16:00, Duration: 30 day, Stop date: 01/31/14 9:15:00 Saline 2014-0 No 5 ml, Memoria Flush 0.9% 3-21 Route: l 14:16: IVP, Drug Jackson 00 Form: INJ, Dosing Weight 62.727, kg, PRN, PRN Line Flush, Start date: 01/01/14 9:16:00, Duration: 30 day, Stop date: 01/31/14 9:15:00 Enoxaparin 2013-0 No 30 mg, 0.3 M emoria 3-21 mL, Route: l 14:00: SUB-Q, Jackson 00 Drug form: INJ, [id number], Dosing Weight 62.727, kg, Start date: 01/01/14 9:00:00, Duration: 30 day, Stop date: 01/30/14 21:00:00 Enoxaparin 2013-0 No 30 mg, 0.3 M emoria 3-21 mL, Route: l 14:00: SUB-Q, Drug form: INJ, [id number], Dosing Weight 62.727, kg, Start date: 01/01/14 9:00:00, Duration: 30 day, Stop date: 01/30/14 21:00:00 Ativan 2013-0 No 1 mg, 1 Memoria 3-21 tab, l 13:05: Route: PO, Drug form: TAB, TID, Dosing Weight 62.727, kg, PRN Anxiety, Start date: 01/01/14 8:05:00, Duration: 30 day, Stop date: 01/31/14 8:04:00(Sa me as: Ativan) Ativan 2013-0 No 1 mg, 1 Memoria 3-21 tab, l 13:05: Route: PO, Drug form: TAB, TID, Dosing Weight 62.727, kg, PRN Anxiety, Start date: 01/01/14 8:05:00, Duration: 30 day, Stop date: 01/31/14 8:04:00(Sa me as: Ativan) [place] 2012-10 Yes (Active) Memoria 10-325 MG 2-06 l Oral Tablet 17:47: [place] ortiz 53 [place] 2012-10 Yes (Active) Memoria 10-325 MG 2-06 l Oral Tablet 17:47: [place] ortiz 53 Colace 100 2012-10 Yes Jignesh 100 mg, 1 Memoria mg oral 1-11 Agusto cap, PO, l capsule 22:55: Kaplan BID, 30 Kathy nn 25 cap, Substituti on Allowed, CAP Col[place] 100 2012-10 Yes Jignesh 100 mg, 1 Memoria mg oral 1-11 Agusto cap, PO, l capsule 22:55: Kaplan BID, 30 Kathy nn 25 cap, Substituti on Allowed, CAP [place] 2012-10 Yes Jignesh 1 tab, PO, Mem oria 10/325 oral 1-11 Agusto Q6H, PRN, l tablet 22:55: Kaplan 40 tab, [place] n 11 Pain, Substituti on Allowed, Maintenanc e, TAB [place] 2012-10 Yes Jignesh 1 tab, PO, Mem oria 10/325 oral -11 Agusto Q6H, PRN, l tablet 22:55: Kaplan 40 tab, [place] n 11 Pain, Substituti on Allowed, Maintenanc e, TAB gentamicin 2012-10 No Anup 400 mg, 10 Memoria + Sodium 1-09 r Rasheed mL, Route: l Chloride 06:00: Goodenough IV, Q24H, Jackson 0.9% IV 100 00 Dosing mL Weight 56.818, kg, Start date: 08/22/13 0:00:00, Duration: 30 day, Stop date: 09/20/13 0:00:00(Sa me as Garamycin) gentamicin 2012-10 No Anup 400 mg, 10 Memoria + Sodium 10-22 r Rasheed mL, Route: l Chloride 06:00: Goodenough IV, Q24H, Dusty 0.9% IV 100 00 Dosing mL Weight 56.818, kg, Start date: 08/22/13 0:00:00, Duration: 30 day, Stop date: 09/20/13 0:00:00(Sa me as Garamycin) vancomycin 2012-10 No Jignesh 1.25 gm, Memoria + Sodium 10-22 Agusto Route: IV, l Chloride 03:00: Kaplan Q12H, [place] n 0.9% IV 250 00 Dosing mL Weight 56.818, kg, Start date: 08/21/13 21:00:00, Stop date: 09/20/13 21:00:00(S obi As: Vancocin) Vancomycin FOR IV SET ONLY vancomycin 2012-10 No Jignesh 1.25 gm, Memoria + Sodium 10-22 Agusto Route: IV, l Chloride 03:00: Kaplan Q12H, [place] n 0.9% IV 250 00 Dosing mL Weight 56.818, kg, Start date: 08/21/13 21:00:00, Stop date: 09/20/13 21:00:00(S obi As: Vancocin) Vancomycin FOR IV SET ONLY senna 8.6 2012-10 No Jignesh 8.6 mg, 1 Memoria mg oral 1-08 Agusto tab, l tablet 03:00: Kaplan Route: PO, Her jacobson 00 Drug Form: TAB, Dosing Weight 56.818, kg, Bedtime, Start date: 08/20/13 21:00:00, Duration: 30 day, Stop date: 09/18/13 21:00:00(S obi as: Senokot) senna 8.6 2012-10 No Jignesh 8.6 mg, 1 Memoria mg oral 1-08 Agusto tab, l tablet 03:00: Kaplan Route: PO, Her jacobson 00 Drug Form: TAB, Dosing Weight 56.818, kg, Bedtime, Start date: 08/20/13 21:00:00, Duration: 30 day, Stop date: 09/18/13 21:00:00(S obi as: Senokot) [place] 2012-10 No Shree 10 mL, Memoria Flush 0.9% 1-06 Dez Route: l 22:00: Alvarado IVP, Drug Jackson 00 Form: INJ, Dosing Weight 56.818, kg, Q8H, Start date: 08/19/13 16:00:00, Duration: 30 day, Stop date: 09/18/13 8:00:00(Sa me as: BD Posiflush) [place]ine 2012-10 No Shree 10 mL, Memoria Flush 0.9% 1-06 Dez Route: l 22:00: Alvarado IVP, Drug Jackson 00 Form: INJ, Dosing Weight 56.818, kg, Q8H, Start date: 08/19/13 16:00:00, Duration: 30 day, Stop date: 09/18/13 8:00:00(Sa me as: BD Posiflush) Saline 2012-10 No Shree 10 mL, Memoria Flush 0.9% 1-06 Dez Route: l 18:12: Alvarado IVP, Drug Jackson 00 Form: INJ, Dosing Weight 56.818, kg, PRN, PRN Line Flush, Start date: 08/19/13 12:12:00, Duration: 30 day, Stop date: 09/18/13 12:11:00(S obi as: BD Posiflush) Saline 2012-10 No Shree 10 mL, Memoria Flush 0.9% 10-19 Dez Route: l 18:12: Alvarado IVP, Drug Dusty 00 Form: INJ, Dosing Weight 56.818, kg, PRN, PRN Line Flush, Start date: 08/19/13 12:12:00, Duration: 30 day, Stop date: 09/18/13 12:11:00(S obi as: BD Posiflush) LR IV 1,000 2012-10 No Jignesh 1,000 mL, Memoria mL - Agusto Rate: 100 l 06:15: Kaplan ml/hr, Jackson 00 Infuse over: 10 hr, Route: IV, Dosing Weight 56.818 kg, Total Volume: 1,000, Start date: 08/19/13 0:15:00, Duration: 30 day, Stop date: 09/18/13 0:14:00 LR IV 1,000 2012-10 No Jignesh 1,000 mL, Memoria mL 10-19 Agusto Rate: 100 l 06:15: Kaplan ml/hr, Jackson 00 Infuse over: 10 hr, Route: IV, Dosing Weight 56.818 kg, Total Volume: 1,000, Start date: 08/19/13 0:15:00, Duration: 30 day, Stop date: 09/18/13 0:14:00 D5W 1/2NS + 2012-10 No Jignesh 1,000 mL, Memoria KCL 20mEq/L 06 Agusto Rate: 100 l 1000ml 06:01: Kaplan ml/hr, Dusty (Premix) 00 Infuse 1,000 mL over: 10 hr, Route: IV, Dosing Weight 56.818 kg, Total Volume: 1,000, Start date: 08/19/13 0:01:00, Duration: 30 day, Stop date: 09/18/13 0:00:00PRE MIX IV - Do Not Alter D5W 1/2NS + 2012-10 No Jignesh 1,000 mL, Memoria KCL 20mEq/L -06 Agusto Rate: 100 l 1000ml 06:01: Kaplan ml/hr, Dusty (Premix) 00 Infuse 1,000 mL over: 10 hr, Route: IV, Dosing Weight 56.818 kg, Total Volume: 1,000, Start date: 08/19/13 0:01:00, Duration: 30 day, Stop date: 09/18/13 0:00:00PRE MIX IV - Do Not Alter Dilaudid 2012-10 No Anup 0.2 mg, Memoria 1-06 r Rasheed 0.1 mL, l 05:30: Goodenough Route: IV, H ermann 00 Drug form: INJ, ONCE, Dosing Weight 56.818, kg, Start date: 08/18/13 23:30:00, Stop date: 08/18/13 23:30:00(S oib as: Dilaudid) Dilaudid 2012-10 No Anup 0.2 mg, Memoria 1-06 r Rasheed 0.1 mL, l 05:30: Goodenough Route: IV, H ermann 00 Drug form: INJ, ONCE, Dosing Weight 56.818, kg, Start date: 08/18/13 23:30:00, Stop date: 08/18/13 23:30:00(S obi as: Dilaudid) vancomycin 2012-10 No Jignesh 1.25 gm, Memoria + Sodium 1-06 Agusto Route: IV, l Chloride 03:00: Kaplan [id number], Her jacobson 0.9% IV 250 00 Dosing mL Weight 56.818, kg, Start date: 08/18/13 21:00:00, Duration: 30 day, Stop date: 09/17/13 9:00:00(Sa me As: Vancocin) Vancomycin FOR IV SET ONLY vancomycin 2012-10 No Jignesh 1.25 gm, Memoria + Sodium 1-06 Agusto Route: IV, l Chloride 03:00: Kaplan [id number], Her jacobson 0.9% IV 250 00 Dosing mL Weight 56.818, kg, Start date: 08/18/13 21:00:00, Duration: 30 day, Stop date: 09/17/13 9:00:00(Sa me As: Vancocin) Vancomycin FOR IV SET ONLY Lovenox 2012-10 No [place] 30 mg, 0.3 M emoria 1-06 Alvarez mL, Route: l 00:00: SUB-Q, Dusty 00 Drug form: INJ, [id number], Dosing Weight 56.818, kg, Start date: 08/18/13 18:00:00, Duration: 30 day, Stop date: 09/17/13 8:00:00([facility] as: Lovenox) Lovenox 2012-10 No [place] 30 mg, 0.3 M emoria 1-06 Alvarez mL, Route: l 00:00: SUB-Q, Jackson 00 Drug form: INJ, [id number], Dosing Weight 56.818, kg, Start date: 08/18/13 18:00:00, Duration: 30 day, Stop date: 09/17/13 8:00:00( me as: Lovenox) lidocaine 2012-10 No Jignesh 5 mL, Jacoby hailey 1% 1-05 Agusto Route: l 23:00: Kaplan INTRADERM, Kathy nn 00 Drug Form: INJ, Dosing Weight 56.818, kg, ONCALL, Start date: 08/18/13 17:00:00, Duration: 1 day, Stop date: 08/19/13 16:59:00(S obi as: Xylocaine) lidocaine 2012-10 No Jignesh 5 mL, Jacoby hailey 1% 1-05 Agusto Route: l 23:00: Kaplan INTRADERM, Kathy nn 00 Drug Form: INJ, Dosing Weight 56.818, kg, ONCALL, Start date: 08/18/13 17:00:00, Duration: 1 day, Stop date: 08/19/13 16:59:00(S obi as: Xylocaine) D5W 1/2NS + 2012-10 No [place] 1,000 mL, Memoria KCL 20mEq/L 10-18 Alvarez Rate: 100 l 1000ml 06:01: ml/hr, Jackson (Premix) 00 Infuse 1,000 mL over: 10 hr, Route: IV, Dosing Weight 56.818 kg, Total Volume: 1,000, Start date: 08/18/13 0:01:00, Duration: 30 day, Stop date: 09/17/13 0:00:00PRE MIX IV - Do Not Alter D5W 1/2NS + 2012-10 No [place] 1,000 mL, Memoria KCL 20mEq/L 10-18 Alvarez Rate: 100 l 1000ml 06:01: ml/hr, Dusty (Premix) 00 Infuse 1,000 mL over: 10 hr, Route: IV, Dosing Weight 56.818 kg, Total Volume: 1,000, Start date: 08/18/13 0:01:00, Duration: 30 day, Stop date: 09/17/13 0:00:00PRE MIX IV - Do Not Alter Celebrex 2012-10 No [place] 200 mg, 2 M emoria -05 Alvarez cap, l 03:00: Route: PO, Jackson 00 Drug form: CAP, Q12H, Dosing Weight 59.091, kg, Start date: 08/17/13 21:00:00, Duration: 30 day, Stop date: 09/16/13 9:00:00NSA ID. Please check indication . Not for seizure. (Same As: Celebrex) Celebrex 2012-10 No [place] 200 mg, 2 M emoria 05 Alvarez cap, l 03:00: Route: PO, Dusty 00 Drug form: CAP, Q12H, Dosing Weight 59.091, kg, Start date: 08/17/13 21:00:00, Duration: 30 day, Stop date: 09/16/13 9:00:00NSA ID. Please check indication . Not for seizure. (Same As: Celebrex) [place] 2012-10 No Anup 1 tab, Jacoby hailey 10/325 oral 10-18 casimiro Iqbal Route: PO, l tablet 02:36: Goodenough Drug Form: Dusty 00 TAB, Dosing Weight 56.818, kg, Q6H, PRN Pain, Start date: 08/17/13 20:36:00, Duration: 30 day, Stop date: 09/16/13 20:35:00Do not exceed 4gm/day of acetaminop hen. (Same as: [place] 325/10) [place] 2012-10 No Anup 1 tab, Jacoby hailey 10/325 oral 10-18 casimiro Iqbal Route: PO, l tablet 02:36: [place] Drug Form: Dusty 00 TAB, Dosing Weight 56.818, kg, Q6H, PRN Pain, Start date: 08/17/13 20:36:00, Duration: 30 day, Stop date: 09/16/13 20:35:00Do not exceed 4gm/day of acetaminop hen. (Same as: [place] 325/10) vancomycin 2012-10 No Jignesh 1 gm, Mem oria 1-05 Agusto Route: l 02:00: Kaplan IVPB, Drug Kathy nn 00 form: INJ, [id number], Dosing Weight 59.091, kg, Start date: 08/17/13 20:00:00, Duration: 30 day, Stop date: 09/16/13 8:00:00( me As: Vancocin) vancomycin 2012-10 No Jignesh 1 gm, Mem oria 1-05 Agusto Route: l 02:00: Kaplan IVPB, Drug Kathy nn 00 form: INJ, [id number], Dosing Weight 59.091, kg, Start date: 08/17/13 20:00:00, Duration: 30 day, Stop date: 09/16/13 8:00:00(Sa me As: Vancocin) Lyrica 2012-10 No [place] 100 mg, 1 Mem oria 1-04 Alvarez cap, l 22:00: Route: PO, Jackson 00 Drug form: CAP, Q8H, Dosing Weight 59.091, kg, Start date: 08/17/13 16:00:00, Duration: 30 day, Stop date: 09/16/13 10:00:00(S obi as: Lyrica) Lyrica 2012-10 No [place] 100 mg, 1 Mem oria 1-04 Alvarez cap, l 22:00: Route: PO, Jackson 00 Drug form: CAP, Q8H, Dosing Weight 59.091, kg, Start date: 08/17/13 16:00:00, Duration: 30 day, Stop date: 09/16/13 10:00:00(S obi as: Lyrica) tramadol 2012-10 No [place] 100 mg, 2 M emoria -04 Alvarez tab, l 16:29: Route: PO, Dusty 00 Drug form: TAB, Q6H, Dosing Weight 59.091, kg, PRN Pain, Start date: 08/17/13 10:29:00, Duration: 30 day, Stop date: 09/16/13 10:28:00No t to exceed 400mg/day. (Same As: Ultram) tramadol 2012-10 No [place] 100 mg, 2 M emoria 1-04 Alvarez tab, l 16:29: Route: PO, Dusty 00 Drug form: TAB, Q6H, Dosing Weight 59.091, kg, PRN Pain, Start date: 08/17/13 10:29:00, Duration: 30 day, Stop date: 09/16/13 10:28:00No t to exceed 400mg/day. (Same As: Ultram) ketorolac 2012-10 No [place] 30 mg, 1 M emoria 1-04 Alvarez mL, Route: l 16:27: IV, Drug form: INJ, ONCE, Dosing Weight 59.091, kg, Start date: 08/17/13 10:27:00, Duration: 1 doses or times, Stop date: 08/17/13 10:27:00(S obi as:Toradol ) IV bolus must be given >15 seconds. Give IM administra tion slowly and deeply into the muscle. Not for use > 4 days ketorolac 2012-10 No [place] 30 mg, 1 M emoria 1-04 Alvarez mL, Route: l 16:27: IV, Drug form: INJ, ONCE, Dosing Weight 59.091, kg, Start date: 08/17/13 10:27:00, Duration: 1 doses or times, Stop date: 08/17/13 10:27:00(S obi as:Toradol ) IV bolus must be given >15 seconds. Give IM administra tion slowly and deeply into the muscle. Not for use > 4 days morphine 2012-10 No Tommy Gonzalez 4 mg, 1 M emoria Sulfate 1-04 mL, Route: l 12:00: IVP, Drug form: INJ, ONCE, Dosing Weight 59.091, kg, Start date: 08/17/13 6:00:00, Stop date: 08/17/13 6:00:00(Sa me as:MORPhin e Sulfate) vancomycin 2012-10 No Elo 1 gm, Jacoby hailey 1-04 Blair Route: IV, l 12:00: Drug form: Dusty 00 INJ, [id number], Dosing Weight 59.091, kg, Start date: 08/17/13 6:00:00, Duration: 30 day, Stop date: 09/16/13 0:00:00(Sa me As: Vancocin) morphine 2012-10 No Tommy Gonzalez 4 mg, 1 M emoria Sulfate 1-04 mL, Route: l 12:00: IVP, Drug form: INJ, ONCE, Dosing Weight 59.091, kg, Start date: 08/17/13 6:00:00, Stop date: 08/17/13 6:00:00(Sa me as:MORPhin e Sulfate) vancomycin 2012-10 No Elo 1 gm, Jacoby hailey 1-04 Blair Route: IV, l 12:00: Drug form: Jackson 00 INJ, [id number], Dosing Weight 59.091, kg, Start date: 08/17/13 6:00:00, Duration: 30 day, Stop date: 09/16/13 0:00:00(Sa me As: Vancocin) [place] 2012-10 No Paul Won 1 tab, Memori a 10/325 oral 1- [place] Route: PO, l tablet 10:00: Dosing Dusty 00 Weight 59.091, kg, Q4H, Start date: 08/17/13 4:00:00, Duration: 30 day, Stop date: 09/16/13 0:00:00 [place] 2012-10 No Paul Won 1 tab, Memori a 10/325 oral 1-04 [place] Route: PO, l tablet 10:00: Dosing Dusty 00 Weight 59.091, kg, Q4H, Start date: 08/17/13 4:00:00, Duration: 30 day, Stop date: 09/16/13 0:00:00 Benadryl 2012-10 No Tommy Gonzalez 25 mg, 0.5 Memoria 1-04 mL, Route: l 08:17: IVP, Drug form: INJ, ONCE, Dosing Weight 59.091, kg, PRN Itching, Start date: 08/17/13 2:17:00(Sa me as: Benadryl) Benadryl 2012-10 No Tommy Gonzalez 25 mg, 0.5 Memoria 1-04 mL, Route: l 08:17: IVP, Drug Jackson 00 form: INJ, ONCE, Dosing Weight 59.091, kg, PRN Itching, Start date: 08/17/13 2:17:00(Sa me as: Benadryl) morphine 2012-10 No Tommy Gonzalez 4 mg, 1 M emoria Sulfate 1-04 mL, Route: l 08:16: IVP, Drug Jackson 00 form: INJ, ONCE, Dosing Weight 59.091, kg, Start date: 08/17/13 2:16:00, Stop date: 08/17/13 2:16:00(Sa me as:MORPhin e Sulfate) morphine 2012-10 No Tommy Gonzalez 4 mg, 1 M emoria Sulfate 1-04 mL, Route: l 08:16: IVP, Drug Dusty 00 form: INJ, ONCE, Dosing Weight 59.091, kg, Start date: 08/17/13 2:16:00, Stop date: 08/17/13 2:16:00(Sa me as:MORPhin e Sulfate) Dilaudid 2012-10 No [place] 0.5 mg, Mem oria 1-04 Alvarez 0.25 mL, l 07:07: Route: IV, Dusty 00 Drug form: INJ, Q3H, Dosing Weight 59.091, kg, PRN Pain Score 7-10, Start date: 08/17/13 1:07:00, Duration: 30 day, Stop date: 09/16/13 1:06:00(Sa me as: Dilaudid) Dilaudid 2012-10 No [place] 0.5 mg, Mem oria 1-04 Alvarez 0.25 mL, l 07:07: Route: IV, Dusty 00 Drug form: INJ, Q3H, Dosing Weight 59.091, kg, PRN Pain Score 7-10, Start date: 08/17/13 1:07:00, Duration: 30 day, Stop date: 09/16/13 1:06:00(Sa me as: Dilaudid) Benadryl 2012-10 No Tommy Gonzalez 25 mg, 0.5 Memoria 1-04 mL, Route: l 06:34: IVP, Drug Jackson 00 form: INJ, ONCE, Dosing Weight 59.091, kg, PRN Allergic reaction, Start date: 08/17/13 0:34:00(Sa me as: Benadryl) Benadryl 2012-10 No Tommy Gonzalez 25 mg, 0.5 Memoria 1-04 mL, Route: l 06:34: IVP, Drug Dusty 00 form: INJ, ONCE, Dosing Weight 59.091, kg, PRN Allergic reaction, Start date: 08/17/13 0:34:00(Sa me as: Benadryl) Dilaudid 2012-10 No Tommy Gonzalez 0.5 mg, M emoria 10-17 Route: l 06:28: IVP, ONCE, Jackson 00 Dosing Weight 59.091, kg, Priority: STAT, Start date: 08/17/13 0:28:00, Stop date: 08/17/13 0:28:00 Dilaudid 2012-10 No Tommy Gonzalez 0.5 mg, M emoria 10-17 Route: l 06:28: IVP, ONCE, Dusty Dosing Weight 59.091, kg, Priority: STAT, Start date: 08/17/13 0:28:00, Stop date: 08/17/13 0:28:00 morphine 2012-10 No Tommy Gonzalez 4 mg, 1 M emoria Sulfate 1-04 mL, Route: l 06:27: IVP, Drug Dusty 00 form: INJ, ONCE, Dosing Weight 59.091, kg, Start date: 08/17/13 0:27:00, Stop date: 08/17/13 0:27:00(Sa me as:MORPhin e Sulfate) morphine 2012-10 No Tommy Gonzalez 4 mg, 1 M emoria Sulfate 1-04 mL, Route: l 06:27: IVP, Drug Dusty 00 form: INJ, ONCE, Dosing Weight 59.091, kg, Start date: 08/17/13 0:27:00, Stop date: 08/17/13 0:27:00(Sa me as:MORPhin e Sulfate) Colace 100 2012-10 No Paul Won 100 mg, 1 Memoria mg oral 10-17 [place] cap, l capsule 06:15: Route: PO, Herm ermelinda 00 Drug form: CAP, BID, Dosing Weight 59.091, kg, Priority: STAT, Start date: 08/17/13 0:15:00, Duration: 30 day, Stop date: 09/15/13 17:00:00(S obi as: Colace) (Do Not Crush) Colace 100 2012-10 No Paul Won 100 mg, 1 Memoria mg oral 10-17 [place] cap, l capsule 06:15: Route: PO, Herm ermelinda 00 Drug form: CAP, BID, Dosing Weight 59.091, kg, Priority: STAT, Start date: 08/17/13 0:15:00, Duration: 30 day, Stop date: 09/15/13 17:00:00(S obi as: Colace) (Do Not Crush) gentamicin 2012-10 No Jignesh 414 mg, M emoria + Sodium 1-04 Agusto 10.35 mL, l Chloride 06:13: Kaplan Route: IV, H ermann 0.9% IV 100 00 [id number], mL Dosing Weight 59.091, kg, Priority: STAT, Start date: 08/17/13 0:13:00, Duration: 30 day, Stop date: 09/15/13 0:13:00(Sa me as Garamycin) gentamicin 2012-10 No Jignesh 414 mg, M emoria + Sodium -04 Agusto 10.35 mL, l Chloride 06:13: Kaplan Route: IV, H ermann 0.9% IV 100 00 [id number], mL Dosing Weight 59.091, kg, Priority: STAT, Start date: 08/17/13 0:13:00, Duration: 30 day, Stop date: 09/15/13 0:13:00(Sa me as Garamycin) D5W 1/2NS + 2012-10 No [place] 1,000 mL, Memoria KCL 20mEq/L 10-17 Alvarez Rate: 100 l 1000ml 06:11: ml/hr, Dusty (Premix) 00 Infuse 1,000 mL over: 10 hr, Route: IV, Dosing Weight 59.091 kg, Total Volume: 1,000, Priority: STAT, Start date: 08/17/13 0:11:00, Duration: 30 day, Stop date: 09/16/13 0:10:00PRE MIX IV - Do Not Alter D5W 1/2NS + 2012-10 No [place] 1,000 mL, Memoria KCL 20mEq/L 10-17 Alvarez Rate: 100 l 1000ml 06:11: ml/hr, Jackson (Premix) 00 Infuse 1,000 mL over: 10 hr, Route: IV, Dosing Weight 59.091 kg, Total Volume: 1,000, Priority: STAT, Start date: 08/17/13 0:11:00, Duration: 30 day, Stop date: 09/16/13 0:10:00PRE MIX IV - Do Not Alter Lactated 2012-10 No Tommy Gonzalez 1,000 mL, Memoria Ringers 1-04 Rate: l (Bolus) IV 04:44: 1,000 [place] 1,000 mL 00 ml/hr, Infuse over: 1 hr, Route: IV, Dosing Weight 59.091 kg, Total Volume: 1,000, Bolus Dose, Priority: STAT, Start date: 08/16/13 22:44:00, Duration: 1 doses or times, Stop date: 08/16/13 23:43:00 Lactated 2012-10 No Tommy Gonzalez 1,000 mL, Memoria Ringers 1-04 Rate: l (Bolus) IV 04:44: 1,000 [place] 1,000 mL 00 ml/hr, Infuse over: 1 hr, Route: IV, Dosing Weight 59.091 kg, Total Volume: 1,000, Bolus Dose, Priority: STAT, Start date: 08/16/13 22:44:00, Duration: 1 doses or times, Stop date: 08/16/13 23:43:00 Lactated 2012-10 No Tommy Gonzalez 1,000 mL, Memoria Ringers 1-04 Rate: l (Bolus) IV 04:27: 1,000 [place] 1000 mL 00 ml/hr, Infuse over: 1 hr, Route: IV, Dosing Weight 59.091 kg, Total Volume: 1,000, Bolus Dose, Priority: STAT, Start date: 08/16/13 22:27:00, Duration: 1 doses or times, Stop date: 08/16/13 23:26:00 Lactated 2012-10 No Tommy Gonzalez 1,000 mL, Memoria Ringers 1-04 Rate: l (Bolus) IV 04:27: 1,000 [place] 1000 mL 00 ml/hr, Infuse over: 1 hr, Route: IV, Dosing Weight 59.091 kg, Total Volume: 1,000, Bolus Dose, Priority: STAT, Start date: 08/16/13 22:27:00, Duration: 1 doses or times, Stop date: 08/16/13 23:26:00 morphine 2012-10 No Tommy Gonzalez 8 mg, 2 M emoria Sulfate 1-04 mL, Route: l 03:47: IVP, Drug Jackson 00 form: INJ, ONCE, Dosing Weight 59.091, kg, Priority: STAT, Start date: 08/16/13 21:47:00, Stop date: 08/16/13 21:47:00(S obi as:MORPhin e Sulfate) morphine 2012-10 No Tommy Gonzalez 8 mg, 2 M emoria Sulfate 1-04 mL, Route: l 03:47: IVP, Drug Jackson 00 form: INJ, ONCE, Dosing Weight 59.091, kg, Priority: STAT, Start date: 08/16/13 21:47:00, Stop date: 08/16/13 21:47:00(S obi as:MORPhin e Sulfate) cefepime 2012-10 No Tommy Gonzalez 1 gm, Mem oria 04 Route: l 03:46: IVPB, Drug Dusty 00 form: INJ, ONCE, Dosing Weight 59.091, kg, Priority: STAT, Start date: 08/16/13 21:46:00, Stop date: 08/16/13 21:46:00(S obi As: Maxipime) vancomycin 2012-10 No Tommy Gonzalez 1 gm, M emoria 1-04 Route: l 03:46: IVPB, Drug Dusty 00 form: INJ, ONCE, Dosing Weight 59.091, kg, Priority: STAT, Start date: 08/16/13 21:46:00, Stop date: 08/16/13 21:46:00(S obi As: Vancocin) Flagyl 2012-10 No Tommy Gonzalez 500 mg, Mem oria 1-04 100 mL, l 03:46: Route: Jackson 00 IVPB, Drug form: INJ, ONCE, Dosing Weight 59.091, kg, Priority: STAT, Start date: 08/16/13 21:46:00, Stop date: 08/16/13 21:46:00(S obi as: Flagyl) Avoid alcohol. cefepime 2012-10 No Tommy Gonzalez 1 gm, Mem oria 1- Route: l 03:46: IVPB, Drug Jackson 00 form: INJ, ONCE, Dosing Weight 59.091, kg, Priority: STAT, Start date: 08/16/13 21:46:00, Stop date: 08/16/13 21:46:00(S obi As: Maxipime) vancomycin 2012-10 No Tommy Gonzalez 1 gm, M emoria 10-17 Route: l 03:46: IVPB, Drug Dusty 00 form: INJ, ONCE, Dosing Weight 59.091, kg, Priority: STAT, Start date: 08/16/13 21:46:00, Stop date: 08/16/13 21:46:00(S obi As: Vancocin) Flagyl 2012-10 No Tommy Gonzalez 500 mg, Mem oria -04 100 mL, l 03:46: Route: Jackson 00 IVPB, Drug form: INJ, ONCE, Dosing Weight 59.091, kg, Priority: STAT, Start date: 08/16/13 21:46:00, Stop date: 08/16/13 21:46:00(S obi as: Flagyl) Avoid alcohol. Lactated 2012-10 No Tommy Gonzalez 1,000 mL, Memoria Ringers 1-04 Rate: l (Bolus) IV 03:08: 1,000 [place] 1,000 mL 00 ml/hr, Infuse over: 1 hr, Route: IV, Dosing Weight 59.091 kg, Total Volume: 1,000, Bolus Dose, Priority: STAT, Start date: 08/16/13 21:08:00, Duration: 1 doses or times, Stop date: 08/16/13 22:07:00 Lactated 2012-10 No Tommy Gonzalez 1,000 mL, Memoria Ringers 1-04 Rate: l (Bolus) IV 03:08: 1,000 [place] 1,000 mL 00 ml/hr, Infuse over: 1 hr, Route: IV, Dosing Weight 59.091 kg, Total Volume: 1,000, Bolus Dose, Priority: STAT, Start date: 08/16/13 21:08:00, Duration: 1 doses or times, Stop date: 08/16/13 22:07:00 morphine 2012-10 No [place] 4 mg, 1 M emoria Sulfate 1-04 M Slimp mL, Route: l 02:48: IVP, Drug Jackson 00 form: INJ, ONCE, Dosing Weight 59.091, kg, Priority: STAT, Start date: 08/16/13 20:48:00, Stop date: 08/16/13 20:48:00(S obi as:MORPhin e Sulfate) morphine 2012-10 No [place] 4 mg, 1 M emoria Sulfate 1-04 M Slimp mL, Route: l 02:48: IVP, Drug Dusty 00 form: INJ, ONCE, Dosing Weight 59.091, kg, Priority: STAT, Start date: 08/16/13 20:48:00, Stop date: 08/16/13 20:48:00(S obi as:MORPhin e Sulfate) Omnipaque 2012-10 No [facility] 86 mL, M emoria 350mg/ml 1-04 M Slimp Route: l 02:44: IVP, Drug Jackson Form: SOLN, Dosing Weight 59.091, kg, ONCALL, STAT, Start date: 08/16/13 20:44:00, Duration: 1 doses or times, Weight = 60 - 74kg -- "To be infused by Radiology Staff ONLY"Weigh t = 60 - 74kg -- "To be infused by Radiology Staff ONLY"(Same as:Omnipaq ue 350). Omnipaque 2012-10 No [place] 86 mL, M emoria 350mg/ml 1-04 M Slimp Route: l 02:44: IVP, Drug Jackson 00 Form: SOLN, Dosing Weight 59.091, kg, ONCALL, STAT, Start date: 08/16/13 20:44:00, Duration: 1 doses or times, Weight = 60 - 74kg -- "To be infused by Radiology Staff ONLY"Weigh t = 60 - 74kg -- "To be infused by Radiology Staff ONLY"(Same as:Omnipaq ue 350). morphine 2012-10 No [facility] 4 mg, 1 M emoria Sulfate 1-04 M Slimp mL, Route: l 02:01: IVP, Drug Jackson 00 form: INJ, ONCE, Dosing Weight 59.091, kg, Priority: STAT, Start date: 08/16/13 20:01:00, Stop date: 08/16/13 20:01:00(S obi as:MORPhin e Sulfate) NS (Bolus) 2012-10 No [facility] 1,000 mL, Memoria IV 1,000 mL 1-04 M Slimp Rate: l 02:01: 1,000 Jackson 00 ml/hr, Infuse over: 1 hr, Route: IV, Dosing Weight 59.091 kg, Total Volume: 1,000, Priority: STAT, Start date: 08/16/13 20:01:00, Duration: 1 doses or times, Stop date: 08/16/13 21:00:00, Bolus DoseBolus Dose morphine 2012-10 No [facility] 4 mg, 1 M emoria Sulfate 1-04 M Slimp mL, Route: l 02:01: IVP, Drug Dusty 00 form: INJ, ONCE, Dosing Weight 59.091, kg, Priority: STAT, Start date: 08/16/13 20:01:00, Stop date: 08/16/13 20:01:00(S obi as:MORPhin e Sulfate) NS (Bolus) 2012-10 No [facility] 1,000 mL, Memoria IV 1,000 mL 1-04 M Slimp Rate: l 02:01: 1,000 Dusty 00 ml/hr, Infuse over: 1 hr, Route: IV, Dosing Weight 59.091 kg, Total Volume: 1,000, Priority: STAT, Start date: 08/16/13 20:01:00, Duration: 1 doses or times, Stop date: 08/16/13 21:00:00, Bolus DoseBolus Dose [place] 2012-10 No 1 tab, PO, Memori a 10/325 oral 1-04 Q6H, PRN, l tablet 01:34: as needed [place] 07 for pain, Substituti on Allowed, Maintenanc e [place] 2012-10 No 1 tab, PO, Memori a 10/325 oral 1-04 Q6H, PRN, l tablet 01:34: as needed [place] 07 for pain, Substituti on Allowed, Maintenanc e Hydrocodone 2012-10 Yes ; Start Mem oria -Acetaminop 0-04 Date: l hen 5-325 05:00: 07/17/2013 He rmann MG Oral 00 (Active) Tablet Ibuprofen 2012-10 Yes ; Start Memor ia 800 MG Oral 0-04 Date: l Tablet 05:00: 07/17/2013 Kathy nn 00 (Active) Hydrocodone 2012-10 Yes ; Start Mem oria -Acetaminop 0-04 Date: l hen 5-325 05:00: 07/17/2013 He rmann MG Oral 00 (Active) Tablet Ibuprofen 2012-10 Yes ; Start Memor ia 800 MG Oral 0-04 Date: l Tablet 05:00: 07/17/2013 Kathy nn 00 (Active) No Active Yes No Active Mem oria Medications 06-14 Medication l 20:22: s Dusty 19 No Active Yes No Active Mem oria Medications 06-14 Medication l 20:22: s Dusty 19 Lyrica No Krislynn 100 mg, 1 Me moria 8-18 Valeria cap, l 21:00: [place] Route: PO, [place] 00 Drug form: CAP, Q8H, Dosing Weight 54.545, kg, Start date: 05/31/13 16:00:00, Duration: 30 day, Stop date: 06/30/13 8:00:00 Lyrica No Krislynn 100 mg, 1 Me moria 8-18 Valeria cap, l 21:00: [place] Route: PO, [place] 00 Drug form: CAP, Q8H, Dosing Weight 54.545, kg, Start date: 05/31/13 16:00:00, Duration: 30 day, Stop date: 06/30/13 8:00:00 Zoloft 2012- No Barbara 25 mg, 1 Jacoby hailey 8-18 Abigail tab, l 17:00: Pierce Route: PO, Kathy nn 00 Drug form: TAB, Q24H, Dosing Weight 54.545, kg, Start date: 05/31/13 12:00:00, Duration: 30 day, Stop date: 06/29/13 12:00:00 Zoloft 2013-0 No Barbara 25 mg, 1 Jacoby hailey 8-18 Abigail tab, l 17:00: Pierce Route: PO, Kathy nn 00 Drug form: TAB, Q24H, Dosing Weight 54.545, kg, Start date: 05/31/13 12:00:00, Duration: 30 day, Stop date: 06/29/13 12:00:00 [place] 2013-0 No Krislynn 1 tab, Memori a 10/325 oral 8-18 Valeria Route: PO, l tablet 14:28: [place] Drug Form: Herm ermelinda 00 TAB, Dosing Weight 54.545, kg, Q4H, PRN Pain, Start date: 05/31/13 9:28:00, Duration: 30 day, Stop date: 06/30/13 9:27:00 tramadol 2013-0 No Krislynn 100 mg, 2 Memoria 8-18 Valeria tab, l 14:28: [place] Route: PO, [place] 00 Drug form: TAB, Q6H, Dosing Weight 54.545, kg, PRN Pain, Start date: 05/31/13 9:28:00, Duration: 30 day, Stop date: 06/30/13 9:27:00 [place] 2013-0 No Krislynn 1 tab, Memori a 10/325 oral 8-18 Valeria Route: PO, l tablet 14:28: [place] Drug Form: Herm ermelinda 00 TAB, Dosing Weight 54.545, kg, Q4H, PRN Pain, Start date: 05/31/13 9:28:00, Duration: 30 day, Stop date: 06/30/13 9:27:00 tramadol 2013-0 No Krislynn 100 mg, 2 Memoria 8-18 Valeria tab, l 14:28: [place] Route: PO, [place] 00 Drug form: TAB, Q6H, Dosing Weight 54.545, kg, PRN Pain, Start date: 05/31/13 9:28:00, Duration: 30 day, Stop date: 06/30/13 9:27:00 Zosyn 2013-0 No Barbara 3.375 gm, Jacoby hailey 8-18 Abigail Route: l 10:00: Pierce IVPB, Drug Kathy nn 00 form: PDR/INJ, ABXQ6H, Dosing Weight 54.545, kg, Start date: 05/31/13 5:00:00, Duration: 30 day, Stop date: 06/29/13 23:00:00 Zosyn 2013-0 No Barbara 3.375 gm, Jacoby hailey 8-18 Abigail Route: l 10:00: Pierce IVPB, Drug Kathy nn 00 form: PDR/INJ, ABXQ6H, Dosing Weight 54.545, kg, Start date: 05/31/13 5:00:00, Duration: 30 day, Stop date: 06/29/13 23:00:00 meropenem 2013-0 No Barbara 500 mg, Me moria 8-18 Abigail Route: l 06:00: Pierce IVPB, Drug Kathy nn 00 form: PDR/INJ, ABXQ6H, Dosing Weight 54.545, kg, CrCL > = 50ml/min, Extended infusion, infuse over 3 hours, Start date: 05/31/13 1:00:00, Duration: 30 day, Stop date: 06/29/13 19:00:00 tobramycin 2013-0 No Barbara 60 mg, Me moria 8-18 Abigail Route: l 06:00: Pierce IVPB, Jackson 00 ABXQ8H, Dosing Weight 54.545, kg, Start date: 05/31/13 1:00:00, Duration: 30 day, Stop date: 06/29/13 17:00:00 meropenem 2013-0 No Barbara 500 mg, Me moria 8-18 Abigail Route: l 06:00: Pierce IVPB, Drug Kathy nn 00 form: PDR/INJ, ABXQ6H, Dosing Weight 54.545, kg, CrCL > = 50ml/min, Extended infusion, infuse over 3 hours, Start date: 05/31/13 1:00:00, Duration: 30 day, Stop date: 06/29/13 19:00:00 tobramycin 2013-0 No Barbara 60 mg, Me moria 8-18 Abigail Route: l 06:00: Pierce IVPB, Dusty 00 ABXQ8H, Dosing Weight 54.545, kg, Start date: 05/31/13 1:00:00, Duration: 30 day, Stop date: 06/29/13 17:00:00 Tylenol 2012-0 No Krislynn 1,000 mg, M emoria 05-31 Valeria 2 tab, l 05:50: [place] Route: PO, [place] 00 Drug form: TAB, Q6H, Dosing Weight 54.545, kg, PRN as needed for fever, Start date: 05/31/13 0:50:00, Duration: 30 day, Stop date: 06/30/13 0:49:00 Tylenol 2012-0 No Krislynn 1,000 mg, emoria 05-31 Valeria 2 tab, l 05:50: [place] Route: PO, [place] 00 Drug form: TAB, Q6H, Dosing Weight 54.545, kg, PRN as needed for fever, Start date: 05/31/13 0:50:00, Duration: 30 day, Stop date: 06/30/13 0:49:00 acetaminoph 2012-0 No Artur 975 mg, Memoria en 05-31 [place] Route: PO, l 05:44: Ilochonwu ONCE, Dosing Weight 54.545, kg, Priority: STAT, Start date: 05/31/13 0:44:00, Stop date: 05/31/13 0:44:00 acetaminoph 2012-0 No [place] 975 mg, Memoria en 05-31 [place] Route: PO, l 05:44: Ilochonwu ONCE, Dosing Weight 54.545, kg, Priority: STAT, Start date: 05/31/13 0:44:00, Stop date: 05/31/13 0:44:00 enoxaparin 2012-0 No Barbara 30 mg, 0.3 Memoria 18 Abigail mL, Route: l 04:00: Peirce SUB-Q, Jackson 00 Drug form: INJ, [id number], Dosing Weight 54.545, kg, Start date: 05/30/13 23:00:00, Duration: 30 day, Stop date: 06/29/13 11:00:00 enoxaparin 2013-0 No Barbara 30 mg, 0.3 Memoria 8-18 Abigail mL, Route: l 04:00: Pierce SUB-Q, Jackson 00 Drug form: INJ, [id number], Dosing Weight 54.545, kg, Start date: 05/30/13 23:00:00, Duration: 30 day, Stop date: 06/29/13 11:00:00 morphine 2013-0 No Krislynn 2 mg, 1 Me moria Sulfate 8-18 Valeria mL, Route: l 03:50: [place] IVP, Drug Dusty form: INJ, Q2H, Dosing Weight 54.545, kg, PRN Pain Score 7-10, Start date: 05/30/13 22:50:00, Duration: 30 day, Stop date: 06/29/13 22:49:00 morphine 2013-0 No Krislynn 2 mg, 1 Me moria Sulfate 8-18 Valeria mL, Route: l 03:50: [place] IVP, Drug Jackson 00 form: INJ, Q2H, Dosing Weight 54.545, kg, PRN Pain Score 7-10, Start date: 05/30/13 22:50:00, Duration: 30 day, Stop date: 06/29/13 22:49:00 ondansetron 2013-0 No Barbara 4 mg, 2 Memoria 8-18 Abigail mL, Route: l 03:49: Pierce IVP, Drug [place] n form: INJ, Q8H, Dosing Weight 54.545, kg, PRN Nausea & Vomiting, Start date: 05/30/13 22:49:00, Duration: 30 day, Stop date: 06/29/13 22:48:00 Phenergan 2013-0 No April Genaro 12.5 mg, Memoria 8-18 Ditto 0.5 mL, l 03:49: Route: Jackson 00 IVPB, Drug form: INJ, ONCE, Dosing Weight 54.545, kg, PRN Nausea & Vomiting, Start date: 05/30/13 22:49:00, Stop date: 06/29/13 22:48:00 ondansetron 2013-0 No Barbara 4 mg, 2 Memoria 8-18 Abigail mL, Route: l 03:49: Pierce IVP, Drug [place] n 00 form: INJ, Q8H, Dosing Weight 54.545, kg, PRN Nausea & Vomiting, Start date: 05/30/13 22:49:00, Duration: 30 day, Stop date: 06/29/13 22:48:00 Phenergan 2013-0 No April Genaro 12.5 mg, Memoria 8-18 Ditto 0.5 mL, l 03:49: Route: Jackson 00 IVPB, Drug form: INJ, ONCE, Dosing Weight 54.545, kg, PRN Nausea & Vomiting, Start date: 05/30/13 22:49:00, Stop date: 06/29/13 22:48:00 morphine 2013-0 No April Genaro 4 mg, 1 M emoria Sulfate 8-18 Ditto mL, Route: l 03:46: IVP, Drug Dusty 00 form: INJ, ONCE, Dosing Weight 54.545, kg, Start date: 05/30/13 22:46:00, Stop date: 05/30/13 22:46:00 morphine 2013-0 No April Genaro 4 mg, 1 M emoria Sulfate 8-18 Ditto mL, Route: l 03:46: IVP, Drug Jackson 00 form: INJ, ONCE, Dosing Weight 54.545, kg, Start date: 05/30/13 22:46:00, Stop date: 05/30/13 22:46:00 D5W 1/2NS + 2012-0 No Barbara 1,000 mL, Memoria KCL 20mEq/L 8-18 Abigail Rate: 80 l 1000ml 03:30: Pierce ml/hr, Jackson (Premix) 00 Infuse 1,000 mL over: 12.5 hr, Route: IV, Dosing Weight 54.545 kg, Total Volume: 1,000, Start date: 05/30/13 22:30:00, Duration: 30 day, Stop date: 06/29/13 22:29:00 Zosyn 2012-0 No Barbara 3.375 gm, Jacoby hailey 8-18 Abigail Route: l 03:30: Pierce IVPB, Drug Kathy nn 00 form: PDR/INJ, ONCE, Dosing Weight 54.545, kg, Priority: STAT, Start date: 05/30/13 22:30:00, Stop date: 05/30/13 22:30:00 D5W 1/2NS + 2013-0 No Barbara 1,000 mL, Memoria KCL 20mEq/L 8-18 Abigail Rate: 80 l 1000ml 03:30: Pierce ml/hr, Jackson (Premix) 00 Infuse 1,000 mL over: 12.5 hr, Route: IV, Dosing Weight 54.545 kg, Total Volume: 1,000, Start date: 05/30/13 22:30:00, Duration: 30 day, Stop date: 06/29/13 22:29:00 Zosyn 2012-0 No Barbara 3.375 gm, Jacoby hailey 8-18 Abigail Route: l 03:30: Pierce IVPB, Drug Kathy nn form: PDR/INJ, ONCE, Dosing Weight 54.545, kg, Priority: STAT, Start date: 05/30/13 22:30:00, Stop date: 05/30/13 22:30:00 morphine 2012-0 No Barbara 4 mg, 1 Mem oria Sulfate 8-18 Abigail mL, Route: l 03:25: Pierce IVP, Drug [place] n 00 form: INJ, Q4H, Dosing Weight 54.545, kg, PRN Pain Score 7-10, Start date: 05/30/13 22:25:00, Duration: 30 day, Stop date: 06/29/13 22:24:00 ondansetron 2012-0 No Barbara 4 mg, 2 Memoria 8-18 Abigail mL, Route: l 03:25: Pierce IVP, Drug [place] n 00 form: INJ, Q24H, Dosing Weight 54.545, kg, PRN Nausea & Vomiting, Start date: 05/30/13 22:25:00, Duration: 30 day, Stop date: 06/29/13 22:24:00 morphine 2012-0 No Barbara 4 mg, 1 Mem oria Sulfate 8-18 Abigail mL, Route: l 03:25: Pierce IVP, Drug [place] n 00 form: INJ, Q4H, Dosing Weight 54.545, kg, PRN Pain Score 7-10, Start date: 05/30/13 22:25:00, Duration: 30 day, Stop date: 06/29/13 22:24:00 ondansetron No Barbara 4 mg, 2 Memoria 8-18 Abigail mL, Route: l 03:25: Pierce IVP, Drug [place] n 00 form: INJ, Q24H, Dosing Weight 54.545, kg, PRN Nausea & Vomiting, Start date: 05/30/13 22:25:00, Duration: 30 day, Stop date: 06/29/13 22:24:00 Omnipaque 2012- No [place] 86 mL, Me moria 350mg/ml 8-18 [place] Route: l 02:50: Ilochonwu IVP, Drug Her jacobson 00 Form: SOLN, Dosing Weight 54.545, kg, ONCALL, STAT, Start date: 05/30/13 21:50:00, Duration: 1 doses or times, Dose = 2.2ml/kg, Max dose = 100ml -- "To be infused by Radiology Staff ONLY"Dose = 2.2ml/kg, Max dose = 100ml -- "To be infused by Radiology Staff ONLY" Omnipaque 2012- No [place] 86 mL, Me moria 350mg/ml 8-18 [place] Route: l 02:50: Ilochonwu IVP, Drug Her jacobson 00 Form: SOLN, Dosing Weight 54.545, kg, ONCALL, STAT, Start date: 05/30/13 21:50:00, Duration: 1 doses or times, Dose = 2.2ml/kg, Max dose = 100ml -- "To be infused by Radiology Staff ONLY"Dose = 2.2ml/kg, Max dose = 100ml -- "To be infused by Radiology Staff ONLY" NS (Bolus) No Barbara 1,000 mL, Memoria IV 1,000 mL 8-18 Abigail Rate: l 02:27: Pierce 1,000 Jackson 00 ml/hr, Infuse over: 1 hr, Route: IV, Dosing Weight 54.545 kg, Total Volume: 1,000, Priority: STAT, Start date: 05/30/13 21:27:00, Duration: 1 doses or times, Stop date: 05/30/13 22:26:00, Bolus DoseBolus Dose NS (Bolus) No Barbara 1,000 mL, Memoria IV 1,000 mL 8-18 Abigail Rate: l 02:27: Pierce 1,000 Dusty 00 ml/hr, Infuse over: 1 hr, Route: IV, Dosing Weight 54.545 kg, Total Volume: 1,000, Priority: STAT, Start date: 05/30/13 21:27:00, Duration: 1 doses or times, Stop date: 05/30/13 22:26:00, Bolus DoseBolus Dose ondansetron 2012- No Artur 4 mg, M emoria 8-18 [place] Route: l 02:25: Ilochonwu IVP, Drug Her jacobson 00 form: INJ, ONCE, Dosing Weight 54.545, kg, Priority: STAT, Start date: 05/30/13 21:25:00, Stop date: 05/30/13 21:25:00 ondansetron 2012- No [place] 4 mg, M emoria 8-18 [place] Route: l 02:25: Ilochonwu IVP, Drug Her jacobson 00 form: INJ, ONCE, Dosing Weight 54.545, kg, Priority: STAT, Start date: 05/30/13 21:25:00, Stop date: 05/30/13 21:25:00 NS (Bolus) No Artur 1,000 mL, Memoria IV 1,000 mL 8-18 [place] Rate: l 01:43: Ilochonwu 1,000 Jackson 00 ml/hr, Infuse over: 1 hr, Route: IV, Dosing Weight 54.545 kg, Total Volume: 1,000, Priority: STAT, Start date: 05/30/13 20:43:00, Duration: 1 doses or times, Stop date: 05/30/13 21:42:00, Bolus DoseBolus Dose NS (Bolus) No [place] 1,000 mL, Memoria IV 1,000 mL 8-18 [place] Rate: l 01:43: Ilochonwu 1,000 Dusty 00 ml/hr, Infuse over: 1 hr, Route: IV, Dosing Weight 54.545 kg, Total Volume: 1,000, Priority: STAT, Start date: 05/30/13 20:43:00, Duration: 1 doses or times, Stop date: 05/30/13 21:42:00, Bolus DoseBolus Dose ondansetron 2012-0 No [place] 4 mg, 2 Memoria 8-18 [place] mL, Route: l 01:40: Ilochonwu IVP, Drug Her jacobson 00 form: INJ, ONCE, Dosing Weight 54.545, kg, Priority: STAT, Start date: 05/30/13 20:40:00, Stop date: 05/30/13 20:40:00 morphine 2012-0 No [place] 4 mg, 1 Me moria Sulfate 8-18 [place] mL, Route: l 01:40: Ilochonwu IVP, Drug Her jacobson 00 form: INJ, ONCE, Dosing Weight 54.545, kg, Priority: STAT, Start date: 05/30/13 20:40:00, Stop date: 05/30/13 20:40:00 ondansetron 2012-0 No Artur 4 mg, 2 Memoria 8-18 [place] mL, Route: l 01:40: Ilochonwu IVP, Drug Her jacobson 00 form: INJ, ONCE, Dosing Weight 54.545, kg, Priority: STAT, Start date: 05/30/13 20:40:00, Stop date: 05/30/13 20:40:00 morphine 2012-0 No Artur 4 mg, 1 Me moria Sulfate 8-18 [place] mL, Route: l 01:40: Ilochonwu IVP, Drug Her jacobson 00 form: INJ, ONCE, Dosing Weight 54.545, kg, Priority: STAT, Start date: 05/30/13 20:40:00, Stop date: 05/30/13 20:40:00 NS (Bolus) 2012-0 No Rodrigo Axel 1,000 mL, Memoria IV 1,000 mL 8-18 Joseph Rate: l 01:22: 1,000 Jackson 00 ml/hr, Infuse over: 1 hr, Route: IV, Dosing Weight 54.545 kg, Total Volume: 1,000, Priority: STAT, Start date: 05/30/13 20:22:00, Duration: 1 doses or times, Stop date: 05/30/13 21:21:00, Bolus DoseBolus Dose NS (Bolus) 2012-0 No Rodrigo Axel 1,000 mL, Memoria IV 1,000 mL 818 Joseph Rate: l 01:22: 1,000 Jackson 00 ml/hr, Infuse over: 1 hr, Route: IV, Dosing Weight 54.545 kg, Total Volume: 1,000, Priority: STAT, Start date: 05/30/13 20:22:00, Duration: 1 doses or times, Stop date: 05/30/13 21:21:00, Bolus DoseBolus Dose Valium 2012-0 No Moni 5 mg, Memoria 8-07 [place] Route: PO, l 21:19: ONCE, Dosing Weight 68.182, kg, Priority: NOW, Start date: 05/20/13 16:19:00, Stop date: 05/20/13 16:19:00 Valium 2012-0 No Moni 5 mg, Memoria 8-07 [place] Route: PO, l 21:19: ONCE, Dosing Weight 68.182, kg, Priority: NOW, Start date: 05/20/13 16:19:00, Stop date: 05/20/13 16:19:00 tramadol 50 2013-0 Yes Moni 100 mg, 2 Memoria mg oral 8-07 Stano tab, PO, l tablet 20:26: Q6H, 30 Jackson 25 tab, Substituti on Allowed, TAB tramadol 50 2013-0 Yes Moni 100 mg, 2 Memoria mg oral 8-07 St[place] tab, PO, l tablet 20:26: Q6H, 30 Jackson 25 tab, Substituti on Allowed, TAB sertraline 2013-0 Yes Moni 100 mg, 1 Memoria 100 mg oral 8-07 Stano tab, PO, l tablet 20:26: Daily, 30 [place] n 23 tab, Substituti on Allowed, TAB sertraline 2012-0 Yes Moni 100 mg, 1 Memoria 100 mg oral 8-07 Stano tab, PO, l tablet 20:26: Daily, 30 [place] n 23 tab, Substituti on Allowed, TAB pregabalin 2012- Yes Moni 150 mg, 2 Memoria 75 mg oral 8-07 Stano cap, NG, l capsule 20:26: Q8H, 30 [place] 19 cap, Substituti on Allowed, CAP pregabalin 2012- Yes Moni 150 mg, 2 Memoria 75 mg oral 8-07 Stano cap, NG, l capsule 20:26: Q8H, 30 [place] 19 cap, Substituti on Allowed, CAP enoxaparin Yes Moni 30 mg, 0.3 Memoria 30 mg/0.3 8-07 Stano mL, SUB-Q, l mL 20:26: Q12H, 7 Jackson subcutaneou 06 mL, s solution Substituti on Allowed, INJ enoxaparin Yes Moni 30 mg, 0.3 Memoria 30 mg/0.3 8-07 Stano mL, SUB-Q, l mL 20:26: Q12H, 7 Jackson subcutaneou 06 mL, s solution Substituti on Allowed, INJ docusate 2012- Yes Moni 100 mg, 1 Me moria sodium 100 8-07 Stano cap, PO, l mg oral 20:26: BID, 30 Dusty capsule 04 cap, Substituti on Allowed, CAP docusate 2012-0 Yes Moni 100 mg, 1 Me moria sodium 100 8-07 Stano cap, PO, l mg oral 20:26: BID, 30 Dusty capsule 04 cap, Substituti on Allowed, CAP diazepam 5 Yes Moni 5 mg, 1 Me moria mg oral 8-07 Stano tab, NG, l tablet 20:25: Q12H, PRN, Kathy nn 58 10 tab, as needed for anxiety, Substituti on Allowed, TAB diazepam 5 2012-0 Yes Moni 5 mg, 1 Me moria mg oral 8-07 Stano tab, NG, l tablet 20:25: Q12H, PRN, Kathy nn 58 10 tab, as needed for anxiety, Substituti on Allowed, TAB celecoxib 2012- Yes Moni 200 mg, 2 M emoria 100 mg oral 8-07 Stano cap, NG, l capsule 20:25: Q12H, 30 [place] n 55 cap, Substituti on Allowed, CAP celecoxib Yes Moni 200 mg, 2 M emoria 100 mg oral 8-07 Stano cap, NG, l capsule 20:25: Q12H, 30 [place] n 55 cap, Substituti on Allowed, CAP acetaminoph Yes Moni 1-2 tab, Memoria en-hydrocod 8-07 Stano PO, Q4-6H, l one 325 20:25: PRN, 30 Dusty mg-10 mg 42 tab, Pain, oral tablet Substituti on Allowed, Maintenanc e, TAB acetaminoph Yes Moni 1-2 tab, Memoria en-hydrocod 8-07 Stano PO, Q4-6H, l one 325 20:25: PRN, 30 Dusty mg-10 mg 42 tab, Pain, oral tablet Substituti on Allowed, Maintenanc e, TAB Zoloft 2012-0 No Moni 100 mg, 1 Jacoby hailey 8-06 Stano tab, l 14:00: Route: PO, Jackson 00 Drug form: TAB, Daily, Dosing Weight 68.182, kg, Start date: 05/19/13 9:00:00, Duration: 30 day, Stop date: 06/17/13 9:00:00 Zoloft 2012-0 No Moni 100 mg, 1 Jacoby hailey 8-06 Stano tab, l 14:00: Route: PO, Jackson 00 Drug form: TAB, Daily, Dosing Weight 68.182, kg, Start date: 05/19/13 9:00:00, Duration: 30 day, Stop date: 06/17/13 9:00:00 [place] 2012-0 No Moni 1 tab, Memoria 10/325 oral 8-06 Stano Route: PO, l tablet 01:00: Drug Form: Kathy nn 00 TAB, Dosing Weight 68.182, kg, Q4H, Start date: 05/18/13 20:00:00, Duration: 30 day, Stop date: 06/17/13 16:00:00 [place] 2012-0 No Moni 1 tab, Memoria 10/325 oral 8-06 Stano Route: PO, l tablet 01:00: Drug Form: Kathy nn 00 TAB, Dosing Weight 68.182, kg, Q4H, Start date: 05/18/13 20:00:00, Duration: 30 day, Stop date: 06/17/13 16:00:00 acetaminoph 2013-0 No Moni 1 tab, Me moria en-hydrocod 8-05 Stano Route: PO, l one 325 21:52: Drug Form: Herm ermelinda mg-10 mg 00 TAB, oral tablet Dosing Weight 68.182, kg, Q4H, PRN Pain, Start date: 05/18/13 16:52:00, Duration: 30 day, Stop date: 06/17/13 16:51:00 acetaminoph 2013-0 No Moni 1 tab, Me moria en-hydrocod 8-05 Stano Route: PO, l one 325 21:52: Drug Form: Herm ermelinda mg-10 mg 00 TAB, oral tablet Dosing Weight 68.182, kg, Q4H, PRN Pain, Start date: 05/18/13 16:52:00, Duration: 30 day, Stop date: 06/17/13 16:51:00 tramadol 2013-0 No Moni 100 mg, 2 Me moria 8-05 Stano tab, l 17:00: Route: PO, Jackson Drug form: TAB, Q6H, Dosing Weight 68.182, kg, Start date: 05/18/13 12:00:00, Duration: 30 day, Stop date: 06/17/13 6:00:00 tramadol 2013-0 No Moni 100 mg, 2 Me moria 8-05 Stano tab, l 17:00: Route: PO, Dusty 00 Drug form: TAB, Q6H, Dosing Weight 68.182, kg, Start date: 05/18/13 12:00:00, Duration: 30 day, Stop date: 06/17/13 6:00:00 bisacodyl 2013-0 No Moni 10 mg, 2 Me moria 8-05 Stano tab, l 15:37: Route: PO, Dusty 00 Drug form: ECTAB, Daily, Dosing Weight 68.182, kg, PRN Constipati on, Start date: 05/18/13 10:37:00, Duration: 30 day, Stop date: 06/17/13 10:36:00 bisacodyl 2013-0 No Moni 10 mg, 2 Me moria 8-05 Stano tab, l 15:37: Route: PO, Dusty 00 Drug form: ECTAB, Daily, Dosing Weight 68.182, kg, PRN Constipati on, Start date: 05/18/13 10:37:00, Duration: 30 day, Stop date: 06/17/13 10:36:00 sodium 2012-0 No Pepper 5 mL, Memori a chloride 05-13 Maxwell-Vikram Route: l 0.9% 21:03: Christiansen INJ, Jackson Irrigation Dosing Weight 68.182, kg, [id number], PRN Line Flush, Start date: 05/13/13 16:03:00, Duration: 30 day, Stop date: 06/12/13 16:02:00 sodium 2012-0 No Pepper 5 mL, Memori a chloride 05-13 Maxwell-Vikram Route: l 0.9% 21:03: Christiansen INJ, Jackson Irrigation Dosing Weight 68.182, kg, [id number], PRN Line Flush, Start date: 05/13/13 16:03:00, Duration: 30 day, Stop date: 06/12/13 16:02:00 molasses No Tuyet 240 mL, Mem oria 05-12 Lara Route: NV, l 15:35: Flaco Drug Form: Marino SYRP, Dosing Weight 68.182, kg, ONCE, Milk of Molasses Enema, Start date: 05/12/13 10:35:00, Duration: 1 doses or times, Stop date: 05/12/13 10:35:00 molasses 0 No Tuyet 240 mL, Mem oria 05-12 Lara Route: NV, l 15:35: Flaco Drug Form: Dusty 00 Marino SYRP, Dosing Weight 68.182, kg, ONCE, Milk of Molasses Enema, Start date: 05/12/13 10:35:00, Duration: 1 doses or times, Stop date: 05/12/13 10:35:00 metoprolol No Cortez 12.5 mg, 1 Memoria tartrate 05-12 Mckay gimenez, Route: l 02:00: [place] PO, Drug form: TAB, BID, Dosing Weight 68.182, kg, Start date: 05/11/13 21:00:00, Duration: 30 day, Stop date: 06/10/13 17:00:00 metoprolol 2012-0 No Cortez 12.5 mg, 1 Memoria tartrate 05-12 Mckay ea, Route: l 02:00: [place] PO, Drug Kathy nn form: TAB, BID, Dosing Weight 68.182, kg, Start date: 05/11/13 21:00:00, Duration: 30 day, Stop date: 06/10/13 17:00:00 Omnipaque 2012-0 No Tuyet 78 mL, Mem oria 350mg/ml 05-10 Lara Route: l 22:38: Flaco IVP, Drug Dusty Marino Form: SOLN, Dosing Weight 68.182, kg, ONCALL, STAT, Start date: 05/10/13 17:38:00, Duration: 1 doses or times, Weight = 60 - 74kg -- "To be infused by Radiology Staff ONLY"Weigh t = 60 - 74kg -- "To be infused by Radiology Staff ONLY" Omnipaque 2012-0 No Tuyet 78 mL, Mem oria 350mg/ml 05-10 Lara Route: l 22:38: Flaco IVP, Drug Jackson Marino Form: SOLN, Dosing Weight 68.182, kg, ONCALL, STAT, Start date: 05/10/13 17:38:00, Duration: 1 doses or times, Weight = 60 - 74kg -- "To be infused by Radiology Staff ONLY"Weigh t = 60 - 74kg -- "To be infused by Radiology Staff ONLY" methadone 2012-0 No Cortez 2.5 mg, Jacoby hailey 05-10 Mckay 0.5 tab, l 21:00: [place] Route: PO, Her jacobson 00 Drug form: TAB, Q8H, Dosing Weight 68.182, kg, Start date: 05/10/13 16:00:00, Duration: 30 day, Stop date: 06/09/13 8:00:00 methadone 2012-0 No Cortez 2.5 mg, Jacoby hailey 05-10 Mckay 0.5 tab, l 21:00: [place] Route: PO, Her jacobson 00 Drug form: TAB, Q8H, Dosing Weight 68.182, kg, Start date: 05/10/13 16:00:00, Duration: 30 day, Stop date: 06/09/13 8:00:00 Zofran 2013-0 No Tuyet 4 mg, 2 Memor ia 7-28 Lara mL, Route: l 19:21: Flaco IV, Drug Dusty 00 Marino form: INJ, ONCE, Dosing Weight 68.182, kg, Start date: 05/10/13 14:21:00, Stop date: 05/10/13 14:21:00 Zofran 2012-0 No Tuyet 4 mg, 2 Memor ia 7-28 Lara mL, Route: l 19:21: Flaco IV, Drug Jackson 00 Marino form: INJ, ONCE, Dosing Weight 68.182, kg, Start date: 05/10/13 14:21:00, Stop date: 05/10/13 14:21:00 Kayexalate 2012-0 No Tuyet 15 gm, 60 Memoria 7-28 Lara mL, Route: l 17:00: Flaco PO, Drug Jackson 00 Marino form: SUSP, ONCE, Dosing Weight 68.182, kg, Start date: 05/10/13 12:00:00, Stop date: 05/10/13 12:00:00 [place] 2012-0 No Moni 2 tab, Memoria 10/325 oral 7-28 Stano Route: PO, l tablet 17:00: Drug Form: Kathy nn 00 TAB, Dosing Weight 68.182, kg, Q6H, Start date: 05/10/13 12:00:00, Duration: 30 day, Stop date: 06/09/13 6:00:00 Kayexalate 2012-0 No Tuyet 15 gm, 60 Memoria 7-28 Lara mL, Route: l 17:00: Flaco PO, Drug Dusty 00 Marino form: SUSP, ONCE, Dosing Weight 68.182, kg, Start date: 05/10/13 12:00:00, Stop date: 05/10/13 12:00:00 [place] 2013-0 No Moni 2 tab, Memoria 10/325 oral 7-28 Stano Route: PO, l tablet 17:00: Drug Form: Kathy nn 00 TAB, Dosing Weight 68.182, kg, Q6H, Start date: 05/10/13 12:00:00, Duration: 30 day, Stop date: 06/09/13 6:00:00 Kayexalate 2013-0 No Tuyet 15 gm, 60 Memoria 7-27 Lara mL, Route: l 22:00: Flaco PO, Drug Marino form: SUSP, Daily, Dosing Weight 68.182, kg, Start date: 05/09/13 17:00:00, Duration: 30 day, Stop date: 06/08/13 9:00:00 Kayexalate 2012-0 No Tuyet 15 gm, 60 Memoria 7-27 Lara mL, Route: l 22:00: Flaco PO, Drug Marino form: SUSP, Daily, Dosing Weight 68.182, kg, Start date: 05/09/13 17:00:00, Duration: 30 day, Stop date: 06/08/13 9:00:00 MiraLax 2013-0 No Mouayyad 17 gm, 1 Me moria 7-26 Zaza pkt, l 14:00: Route: PO, Dusty 00 Drug form: PWDR, Daily, Dosing Weight 68.182, kg, Start date: 05/08/13 9:00:00, Duration: 30 day, Stop date: 06/06/13 9:00:00 MiraLax 2013-0 No Mouayyad 17 gm, 1 Me moria 7-26 Zaza pkt, l 14:00: Route: PO, Dusty 00 Drug form: PWDR, Daily, Dosing Weight 68.182, kg, Start date: 05/08/13 9:00:00, Duration: 30 day, Stop date: 06/06/13 9:00:00 Diflucan 2012-0 No Moni 400 mg, Jacoby hailey 7-23 Stano 200 mL, l 16:00: Route: Jackson 00 IVPB, Drug form: INJ, [id number], Dosing Weight 68.182, kg, Start date: 05/05/13 11:00:00, Duration: 30 day, Stop date: 06/03/13 11:00:00 Diflucan 2013-0 No Moni 400 mg, Jacoby hailey 7-23 Stano 200 mL, l 16:00: Route: Jackson 00 IVPB, Drug form: INJ, [id number], Dosing Weight 68.182, kg, Start date: 05/05/13 11:00:00, Duration: 30 day, Stop date: 06/03/13 11:00:00 magnesium 2013-0 No Moni 2 gm, 50 Me moria sulfate 7-23 Stano mL, Route: l 15:26: IVPB, Drug form: INJ, ONCE, Dosing Weight 68.182, kg, Start date: 05/05/13 10:26:00, Duration: 1 doses or times, Stop date: 05/05/13 10:26:00, For Mg = 1.8 - 2 mg/dLFor Mg = 1.8 - 2 mg/dL magnesium 2012-0 No Moni 2 gm, 50 Me moria sulfate 7-23 Stano mL, Route: l 15:26: IVPB, Drug form: INJ, ONCE, Dosing Weight 68.182, kg, Start date: 05/05/13 10:26:00, Duration: 1 doses or times, Stop date: 05/05/13 10:26:00, For Mg = 1.8 - 2 mg/dLFor Mg = 1.8 - 2 mg/dL metoprolol 2012-0 No Tuyet 25 mg, 1 Memoria tartrate 7- Lara tab, l 02:00: Flaco Route: PO, Drug form: TAB, Q12H, Dosing Weight 68.182, kg, Start date: 05/04/13 21:00:00, Duration: 30 day, Stop date: 06/03/13 9:00:00 metoprolol 2013-0 No Tuyet 25 mg, 1 Memoria tartrate - Lara tab, l 02:00: Flaco Route: PO, Marino Drug form: TAB, Q12H, Dosing Weight 68.182, kg, Start date: 05/04/13 21:00:00, Duration: 30 day, Stop date: 06/03/13 9:00:00 Zoloft 2013-0 No Meghann 50 mg, Memori a - Ermelinda Chamberlain Route: [place], l 14:00: Daily, Dosing Weight 68.182, kg, Start date: 05/04/13 9:00:00, Duration: 30 day, Stop date: 06/02/13 9:00:00 Zoloft 2012-0 No Meghann 50 mg, Memori a 7- Ermelinda Bulmaro Route: [place], l 14:00: Daily, Jackson 00 Dosing Weight 68.182, kg, Start date: 05/04/13 9:00:00, Duration: 30 day, Stop date: 06/02/13 9:00:00 Merrem 2013-0 No Krislynn 500 mg, Jacoby hailey 7-21 Valeria Route: l 18:08: Mueck IVPB, Drug Guanako n 00 form: PDR/INJ, ABXQ6H, Dosing Weight 68.182, kg, CrCL > = 50ml/min, Extended infusion, infuse over 3 hours, Start date: 05/03/13 13:08:00, Duration: 30 day, Stop date: 06/02/13 9:00:00 Merrem 2013-0 No Krislynn 500 mg, Jacoby hailey 7-21 Valeria Route: l 18:08: Mueck IVPB, Drug Guanako n 00 form: PDR/INJ, ABXQ6H, Dosing Weight 68.182, kg, CrCL > = 50ml/min, Extended infusion, infuse over 3 hours, Start date: 05/03/13 13:08:00, Duration: 30 day, Stop date: 06/02/13 9:00:00 meropenem 2013-0 No Tigre 500 mg, Mem oria 7-21 Kailash Route: l 17:00: Collom IVPB, Drug Kathy nn 00 form: PDR/INJ, ABXQ6H, Dosing Weight 68.182, kg, CrCL > = 50ml/min, Extended infusion, infuse over 3 hours, Start date: 05/03/13 12:00:00, Duration: 30 day, Stop date: 06/02/13 6:00:00 meropenem 2013-0 No Tigre 500 mg, Mem oria 7-21 Kailash Route: l 17:00: Collom IVPB, Drug Kathy nn 00 form: PDR/INJ, ABXQ6H, Dosing Weight 68.182, kg, CrCL > = 50ml/min, Extended infusion, infuse over 3 hours, Start date: 05/03/13 12:00:00, Duration: 30 day, Stop date: 06/02/13 6:00:00 methadone 2012-0 No Tuyet 5 mg, 1 Me moria 7-20 Lara tab, l 14:00: Flaco Route: PO, Jackson 00 Marino Drug form: TAB, Q12H, Dosing Weight 68.182, kg, Start date: 05/02/13 9:00:00, Duration: 30 day, Stop date: 05/31/13 21:00:00 Dakins 2012-0 No Moni 1 appl, Memori a Quarter 7-20 Stano Route: l Strength 14:00: TOP, Drug Herm ermelinda Solution 00 Form: SOLN, Dosing Weight 68.182, kg, Daily, Start date: 05/02/13 9:00:00, Duration: 30 day, Stop date: 05/31/13 9:00:00 methadone 2012-0 No Tuyet 5 mg, 1 Me moria 7-20 Lara tab, l 14:00: Flaco Route: PO, Dusty 00 Marino Drug form: TAB, Q12H, Dosing Weight 68.182, kg, Start date: 05/02/13 9:00:00, Duration: 30 day, Stop date: 05/31/13 21:00:00 Dakins 2012-0 No Moni 1 appl, Memori a Quarter 7-20 Stano Route: l Strength 14:00: TOP, Drug Herm ermelinda Solution 00 Form: SOLN, Dosing Weight 68.182, kg, Daily, Start date: 05/02/13 9:00:00, Duration: 30 day, Stop date: 05/31/13 9:00:00 Ultram 50 2012-0 No Moni 50 mg, 1 Me moria mg oral 7-20 Stano tab, l tablet 13:40: Route: PO, Kathy nn 00 Drug form: TAB, Q6H, Dosing Weight 68.182, kg, PRN Pain, Start date: 05/02/13 8:40:00, Duration: 30 day, Stop date: 06/01/13 8:39:00 Ultram 50 2012-0 No Moni 50 mg, 1 Me moria mg oral 7-20 Stano tab, l tablet 13:40: Route: PO, Kathy nn 00 Drug form: TAB, Q6H, Dosing Weight 68.182, kg, PRN Pain, Start date: 05/02/13 8:40:00, Duration: 30 day, Stop date: 06/01/13 8:39:00 micafungin 2012-0 No Moni 100 mg, Me moria 7-19 Stano Route: IV, l 22:00: Drug form: Jackson INJ, [id number], Dosing Weight 68.182, kg, Start date: 05/01/13 17:00:00, Duration: 30 day, Stop date: 05/29/13 22:00:00 micafungin 2012-0 No Moni 100 mg, Me moria -19 Stano Route: IV, l 22:00: Drug form: Jackson 00 INJ, [id number], Dosing Weight 68.182, kg, Start date: 05/01/13 17:00:00, Duration: 30 day, Stop date: 05/29/13 22:00:00 Insulin 2012-0 No Naveen 3 unit, Memori a regular -19 Bulmaro 0.03 mL, l 20:06: Keon Route: Dusty 00 SUB-Q, Drug form: SOLN, TID-Before Meals, Dosing Weight 68.182, kg, PRN Blood Glucose Results, Start date: 05/01/13 15:06:00, Duration: 30 day, Stop date: 05/31/13 15:05:00 glucagon 2012-0 No Ted 1 mg, Memor ia - Sara Route: IM, l 20:06: Mel Drug form: He rmann PDR/INJ, PRN, Dosing Weight 68.182, kg, PRN Blood Glucose Results, Start date: 05/01/13 15:06:00, Duration: 30 day, Stop date: 05/31/13 15:05:00 Dextrose 2012-0 No Naveen 12.5 gm, Jacoby hailey 50% Syringe 05-01 Bulmaro 25 mL, l 20:06: Keon Route: Jackson 00 IVP, Drug Form: INJ, Dosing Weight 68.182, kg, PRN, PRN Blood Glucose Results, Start date: 05/01/13 15:06:00, Duration: 30 day, Stop date: 05/31/13 15:05:00 Insulin 2012-0 No Naveen 3 unit, Memori a regular 7-19 Bulmaro 0.03 mL, l 20:06: [place] Route: SUB-Q, Drug form: SOLN, TID-Before Meals, Dosing Weight 68.182, kg, PRN Blood Glucose Results, Start date: 05/01/13 15:06:00, Duration: 30 day, Stop date: 05/31/13 15:05:00 glucagon 2012- No Ted 1 mg, Memor ia - Sara Route: IM, l 20:06: Sabihason Drug form: He rm PDR/INJ, PRN, Dosing Weight 68.182, kg, PRN Blood Glucose Results, Start date: 05/01/13 15:06:00, Duration: 30 day, Stop date: 05/31/13 15:05:00 Dextrose 2012- No Naveen 12.5 gm, Jacoby hailey 50% Syringe 05-01 Bulmaro 25 mL, l 20:06: [place] Route: IVP, Drug Form: INJ, Dosing Weight 68.182, kg, PRN, PRN Blood Glucose Results, Start date: 05/01/13 15:06:00, Duration: 30 day, Stop date: 05/31/13 15:05:00 LR IV 1,000 2012-0 No Mouayyad 1,000 mL, Memoria mL 7-19 Zaza Rate: 30 l 15:50: ml/hr, Infuse over: 33.3 hr, Route: IV, Dosing Weight 68.182 kg, Total Volume: 1,000, Start date: 05/01/13 10:50:00, Stop date: 05/31/13 10:49:00 LR IV 1,000 2012-0 No Mouayyad 1,000 mL, Memoria mL 7-19 Zaza Rate: 30 l 15:50: ml/hr, Infuse over: 33.3 hr, Route: IV, Dosing Weight 68.182 kg, Total Volume: 1,000, Start date: 05/01/13 10:50:00, Stop date: 05/31/13 10:49:00 Zoloft 2012-0 No Moni 50 mg, 1 Memor ia -19 Stano tab, l 14:00: Route: PO, Drug form: TAB, Daily, Dosing Weight 68.182, kg, Start date: 05/01/13 9:00:00, Duration: 30 day, Stop date: 05/30/13 9:00:00 Zoloft 2012-0 No Moni 50 mg, 1 Memor ia - Stano tab, l 14:00: Route: PO, Dusty 00 Drug form: TAB, Daily, Dosing Weight 68.182, kg, Start date: 05/01/13 9:00:00, Duration: 30 day, Stop date: 05/30/13 9:00:00 Versed 2012-0 No Duke 2 mg, Memoria 7-18 Red Route: l 21:45: Bellister IVP, ONCE, He rm Dosing Weight 68.182, kg, Start date: 04/30/13 16:45:00, Stop date: 04/30/13 16:45:00 lidocaine-e 2012-0 No Duke 30 mL, Jacoby hailey pi 7- Red Route: l 1%-[id number] 21:45: Bellister SUB-Q, Jackson 00 Dosing Weight 68.182, kg, ONCE, Start date: 04/30/13 16:45:00, Stop date: 04/30/13 16:45:00 fentanyl 2012-0 No [facility] 100 Memoria 7-18 Red microgram, l 21:45: Bellister Route: IV, He rmann 00 ONCE, Dosing Weight 68.182, kg, Start date: 04/30/13 16:45:00, Stop date: 04/30/13 16:45:00 Versed 2012-0 No Duke 2 mg, Memoria 7-18 Red Route: l 21:45: Bellister IVP, ONCE, He rmann 00 Dosing Weight 68.182, kg, Start date: 04/30/13 16:45:00, Stop date: 04/30/13 16:45:00 lidocaine-e 2012-0 No Duke 30 mL, Jacoby hailey pi 7-18 Red Route: l 1%-[id number] 21:45: Bellister SUB-Q, Dusty 00 Dosing Weight 68.182, kg, ONCE, Start date: 04/30/13 16:45:00, Stop date: 04/30/13 16:45:00 fentanyl 2012-0 No [facility] 100 Memoria 7-18 Red microgram, l 21:45: Bellister Route: IV, He rmann 00 ONCE, Dosing Weight 68.182, kg, Start date: 04/30/13 16:45:00, Stop date: 04/30/13 16:45:00 lidocaine-e 2012-0 No Ravi Route: Will vidales 7-18 Bulmaro SUB-Q, l 1%-[id number] 21:22: Joann Drug Form: Jackson 00 SOLN, Dosing Weight 68.182, kg, ONCE, Start date: 04/30/13 16:22:00, Stop date: 04/30/13 16:22:00 lidocaine-e 2012-0 No Ravi Route: Will vidales 7-18 Bulmaro SUB-Q, l 1%-[id number] 21:22: Joann Drug Form: Jackson 00 SOLN, Dosing Weight 68.182, kg, ONCE, Start date: 04/30/13 16:22:00, Stop date: 04/30/13 16:22:00 METRONIDazo 2012-0 No Ted 500 mg, Memoria le 7-18 Sara 100 mL, l 18:00: [place] Route: Guanako n 00 IVPB, Drug form: INJ, ABXQ8H, Dosing Weight 68.182, kg, Start date: 04/30/13 13:00:00, Duration: 30 day, Stop date: 05/30/13 5:00:00 vancomycin 2012-0 No Ted 1 gm, Mem oria 7-18 Sara Route: l 18:00: [place] IVPB, Drug He rm 00 form: INJ, ABXQ6H, Dosing Weight 68.182, kg, Start date: 04/30/13 13:00:00, Duration: 30 day, Stop date: 05/30/13 5:00:00 METRONIDazo 2012-0 No Ted 500 mg, Memoria le 7-18 Sara 100 mL, l 18:00: [place] Route: Guanako n 00 IVPB, Drug form: INJ, ABXQ8H, Dosing Weight 68.182, kg, Start date: 04/30/13 13:00:00, Duration: 30 day, Stop date: 05/30/13 5:00:00 vancomycin 2012-0 No Ted 1 gm, Mem oria 04-30 Sara Route: l 18:00: [place] IVPB, Drug He rm form: INJ, ABXQ6H, Dosing Weight 68.182, kg, Start date: 04/30/13 13:00:00, Duration: 30 day, Stop date: 05/30/13 5:00:00 Omnipaque 2012-0 No Meghann 90 mL, Mem oria 350mg/ml 04-30 Ermelinda Chmaberlain Route: l 14:49: IVP, Drug Jackson 00 Form: SOLN, Dosing Weight 68.182, kg, ONCALL, STAT, Start date: 04/30/13 9:49:00, Duration: 1 doses or times, Stop date: 05/01/13 0:00:00, Dose = 2.2ml/kg, Max dose = 100ml -- "To be infused by Radiology Staff ONLY"Dose = 2.2ml/kg, Max dose = 100ml -- "To be infused by Radiology Staff ONLY" Omnipaque 2012-0 No Meghann 90 mL, Mem oria 350mg/ml 04-30 Ermelinda Chamberlain Route: l 14:49: IVP, Drug Dusty 00 Form: SOLN, Dosing Weight 68.182, kg, ONCALL, STAT, Start date: 04/30/13 9:49:00, Duration: 1 doses or times, Stop date: 05/01/13 0:00:00, Dose = 2.2ml/kg, Max dose = 100ml -- "To be infused by Radiology Staff ONLY"Dose = 2.2ml/kg, Max dose = 100ml -- "To be infused by Radiology Staff ONLY" cefepime 2012-0 No Tigre 1 gm, Memori a 04-30 Kailash Route: l 12:00: Collom IVPB, Drug Kathy nn form: INJ, ABXQ6H, Dosing Weight 68.182, kg, (CrCl >/= 50 ml/min), Start date: 04/30/13 7:00:00, Duration: 30 day, Stop date: 05/30/13 1:00:00 cefepime 2012-0 No Tigre 1 gm, Memori a 04-30 Kailash Route: l 12:00: Collom IVPB, Drug Kathy nn 00 form: INJ, ABXQ6H, Dosing Weight 68.182, kg, (CrCl >/= 50 ml/min), Start date: 04/30/13 7:00:00, Duration: 30 day, Stop date: 05/30/13 1:00:00 vancomycin 2013-0 No Kayode 2 gm, 500 Me moria 7-18 Thomas mL, Route: l 11:17: Lidia IVPB, Drug Herm ermelinda 00 form: SOLN, ONCE, Dosing Weight 68.182, kg, Start date: 04/30/13 6:17:00, Stop date: 04/30/13 6:17:00 vancomycin 2012-0 No Kayode 2 gm, 500 Me moria 7-18 Thomas mL, Route: l 11:17: Lidia IVPB, Drug Herm ermelinda 00 form: SOLN, ONCE, Dosing Weight 68.182, kg, Start date: 04/30/13 6:17:00, Stop date: 04/30/13 6:17:00 Valium 2013-0 No [place] 5 mg, 1 Memor ia 7-17 Elian Caal tab, l 02:00: Route: NGFayeDusty 00 Drug form: TAB, Q12H, Dosing Weight 68.182, kg, PRN as needed for anxiety, Start date: 04/28/13 21:00:00, Stop date: 05/28/13 9:00:00 Valium 2013-0 No [place] 5 mg, 1 Memor ia 7-17 Elian Caal tab, l 02:00: Route: NG Dusty 00 Drug form: TAB, Q12H, Dosing Weight 68.182, kg, PRN as needed for anxiety, Start date: 04/28/13 21:00:00, Stop date: 05/28/13 9:00:00 Protonix 2013-0 No Ravi 40 mg, Jacoby hailey 7-16 Bulmaro Route: l 02:00: Joann IVP, Drug Kathy nn 00 form: INJ, Q12H, Dosing Weight 68.182, kg, Start date: 04/27/13 21:00:00, Duration: 30 day, Stop date: 05/27/13 9:00:00 Protonix 2013-0 No Ravi 40 mg, Jacoby hailye 7-16 Bulmaro Route: l 02:00: Joann IVP, Drug Kathy form: INJ, Q12H, Dosing Weight 68.182, kg, Start date: 04/27/13 21:00:00, Duration: 30 day, Stop date: 05/27/13 9:00:00 acetaminoph No Jignesh 1,000 mg, Memoria en 7-15 Vipin Route: IV, l 17:00: Holton Q6H, Dosing Weight 68.182, kg, Start date: 04/27/13 12:00:00, Duration: 30 day, Stop date: 05/27/13 6:00:00 clonidine 2012- No Jignesh 0.2 mg, 1 Memoria 0.2 mg oral 7-15 Peter tab, l tablet 17:00: Luke Route: Jaquan FENG Drug form: TAB, Q4H, Dosing Weight 68.182, kg, Start date: 04/27/13 12:00:00, Duration: 30 day, Stop date: 05/27/13 8:00:00 acetaminoph No Mouayyad 1,000 mg, Memoria en 7-15 Zaza 2 tab, l 17:00: Route: NG Drug form: TAB, Q6H, Start date: 04/27/13 12:00:00, Duration: 30 day, Stop date: 05/27/13 6:00:00 acetaminoph 0 No Jignesh 1,000 mg, Memoria en 7-15 Vipin Route: IV, l 17:00: Luke Q6H, Dosing Weight 68.182, kg, Start date: 04/27/13 12:00:00, Duration: 30 day, Stop date: 05/27/13 6:00:00 clonidine 2012-0 No Jignesh 0.2 mg, 1 Memoria 0.2 mg oral 7-15 Peter tab, l tablet 17:00: Luke Route: Jaquan FENG Drug form: TAB, Q4H, Dosing Weight 68.182, kg, Start date: 04/27/13 12:00:00, Duration: 30 day, Stop date: 05/27/13 8:00:00 acetaminoph 2012-0 No Mouayyad 1,000 mg, Memoria en 7-15 Zaza 2 tab, l 17:00: Route: NGDusty Drug form: TAB, Q6H, Start date: 04/27/13 12:00:00, Duration: 30 day, Stop date: 05/27/13 6:00:00 Lyrica 2013-0 No Moni 150 mg, 2 Jacoby hailey 7-15 Stano cap, l 15:00: Route: NGFayeJackson 00 Drug form: CAP, Q8H, Dosing Weight 68.182, kg, Start date: 04/27/13 10:00:00, Stop date: 05/27/13 8:00:00 Celebrex 2013-0 No Jignesh 200 mg, 2 M emoria 7-15 Peter cap, l 15:00: [place] Route: NG Drug form: CAP, Q12H, Dosing Weight 68.182, kg, Start date: 04/27/13 10:00:00, Duration: 30 day, Stop date: 05/27/13 9:00:00 Lyrica 2013-0 No Moni 150 mg, 2 Jacoby hailey 7-15 Stano cap, l 15:00: Route: NGFayeJackson 00 Drug form: CAP, Q8H, Dosing Weight 68.182, kg, Start date: 04/27/13 10:00:00, Stop date: 05/27/13 8:00:00 Celebrex 2013-0 No Jignesh 200 mg, 2 M emoria 7-15 Peter cap, l 15:00: Luke Route: NGFaye ermelinda Drug form: CAP, Q12H, Dosing Weight 68.182, kg, Start date: 04/27/13 10:00:00, Duration: 30 day, Stop date: 05/27/13 9:00:00 sterile 2012-0 No Moni 1.2 mL, Memor ia water 7-14 Stano Route: IV, l 14:03: Drug Form: Jackson INJ, Q4H, PRN Other -See Comment, Start date: 04/26/13 9:03:00, Duration: 30 day, Stop date: 05/26/13 9:02:00 sterile 2012-0 No Moni 1.2 mL, Memor ia water 7-14 Stano Route: IV, l 14:03: Drug Form: Jackson 00 INJ, Q4H, PRN Other -See Comment, Start date: 04/26/13 9:03:00, Duration: 30 day, Stop date: 05/26/13 9:02:00 Valium 2013-0 No Tigre 5 mg, 1 Memori a 7-14 Kailash tab, l 14:00: [place] Route: PO, Kathy nn Drug form: TAB, TID, Dosing Weight 68.182, kg, Start date: 04/26/13 9:00:00, Duration: 30 day, Stop date: 05/25/13 17:00:00 clonidine 2013-0 No Jignesh 0.2 mg, 1 Memoria 0.2 mg oral 7-14 Peter tab, l tablet 14:00: [place] Route: PO, He rmann Drug form: TAB, TID, Dosing Weight 68.182, kg, Start date: 04/26/13 9:00:00, Duration: 30 day, Stop date: 05/25/13 17:00:00 Valium 2013-0 No Tigre 5 mg, 1 Memori a 7-14 Kailash tab, l 14:00: Collom Route: PO, Kathy nn Drug form: TAB, TID, Dosing Weight 68.182, kg, Start date: 04/26/13 9:00:00, Duration: 30 day, Stop date: 05/25/13 17:00:00 clonidine 2013-0 No Jignesh 0.2 mg, 1 Memoria 0.2 mg oral 7-14 Peter tab, l tablet 14:00: Luke Route: POJaquan rm Drug form: TAB, TID, Dosing Weight 68.182, kg, Start date: 04/26/13 9:00:00, Duration: 30 day, Stop date: 05/25/13 17:00:00 Valium 2013-0 No Moni 5 mg, 1 Memori a 7-14 Stano tab, l 13:49: Route: PO, Dusty 00 Drug form: TAB, QID, Dosing Weight 68.182, kg, PRN as needed for anxiety, Start date: 04/26/13 8:49:00, Duration: 30 day, Stop date: 05/26/13 8:48:00 Valium 2013-0 No Moni 5 mg, 1 Memori a - Stano tab, l 13:49: Route: PO, Dusty 00 Drug form: TAB, QID, Dosing Weight 68.182, kg, PRN as needed for anxiety, Start date: 04/26/13 8:49:00, Duration: 30 day, Stop date: 05/26/13 8:48:00 [place] 5/325 2012-0 No Jignesh 1 tab, M emoria oral tablet 04-26 Vipin Route: PO, l 13:42: Luke Drug Form: Herm ermelinda 00 TAB, Dosing Weight 68.182, kg, Q6H, PRN as needed for pain, Start date: 04/26/13 8:42:00, Duration: 30 day, Stop date: 05/26/13 8:41:00 [place] 5/325 2012-0 No Jignesh 1 tab, M emoria oral tablet 04-26 Vipin Route: PO, l 13:42: Luke Drug Form: Herm ermelinda 00 TAB, Dosing Weight 68.182, kg, Q6H, PRN as needed for pain, Start date: 04/26/13 8:42:00, Duration: 30 day, Stop date: 05/26/13 8:41:00 Geodon 2012-0 No Moni 10 mg, Memoria 04-26 Stano Route: IM, l 13:41: Drug form: Jackson 00 PDR/INJ, Q4H, Dosing Weight 68.182, kg, PRN Other -See Comment, Start date: 04/26/13 8:41:00, Duration: 30 day, Stop date: 05/26/13 8:40:00, anxiety and agitation Geodon 2012-0 No Moni 10 mg, Memoria - Stano Route: IM, l 13:41: Drug form: Jackson 00 PDR/INJ, Q4H, Dosing Weight 68.182, kg, PRN Other -See Comment, Start date: 04/26/13 8:41:00, Duration: 30 day, Stop date: 05/26/13 8:40:00, anxiety and agitation pantoprazol 2012- No Ted 100 mL, Memoria e 80 mg + 04-25 Sara Rate: 10 l Sodium 15:27: [place] ml/hr, Herm ermelinda Chloride 00 Infuse 0.9% IV 100 over: 10 mL hr, Route: IVPB, Dosing Weight 68.182 kg, Total Volume: 100, Infuse at 8 mg / hr for 72 hours for GI bleeding, Start date: 04/25/13 10:27:00, Duration: 72 hr, Stop date: 04/28/13 10:26:00 pantoprazol No Ted 100 mL, Memoria e 80 mg + 04-25 Sara Rate: 10 l Sodium 15:27: [place] ml/hr, Herm ermelinda Chloride 00 Infuse 0.9% IV 100 over: 10 mL hr, Route: IVPB, Dosing Weight 68.182 kg, Total Volume: 100, Infuse at 8 mg / hr for 72 hours for GI bleeding, Start date: 04/25/13 10:27:00, Duration: 72 hr, Stop date: 04/28/13 10:26:00 tetanus/dip No Bobo 0.5 ml, Mem oria htheria/per 04-24 Route: IM, l tussis, 18:39: Anny Drug Form: Dusty acel (Tdap) 00 INJ, kg, 5 units-2.5 ONCE, units-18.5 Start mcg/0.5 mL date: intramuscul 04/24/13 ar 13:39:00, suspensio Stop date: 04/24/13 13:39:00(T dap ) For Adolecent and Adult use For IM Use. Same as: Adacel (Tdap) tetanus/dip No Bobo 0.5 ml, Mem oria htheria/per 04-24 Gage Route: IM, l tussis, 18:39: Anny Drug Form: Dusty acel (Tdap) 00 INJ, kg, 5 units-2.5 ONCE, units-18.5 Start mcg/0.5 mL date: intramuscul 04/24/13 ar 13:39:00, suspensio Stop date: 04/24/13 13:39:00(T dap ) For Adolecent and Adult use For IM Use. Same as: Adacel (Tdap) LR IV 1,000 No Ted 1,000 mL, Memoria mL 7-12 Sara Rate: l 14:43: [place] 1,000 Dusty 00 ml/hr, Infuse over: 1 hr, Route: IV, Dosing Weight 68.182 kg, Total Volume: 1,000, Start date: 04/24/13 9:43:00, Duration: 30 day, Stop date: 05/24/13 9:42:00 LR IV 1,000 2013-0 No Ted 1,000 mL, Memoria mL 7-12 Sara Rate: l 14:43: [place] 1,000 Jackson 00 ml/hr, Infuse over: 1 hr, Route: IV, Dosing Weight 68.182 kg, Total Volume: 1,000, Start date: 04/24/13 9:43:00, Duration: 30 day, Stop date: 05/24/13 9:42:00 Lactated 2013-0 No Tigre 500 mL, Jacoby hailey Ringers 7-12 Kailash Rate: 999 l (Bolus) IV 05:54: Collom ml/hr, Her jacobson 500 mL 00 Infuse over: 0.5 hr, Route: IV, Dosing Weight 68.182 kg, Total Volume: 500, Priority: NOW, Start date: 04/24/13 0:54:00, Stop date: 05/24/13 0:53:00 Lactated 2013-0 No Tigre 500 mL, Jacoby hailey Ringers 7-12 Kailash Rate: 999 l (Bolus) IV 05:54: Collom ml/hr, Her jacobson 500 mL 00 Infuse over: 0.5 hr, Route: IV, Dosing Weight 68.182 kg, Total Volume: 500, Priority: NOW, Start date: 04/24/13 0:54:00, Stop date: 05/24/13 0:53:00 Protonix 2012-0 No Ted 40 mg, Jacoby hailey 7-12 Sara Route: l 02:00: [place] IVP, Drug Her jacobson 00 form: INJ, Q12H, Dosing Weight 68.182, kg, Start date: 04/23/13 21:00:00, Duration: 30 day, Stop date: 05/23/13 9:00:00 Protonix 2012-0 No Ted 40 mg, Jacoby hailey 7-12 Sara Route: l 02:00: [place] IVP, Drug Her jacobson 00 form: INJ, Q12H, Dosing Weight 68.182, kg, Start date: 04/23/13 21:00:00, Duration: 30 day, Stop date: 05/23/13 9:00:00 acetaminoph 2012-0 No Tigre 1,000 mg, Memoria en 10 mg/mL 7 Kailash 100 mL, l intravenous 01:33: Collom Route: IV, Jackson solution 00 Drug form: INJ, ONCE, Dosing Weight 68.182, kg, Priority: NOW, Start date: 04/23/13 20:33:00, Stop date: 04/23/13 20:33:00 acetaminoph 2012- No Tigre 1,000 mg, Memoria en 10 mg/mL 7 Kailash 100 mL, l intravenous 01:33: Collom Route: IV, Jackson solution 00 Drug form: INJ, ONCE, Dosing Weight 68.182, kg, Priority: NOW, Start date: 04/23/13 20:33:00, Stop date: 04/23/13 20:33:00 Lactated 2012-0 No Tigre 1,000 mL, Me moria Ringers IV 04-24 Kailash Rate: 100 l 1,000 mL 01:31: Collom ml/hr, Kathy nn 00 Infuse over: 10 hr, Route: IV, Dosing Weight 68.182 kg, Total Volume: 1,000, Start date: 04/23/13 20:31:00, Duration: 30 day, Stop date: 05/23/13 20:30:00 Lactated 2012-0 No Tigre 1,000 mL, Me moria Ringers IV 04-24 Kailash Rate: 100 l 1,000 mL 01:31: Collom ml/hr, Kathy nn 00 Infuse over: 10 hr, Route: IV, Dosing Weight 68.182 kg, Total Volume: 1,000, Start date: 04/23/13 20:31:00, Duration: 30 day, Stop date: 05/23/13 20:30:00 FENTanyl No Jignesh 1,000 Memor ia 1000 mcg in 7-12 Peter microgram, l 20 mL 00:11: Luke 20 mL, Dusty (titrate) 00 Rate: IV 1,000 Titrate as microgram directed, Dosing Weight 68.182, kg, Route: IV, Total Volume: 20 ml, Duration: 30 day, Stop date: 05/23/13 19:10:00, Replace Every: 24 hr FENTanyl No Jignesh 1,000 Memor ia 1000 mcg in 12 Peter microgram, l 20 mL 00:11: Holton 20 mL, Jackson (titrate) 00 Rate: IV 1,000 Titrate as microgram directed, Dosing Weight 68.182, kg, Route: IV, Total Volume: 20 ml, Duration: 30 day, Stop date: 05/23/13 19:10:00, Replace Every: 24 hr fentanyl No Ted 50 Memori a 7-11 Sara microgram, l 22:00: [place] 1 mL, Dusty 00 Route: IV, Drug form: INJ, ONCALL, Dosing Weight 68.182, kg, Start date: 04/23/13 17:00:00 fentanyl No Ted 50 Memori a 7-11 Sara microgram, l 22:00: [place] 1 mL, Jackson 00 Route: IV, Drug form: INJ, ONCALL, Dosing Weight 68.182, kg, Start date: 04/23/13 17:00:00 LR IV 1,000 No Ted 1,000 mL, Memoria mL 7-11 Sara Rate: l 21:34: [place] 1,000 Jackson 00 ml/hr, Infuse over: 1 hr, Route: IV, Dosing Weight 68.182 kg, Total Volume: 1,000, Start date: 04/23/13 16:34:00, Duration: 1 doses or times, Stop date: 04/23/13 17:33:00 LR IV 1,000 No Ted 1,000 mL, Memoria mL 7-11 Sara Rate: l 21:34: [place] 1,000 Jackson 00 ml/hr, Infuse over: 1 hr, Route: IV, Dosing Weight 68.182 kg, Total Volume: 1,000, Start date: 04/23/13 16:34:00, Duration: 1 doses or times, Stop date: 04/23/13 17:33:00 vancomycin No Ravi 1 gm, Mem oria - Bulmaro Route: l 21:00: Joann IVPB, Drug Herm ermelinda 00 form: INJ, ABXQ8H, Dosing Weight 68.182, kg, Start date: 04/23/13 16:00:00, Stop date: 04/29/13 23:00:00 vancomycin 2012- No Ravi 1 gm, Mem oria 04-23 Bulmaro Route: l 21:00: Joann IVPB, Drug Herm ermelinda 00 form: INJ, ABXQ8H, Dosing Weight 68.182, kg, Start date: 04/23/13 16:00:00, Stop date: 04/29/13 23:00:00 LR IV 1,000 No [facility] 1,000 mL, M emoria mL 04-23 Red Rate: l 17:40: Bellister 1,000 Dusty 00 ml/hr, Infuse over: 1 hr, Route: IV, Dosing Weight 68.182 kg, Total Volume: 1,000, Start date: 04/23/13 12:40:00, Duration: 1 doses or times, Stop date: 04/23/13 13:39:00 LR IV 1,000 No Duke 1,000 mL, M emoria mL 04-23 Red Rate: l 17:40: Bellister 1,000 Dusty 00 ml/hr, Infuse over: 1 hr, Route: IV, Dosing Weight 68.182 kg, Total Volume: 1,000, Start date: 04/23/13 12:40:00, Duration: 1 doses or times, Stop date: 04/23/13 13:39:00 Omnipaque No Duke 100 mL, Memor ia 350mg/ml 04-23 Red Route: l 17:33: Bellister IVP, Drug Her jacobson Form: SOLN, Dosing Weight 68.182, kg, ONCALL, STAT, Start date: 04/23/13 12:33:00, Duration: 1 doses or times, Stop date: 04/24/13 0:00:00, Dose = 2.2ml/kg, Max dose = 100ml -- "To be infused by Radiology Staff ONLY"Dose = 2.2ml/kg, Max dose = 100ml -- "To be infused by Radiology Staff ONLY" Omnipaque No Duke 100 mL, Memor ia 350mg/ml 04-23 Red Route: l 17:33: Bellister IVP, Drug Her jacobson 00 Form: SOLN, Dosing Weight 68.182, kg, ONCALL, STAT, Start date: 04/23/13 12:33:00, Duration: 1 doses or times, Stop date: 04/24/13 0:00:00, Dose = 2.2ml/kg, Max dose = 100ml -- "To be infused by Radiology Staff ONLY"Dose = 2.2ml/kg, Max dose = 100ml -- "To be infused by Radiology Staff ONLY" vancomycin No Meghann 2 gm, Mem oria + Sodium 7-11 Ermelinda Chamberlain Route: l Chloride 12:17: IVPB, Dusty 0.9% IV 500 00 ONCE, mL Start date: 04/23/13 7:17:00, Stop date: 04/23/13 7:17:00 vancomycin No Meghann 2 gm, Mem oria + Sodium 7-11 Ermelinda Chamberlain Route: l Chloride 12:17: IVPB, Dusty 0.9% IV 500 00 ONCE, mL Start date: 04/23/13 7:17:00, Stop date: 04/23/13 7:17:00 Flagyl No Ravi 500 mg, Memor ia 7-11 Bulmaro 100 mL, l 12:00: Joann Route: Dusty 00 IVPB, Drug form: INJ, ABXQ8H, Dosing Weight 68.182, kg, Start date: 04/23/13 7:00:00, Stop date: 04/29/13 23:00:00 cefepime 0 No Ravi 1 gm, Memor ia 7-11 Bulmaro Route: l 12:00: Joann IVPB, Drug Herm ermelinda 00 form: INJ, ABXQ6H, Dosing Weight 68.182, kg, (CrCl >/= 50 ml/min), Start date: 04/23/13 7:00:00, Stop date: 04/29/13 23:00:00 Flagyl 0 No Ravi 500 mg, Memor ia 7-11 Bulmaro 100 mL, l 12:00: Joann Route: Jackson 00 IVPB, Drug form: INJ, ABXQ8H, Dosing Weight 68.182, kg, Start date: 04/23/13 7:00:00, Stop date: 04/29/13 23:00:00 cefepime 2012-0 No Ravi 1 gm, Memor ia 7- Bulmaro Route: l 12:00: Joann IVPB, Drug Herm form: INJ, ABXQ6H, Dosing Weight 68.182, kg, (CrCl >/= 50 ml/min), Start date: 04/23/13 7:00:00, Stop date: 04/29/13 23:00:00 Motrin 2012-0 No [place] 400 mg, 20 Me moria 7-11 Elian Caal mL, Route: l 00:54: NG, Drug Dusty 00 form: SUSP, ONCE, Dosing Weight 68.182, kg, Start date: 04/22/13 19:54:00, Stop date: 04/22/13 19:54:00 Motrin 2012-0 No [place] 400 mg, 20 Me moria 7-11 Elian Caal mL, Route: l 00:54: NG, Drug Dusty 00 form: SUSP, ONCE, Dosing Weight 68.182, kg, Start date: 04/22/13 19:54:00, Stop date: 04/22/13 19:54:00 hydrochloro 2012-0 No Ted 1 tab, M emoria thiazide-lo 7-10 Sara Route: PO, l sartan 25 18:49: [place] Drug Form: Jackson mg-100 mg 00 TAB, oral tablet Dosing Weight 68.182, kg, Daily, Start date: 04/22/13 13:49:00, Duration: 30 day, Stop date: 05/22/13 9:00:00 hydrochloro 2012-0 No Ted 1 tab, M emoria thiazide-lo 7-10 Sara Route: PO, l sartan 25 18:49: [place] Drug Form: Dusty mg-100 mg 00 TAB, oral tablet Dosing Weight 68.182, kg, Daily, Start date: 04/22/13 13:49:00, Duration: 30 day, Stop date: 05/22/13 9:00:00 potassium 2012-0 No Vira 2 pkt, Jacoby hailey phosphate-s 04-22 Ramírez Route: NG, l odium 17:00: Drug Form: [place] n phosphate 00 PDR/REC, 250 mg-278 Q6H, Start mg-164 mg date: oral powder 04/22/13 12:00:00, Duration: 30 day, Stop date: 05/22/13 6:00:00 potassium 2012-0 No Vira 2 pkt, Jacoby hailey phosphate-s 7-10 Ramírez Route: NG, l odium 17:00: Drug Form: [place] n phosphate 00 PDR/REC, 250 mg-278 Q6H, Start mg-164 mg date: oral powder 04/22/13 12:00:00, Duration: 30 day, Stop date: 05/22/13 6:00:00 Dulcolax 2012-0 No Moni 10 mg, 1 Mem oria Laxative 7-10 Stano supp, l 16:00: Route: NVDusty Drug form: SUPP, Daily, Start date: 04/22/13 11:00:00, Duration: 30 day, Stop date: 06/21/13 9:00:00 Dulcolax 2012-0 No Moni 10 mg, 1 Mem oria Laxative 7-10 Stano supp, l 16:00: Route: NVDusty Drug form: SUPP, Daily, Start date: 04/22/13 11:00:00, Duration: 30 day, Stop date: 06/21/13 9:00:00 methadone 2012-0 No Jignesh 5 mg, 1 Me moria 7-10 Peter tab, l 15:30: [place] Route: Faye FENG Drug form: TAB, Q8H, Dosing Weight 68.182, kg, Start date: 04/22/13 10:30:00, Stop date: 05/22/13 8:00:00 clonidine 2012-0 No Ted 0.1 mg, 1 Memoria 7-10 Sara tab, l 15:30: Mel Route: Jaquan FENG Drug form: TAB, Q4H, Dosing Weight 68.182, kg, Start date: 04/22/13 10:30:00, Duration: 30 day, Stop date: 05/22/13 8:00:00 methadone 2012-0 No Jignesh 5 mg, 1 Me moria 7-10 Peter tab, l 15:30: Luke Route: Faye FENG ermelinda 00 Drug form: TAB, Q8H, Dosing Weight 68.182, kg, Start date: 04/22/13 10:30:00, Stop date: 05/22/13 8:00:00 clonidine 2012-0 No Ted 0.1 mg, 1 Memoria 7-10 Sara tab, l 15:30: [place] Route: NG, Jaquan rmann 00 Drug form: TAB, Q4H, Dosing Weight 68.182, kg, Start date: 04/22/13 10:30:00, Duration: 30 day, Stop date: 05/22/13 8:00:00 propofol 10 2012-0 No Jignesh 1,000 mg, Memoria mg/ml 7-10 Peter 100 mL, l (titrate) 15:21: Luke Rate: Herm ermelinda 1,000 mg 00 Titrate as directed, Dosing Weight 68.182, kg, Route: IV, Total Volume: 100 ml, Start date: 04/22/13 10:21:00, Duration: 30 day, Stop date: 05/22/13 10:20:00, Replace Every: 24 hr propofol 10 2012-0 No Jignesh 1,000 mg, Memoria mg/ml 7-10 Peter 100 mL, l (titrate) 15:21: [place] Rate: Herm ermelinda 1,000 mg 00 Titrate as directed, Dosing Weight 68.182, kg, Route: IV, Total Volume: 100 ml, Start date: 04/22/13 10:21:00, Duration: 30 day, Stop date: 05/22/13 10:20:00, Replace Every: 24 hr Lovenox 2012-0 No Ted 30 mg, 0.3 M emoria 7-10 Sara mL, Route: l 14:00: [place] SUB-Q, [place] n 00 Drug form: INJ, Q12H, Dosing Weight 68.182, kg, Start date: 04/22/13 9:00:00, Duration: 30 day, Stop date: 06/21/13 4:00:00 Lovenox 2012-0 No Ted 30 mg, 0.3 M emoria 7-10 Sara mL, Route: l 14:00: [place] SUB-Q, [place] n 00 Drug form: INJ, Q12H, Dosing Weight 68.182, kg, Start date: 04/22/13 9:00:00, Duration: 30 day, Stop date: 06/21/13 4:00:00 propofol 10 No Tigre 1,000 mg, Memoria mg/ml 7-10 Kailash 100 mL, l (titrate) 04:27: Collom Rate: Kathy nn 1,000 mg 00 titrate to sedation, Dosing Weight 68.182, kg, Route: IV, Total Volume: 100 ml, Start date: 04/21/13 23:27:00, Duration: 30 day, Stop date: 05/21/13 23:26:00, Replace Every: 12 hr propofol 10 No Tigre 1,000 mg, Memoria mg/ml 7-10 Kailash 100 mL, l (titrate) 04:27: Collom Rate: Kathy nn 1,000 mg 00 titrate to sedation, Dosing Weight 68.182, kg, Route: IV, Total Volume: 100 ml, Start date: 04/21/13 23:27:00, Duration: 30 day, Stop date: 05/21/13 23:26:00, Replace Every: 12 hr ibuprofen No Gil 400 mg, 20 M emoria 100 mg/5 mL 7-10 Romeo mL, Route: l oral 04:03: Monica ROBINS, Drug Herm ermelinda suspension 00 form: SUSP, ONCE, Dosing Weight 68.182, kg, Start date: 04/21/13 23:03:00, Stop date: 04/21/13 23:03:00 ibuprofen 2012- No Gil 400 mg, 20 M emoria 100 mg/5 mL 7-10 Romeo mL, Route: l oral 04:03: Monica ROBINS, Drug Herm ermelinda suspension 00 form: SUSP, ONCE, Dosing Weight 68.182, kg, Start date: 04/21/13 23:03:00, Stop date: 04/21/13 23:03:00 Lactated 2012-0 No Gil 1,000 mL, Mem oria Ringers 7-10 Romeo Rate: l (Bolus) IV 04:02: Monica 1,000 H ermann 1,000 mL 00 ml/hr, Infuse over: 1 hr, Route: IV, Dosing Weight 68.182 kg, Total Volume: 1,000, Start date: 04/21/13 23:02:00, Duration: 30 day, Stop date: 05/21/13 23:01:00 Lactated 2013-0 No Gil 1,000 mL, Mem oria Ringers 7-10 Romeo Rate: l (Bolus) IV 04:02: Ghamarian 1,000 H ermann 1,000 mL 00 ml/hr, Infuse over: 1 hr, Route: IV, Dosing Weight 68.182 kg, Total Volume: 1,000, Start date: 04/21/13 23:02:00, Duration: 30 day, Stop date: 05/21/13 23:01:00 morphine 2013-0 No Gil 4 mg, 1 Memor ia Sulfate 7-10 Romeo mL, Route: l 01:32: Ghamarian IVP, Drug Her jacobson 00 form: INJ, ONCE, Dosing Weight 68.182, kg, Start date: 04/21/13 20:32:00, Stop date: 04/21/13 20:32:00 morphine 2012-0 No Gil 4 mg, 1 Memor ia Sulfate 7-10 Romeo mL, Route: l 01:32: Ghamarian IVP, Drug Her jacobson 00 form: INJ, ONCE, Dosing Weight 68.182, kg, Start date: 04/21/13 20:32:00, Stop date: 04/21/13 20:32:00 LR IV 1,000 2012-0 No Duke 1,000 mL, M emoria mL - Red Rate: l 05:37: Bellister 1,000 Jackson 00 ml/hr, Infuse over: 1 hr, Route: IV, Dosing Weight 68.182 kg, Total Volume: 1,000, Start date: 04/21/13 0:37:00, Duration: 1 doses or times, Stop date: 04/21/13 1:36:00 LR IV 1,000 2012-0 No Duke 1,000 mL, M emoria mL - Red Rate: l 05:37: Bellister 1,000 Jackson 00 ml/hr, Infuse over: 1 hr, Route: IV, Dosing Weight 68.182 kg, Total Volume: 1,000, Start date: 04/21/13 0:37:00, Duration: 1 doses or times, Stop date: 04/21/13 1:36:00 Ancef 2013-0 No Valeria 2 gm, 50 Jacoby hailey 7-08 Marcie mL, Route: l 21:00: Tariq IVPB, Drug Kathy nn 00 form: INJ, ONCE, Dosing Weight 68.182, kg, Start date: 04/20/13 16:00:00, Duration: 1 doses or times, Stop date: 04/20/13 16:00:00 Ancef 2013-0 No Valeria 2 gm, 50 Jacoby hailey 7-08 Marcie mL, Route: l 21:00: Tariq IVPB, Drug Kathy nn 00 form: INJ, ONCE, Dosing Weight 68.182, kg, Start date: 04/20/13 16:00:00, Duration: 1 doses or times, Stop date: 04/20/13 16:00:00 bisacodyl 2013-0 No Jignesh 10 mg, 2 M emoria 04-20 Peter tab, l 14:00: [place] Route: NV, Herm ermelinda 00 Drug form: ECTAB, Daily, Dosing Weight 68.182, kg, Start date: 04/20/13 9:00:00, Duration: 30 day, Stop date: 05/19/13 9:00:00 bisacodyl 2013-0 No Jignesh 10 mg, 2 M emoria 04-20 Peter tab, l 14:00: [place] Route: NV, Herm ermelinda 00 Drug form: ECTAB, Daily, Dosing Weight 68.182, kg, Start date: 04/20/13 9:00:00, Duration: 30 day, Stop date: 05/19/13 9:00:00 potassium 2013-0 No Duke 30 mmol, Jacoby hailey phosphate + 7-08 Red 10 mL, l Sodium 11:15: Bellister Route: Herm ermelinda Chloride 00 IVPB, 0.9% IV 250 ONCE, mL Dosing Weight 68.182, kg, Start date: 04/20/13 6:15:00, Stop date: 04/20/13 6:15:00 potassium 2013-0 No Duke 30 mmol, Jacoby hailey phosphate + 7-08 Red 10 mL, l Sodium 11:15: Bellister Route: Herm ermelinda Chloride 00 IVPB, 0.9% IV 250 ONCE, mL Dosing Weight 68.182, kg, Start date: 04/20/13 6:15:00, Stop date: 04/20/13 6:15:00 Lovenox 2012-0 No Meghann 30 mg, 0.3 M emoria 7 Ermelinda Chamberlain mL, Route: l 02:00: SUB-Q, Jackson 00 Drug form: INJ, Q12H, Dosing Weight 68.182, kg, Start date: 04/19/13 21:00:00, Duration: 30 day, Stop date: 05/19/13 9:00:00 Lovenox 2013-0 No Meghann 30 mg, 0.3 M emoria 04-20 Ermelinda Chamberlain mL, Route: l 02:00: SUB-Q, Jackson Drug form: INJ, Q12H, Dosing Weight 68.182, kg, Start date: 04/19/13 21:00:00, Duration: 30 day, Stop date: 05/19/13 9:00:00 [facility]ate 2013-0 No [facility] [address] [facility] Vipin cap, l 22:00: Luke Route: PO, Herm ermelinda 00 Drug form: CAP, BID, Dosing Weight 68.182, kg, Start date: 04/19/13 17:00:00, Duration: 30 day, Stop date: 06/18/13 9:00:00 docusate 2013-0 No Jignesh 100 mg, 1 M emoria 04-19 Peter cap, l 22:00: Luke Route: PO, Herm ermelinda 00 Drug form: CAP, BID, Dosing Weight 68.182, kg, Start date: 04/19/13 17:00:00, Duration: 30 day, Stop date: 06/18/13 9:00:00 Neutra-Phos 2013-0 No [facility] 2 pkt, Jacoby hailey - Red Route: PO, l 21:30: Bellister Drug Form: Jaquan josue PDR/REC, Dosing Weight 68.182, kg, TID-Before Meals, Start date: 04/19/13 16:30:00, Duration: 30 day, Stop date: 05/19/13 11:30:00 Neutra-Phos 2013-0 No [facility] 2 pkt, Jacoby hailey - Red Route: PO, l 21:30: Bellister Drug Form: Jaquan joselo PDR/REC, Dosing Weight 68.182, kg, TID-Before Meals, Start date: 04/19/13 16:30:00, Duration: 30 day, Stop date: 05/19/13 11:30:00 heparin 2012-0 No Meghann 5,000 Memori a 7-07 Ermelinda Chamberlain unit, 1 l 21:00: mL, Route: Dusty 00 SUB-Q, Drug form: INJ, Q8H, Dosing Weight 68.182, kg, Start date: 04/19/13 16:00:00, Duration: 30 day, Stop date: 05/19/13 8:00:00 heparin 2012-0 No Meghann 5,000 Memori a 7-07 Ermelinda Chamberlain unit, 1 l 21:00: mL, Route: Jackson 00 SUB-Q, Drug form: INJ, Q8H, Dosing Weight 68.182, kg, Start date: 04/19/13 16:00:00, Duration: 30 day, Stop date: 05/19/13 8:00:00 Roxicodone 2012-0 No Tigre 10 mg, 10 Memoria 7-07 Kailash mL, Route: l 19:45: Belkys ROBINS, Drug form: LIQ, Q4H, Start date: 04/19/13 14:45:00, Duration: 30 day, Stop date: 05/19/13 12:00:00 Roxicodone 2012-0 No Tigre 10 mg, 10 Memoria 7-07 Kailash mL, Route: l 19:45: Belkys ROBINS, Drug form: LIQ, Q4H, Start date: 04/19/13 14:45:00, Duration: 30 day, Stop date: 05/19/13 12:00:00 Tylenol 2012-0 No Ted 975 mg, Jacoby hailey 7-07 Sara 30.45 mL, l 19:30: Mel Route: Jaquan ROBINS Drug form: LIQ, Q6H, Start date: 04/19/13 14:30:00, Duration: 30 day, Stop date: 05/19/13 12:00:00 Roxicodone 2012-0 No Rober 5 mg, 5 Me moria 7-07 Huntlye Christiano mL, Route: l 19:30: JULIENNE Drug Dusty 00 form: LIQ, Q4H, Start date: 04/19/13 14:30:00, Duration: 30 day, Stop date: 05/19/13 12:00:00 Tylenol 2012-0 No Ted 975 mg, Jacoby hailey 7- Sara 30.45 mL, l 19:30: Sabihason Route: NJJaquan rm Drug form: LIQ, Q6H, Start date: 04/19/13 14:30:00, Duration: 30 day, Stop date: 05/19/13 12:00:00 Roxicodone 2012-0 No Rober 5 mg, 5 Me moria 7- Huntley Christiano mL, Route: l 19:30: JULIENNE, Drug Dusty 00 form: LIQ, Q4H, Start date: 04/19/13 14:30:00, Duration: 30 day, Stop date: 05/19/13 12:00:00 Tylenol 2012-0 No Meghann 975 mg, Jacoby hailey 7- Ermelinda Chamberlain 30.45 mL, l 17:00: Route: Faye ROBINS Drug form: LIQ, Q6H, Dosing Weight 68.182, kg, Start date: 04/19/13 12:00:00, Duration: 30 day, Stop date: 05/19/13 6:00:00 OXYcodone 5 2012-0 No Meghann 10 mg, 10 Memoria mg 7- Ermelinda Chamberlain mL, Route: l immediate 17:00: JULIENNE Drug [facility] form: LIQ, Q4H, Dosing Weight 68.182, kg, Start date: 04/19/13 12:00:00, Duration: 30 day, Stop date: 05/19/13 8:00:00 magnesium 2012-0 No Duke 2 gm, 50 Jacoby hailey sulfate 7- Red mL, Route: l 17:00: Bellister IVPB, Drug [facility] form: INJ, Q2H, Dosing Weight 68.182, kg, Total dose = 4 gm, Start date: 04/19/13 12:00:00, Duration: 2 doses or times, Stop date: 04/19/13 14:00:00 Tylenol 2012-0 No Meghann 975 mg, Jacoby hailey 7- Ermelinda Chamberlain 30.45 mL, l 17:00: Route: NJ, Jackson 00 Drug form: LIQ, Q6H, Dosing Weight 68.182, kg, Start date: 04/19/13 12:00:00, Duration: 30 day, Stop date: 05/19/13 6:00:00 OXYcodone 5 2012-0 No Meghann 10 mg, 10 Memoria mg 7- Ermelinda Chamberlain mL, Route: l immediate 17:00: NJ, Drug Herm ermelinda release 00 form: LIQ, Q4H, Dosing Weight 68.182, kg, Start date: 04/19/13 12:00:00, Duration: 30 day, Stop date: 05/19/13 8:00:00 magnesium 2012-0 No Duke 2 gm, 50 Jacoby hailey sulfate - Red mL, Route: l 17:00: Bellister IVPB, Drug He rmann form: INJ, Q2H, Dosing Weight 68.182, kg, Total dose = 4 gm, Start date: 04/19/13 12:00:00, Duration: 2 doses or times, Stop date: 04/19/13 14:00:00 hydrocortis 2012-0 No Jignesh 100 mg, 2 Memoria one - Peter mL, Route: l 05:00: [place] IV, Drug [place] n 00 form: PDR/INJ, Q8H, Dosing Weight 68.182, kg, Start date: 04/19/13 0:00:00, Duration: 30 day, Stop date: 05/18/13 16:00:00 hydrocortis 2012-0 No Jignesh 100 mg, 2 Memoria one - Peter mL, Route: l 05:00: Luke IV, Drug [place] n 00 form: PDR/INJ, Q8H, Dosing Weight 68.182, kg, Start date: 04/19/13 0:00:00, Duration: 30 day, Stop date: 05/18/13 16:00:00 METRONIDazo 2012-0 No Jignesh 500 mg, Memoria le 7- Peter 100 mL, l 02:00: Luke Route: Dusty 00 IVPB, Drug form: INJ, ABXQ8H, Dosing Weight 68.182, kg, Start date: 04/18/13 21:00:00, Duration: 30 day, Stop date: 05/18/13 13:00:00 cefepime 2012-0 No Jignesh 1 gm, Memor ia 7- Vipin Route: l 02:00: Holton IVPB, Drug Herm ermelinda 00 form: INJ, [id number], Dosing Weight 68.182, kg, (CrCl 30 - 49 ml/min), Start date: 04/18/13 21:00:00, Duration: 30 day, Stop date: 05/18/13 9:00:00 METRONIDazo 2012-0 No Jignesh 500 mg, Memoria le 7- Vipin 100 mL, l 02:00: Holton Route: Jackson 00 IVPB, Drug form: INJ, [id number], Dosing Weight 68.182, kg, Start date: 04/18/13 21:00:00, Duration: 30 day, Stop date: 05/18/13 13:00:00 cefepime 2012-0 No Jignesh 1 gm, Memor ia 04-19 Vipin Route: l 02:00: Luke IVPB, Drug Herm ermelinda 00 form: INJ, [id number], Dosing Weight 68.182, kg, (CrCl 30 - 49 ml/min), Start date: 04/18/13 21:00:00, Duration: 30 day, Stop date: 05/18/13 9:00:00 norepinephr 0 No Meghann 234 mL, Memoria ine 16 mg + 7-07 Ermelinda Chamberlain Rate: Use l Sodium 01:25: as Jackson Chloride 00 directed, 0.9% Dosing (titrate) Weight 234 mL 68.182, kg, Route: IV, Total Volume: 250 mL, Stop date: 05/18/13 20:24:00, Replace Every: 24 hr norepinephr 0 No Meghann 234 mL, Memoria ine 16 mg + 7-07 Ermelinda Chamberlain Rate: Use l Sodium 01:25: as Jackson Chloride 00 directed, 0.9% Dosing (titrate) Weight 234 mL 68.182, kg, Route: IV, Total Volume: 250 mL, Stop date: 05/18/13 20:24:00, Replace Every: 24 hr calcium 2012-0 No Meghann 3,000 mg, Me moria gluconate + 7-07 Ermelinda Chamberlain 30 mL, l Sodium 01:12: Route: Jackson Chloride 00 IVPB, 0.9% IV 100 ONCE, mL Dosing Weight 68.182, kg, Start date: 04/18/13 20:12:00, Stop date: 04/18/13 20:12:00 calcium 2013-0 No Meghann 3,000 mg, Me moria gluconate + 7-07 Ermelinda Chamberlain 30 mL, l Sodium 01:12: Route: Jackson Chloride 00 IVPB, 0.9% IV 100 ONCE, mL Dosing Weight 68.182, kg, Start date: 04/18/13 20:12:00, Stop date: 04/18/13 20:12:00 Lactated 2012-0 No Duke 500 mL, Memori a Ringers 7-07 Red Rate: 500 l (Bolus) IV 00:37: Bellister ml/hr, Jackson 500 mL 00 Infuse over: 1 hr, Route: IV, Dosing Weight 68.182 kg, Total Volume: 500, Start date: 04/18/13 19:37:00, Duration: 30 day, Stop date: 05/18/13 19:36:00 Lactated 2012-0 No Duke 500 mL, Memori a Ringers 7-07 Red Rate: 500 l (Bolus) IV 00:37: Bellister ml/hr, Dusty 500 mL 00 Infuse over: 1 hr, Route: IV, Dosing Weight 68.182 kg, Total Volume: 500, Start date: 04/18/13 19:37:00, Duration: 30 day, Stop date: 05/18/13 19:36:00 Ancef 2012-0 No Elise Issa 1 gm, Memoria 04-18 Danny Route: l 22:05: IVPB, Dusty 00 ONCE, Dosing Weight 68.182, kg, Start date: 04/18/13 17:05:00, Duration: 1 doses or times, Stop date: 04/18/13 17:05:00 Ancef 2012-0 No Elise Issa 1 gm, Memoria 04-18 Danny Route: l 22:05: IVPB, Jackson 00 ONCE, Dosing Weight 68.182, kg, Start date: 04/18/13 17:05:00, Duration: 1 doses or times, Stop date: 04/18/13 17:05:00 methadone 2012-0 No Meghann 10 mg, 1 M emoria 7- Ermelinda Chamberlain tab, l 21:00: Route: PO, Jackson 00 Drug form: TAB, Q8H, Dosing Weight 68.182, kg, Start date: 04/18/13 16:00:00, Duration: 30 day, Stop date: 05/18/13 8:00:00 methadone 2012-0 No Meghann 10 mg, 1 M emoria - Ermelinda Chamberlain tab, l 21:00: Route: PO, Drug form: TAB, Q8H, Dosing Weight 68.182, kg, Start date: 04/18/13 16:00:00, Duration: 30 day, Stop date: 05/18/13 8:00:00 Tylenol 2012-0 No Meghann 975 mg, 3 Me moria - Ermelinda Chamberlain tab, l 17:00: Route: PO, Drug form: TAB, Q6H, Dosing Weight 68.182, kg, Start date: 04/18/13 12:00:00, Duration: 30 day, Stop date: 05/18/13 6:00:00 Tylenol 2012-0 No Meghann 975 mg, 3 Me moria - Ermelinda Chamberlain tab, l 17:00: Route: PO, Drug form: TAB, Q6H, Dosing Weight 68.182, kg, Start date: 04/18/13 12:00:00, Duration: 30 day, Stop date: 05/18/13 6:00:00 Xanax 2012-0 No Substituti Memori a 7-06 on Allowed l 14:25: Dusty 56 Xanax 2012-0 No Substituti Memori a 7-06 on Allowed l 14:25: Dusty 56 Lexapro 2012-0 No Substituti Jacoby hailey 7-06 on Allowed l 14:25: Dusty 10 Lexapro 2012-0 No Substituti Jacoby hailey 7-06 on Allowed l 14:25: Dusty 10 Pepcid 20 0 No Ted 20 mg, 1 M emoria mg oral 04-18 Sara tab, l tablet 14:00: Mel Route: PO, Drug form: TAB, Q12H, Dosing Weight 68.182, kg, Start date: 04/18/13 9:00:00, Duration: 30 day, Stop date: 05/17/13 21:00:00 Pepcid 20 2012- No Ted 20 mg, 1 M emoria mg oral 04-18 Sara tab, l tablet 14:00: [place] Route: PO, Dusty 00 Drug form: TAB, Q12H, Dosing Weight 68.182, kg, Start date: 04/18/13 9:00:00, Duration: 30 day, Stop date: 05/17/13 21:00:00 Insulin No Ted 4 unit, Jacoby hailey regular 7-06 Sara 0.04 mL, l 13:31: [place] Route: [place] n 00 SUB-Q, Drug form: SOLN, PRN, Dosing Weight 68.182, kg, PRN Abnormal Lab Result, Start date: 04/18/13 8:31:00, Duration: 30 day, Stop date: 05/18/13 8:30:00, For FSBG 126mg/dL - 140mg/dLFo r FSBG 126mg/dL - 140mg/dL Dextrose No Ted 12.5 gm, Me moria 50% Syringe 04-18 Sara 25 mL, l 13:31: [place] Route: [place] n 00 IVP, Drug Form: INJ, Dosing Weight 68.182, kg, PRN, PRN Abnormal Lab Result, Start date: 04/18/13 8:31:00, Duration: 30 day, Stop date: 05/18/13 8:30:00, For FSBG 40mg/dL - 60mg/dLFor FSBG 40mg/dL - 60mg/dL Insulin No Ted 4 unit, Jacoby hailey regular 7-06 Sara 0.04 mL, l 13:31: [place] Route: [place] n 00 SUB-Q, Drug form: SOLN, PRN, Dosing Weight 68.182, kg, PRN Abnormal Lab Result, Start date: 04/18/13 8:31:00, Duration: 30 day, Stop date: 05/18/13 8:30:00, For FSBG 126mg/dL - 140mg/dLFo r FSBG 126mg/dL - 140mg/dL Dextrose 2012- No Ted 12.5 gm, Me moria 50% Syringe 7- Sara 25 mL, l 13:31: [place] Route: [place] n 00 IVP, Drug Form: INJ, Dosing Weight 68.182, kg, PRN, PRN Abnormal Lab Result, Start date: 04/18/13 8:31:00, Duration: 30 day, Stop date: 05/18/13 8:30:00, For FSBG 40mg/dL - 60mg/dLFor FSBG 40mg/dL - 60mg/dL Tylenol No Tigre 1,000 mg, Mem oria 7-06 Kailash 100 mL, l 10:28: [place] Route: PO, Kathy nn 00 Drug form: INJ, Q6H, Dosing Weight 68.182, kg, PRN as needed for fever, Start date: 04/18/13 5:28:00, Duration: 30 day, Stop date: 05/18/13 5:27:00 Tylenol 2012- No Tigre 1,000 mg, Mem oria 7-06 Kailash 100 mL, l 10:28: [place] Route: PO, Kathy nn 00 Drug form: INJ, Q6H, Dosing Weight 68.182, kg, PRN as needed for fever, Start date: 04/18/13 5:28:00, Duration: 30 day, Stop date: 05/18/13 5:27:00 Haldol 2012-0 No Ted 5 mg, 1 Memor ia 7-06 Sara mL, Route: l 08:25: [place] IM, Drug Herm ermelinda 00 form: INJ, Q4H, Dosing Weight 68.182, kg, PRN Anxiety, Start date: 04/18/13 3:25:00, Duration: 30 day, Stop date: 05/18/13 3:24:00 Haldol 2012-0 No Ted 5 mg, 1 Memor ia 7-06 Sara mL, Route: l 08:25: [place] IM, Drug Herm ermelinda 00 form: INJ, Q4H, Dosing Weight 68.182, kg, PRN Anxiety, Start date: 04/18/13 3:25:00, Duration: 30 day, Stop date: 05/18/13 3:24:00 FENTanyl - 2012-0 No Jignesh 100 Jacoby hailey one time - Peter microgram, l ICU bolus 07:36: Luke 2 mL, Herm ermelinda dose 00 Route: IVP, Drug form: INJ, ONCE, Dosing Weight 68.182, kg, Start date: 04/18/13 2:36:00, Stop date: 04/18/13 2:36:00 FENTanyl - 2012-0 No Jignesh 100 Jacoby hailey one time - Peter microgram, l ICU bolus 07:36: Luke 2 mL, Herm ermelinda dose 00 Route: IVP, Drug form: INJ, ONCE, Dosing Weight 68.182, kg, Start date: 04/18/13 2:36:00, Stop date: 04/18/13 2:36:00 ketamine 2012- No Jignesh 100 mg, Mem oria 100mg/NS 04-18 Peter 100 mL, l 100ml 06:57: [place] Rate: See Herm ermelinda (1mg/ml) 00 Order 100 mg Comments, Dosing Weight 68.182, kg, Route: IV, Total Volume: 100 mL, Duration: 30 day, Stop date: 05/18/13 1:56:00, Replace Every: 24 hr ketamine 2012-0 No Jignesh 100 mg, Mem oria 100mg/NS 04-18 Peter 100 mL, l 100ml 06:57: [place] Rate: See Herm ermelinda (1mg/ml) 00 Order 100 mg Comments, Dosing Weight 68.182, kg, Route: IV, Total Volume: 100 mL, Duration: 30 day, Stop date: 05/18/13 1:56:00, Replace Every: 24 hr Sodium 2012-0 No Ted 500 mL, Memor ia Chloride 3% 04-18 Sara Rate: 30 l IV 500 mL 02:56: [place] ml/hr, H ermann 00 Infuse over: 16.7 hr, Route: IV, Dosing Weight 68.182 kg, Total Volume: 500, Start date: 04/17/13 21:56:00, Duration: 30 day, Stop date: 05/17/13 21:55:00 Sodium 2012-0 No Ted 500 mL, Mem[facility] ia Chloride 3% 04-18 Sara Rate: 30 l IV 500 mL 02:56: [place] ml/hr, H ermann 00 Infuse over: 16.7 hr, Route: IV, Dosing Weight 68.182 kg, Total Volume: 500, Start date: 04/17/13 21:56:00, Duration: 30 day, Stop date: 05/17/13 21:55:00 Sodium 2013-0 No Rasheed 500 mL, Memoria Chloride 5% 7-06 Ye Rate: 30 l IV 500 mL 02:51: Bogert ml/hr, Herm ermelinda 00 Infuse over: 16.7 hr, Route: IV, Dosing Weight 68.182 kg, Total Volume: 500, Start date: 04/17/13 21:51:00, Duration: 30 day, Stop date: 05/17/13 21:50:00 Sodium 2013-0 No Rasheed 500 mL, Memoria Chloride 5% 7-06 Ye Rate: 30 l IV 500 mL 02:51: Bogert ml/hr, Herm ermelinda 00 Infuse over: 16.7 hr, Route: IV, Dosing Weight 68.182 kg, Total Volume: 500, Start date: 04/17/13 21:51:00, Duration: 30 day, Stop date: 05/17/13 21:50:00 sodium 2013-0 No Rasheed 1,000 mL, Mem[facility] ia chloride 7-06 Ye Rate: l 23.4% INJ 02:35: Bogert Infuse as H ermann 256 mEq + 00 directed, sodium Dosing acetate 2 Weight mEq/mL 68.182, intravenous kg, Route: solution IV, Total 182 mEq + Volume: sterile 1,000 mL, Duration: 30 day, Stop date: 05/17/13 21:35:00, Replace Every: 24 hr sodium 2013-0 No Rasheed 1,000 mL, Memor ia chloride 7-06 Ye Rate: l 23.4% INJ 02:35: [place]ert Infuse as H ermann 256 mEq + 00 directed, sodium Dosing acetate 2 Weight mEq/mL 68.182, intravenous kg, Route: solution IV, Total 182 mEq + Volume: sterile 1,000 mL, Duration: 30 day, Stop date: 05/17/13 21:35:00, Replace Every: 24 hr LR IV 1,000 2013-0 No Rasheed 1,000 mL, Memoria mL 7-06 Ye Rate: 100 l 01:39: Bogert ml/hr, Dusty 00 Infuse over: 10 hr, Route: IV, Dosing Weight 68.182 kg, Total Volume: 1,000, Start date: 04/17/13 20:39:00, Duration: 30 day, Stop date: 05/17/13 20:38:00 LR IV 1,000 2012-0 No Rasheed 1,000 mL, Memoria mL 7-06 Ye Rate: 100 l 01:39: Bogert ml/hr, Jackson 00 Infuse over: 10 hr, Route: IV, Dosing Weight 68.182 kg, Total Volume: 1,000, Start date: 04/17/13 20:39:00, Duration: 30 day, Stop date: 05/17/13 20:38:00 Versed 50 2012-0 No Jignesh 50 mg, 50 Memoria mg in NS 50 7- Peter mL, Rate: l ml 01:18: Luke Titrate as Herm ermelinda (titrate) 00 directed, IV 50 mg Dosing Weight 68.182, kg, Route: IV, Total Volume: 50 ml, Duration: 30 day, Stop date: 05/17/13 20:17:00, Replace Every: 24 hr FENTanyl No Jignesh 1,000 Memor ia 1000 mcg in 7-06 Peter microgram, l 20 mL 01:18: Holton 20 mL, Dutsy (titrate) 00 Rate: IV 1,000 Titrate as microgram directed, Dosing Weight 68.182, kg, Route: IV, Total Volume: 20 ml, Duration: 30 day, Stop date: 05/17/13 20:17:00, Replace Every: 24 hr Versed 50 2012-0 No Jignesh 50 mg, 50 Memoria mg in NS 50 7-06 Peter mL, Rate: l ml 01:18: [place]ton Titrate as Herm ermelinda (titrate) 00 directed, IV 50 mg Dosing Weight 68.182, kg, Route: IV, Total Volume: 50 ml, Duration: 30 day, Stop date: 05/17/13 20:17:00, Replace Every: 24 hr FENTanyl 2012-0 No Jignesh 1,000 Memor ia 1000 mcg in 7-06 Peter microgram, l 20 mL 01:18: Holton 20 mL, Dusty (titrate) 00 Rate: IV 1,000 Titrate as microgram directed, Dosing Weight 68.182, kg, Route: IV, Total Volume: 20 ml, Duration: 30 day, Stop date: 05/17/13 20:17:00, Replace Every: 24 hr FENTanyl - Danielle Pacheco Jacoby hailey one time 04-18 Peter microgram, l ICU bolus 01:16: Luke 2 mL, Herm ermelinda dose 00 Route: IVP, Drug form: INJ, ONCE, Dosing Weight 68.182, kg, Start date: 04/17/13 20:16:00, Stop date: 04/17/13 20:16:00 FENTanyl - Danielle Pacheco Jacoby hailey one time 04-18 Peter microgram, l ICU bolus 01:16: Holton 2 mL, Herm ermelinda dose 00 Route: IVP, Drug form: INJ, ONCE, Dosing Weight 68.182, kg, Start date: 04/17/13 20:16:00, Stop date: 04/17/13 20:16:00 Ancef No Brian N 1 gm, Memori a 04-17 Saqib Route: l 22:49: IVPB, Dusty 00 ONCE, Dosing Weight 68.182, kg, Priority: STAT, Start date: 04/17/13 17:49:00, Stop date: 04/17/13 17:49:00 Ancef No Brian N 1 gm, Memori a 04-17 Saqib Route: l 22:49: IVPB, Jackson 00 ONCE, Dosing Weight 68.182, kg, Priority: STAT, Start date: 04/17/13 17:49:00, Stop date: 04/17/13 17:49:00 tetanus/dip Yes Bobo 0.5 ml, Mem oria htheria/per 04-17 Gage Route: IM, l tussis, 22:05: Anny Drug Form: Dusty acel (Tdap) 00 INJ, kg, 5 units-2.5 ONCE, units-18.5 Start mcg/0.5 mL date: intramuscul 04/17/13 ar 17:05:00, suspensio Stop date: 04/17/13 17:05:00 tetanus/dip Yes Bobo 0.5 ml, Mem oria htheria/per 04-17 Gage Route: IM, l tussis, 22:05: Anny Drug Form: Dusty acel (Tdap) 00 INJ, kg, 5 units-2.5 ONCE, units-18.5 Start mcg/0.5 mL date: intramuscul 04/17/13 ar 17:05:00, suspensio Stop date: 04/17/13 17:05:00 ketamine 2012-0 No Bobo 50 mg, 0.5 Mem oria 7-05 Gage mL, Route: l 22:03: Anny IV, Drug Kathy nn 00 form: INJ, ONCE, kg, Start date: 04/17/13 17:03:00, Stop date: 04/17/13 17:03:00 ketamine 2012-0 No Bobo 50 mg, 0.5 Mem oria 7-05 Gage mL, Route: l 22:03: Anny IV, Drug Kathy nn 00 form: INJ, ONCE, kg, Start date: 04/17/13 17:03:00, Stop date: 04/17/13 17:03:00 fentanyl 2012-0 No Bobo 50 Memoria 7-05 Gage microgram, l 22:02: Anny 1 mL, Dusty 00 Route: IVP, Drug form: INJ, ONCE, kg, Priority: STAT, Start date: 04/17/13 17:02:00, Stop date: 04/17/13 17:02:00 fentanyl 2012-0 No Bobo 50 Memoria 7-05 Gage microgram, l 22:02: Anny 1 mL, Dusty 00 Route: IVP, Drug form: INJ, ONCE, kg, Priority: STAT, Start date: 04/17/13 17:02:00, Stop date: 04/17/13 17:02:00 Saline No Brian N 5 ml, Memor ia Flush 0.9% 7-05 Saqib Route: l 21:39: IVP, Drug Dusty 00 Form: INJ, kg, PRN, PRN Line Flush, Administer at least once every 12 hours, Start date: 04/17/13 16:39:00, Stop date: 06/16/13 16:38:00 Saline No Brian N 5 ml, Memor ia Flush 0.9% 7-05 Saqib Route: l 21:39: IVP, Drug Jackson 00 Form: INJ, kg, PRN, PRN Line Flush, Administer at least once every 12 hours, Start date: 04/17/13 16:39:00, Stop date: 06/16/13 16:38:00 Vital Signs Vital Name Observation Time Observation Value Comments Source Systolic (mm Hg) 2019-08-04 23:29:00 Jacoby rial Dusty Diastolic (mm Hg) 2019-08-04 23:29:00 Mem orial Jackson Systolic (mm Hg) 2019-08-04 23:23:00 Jacoby rial Dusty Diastolic (mm Hg) 2019-08-04 23:23:00 Mem orial Dusty Heart Rate 2019-08-04 23:23:00 [facility] Dusty Respitory Rate 2019-08-04 23:23:00 Memori al [place] Temperature Oral (F) 2019-08-04 23:23:00 97.5 F [facility] Height 2019-08-04 23:23:00 170.18 cm [facility] BMI Calculated 2019-08-04 23:23:00 Memori al Dusty Weight 2019-08-04 23:23:00 [facility] Respitory Rate 2019-03-17 04:22:00 [facility] [place] Heart Rate 2019-03-17 04:22:00 [facility] Temperature Oral (F) 2019-03-17 04:22:00 98.0 F [facility] Respitory Rate 2019-03-17 02:02:00 Memori al Dusty Temperature Oral (F) 2019-03-17 02:02:00 98.4 F [facility] Dusty Weight 2019-03-17 02:02:00 [facility] Systolic (mm Hg) 2019-03-17 02:02:00 Jacoby rial Jackson Diastolic (mm Hg) 2019-03-17 02:02:00 Mem orial [place] Heart Rate 2019-03-17 02:02:00 [facility] Dusty Diastolic (mm Hg) 2014-08-31 14:34:00 Mem orial [place] Systolic (mm Hg) 2014-08-31 14:34:00 Jacoby rial Jackson Respitory Rate 2014-08-31 14:34:00 Memori al Dusty Heart Rate 2014-08-31 14:34:00 [facility] Temperature Oral (F) 2014-08-31 14:34:00 97.3 F [facility] Dusty Diastolic (mm Hg) 2014-08-31 11:02:00 Mem orial Dusty Respitory Rate 2014-08-31 11:02:00 Memori al [place] Systolic (mm Hg) 2014-08-31 11:02:00 Jacoby rial Jackson Heart Rate 2014-08-31 11:02:00 [facility] Respitory Rate 2014-08-31 09:11:00 Memori al [place] Heart Rate 2014-08-31 09:11:00 [facility] Diastolic (mm Hg) 2014-08-31 09:11:00 Mem orial Dusty Systolic (mm Hg) 2014-08-31 09:11:00 Jacoby rial Jackson Temperature Oral (F) 2014-08-31 07:40:00 97.7 F [facility] Temperature Oral (F) 2014-08-31 04:45:00 97.6 F [facility] Weight 2014-08-30 21:23:00 [facility] Dusty Height 2014-08-30 21:23:00 177.8 cm [facility] BMI Calculated 2014-08-30 21:23:00 Mem[facility] al [place] Heart Rate 2014-06-04 16:41:00 [facility] Dusty Temperature Oral (F) 2014-06-04 16:41:00 98.5 F [facility]y Respitory Rate 2014-06-04 16:41:00 Memori al Dusty Diastolic (mm Hg) 2014-06-04 16:41:00 Mem orial Dusty Systolic (mm Hg) 2014-06-04 16:41:00 Jacoby rial Jackson Respitory Rate 2014-06-04 12:24:00 Memori al Dusty Systolic (mm Hg) 2014-06-04 12:24:00 Jacoby rial Dusty Diastolic (mm Hg) 2014-06-04 12:24:00 Mem orial Dusty Temperature Oral (F) 2014-06-04 12:24:00 98.5 F [facility]y Heart Rate 2014-06-04 12:24:00 [facility] Respitory Rate 2014-06-04 09:37:00 Memori al [place] Diastolic (mm Hg) 2014-06-04 09:37:00 Mem orial [place] Systolic (mm Hg) 2014-06-04 09:37:00 Jacoby rial Jackson Heart Rate 2014-06-04 09:37:00 [facility] Temperature Oral (F) 2014-06-04 09:37:00 98.5 F [facility] Weight 2014-06-01 19:48:00 [facility]y BMI Calculated 2014-06-01 19:48:00 [facility] [place] Height 2014-06-01 19:48:00 172.72 cm [facility] Dusty BMI Calculated 2014-06-01 11:50:00 [facility] al Dusty Height 2014-06-01 11:50:00 177.8 cm [facility] Dusty Weight 2014-06-01 11:50:00 [facility] Weight 2014-05-28 17:08:00 [facility] Dusty BMI Calculated 2014-05-28 17:08:00 [facility] al [place] Height 2014-05-28 17:08:00 175.26 cm [facility] Dusty Systolic (mm Hg) 2014-05-13 16:25:00 Jacoby rial Jackson Diastolic (mm Hg) 2014-05-13 16:25:00 Mem orial Jackson Respitory Rate 2014-05-13 16:25:00 Memori al Dusty Temperature Oral (F) 2014-05-13 16:25:00 98.4 F [facility] Systolic (mm Hg) 2014-05-13 15:01:00 Jacoby rial Dusty Diastolic (mm Hg) 2014-05-13 15:01:00 Mem orial Jackson Respitory Rate 2014-05-13 15:01:00 Memori al Dusty Diastolic (mm Hg) 2014-05-13 12:54:00 Mem orial Jackson Respitory Rate 2014-05-13 12:54:00 Memori al Dusty Systolic (mm Hg) 2014-05-13 12:54:00 Jacoby rial Dusty Temperature Oral (F) 2014-05-13 07:24:00 98.2 F [facility]y Weight 2014-05-13 07:24:00 [facility] Dusty Height 2014-05-13 07:24:00 175.26 cm [facility] Dusty BMI Calculated 2014-05-13 07:24:00 Memori al [place] Heart Rate 2014-05-13 07:24:00 [facility]y Heart Rate 2014-05-06 16:13:00 [facility] Temperature Oral (F) 2014-05-06 16:13:00 97.3 F [facility]y Diastolic (mm Hg) 2014-05-06 16:13:00 Mem orial [place] Systolic (mm Hg) 2014-05-06 16:13:00 Jacoby rial Dusty Heart Rate 2014-05-06 12:14:00 [facility] Dusty Temperature Oral (F) 2014-05-06 12:14:00 97.7 F [facility] Diastolic (mm Hg) 2014-05-06 12:14:00 Mem orial [place] Systolic (mm Hg) 2014-05-06 12:14:00 Jacoby rial Dusty Temperature Oral (F) 2014-05-06 09:23:00 96.4 F [facility] Heart Rate 2014-05-06 09:23:00 [facility] Respitory Rate 2014-05-06 09:23:00 Memori al [place] Systolic (mm Hg) 2014-05-06 09:23:00 Jacoby rial Jackson Diastolic (mm Hg) 2014-05-06 09:23:00 Mem orial Jackson Respitory Rate 2014-05-06 05:30:00 [facility] al [place] BMI Calculated 2014-05-06 00:27:00 Mem[facility] al Dusty Weight 2014-05-06 00:27:00 [facility] Dusty Height 2014-05-06 00:27:00 175.26 cm [facility] Dusty BMI Calculated 2014-05-05 23:40:00 Memori al [place] Height 2014-05-05 23:40:00 175.26 cm [facility] Weight 2014-05-05 23:40:00 [facility] Dusty Respitory Rate 2014-05-05 23:39:00 Memori al Dusty Weight 2014-05-05 06:51:00 [facility]y BMI Calculated 2014-05-05 06:51:00 Mem[facility] al [place] Height 2014-05-05 06:51:00 175.26 cm [facility] Dusty Systolic (mm Hg) 2014-04-21 15:20:00 Jacoby rial Dusty Diastolic (mm Hg) 2014-04-21 15:20:00 Mem orial Jackson Respitory Rate 2014-04-21 15:20:00 Memori al [place] Systolic (mm Hg) 2014-04-21 15:00:00 Jacoby rial Dusty Diastolic (mm Hg) 2014-04-21 15:00:00 Mem orial Dusty Respitory Rate 2014-04-21 15:00:00 Memori al [place] Diastolic (mm Hg) 2014-04-21 14:15:00 Mem orial Dusty Systolic (mm Hg) 2014-04-21 14:15:00 Jacoby rial Jackson Respitory Rate 2014-04-21 14:15:00 Memori al Dusty BMI Calculated 2014-04-21 11:58:00 [facility] [place] Weight 2014-04-21 11:58:00 [facility] Height 2014-04-21 11:58:00 175.26 cm [facility] Dusty BMI Calculated 2014-04-19 21:29:00 Memori al Dusty Weight 2014-04-19 21:29:00 [facility] Height 2014-04-19 21:29:00 177.8 cm [facility] Dusty Diastolic (mm Hg) 2014-04-19 21:29:00 Mem orial Dusty Heart Rate 2014-04-19 21:29:00 [facility] Dusty Respitory Rate 2014-04-19 21:29:00 Memori al Dusty Temperature Oral (F) 2014-04-19 21:29:00 98.6 F [facility]y Systolic (mm Hg) 2014-04-19 21:29:00 Jacoby rial Dusty Diastolic (mm Hg) 2014-02-12 16:00:00 Mem orial Dusty Systolic (mm Hg) 2014-02-12 16:00:00 Jacoby rial Jackson Respitory Rate 2014-02-12 16:00:00 Memori al [facility] BMI Calculated 2014-02-12 12:10:00 [facility] [place] Height 2014-02-12 12:10:00 175.26 cm [facility] Dusty Weight 2014-02-12 12:10:00 [facility] Diastolic (mm Hg) 2014-02-12 12:00:00 Mem orial Jackson Systolic (mm Hg) 2014-02-12 12:00:00 Jacoby rial Jackson Respitory Rate 2014-02-12 12:00:00 Memori al Dusty Respitory Rate 2014-02-08 12:26:00 [facility] [place] Temperature Oral (F) 2014-02-08 12:26:00 98 F [facility] Dusty Diastolic (mm Hg) 2014-02-08 12:26:00 Mem orial Dusty Systolic (mm Hg) 2014-02-08 12:26:00 Jacoby rial Jackson Heart Rate 2014-02-08 12:26:00 [facility] Dusty Diastolic (mm Hg) 2014-02-08 09:17:00 Mem orial Dusty Temperature Oral (F) 2014-02-08 09:17:00 97.8 F [facility] Heart Rate 2014-02-08 09:17:00 [facility] Dusty Respitory Rate 2014-02-08 09:17:00 Memori al [place] Systolic (mm Hg) 2014-02-08 09:17:00 Jacoby rial Dusty Diastolic (mm Hg) 2014-02-08 04:57:00 Mem orial Jackson Temperature Oral (F) 2014-02-08 04:57:00 98.4 F [facility] Respitory Rate 2014-02-08 04:57:00 Memori al Dusty Systolic (mm Hg) 2014-02-08 04:57:00 Jacoby rial Dusty Heart Rate 2014-02-08 04:57:00 [facility] Dusty Weight 2014-02-07 05:23:00 [facility] BMI Calculated 2014-02-07 05:23:00 Memori al Dusty Height 2014-02-07 05:23:00 175.26 cm [facility] BMI Calculated 2014-01-18 19:35:00 [facility] [place] Weight 2014-01-18 19:35:00 [facility] Dusty Height 2014-01-18 19:35:00 175.26 cm [facility]y Systolic (mm Hg) 2014-01-18 19:35:00 Jacoby rial Jackson Respitory Rate 2014-01-18 19:35:00 Memori al Dusty Temperature Oral (F) 2014-01-18 19:35:00 97.9 F [facility]y Diastolic (mm Hg) 2014-01-18 19:35:00 Mem orial [place] Heart Rate 2014-01-18 19:35:00 [facility] Heart Rate 2014-01-01 20:16:00 [facility] Temperature Oral (F) 2014-01-01 20:16:00 98.3 F [facility] Respitory Rate 2014-01-01 20:16:00 Memori al Dusty Systolic (mm Hg) 2014-01-01 20:16:00 Jacoby rial Dusty Diastolic (mm Hg) 2014-01-01 20:16:00 Mem orial Dusty Respitory Rate 2014-01-01 16:29:00 [facility] Heart Rate 2014-01-01 16:29:00 [facility] Systolic (mm Hg) 2014-01-01 16:29:00 Jacoby rial Dusty Diastolic (mm Hg) 2014-01-01 16:29:00 Mem orial [place] Temperature Oral (F) 2014-01-01 16:29:00 98.1 F [facility] BMI Calculated 2014-01-01 15:17:00 [facility] Weight 2014-01-01 15:17:00 [facility]y Height 2014-01-01 15:17:00 175.26 cm [facility] BMI Calculated 2014-01-01 12:56:00 Memori al Dusty Height 2014-01-01 12:56:00 175.26 cm [facility] Weight 2014-01-01 12:56:00 [facility] Respitory Rate 2014-01-01 12:50:00 [facility] [place] Systolic (mm Hg) 2014-01-01 12:50:00 Jacoby rial [place] Diastolic (mm Hg) 2014-01-01 12:50:00 Mem orial [place] Temperature Oral (F) 2014-01-01 12:50:00 98.2 F [facility] Heart Rate 2014-01-01 12:50:00 [facility] Respitory Rate 2013-08-24 21:30:00 Memori al Dusty Systolic (mm Hg) 2013-08-24 21:30:00 Jacoby rial Dusty Temperature Oral (F) 2013-08-24 21:30:00 97.4 F [facility] Heart Rate 2013-08-24 21:30:00 [facility] Diastolic (mm Hg) 2013-08-24 21:30:00 Mem orial [facility] Heart Rate 2013-08-24 18:04:00 [facility] Temperature Oral (F) 2013-08-24 18:04:00 97.8 F [facility] Systolic (mm Hg) 2013-08-24 18:04:00 Jacoby rial Jackson Diastolic (mm Hg) 2013-08-24 18:04:00 Mem orial Dusty Respitory Rate 2013-08-24 18:04:00 Memori al Dusty Systolic (mm Hg) 2013-08-24 15:00:00 Jacoby rial [place] Respitory Rate 2013-08-24 15:00:00 [facility] Heart Rate 2013-08-24 15:00:00 [facility]y Diastolic (mm Hg) 2013-08-24 15:00:00 Mem orial [place] Temperature Oral (F) 2013-08-24 15:00:00 97.2 F [facility] Weight 2013-08-22 17:31:00 [facility] Height 2013-08-22 17:31:00 177.8 cm [facility] Height 2013-08-18 22:55:00 177.8 cm [facility] Weight 2013-08-18 22:55:00 [facility] Height 2013-08-17 18:13:00 177.8 cm [facility] Weight 2013-08-17 18:13:00 [facility] Systolic (mm Hg) 2013-06-01 17:15:00 Jacoby rial Dusty Heart Rate 2013-06-01 17:15:00 [facility] Respitory Rate 2013-06-01 17:15:00 [facility] Diastolic (mm Hg) 2013-06-01 17:15:00 Mem orial Dusty Temperature Oral (F) 2013-06-01 17:15:00 99.5 F [facility] Diastolic (mm Hg) 2013-06-01 12:15:00 Mem orial [place] Heart Rate 2013-06-01 12:15:00 [facility] Systolic (mm Hg) 2013-06-01 12:15:00 Jacoby rial Dusty Temperature Oral (F) 2013-06-01 12:15:00 99.6 F [facility] Respitory Rate 2013-06-01 12:15:00 [facility] [place] Diastolic (mm Hg) 2013-06-01 09:34:00 Mem orial [place] Systolic (mm Hg) 2013-06-01 09:34:00 Jacoby rial [place] Respitory Rate 2013-06-01 09:34:00 [facility]y Heart Rate 2013-06-01 09:34:00 [facility] Temperature Oral (F) 2013-06-01 09:34:00 99.2 F [facility] Height 2013-05-31 00:21:00 177.8 cm [facility] Weight 2013-05-31 00:21:00 [facility] Respitory Rate 2013-05-20 19:00:00 Mem[facility] al [facility]y Heart Rate 2013-05-20 19:00:00 [facility] Diastolic (mm Hg) 2013-05-20 19:00:00 Mem o[facility] [place] Temperature Oral (F) 2013-05-20 19:00:00 98.0 F [facility] Systolic (mm Hg) 2013-05-20 19:00:00 [facility] Temperature Oral (F) 2013-05-20 17:00:00 98.7 F [facility] Diastolic (mm Hg) 2013-05-20 17:00:00 [facility] Systolic (mm Hg) 2013-05-20 17:00:00 [facility] Respitory Rate 2013-05-20 17:00:00 [facility] Heart Rate 2013-05-20 17:00:00 [facility] Respitory Rate 2013-05-20 13:00:00 [facility] Rate 2013-05-20 13:00:00 [facility] Temperature Oral (F) 2013-05-20 13:00:00 98.3 F [facility] Diastolic (mm Hg) 2013-05-20 13:00:00 [facility] Systolic (mm Hg) 2013-05-20 13:00:00 [facility] Height 2013-04-23 20:15:00 177.8 cm [facility] Height 2013-04-21 22:32:00 177.8 cm [facility] Weight 2013-04-18 13:41:00 [facility] Height 2013-04-18 13:41:00 254 cm [facility] Weight 2013-04-17 21:40:00 [facility] Procedures Procedure Date / Time Performed Performing Clinician Formerly [facility] e Examination of spine [facility] rmann Hepatectomy [facility] Kidney excision [facility] Lobectomy of lung [facility] nn ORIF - Open reduction and [facility] internal fixation of fracture Plan of Care Planned Activity Planned Date Details Comments Source Future Scheduled 2020-06-14 INFLUENZA VACCINE (#1) [facility] - Test 00:00:00 [code = INFLUENZA Medical Ce nter VACCINE (#1)] Future Scheduled [address] [facility] - Test 00:00:00 (procedure) [code = Medical Center [id number]] Future Scheduled [address] [facility] - Test 00:00:00 0-64 YRS (1 of 1 - Medical C enter [id number]) [code = PNEUMOCOCCAL VACCINE 0-64 YRS (1 of 1 - PPSV23)] Encounters Start End Encounter Admission Attending Care Care Encounter Source Date/Time Date/Time Type Type Clinicians Facility Department ID 2020-12-02 2020-12-02 Office Dg [facility] [id number] 12:59:51 13:14:51 [place] [id number] [place] [id number] Professio [phone] nal 044 Office [facility] One 2020-12-02 2020-12-02 Telephone Dg [facility] [id number] 00:00:00 00:00:00 [place] [id number] [place] [id number] Professio [phone] nal 044 Office [facility] One 2019-08-04 2019-08-04 Outpatient Marry, MHSE MHSE [id number] 18:18:30 20:05:00 [facility] 14 2019-08-04 2019-08-04 Outpatient Marry, MHSE MHSE [id number] 18:18:30 20:05:00 Rodney 14 2019-08-04 2019-08-04 Emergency E MHSE MHSE [id number] MH 18:18:00 18:18:00 [facility] 2019-03-16 2019-03-17 Outpatient Kimberleyer, MHPL MHPL [id number] 20:20:49 00:06:00 Doug Chin 13 2019-03-16 2019-03-17 Outpatient Edmund, MHPL MHPL [id number] 20:20:49 00:06:00 Doug Chin 13 2019-03-16 2019-03-16 Emergency E MHBL MHBL [id number] MHBL 20:20:00 20:20:00 2014-08-30 2014-08-31 Outpatient Jose [facility] [id number] 15:12:00 08:57:00 Muriel Hallman 12 2014-08-30 2014-08-31 Outpatient Jose HS HS [id number] 15:12:00 08:57:00 Muriel Hallman 12 2014-06-01 2014-06-04 Outpatient López, MHHS HS [id number] 05:42:00 15:05:00 Donny 11 [facility] 2014-06-01 2014-06-04 Outpatient López, MHHS HS [id number] 05:42:00 15:05:00 Donny 11 [facility] 2014-05-13 2014-05-13 Outpatient Rmaón, MHHS MHHS [id number] 02:24:00 11:46:00 Svetlana A 12 2014-05-13 2014-05-13 Outpatient Chambers, MHHS MHHS [id number] 02:24:00 11:46:00 Svetlana A 12 2014-05-05 2014-05-06 Outpatient Kashmir, MHHS HS [id number] 01:49:00 14:40:00 Leonard Vaca 2014-05-05 2014-05-06 Outpatient Marlow, HS HS [id number] 01:49:00 14:40:00 Leonard Vaca 2014-04-21 2014-04-21 Outpatient Bogert, HS HS [id number] 06:33:00 10:20:00 Rasheed Belcher 2014-04-21 2014-04-21 Outpatient Bogert, MHHS MHHS [id number] 06:33:00 10:20:00 Rasheed Belcher 2014-04-19 2014-04-19 Outpatient Maddow, HS HS [id number] 16:21:00 18:07:00 Michael Hung Jose F 2014-04-19 2014-04-19 Outpatient Maddow, HS HS [id number] 16:21:00 18:07:00 Michael Hung Jose F 2014-04-06 2014-04-06 Outpatient Shree Alvarado HS [facility]HS [id number] 08:22:00 23:59:00 Dez 2014-04-06 2014-04-06 Outpatient Shree Alvarado HS MHHS [id number] 08:22:00 23:59:00 Dez 2014-02-12 2014-02-12 Outpatient Physician, HS MHHS [id number] 07:00:00 11:00:00 Non 05 Associated 2014-02-12 2014-02-12 Outpatient Physician, [facility] [id number] 07:00:00 11:00:00 Non 05 Associated 2014-02-07 2014-02-08 [facility] [id number] 00:18:00 12:41:00 Donny 16 [facility] 2014-02-07 2014-02-08 Outpatient Maribel, HS HS [id number] 00:18:00 12:41:00 Donny 16 mary 2014-01-18 2014-01-18 Outpatient Owenecki, HS HS [id number] 14:32:00 18:26:00 Kayode Pat Romero 2014-01-18 2014-01-18 Outpatient Radecki, HS HS [id number] 14:32:00 18:26:00 Kayode Pat Nick 2014-01-01 2014-01-01 Out[facility] Kashmir[facility] [id number] 07:48:00 19:07:00 Leonard Julio 2014-01-01 2014-01-01 Outpatient Kashmir, [facility] [id number] 07:48:00 19:07:00 Leonard Kirkpatrick 80 2013-11-03 2013-11-03 Outpatient [facility] [place] [id number] Memoria 09:53:00 15:00:[address] 2013-11-03 2013-11-03 Outpatient [facility] [id number] Memoria 09:53:00 15:00:[address] 2013-09-18 2013-09-18 Outpatient 3 3 [id number] 11:47:54 11:47:53 2013-09-18 2013-09-18 Outpatient 3 3 [id number] 11:47:54 11:47:53 2013-08-16 2013-08-24 Outpatient [facility] [place] [id number] Memoria 16:55:00 17:17:[address] 2013-08-16 2013-08-24 Outpatient [facility] [id number] Memoria 16:55:00 17:17:[address] 2013-07-31 2013-07-31 Outpatient 3 3 [id number] 12:04:25 12:04:25 2013-07-31 2013-07-31 Outpatient 3 3 [id number] 12:04:25 12:04:25 2013-07-17 2013-07-17 Outpatient 3 3 [id number] 11:17:37 11:17:37 2013-07-17 2013-07-17 Outpatient 3 3 [id number] 11:17:37 11:17:37 2013-06-14 2013-06-14 Outpatient 3 3 [id number] 15:22:41 15:22:19 2013-06-14 2013-06-14 Outpatient 3 3 [id number] 15:22:41 15:22:19 2013-06-02 2013-06-02 Outpatient 3 3 [id number] 16:04:22 16:04:01 2013-06-02 2013-06-02 Outpatient 3 3 [id number] 16:04:22 16:04:01 Results Test Description Test Time Test Comments Results Result Comments Source BASIC METABOLIC PANEL 2019-10-26 12:17:00 Test Item Value Reference Range Interpretation Comme nts SODIUM (BEAKER) (test code 138 meq/L 135-148 = 381) POTASSIUM (BEAKER) (test 4.1 meq/L 3.6-5.5 Spe cimen moderately code = 379) hemolyzed CHLORIDE (BEAKER) (test 115 meq/L 98-106 H code = 382) CO2 (BEAKER) (test code = 15 meq/L 20-29 L 355) BLOOD UREA NITROGEN 15 mg/dL 10-26 (BEAKER) (test code = 354) CREATININE (BEAKER) (test 1.23 mg/dL 0.50-1.20 H Sp ecimen moderately code = 358) hemolyzed GLUCOSE RANDOM (BEAKER) 89 mg/dL 70-110 (test code = 652) CALCIUM (BEAKER) (test code 8.4 mg/dL 8.5-10.5 L = 697) EGFR (BEAKER) (test code = 71 mL/min/1.73 sq m ESTIMATED GFR IS NOT 1092) ACCURATE CRE ATININE CLEARANCE IN NV EDICTING GLOMERULAR FILT RATION RATE. ESTIMATED GFR IS NOT APPLICABLE FOR DIALYSIS PATIENTS. Tobacco Packer ID - [id number] 07:12:00 Test Item Value Reference Range Interpretation Comments CULTURE (BEAKER) (test <10,000 col/mL skin code = 1095) ever CBC W/PLT COUNT & AUTO [id number] 06:49:00 Test Item Value Reference Range Interpretation [...] (BEAKER) (test code = 2801) COMPREHENSIVE METABOLIC [id number] 07:01:00 Test Item Value Reference Range Interpretation [...] hemolyzed EGFR (BEAKER) (test 67 mL/min/1.73 ESTIMA JERMAINE GFR IS code = 1092) sq m NOT ACCURATE CREATININE CLEARANCE IN PREDICTING GLOMERULAR FILTRATION RATE . ESTIMATED GFR I S NOT APPLICABLE FOR DIALYSIS PATIEN TS. Tobacco Packer ID - HEIDE MCBC W/PLT COUNT & AUTO [id number] 06:03:00 Test Item Value Reference Range Interpretation [...] (BEAKER) (test code = 2801) URINALYSIS W/ [id number] 23:08:00 Test Item Value Reference Range Interpretation [...] 1574) SOURCE(BEAKER) (test code = Urine, Voided 6295) Tobacco Packer ID - [auto]Tobacco Packer ID - techRAPID DRUG SCREEN, [id number] 20:17:00 Test Item Value Reference Range Interpretation [...] situations. Chain of custody not maintained. Some ovte-kms-nlfotpv medications, as well as adulterants, may cause inaccurate results. Clinical correlation should be applied. A more comprehensivedrug screen or confirmation of a detected drug may be performed upon request.Tobacco Packer ID - KENNOperator ID - [auto][id number] 18:24:00 Test Item Value Reference Range Interpretation Comments MAGNESIUM (BEAKER) (test code = 1.8 mg/dL 1.6-2.6 627) Tobacco Packer ID - KENNCOMPREHENSIVE METABOLIC [id number] 18:24:00 Test Item Value Reference Range Interpretation [...] 347) EGFR (BEAKER) (test 64 mL/min/1.73 ESTIMA JERMAINE GFR IS code = 1092) sq m NOT ACCURATE CREATININE CLEARANCE IN PREDICTING GLOMERULAR FILTRATION RATE . ESTIMATED GFR I S NOT APPLICABLE FOR DIALYSIS PATIEN TS. Tobacco Packer ID - KENNURINALYSIS W/ REFLEX URINE [id number] 18:16:00 Test Item Value Reference Range Interpretation [...] 1574) Rare SOURCE(BEAKER) (test code = 2795) Tobacco Packer ID - [auto]Tobacco Packer ID - techPROTHROMBIN TIME/[id number] 18:12:00 Test Item Value Reference Range Interpretation [...] mechanical heart valves.CBC W/PLT COUNT & AUTO [id number] 18:05:00 Test Item Value Reference Range Interpretation [...] PERCENT (BEAKER) (test code = 2801) CARDIAC [id number] 23:35:09416Atfqngma HermannCARDIAC OEXLPDI2248-25-21 23:35:00<0.02[facility] HermannCHEM PVFOZ4955-85-18 23:35:0086[facility] CHEM JRRAY2268-96-28 23:35:0012[facility] HermannCHEM ZGKZJ0150-71-22 23:35:001.14 [facility]annCHEM FGRJJ7018-31-63 23:35:45458Etnyvvab HermannCHEM PANEL 2019-08-04 23:35:003.9[facility] HermannCHEM KEISM4209-47-33 23:35:69230Mdatgree HermannCHEM XADVX1815-04-16 23:35:0020[facility] HermannCHEM IWEJC1474-90-00 23:35:008.9[facility] HermannCHEM HCNOQ0784-16-25 23:35:007.8[facility] HermannCHEM ICWCW1482-22-57 23:35:003.5[facility] HermannCHEM JEPEP4318-85-84 23:35:0034 [facility] HermannCHEM MAFSM9366-65-48 23:35:0030[facility] HermannCHEM PANEL 2019-08-04 23:35:51629Syhulobr HermannCHEM ECOZA8293-95-76 23:35:000.3[facility] HermannCHEM BHDKV3823-84-66 23:35:0088[facility] HermannCHEM CXKOG2755-60-16 23:35:0012.9[facility] HermannCHEM RDUQJ8786-11-14 23:35:00 Test Item Value Reference Range Interpretation Comments B/C Ratio (test code = B/C Ratio) 11 1 6-25 [facility]annCHEM PFOIV3814-24-61 23:35:004.3[facility] HermannCHEM PANEL 2019-08-04 23:35:00 Test Item Value Reference Range Interpretation Comments A/G Ratio (test code = A/G Ratio) 0.8 1 0.7-1.6 [facility] HermannCHEM DWVEA1609-47-86 23:35:44692Uvdqishs HermannHEMATOLOGY 2019-08-04 23:35:0010.7[facility] HarbolhNRBZNOREGS9397-60-88 23:35:003.87[facility] RqcxodoOXVFIQGCQX3092-98-21 23:35:0012.7[facility] OxjdaofGWXCFSDDDR9755-00-41 23:35:0037.4[facility] LecnaeyZXLUOGZKFH7309-35-12 23:35:0096.5[facility] UVMNLOASUE2384-91-06 23:35:00 Test Item Value Reference Range Interpretation Comments MCH (test code = MCH) 32.9 pg 27.0-31.0 [facility] MbzqtyuKJKOXAUSCY4723-71-79 23:35:0034.1[facility] HermannHEMATOLOGY 2019-08-04 23:35:0013.5[facility] FtweythMNGQYISOJE1201-29-27 23:35:21332Clgvxlao QfacuwxAZPIQWZJDS5636-21-20 23:35:007.9[facility] MzmqslqADPEOWINLJ6181-30-49 23:35:0065.4[facility] VyvesfrXCLMJWOXDR8728-76-84 23:35:0023.5[facility] ZHJZSJGETA8374-55-57 23:35:008.0[facility] TwhijvbEXWBLXTGUH6806-21-63 23:35:001.8 [facility] ZjfceskGNVARZXUYG8251-99-48 23:35:001.3[facility] HermannHEMATOLOGY 2019-08-04 23:35:007.0[facility] VychjbvMNCUCYADYT4614-94-83 23:35:002.5[facility] NwywewdUDDZTBYMYP2931-03-81 23:35:000.9[facility] HicwtfxLFJQNMIJLQ2148-19-20 23:35:000.2[facility] VhitmqpRHJNRVBJTZ4552-50-70 23:35:000.1[facility] CARDIAC VZKWYLZ8947-89-76 23:35:04161Yodtnaja HermannCARDIAC IOZQFUO5456-59-39 23:35:00<0.02[facility] HermannCHEM ARQEH9144-20-38 23:35:0086[facility] CHEM KETIW6673-38-57 23:35:0012[facility] HermannCHEM NSBME5398-94-84 23:35:001.14 [facility] HermannCHEM RSVAL6058-94-89 23:35:93394Jwvqbhgq HermannCHEM PANEL 2019-08-04 23:35:003.9[facility] HermannCHEM WYGGB0385-61-89 23:35:77392Uiyqjjuo HermannCHEM FERDQ3943-82-01 23:35:0020[facility] HermannCHEM CDLVQ3765-74-81 23:35:008.9[facility] HermannCHEM BZXIL8401-10-18 23:35:007.8[facility] HermannCHEM XQLTA3493-17-34 23:35:003.5[facility] HermannCHEM TPPAB3927-36-62 23:35:0034 [facility] HermannCHEM HUWAM0884-33-95 23:35:0030[facility] HermannCHEM PANEL 2019-08-04 23:35:64646Rdujmpgs HermannCHEM TWYKF7170-90-07 23:35:000.3[facility] HermannCHEM KODOZ4320-00-54 23:35:0088[facility] HermannCHEM JGZXA9616-82-83 23:35:0012.9[facility] HermannCHEM BSOPY9152-43-56 23:35:00 Test Item Value Reference Range Interpretation Comments B/C Ratio (test code = B/C Ratio) 11 1 6-25 [facility] HermannCHEM KXUSD1155-43-70 23:35:004.3[facility] HermannCHEM PANEL 2019-08-04 23:35:00 Test Item Value Reference Range Interpretation Comments A/G Ratio (test code = A/G Ratio) 0.8 1 0.7-1.6 [facility] HermannCHEM QXNQS0635-01-44 23:35:43318Ipwwbmtq HermannHEMATOLOGY 2019-08-04 23:35:0010.7[facility] YyglwwcPYLMYZQGBI1089-08-74 23:35:003.87[facility] LlkvlkyVLPYUCVIUN0685-13-17 23:35:0012.7[facility] HhibxqcHPPLQKBLHZ8765-94-81 23:35:0037.4[facility] EcgglebPASNMOUDDO1508-85-47 23:35:0096.5[facility] TFKVQATTFW5235-31-03 23:35:00 Test Item Value Reference Range Interpretation Comments MCH (test code = MCH) 32.9 pg 27.0-31.0 [facility] MqvmqoxZNXXDEVYET2698-72-24 23:35:0034.1[facility] HermannHEMATOLOGY 2019-08-04 23:35:0013.5[facility] ZhurwuzVHYBQOUSFW0192-35-68 23:35:48193Fdsfbivj JtbedemUHHYMCPVTP5442-17-51 23:35:007.9[facility] OenzhzsIMWWPCIXRP1510-12-51 23:35:0065.4[facility] WzhncvlFNJURIQVAF5294-00-34 23:35:0023.5[facility] VQSGUYJTKS4848-38-65 23:35:008.0[facility] SjvfeujKROLDQYSPW3602-49-66 23:35:001.8 [facility] HwflwbvSQRBPDTVSS1434-37-94 23:35:001.3[facility] HermannHEMATOLOGY 2019-08-04 23:35:007.0[facility] TdzkjsvVCVLHDDUXL8985-38-93 23:35:002.5[facility] WfqxycpUTWSTVIHOY3425-13-95 23:35:000.9[facility] FylksquCZZFUFWCAE8340-72-83 23:35:000.2[facility] CfxmbbhENUFSZVVOE9473-13-54 23:35:000.1[facility] HermannBASIC METABOLIC UCDUB0145-55-21 07:05:00 Test Item Value Reference Range Interpretation [...] APPLICABLE FOR DIALYSIS PATIEN TS. BASIC METABOLIC [id number] 06:45:00 Test Item Value Reference Range Interpretation [...] APPLICABLE FOR DIALYSIS PATIEN TS. VANCOMYCIN LEVEL, [id number] 21:11:00 Test Item Value Reference Range Interpretation Comments VANCOMYCIN TROUGH (BEAKER) (test 8.3 ug/mL 10.0-20.0 L code = 522) CBC W/PLT COUNT & AUTO VBGPGOLNHODL1502-78-15 08:25:00 Test Item Value Reference Range Interpretation [...] Received comment: User comments: Slide comments:BASIC METABOLIC [id number] 06:26:00 Test Item Value Reference Range Interpretation [...] PATIEN TS. CBC W/PLT COUNT & AUTO SYSERXCADNAZ6750-09-89 14:49:00 Test Item Value Reference Range Interpretation [...] Received comment: User comments: Slide comments:BASIC METABOLIC [id number] 12:30:00 Test Item Value Reference Range Interpretation [...] S NOT APPLICABLE FOR DIALYSIS PATIEN TS. RAPID DRUG SCREEN, [id number] 21:01:00 Test Item Value Reference Range Interpretation [...] situations. Chain of custody not maintained. Some ttur-vhe-dnqbufw medications, as well as adulterants, may cause inaccurate results. Clinical correlation should be applied. A more comprehensivedrug screen or confirmation of a detected drug may be performed upon request.URINALYSIS W/ REFLEX URINE [id number] 20:48:00 Test Item Value Reference Range Interpretation [...] = 1585) Occasional SOURCE(BEAKER) (test code = 2325) MR, BRAIN, [id number] 15:37:00FINAL REPORT MRI Brain with and without [...] MDReport Verified Date/Time: 03/22/2019 15:37:41 Reading Location: [address] Neuro Reading Room Electronicallysigned by: KENNY CHRISTIANSEN M.D. on 03/22/2019 03:37 PMHIV-1 ANTIGEN WITH HIV-1/2 [id number] 14:15:00 Test Item Value Reference Range Interpretation Comments HIV-1 ANTIGEN WITH HIV 1\\T\\2 Nonreactive Nonreactive ANTIBODY (2) (BEAKER) (test code = 2586) BASIC METABOLIC [id number] 13:55:00 Test Item Value Reference Range Interpretation [...] 697) EGFR (BEAKER) (test 86 mL/min/1.73 ESTIMA JERMAINE GFR IS code = 1092) sq m NOT ACCURATE CREATININE CLEARANCE IN PREDICTING GLOMERULAR FILTRATION RATE . ESTIMATED GFR I S NOT APPLICABLE FOR DIALYSIS PATIEN TS. CBC W/PLT COUNT & AUTO [id number] 13:35:00 Test Item Value Reference Range Interpretation [...] (BEAKER) (test code = 2801) HEPATIC FUNCTION [id number] 18:35:00 Test Item Value Reference Range Interpretation [...] = 34 U/L 6-55 347) BASIC METABOLIC [id number] 18:34:00 Test Item Value Reference Range Interpretation [...] 697) EGFR (BEAKER) (test 80 mL/min/1.73 ESTIMA JERMAINE GFR IS code = 1092) sq m NOT ACCURATE CREATININE CLEARANCE IN PREDICTING GLOMERULAR FILTRATION RATE . ESTIMATED GFR I S NOT APPLICABLE FOR DIALYSIS PATIEN TS. CBC W/PLT COUNT & AUTO TIJXDYQFZJEJ5711-75-71 18:28:00 Test Item Value Reference Range Interpretation [...] = 2801) RAD, CHEST, 1 VIEW, NON [id number] 16:57:00Reason for exam:->r/o pneumoniaShould this be performed at the bedside?->YesFINAL REPORT Portable chest. MEDICAL HISTORY: Rule out pneumonia. COMPARISON S TUDY: None available. FINDINGS: The cardiac size is unremarkable. There is blunting of the right causing again with adjacent atelectasis or consolidation. No pneumothorax is seen. The regional skeletonis unremarkable. IMPRESSION: Right costophrenic angle blunting. Signed: Mamadou Becerril Verified Date/Time: 03/21/2019 16:57:47 Reading Location: [address] Ortho Consult Reading Room CARDIAC MZHOZSM0556-83-67 01:36:00<0.02[facility] HermannELECTROLYTES 2019-03-17 01:36:0015.0[facility] QuntfzcOTJKQDRRTWNH3459-36-54 01:36:0022[facility] HnlbsvqUTQDZTJUFOJH7960-69-84 01:36:57489Sdjwlbdc PxcwshkJFABWKDPGLIE6232-65-68 01:36:001.26[facility] StqmtceENDMMHWJCPCB9403-05-43 01:36:14184Obnbunzx [place] XUOWZMKJSWVK8406-30-89 01:36:004.0[facility] AbnmtmxMNDAYRZKLPWW4776-91-47 01:36:29989Lkwiwiue WqcfauxIXGLTFKYZKGG9200-84-97 01:36:0014[facility] NQSGECFRRUUS7114-90-60 01:36:009.7[facility] BmdbakeVDIWAQFPVENR7949-77-36 01:36:0078[facility] VxjqftcFKHLTXXFHF1196-86-91 01:36:0077.2[facility] BLSDQNTVHQ7047-70-00 01:36:000.2[facility] ZsiwkokIYHSFTHKUN5824-61-17 01:36:00 15.0[facility] CexdrywEKLTMOAGHC8089-33-53 01:36:007.3[facility] HermannHEMATOLOGY 2019-03-17 01:36:000.8[facility] FfdhcvfQYEYOSHJAQ9197-74-33 01:36:001.6[facility] RxdvyriYXFFXFZOFK1705-07-65 01:36:000.3[facility] VetilhePQPIBDKELW5678-04-68 01:36:008.0[facility] JpbrrrjYQZMXQCSPY3898-77-06 01:36:0010.4[facility] KEVOPMIISU7373-48-52 01:36:46014Pohywsoo XdmtzshUZOQGYSKUA4549-01-41 01:36:00 12.5[facility] TjskofqPQQLNJYPKV0628-31-44 01:36:008.3[facility] HermannHEMATOLOGY 2019-03-17 01:36:004.80[facility] BqjluyrIYIJYCEMTS8047-96-44 01:36:0016.0[facility] KuvznnnGCUSJAVDMS3444-33-62 01:36:0045.3[facility] XdcoqxoWOIGYBPVZR7811-62-61 01:36:0094.4[facility] LzcubjcTKRHAWMCBU1446-33-89 01:36:00 Test Item Value Reference Range Interpretation Comments MCH (test code = MCH) 33.3 pg 27.0-31.0 [facility] TvczpseUKCZIKNZBA8761-78-51 01:36:0035.3[facility] HermannCARDIAC ENZYMES 2019-03-17 01:36:00<0.02[facility] EehnfdcEMFLIPQGIKWP3432-31-33 01:36:0015.0 [facility] DcnonahHUVXAHPYVGYF7295-32-61 01:36:0022[facility] HermannELECTROLYTES 2019-03-17 01:36:93630Wfefuqzl OdbhxrxPITLAVAFNQDW3313-25-31 01:36:001.26 [facility] HpfezhrODVVYUNDWWPW7223-07-81 01:36:90776Omdbwqwe HermannELECTROLYTES 2019-03-17 01:36:004.0[facility] HxrwabaUIRVAMADEDAX4842-60-84 01:36:87197Qpmmqaex AroddagAYBADGSXLXXP2392-09-91 01:36:0014[facility] ZerowqaCPSZMGFFQGEX4481-22-51 01:36:009.7[facility] HfxlbzhVDUOBRHMMPTJ8848-86-55 01:36:0078[facility] EOUKRNBJAR5772-61-53 01:36:0077.2[facility] SwfnmyfZWPZDPUYAR4977-49-70 01:36:00 0.2[facility] HtvvkviFOZSMUQMZZ1650-76-71 01:36:0015.0[facility] HermannHEMATOLOGY 2019-03-17 01:36:007.3[facility] OyvhflpZELGAGKBJJ8099-50-90 01:36:000.8[facility] DmmmqhePDSDUIIHOF6216-81-84 01:36:001.6[facility] VtbcedrUVSEMCQJYE5378-89-95 01:36:000.3[facility] XdhztxqFNOUSMCVTT0823-58-13 01:36:008.0[facility] SZPZILZBUK6173-94-00 01:36:0010.4[facility] WaqjtbyBBQAIWADNZ1925-35-31 01:36:00 311[facility] CtfxarfPSMJRKSZRG6982-03-36 01:36:0012.5[facility] HermannHEMATOLOGY 2019-03-17 01:36:008.3[facility] FdjmrmvRRDVYSPGVB4046-46-87 01:36:004.80[facility] PzccdxpLHYXADQSRG3816-78-12 01:36:0016.0[facility] GlngzaxNELFHCQOZP6726-26-58 01:36:0045.3[facility] RcynxfwOFMVNGAAJR8857-09-85 01:36:0094.4[facility] ORBWJQXZND1502-18-64 01:36:00 Test Item Value Reference Range Interpretation Comments MCH (test code = MCH) 33.3 pg 27.0-31.0 [facility] UbukuqhUEWNDXLMPW8333-90-07 01:36:0035.3[facility] HermannCHEM PANEL 2014-08-31 11:10:000.8[facility] HermannCHEM FJBCA5453-53-43 11:10:000.8[facility] HermannCHEM BMSYD1195-21-35 07:32:043.7[facility] HermannCHEM NJOEA1832-16-50 07:32:041.1[facility] HermannCHEM XSFCF8243-05-15 07:32:0413[facility] HermannCHEM WIVNP6075-89-79 07:32:0412.6[facility] HermannCHEM SCHVR9627-00-71 07:32:0421 [facility] HermannCHEM MTZQH4105-45-71 07:32:0477[facility] HermannCHEM PANEL 2014-08-31 07:32:0422[facility] HermannCHEM DNCFT8471-31-44 07:32:040.2[facility] HermannCHEM MBJGB6779-23-80 07:32:044.0[facility] HermannCHEM CYCLH4942-28-92 07:32:047.7[facility] HermannCHEM LIANU6356-09-49 07:32:048.9[facility] HermannCHEM DMHTQ9154-71-79 07:32:76254Yhejyaau HermannCHEM VDADM4035-05-78 07:32:0489 [facility] HermannCHEM FNWGZ9803-83-72 07:32:0417[facility] HermannCHEM PANEL 2014-08-31 07:32:041.3[facility] HermannCHEM PVMKE5377-25-45 07:32:043.6[facility] HermannCHEM SNXEI5026-20-39 07:32:64338Ujueprwp HermannCHEM PYIRW3450-38-54 07:32:0427[facility]annCHEM TULRI4478-96-90 07:32:0477[facility] Dsuty YVVELSLKEG5208-02-24 07:32:040.0[facility] WyuakgaYNZSWHXTTE0936-68-42 07:32:04 10.0[facility] GbgdtjlQIGIWHPBPY1527-28-63 07:32:044.0[facility] HermannHEMATOLOGY 2014-08-31 07:32:043.9[facility] ZsrsvnmTYOHXAVJDC3185-48-59 07:32:042.4[facility] UsxyuahKCIKDCKFIE0912-39-16 07:32:040.7[facility] JgcnafhNNJXZZTRVJ2647-65-20 07:32:04 Test Item Value Reference Range Interpretation Comments Tot Cell Ct (test code = Tot Cell Ct) 100 1 [facility] GwunidpOEHTIXUHFW2976-82-89 07:32:041+ *ABN*(08/31/14 1:32 AM)[facility] AaitxspVYLTBBUZFD8846-96-67 07:32:04Normal (08/31/14 1:32 AM)[facility] XLYHQFQMGQ7668-28-58 07:32:040.0[facility] TiktoowNKQJWOAAEX6860-37-06 07:32:04 33.0[facility] DkbykroRGKZFVGJJC2021-40-14 07:32:040.3[facility] HermannHEMATOLOGY 2014-08-31 07:32:0453.0[facility] WesdzvvSBNBNGZZJL6777-54-35 07:32:044.46[facility] OfsaxeyDTZMDMMNLH0870-25-41 07:32:047.4[facility] RtaawvsCBQPFZLOOF7170-46-90 07:32:0412.2[facility] SjmnikaUQJGPLMWFG4220-96-76 07:32:048.5[facility] YMANWFEBJV2568-02-54 07:32:01736Iofezhqp QmhuqxmWAXNZIVRAT9869-80-48 07:32:04 91.5[facility] TuwuaswISQGEFRLZN0764-93-03 07:32:0432.8[facility]annHEMATOLOGY 2014-08-31 07:32:04 Test Item Value Reference Range Interpretation Comments MCH (test code = MCH) 30.0 pg 27.0-31.0 [facility] CrhxlqyYMXQDRYFME8755-01-98 07:32:0440.8[facility] HermannHEMATOLOGY 2014-08-31 07:32:0413.4[facility] HermannCHEM SERIG9709-26-34 07:32:043.7[facility]annCHEM DZSHF0701-27-43 07:32:041.1[facility]annCHEM WCKVK6182-85-54 07:32:0413[facility]annCHEM ZVIUM0346-31-56 07:32:0412.6[facility]annCHEM ZDOGG3037-95-37 07:32:0421[facility]annCHEM FBZFO7304-60-71 07:32:0477 [facility]annCHEM ORETL5393-11-43 07:32:0422[facility]annCHEM PANEL 2014-08-31 07:32:040.2[facility]annCHEM KOSHM6566-73-12 07:32:044.0[facility]annCHEM MPTLW2164-64-45 07:32:047.7[facility]annCHEM AEDSQ8095-35-84 07:32:048.9[facility]annCHEM FTVAQ4048-12-91 07:32:06438Dvljnmyp HermannCHEM ZKENJ3321-59-57 07:32:0489[facility]annCHEM SENGL5988-75-24 07:32:0417 [facility]annCHE[facility] UJMRH7593-90-06 07:32:041.3[facility] HermannCHEM PANEL 2014-08-31 07:32:043.6[facility]annCHEM FPDIV6147-10-86 07:32:31162Ycghdozj HermannCHEM JUILN6905-84-77 07:32:0427[facility]annCHEM JFIJD4969-33-52 07:32:0477[facility] GoytkymCJONYSNTJH3337-66-40 07:32:040.0[facility] CXYXYVIVRK9866-46-29 07:32:0410.0[facility] WfluriuRODCUKPYFT2317-80-71 07:32:04 4.0[facility] RddhggmCQESKUDTTR3198-01-12 07:32:043.9[facility] HermannHEMATOLOGY 2014-08-31 07:32:042.4[facility] FetmsnaZKNCQWIUPJ8192-97-73 07:32:040.7[facility] DztyqgaZFQGBSSHSZ5664-94-60 07:32:04 Test Item Value Reference Range Interpretation Comments Tot Cell Ct (test code = Tot Cell Ct) 100 1 [facility] TodbszrHSYRIVUFYI8522-19-72 07:32:041+ *ABN*(08/31/14 1:32 AM)[facility] UaryovxUWRCQYOABE7638-32-67 07:32:04Normal (08/31/14 1:32 AM)[facility] IHAZGAEBNH8348-15-22 07:32:040.0[facility] JaphohrZWCDSTLLGT1049-52-35 07:32:04 33.0[facility] ZgfejymYIKHXASTHW2539-87-67 07:32:040.3[facility] HermannHEMATOLOGY 2014-08-31 07:32:0453.0[facility] GenahhfDDGYOKABZS8495-64-55 07:32:044.46[facility] ZvknwayCDUDJGNYSK1609-10-28 07:32:047.4[facility] TlakycsAQBBKNZJDI9597-86-81 07:32:0412.2[facility] CqntghdZQCKYZXGYV0101-53-15 07:32:048.5[facility] CJTTYTPJUN7146-96-36 07:32:91569Zrxikjjy TzqliflWGEXKLICFR7070-79-61 07:32:04 91.5[facility] JuwqiyfAZUQUHPJCN7414-79-26 07:32:0432.8[facility]annHEMATOLOGY 2014-08-31 07:32:04 Test Item Value Reference Range Interpretation Comments MCH (test code = MCH) 30.0 pg 27.0-31.0 [facility] YcavlqtDIKRJKWMJF1026-57-49 07:32:0440.8[facility]annHEMATOLOGY 2014-08-31 07:32:0413.4[facility]annCHEM ZMJVE2021-27-05 08:20:0057[facility]annCHEM REGAD9443-52-04 08:20:57804Zmoybmcc HermannCHEM CSEAG3075-11-54 08:20:000.5[facility]annCHEM UZVRI4079-80-79 08:20:000.6[facility]annCHEM KFLNX1170-22-19 08:20:000.1[facility]annCHE[facility] KKDJF1226-86-13 08:20:0034 [facility] GVWFC2626-95-86 08:20:0041[facility]annCHEM PANEL 2014-06-04 08:20:0086[facility] RHYDJ0394-20-12 08:20:000.9[facility]annCHE[facility] HNZPJ1370-34-20 08:20:003.4[facility]annCHE[facility] NMGNG9833-69-31 08:20:003.6[facility]annCHE[facility] EIINB6342-18-33 08:20:007.0[facility]annCHE[facility] DZCPH2324-18-12 08:20:004.7[facility]annCHEM PPSKC5268-79-06 08:20:001.4 [facility]annCHE[facility] FAZEZ0001-64-92 08:20:55495Hpofmipb HermannCHEM PANEL 2014-06-04 08:20:009.2[facility]annCHEM TXDHK5892-01-05 08:20:32867Gomegvdb HermannCHEM PVIOE6525-68-25 08:20:008[facility]CHE[facility] RRBLJ3733-01-94 08:20:000.9[facility]annCHEM WGUSY8014-35-56 08:20:004.1[facility]annCHEM ZAUTU6633-50-07 08:20:88483Ealrktrp HermannCHEM XORUW5551-59-67 08:20:0025 [facility] RPPUA1446-00-96 08:20:0084[facility]annCHEM PANEL 2014-06-04 08:20:0016.1[facility] EfhfdwqXZQDBBEBHJ5026-04-69 08:20:001.1[facility] XoihrrkKUIRBRCFGB5953-81-34 08:20:000.2[facility] NokrutdRWMWOEWOFC4910-81-72 08:20:005.8[facility] KgxmcvjYDGTXQBUBL7208-52-96 08:20:001.8[facility] NMHIFGJMID2219-63-07 08:20:0020.1[facility] KkvpgcoJDVTWUTEXP4277-53-62 08:20:00 12.0[facility] HsmskhjNEEODODGYW2043-29-23 08:20:0065.2[facility] HermannHEMATOLOGY 2014-06-04 08:20:000.2[facility] VjlwaliZSTRMXCJXN9500-73-46 08:20:002.5[facility] OsaoewhDTRZUUMWIN4267-19-65 08:20:007.8[facility] LaqiuwyWUURIBPFXC8231-35-61 08:20:0034.7[facility] TripzvbKVREUTLGSY5535-55-68 08:20:0092.8[facility] KESJRCURTN6599-49-27 08:20:39575Mdarqmwz LucixlqWNUGSMOVAI4658-79-75 08:20:00 34.4[facility] ExusqmdDBLRAGQVYY3565-71-73 08:20:0014.0[facility] HermannHEMATOLOGY 2014-06-04 08:20:00 Test Item Value Reference Range Interpretation Comments MCH (test code = MCH) 31.9 pg 27.0-31.0 [facility] LejkceqTKOEVUHNBN8687-74-52 08:20:0011.9[facility] HermannHEMATOLOGY 2014-06-04 08:20:003.73[facility] XhwzcnhYISOEKCZBI9475-93-63 08:20:008.9[facility]annCHEM JRSVJ2337-48-78 08:20:0057[facility]annCHEM ESMDZ3252-12-25 08:20:41803Paglnsbo HermannCHEM XMSIZ9027-13-13 08:20:000.5[facility]annCHEM WBAPR9513-53-79 08:20:000.6[facility]annCHEM MINRY9610-53-22 08:20:000.1 [facility]CHE[facility] LRZLN6728-81-38 08:20:0034[facility]annCHEM PANEL 2014-06-04 08:20:0041[facility]annCHE[facility] VEMPR7045-52-86 08:20:0086[facility]annCHEM OYDDH9465-30-46 08:20:000.9[facility]annCHEM GZZQM5739-19-03 08:20:003.4[facility]annCHE[facility] LKZST7258-36-32 08:20:003.6[facility]annCHE[facility] UHTRP9605-75-76 08:20:007.0[facility]annCHE[facility] FLUUB2160-19-40 08:20:004.7 [facility] TLSCY9784-91-97 08:20:001.4[facility]annCHEM PANEL 2014-06-04 08:20:40357Uyhojmch HermannCHEM IUECU7297-67-66 08:20:009.2[facility]annCHEM WWLOU0671-10-43 08:20:70868Trdwrrff HermannCHEM RIPHT3981-13-59 08:20:008[facility]annCHE[facility] MOLDD2826-06-54 08:20:000.9[facility]annCHE[facility] PVYFD0563-81-35 08:20:004.1[facility]annCHEM LVMAC0871-01-10 08:20:80286 [facility]CHE[facility] TKGYY3251-81-58 08:20:0025[facility]annCHEM PANEL 2014-06-04 08:20:0084[facility]annCHEM BKIKW5629-64-31 08:20:0016.1[facility] CwndnrbISIGWDPKDO7071-07-99 08:20:001.1[facility] FzlazclCIAJMDALXX4440-36-16 08:20:000.2[facility] VuwzpohMKJRIBXUEX9342-22-36 08:20:005.8[facility] KRPDRBGMAJ3582-79-94 08:20:001.8[facility] AxgfvshXLIYOTBBAJ5097-15-60 08:20:00 20.1[facility] FzkspwsLIKNDLPGRA8355-29-97 08:20:0012.0[facility] HermannHEMATOLOGY 2014-06-04 08:20:0065.2[facility] LqzmeloSVWQFPQDNZ0704-63-50 08:20:000.2[facility] IaknfluAUYWMUPWTQ6829-39-47 08:20:002.5[facility] WzcryciEPSHQKINSG6671-04-50 08:20:007.8[facility] GotitaxYBOCDOFTAA6946-06-10 08:20:0034.7[facility] MCCQFXIQXM9476-78-66 08:20:0092.8[facility] CplhkweRTKRGXATVF2095-57-62 08:20:00 238[facility] JhhlohmLIIZAQLIPV6118-19-91 08:20:0034.4[facility] HermannHEMATOLOGY 2014-06-04 08:20:0014.0[facility] IybvbqoLNFOFAVTLD9652-21-12 08:20:00 Test Item Value Reference Range Interpretation Comments MCH (test code = MCH) 31.9 pg 27.0-31.0 [facility] SkolbyuSTVOZPWSEO9526-97-61 08:20:0011.9[facility] HermannHEMATOLOGY 2014-06-04 08:20:003.73[facility] TjvidutVGHTIIOWJH8197-93-48 08:20:008.9[facility]annCHEM VKFJB6553-65-53 09:04:0076[facility]annCHEM AEOLG2799-12-49 09:04:001.6[facility]annCHEM IBGUJ8887-53-71 09:04:000.3[facility]annCHEM VAVWU0939-81-22 09:04:003.4[facility]annCHEM FPPSG7221-96-52 09:04:001.0 [facility]annCHE[facility] NPBUD7526-46-67 09:04:000.1[facility]annCHEM PANEL 2014-06-03 09:04:0033[facility]annCHEM XWQCM0704-24-58 09:04:0040[facility]annCHEM VCYSN8575-69-08 09:04:000.4[facility]annCHE[facility] MLTDF8370-90-12 09:04:0075[facility]annCHEM LAGPT0950-59-99 09:04:006.7[facility]annCHEM TNSLS4253-80-96 09:04:003.3[facility]annCHEM PAJBI4026-07-70 09:04:003.5 [facility] CmcwpeuQFMTGQQZVLFZ5307-25-60 09:04:0012.8[facility] HermannELECTROLYTES 2014-06-03 09:04:0095[facility] ZppdljsIDVWIGQDVNKC6847-17-62 09:04:008.7[facility] HvzabkbJXLNEPJRRJDV4510-67-98 09:04:44941Apmarwrl CibhvncXHTSYMGYAOJH0282-72-56 09:04:003.8[facility] DvagkxwINRDPLMMVNMO1167-79-13 09:04:0027[facility] RSZLEOOPHTWC4127-49-11 09:04:006[facility] QoxhbjzFOUGBGAROTRH7369-83-13 09:04:00 138[facility] LgssqusAUSCHPRQLVOS9415-18-62 09:04:001.1[facility] GKTUOHKJDWFF6544-87-57 09:04:0089[facility] KgkreaaPMBIBFXEDH9650-46-57 09:04:00 3.54[facility] KyvoemoLIFTHXOTMA5870-89-27 09:04:009.4[facility] HermannHEMATOLOGY 2014-06-03 09:04:0011.2[facility] QtbjfnoZXJMTGXVNU6460-02-56 09:04:03467Hjoirmpc HgybhvbEHGLXRHHHV0165-39-12 09:04:0014.3[facility] JyqcaekTCXZNAWXCR7885-29-25 09:04:007.7[facility] EesidztLPGHNZLXJR6903-21-32 09:04:0034.2[facility] DKBYWUGMKV3492-74-29 09:04:0092.8[facility] NunhphtPKPGKPCQPA0198-74-26 09:04:00 32.9[facility] BzgaiscBFYYRSNBUJ8645-24-42 09:04:00 Test Item Value Reference Range Interpretation Comments MCH (test code = MCH) 31.7 pg 27.0-31.0 [facility] NhpthcsNVYFFEUVNN3260-96-53 09:04:001.1[facility] HermannHEMATOLOGY 2014-06-03 09:04:000.2[facility] HmmohllLTLCIMFZDS0898-13-62 09:04:000.2[facility] QjibodzWECZJWBDXY5139-92-84 09:04:006.5[facility] EceqlibYPUFOXTXUQ1992 09:04:001.6[facility] ZskrgltWCYZYZRCMV5025-40-30 09:04:0017.1[facility] OBXZRYUDWC3682-03-64 09:04:002.3[facility] HrrphpoXZJNFSAPHJ2090-00-46 09:04:00 11.3[facility] XpgwdceBFHUUFDXIW7100-80-16 09:04:0069.1[facility] HermannCHEM PANEL 2014-06-03 09:04:0076[facility]annCHEM EJVYZ5147-26-56 09:04:001.6[facility]annCHEM AJPPL6951-64-28 09:04:000.3[facility]annCHEM JXDPZ1196-22-65 09:04:003.4[facility]annCHEM DPZPY0138-52-48 09:04:001.0[facility]annCHEM NUPHG6357-46-01 09:04:000.1[facility]annCHEM BZEQJ1402-35-93 09:04:0033 [facility]annCHE[facility] BPTVW5947-31-09 09:04:0040[facility]annCHEM PANEL 2014-06-03 09:04:000.4[facility]annCHEM HDZEI5400-85-00 09:04:0075[facility]annCHEM BJQTU0856-62-30 09:04:006.7[facility]annCHEM AYFVU3385-04-66 09:04:003.3[facility]annCHEM MOLSI7635-60-88 09:04:003.5[facility] ZMMPPKYMCSXZ7710-66-36 09:04:0012.8[facility] IyopntxFVDAAAEJNTBS0148-19-12 09:04:0095[facility] ExttcsyQVCNFNOXZSYR7359-75-37 09:04:008.7[facility] IPIAIPZBBLWO6006-56-94 09:04:28193Cxlupvmj KtpkjeuBCDRSIZOQXYO9715-61-33 09:04:003.8[facility] NcfzhloCCIOHCPDWLLK3157-03-86 09:04:0027[facility] EOINPHSBNUKB5267-24-21 09:04:006[facility] MdwauryZBZLUOZJVWEC1553-88-09 09:04:00 138[facility] XalgsvpXAJYOLUWTOAM1177-71-98 09:04:001.1[facility] GBLWJEMLQCFO3373-79-52 09:04:0089[facility] LajqclcKZMLTQAURU1155-35-02 09:04:00 3.54[facility] WmxaxlmIRCJREOKLS5925-75-84 09:04:009.4[facility] HermannHEMATOLOGY 2014-06-03 09:04:0011.2[facility] SritqlkTTVNHKWYMA5135-33-22 09:04:39692Gftjtsxb OvdodazDDOXEJFWPH9581-38-62 09:04:0014.3[facility] ElxbqtoQQLNTLGSFH3244-73-51 09:04:007.7[facility] MdxmboaMFXQEDFJRJ7277-36-90 09:04:0034.2[facility] UUWKUGNHKA1655-45-84 09:04:0092.8[facility] WrmegsvDXCRIREACL5769-53-48 09:04:00 32.9[facility] KqjrrohEZJYFRJSJR4079-61-52 09:04:00 Test Item Value Reference Range Interpretation Comments MCH (test code = MCH) 31.7 pg 27.0-31.0 [facility] TdklupfHIDYLNHJXN1729-38-60 09:04:001.1[facility] HermannHEMATOLOGY 2014-06-03 09:04:000.2[facility] XmoygreTQPZNXYMMF4754-88-47 09:04:000.2[facility] DphzzmeBICBGFGBJO8606-77-71 09:04:006.5[facility] QzauaoyUMQQNOFXTZ9440-88-74 09:04:001.6[facility] OezegjrYFHHMIXYWT4245-62-41 09:04:0017.1[facility] DZIQNDMDWI4786-48-84 09:04:002.3[facility] IyklenvZHQUAGIXEV6997-71-47 09:04:00 11.3[facility] XpasdsdJCKFSYWDHF7718-10-82 09:04:0069.1[facility] HermannCHEM PANEL 2014-06-02 08:36:007.1[facility]annCHEM EAEAB1089-44-13 08:36:0043[facility]annCHEM VELQF4131-35-34 08:36:004.0[facility]annCHEM FKQCB4893-82-22 08:36:001.3[facility]annCHEM QGETV0602-83-74 08:36:003.1[facility]annCHEM HLUBW5530-07-65 08:36:0086[facility]annCHEM GUCHG2887-85-08 08:36:000.5 [facility]annCHE[facility] GSEBP7610-56-55 08:36:0049[facility]annCHEM PANEL 2014-06-02 08:36:000.1[facility]annCHEM VAZDE9842-28-47 08:36:000.4[facility]annCHEM CQERF9100-71-25 08:36:26028Buzwueuw HermannCHEM RGXDH0616-40-16 08:36:0077[facility]annCHEM QSGRN1274-02-78 08:36:004.3[facility]annCHEM VYBUU8254-33-17 08:36:62468Zdhsqfwc HermannCHEM KHDJJ9084-49-08 08:36:009.0 [facility]annCHEM QDVZD7501-10-62 08:36:0022[facility]annCHEM PANEL 2014-06-02 08:36:0011[facility]annCHEM BYVLY9912-17-51 08:36:17807Ymodqung HermannCHEM GKZUH0911-29-93 08:36:001.3[facility]annCHEM ZEBSE8413-65-71 08:36:0099[facility]annCHEM QOPQF4912-84-67 08:36:0015.3[facility] UXRLCHBZEP9828-23-37 08:36:000.5[facility] BlxnvrwXWLBHFMWWI6887-96-39 08:36:000.2 [facility] XdfgtifFOMEYCWYCZ7216-09-19 08:36:0010.5[facility] HermannHEMATOLOGY 2014-06-02 08:36:000.1[facility] JqfenicITPJLRTNYA6788-31-90 08:36:0013.9[facility] TwryvltIQFVCSOKDG4174-99-57 08:36:009.0[facility] UyrumxfDYJMGRWEYJ2473-76-25 08:36:0076.4[facility] IfcavacSXBUMFPIHC7073-39-57 08:36:001.9[facility] QMUWOYNXPS8155-66-71 08:36:001.2[facility] NgstyxjWFBQHCVLHT6601-92-44 08:36:008.0 [facility] AifhmfoMAIYAMGRMR6701-69-18 08:36:0014.0[facility] HermannHEMATOLOGY 2014-06-02 08:36:50890Jwmutiti XdrvpvdGFWNIJIDBF4740-72-13 08:36:0033.7[facility] VfbrtroYGSBTJUWLP3769-18-24 08:36:0094.2[facility] FbdilgcJOAVPGOABP6628-53-42 08:36:00 Test Item Value Reference Range Interpretation Comments MCH (test code = MCH) 31.8 pg 27.0-31.0 [facility] PoazfzuYXZNOMXVQK2374-10-77 08:36:0036.3[facility] HermannHEMATOLOGY 2014-06-02 08:36:0012.3[facility] DhlksvdUFSGCYGOPX8927-70-59 08:36:0013.8[facility] WbysuhyZFWSGVNUXW5134-36-66 08:36:003.86[facility]annCHEM JAVTC0916-36-79 08:36:007.1[facility]annCHEM CSUIR2228-06-27 08:36:0043[facility]annCHEM GRUXT9029-00-35 08:36:004.0[facility]annCHEM TTBNK7884-06-01 08:36:001.3 [facility]annCHE[facility] YXXVV1909-81-94 08:36:003.1[facility]annCHEM PANEL 2014-06-02 08:36:0086[facility]annCHEM OJKLL8876-72-76 08:36:000.5[facility]annCHEM RSYIF0050-96-43 08:36:0049[facility]annCHEM ZQHQK2358-40-87 08:36:000.1[facility]annCHEM WDVIR8360-60-22 08:36:000.4[facility]annCHEM YQARM7767-62-64 08:36:49218Pzuozhbq HermannCHEM NERAM5249-85-79 08:36:0077 [facility]annCHE[facility] PSOVN6031-68-89 08:36:004.3[facility]annCHEM PANEL 2014-06-02 08:36:68893Cnnuohwq HermannCHEM GGXNZ5554-16-15 08:36:009.0[facility]annCHEM AHYNV4576-60-91 08:36:0022[facility]annCHEM ZZBDG0974-84-02 08:36:0011[facility]annCHEM KNSGI0688-88-15 08:36:74862Kisjtvyf HermannCHEM HPZFE6644-05-89 08:36:001.3[facility]annCHEM MIDGW5617-27-89 08:36:0099 [facility]annCHE[facility] XMAWG9821-94-91 08:36:0015.3[facility] HermannHEMATOLOGY 2014-06-02 08:36:000.5[facility] DaktzgaUNKFKURSLS5677-15-06 08:36:000.2[facility] MrmqhngMBPTNWEQYY5778-26-87 08:36:0010.5[facility] GcelmaiKCAWSMBIJD4528-91-44 08:36:000.1[facility] FnclgvxNUONXQEMDH7330-80-05 08:36:0013.9[facility] DJSCIUAULG9203-82-16 08:36:009.0[facility] PqfvftiBYKFCXQZID2708-54-14 08:36:00 76.4[facility] MvsthqxQBLMIEXBKS9071-38-81 08:36:001.9[facility] HermannHEMATOLOGY 2014-06-02 08:36:001.2[facility] EstqzyrQLYNSCQOVF8413-54-75 08:36:008.0[facility] HlfwitnHRGKFSPPWJ3207-44-52 08:36:0014.0[facility] WkusafuNNJCXEJOFF6898-20-20 08:36:80300Tyuqthzp CpuqepkPFUIYLTJFY7488-95-06 08:36:0033.7[facility] RQDKMUQTSY5753-25-56 08:36:0094.2[facility] SzglhczSPKEYNNKKD0400-98-04 08:36:00 Test Item Value Reference Range Interpretation Comments MCH (test code = MCH) 31.8 pg 27.0-31.0 [facility] FsmhjtmWPNXYOFWPV7909-77-74 08:36:0036.3[facility] HermannHEMATOLOGY 2014-06-02 08:36:0012.3[facility] XrdtcrnXVZKWIPLSB5549-42-42 08:36:0013.8[facility] DpmijuvFQEXSLSGGH5018-60-20 08:36:003.86Metx[facility] TusppqeABXEJRSFUO8171-05-81 12:45:001.04[facility]Kind[facility] HospitalLefkgkkNXLHSNEROU7814-90-43 12:45:00 Test Item Value Reference Range Interpretation Comments PT (test code = PT) 13.5 s 12.0-14.7 [facility]EiusrfiLZEFSPSTQO0279-74-10 12:45:00 Test Item Value Reference Range Interpretation Comments PTT (test code = PTT) 25.6 s 22.9-35.8 [facility] CampusQkyabyuBFTZQFJCAW5201-13-11 12:45:001.04[facility] CampusannHEMATOLOGY 2014-06-01 12:45:00 Test Item Value Reference Range Interpretation Comments PT (test code = PT) 13.5 s 12.0-14.7 [facility]bujhxeLZWLXCDSMZ1437-76-38 12:45:00 Test Item Value Reference Range Interpretation Comments PTT (test code = PTT) 25.6 s 22.9-35.8 [facility] RMDKYHD9170-45-16 11:20:47Product available (06/01/14 6:20 AM)[facility] UWFFNLL6962-99-72 11:20:47Product available (06/01/14 6:20 AM)[facility] GTVNDMW8705-79-33 11:20:47Product available (06/01/14 6:20 AM)[facility] TZOUQNY5686-55-82 11:20:47 Product available (06/01/14 6:20 AM)[facility] SEUSUTK2530-97-12 11:20:00Negative (06/01/14 6:20 AM)[facility] ORBZDAY4453-92-13 11:20:00Negative (06/01/14 6:20 AM)[facility] HermannCHEM CZHTP0487-20-82 11:14:00 68Metxrimd HermannCHEM PSULM9534-42-83 11:14:0068[facility] HermannCHEM PANEL 2014-05-13 09:40:40176Lxrrabei HermannCHEM ILSYS9984-20-70 09:40:0089[facility] HermannCHEM KVPBY9781-48-94 09:40:000.2[facility] HermannCHEM NSQJA4052-79-06 09:40:000.1[facility] HermannCHEM OCKVG5420-06-34 09:40:0025[facility] HermannCHEM AMOWZ5978-06-05 09:40:003.4[facility] HermannCHEM YEBKF0566-63-28 09:40:0014 [facility]annCHEM GXKAU9490-40-57 09:40:007.1[facility] HermannCHEM PANEL 2014-05-13 09:40:003.7[facility] HermannCHEM ELYEP0150-26-60 09:40:000.9[facility] HermannCHEM GWRQN1978-14-92 09:40:000.1[facility] RjqtfhjQEXKTAUSNRWR4919-56-50 09:40:0010.2[facility] XqpnehtDXPEUVCJHRJP4388-28-70 09:40:47354Chpeqdqm Dusty MQDEKRCKZPZI1991-78-85 09:40:0026[facility] NculdxjYEOPVKCXOVVZ5944-14-63 09:40:00 8.2[facility] BzrhnwmWNBBKEUEUSYB2558-61-45 09:40:001.0[facility] RDYTEIIQRCRS3874-69-57 09:40:42945Yttioiaq JlusaxhUHENWQLXNYAX1578-67-71 09:40:20867Ogpfzquw CfunodcQSIOIPQFJWMF7785-85-30 09:40:009[facility] RQSLLMWNMVDG4551-59-44 09:40:05276Zaxuryjm DbkdptoKELUWCAQTETJ2276-52-52 09:40:003.2[facility] AjvxbupTIADPUTYIW3037-60-09 09:40:17792Fiewpsov Dusty WBKVPEBFLL4540-45-79 09:40:0013.8[facility] SvawwezHLUVBZBRTK0971-16-33 09:40:00 8.0[facility] SvmizevCYJSABSVOT7245-12-35 09:40:003.85[facility] HermannHEMATOLOGY 2014-05-13 09:40:0010.7[facility] LvgfrvsNHKLRNWAPI1292-08-73 09:40:0035.2[facility] GychfpzIRPBOCFDDU6436-55-31 09:40:0012.3[facility] JcsnofqBACZVBCUKX6720-10-14 09:40:0035.0[facility] XhkgqmwZNRQLPBPIX6018-12-70 09:40:00 Test Item Value Reference Range Interpretation Comments MCH (test code = MCH) 32.0 pg 27.0-31.0 [facility] LqedxwuGTWDXYJAFB2298-62-01 09:40:0091.4[facility] HermannHEMATOLOGY 2014-05-13 09:40:0057.7[facility] DrvijkrZXMFQJOFTT5934-73-42 09:40:0031.0[facility] YkszhdeQGNKBFPDDV6841-16-63 09:40:000.1[facility] UnfygilZFNNLKLHGU4877-06-12 09:40:000.2[facility] PgvnlvaJMMDOLERXN4371-42-02 09:40:001.3[facility] WCCJONSAWJ6595-30-10 09:40:007.8[facility] TloxpgsGBHFXDFVXR5104-82-73 09:40:006.3 [facility] BdejwqtOOZJRBWYFJ6250-56-49 09:40:002.2[facility] HermannHEMATOLOGY 2014-05-13 09:40:000.8[facility] HxukweqXDHOQRLNPA7908-74-60 09:40:003.3[facility] HermannCHEM YWTCZ4862-26-00 09:40:59321Aezdnkpz HermannCHEM PTLMY3901-72-28 09:40:0089[facility] HermannCHEM AUXSR8413-48-96 09:40:000.2[facility] HermannCHEM HTYEJ6893-24-50 09:40:000.1[facility] HermannCHEM PIUKT7236-38-15 09:40:0025 [facility] HermannCHEM LFCXT2320-08-82 09:40:003.4[facility] HermannCHEM PANEL 2014-05-13 09:40:0014[facility] HermannCHEM RSSPZ7487-74-37 09:40:007.1[facility] HermannCHEM ELLMT3513-19-93 09:40:003.7[facility] HermannCHEM VBLKI7580-06-91 09:40:000.9[facility] HermannCHEM JZNYZ2408-79-42 09:40:000.1[facility] ZTHRIYSOGHTZ5713-83-35 09:40:0010.2[facility] WacreynILAOBDHRRILF9540-67-05 09:40:02297Ewynpnoi EkskliqZIMNNNHDUPVW0518-20-39 09:40:0026[facility] ASMLQAKQYZPW6995-93-87 09:40:008.2[facility] YfdaqqoYRALFKPLTWST6962-12-72 09:40:001.0[facility] ZhpgwzqPLVIRAYYBNOP0363-13-11 09:40:56702Bvuhrmmm Dusty KXUPEDLVUYKX7196-10-79 09:40:77219Qoonhicm ZmenhbeDGNHYEDVHKNZ8931-09-49 09:40:009[facility] HizrqorQPSQLVUNPMCF5952-84-57 09:40:24696Sprojinf Dusty SDDGIVBCFAXT4450-54-23 09:40:003.2[facility] AceqdwuYNBZCXCLAA7377-00-26 09:40:00 246[facility] QujjkedWGYKWDZEFR7868-58-10 09:40:0013.8[facility] HermannHEMATOLOGY 2014-05-13 09:40:008.0[facility] NpekeshTFBIJQMUJT3114-97-45 09:40:003.85[facility] UopekxbJGJVZRUEIP7000-63-18 09:40:0010.7[facility] FvhzlerMJGUVVRBWH6474-36-84 09:40:0035.2[facility] DhjoixyENCBCSGLQP9984-63-10 09:40:0012.3[facility]y AVJVWFARUZ7874-21-22 09:40:0035.0[facility] PqybageIJAILBYZAX0573-92-66 09:40:00 Test Item Value Reference Range Interpretation Comments MCH (test code = MCH) 32.0 pg 27.0-31.0 [facility] GecghrmRGBUZLOSOT1115-19-32 09:40:0091.4[facility]annHEMATOLOGY 2014-05-13 09:40:0057.7[facility] FusocusDSZVGVEQCN6313-59-89 09:40:0031.0[facility] LmwkfuhXWDYHAYHCQ4843-42-77 09:40:000.1[facility] UajllihTKZQYTLJOE8485-31-26 09:40:000.2[facility] OdkxngnCSLHKYCIXL6563-76-19 09:40:001.3[facility] LOXPVNYJDJ4041-28-58 09:40:007.8[facility] QwyukyuGVEEMHTKCU0424-99-64 09:40:006.3 [facility] NsicbnbKLZEFXJHHD9417-75-20 09:40:002.2[facility]annHEMATOLOGY 2014-05-13 09:40:000.8[facility] OhcutheCRUPKKLFOF6049-66-26 09:40:003.3[facility] HermannCHEM KEQCQ9515-66-11 08:32:001.8[facility] HermannCHEM UWIPJ8054-07-05 08:32:08491Effjfdoh HermannCHEM BSWRP2184-89-62 08:32:000.9[facility] HermannCHEM JPSAK5043-03-41 08:32:09123Uiefugjs HermannCHEM VZTML2348-50-18 08:32:0093 [facility]annCHEM BJOYC4971-37-19 08:32:0013[facility]annCHEM PANEL 2014-05-06 08:32:009.1[facility] HermannCHEM KGADM7574-85-51 08:32:42465Fmyijmfb HermannCHEM RLETR2240-30-27 08:32:0021[facility]annCHEM FLITS3729-52-38 08:32:004.1[facility]annCHEM XRBPM5160-32-15 08:32:0015.1[facility] HermannCHEM AOQMP3191-07-31 08:32:004.7[facility] WulecmjNOOKUCRITW4139-83-74 08:32:003.93 [facility] ZocllnjWARPBTKWGC5321-67-12 08:32:007.6[facility]annHEMATOLOGY 2014-05-06 08:32:0012.4[facility] IukzxgtRBXUYDDOPK9524-13-27 08:32:0034.0[facility] HavxscpTUAVRPUFYE5866-64-51 08:32:98761Lidsmjfr RgnyhmbXYTGGVDJFR5936-61-46 08:32:007.5[facility] XmenqfgJREMAZQXLL6890-74-30 08:32:0014.2[facility] Dusty TLCUJEFONK1408-30-48 08:32:0036.5[facility] TfxglqjNYWFRHTFVB3208-81-21 08:32:00 Test Item Value Reference Range Interpretation Comments MCH (test code = MCH) 31.6 pg 27.0-31.0 [facility] VxorrkjVQVGGGBPJV0631-52-81 08:32:0092.9[facility]annHEMATOLOGY 2014-05-06 08:32:0049.6[facility] IzwggjoXJRNZHYNAU2310-10-41 08:32:003.8[facility] ActgqpxBRYXRVFIML1520-75-11 08:32:000.4[facility] GuzmohqQBVYUVYJYS8293-21-82 08:32:007.8[facility] TdmolpcEYYDHFZPZQ6333-51-37 08:32:0038.4[facility]y FRKUYNXJIK0999-41-77 08:32:002.9[facility] SumxitlKBIFPSONYV4151-65-95 08:32:000.6 [facility] PsolssmKDXCCARZWQ0251-04-27 08:32:003.8[facility] HermannHEMATOLOGY 2014-05-06 08:32:000.3[facility] HermannCHEM DWHYC8868-88-00 08:32:001.8[facility] HermannCHEM UISRP7375-66-94 08:32:26619Alcsinvr HermannCHEM EMQJD8203-29-19 08:32:000.9[facility] HermannCHEM WKQRA0171-17-68 08:32:12339Cpkqzgwg HermannCHEM NBULD6277-67-52 08:32:0093[facility] HermannCHEM MTUUI8978-15-07 08:32:0013 [facility]annCHEM KTFYS0632-12-56 08:32:009.1[facility] HermannCHEM PANEL 2014-05-06 08:32:02140Qnvctphp HermannCHEM NJNET6891-06-89 08:32:0021[facility] HermannCHEM AGNYO7093-73-79 08:32:004.1[facility] HermannCHEM VXHUR9031-54-48 08:32:0015.1[facility] HermannCHEM AWWPH9633-88-73 08:32:004.7[facility] VWTCMHFIWD7021-14-03 08:32:003.93[facility] XezwghgQICATSHMVQ0333-95-30 08:32:00 7.6[facility] PpuhudyYLGFHGPFMQ8989-71-81 08:32:0012.4[facility]annHEMATOLOGY 2014-05-06 08:32:0034.0[facility] VikmcbdNJBGKPUOZS8483-90-52 08:32:86375Zzlivdty RlwxcttXARQMPPHIS8619-80-18 08:32:007.5[facility] HtgfpheAGDKRUFFYE4960-03-75 08:32:0014.2[facility] UbdtobsPWQLMDXAML5339-69-59 08:32:0036.5[facility] AJNSOVWBEV6827-52-28 08:32:00 Test Item Value Reference Range Interpretation Comments MCH (test code = MCH) 31.6 pg 27.0-31.0 [facility] MzvhsgmKOXNDHDATD6079-91-49 08:32:0092.9[facility]annHEMATOLOGY 2014-05-06 08:32:0049.6[facility] GzmgafzKSODORZMOG8644-33-69 08:32:003.8[facility] BnoxdmrFHWRHUGRQB3248-34-05 08:32:000.4[facility] RlfjvmqCLDTHXNRQK3231-45-01 08:32:007.8[facility] QijjsqaRMXXSAYPOR2116-58-98 08:32:0038.4[facility] SLDROYPHTZ3087-53-58 08:32:002.9[facility] AdwpnqvEWIOOMINMO5640-64-20 08:32:000.6 [facility] KbisdifQEBBFERQWO4017-46-04 08:32:003.8[facility] HermannHEMATOLOGY 2014-05-06 08:32:000.3[facility] HermannCHEM NXEAD6248-00-61 00:43:27023Nyzupzch HermannCHEM SYDYO0833-25-72 00:43:41746[place] HermannCHEM PQEQP3006-12-10 00:43:78767Pdpoilad HermannCHEM VKUVH8343-06-94 00:43:16504Zhzwvien HermannDRUG YFNFZW8487-68-33 19:00:58Negative *NA*(05/05/14 2:00 PM)[facility]annDRUG WDBLUQ1857-85-94 19:00:58Negative *NA*(05/05/14 2:00 PM)[facility] HermannDRUG EHEIRO0633-30-34 19:00:58Negative *NA*(05/05/14 2:00 PM)[facility]annDR[facility] EUBJNQ5739-50-80 19:00:58Negative *NA*(05/05/14 2:00 PM)[facility]annDR[facility] PHIEUF4141-38-52 19:00:58Negative *NA*(05/05/14 2:00 PM)[facility]annDR[facility] LEEEXN0964-43-57 19:00:58Positive *ABN*(05/05/14 2:00 PM)[facility]annDR[facility] HTQTJY2525-62-53 19:00:58Negative *NA*(05/05/14 2:00 PM)[facility]annDR[facility] JSEVRZ8623-43-38 19:00:58Negative *NA*(05/05/14 2:00 PM)[facility]annDR[facility] JUWERM5982-53-74 19:00:58Positive *ABN*(05/05/14 2:00 PM)[facility]annDR[facility] VNFLJR4854-50-41 19:00:58See Note 5(05/05/14 2:00 PM)[facility]annDRUG SCREEN 2014-05-05 19:00:58Negative *NA*(05/05/14 2:00 PM)[facility]annDR[facility] SCREEN 2014-05-05 19:00:58Negative *NA*(05/05/14 2:00 PM)[facility]annDR[facility] SCREEN 2014-05-05 19:00:58Negative *NA*(05/05/14 2:00 PM)[facility]annDR[facility] SCREEN 2014-05-05 19:00:58Negative *NA*(05/05/14 2:00 PM)[facility]annDR[facility] SCREEN 2014-05-05 19:00:58Negative *NA*(05/05/14 2:00 PM)[facility]annDR[facility] SCREEN 2014-05-05 19:00:58Positive *ABN*(05/05/14 2:00 PM)[facility]annDR[facility] SCREEN 2014-05-05 19:00:58Negative *NA*(05/05/14 2:00 PM)[facility]annDR[facility] SCREEN 2014-05-05 19:00:58Negative *NA*(05/05/14 2:00 PM)[facility]annDR[facility] SCREEN 2014-05-05 19:00:58Positive *ABN*(05/05/14 2:00 PM)[facility]annDR[facility] SCREEN 2014-05-05 19:00:58See Note 5(05/05/14 2:00 PM)[facility]annCHEM PANEL 2014-05-05 07:33:002.3[facility] HermannCHEM PGZJK6875-09-32 07:33:000.2[facility] HermannCHEM ELQMQ0689-93-32 07:33:89947[place] HermannCHEM KJHTO7996-03-18 07:33:0022[facility] HermannCHEM JBUNE6881-79-91 07:33:0031[facility] HermannCHEM QJOVF3185-80-26 07:33:009.4[facility] HermannCHEM QOKVQ7223-99-48 07:33:004.3 [facility]annCHEM KVMNI9021-76-31 07:33:003.1[facility] HermannCHEM PANEL 2014-05-05 07:33:28235Dqyzdlwl HermannCHEM SXDBS9027-62-65 07:33:0023[facility] HermannCHEM NCPKC6256-18-70 07:33:009.4[facility] HermannCHEM WLWRI3183-84-85 07:33:001.1[facility] HermannCHEM ODKFJ8599-71-72 07:33:0015[facility]annCHEM QRBHR7749-88-25 07:33:38781Pqkygfne HermannCHEM HXGHE1685-25-20 07:33:67574 [facility]annCHEM TKJCG3396-57-17 07:33:0095[facility] HermannCHEM PANEL 2014-05-05 07:33:005.1[facility]CHE[facility] ACEHU8745-94-15 07:33:000.8[facility]annCHEM WQCMQ9859-35-94 07:33:0014.1[facility]annCHEM BJEFW3093-41-50 07:33:0014[facility] UauakcjRLTYHZLTRR7067-83-28 07:33:0012.9[facility] KTHDBABMCO3012-85-48 07:33:004.19[facility] TfbcuwzIMFKAZALHM2016-66-24 07:33:00 90.2[facility] YcasmndNRJVRSDEAU5736-42-10 07:33:0012.9[facility]annHEMATOLOGY 2014-05-05 07:33:0037.8[facility] NaxvquzYGRUZJPEOH9468-82-98 07:33:0012.9[facility] IjjjjixLDTEOWXBUP6897-95-42 07:33:0034.2[facility] KkpmudtENSNMVSTSM2821-80-43 07:33:00 Test Item Value Reference Range Interpretation Comments MCH (test code = MCH) 30.9 pg 27.0-31.0 [facility] NeszmmjRDEVAFSCAY5489-23-36 07:33:97364Dzcqodwl HermannHEMATOLOGY 2014-05-05 07:33:007.6[facility] YaexswrOBAPGKFSSS8297-37-43 07:33:00Normal (05/05/14 2:33 AM)[facility] YbspkyyDBYEDWHPGF2283-95-59 07:33:001+ *ABN*(05/05/14 2:33 AM)[facility] QjtvaqfLAFYFORUTS3034-84-36 07:33:0066.3[facility] WSTXBLTAEW2458-55-91 07:33:0026.2[facility] IllwrvvXBCNYPPUAZ4172-46-44 07:33:00 0.0[facility] QenncznWFQTUKVPMY6100-97-62 07:33:006.8[facility] HermannHEMATOLOGY 2014-05-05 07:33:000.7[facility] AmbgrrxFKRAMVJQWK7574-95-67 07:33:000.9[facility] MztwvokAAOXNEQKRV7312-95-51 07:33:008.5[facility] BnvyabxLDRSSZUFAV1814-24-24 07:33:003.4[facility] GjeowwuCXMEKFIGWM4968-06-57 07:33:000.1[facility] TNMRFRKKXF7952-89-05 07:33:000.0[facility]annCHEM NTJKS3899-30-80 07:33:002.3 [facility]CHE[facility] LFOXN2772-44-52 07:33:000.2[facility]annCHEM PANEL 2014-05-05 07:33:75689Opmaldha HermannCHEM PDSTP0794-21-84 07:33:0022[facility]annCHE[facility] GMZOV4975-66-98 07:33:0031[facility]CHE[facility] QKLJJ6708-49-02 07:33:009.4[facility]annCHE[facility] ZBWHL8320-18-65 07:33:004.3[facility]annCHE[facility] DKAHW3486-08-88 07:33:003.1[facility]annCHE[facility] RDDQM1726-84-16 07:33:29270 [facility] FTFPX2180-89-15 07:33:0023[facility]annCHEM PANEL 2014-05-05 07:33:009.4[facility]annCHE[facility] RBIMX2964-87-94 07:33:001.1[facility]annCHE[facility] BLXGW9107-55-77 07:33:0015[facility]annCHE[facility] HRYDE0799-26-57 07:33:57236Dmmaklmj HermannCHEM KRREH9273-91-28 07:33:47117Umlgvbvg HermannCHEM EQOAW5310-01-18 07:33:0095[facility]annCHE[facility] OPERP0231-73-63 07:33:005.1 [facility]annCHE[facility] MCIRL6202-95-15 07:33:000.8[facility]annCHEM PANEL 2014-05-05 07:33:0014.1[facility]annCHE[facility] ZCLTL1501-40-83 07:33:0014[facility] EmlxuqrBGFCQTBVHI0326-51-18 07:33:0012.9[facility] SfwilxxOMHYVSOXNJ7842-00-02 07:33:004.19[facility] ZsrggiyPZSQEQLKIN8243-07-12 07:33:0090.2[facility] LALSIEAVFX8938-15-36 07:33:0012.9[facility] YsxgofdKVRCVWZVFD5993-82-39 07:33:00 37.8[facility] JfexpxmOWDLXWQZBF2154-02-17 07:33:0012.9[facility]annHEMATOLOGY 2014-05-05 07:33:0034.2[facility] MlddbmoCSWSTWZQVS4288-77-03 07:33:00 Test Item Value Reference Range Interpretation Comments MCH (test code = MCH) 30.9 pg 27.0-31.0 [facility] QvktpnlJSQSWXSNQC2048-65-01 07:33:96496Vwsjtzhy HermannHEMATOLOGY 2014-05-05 07:33:007.6[facility] PbgbgyrSCOAYLUIQF5849-71-68 07:33:00Normal (05/05/14 2:33 AM)[facility] PqubbvnLFKGFXRFHD0071-39-12 07:33:001+ *ABN*(05/05/14 2:33 AM)[facility] YtoepjqKWHMOWGWTR9828-21-25 07:33:0066.3[facility] OJZTVCUPLX0416-09-64 07:33:0026.2[facility] OgrivsmXSRDDPALKU2354-89-86 07:33:00 0.0[facility] HbkbrifFPSAOYHRKZ7783-39-40 07:33:006.8[facility] HermannHEMATOLOGY 2014-05-05 07:33:000.7[facility] HcsgsynEKLWOIRDDD1929-32-62 07:33:000.9[facility] KrxkuzaAYZMUWOPFT2465-83-91 07:33:008.5[facility] RxxnzwvTZAOAVPIZO2724-34-88 07:33:003.4[facility] KqbixjqTIYUYURHCX1083-01-94 07:33:000.1[facility] PAOCWPILYC8727-64-93 07:33:000.0[facility]annBLOOD BANK JKAFEFY5629-19-11 12:10:00Negative (04/21/14 7:10 AM)[facility] B[facility] LJXNQLC2972-44-64 12:10:00Negative (04/21/14 7:10 AM)[facility]annCHE[facility] UKJJR9318-87-89 10:47:00 1.6[facility]annCHEM LGAZJ3080-65-93 10:47:004.0[facility]annCHEM PANEL 2014-02-08 10:47:000.9[facility]annCHEM CWNEW1902-87-55 10:47:003.9[facility]annCHE[facility] JOPXF3247-07-51 10:47:0013[facility]annCHE[facility] ZGDCS5546-46-40 10:47:0015.6[facility]annCHEM HEWAQ9975-21-99 10:47:000.3[facility]annCHE[facility] INRCG5987-07-57 10:47:0096[facility]annCHEM AUUQF7074-08-94 10:47:0014 [facility]annCHE[facility] HJPNX7747-69-63 10:47:0022[facility]annCHEM PANEL 2014-02-08 10:47:003.4[facility]annCHE[facility] YNXZC4941-72-28 10:47:007.3[facility]annCHEM IQOYF8099-19-28 10:47:008.7[facility]annCHEM PMOXH1588-28-30 10:47:0012[facility]annCHE[facility] PKDOQ9495-76-23 10:47:0091[facility]annCHE[facility] KKDCR9465-94-44 10:47:0026[facility]annCHE[facility] ZKDLX0027-33-66 10:47:99165 [facility]annCHE[facility] TWNNH8207-79-18 10:47:003.6[facility]annCHEM PANEL 2014-02-08 10:47:06140Uvrwirax HermannCHEM NXXWD0019-63-68 10:47:000.9[facility]annCHEM HWZLN2954-38-25 10:47:08919Tkrvtlrp AlxyuofVZPTGWAKOMIG1171-10-27 10:47:0015.6[facility] GdnltknGAPHJFGHVNYS5497-10-45 10:47:008.7[facility] JDWDXYONLSOM1676-72-23 10:47:0026[facility] VqxzyxxOGUUEUIVNDXC1751-42-44 10:47:00 103[facility] HoyfvueRLCVYCCXMGQU8105-16-66 10:47:003.6[facility] AKBDFBQVJICS4139-03-41 10:47:59276Ufhngmbo OmmddjsQXSMXOTSWFMH5652-19-82 10:47:000.9[facility] ElzheoxTRQNLKSGTWEI0895-97-68 10:47:0012[facility] YMBUGQIEZMLH0150-89-28 10:47:0091[facility] FigwakiQJKURUZJQPJW9293-84-69 10:47:00 122[facility] PehanxxTDJNLSNWVZ9712-65-44 10:47:003.5[facility] HermannHEMATOLOGY 2014-02-08 10:47:000.3[facility] JnctdsfQGVEQYTAJT8906-87-24 10:47:006.0[facility] SdjazfnPHULOHGOMT0836-81-65 10:47:002.0[facility] MqamfigULUFQULQEL7104-24-72 10:47:001.0[facility] QzcxubiYEARSUZVCA6722-76-27 10:47:000.3[facility] PATDWYDHDX1270-64-86 10:47:0063.9[facility] AfexteaHJQUENBUJE4236-60-00 10:47:00 10.8[facility] GqgvazcMCCVKLQQRL5075-41-96 10:47:0021.5[facility] HermannHEMATOLOGY 2014-02-08 10:47:008.2[facility] KixihudJUUOXFZDIQ4680-70-95 10:47:0012.3[facility] RsxqxrxNVGDLOPQMJ7918-95-24 10:47:89006Yzahedbu MeyppyiXFRIBEGJLA3859-76-18 10:47:0011.6[facility] DvdauzkVISRNUAZKA4888-16-87 10:47:003.76[facility] HVJVQHPXXU2359-99-91 10:47:0033.2[facility] WqleakzSJNAIAWZPP0369-13-80 10:47:00 Test Item Value Reference Range Interpretation Comments MCH (test code = MCH) 30.9 pg 27.0-31.0 [facility] CoyannsFRJHKBKFKX5909-30-14 10:47:009.4[facility] HermannHEMATOLOGY 2014-02-08 10:47:0093.0[facility] GoerkhvGYANUKJKPC9873-31-10 10:47:0034.9[facility] HermannCHEM NHJHD2683-63-23 10:47:001.6[facility]annCHEM ZSEYN7318-22-85 10:47:004.0[facility]annCHEM WHNEM6766-13-82 10:47:000.9[facility]annCHEM JFPQU1614-71-90 10:47:003.9[facility]annCHEM UGAPT9814-08-86 10:47:0013 [facility]annCHE[facility] XKGCV3810-06-47 10:47:0015.6[facility] HermannCHEM PANEL 2014-02-08 10:47:000.3[facility]annCHEM QNHER8546-46-33 10:47:0096[facility]annCHEM FSARX6789-33-62 10:47:0014[facility]annCHEM JCGML9442-55-24 10:47:0022[facility]annCHEM LDQVC5261-53-59 10:47:003.4[facility]annCHEM GMYKD6040-32-45 10:47:007.3[facility]annCHEM ZSXYN1676-82-54 10:47:008.7 [facility]annCHE[facility] OUNVM9815-84-19 10:47:0012[facility]annCHEM PANEL 2014-02-08 10:47:0091[facility]annCHEM PIFWK1676-59-36 10:47:0026[facility]annCHEM OSZOI3645-18-52 10:47:56347Zitwcwwt HermannCHEM DELHO1902-34-57 10:47:003.6[facility]annCHEM CKOYL3704-89-89 10:47:74652Beoxptbr HermannCHEM OCLNG1878-11-46 10:47:000.9[facility]annCHEM HPKMR9567-41-49 10:47:73686 [facility] FptdpdiRYFHNADKFIMH1657-88-89 10:47:0015.6[facility] HermannELECTROLYTES 2014-02-08 10:47:008.7[facility] MlwkdxhBPDAMDLPXSIO2820-71-87 10:47:0026[facility] MnwxnebQFZMNGFXOTRL7122-88-53 10:47:77324Mhxegxsf LtiwqluAKUGZXMBVMFX1917-42-83 10:47:003.6[facility] PidtheiFBEAGQTRPHJB3300-67-81 10:47:78658Okcpvqnc Dusty SUXVRFDKSQSU2142-03-71 10:47:000.9[facility] HwabcdtWLYKPUFCQLXJ9839-27-98 10:47:0012[facility] CxfmewoLGZCDZXYJROH3967-29-74 10:47:0091[facility] NZSTVEOISUAO6812-55-56 10:47:80508Jnxdzvcb QunjxpaMKIVCCJIRN1754-94-38 10:47:00 3.5[facility] AteaurvRIWRHEUVYP3778-65-21 10:47:000.3[facility] HermannHEMATOLOGY 2014-02-08 10:47:006.0[facility] KjbpnfuSPIWHGESYU8028-33-92 10:47:002.0[facility] RllkmdmTNYAITLIVF0768-40-56 10:47:001.0[facility] AuuopdwXDHVQWZMPX8699-07-33 10:47:000.3[facility] GuppxxjARIOYYVGAZ6095-30-36 10:47:0063.9[facility] EGNBQXPHVR4696-24-81 10:47:0010.8[facility] JovxmlfRASRHNGFYK1031-58-09 10:47:00 21.5[facility] IlaferiYXPVMTJFHE3942-85-97 10:47:008.2[facility] HermannHEMATOLOGY 2014-02-08 10:47:0012.3[facility] MgexdlsQSBJLBTVJL0658-88-98 10:47:10773Yslurdnr HjbfcvvWRGLKAWKPP4320-58-69 10:47:0011.6[facility] TyehactMRKAWYRRCD7909-86-45 10:47:003.76[facility] NhrongaMRZJTCXPTY2817-87-33 10:47:0033.2[facility] GJWKCXMQTO0401-44-38 10:47:00 Test Item Value Reference Range Interpretation Comments MCH (test code = MCH) 30.9 pg 27.0-31.0 [facility] IxrhcmzPCBMRWGADJ5164-45-77 10:47:009.4[facility] HermannHEMATOLOGY 2014-02-08 10:47:0093.0[facility] DupfigjTVMUFOWBON8550-46-20 10:47:0034.9[facility]annURINE AND YFSHY1134-55-02 08:30:24Negative (02/07/14 3:30 AM)[facility] OXCLV6682-39-83 08:30:24 Test Item Value Reference Range Interpretation Comments UA pH (test code = UA pH) 6.5 1 5.0-8.0 [facility] PVRIV3268-45-52 08:30:24Negative *NA*(02/07/14 3:30 AM) [facility] FGZQF1078-78-44 08:30:24Negative (02/07/14 3:30 AM) [facility] CZOWK7758-14-45 08:30:24Negative (02/07/14 3:30 AM) [facility] FVPDH0208-87-99 08:30:24Negative *NA*(02/07/14 3:30 AM) [facility] IZPHQ5887-72-92 08:30:240.2[facility] FTCSN4413-20-13 08:30:24Negative (02/07/14 3:30 AM)[facility] DYPEW1959-17-70 08:30:24Negative (02/07/14 3:30 AM)[facility] CNJQG9541-95-85 08:30:24Clear (02/07/14 3:30 AM)[facility] STOOL 2014-02-07 08:30:24 Test Item Value Reference Range Interpretation Comments UA Spec Grav (test code = UA Spec 1.037 1 Grav) [facility] RQZIL0991-37-23 08:30:24Yellow *NA*(02/07/14 3:30 AM) [facility] RUUCM2803-20-94 08:30:24Performed (02/07/14 3:30 AM) [facility] PEGKR6047-76-40 08:30:24Negative (02/07/14 3:30 AM) [facility] ZGKMQ7348-36-50 08:30:24 Test Item Value Reference Range Interpretation Comments UA pH (test code = UA pH) 6.5 1 5.0-8.0 [facility] IWJTC9744-53-95 08:30:24Negative *NA*(02/07/14 3:30 AM) [facility] EUEVM0442-54-68 08:30:24Negative (02/07/14 3:30 AM) [facility] JZXBW0908-06-20 08:30:24Negative (02/07/14 3:30 AM) [facility] DZUTK9925-97-07 08:30:24Negative *NA*(02/07/14 3:30 AM) [facility] EXNON6231-65-84 08:30:240.2[facility] SZNLJ9621-99-50 08:30:24Negative (02/07/14 3:30 AM)[facility] GSFWI4207-82-55 08:30:24Negative (02/07/14 3:30 AM)[facility] KJIYK7380-28-64 08:30:24Clear (02/07/14 3:30 AM)[facility] STOOL 2014-02-07 08:30:24 Test Item Value Reference Range Interpretation Comments UA Spec Grav (test code = UA Spec 1.037 1 Grav) [facility] CKXBX0081-51-70 08:30:24Yellow *NA*(02/07/14 3:30 AM) [facility] EENWW7941-35-36 08:30:24Performed (02/07/14 3:30 AM) [facility]annCHEM GCDYI6836-86-38 08:30:0073[facility]annCHEM PANEL 2014-02-07 08:30:000.7[facility]annCHE[facility] UXOOF4770-93-86 08:30:000.5[facility]annCHE[facility] TCMAA9711-44-89 08:30:000.1[facility]annCHEM OAMMC0401-16-09 08:30:0096[facility]annCHE[facility] JNRTU5674-54-60 08:30:0026[facility]annCHE[facility] NVFVE3033-94-69 08:30:0019[facility]annCHE[facility] ZWXSC6940-14-34 08:30:007.8 [facility]CHE[facility] KFQKZ9707-13-09 08:30:003.5[facility]annCHEM PANEL 2014-02-07 08:30:000.4[facility]annCHEM MMPWB4208-00-81 08:30:004.3[facility]annCHEM TBDNO1921-68-42 08:30:000.8[facility]annCHEM SLUPH5083-45-26 08:30:58970Wnyrdyrs HermannCHEM FIAOK2710-81-98 08:30:0011[facility]annCHE[facility] XRCSA6760-27-14 08:30:001.0[facility]annCHEM ZXELF4266-96-69 08:30:53834 [facility]annCHE[facility] IFYNN4895-32-90 08:30:008.8[facility]annCHEM PANEL 2014-02-07 08:30:0026[facility]annCHEM IRAGU7987-68-75 08:30:03334Qdndhbld HermannCHEM PZYCG2563-54-02 08:30:003.5[facility]annCHEM CPILM7464-27-18 08:30:46280Zqqwqcrl HermannCHEM FHTSA8371-00-77 08:30:0013.5[facility] RJLFPBEKMI2361-99-09 08:30:000.0[facility] WccsqevYPQGBDLACC6982-30-41 08:30:00 Normal (02/07/14 3:30 AM)[facility] WqmbqyqOSARDMTQSI2598-69-83 08:30:001+ *ABN*(02/07/14 3:30 AM)[facility] KvtmpdfCMXPUGLWHS8813-69-05 08:30:001.2[facility] QuqcafvNMYJMSMPEN3232-64-65 08:30:0078.0[facility] SvpmyjuKAHHZRRTOS2861-64-36 08:30:000.2[facility] RefwnymFCQKUMJBYK7937-73-31 08:30:000.0[facility] TLLBDBQFWO6057-62-35 08:30:008.0[facility] RfyrccpXSRFCSBNZV9251-40-22 08:30:00 13.0[facility] NbbmzmyANYOIFFFUP0404-50-08 08:30:001.0[facility]annHEMATOLOGY 2014-02-07 08:30:002.0[facility] YocpfnrQBMGPTUPZT4977-47-27 08:30:0011.8[facility] UewywnfOCCMPVIQTX4246-82-25 08:30:003.77[facility] EzkwjmyXYCTAQLADA8571-09-96 08:30:0015.1[facility] LyntpyaNCINFQLXQB0695-67-55 08:30:0034.2[facility] VGKAXAFLHQ5588-06-70 08:30:0011.6[facility] NtjqpicGOTPYCOLLS6331-18-49 08:30:00 Test Item Value Reference Range Interpretation Comments MCH (test code = MCH) 31.4 pg 27.0-31.0 [facility] UxvggyqINIQGTPAXK2030-92-71 08:30:0091.7[facility] HermannHEMATOLOGY 2014-02-07 08:30:0034.5[facility] BhbzsprMDWHGMMDTF0009-13-05 08:30:0011.8[facility] UjwzklyYETJQFXPZH8752-78-51 08:30:008.1[facility] TgvcuflEMGASNBXFD1849-43-94 08:30:37764Lwdogpot IvtohvdVWNFSZANCH7324-85-16 08:30:00Negative (02/07/14 3:30 AM)[facility]annCHEM YOJBK2195-53-90 08:30:0073[facility]annCHEM PANEL 2014-02-07 08:30:000.7[facility]annCHEM LOZWV8121-66-48 08:30:000.5[facility]annCHEM FCPKQ9290-64-76 08:30:000.1[facility]annCHEM AFOYN9109-95-57 08:30:0096[facility]annCHEM SWBUM5599-98-21 08:30:0026[facility]annCHEM CFUIX4088-84-51 08:30:0019[facility]annCHEM NHOFT5455-40-54 08:30:007.8 [facility]annCHE[facility] HDVHJ2129-84-26 08:30:003.5[facility]annCHEM PANEL 2014-02-07 08:30:000.4[facility]annCHEM RYTXV7231-99-18 08:30:004.3[facility] HermannCHEM IXNOZ7905-31-09 08:30:000.8[facility] HermannCHEM FADOC2760-63-30 08:30:50388Rfpcwgzn HermannCHEM OBIDS5595-36-49 08:30:0011[facility]annCHEM NEJWT8446-26-57 08:30:001.0[facility]annCHEM RSGZS6847-37-30 08:30:08312 [facility]annCHEM SXKOB8294-73-86 08:30:008.8[facility]annCHEM PANEL 2014-02-07 08:30:0026[facility]annCHEM XIJVA8696-97-68 08:30:51699Ytcgpfnq HermannCHEM BWZTA9614-27-48 08:30:003.5[facility]annCHEM QHWQA7757-40-13 08:30:58370Gnpfwesj HermannCHEM KITCD8445-50-46 08:30:0013.5[facility] CXZAASKRFP0550-42-24 08:30:000.0[facility] RavcxpwJWAVCHPFZD9612-04-16 08:30:00 Normal (02/07/14 3:30 AM)[facility] HxcwqxwKGTQLUPWWZ0992-74-82 08:30:001+ *ABN*(02/07/14 3:30 AM)[facility] NzbkcobVABGMOFESJ9568-68-76 08:30:001.2[facility] ChxtqwhVSLKPZDZZC7430-45-36 08:30:0078.0[facility] JxwjdkjGCSVKEBBVX0589-76-62 08:30:000.2[facility] KidyyduAWUFLOSECE6682-68-11 08:30:000.0[facility] JVFRBHQGUN4848-85-86 08:30:008.0[facility] ExjtxuvDQEOLFPBQO9389-74-10 08:30:00 13.0[facility] XsmoaynAPRHLXJUBE8469-58-32 08:30:001.0[facility] HermannHEMATOLOGY 2014-02-07 08:30:002.0[facility] ExwrybySURALRFWZJ7318-34-30 08:30:0011.8[facility] JjebtdrWXVITBBLRO3215-68-93 08:30:003.77[facility] BggikowMWBMAGBMPN6964-57-40 08:30:0015.1[facility] CdpiqqrZHAYOKXCMJ3087-06-35 08:30:0034.2[facility] OQDGOCSCWS9615-69-98 08:30:0011.6[facility] HhjpfdpRJFHOFTOHE9393-36-71 08:30:00 Test Item Value Reference Range Interpretation Comments MCH (test code = MCH) 31.4 pg 27.0-31.0 [facility] HdiiaucNKZOOWRSMI7829-28-56 08:30:0091.7[facility] HermannHEMATOLOGY 2014-02-07 08:30:0034.5[facility] UhcbmidEIXDXQSZXS5858-21-40 08:30:0011.8[facility] DyptiqrEGSQISOWHT0879-39-21 08:30:008.1[facility] JqqhxfbAVSIETNHCW4833-65-40 08:30:64888Ehcespea UqqftewOQVEPEXWUC7804-03-74 08:30:00Negative (02/07/14 3:30 AM)[facility]annCHEM RGBKK1707-16-06 20:10:0035[facility] HermannCHEM PANEL 2014-01-18 20:10:0039[facility] HermannCHEM FEQVX3203-58-35 20:10:004.6[facility] HermannCHEM QBHWG0937-31-11 20:10:000.9[facility]annCHEM SJPII5883-82-57 20:10:58542Zhxzwnhv HermannCHEM IFFEQ7352-34-59 20:10:000[facility]annCHEM YPSHV9110-90-67 20:10:000.3[facility]annCHEM HHYXX8933-86-43 20:10:008.7 [facility]annCHEM PEDHE2939-90-40 20:10:000.3[facility] HermannCHEM PANEL 2014-01-18 20:10:004.1[facility]annCHEM YDJXZ9999-64-77 20:10:0095[facility]annCHEM VHPDY3834-01-38 20:10:009.2[facility]annCHEM XENTT0137-13-43 20:10:0031[facility]annCHEM MYVUV2745-33-62 20:10:004.0[facility] HermannCHEM HVGWG3410-76-47 20:10:75588Gljrhxht HermannCHEM VBRQQ4517-31-10 20:10:89320 [facility]annCHEM IZWZJ3036-37-15 20:10:001.1[facility] HermannCHEM PANEL 2014-01-18 20:10:0081[facility] HermannCHEM JCXMC4438-32-11 20:10:0014[facility] HermannCHEM DCVHE4233-17-03 20:10:0011.0[facility] HixnojyIGELPFZNNF8566-15-58 20:10:005.1[facility] NliaknhMTVTDIHCLK1834-45-88 20:10:000.1[facility] KJURZDODVD8195-15-72 20:10:002.2[facility] JtrsohpSCNXFMCVFO1552-78-95 20:10:000.9 [facility] EcfepauHASEXSOSNX3541-86-21 20:10:000.4[facility] HermannHEMATOLOGY 2014-01-18 20:10:0028.5[facility] TwfsllrQTSLVKFDIT3492-72-68 20:10:0011.2[facility] BrhzizjDKMWPSPQZX7784-55-54 20:10:0053.7[facility] KkoystxSLYBPLMIMP2036-55-62 20:10:004.2[facility] KqivddxWAZQDSBNYT4606-61-10 20:10:001.5[facility] PHIEVCCLDJ1021-71-33 20:10:001.06[facility] YzqhqnsBLLFUTEQUU1500-24-02 20:10:00 Test Item Value Reference Range Interpretation Comments PT (test code = PT) 13.7 s 12.0-14.7 [facility] ZfzncxoZFGUGUTVML6716-80-76 20:10:00 Test Item Value Reference Range Interpretation Comments PTT (test code = PTT) 32.9 s 22.9-35.8 [facility] CtspdmtUCQJMZKTDB4946-24-44 20:10:23539Bdyjkchz HermannHEMATOLOGY 2014-01-18 20:10:008.1[facility] JnjmlteYDYHRJREVS6603-90-29 20:10:00 Test Item Value Reference Range Interpretation Comments MCH (test code = MCH) 32.1 pg 27.0-31.0 [facility] DmmobeaPXERBRWWHV6435-92-66 20:10:0034.9[facility] HermannHEMATOLOGY 2014-01-18 20:10:0011.5[facility] NwolwldJTUTNBYQGT6697-65-44 20:10:007.8[facility] UxivykbRRBRIXDHCQ6124-36-87 20:10:004.15[facility] BsadxhyVMMKBCVCRN8497-60-40 20:10:0013.3[facility] OwdktabFTJDVCETND6214-35-13 20:10:0038.2[facility] AJQTEKWWBD7567-16-54 20:10:0092.2[facility] HermannCHEM FVCHW7955-91-90 20:10:0035 [facility] HermannCHEM EOMUL8288-35-89 20:10:0039[facility] HermannCHEM PANEL 2014-01-18 20:10:004.6[facility] HermannCHEM XINDQ5217-49-03 20:10:000.9[facility] HermannCHEM XIUWV3925-56-09 20:10:17330Rsczsakm HermannCHEM SXFEP4319-55-81 20:10:000[facility] HermannCHEM MJRXP8318-00-73 20:10:000.3[facility] HermannCHEM AQYTP2488-46-49 20:10:008.7[facility] HermannCHEM RNWCN8141-46-17 20:10:000.3 [facility]annCHEM LYBEW6492-31-74 20:10:004.1[facility] HermannCHEM PANEL 2014-01-18 20:10:0095[facility] HermannCHEM ZHFDW3152-49-75 20:10:009.2[facility] HermannCHEM ITKEX8430-76-00 20:10:0031[facility]annCHEM KTDRA0640-62-50 20:10:004.0[facility] HermannCHEM NFOZT2778-87-59 20:10:45556Bccdwxle HermannCHEM VNVCF5854-76-54 20:10:05195Bqezjpda HermannCHEM OHBYU6141-79-16 20:10:001.1 [facility]annCHEM QTYJL7828-65-88 20:10:0081[facility] HermannCHEM PANEL 2014-01-18 20:10:0014[facility] HermannCHEM PALUN6925-92-20 20:10:0011.0[facility] AcnojziMCCKBRNAWA2457-62-00 20:10:005.1[facility] TqsruruNAIMQGOKDX7989-81-82 20:10:000.1[facility] ZbdtukxWIIJKPWQOC8691-96-94 20:10:002.2[facility] BMQWEXAGAZ9586-08-76 20:10:000.9[facility] IdbojitFOMVAQKYDL5585-58-40 20:10:000.4 [facility] OcbdqixWSCMZRSQKI4574-78-28 20:10:0028.5[facility] HermannHEMATOLOGY 2014-01-18 20:10:0011.2[facility] IsjwubySZRUDRTRFW2315-78-13 20:10:0053.7[facility] AjolbybBQAZZQHIIG2424-60-54 20:10:004.2[facility] OzehjtpMMNMVCRMRZ0373-08-99 20:10:001.5[facility] PswyikwTKLXXRHCIJ9794-72-72 20:10:001.06[facility] XEQCVMPKTB2629-14-46 20:10:00 Test Item Value Reference Range Interpretation Comments PT (test code = PT) 13.7 s 12.0-14.7 [facility] ZgtgutkUJVATIIFEE3237-67-85 20:10:00 Test Item Value Reference Range Interpretation Comments PTT (test code = PTT) 32.9 s 22.9-35.8 [facility] CvkepkuYNFUZGRFDN9635-65-65 20:10:00516Yswlbkwx HermannHEMATOLOGY 2014-01-18 20:10:008.1[facility] PnffyamOWACAJTPFE9311-05-94 20:10:00 Test Item Value Reference Range Interpretation Comments MCH (test code = MCH) 32.1 pg 27.0-31.0 [facility] OavuikaTUCIJKFSTZ3856-64-46 20:10:0034.9[facility] HermannHEMATOLOGY 2014-01-18 20:10:0011.5[facility] NfvbxmbXBFRYVRHOQ8918-58-91 20:10:007.8[facility] EdbjcvkZWYDVJIYFS8831-89-17 20:10:004.15[facility] MhssetiGSQAHXIONP0748-33-51 20:10:0013.3[facility] YrkcadsLVKECYSNMI5641-40-36 20:10:0038.2[facility] UIJOBHOTQN6205-23-56 20:10:0092.2[facility] HbceeqgEWTVOUQDTU3423-90-54 15:08:00 5.1[facility] XvkfzakLAEZZHTNUM3431-94-51 15:08:004.12[facility] HermannHEMATOLOGY 2014-01-01 15:08:0012.9[facility] HermannCHEM LFFBL4978-55-05 15:08:001.2[facility] HermannCHEM OTQPG1408-26-00 15:08:63200Pslqidjh HermannCHEM ZBFRB9111-55-10 15:08:74970Oneddlhm HermannCHEM VYXMC7588-45-23 15:08:009.0[facility] HermannCHEM FCZIM3863-88-16 15:08:0029[facility] HermannCHEM BJIIN8321-84-04 15:08:004.0 [facility] HermannCHEM KYVNA3762-50-49 15:08:65487Xqptvmfk HermannCHEM PANEL 2014-01-01 15:08:001.0[facility] HermannCHEM BACFV8991-45-88 15:08:005[facility] HermannCHEM PFEBO5181-48-50 15:08:0092[facility] HermannCHEM HDPSF5948-67-63 15:08:0012.0[facility] HermannCHEM OAILX0727-95-58 15:08:004.2[facility] FGLBDLDPVM4864-66-29 15:08:0044.4[facility] JpyfihaNBUUBRMGEJ3478-39-65 15:08:00 38.7[facility] TolkorjBHNDVMGIDA6910-06-80 15:08:0011.4[facility] HermannHEMATOLOGY 2014-01-01 15:08:000.5[facility] YksjjigKPGZWMYFEF7001-05-19 15:08:005.0[facility] NttamsxPKYCWDIRIV5189-20-91 15:08:002.3[facility] VwbnqxqFOYYBUIAOY7461-11-32 15:08:002.0[facility] MtmxsuiNRUUAUNHOT9640-18-00 15:08:000.3[facility] MIIQZVYNFT1349-92-54 15:08:000.6[facility] AtqqpcrQMRQRRGILE1772-82-07 15:08:00 Test Item Value Reference Range Interpretation Comments MCH (test code = MCH) 31.3 pg 27.0-31.0 [facility] LyrizqtNIOBFHKQYJ8749-11-29 15:08:0033.4[facility] HermannHEMATOLOGY 2014-01-01 15:08:89719Iywhpovw YuccbwtNLKMNGMPUW5270-21-63 15:08:0038.6[facility] ZgvzuesIOJZZDHOFN4355-54-60 15:08:0093.7[facility] CrcuabbVEOFEFRMZM9676-21-69 15:08:0013.0[facility] OgcuyinLAMGPEXTGY4943-88-70 15:08:007.9[facility] DFAUIHGMDW6226-65-63 15:08:005.1[facility] YmfslunVALVBHGGDV9498-53-95 15:08:00 4.12[facility] AnvrnjwHEVZNSMTRB5503-16-13 15:08:0012.9[facility] HermannCHEM PANEL 2014-01-01 15:08:001.2[facility] HermannCHEM YUDID8515-60-51 15:08:12144Fnfmqfsl HermannCHEM JRULU3897-76-65 15:08:40461Qesermxd HermannCHEM LLDWU1877-99-61 15:08:009.0[facility] HermannCHEM SDLCW6453-64-69 15:08:0029[facility] HermannCHEM VQXGZ3318-08-57 15:08:004.0[facility] HermannCHEM JNHIN7247-08-25 15:08:92179 [facility] HermannCHEM QFVDB2809-41-21 15:08:001.0[facility] HermannCHEM PANEL 2014-01-01 15:08:005[facility] HermannCHEM KRICZ7360-78-97 15:08:0092[facility] HermannCHEM FDEFD9875-75-64 15:08:0012.0[facility] HermannCHEM PSPXR1717-93-69 15:08:004.2[facility] IcokgnqEXFQQNGPHZ3805-45-41 15:08:0044.4[facility] ROGFVBSTCI8057-68-99 15:08:0038.7[facility] XngknirHBGSVVBFKI3780-29-59 15:08:00 11.4[facility] EweeomyIFRWDOXGAC4166-76-56 15:08:000.5[facility] HermannHEMATOLOGY 2014-01-01 15:08:005.0[facility] WenjyzgSUGLOHJBOS0093-97-67 15:08:002.3[facility] RufowlyWDMAWZEJER7381-96-93 15:08:002.0[facility] UkekasfAXZOOGXMHM9728-22-30 15:08:000.3[facility] KscqgmkGYPIZYLVOQ8673-83-09 15:08:000.6[facility] WAPAZLQAZE2157-13-43 15:08:00 Test Item Value Reference Range Interpretation Comments MCH (test code = MCH) 31.3 pg 27.0-31.0 [facility] SvfknrwESFFXFAWBJ2422-94-70 15:08:0033.4[facility] HermannHEMATOLOGY 2014-01-01 15:08:50677Gpgzcipi ZuyuyzsOVQIJDWPGK4752-19-01 15:08:0038.6[facility] GosfwncNSXVINTXBC1704-76-30 15:08:0093.7[facility] FtggnydYOIHMLBSNR1190-94-37 15:08:0013.0[facility] BgwuidxZMJWGHVMZN0531-41-09 15:08:007.9[facility] LQVVSSAOB9557-35-13 10:20:0095[facility] VwojfmrAJZGJNELI0545-06-16 10:20:0024 [facility] XyiaeksDUTTSOVQN1454-10-24 10:20:82790Cxdllolq HermannCHEMISTRY 2013-08-24 10:20:004.2[facility] GicseztAWSDYEAUA4785-64-62 10:20:43169Feplcxnt EughirqDJFZNHXHY6891-56-97 10:20:008.9[facility] UjcqmyeDBGFEHLRT9583-82-93 10:20:001.1[facility] UywwqzqGLHGOISAN2644-43-50 10:20:0023[facility] KOTTRQMGI4934-64-59 10:20:0088[facility] NodmqatQXQWAVWSK7580-05-67 10:20:0015.2 [facility] RjnfojnWJERTXZJXR4111-11-27 10:20:000.1[facility]annHEMATOLOGY 2013-08-24 10:20:000.8[facility] OvggqblESBOYUIGTE1787-42-62 10:20:000.5[facility] MkqzwvgRLLVTGDEON9175-00-27 10:20:006.5[facility] CcaxavuDENZOTXUFX5810-23-13 10:20:000.9[facility] GkyxgmlYWWLKTTCVT9439-90-99 10:20:003.8[facility] JRCNRBCLOM9500-73-32 10:20:002.4[facility] XjdvalkDLCMWNIRCB5323-42-25 10:20:00 50.4[facility] AksumhaNYSEHOTQJZ8938-75-07 10:20:0010.3[facility] HermannHEMATOLOGY 2013-08-24 10:20:0031.9[facility] EbgahpsWJAPXBNIAM0520-90-58 10:20:0011.8[facility] JhwwfufLGEQZPUNCG6225-53-42 10:20:003.80[facility] DjfsxcsDKAOACFWSG5948-33-26 10:20:0034.6[facility] EqawcbnHJUKPYLGHD8604-75-68 10:20:86482Ztkozmve Dusty DTVBIGBNUT3101-47-44 10:20:0091.1[facility] DwpqdncMBBSZBIEDU7193-86-20 10:20:00 Test Item Value Reference Range Interpretation Comments MCH (test code = MCH) 31.0 pg 27.0-31.0 N [facility] CikaynfWXEFYKAOPO7701-64-50 10:20:0034.0[facility]annHEMATOLOGY 2013-08-24 10:20:0014.6[facility] GbsannnRLPVGEIFIU8016-25-50 10:20:008.3[facility] PhmkliyGIUEGIZTBD8275-75-73 10:20:007.6[facility] FfwmsvlUMFVDXUYX3284-95-69 10:20:0095[facility] UmpucqwYBPEWHOEM0617-75-78 10:20:0024[facility] XXOCRNNKH0582-04-33 10:20:01190Mqwuqoqp RdubdrmJRDEDCAAE6094-75-50 10:20:004.2 [facility] XjiykaaHRGQBDLEO5416-38-50 10:20:98313Pgvqjcoh HermannCHEMISTRY 2013-08-24 10:20:008.9[facility] IoxdreqSVZQNPLNV6599-21-75 10:20:001.1[facility] HxdoxafSOGKUDRVZ2195-06-96 10:20:0023[facility] HxhgikrQQTPZGUQF3705-53-21 10:20:0088[facility] CgeafznEHLXLYNGF6666-42-83 10:20:0015.2[facility] LBFFYVTJPQ6174-91-23 10:20:000.1[facility] EhbeedxZDUGXXVGWQ3684-17-12 10:20:000.8 [facility] YkifhvzTIULALPDDJ1917-84-87 10:20:000.5[facility]annHEMATOLOGY 2013-08-24 10:20:006.5[facility] TdctwrvPSDQCAIIVK0698-86-33 10:20:000.9[facility] ZzaqcjgFYPHINFUJA5831-40-39 10:20:003.8[facility] YbndmofSZGMTQPNLG6654-23-28 10:20:002.4[facility] JquyjwdMFQEBIVCNQ7192-43-83 10:20:0050.4[facility] GRXNUITRJP3966-77-52 10:20:0010.3[facility] IboxwvvEWXAHMZAYI9046-88-23 10:20:00 31.9[facility] EkbcqobYQGJLRWVIT2171-96-12 10:20:0011.8[facility]annHEMATOLOGY 2013-08-24 10:20:003.80[facility] CgcpuqsHEIPVFIUED6999-95-92 10:20:0034.6[facility] VfbnbenZUQJEHABPN2273-61-17 10:20:35042Livkpoah TminmvyKNOBMWOOOU6058-35-15 10:20:0091.1[facility] WipdrcnCZCNMIFVEH9713-10-28 10:20:00 Test Item Value Reference Range Interpretation Comments MCH (test code = MCH) 31.0 pg 27.0-31.0 N [facility] RdivvhdLYPWGAQBJA6369-29-68 10:20:0034.0[facility]annHEMATOLOGY 2013-08-24 10:20:0014.6[facility] ItlnoolJORBATJFTS7953-06-00 10:20:008.3[facility] BsymvquCXQUOFRKQP0815-75-02 10:20:007.6[facility] HukdigiNALPUPLUP6985-27-82 13:31:661547Ztnmxnrb RruftqtNHBIDNJPP1648-33-81 13:31:1513.3[facility] EQRDCOCLZ4060-84-15 13:31:708643Ibyipjms AqdmgvkQEKAMQTAD1763-11-90 13:31:1513.3 [facility] RyzksoiGJTHJCOHR5664-60-26 08:17:0086[facility] HermannCHEMISTRY 2013-08-23 08:17:43444Asbbeyyu CgdogaoZPISISVFX1461-17-53 08:17:001.2[facility] AdmjsjhXNNURMOBV8759-17-74 08:17:0019[facility] LndjnwiZYQQBKSUU8309-83-32 08:17:0087[facility] DdjdufzIQGSFKFXL0967-78-89 08:17:0027[facility] BPREOBDUL7511-76-89 08:17:04791Aoifuonf KwpwiyoTDTRIRSLX7777-53-43 08:17:008.6 [facility] XplqeosSERVXHOLH6199-45-62 08:17:003.9[facility] HermannCHEMISTRY 2013-08-23 08:17:0012.9[facility] LbmhjfqEUEENNRTOB4487-65-57 08:17:00 Test Item Value Reference Range Interpretation Comments MCH (test code = MCH) 31.3 pg 27.0-31.0 H [facility] PofycicAHTRIYWJXU2007-46-20 08:17:0090.8[facility] HermannHEMATOLOGY 2013-08-23 08:17:0032.8[facility] GrbyppnFHQBFZMGTE4393-87-70 08:17:0034.5[facility] UmpfidrPWRLRDLIZO6002-90-38 08:17:0011.3[facility] AwmlybrOKSCJJZAYX5392-18-79 08:17:008.3[facility] WwvgrewIGQLSPTJVJ3645-25-85 08:17:22242Xxmjjctc Dusty RTHECJYNVS5317-50-22 08:17:0014.7[facility] JegeqxnAQGPXUQXTH2034-08-98 08:17:00 6.9[facility] XndabhcGBNWQVEDBX0736-25-97 08:17:003.61[facility]annHEMATOLOGY 2013-08-23 08:17:000.1[facility] VwdksrpERWAWQGIUH5375-97-80 08:17:003.8[facility] MeogropQZTAGGEKWU6436-01-29 08:17:000.4[facility] OjxisboIRAGLEHJIJ4370-60-83 08:17:002.0[facility] OzuvzybNFSQLBXKRB2848-54-80 08:17:000.7[facility] OKRAOQCLCO7244-42-27 08:17:0054.5[facility] JxhkkueBKVLZLEWLQ7983-30-00 08:17:00 9.9[facility] IpsgwyxKUXZGYFAKI8781-83-99 08:17:0029.1[facility] HermannHEMATOLOGY 2013-08-23 08:17:005.7[facility] JbmbhkbPVKWLUBKMM1996-58-91 08:17:000.8[facility] HenpmceUIGBTSYZR3620-05-93 08:17:0086[facility] CkizzhtZKTBHAQCN5561-20-47 08:17:33986Rxyukeqy ExwiuxmHWISEICHT3486-07-68 08:17:001.2[facility] KJJTKGQTX4789-13-74 08:17:0019[facility] PzlfuxbHLMEGOMOT4475-61-12 08:17:0087 [facility] PriilzjAJGKAIDJQ0371-28-06 08:17:0027[facility] HermannCHEMISTRY 2013-08-23 08:17:21678Cytbtjge TgcbwlbOLCLVCMHS2440-07-34 08:17:008.6[facility] OskmuboIVWLKSNHY0787-02-26 08:17:003.9[facility] MawooqcKMQOBAFRU8597-48-68 08:17:0012.9[facility] XxdrwhnFPLRTOOHDX7689-12-17 08:17:00 Test Item Value Reference Range Interpretation Comments MCH (test code = MCH) 31.3 pg 27.0-31.0 H [facility] RwqjhpuGGCKBDDZRH9452-83-92 08:17:0090.8[facility] HermannHEMATOLOGY 2013-08-23 08:17:0032.8[facility] SrddkkdHQUJMQZIUS0743-67-91 08:17:0034.5[facility] OtzqaozGAFXHQYPUX7242-56-83 08:17:0011.3[facility] RrjlgmrHTEHGWSPRW5670-22-00 08:17:008.3[facility] DpdvvoyLZWEBDXHVZ0069-47-17 08:17:07299Olalqase [facility] OLFMWEBUHE3340-80-53 08:17:0014.7[facility] KstbgyzPZOQGOGQQF5635-00-94 08:17:00 6.9[facility] ZmhvtbrIKKCOBQOQI2764-68-89 08:17:003.61[facility] HermannHEMATOLOGY 2013-08-23 08:17:000.1[facility] LifrqhnIZHIOQIHLZ0581-68-47 08:17:003.8[facility] CofmvznZPKBXWHPZF4877-86-82 08:17:000.4[facility] VnvihjhDVUKBHNHPU5739-38-68 08:17:002.0[facility] BqdtughWJNWNAUBIA7093-86-36 08:17:000.7[facility] BANOSOXLQU9931-52-37 08:17:0054.5[facility] XbgjtbfSQOIMIORTE4860-87-94 08:17:00 9.9[facility] BwbaskfWHSKEGDVXB5638-34-25 08:17:0029.1[facility] HermannHEMATOLOGY 2013-08-23 08:17:005.7[facility] DbgjsbeMITYMEZALE6261-95-78 08:17:000.8[facility] EjdadrfRLPSXYPHS9470-31-91 11:55:0086[facility] BcklsovPFGKRHMRN8821-39-04 11:55:0027[facility] YcbcjltNAMFSQAXM5472-35-59 11:55:008.4[facility] YZMGZABOX5480-80-46 11:55:03919Ddignpye QdbqzvdDPADFUVAN8740-70-50 11:55:0093 [facility] AgnztvpOWPODDHSU2397-88-44 11:55:0016[facility] HermannCHEMISTRY 2013-08-22 11:55:61721Gzjqugcm FnvcaxfPIAPLUVNM1639-29-29 11:55:003.8[facility] PfwqanxKYSHSDSYY1944-78-31 11:55:001.2[facility] AfrlkasDRUTGUAUJ6470-47-17 11:55:0011.8[facility] HdyectxSGWWMDIPNZ4661-14-20 11:55:0014.3[facility] SKQIPMRJYB4012-22-76 11:55:30695Ujnbnrkp RofoqvoZFRCEIZXCL6147-77-87 11:55:008.3 [facility] TmxyjzsCLWDHCSECF6962-23-78 11:55:0090.8[facility] HermannHEMATOLOGY 2013-08-22 11:55:00 Test Item Value Reference Range Interpretation Comments MCH (test code = MCH) 30.0 pg 27.0-31.0 N [facility] MnkkecaWHQZUNCDNK2319-45-15 11:55:0033.0[facility] HermannHEMATOLOGY 2013-08-22 11:55:0011.4[facility] VwpflnjURBVKKLSCD1492-43-18 11:55:0034.6[facility] FuhiamoFPPCNVJQYP6485-14-76 11:55:003.81[facility] FymmdkuDEOYMDSYGO5424-98-18 11:55:006.2[facility] GdcxezyMUBCTHJEAH9479-48-66 11:55:000.4[facility] ZMHLSITSIV0455-39-99 11:55:001.6[facility] JgagudmPKLYYPKZCT2260-56-92 11:55:000.9 [facility] OnsnultMVPTBUKMLP0791-43-71 11:55:0025.4[facility] HermannHEMATOLOGY 2013-08-22 11:55:0053.7[facility] GyhskrfZUPWVMCOKH7280-48-92 11:55:000.6[facility] YprewesMZHNVUDVSJ6883-27-70 11:55:006.4[facility] MuloyfwJISFURSHAL5631-42-36 11:55:003.3[facility] QoegmknOLHOIFGOHD1731-38-26 11:55:0013.9[facility] HSQWEETDZ0475-73-24 11:55:0086[facility] QjcvryxSNREYLKCV7116-20-66 11:55:0027 [facility] EnxnbwlAMLUEZWEZ8228-02-17 11:55:008.4[facility] HermannCHEMISTRY 2013-08-22 11:55:58335Zljsaeaz QwibogwZQXHISYAF4445-32-15 11:55:0093[facility] QafszdpXDCXITOYL5056-98-97 11:55:0016[facility] BzbjeztFKBMOAJRW8207-52-54 11:55:16269Vkuwhpjm TtiezyiMKFBLNGOC7100-81-19 11:55:003.8[facility] PTXKUJXRI9404-07-15 11:55:001.2[facility] ZievllhOJGUQBCFQ7082-07-07 11:55:0011.8 [facility] XmkykglVRPPFEBPPZ5613-53-82 11:55:0014.3[facility] HermannHEMATOLOGY 2013-08-22 11:55:74601Oudlxlpq GhvuyabJOFRIUQXTE6865-65-73 11:55:008.3[facility] HsovefyPAQEQPIRRP9480-33-16 11:55:0090.8[facility] WtkpdnaLLCJFEBXIU5953-21-96 11:55:00 Test Item Value Reference Range Interpretation Comments MCH (test code = MCH) 30.0 pg 27.0-31.0 N [facility] OeeleckQQZPGZLPVF7026-82-59 11:55:0033.0[facility] HermannHEMATOLOGY 2013-08-22 11:55:0011.4[facility] MacczxcEFXPPJDBGI6198-36-64 11:55:0034.6[facility] FkbaevoUOWVLAMSNB2630-62-00 11:55:003.81[facility] SpxlkenJSKZJDPPLC3697-76-66 11:55:006.2[facility] UlecbfmTICPONDGLE5946-13-77 11:55:000.4[facility] LJEOANPSVI6895-93-50 11:55:001.6[facility] OxxbbqqGEONBAZLAI4477-76-68 11:55:000.9 [facility] MhoywcbGPFQHTQHIB7759-80-08 11:55:0025.4[facility] HermannHEMATOLOGY 2013-08-22 11:55:0053.7[facility] TbwnrajJGJPMLQKKS1859-08-32 11:55:000.6[facility] LejrzwvYUNYTTYEXB8746-23-38 11:55:006.4[facility] JjaxtckFMTKPJGYEB5117-04-25 11:55:003.3[facility] EnibswpLEKPBPMUWY2572-02-06 11:55:0013.9[facility] KVRIHDYMN9672-01-11 02:33:241221Qizwocjx BohmmwzTFNWNIQCQ4119-95-98 02:33:2212.4 [facility] AwelymfHBLIGRNCD5923-92-24 02:33:400989Yuqpnrql HermannCHEMISTRY 2013-08-21 02:33:2212.4[facility] EiqmhdxYJSEXGILN8801-67-02 15:09:336928Pesmxzqa ZwkfpelMQDNGYXPL6906-22-55 15:09:387.8[facility] MkpigfmARRLSMSQK3403-12-67 15:09:500596Caqmebua TcqxrtbDTXYVASXY0801-94-89 15:09:387.8[facility] HFGNZMDQN0087-61-81 20:56:450.7[facility] AkraqmnBCAFBXNJH4075-72-78 20:56:111803 [facility] FqoqvfjYHOOQOSDS7502-34-07 20:56:450.7[facility] HermannCHEMISTRY 2013-08-17 20:56:491314Dztgwkmg HilqjwtFLTXDDFMF3344-88-43 12:20:2737.0[facility] UynubewPWEIYJLKP1988-59-97 12:20:2737[facility] XbfotcrJZSMVBREU9079-97-88 12:20:2744[facility] VpqsyujEOABHZOYK4001-72-92 12:20:2767.9[facility] TZLCJEXRO8489-29-35 12:20:27-1[facility] UmxncmhAQPWZDCWI9118-97-56 12:20:2725 [facility] HfxhsoxIYTIOTCTX2718-42-51 12:20:277.36[facility] HermannCHEMISTRY 2013-08-17 12:20:2737.0[facility] VvrsmepZSGXTKWYH7003-74-19 12:20:2737[facility] WajfhobJUQDNYFOA1767-72-68 12:20:2744[facility] QsuxlzjXKMEPSHEU8685-77-37 12:20:2767.9[facility] RsivnwuUSTDVVPYN3378-77-79 12:20:27-1[facility] CBTLSDUIQ2193-11-82 12:20:2725[facility] VmpllpzWXHTKSEJU6499-28-00 12:20:277.36 [facility] JixiyopDEPEYXFKFI9566-67-73 12:20:26 Test Item Value Reference Range Interpretation Comments aPTT (test code = aPTT) 29.7 s 22.9-35.8 N [facility]ByvqhjnCLKXKYANFH0698-29-04 12:20:26 Test Item Value Reference Range Interpretation Comments PROTIME (test code = PROTIME) 13.8 s 12.0-14.7 N [facility] CampusTiiyethHDGAIEMTZP4415-56-12 12:20:261.07[facility]im[facility] HermannHEMATOLOGY 2013-08-17 12:20:26 Test Item Value Reference Range Interpretation Comments aPTT (test code = aPTT) 29.7 s 22.9-35.8 N [facility] CampusDqxdflrFZOPBIIWWT4154-80-71 12:20:26 Test Item Value Reference Range Interpretation Comments PROTIME (test code = PROTIME) 13.8 s 12.0-14.7 N [facility] CampusZbtxtfxXNEPNUNIMC3024-74-97 12:20:261.07Metxrimd HermannHEMATOLOGY 2013-08-17 12:20:22Slight *ABN*(08/17/2013 06:20:22)[facility] 2013-08-17 12:20:22Slight (08/17/2013 06:20:22)[facility] 2013-08-17 12:20:22Slight *ABN*(08/17/2013 06:20:22)[facility] 12:20:22Slight *ABN*(08/17/2013 06:20:22)[facility]17 12:20:221+ *ABN*(08/17/2013 06:20:22)[facility] 2013-08-17 12:20:220.1[facility]VpcnclvENBDJDABWH9914-55-56 12:20:22Slight (08/17/2013 06:20:22)[facility]fieldVwzkdwrBAEGDTTMGY1401-31-72 12:20:22Slight *ABN*(08/17/2013 06:20:22)[facility]fieldLczgwpcUAGMYPYVUJ0611-36-64 12:20:22Slight (08/17/2013 06:20:22)[facility]fieldZhgjenuMQAZOZZODY0368-08-66 12:20:22Slight *ABN*(08/17/2013 06:20:22)[facility]fieldFbylqqrLEGAWLBUKF0840-51-14 12:20:22Slight *ABN*(08/17/2013 06:20:22)[facility]fieldVdkrwmrERJHVMNDMY0379-18-20 12:20:221+ *ABN*(08/17/2013 06:20:22)[facility]vmlvhhEUGLEEVVQO4238-89-54 12:20:220.1 [facility]fieldJyqrjzzCSRUYGJMHS2646-39-18 12:20:22Slight (08/17/2013 06:20:22) [facility]fieldEgvqzomYHXNOFVPCB0935-31-46 06:15:58 Test Item Value Reference Range Interpretation Comments UA pH (test code = UA pH) 6.0 1 5.0-8.0 N [facility]fieldJwiwzsyIORYOAHYYA6013-46-86 06:15:58 Test Item Value Reference Range Interpretation Comments UA Spec Grav (test code = UA Spec 1.015 1 N Grav) [facility]ZgndpoiXJSBDULSUN0719-32-96 06:15:58Clear (08/17/2013 00:15:58)[facility] HospitalAwhhnprWMBHNWYSCK7078-09-61 06:15:58Yellow *NA*(08/17/2013 00:15:58)[facility] YfsbqwdOEDNHZSZZI5496-35-30 06:15:58Not Indicated *NA*(08/17/2013 00:15:58) [facility] VxwrwdaDQEMSTBLJN6636-65-61 06:15:58Negative (08/17/2013 00:15:58) [facility] UmbhapkFDHHJSVVPT3729-00-50 06:15:58Negative (08/17/2013 00:15:58) [facility] VuhkipuXTIBYASJEP9694-51-40 06:15:580.2[facility] HermannURINALYSIS 2013-08-17 06:15:58Negative (08/17/2013 00:15:58)[facility]annURINALYSIS 2013-08-17 06:15:58Negative *NA*(08/17/2013 00:15:58)[facility]annURINALYSIS 2013-08-17 06:15:58 Test Item Value Reference Range Interpretation Comments UA pH (test code = UA pH) 6.0 1 5.0-8.0 N [facility] NafxnjlVJUOLLEVFS6457-62-06 06:15:58 Test Item Value Reference Range Interpretation Comments UA Spec Grav (test code = UA Spec 1.015 1 N Grav) [facility] YonmvazZXSTNXVJRB3142-04-79 06:15:58Clear (08/17/2013 00:15:58)[facility] WjyxmqdUWBYSFHVFX7443-82-94 06:15:58Yellow *NA*(08/17/2013 00:15:58)[facility] UijfitaKYSHTMVQOJ6910-65-04 06:15:58Not Indicated *NA*(08/17/2013 00:15:58) [facility] ChcjpzdUHFNENCTDE2567-94-04 06:15:58Negative (08/17/2013 00:15:58) [facility] BbsrcmeSTOWBQKXIS1637-26-13 06:15:58Negative (08/17/2013 00:15:58) [facility] SwbreklFQDALRMQLP1260-92-82 06:15:580.2[facility] HermannURINALYSIS 2013-08-17 06:15:58Negative (08/17/2013 00:15:58)[facility]annURINALYSIS 2013-08-17 06:15:58Negative *NA*(08/17/2013 00:15:58)[facility]annCHEMISTRY 2013-08-17 04:15:001.2[facility] QnollkoSKIEWKYYK0079-92-74 04:15:0037.0[facility] TmplajfFWDGIHJNR3906-93-35 04:15:0022[facility] NqrpqleRAVDDMJVP3431-62-39 04:15:00-4[facility] VtrqxbsMOJEQWPNA0587-57-18 04:15:0069.0[facility] GPLPQMWDK3563-04-62 04:15:0039[facility] YusrajbHPHOWUBUD8420-79-73 04:15:007.33 [facility] GalzfwvVNMEZVIFV5393-74-86 04:15:0041[facility] HermannCHEMISTRY 2013-08-17 04:15:001.2[facility] XoxaenoBCFYCUAPA1018-29-34 04:15:0037.0[facility] AgrsrwuHSDVSUINN5990-10-96 04:15:0022[facility] OcrfuhgZQDLALMRR8290-33-33 04:15:00-4[facility] NmawamdERNKZPJGQ5420-80-45 04:15:0069.0[facility] YBPVOFXIW0504-13-99 04:15:0039[facility] FlgcmclRIBUESWDM0835-12-29 04:15:007.33 [facility] DbvvgsmZDAQLESCB7099-28-36 04:15:0041[facility] HermannCHEMISTRY 2013-08-17 02:00:521.6[facility] QvlumguFPZBHLYTK0898-03-58 02:00:521.6[facility] UgmqpbgTEGMXXFXI9625-85-54 02:00:36633Dznzgtji NhznmrwAQPUDLJWP6152-66-72 02:00:000.3[facility] NrmqxpyQCNJYBHUA1114-07-03 02:00:0040[facility] QFMCAPUJL5243-19-48 02:00:0022[facility] GfsqpwsSCBHOAMBD4424-59-09 02:00:009.8 [facility] VhmgldbMDVSEEUCB6105-78-46 02:00:004.7[facility] HermannCHEMISTRY 2013-08-17 02:00:005.1[facility] ZutfucqBWFMAWVKA0696-46-76 02:00:000.9[facility] FmizxxeDSVKOSKAJ5320-09-37 02:00:0014[facility] MudqtyeBAUIVOKQEM1151-74-56 02:00:00Normal (08/16/2013 20:00:00)[facility] KjfzlvpPAWODZOMIG0883-51-80 02:00:001.0[facility] SotbpuwIXMWVVISL8827-38-94 02:00:75446Irarhnvh Dusty WGZNUFJBL8519-75-86 02:00:000.3[facility] DdzoowhFMZOJBCAG0467-60-47 02:00:0040 [facility] XftkmudFORRDOECQ5106-63-81 02:00:0022[facility] HermannCHEMISTRY 2013-08-17 02:00:009.8[facility] DwjocgoUCNJAIYVF3935-96-10 02:00:004.7[facility] IzskmnhTHRISBTOC3538-86-73 02:00:005.1[facility] LpccpqaLJOIWQNEY1912-54-51 02:00:000.9[facility] JycahkvAEYFHIQZH3401-96-64 02:00:0014[facility] ENLNJYXXQH2761-36-38 02:00:00Normal (08/16/2013 20:00:00)[facility] RSZFNKJJCO2179-53-55 02:00:001.0[facility] FoleoqbOFEIMBMLZ6894-28-73 10:13:0015.2 [facility] GyromanDIKVRSIDJ4412-00-98 10:13:0071[facility] HermannCHEMISTRY 2013-06-01 10:13:004.2[facility] OciueizBCOQYWQSS4163-97-43 10:13:02003Kbdkskqb LuwpgofPIQFKMFSR9114-25-02 10:13:001.4[facility] LazxjsdELTPZONYQ7011-95-52 10:13:88210Nislcmqa FespmfwGSTDNQCSU2987-14-40 10:13:0024[facility] MHPFDRODG1115-24-66 10:13:008.4[facility] QqhqmddWOZIGQJPH3321-71-93 10:13:008 [facility] NbeucxaQUNMLDFTZ9306-72-36 10:13:0078[facility] HermannHEMATOLOGY 2013-06-01 10:13:008.5[facility] ZhftrvrUURODUCNXX7815-63-95 10:13:11583Ixryclmd MykozaeEXVTLMFZXS2733-39-36 10:13:0014.8[facility] IswvjklCTMKPKRKQV5447-50-71 10:13:003.16[facility] JkhhedpOKOHOFAABU3486-81-93 10:13:0089.4[facility] DJGZLUYTEM3236-08-65 10:13:009.3[facility] NjhwweoBFKYTDXUGL1891-39-67 10:13:00 28.2[facility] AmnqxaoWNOKCLCTRF5856-85-80 10:13:0010.1[facility]annHEMATOLOGY 2013-06-01 10:13:0033.1[facility] PihcoblETIILZERKS7776-00-10 10:13:00 Test Item Value Reference Range Interpretation Comments MCH (test code = MCH) 29.6 pg 27.0-31.0 N [facility] UgcmtsfPPQAHOCCAJ5330-10-57 10:13:000.2[facility]annHEMATOLOGY 2013-06-01 10:13:001.2[facility] ZrxerpuOAYSJAYEPX2582-75-55 10:13:001.7[facility] PsuilbyVBKQGPMDCB7719-13-66 10:13:000.1[facility] StwpvtsKMNGCQMPQI2987-09-38 10:13:007.0[facility] QuqmcnvNNAQLUQHBA3849-43-99 10:13:000.6[facility] PTICVXOBWB7152-67-15 10:13:001.6[facility] BtlpbpaUKUANSGILY8176-03-57 10:13:00 16.6[facility] BmsxfhxRIQQBYFJLH7776-43-17 10:13:0011.9[facility]annHEMATOLOGY 2013-06-01 10:13:0069.3[facility] QkdakjeLOVOGUHEO5461-27-91 10:13:0015.2[facility] PnnfcbjRLEOVHEPS6075-98-34 10:13:0071[facility] MsjakshOLHOXOOLA0243-50-48 10:13:004.2[facility] PoswgxnQVIGRLQGC7298-94-92 10:13:28646Bimjdcdv Dusty EZVAUNJET9912-35-93 10:13:001.4[facility] DidfyjjSICZGSXNI1220-82-21 10:13:92891 [facility] KlkekeeUEBGDNIGK1980-99-88 10:13:0024[facility]annCHEMISTRY 2013-06-01 10:13:008.4[facility] NlavishTBNRWYFBW9762-22-78 10:13:008[facility] TypjrmzKWQBCTUNY3283-16-82 10:13:0078[facility] IcerxvwNZLTOXNOGV8989-37-46 10:13:008.5[facility] DwatwxrWDXEFFOPKY8711-52-57 10:13:32297Czoqsaln [facility] PBYFXSMCSW0826-84-02 10:13:0014.8[facility] NjsshoaJOODVNXEHR7336-83-81 10:13:00 3.16[facility] AgfgyaxWRVGKJKIHP9502-87-87 10:13:0089.4[facility]annHEMATOLOGY 2013-06-01 10:13:009.3[facility] MssihcpZEORZIQOHE6214-57-78 10:13:0028.2[facility] RhcwyuaHJJUAWWXNW3466-74-76 10:13:0010.1[facility] NrknulcWCSJAQQTKQ3643-83-52 10:13:0033.1[facility] DckrhxaRGSKJUIQFY9737-55-65 10:13:00 Test Item Value Reference Range Interpretation Comments MCH (test code = MCH) 29.6 pg 27.0-31.0 N [facility] VzfsjccVTXBELWBNG1847-47-57 10:13:000.2[facility]annHEMATOLOGY 2013-06-01 10:13:001.2[facility] UhyogskYAXEYFRDBM0074-62-29 10:13:001.7[facility] EywjlbqVYTACVMUEO9034-38-73 10:13:000.1[facility] UhyrkcrGMGXUICXOU4917-10-84 10:13:007.0[facility] TeabuflUGMQVPRHRN9362-60-61 10:13:000.6[facility] VWXSGNECCZ3633-33-50 10:13:001.6[facility] UraustlONUYIMAUXR0115-00-42 10:13:00 16.6[facility] UkgzkbbZRLBTJLKXX7928-13-34 10:13:0011.9[facility]annHEMATOLOGY 2013-06-01 10:13:0069.3[facility] EhhanybQWEFLMPINP5548-91-73 10:28:271.29Metxrimd QiabyrnJBGEKBKPCS1637-54-49 10:28:27 Test Item Value Reference Range Interpretation Comments PT (test code = PT) 16.3 s 12.0-14.7 H [facility] XbppxzsENCMUHWJTL7020-43-90 10:28:271.29[facility]annHEMATOLOGY 2013-05-31 10:28:27 Test Item Value Reference Range Interpretation Comments PT (test code = PT) 16.3 s 12.0-14.7 H [facility]WofxapeTXQIINHNRO4075-30-56 03:34:42Negative mg/dL (05/30/2013 22:34:42)[facility] CampusIgyxtxoNRZMSFNNVE9485-44-81 03:34:42Negative mg/dL (05/30/2013 22:34:42)[facility] CampusFycmgnxDVAZGCLIBL0523-97-54 03:34:42Negative mg/dL *NA*(05/30/2013 22:34:42)[facility] CampusNgdlmkfGZPTYTCPUX8355-38-98 03:34:42Clear (05/30/2013 22:34:42)[facility] CampusIslzlnqSAYZAFLCKD2214-17-44 03:34:42 Test Item Value Reference Range Interpretation Comments UA Spec Grav (test code = UA Spec 1.010 1 N Grav) [facility] CampusCzavtzfCPLGCLUZQV6348-95-15 03:34:42 Test Item Value Reference Range Interpretation Comments UA pH (test code = UA pH) 6.0 1 5.0-8.0 N [facility] CampusNykssvwVFVPDRXSHP6050-30-52 03:34:420.2[facility] HermannURINALYSIS 2013-05-31 03:34:42Yellow *NA*(05/30/2013 22:34:42)[facility]UR[facility]IS 2013-05-31 03:34:42Negative (05/30/2013 22:34:42)[facility] 2013-05-31 03:34:42Negative (05/30/2013 22:34:42)[facility]annUR[facility]YS[facility] 2013-05-31 03:34:42Negative *NA*(05/30/2013 22:34:42)[facility]annURINALYSIS 2013-05-31 03:34:42Negative (05/30/2013 22:34:42)[facility]annURINALYSIS 2013-05-31 03:34:42None Seen (05/30/2013 22:34:42)[facility]annUR[facility]YSIS 2013-05-31 03:34:42Rare /LPF (05/30/2013 22:34:42)[facility]annURINALYSIS 2013-05-31 03:34:420-2 /HPF (05/30/2013 22:34:42)[facility]annUR[facility]ALYSIS 2013-05-31 03:34:42Performed (05/30/2013 22:34:42)[facility]annURINALYSIS 2013-05-31 03:34:42Rare /LPF (05/30/2013 22:34:42)[facility]annURINALYSIS 2013-05-31 03:34:42Negative mg/dL (05/30/2013 22:34:42)[facility] OCKHPZPLOB0909-43-67 03:34:42Negative mg/dL (05/30/2013 22:34:42)[facility] CampusGrrthnqSZYBAQIEZT3619-32-81 03:34:42Negative mg/dL *NA*(05/30/2013 22:34:42) [facility] HsegyqfFTRVJNMTJQ2252-06-18 03:34:42Clear (05/30/2013 22:34:42)[facility] NoetdahHEPMQBRUQP0755-69-68 03:34:42 Test Item Value Reference Range Interpretation Comments UA Spec Grav (test code = UA Spec 1.010 1 N Grav) [facility] EyedkuqIJEHIBPHNI3711-75-54 03:34:42 Test Item Value Reference Range Interpretation Comments UA pH (test code = UA pH) 6.0 1 5.0-8.0 N [facility] JvezhfoKZHQJUAVLW7762-33-63 03:34:420.2[facility]annURINALYSIS 2013-05-31 03:34:42Yellow *NA*(05/30/2013 22:34:42)[facility]annURINALYSIS 2013-05-31 03:34:42Negative (05/30/2013 22:34:42)[facility]annURINALYSIS 2013-05-31 03:34:42Negative (05/30/2013 22:34:42)[facility]annURINALYSIS 2013-05-31 03:34:42Negative *NA*(05/30/2013 22:34:42)[facility]annURINALYSIS 2013-05-31 03:34:42Negative (05/30/2013 22:34:42)[facility]annURINALYSIS 2013-05-31 03:34:42None Seen (05/30/2013 22:34:42)[facility]annURINALYSIS 2013-05-31 03:34:42Rare /LPF (05/30/2013 22:34:42)[facility]annURINALYSIS 2013-05-31 03:34:420-2 /HPF (05/30/2013 22:34:42)[facility]annURINALYSIS 2013-05-31 03:34:42Performed (05/30/2013 22:34:42)[facility]annURINALYSIS 2013-05-31 03:34:42Rare /LPF (05/30/2013 22:34:42)[facility]annCHEMISTRY 2013-05-31 03:05:1531.9[facility] TafafpbMJCIGMMMD0443-71-27 03:05:157.36[facility] QuxxyefLPULPXBMN0462-35-21 03:05:1524[facility] KfaquewGMVKOWOXU9808-83-67 03:05:1521[facility] FyfunipFAWXLIBLT6435-81-90 03:05:1543[facility] QPJDCUIKQ5824-27-10 03:05:15-1[facility] HcycscuFIZFWKGDI2863-42-51 03:05:1537.0 [facility] GqlradvTPZUUIQQM9263-93-68 03:05:1531.9[facility]annCHEMISTRY 2013-05-31 03:05:157.36[facility] PveiwwaJUESSWRWD5875-39-25 03:05:1524[facility] JkzlrlxOXMDPRHFL8180-48-22 03:05:1521[facility] OxvdfyxHOAAFMGCI0237-72-55 03:05:1543[facility] HcrrxeeEJJEFHZNZ7006-47-99 03:05:15-1[facility] MOZWKPULT2114-66-95 03:05:1537.0[facility] EjpvzchDINGNCZLH7290-26-01 00:40:051.4 [facility] HzadbieUXMVEODDX0547-20-43 00:40:0510.8[facility]annCHEMISTRY 2013-05-31 00:40:050.3[facility] NljngjeHEBISACWQ5112-78-06 00:40:0539[facility] FfvkwwjKCFSGRGDH8936-62-40 00:40:98556Qafzljht JgxmxipXMNACZMKU7108-27-17 00:40:052.7[facility] NkzvyryCKWHZPKCS1949-83-46 00:40:0538[facility] SMDVMPLBT8839-20-80 00:40:0595[facility] SxphuwpHQSZQWKWI7377-74-81 00:40:68954 [facility] LfbpcvpSIFBDGRAM0473-41-88 00:40:0511[facility]annCHEMISTRY 2013-05-31 00:40:051.1[facility] DczvlbmZBLKEEJHH2432-37-80 00:40:059.0[facility] KzbwzqiIOMGOBXVV3756-22-50 00:40:053.5[facility] IturcxmPWCALBTMP2283-55-71 00:40:81325Ubuaykjn JmvrhwuSWGJPQIVB0579-15-35 00:40:0523[facility] HSIZWOZEQ4548-70-01 00:40:0599[facility] FemagrvBHRAUXOZG6221-18-11 00:40:050.3 [facility] AvlgurvAIHXWUBIO5256-15-77 00:40:058.1[facility] HermannCHEMISTRY 2013-05-31 00:40:0510[facility] AuuxyroSUQJQPOJQ4164-84-58 00:40:0516.5[facility] ByzrauxKWKDCPUECT1833-99-56 00:40:0512.6[facility] AhekhrtOXRMIFKLJS0889-08-04 00:40:0514.2[facility] BcixbmrPQKDPYXLWD9673-24-86 00:40:21648Bxfiiiky [facility] VZQQEOGYXK4960-69-48 00:40:05 Test Item Value Reference Range Interpretation Comments MCH (test code = MCH) 29.2 pg 27.0-31.0 N [facility] GelzkwhKLUFQIQXBD6381-27-97 00:40:0533.1[facility] HermannHEMATOLOGY 2013-05-31 00:40:058.5[facility] RqwpvheQTLXMCWOER8071-75-04 00:40:053.71[facility] HonsnivVMXEQCLLMR2826-23-40 00:40:0510.8[facility] YwfupxzACYFPFLIED9402-86-07 00:40:0532.7[facility] JgiykccZOBZJWTNVB2174-53-97 00:40:0588.2[facility] MWBNNKEJVX7330-84-19 00:40:059.7[facility] DluxkxeZOZHKWYRBJ6762-08-06 00:40:051.7 [facility] XnakykzOWHTGDLYHQ0090-40-68 00:40:0513.4[facility] HermannHEMATOLOGY 2013-05-31 00:40:058.5[facility] KonfxqyGZJWUSNQNY2475-35-82 00:40:050.3[facility] QpxojyfATVBYEAMPG2218-50-21 00:40:050.7[facility] LcgngblIXMRVNQGXZ2433-35-42 00:40:051.1[facility] MnohvxgOMGZHEHUMV7869-00-42 00:40:05Normal (05/30/2013 19:40:05)[facility] VbefsbcHFLBGCEZYG1668-51-97 00:40:0577.1[facility] HRKCIEWGDH6810-78-88 00:40:050.0[facility] XpdgjhqSZYTJJHWUR5674-54-74 00:40:05 Slight (05/30/2013 19:40:05)[facility] YkbaxsrTUZWRZIOCF5081-68-44 00:40:05Slight *ABN*(05/30/2013 19:40:05)[facility] ZsvlpxaMUMPIQXSLW7286-81-35 00:40:051+ *ABN*(05/30/2013 19:40:05)[facility] VvhaedrJICKNSFACO8469-86-39 00:40:050.1 [facility] HadblupPNCJYDYUI7127-70-01 00:40:051.4[facility] HermannCHEMISTRY 2013-05-31 00:40:0510.8[facility] OqmpujeQGGLCBHQA4548-25-89 00:40:050.3[facility] BgdzashIYJTXDDZH2217-45-96 00:40:0539[facility] BjqvxeoTZOADSKBM2261-56-47 00:40:70964Sgfibzkd VqbtrlsEORBIHWEJ2859-81-13 00:40:052.7[facility] SXXHDJDLR8755-21-70 00:40:0538[facility] PuojpglMKZSQJPPS6711-74-35 00:40:0595 [facility] AwdtzjfGBLWSETOW0306-24-11 00:40:88476Dbgkojmm HermannCHEMISTRY 2013-05-31 00:40:0511[facility] HwjhheiEMMIJTBXB3303-16-14 00:40:051.1[facility] WnzjdgdLOOUQDDGB0356-54-78 00:40:059.0[facility] IvknacoNBRFIUPZU7383-29-11 00:40:053.5[facility] MnrwracWICVRSVIO9804-72-03 00:40:57224Fludyeka [facility] FKVAHFWUV3992-16-44 00:40:0523[facility] XkiwfxhCSFSXROPX9932-20-46 00:40:0599 [facility] EesuszsOKIHMPCSO2458-23-14 00:40:050.3[facility] HermannCHEMISTRY 2013-05-31 00:40:058.1[facility] JkpijqnCSIADOHAF1467-74-94 00:40:0510[facility] TqqldwrOBFXNJXFQ2564-28-98 00:40:0516.5[facility] CdubnmtYMJLUCLPSD8103-55-97 00:40:0512.6[facility] HmjlpqzTLGIJCUCSC9273-22-35 00:40:0514.2[facility] CDGMNWYQQM0238-37-21 00:40:49074Giiwaidy FxuwkdwPEAZAEKTOB5131-54-74 00:40:05 Test Item Value Reference Range Interpretation Comments MCH (test code = MCH) 29.2 pg 27.0-31.0 N [facility] OhqukumXNRUQIOGCH2085-42-82 00:40:0533.1[facility] HermannHEMATOLOGY 2013-05-31 00:40:058.5[facility] EqokghjVDLDQGBJSX0197-92-39 00:40:053.71[facility] XhevksjCKRUMQIWIR9733-44-24 00:40:0510.8[facility] GdryjsxUDPKPSCDWR5936-97-03 00:40:0532.7[facility] RsvepscAGVNUPLIOR3743-38-64 00:40:0588.2[facility] RCFWMOAITC0367-28-91 00:40:059.7[facility] SkyxstfESECCZTRXT1116-88-19 00:40:051.7 [facility] NddyowpPDLDLCUHXJ3828-07-27 00:40:0513.4[facility] HermannHEMATOLOGY 2013-05-31 00:40:058.5[facility] WlxvsqnXXRKVGDRBE7164-81-11 00:40:050.3[facility] CdnvykwOCAZYLMJLC1032-50-44 00:40:050.7[facility] OwlrvxjQRYEWFTPYF3267-27-61 00:40:051.1[facility] VxgneaiTPPYPLDEHL9625-06-86 00:40:05Normal (05/30/2013 19:40:05)[facility] KcblvcnCAWWOKDQLD6340-99-12 00:40:0577.1[facility] WUSWNHHZDP3130-09-71 00:40:050.0[facility] DawolldBAPEHSWYMO4673-79-75 00:40:05 Slight (05/30/2013 19:40:05)[facility] RxizezkFRTUOGMQPO7934-81-65 00:40:05Slight *ABN*(05/30/2013 19:40:05)[facility] VpdsufvGMYIVUUXNT3277-27-35 00:40:051+ *ABN*(05/30/2013 19:40:05)[facility] PphbbevHRWNXRUNDW3366-11-57 00:40:050.1 [facility] SjdypubEGGQHAPKU2061-00-45 00:40:0077[facility] HermannCHEMISTRY 2013-05-31 00:40:37298Wxbjiklf YzcjfpvSZTPJWBGD9683-08-69 00:40:0077[facility] TracsrwGAQCTIQBD6418-92-68 00:40:35106Ktudxhxp EgqwzsxSLBENYMQS4886-73-91 00:00:572.7[facility] JaulncqSBXQCSTMX2423-35-99 00:00:5710.8[facility] JQNXLATSL8424-13-87 00:00:5742[facility] BuyazulEAPLMADWY2434-02-82 00:00:570.3 [facility] QpyreboJAMEQYAJH4260-11-00 00:00:570.1[facility] HermannCHEMISTRY 2013-05-31 00:00:570.4[facility] NwgxxlgHGBMIEBFF5870-87-45 00:00:27279Fikbhudv QphmlgzVTVEPVJRG9264-39-24 00:00:5742[facility] GhossfiOHGTAQANH3540-42-77 00:00:570.3[facility] XjzeljdQFSPPITYF8463-67-80 00:00:578.1[facility] TJWTGAFTD9618-67-52 00:00:572.7[facility] BbuammaTMNCYETZA1461-45-38 00:00:5710.8 [facility] DcurqogOHUTPSHFJ2397-54-46 00:00:5742[facility] HermannCHEMISTRY 2013-05-31 00:00:570.3[facility] MkowodyTVCUMZBOP4836-52-30 00:00:570.1[facility] YqahnptCCIMEEORA2697-05-87 00:00:570.4[facility] PwpbwywSBXCQWOVS4489-34-25 00:00:74063Mhjjrnoz PzpqsrrBSSMRVYNS8196-65-73 00:00:5742[facility] CRNIZKFZT4037-21-79 00:00:570.3[facility] VycghyeKHDHMOCTQ8982-77-26 00:00:578.1 [facility] EdxsgfkQLEOANWRH9919-37-17 05:26:0012.7[facility] HermannCHEMISTRY 2013-05-19 05:26:001.4[facility] VferybwRPVJUXFFY0714-22-84 05:26:004.7[facility] UavyzrzRFODOFDFK4061-14-11 05:26:0023[facility] QpxbifhGMKEEZXCI4452-32-76 05:26:0028[facility] BcayvqfJQAJFTTHG6589-45-93 05:26:64511Vtetkomb [facility] WRFWLMPDJ2791-65-81 05:26:10839Bcphwhme NoicasoYSCPSNCWR8371-42-23 05:26:0085 [facility] JwfdifwFAJJQVBHA9924-87-51 05:26:009.3[facility] HermannCHEMISTRY 2013-05-19 05:26:0071[facility] NxbfazaGXQQEAZXYF0333-19-78 05:26:0033.4[facility] UnmgclqJLRUYSSBNN3609-81-53 05:26:0016.2[facility] MmcvwgpSIHILQXNOB5655-75-95 05:26:32510Uadolxrv DqxowgeNKWUCRDLFP7870-98-61 05:26:008.8[facility] VVODMBQOPE7771-39-27 05:26:00 Test Item Value Reference Range Interpretation Comments MCH (test code = MCH) 29.9 pg 27.0-31.0 N [facility] DcqhiyzUFIFVMGQSH7634-99-74 05:26:007.4[facility] HermannHEMATOLOGY 2013-05-19 05:26:007.4[facility] LtkocluGHHYNHUMIH6389-64-77 05:26:0089.6[facility] IxfsuwaJVKBBRTYWQ0022-19-07 05:26:002.46[facility] InrzuohJPMJYXBXGQ1026-06-75 05:26:0022.0[facility] LkpcfriXCJWHUONAC7177-27-81 05:26:000.3[facility] YJJPYJKPZN7269-65-43 05:26:001.0[facility] TgxljbhSCILFAGGWL8088-94-62 05:26:000.1 [facility] JboaojcHIHWQWQDPY7692-23-56 05:26:0047.4[facility] HermannHEMATOLOGY 2013-05-19 05:26:0032.9[facility] ZrannwlMWKPNRJVCO6598-51-81 05:26:004.5[facility] FmglzckNICBBSVJXF0937-36-38 05:26:0014.0[facility] NgxkegeVMNOYSUXLM5268-22-93 05:26:003.5[facility] QrugsqfCKEBJZMSLG3279-29-53 05:26:001.2[facility] NALXWZFJCY1023-29-85 05:26:002.4[facility] DajpqssJIGSJTIKVT8219-00-51 05:26:00 Negative *NA*(05/19/2013 00:26:00)[facility] ToxazkxLFKUUJEYD9917-29-38 05:26:00 12.7[facility] ToblobdSUSBLZSQY1500-19-37 05:26:001.4[facility] HermannCHEMISTRY 2013-05-19 05:26:004.7[facility] XvaoibbJGWXWEVPW4354-22-12 05:26:0023[facility] IxzghtjXCKLNTDIY7874-87-07 05:26:0028[facility] GnrkgdyBZPBPGSEU3398-50-46 05:26:02727Gdffagsd AfwtmuqHPWLKVFLT9948-00-05 05:26:51743Tqglyqpu [facility] SCVRQPDNR7851-83-21 05:26:0085[facility] HgpdghzEZNTAVQYO2402-36-95 05:26:009.3 [facility] LouyualBXAAFISWM0509-02-89 05:26:0071[facility] HermannHEMATOLOGY 2013-05-19 05:26:0033.4[facility] TqsrwarUKKANTWDCC0810-83-31 05:26:0016.2[facility] KzkibypQGWQRTTEEL8068-55-95 05:26:82580Rzrloaxw OxsscfvIMPPJUPQMW8640-75-67 05:26:008.8[facility] TtarqhoTVJAVKNVZN1750-70-26 05:26:00 Test Item Value Reference Range Interpretation Comments MCH (test code = MCH) 29.9 pg 27.0-31.0 N [facility] GyylwabKYHWBCVMGR2959-55-60 05:26:007.4[facility] HermannHEMATOLOGY 2013-05-19 05:26:007.4[facility] AbkljnhROKILYKVFG0692-07-62 05:26:0089.6[facility] LfyclirONDIDPQUCN8613-59-00 05:26:002.46[facility] IzegrkmYCUMYYCKMJ6909-88-71 05:26:0022.0[facility] YaapnpfWCMOBSUTWN9560-60-69 05:26:000.3[facility] WXRSPCBRHQ9018-53-92 05:26:001.0[facility] HvlxpqpKFOMWBDHBB4816-75-39 05:26:000.1 [facility] PfwrkvtGVLYDAMHZQ4892-48-72 05:26:0047.4[facility] HermannHEMATOLOGY 2013-05-19 05:26:0032.9[facility] SagjdhwITTQOKWRFA1663-53-99 05:26:004.5[facility] EdtdrqkAFJFUBDYYG8797-83-28 05:26:0014.0[facility] NxxjxtzEZZPZYNGJA1844-53-71 05:26:003.5[facility] QfsniknCPOUUZLHKA7590-75-31 05:26:001.2[facility] TQBRNOGDHR3816-39-02 05:26:002.4[facility] RbvloeoRQKFJAMGZT0562-28-54 05:26:00 Negative *NA*(05/19/2013 00:26:00)[facility] PbtndkrCLOQRNYSYD4784-41-77 23:45:00 101.0[facility] PjntucqWPEWXPKAQG9127-00-04 23:45:41614.0[facility] CXVZUSOVZX4667-15-54 09:01:1918.4[facility] WbqmbnrBNGWKUISMM9459-60-06 09:01:19 3.02[facility] EfrbwktHQIRVXCBEN7919-74-24 09:01:1989.6[facility] HermannHEMATOLOGY 2013-05-11 09:01:1932.3[facility] BtmfbesFKGMKHTZVZ5255-26-26 09:01:19 Test Item Value Reference Range Interpretation Comments MCH (test code = MCH) 28.9 pg 27.0-31.0 N [facility] HyxlsbdEQWXRTTLTT7336-58-64 09:01:1927.1[facility] HermannHEMATOLOGY 2013-05-11 09:01:198.7[facility] KapbweeUUIJDKTHWN5284-96-96 09:01:198.4[facility] DixilwoTEWCWGNJEZ1048-23-83 09:01:84585Tripcgdo IbezvcyCYUHQSYGVT1982-63-07 09:01:1915.3[facility] PrudgzmCPVWSCAVSJ3344-27-05 09:01:190.3[facility] EITXLIQKRU9712-47-13 09:01:194.4[facility] MncbzwjFVVOGPAEMR3181-92-72 09:01:193.8 [facility] DamyzyxDZGEBLODGE9171-09-31 09:01:1912.7[facility] HermannHEMATOLOGY 2013-05-11 09:01:190.1[facility] JdjasfjVLKHDCQDFF4315-50-29 09:01:190.8[facility] KwwajerRKDHUDBFKD9460-38-33 09:01:191.0[facility] TirbpssOSSKJUFVWX3778-84-49 09:01:1969.3[facility] OytnilbUZPSZSBMQN3077-47-65 09:01:195.3[facility] CXBMKORPWP1827-37-17 09:01:1920.7[facility] DxzuucqWNPSTYVUFQ4314-32-32 09:01:19 18.4[facility] RabizhbOQTRXGPEWA6134-81-44 09:01:193.02[facility] HermannHEMATOLOGY 2013-05-11 09:01:1989.6[facility] UmsizxaQJMIFNKCLC2780-12-21 09:01:1932.3[facility] JeigiauQKHUBVFSYJ1554-33-85 09:01:19 Test Item Value Reference Range Interpretation Comments MCH (test code = MCH) 28.9 pg 27.0-31.0 N [facility] PljnagaUNJAJRGOUZ6317-44-20 09:01:1927.1[facility] HermannHEMATOLOGY 2013-05-11 09:01:198.7[facility] AkmztvlWIIWZUZIFY7254-94-56 09:01:198.4[facility] TfrdmygITSPAGEQPA8141-37-92 09:01:12389Tafdjvfy TdtluvzXTHIGAWKKN0670-80-77 09:01:1915.3[facility] GacniqzXEIHPATXGH1978-19-46 09:01:190.3[facility] QGCVJAHVZH0827-83-87 09:01:194.4[facility] UtyrcfuINUHHMNMKX2043-54-41 09:01:193.8 [facility] AzwjczyPQBMTRQZJJ4128-11-88 09:01:1912.7[facility] HermannHEMATOLOGY 2013-05-11 09:01:190.1[facility] EovlupnMTMCNVOLKV0999-33-39 09:01:190.8[facility] QptxheoYONODOWZKB8028-67-55 09:01:191.0[facility] TdkupoyBWXIQMPMWM2592-27-70 09:01:1969.3[facility] KqvpswwNSKJOCRAXC8755-66-54 09:01:195.3[facility] WMKMLOFVSP9293-02-18 09:01:1920.7[facility] KmfpcqyLCASAXBVP8616-35-24 09:50:17 19.6[facility] VtwiknkBQUMYDBHO1853-15-81 09:50:1786[facility] HermannCHEMISTRY 2013-05-10 09:50:179.2[facility] MdfintjHANGRYEIX8985-90-73 09:50:1781[facility] FabjssmVRGIEAHVB8296-96-15 09:50:1718[facility] TjeisykWCAILUPED8282-84-62 09:50:171.2[facility] KyvzeanFFTMVQLJM6049-58-88 09:50:1725[facility] HTRJCGYZN0300-63-34 09:50:1795[facility] JekstcvKRYUSENXF1321-33-13 09:50:175.6 [facility] NrnmrqkLJNCTXLXU2549-62-24 09:50:01713Vvqihpug HermannCHEMISTRY 2013-05-10 09:50:1719.6[facility] NrjvtsgOJKKMWJCH8248-83-89 09:50:1786[facility] FlrluvkETOBFCYJP6044-33-88 09:50:179.emorial WjvohbyCXWBNBDJZ8390-01-72 09:50:1781[facility] DahghyxJVPPICRWO3723-26-44 09:50:1718[facility] CPQRONATU4576-66-80 09:50:171.2[facility] MxpkxizIAZKKBJQF1231-00-93 09:50:1725 [facility] HslyuvvTSJDWBFXZ8108-88-35 09:50:1795[facility]annCHEMISTRY 2013-05-10 09:50:175.6[facility] DlfntprQPINXHXBJ0905-91-41 09:50:53070Ezsqgden LizcojyAMTOGOQMLX0766-28-35 09:50:158.1[facility] HspkenfAUXSISPTTU5637-14-85 09:50:19626Yxkvffms WydeugqNDEQOZXZGV0864-14-85 09:50:1532.0[facility] MXQCQLPIVB8769-80-54 09:50:1515.7[facility] BfjsebwTFACFUELLG8884-95-51 09:50:15 22.4[facility] NsnlnekVPZNKFUEPZ8493-40-00 09:50:15 Test Item Value Reference Range Interpretation Comments MCH (test code = MCH) 28.9 pg 27.0-31.0 N [facility] OixtzuhMMBTMHVOVW6027-39-00 09:50:1590.3[facility] HermannHEMATOLOGY 2013-05-10 09:50:159.0[facility] UgneainCYNXYENKKW4295-69-19 09:50:153.11[facility] ZycfqkgAIRCSDZCUD6865-30-41 09:50:1528.1[facility] TpirbtxAJGILLBLRT2488-65-48 09:50:1511.0[facility] JxpxjpbXPAKMZCSVQ0096-48-02 09:50:150.9[facility] ZMIQYUESDZ3288-45-55 09:50:1569.0[facility] HcycxvjTTTASOVBFA5242-33-05 09:50:15 2.0[facility] PpgcogfTWJUZQMRWK9837-36-04 09:50:151.0[facility]annHEMATOLOGY 2013-05-10 09:50:151.0[facility] JixganuYPHKHJWBNW2684-60-77 09:50:158.0[facility] QavpbhfCWZLCQXRJX4302-36-36 09:50:154.0[facility] MjlgrcfDAUESDLAER7848-23-17 09:50:154.0[facility] GepxchmYNCVEDWOEY8202-94-74 09:50:151.8[facility] CIQMASNFLS0905-57-94 09:50:152.7[facility] ZrbmrpiTLNCLPKTIW2641-25-16 09:50:15 15.9[facility] AoqgczeKWKUVCJQBF9285-03-06 09:50:158.1[facility] HermannHEMATOLOGY 2013-05-10 09:50:19260Ylxmnuxg XibrazwCRTTVNOVEN1894-01-11 09:50:1532.0[facility] UvyzmpzJXLUTTQNSN5623-11-13 09:50:1515.7[facility] GkymqlwKWZZRWKAPR5442-77-30 09:50:1522.4[facility] ShqrrhfPMWLWIRTYI6171-20-77 09:50:15 Test Item Value Reference Range Interpretation Comments MCH (test code = MCH) 28.9 pg 27.0-31.0 N [facility] OyldowoTTAXBPGMCN1904-02-96 09:50:1590.3[facility] HermannHEMATOLOGY 2013-05-10 09:50:159.0[facility] DehoyelKZMXBLEFVP9476-33-87 09:50:153.11[facility] AvgygloWZPPVAVYYL3840-22-97 09:50:1528.1[facility] IwsofgkMLBDDTUXES0241-55-85 09:50:1511.0[facility] TmeswfwLOAMDHQNJM7599-51-17 09:50:150.9[facility] ZZNSHJTRPD9825-55-05 09:50:1569.0[facility] CmkcrtoYKVTUJTTEH6051-13-49 09:50:15 2.0[facility] EnbjcynDTFFHXAASN6853-92-31 09:50:151.0[facility] HermannHEMATOLOGY 2013-05-10 09:50:151.0[facility] WxhymalGGRXQCDOAJ0682-21-85 09:50:158.0[facility] JtvajvvNAMSGTYNEF4883-57-91 09:50:154.0[facility] DwiyxdmVIWPQGFYIA8104-71-37 09:50:154.0[facility] JlscmrgBDVWLGLEUD3906-56-24 09:50:151.8[facility] VLJOVQMLIP1443-25-74 09:50:152.7[facility] ZvrpqefTPZPRIXVTV6965-45-44 09:50:15 15.9[facility] IbiiqqwGZZFIVPYA5897-02-79 22:42:00<0.010[facility] UWXXCMHRL4548-65-83 22:42:0043[facility] SlcjobuBIDCAJRRZ0587-90-07 22:42:0061 [facility] FojmogbNHMBDNHRX7809-14-51 22:42:00<0.010[facility]annCHEMISTRY 2013-05-09 22:42:0043[facility] VizegauWIDLHYBFX1820-55-27 22:42:0061[facility] WvqyjyrEINULVPKT6716-95-99 12:39:0296[facility] PtjblouZAGHPLXMN2472-74-36 12:39:0228[facility] WlrpstjNJKWTHCEH6743-08-08 12:39:029.6[facility] WOYXHWQRX9235-94-57 12:39:0212.7[facility] YtksxblEZXXJLIZP3130-47-32 12:39:15634 [facility] JpvkolcOHQTQLRKR1965-35-82 12:39:025.7[facility] HermannCHEMISTRY 2013-05-09 12:39:021.3[facility] VvbplprWFWVSWXAX3226-04-61 12:39:0284[facility] SrwgvbxSDUPXAKWY9819-32-27 12:39:0219[facility] QpmikboPBNSHPLJC7596-55-68 12:39:0278[facility] WujvdliDCTOINCJW2540-31-82 12:39:025.8[facility] MXRSFPUYD2685-45-92 12:39:0296[facility] EjrwjbyVTYVVZSXO5469-76-35 12:39:0228 [facility] WwugijxMFVZYCHGT0966-77-69 12:39:029.6[facility]annCHEMISTRY 2013-05-09 12:39:0212.7[facility] YqazdrmWRDDNROFY0940-10-80 12:39:77712Obcantwx IxjlrfgORMFOZAVN4940-57-90 12:39:025.7[facility] HtvxbyrKOHPNXUPZ9783-64-77 12:39:021.3[facility] VljcwlnEIPUVESYU2662-32-09 12:39:0284[facility] HXRVVHCCL0687-43-02 12:39:0219[facility] QmmhlnzIHIPRHXRX8697-41-81 12:39:0278 [facility] VaiwdhwICDZUEXFY6413-37-49 12:39:025.8[facility]annHEMATOLOGY 2013-05-09 07:18:007.0[facility] ZmndwoeFIAQEYPSDW8131-10-42 07:18:00Slight *ABN*(05/09/2013 02:18:00)[facility] BkjzprbSEUAJFPALI4394-77-43 07:18:003.0 [facility] UxflyycRJQXUBRZPC7542-73-85 07:18:003.0[facility] HermannHEMATOLOGY 2013-05-09 07:18:000.0[facility] NlbgxwrOSHEPBIFNX3461-87-55 07:18:007.0[facility] ZidnibrNLZWJQNWBQ7303-79-21 07:18:00Slight *ABN*(05/09/2013 02:18:00)[facility] BlrvkmhAQFYUJLEOE2149-13-03 07:18:003.0[facility] QjuzqzgWHRWDMJLDL0460-66-28 07:18:003.0[facility] VetqrkyEAJBDHHRGH8351-56-54 07:18:000.0[facility] NHSEJACFZ2175-39-66 05:45:004.0[facility] PibenemMYXTLDMCV1016-85-75 05:45:002.0 [facility] JqspljpTLXZDXMYPX9018-03-07 05:45:00Slight *ABN*(05/07/2013 00:45:00) [facility] BteqmpoSFTODETJPO2707-15-76 05:45:00Slight *ABN*(05/07/2013 00:45:00) [facility] WnatbrdYTSTSXOJJM6737-10-17 05:45:00Slight *ABN*(05/07/2013 00:45:00) [facility] GixbfgiPTHYRFWSFU6622-80-10 05:45:00Slight *ABN*(05/07/2013 00:45:00) [facility] XrvuwydGSWYXESFWN9571-21-34 05:45:00Slight *ABN*(05/07/2013 00:45:00) [facility] WodsxhlNDZCOCNRSE4638-79-93 05:45:00Slight *ABN*(05/07/2013 00:45:00) [facility] MzrxxqvYLIUXWQQPY2302-42-03 05:45:00Slight (05/07/2013 00:45:00) [facility] MdxcwesNLURODBIEP2848-06-57 05:45:00Slight (05/07/2013 00:45:00) [facility] IdneinvKLGXWFWQNG7908-51-68 05:45:001+ *ABN*(05/07/2013 00:45:00) [facility] NkdgcmxTPZARBQAKK4110-41-69 05:45:001+ *ABN*(05/07/2013 00:45:00) [facility] BhfcbjdWYKGLDEYFV6919-86-41 05:45:000.0[facility]annHEMATOLOGY 2013-05-07 05:45:001.0[facility] KkwoeakTBTSMDAPDX4325-34-03 05:45:00Slight *ABN*(05/07/2013 00:45:00)[facility] OeqemmjNBOQBOJWJH0625-06-73 05:45:00Slight *ABN*(05/07/2013 00:45:00)[facility] JkplsqkNNPPRRXCTO4100-62-08 05:45:001.0 [facility] LpjkqleNLSHCMGOWF6253-67-30 05:45:003.0[facility] HermannIMMUNOLOGY 2013-05-07 05:45:00Negative *NA*(05/07/2013 00:45:00)[facility]annCHEMISTRY 2013-05-07 05:45:004.0[facility] FvmgolaJMHMJSUUL9823-12-91 05:45:002.0[facility] GeojqqfLHSSAUPQNU9429-28-06 05:45:00Slight *ABN*(05/07/2013 00:45:00)[facility] XklkqkrZYJYSNJHWS7485-84-74 05:45:00Slight *ABN*(05/07/2013 00:45:00)[facility] UtilekpOBPGCDXLKU1318-05-57 05:45:00Slight *ABN*(05/07/2013 00:45:00)[facility] VcdbigpJZAELOQIVE7219-60-27 05:45:00Slight *ABN*(05/07/2013 00:45:00)[facility] LonzbguXXSSFVEOAZ2895-80-10 05:45:00Slight *ABN*(05/07/2013 00:45:00)[facility] MjknygbKGEEUAJUTL0988-53-50 05:45:00Slight *ABN*(05/07/2013 00:45:00)[facility] RuvrjwxNHWVGYXNRG2602-67-38 05:45:00Slight (05/07/2013 00:45:00)[facility] FPAPTVMUOG7039-40-74 05:45:00Slight (05/07/2013 00:45:00)[facility] Dusty XDFUGOAFUS7496-30-21 05:45:001+ *ABN*(05/07/2013 00:45:00)[facility] FXNCFDRLVD2409-82-91 05:45:001+ *ABN*(05/07/2013 00:45:00)[facility] VKDIRVMPBO1169-06-21 05:45:000.0[facility] BpltkjjSOWGYPIVWA3995-23-13 05:45:001.0 [facility] IomyteaMBHXRSMXUG3306-61-46 05:45:00Slight *ABN*(05/07/2013 00:45:00) [facility] KhzgfphZTFKWCVMSX9589-53-49 05:45:00Slight *ABN*(05/07/2013 00:45:00) [facility] TzsbppjHEOBYQQUHF9564-56-36 05:45:001.0[facility]annHEMATOLOGY 2013-05-07 05:45:003.0[facility] JbvlsecDFWFDRHZDA3479-38-33 05:45:00Negative *NA*(05/07/2013 00:45:00)[facility] WhtlqjwKEYMDBZTT2864-11-92 05:27:004.0[facility] GzjihdzUKRPYHUGU0786-89-60 05:27:002.1[facility] RudtmiyMRTCQAOAI3596-52-92 05:27:0036[facility] GbuqbwdXLQODVHMU1861-36-81 05:27:000.7[facility] GGUAUHDNO9169-71-52 05:27:000.4[facility] HnwhjwaBMHRJMHSG1717-43-08 05:27:007.3 [facility] EqbunrtEMANUCDQK6123-69-75 05:27:27610Dprmirey HermannCHEMISTRY 2013-05-06 05:27:0033[facility] KnwzzzsNFVANMLMO8548-17-09 05:27:001.7[facility] BmvlnqoFYXVDLERR1042-93-87 05:27:005.6[facility] IoyddkoWZKENXNNQ6032-73-48 05:27:000.3[facility] YbhnvdlMRAIWHVOD7962-27-69 05:27:000.3[facility] IGLYEPHERU3402-03-25 05:27:001.0[facility] TtzktgqLUZTZNTBDW9133-58-44 05:27:00 Normal (05/06/2013 00:27:00)[facility] XvatyalVNXTBOGFAJ2828-89-63 05:27:00Slight *ABN*(05/06/2013 00:27:00)[facility] ZzxpqqtWIFHOOLXPN5219-78-36 05:27:000.2 [facility] QufnktaJMBHARZXWE9731-63-18 05:27:001+ *ABN*(05/06/2013 00:27:00) [facility] CkdflviOGBTYDWMAM4276-27-48 05:27:00Slight (05/06/2013 00:27:00) [facility] KhlhpyrNWBLEEHRTJ7768-02-35 05:27:00Slight *ABN*(05/06/2013 00:27:00) [facility] OegrmerRPDGGLKUIB5309-33-52 05:27:00Slight *ABN*(05/06/2013 00:27:00) [facility] LsnsvjqPXEXCSVJR4715-73-06 05:27:004.0[facility] HermannCHEMISTRY 2013-05-06 05:27:002.1[facility] TuzwhlzQRLUNBOFD9409-17-08 05:27:0036[facility] PdnvtuyIVCRGAGFA8078-78-65 05:27:000.7[facility] ZceabusZGSIAQVEG5733-50-80 05:27:000.4[facility] MluqigcUFOURSTEE9569-43-20 05:27:007.3[facility] IVFMQVWOI6303-80-03 05:27:25749Ezunldjh EztfcplOMTWZBYDD7890-64-56 05:27:0033 [facility] KbkkgbrNEJOLSMUW3422-28-85 05:27:001.7[facility] HermannCHEMISTRY 2013-05-06 05:27:005.6[facility] FozxzvoUOTGGQRXK9234-16-85 05:27:000.3[facility] OnoxnpdGIVALRQIH8639-71-80 05:27:000.3[facility] YgjdrdeKYCOJPYMPZ2588-94-49 05:27:001.0[facility] XfigeliGWMMALNZEJ8414-90-02 05:27:00Normal (05/06/2013 00:27:00)[facility] WmijeolLWHWXHQOMG5129-23-29 05:27:00Slight *ABN*(05/06/2013 00:27:00)[facility] JbksztuZUBBKBPZLR4556-11-97 05:27:000.2[facility] XSKPKTSTSF0078-19-96 05:27:001+ *ABN*(05/06/2013 00:27:00)[facility] RRVBHRDZFT3274-33-68 05:27:00Slight (05/06/2013 00:27:00)[facility] EHCJTFJZZP6801-52-16 05:27:00Slight *ABN*(05/06/2013 00:27:00)[facility] SXIWJRSYNQ0956-57-93 05:27:00Slight *ABN*(05/06/2013 00:27:00)[facility] LOQZAORBV2725-37-76 09:56:001.8[facility] BmszraxCGUQKRKJE4567-37-04 09:56:003.9 [facility] NnlxhsyASCBWJFXB6001-75-00 09:56:001.8[facility] HermannCHEMISTRY 2013-05-05 09:56:003.9[facility] DlmwmmwZPZSMPJCK7400-03-22 08:49:004.64[facility] OdjjyjlSSVYFODCL7693-28-46 08:49:001.18[facility] NanvdbkCCFASCHKC9173-19-32 08:49:004.72[facility] OfpdthvGHGGQRAJV8520-45-24 08:49:001.16[facility] IKEYHNMVX3257-46-41 08:49:004.64[facility] EnxunlxVULEXYJYA3577-91-34 08:49:001.18 [facility] MmsjsbxXMSFYRXGU4527-95-70 08:49:004.72[facility] HermannCHEMISTRY 2013-05-04 08:49:001.16[facility] HermannBEDSIDE GLUCOSE WRKDPRX2931-44-19 00:37:91735Fnhjmgal HermannBEDSIDE GLUCOSE ILQKEGM3439-61-30 00:37:61654Inixrwbm HermannBEDSIDE GLUCOSE XDLBMEC5304-76-49 20:56:0099[facility] HermannBEDSIDE GLUCOSE OWSKYNY2085-60-05 20:56:0099[facility] HermannBEDSIDE GLUCOSE TESTING 2013-05-03 17:11:0094[facility] HermannBEDSIDE GLUCOSE XKOYPDM5076-72-65 17:11:00 94[facility] HgkilicNUVQWRTRY6648-71-67 06:45:004.80[facility] HermannCHEMISTRY 2013-05-03 06:45:001.15[facility] AyfqqglBHTNONKFT7589-19-40 06:45:001.20[facility] QoalsucVOKZQHHTR5938-76-64 06:45:004.60[facility] ByfsazbOPJGVISAD8071-03-91 06:45:004.80[facility] VtojlhcQZTCJEQSL2081-82-71 06:45:001.15[facility] PYWLWIYVW3003-93-97 06:45:001.20[facility] JguduoaWKYWPIFIR9631-28-41 06:45:004.60 [facility] NrpvewoFMXNMJCVN5760-77-81 08:58:005.24[facility] HermannCHEMISTRY 2013-05-02 08:58:001.31[facility] IocqwztKSLHYOXOT1687-42-49 08:58:004.36[facility] SftyxkiMINBDOYJH4817-59-29 08:58:001.09[facility] ZgexcarOPNPVOUPFM2910-41-34 08:58:00>190.0[facility] FqeywnzOLYVZBMSQQ9415-39-01 08:58:0012.1[facility] MuenvfiHFZEVSEJX1993-02-05 08:58:005.24[facility] RwxhamqJKTHIXCLE7579-29-31 08:58:001.31[facility] FpnnxycMWSIRKSHP2132-65-84 08:58:004.36[facility] GPCQKKRZY6130-28-23 08:58:001.09[facility] MqdcyjdBGWTYVVZSD1531-11-94 08:58:00 >190.0[facility] NbhzsatKXFPGCFQDJ1054-78-01 08:58:0012.1[facility] CCMZBWIKO6737-16-82 05:35:0030.1[facility] KksgfnnINNRTWUNQ0157-29-08 05:35:0030.1 [facility] MzhzguuHVKUJAWZRM3322-31-94 07:36:27Negative mg/dL *NA*(04/30/2013 02:36:27)[facility] EmuhxwzJYSFPJKMFL0242-74-72 07:36:27Few /LPF *NA*(04/30/2013 02:36:27)[facility] JugyixfPUUYEKMHJQ5428-56-27 07:36:27Occasional /LPF *NA*(04/30/2013 02:36:27)[facility] OomvxnrZPMSDLOKSE6779-82-07 07:36:27<1 [facility] SiasifeICZHGSVFGC4267-96-27 07:36:276[facility] HermannURINALYSIS 2013-04-30 07:36:27Yellow *NA*(04/30/2013 02:36:27)[facility] HermannURINALYSIS 2013-04-30 07:36:27Clear (04/30/2013 02:36:27)[facility]annURINALYSIS 2013-04-30 07:36:27Negative *NA*(04/30/2013 02:36:27)[facility]annURINALYSIS 2013-04-30 07:36:27Small *ABN*(04/30/2013 02:36:27)[facility]annURINALYSIS 2013-04-30 07:36:27Negative (04/30/2013 02:36:27)[facility]annURINALYSIS 2013-04-30 07:36:27Negative (04/30/2013 02:36:27)[facility]annURINALYSIS 2013-04-30 07:36:2770 mg/dL *ABN*(04/30/2013 02:36:27)[facility] HermannURINALYSIS 2013-04-30 07:36:27Negative mg/dL *NA*(04/30/2013 02:36:27)[facility] USBSEUIASI8204-04-73 07:36:271.019[facility] GiufeofXQVRUZCOHG4530-31-17 07:36:27 6.5[facility] NvrtsvlBSQTBSNURW0367-15-16 07:36:27Negative mg/dL *NA*(04/30/2013 02:36:27)[facility] FyzryefPWFTELDAMP2692-94-46 07:36:27Few /LPF *NA*(04/30/2013 02:36:27)[facility] EereurtVAZFRTQHKF9923-31-23 07:36:27Occasional /LPF *NA*(04/30/2013 02:36:27)[facility] RncvxuqELHJPMCPMO1702-45-21 07:36:27<1 [facility] MgvatzcPMVGNZOUSG7988-61-97 07:36:276[facility]annURINALYSIS 2013-04-30 07:36:27Yellow *NA*(04/30/2013 02:36:27)[facility]annURINALYSIS 2013-04-30 07:36:27Clear (04/30/2013 02:36:27)[facility]annURINALYSIS 2013-04-30 07:36:27Negative *NA*(04/30/2013 02:36:27)[facility]annURINALYSIS 2013-04-30 07:36:27Small *ABN*(04/30/2013 02:36:27)[facility]annURINALYSIS 2013-04-30 07:36:27Negative (04/30/2013 02:36:27)[facility]annURINALYSIS 2013-04-30 07:36:27Negative (04/30/2013 02:36:27)[facility]annURINALYSIS 2013-04-30 07:36:2770 mg/dL *ABN*(04/30/2013 02:36:27)[facility]annURINALYSIS 2013-04-30 07:36:27Negative mg/dL *NA*(04/30/2013 02:36:27)[facility] AJNNBQFANF8565-77-88 07:36:271.019[facility] StfouodXTCATPZAKI4525-91-05 07:36:27 6.5[facility] FebcvjhQTZHQRYAXT5893-50-87 05:47:00Slight *ABN*(04/30/2013 00:47:00)[facility] EbvyvajBKYRUUDKOP7567-37-75 05:47:00Slight *ABN*(04/30/2013 00:47:00)[facility] XpgbmpoPSFJORJUKN3756-87-08 05:47:00Slight (04/30/2013 00:47:00)[facility] EvperqmRPEMGMVHOL4829-30-26 05:47:00Normal (04/30/2013 00:47:00)[facility] DzwzfehETLAWJQYOP5125-60-27 05:47:00Slight *ABN*(04/30/2013 00:47:00)[facility] UuansisKNZLQCQRUV9184-38-90 05:47:00Slight *ABN*(04/30/2013 00:47:00)[facility] SshkcfhYXLHQZWKXJ2914-95-89 05:47:00Slight (04/30/2013 00:47:00)[facility] UmzuevzWXCJXAVOQB2504-88-55 05:47:00Normal (04/30/2013 00:47:00)[facility] ApukqlmFDVSPBTEJ5870-67-16 21:36:0067[facility] HermannCHEMISTRY 2013-04-28 21:36:005.3[facility] PsenuwqKYTUHKXJS1711-28-63 21:36:0080[facility] DjkzhxgIKXNXICFM9350-54-74 21:36:001.5[facility] DemrrspFUWRNYEGH3914-44-53 21:36:87128Chenazmv BddlnmfQPBSDZMXT8328-73-86 21:36:001.1[facility] CCLHWMOHN0739-34-25 21:36:001.7[facility] KkfzebkOKJLCDIMD1638-72-01 21:36:003.6 [facility] ZpcjkylKYLPARVIU8654-92-68 21:36:000.4[facility] HermannCHEMISTRY 2013-04-28 21:36:000.5[facility] QxredmxOMNICEKOI7604-86-68 21:36:0067[facility] HqismvgMWUFBCSCZ1153-64-80 21:36:005.3[facility] SnopcabRVVSNHCEA7014-98-09 21:36:0080[facility] BcuheeoNRFTDMKQG0435-86-60 21:36:001.5[facility]y WFCZAGWTH1124-34-93 21:36:63811Rhpsxdyb BewszsbQSMASODOR7027-23-21 21:36:001.1 [facility] VnyonzzCEBXHYBUF7715-62-30 21:36:001.7[facility] HermannCHEMISTRY 2013-04-28 21:36:003.6[facility] UccdgqcMARTLSQLH7337-61-30 21:36:000.4[facility] ZezhksgZPUKVWJRJ6850-81-68 21:36:000.5[facility] RESULTS 2013-04-28 13:18:00Product available (04/28/2013 08:18:00)[facility] UBPKZQO0834-89-10 13:18:00Product available (04/28/2013 08:18:00)[facility] TTZFSLK0833-75-70 13:18:00Product available (04/28/2013 08:18:00)[facility] FYAIBSB3025-60-03 13:18:00Product available (04/28/2013 08:18:00)[facility] RiijlolVLYEEDLPS3966-37-07 06:00:000.5[facility] HcrcwlqCZYVBNWEK6121-90-28 06:00:000.3[facility] PbtbfmgWAXOZUZRQ9224-39-28 06:00:003.3[facility] AcueoloITJPPRGTD9178-61-29 06:00:001.2[facility] BBNXQJBWF5134-29-05 06:00:000.9[facility] HmprgngTKJSCZQVB8241-50-52 06:00:004.8 [facility] MwrassyKRJSUIKMM4000-10-57 06:00:84763Iogrvyej HermannCHEMISTRY 2013-04-28 06:00:001.5[facility] MhfezyfWHODGNDVB8615-63-18 06:00:0065[facility] LagtvvwVCXTAXOKT6938-16-67 06:00:0080[facility] TbsgizjLLNMVLZPZJ9005-47-03 06:00:00 Test Item Value Reference Range Interpretation Comments PT (test code = PT) 13.6 s 12.0-14.7 N [facility] EphlroxDDPAEIOCTS3950-32-68 06:00:00 Test Item Value Reference Range Interpretation Comments PTT (test code = PTT) 37.3 s 22.9-35.8 H [facility] CantgenPIWLTLHHTX5660-54-80 06:00:001.02[facility] HermannCHEMISTRY 2013-04-28 06:00:000.5[facility] AxelhuuGQXDDJUNE8433-91-02 06:00:000.3[facility] WhnogygMUXINNLSL6891-13-99 06:00:003.3[facility] IcddiugDFJTRLOEO7608-71-41 06:00:001.2[facility] KvoxrhuFYCTQYYIP9927-24-70 06:00:000.9[facility] EVYMAXNEJ0600-49-99 06:00:004.8[facility] YlivrggUHRQFXZDG4911-37-55 06:00:92870 [facility] TpkhlwpNCHBLOZSJ1894-88-37 06:00:001.5[facility] HermannCHEMISTRY 2013-04-28 06:00:0065[facility] BvephneQAVZOLHRW4585-88-30 06:00:0080[facility] MxqfmnwVMOHHOEXTA5142-87-36 06:00:00 Test Item Value Reference Range Interpretation Comments PT (test code = PT) 13.6 s 12.0-14.7 N [facility] ObqqykiKGGOLTHBZU0218-59-51 06:00:00 Test Item Value Reference Range Interpretation Comments PTT (test code = PTT) 37.3 s 22.9-35.8 H [facility] XfhaiapXJDKVBZZGS5390-18-00 06:00:001.02[facility]annBLOOD BANK MXQJOEZ3219-42-87 05:01:00Negative (04/28/2013 00:01:00)[employer] HermannBLOOD BANK YQWQMPD6553-00-66 05:01:00Negative (04/28/2013 00:01:00)[facility] EKZOPCDDG5065-63-58 20:59:234069Xymphkdg AtvdjhbDPAZSYYTC8418-48-45 20:59:4113.0 [facility] AobgfxfJCOOSWESB0306-46-06 20:59:323520Duaflilq HermannCHEMISTRY 2013-04-27 20:59:4113.0[facility] PdxojtyWRAMHYQHYT4344-37-23 05:23:1312.3[facility] RedeotfEDSPKHDOAY4266-42-96 05:23:13 Test Item Value Reference Range Interpretation Comments Max Amp (test code = Max Amp) 71 mm 52-71 N [facility] CampusCodbrzjTPFFISXSWE2317-90-20 05:23:130.0Memorimd HermannHEMATOLOGY 2013 05:23:13 Test Item Value Reference Range Interpretation Comments ACT (TEG) (test code = ACT (TEG)) 105 s 86-118 N [facility]fieldStutpnwLQKJSGCBBP1417-52-16 05:23:13 Test Item Value Reference Range Interpretation Comments R-time (test code = R-time) 0.6 min 0.4-0.7 N [facility] CampusVrbworlBFIDIWWIYR2360-03-02 05:23:13 Test Item Value Reference Range Interpretation Comments K-time (test code = K-time) 1.2 min 0.6-2.3 N [facility] CampusRgpropnVVRNTAWJPY0401-86-93 05:23:13 Test Item Value Reference Range Interpretation Comments Angle (test code = Angle) 74 degrees 64-80 N [facility] CampusZeczjffHZYQBWOGAE3032-30-89 05:23:13 Test Item Value Reference Range Interpretation Comments Split Point (test code = Split Point) 0.4 min [facility] CampusBuixdilBEXVUZNENT7094-50-47 05:23:1312.3[facility] HermannHEMATOLOGY 2013 05:23:13 Test Item Value Reference Range Interpretation Comments Max Amp (test code = Max Amp) 71 mm 52-71 N [facility]fieldNxhrofuGRYVVRKIRT8715-44-25 05:23:130.0[facility]annHEMATOLOGY 2013 05:23:13 Test Item Value Reference Range Interpretation Comments ACT (TEG) (test code = ACT (TEG)) 105 s 86-118 N [facility] MansfieldLrrsinxFOZDIUYNMD4628-85-46 05:23:13 Test Item Value Reference Range Interpretation Comments R-time (test code = R-time) 0.6 min 0.4-0.7 N [facility] DsonbozYRGWXPYHTZ3228-79-78 05:23:13 Test Item Value Reference Range Interpretation Comments K-time (test code = K-time) 1.2 min 0.6-2.3 N [facility] EixmbcpSADFBYJCRK2677-93-54 05:23:13 Test Item Value Reference Range Interpretation Comments Angle (test code = Angle) 74 degrees 64-80 N [facility] CqwdvlvQLWCGHRPEL6052-85-28 05:23:13 Test Item Value Reference Range Interpretation Comments Split Point (test code = Split Point) 0.4 min [facility] HlpwmuvYMAXNZVIC5926-84-17 21:39:624672Kibejoip HermannCHEMISTRY 2013-04-25 21:39:2316.6[facility] RffighaVQLBGJKPT9346-47-31 21:39:164401Uobcmjsh XprogwrQXXHYOKFK1578-01-45 21:39:2316.6[facility] IbngqrtDIYUMZACQ4925-79-66 09:24:0028[facility] IpayjthKCNZAOLSE9636-06-10 09:24:0049[facility] DGBOTFNPP9307-65-34 09:24:002[facility] EfffbhkMKCSPESDE2907-68-55 09:24:0099.0 [facility] UpkiahjFWFDPFQKE2082-91-27 09:24:48821Apjvabku HermannCHEMISTRY 2013-04-25 09:24:0037.0[facility] QuvllrnELQXXWIHE5800-18-18 09:24:007.36[facility] LhbakrdZNJXAAHOI3933-81-30 09:24:0028[facility] BbrknjwLHBTXFWXE0875-15-45 09:24:0049[facility] IlslyueWJWFCZQAF5735-68-88 09:24:002[facility] HermannCHEMISTRY 2013-04-25 09:24:0099.0[facility] MveimunFYKOPLDOH8733-62-70 09:24:02920Mowjyiev VugmikaKAEMDRBHS5300-49-61 09:24:0037.0[facility] QocvpyvPDJMDTCKR1710-02-44 09:24:007.36[facility] JzdthkuMTXTCXOYH8454-05-22 05:45:001.0[facility] JPLGRFIDK1778-00-19 05:45:96615Regztzzo SfmksntFOANSZJHX0006-04-07 05:45:34520 [facility] CfovdahVXHZUPCYP3216-16-96 05:45:0029[facility] HermannCHEMISTRY 2013-04-25 05:45:0099.0[facility] KlhgeurCZYHUTXOR9978-83-69 05:45:0058[facility] HzmndwbOQPZYTMNI7412-98-26 05:45:003[facility] IhcndqkKIOSMNTWF9595-50-62 05:45:00 3.8[facility] CrzjyfvGIKAFBKQH5689-91-88 05:45:001.09[facility] HermannCHEMISTRY 2013-04-25 05:45:0021.0[facility] LnuxscoYALYWIQSJ2418-93-17 05:45:14819Unevavwp DgufavaQVWKURINF7996-29-04 05:45:0037.0[facility] QsggcdxMEMHKGVDU0979-52-74 05:45:007.31[facility] BbksllnOBVFJKPQV6667-22-59 05:45:001.0[facility] AGZZRZQUD6783-70-60 05:45:55851Llwwplhx NhpbdowTBGHSDQEZ2881-99-65 05:45:07107 [facility] ZdhvptyEGBMRFEZS2494-40-10 05:45:0029[facility] HermannCHEMISTRY 2013-04-25 05:45:0099.0[facility] VvkhjmmQZAAIAKOU3910-14-79 05:45:0058[facility] UbmkdacQQXOJVXMO1609-41-82 05:45:003[facility] YwwlmvvTPBXOEICO4491-07-72 05:45:00 3.8[facility] TpvogcuHATLKVAUZ1285-64-55 05:45:001.09[facility] HermannCHEMISTRY 2013-04-25 05:45:0021.0[facility] SizsuqxDPCCAYYZS7971-32-67 05:45:00981Njwvennl DyvtatwHMOVNFRCK9432-47-03 05:45:0037.0[facility] UpzbqvdCKDGNJZKV7275-96-08 05:45:007.31[facility] GwbbclrUKSRBDNOIH4879-97-29 05:05:46 Test Item Value Reference Range Interpretation Comments K-time (test code = K-time) 1.5 min 0.6-2.3 N [facility] CampusSelbjguNHUGFRWUQS8893-91-11 05:05:460.6[facility] HermannHEMATOLOGY 2013-04-25 05:05:46 Test Item Value Reference Range Interpretation Comments Max Amp (test code = Max Amp) 67 mm 52-71 N [facility] CampusOyyqvqwYAYVIHDDHW0423-98-31 05:05:469.9[facility]im[facility] HermannHEMATOLOGY 2013-04-25 05:05:46 Test Item Value Reference Range Interpretation Comments Angle (test code = Angle) 72 degrees 64-80 N [facility] CampusJayqwoaFLDKYZNVJB8582-21-91 05:05:46 Test Item Value Reference Range Interpretation Comments ACT (TEG) (test code = ACT (TEG)) 152 s 86-118 H [facility]fieldLuzbogjRVLGNHXRRA1161-83-78 05:05:46 Test Item Value Reference Range Interpretation Comments R-time (test code = R-time) 1.1 min 0.4-0.7 H [facility] CampusPpccspvDZZHDAZJKC2149-62-34 05:05:46 Test Item Value Reference Range Interpretation Comments Split Point (test code = Split Point) 0.9 min [facility] CampusXhpgmhwNAVTEMAHMD5581-01-02 05:05:46 Test Item Value Reference Range Interpretation Comments K-time (test code = K-time) 1.5 min 0.6-2.3 N [facility] CampusGlkbmybCMUFFDMHZS2414-54-05 05:05:460.6[facility]annHE[facility] 2013-04-25 05:05:46 Test Item Value Reference Range Interpretation Comments Max Amp (test code = Max Amp) 67 mm 52-71 N [facility] CampusNqidpfnQNERHJGMRA2406-64-45 05:05:469.9MeThe [facility]annHEMATOLOGY 2013-04-25 05:05:46 Test Item Value Reference Range Interpretation Comments Angle (test code = Angle) 72 degrees 64-80 N [facility] CampusGbrkguaNROVFYZPOH1866-46-60 05:05:46 Test Item Value Reference Range Interpretation Comments ACT (TEG) (test code = ACT (TEG)) 152 s 86-118 H [facility] MduovjdNNSCPFDTGJ9000-10-95 05:05:46 Test Item Value Reference Range Interpretation Comments R-time (test code = R-time) 1.1 min 0.4-0.7 H [facility] AfleaohOSSOSARUIS1253-25-91 05:05:46 Test Item Value Reference Range Interpretation Comments Split Point (test code = Split Point) 0.9 min [facility] WbwqfhgNLPIZYGBQ0420-40-64 05:05:74011Viquviqs HermannIMMUNOLOGY 2013-04-25 05:05:006.6[facility] SdojjsdKNLBWRWOOZ3973-52-33 05:05:00>190.0 mg/L 32(04/25/2013 00:05:00)[facility] DhnrrfhJIFSNJVIK0542-56-05 05:05:18270 [facility] AipwevsYIEDHNOHHO9012-86-11 05:05:006.6[facility] HermannIMMUNOLOGY 2013-04-25 05:05:00>190.0 mg/L 32(04/25/2013 00:05:00)[facility] ZTEQAHTDZF0533-84-07 08:00:00 Test Item Value Reference Range Interpretation Comments Max Amp (test code = Max Amp) 65 mm 52-71 N [facility] CampusRecthtzGPRHDYGQUY8974-67-57 08:00:000.0[facility]annHE[facility] 2013-04-24 08:00:009.3[facility] DydpvsxAYZQNDMVSR0080-30-49 08:00:00 Test Item Value Reference Range Interpretation Comments Angle (test code = Angle) 74 degrees 64-80 N [facility] SvkcgrjKTACOBVFNL5328-91-33 08:00:00 Test Item Value Reference Range Interpretation Comments K-time (test code = K-time) 1.2 min 0.6-2.3 N [facility] OiqobzuEDTEMDJQYB6749-35-04 08:00:00 Test Item Value Reference Range Interpretation Comments Split Point (test code = Split Point) 0.2 min [facility] QmmcztsXGASDIPPVM9551-81-97 08:00:00 Test Item Value Reference Range Interpretation Comments R-time (test code = R-time) 0.5 min 0.4-0.7 N [facility] BiojnnfMRHKAAWZJL7401-75-55 08:00:00 Test Item Value Reference Range Interpretation Comments ACT (TEG) (test code = ACT (TEG)) 97 s 86-118 N [facility] CampusHxtpntfMICQYHGOHC2787-22-50 08:00:00 Test Item Value Reference Range Interpretation Comments Max Amp (test code = Max Amp) 65 mm 52-71 N [facility]fieldNusbepeOTLKCEJIZI7858-22-28 08:00:000.0[facility]AT[facility] 2013-04-24 08:00:009.3[facility] IvxumaeVOTZPRULNI3507-78-04 08:00:00 Test Item Value Reference Range Interpretation Comments Angle (test code = Angle) 74 degrees 64-80 N [facility] CampusCwpaacmTPOPOSCHHH6755-95-02 08:00:00 Test Item Value Reference Range Interpretation Comments K-time (test code = K-time) 1.2 min 0.6-2.3 N [facility]fieldOcwmsqsFELJXKMEJT2723-45-81 08:00:00 Test Item Value Reference Range Interpretation Comments Split Point (test code = Split Point) 0.2 min [facility] CampusLiskqmtOCHJVERYFS2333-82-27 08:00:00 Test Item Value Reference Range Interpretation Comments R-time (test code = R-time) 0.5 min 0.4-0.7 N [facility] CampusCpfybvoZHNPQXAVKO8071-70-31 08:00:00 Test Item Value Reference Range Interpretation Comments ACT (TEG) (test code = ACT (TEG)) 97 s 86-118 N [facility] MansfieldBggriqrFIKFSSNOAV2285-62-13 06:49:00Slight *ABN*(04/24/2013 01:49:00) [facility]fieldHtjfzssYCILWPCVOO1572-59-02 06:49:00Slight *ABN*(04/24/2013 01:49:00) [facility] CampusAwhiwwmGDCYTEPTQM7379-54-32 06:49:00Slight *ABN*(04/24/2013 01:49:00) [facility]fieldHyuabhoVUFHAUODAV2158-64-51 06:49:001+ *ABN*(04/24/2013 01:49:00) [facility] MansfieldDmpixbrNILBUEKQLA7481-55-68 06:49:00Slight (04/24/2013 01:49:00) [facility]jpqkggCIAPJXRPPZ3842-57-02 06:49:00Slight *ABN*(04/24/2013 01:49:00) [facility] OiusrbrEEIIHLCQRI1496-20-43 06:49:00Slight *ABN*(04/24/2013 01:49:00) [facility] YiavyayXORGVMYSYS7005-87-55 06:49:00Slight *ABN*(04/24/2013 01:49:00) [facility] AugrmyrFIBHUEPJED9508-87-30 06:49:001+ *ABN*(04/24/2013 01:49:00) [facility] BumdinsIVHJGAKIMY4091-55-00 06:49:00Slight (04/24/2013 01:49:00) [facility] CunwydpUBDXQUVRW6987-45-04 00:01:50976Naviagrm HermannCHEMISTRY 2013-04-24 00:01:0037.0[facility] GezxsdsJWRNVVWVU0960-95-03 00:01:007.46[facility] DnrferpJBGVFISAJ4249-86-84 00:01:02693Brkahent HzwqtvgILLVWPKOQ0124-09-39 00:01:0028[facility] SxwsoxxEBCCOELCX4354-17-33 00:01:0039[facility] TLRXXROSA5722-88-67 00:01:004[facility] UeundndEGSDEKQUD1161-66-42 00:01:003.7 [facility] DyoszzpZKFQCLRVQ2616-89-93 00:01:0098.0[facility] HermannCHEMISTRY 2013-04-24 00:01:001.09[facility] IhuboonVWOWDGVTB0382-08-20 00:01:0027.0[facility] KiqxlkqZJDJILIRK6675-91-15 00:01:84588Gqbueubz FewwxgqSFZBAIBVW6197-61-17 00:01:001.4[facility] MmzwpmzRMCYFBUKA5412-83-83 00:01:05853Qfenttma Jackson ETUOWFEKZ8744-61-73 00:01:0037.0[facility] BsfgwyrEIVWEORDD6310-09-52 00:01:007.46 [facility] RlqptgxOKYPKUWWP5432-38-67 00:01:95115Iczzvtrb HermannCHEMISTRY 2013-04-24 00:01:0028[facility] ZxnwyigVIZNNALJG3590-18-33 00:01:0039[facility] TqynklwNCBWRLPOB8948-81-20 00:01:004[facility] DtglgztYOLQMWPOQ9129-64-86 00:01:00 3.7[facility] MzaklzmPGUNRTYZE4565-92-75 00:01:0098.0[facility] HermannCHEMISTRY 2013-04-24 00:01:001.09[facility] WrujpvbONSVTAGPL6879-33-51 00:01:0027.0[facility] YlmeanuVHKHVZNSI4499-37-87 00:01:42694Ozftanci BftsdmkOTDAPRLUY1035-97-40 00:01:001.4[facility] CbsgzboRTCFUZFLE7960-36-16 19:34:921777Keogrbqd Dusty VAQPVUKGI2212-33-20 19:34:4923.6[facility] ZjpjxrqWCZJUOEDP7402-03-06 19:34:972746 [facility] BhvegrnAOIXSSHZG0436-92-74 19:34:4923.6[facility] HermannBODY FLUIDS 2013-04-23 12:02:19Pleural *NA*(04/23/2013 07:02:19)[facility] HermannBODY FLUIDS 2013-04-23 12:02:194.0[facility] HermannBODY RHOXJK0504-64-81 12:02:19Pleural *NA*(04/23/2013 07:02:19)[facility] HermannBODY NFENMH4565-75-93 12:02:194.0 [facility] HermannBODY RCKAZM0875-68-70 12:00:59Pleural *NA*(04/23/2013 07:00:59) [facility] HermannBODY EBTOTH2408-56-73 12:00:593.9[facility] HermannBODY FLUIDS 2013-04-23 12:00:59Pleural *NA*(04/23/2013 07:00:59)[facility] HermannBODY FLUIDS 2013-04-23 12:00:593.9[facility] HermannBODY KCSUZU9417-74-88 11:55:37JP Drain *NA*(04/23/2013 06:55:37)[facility] HermannBODY PMQFIQ5875-59-64 11:55:3711.0 [facility] HermannBODY VPYKWQ9805-71-91 11:55:37JP Drain *NA*(04/23/2013 06:55:37) [facility]annB[facility] NIVQOR7194-26-03 11:55:3711.0Memorimd HermannHEMATOLOGY 2013-04-23 05:01:00Slight *ABN*(04/23/2013 00:01:00)[facility]annHE[facility] 2013-04-23 05:01:00Slight *ABN*(04/23/2013 00:01:00)[facility]annHE[facility]Y 2013-04-23 05:01:002[facility] OhgwjtgXHIRXXSOMO9422-21-04 05:01:00Slight (04/23/2013 00:01:00)[facility] CampusLoydfrwCHVQSKJNKJ9115-38-45 05:01:00Slight *ABN*(04/23/2013 00:01:00)[facility] CampusNfoltliXPXGJEXAFK0054-04-06 05:01:00Slight *ABN*(04/23/2013 00:01:00)[facility] CampusCuhbjrjZZWVTYNNKN0487-59-24 05:01:00Slight *ABN*(04/23/2013 00:01:00)[facility] CampusJbfszqyRSCPONQZRO7390-19-86 05:01:002[facility] ZtxtxpfLWKACLTWEH3292-52-28 05:01:00Slight (04/23/2013 00:01:00)[facility] CampusPnlokrgUUMNUZWIIR4903-09-32 05:01:00Slight *ABN*(04/23/2013 00:01:00)[facility] CampusUisaxliHJVMYSKGEJ3952-94-99 04:27:43Negative *NA*(04/22/2013 23:27:43)[facility] CampusZpzjsxgNUKAIEWNCM5786-22-71 04:27:43Negative mg/dL *NA*(04/22/2013 23:27:43) [facility] OpthedsULJSUHOEEO0407-92-21 04:27:43Negative (04/22/2013 23:27:43) [facility] EzwmrpmDOIQYHGBZB3973-77-25 04:27:436.0[facility] HermannURINALYSIS 2013-04-23 04:27:431.032[facility] XsztpugKSKIOHYRFQ0592-28-00 04:27:43Clear (04/22/2013 23:27:43)[facility] NjkuwmhJLOJTIAWTB7175-98-92 04:27:43Dark Yellow *NA*(04/22/2013 23:27:43)[facility] NzexxuqVOCGDLOSRC9470-13-39 04:27:86284 mg/dL *ABN*(04/22/2013 23:27:43)[facility] WvhcbfeUDZSFGSEQW4123-45-74 04:27:43Negative mg/dL *NA*(04/22/2013 23:27:43)[facility] CxwhleoSIXCESQORV1932-97-34 04:27:438.0 [facility] AwvhbsbZQJDEXPEIB5887-34-71 04:27:43Moderate *ABN*(04/22/2013 23:27:43) [facility] PuorrblOMWOZMFDPW8861-59-19 04:27:432[facility] 2013-04-23 04:27:43Negative (04/22/2013 23:27:43)[facility] 2013-04-23 04:27:431[facility] UdgwoqiGXFZCXYNAE5503-97-99 04:27:43Few /LPF *NA*(04/22/2013 23:27:43)[facility] JlbmzyrMNQKWHQORW5387-37-45 04:27:43Negative *NA*(04/22/2013 23:27:43)[facility] SljhdprALCLGEGLVS0246-74-22 04:27:43Negative mg/dL *NA*(04/22/2013 23:27:43)[facility] ClpkgzbTXZCDPJDWD2113-50-45 04:27:43 Negative (04/22/2013 23:27:43)[facility] TztzpajYNMDKMSMWL7988-85-29 04:27:436.0 [facility] LhavsxlEUJOUFCYDG1729-95-52 04:27:431.032[facility] 2013-04-23 04:27:43Clear (04/22/2013 23:27:43)[facility] 2013-04-23 04:27:43Dark Yellow *NA*(04/22/2013 23:27:43)[facility] LYVHFUHHDS4306-03-39 04:27:46145 mg/dL *ABN*(04/22/2013 23:27:43)[facility] OtrubrtTXEGPCYDFB1957-82-14 04:27:43Negative mg/dL *NA*(04/22/2013 23:27:43) [facility] OthhimqDXHRKDVVQA4370-25-35 04:27:438.0[facility] 2013-04-23 04:27:43Moderate *ABN*(04/22/2013 23:27:43)[facility] 2013-04-23 04:27:432[facility] OfkcgpmVXBOJBGRWX6649-64-04 04:27:43Negative (04/22/2013 23:27:43)[facility] ApuucscHLLHNYWWVV2260-46-79 04:27:431[facility] PnstdlpUTHGQPAPED2945-36-28 04:27:43Few /LPF *NA*(04/22/2013 23:27:43)[facility] [employer] GZVNWOL8531-78-76 10:45:00Negative (04/22/2013 05:45:00) [facility] [employer] B[employer] VIALQCY7111-19-35 10:45:00Negative (04/22/2013 05:45:00)[facility] IngxezdTSSGEBWZQ2720-04-25 05:08:0040.0[facility] PTFUPGOWE4137-47-16 05:08:001.17[facility] BkpmlodOPVIILOZH0738-66-65 05:08:01614 [facility] YtfshywBEUCTKAXM1838-40-39 05:08:003.2[facility] HermannCHEMISTRY 2013-04-22 05:08:002.1[facility] VrmzrkqHQQLDGPYT3558-37-81 05:08:19088Ppsyjiez GftoikmSDUJBVGAG4666-04-17 05:08:00 Test Item Value Reference Range Interpretation Comments POC A Mech Rate 12 bpm See_Comment N [Automated message] The (test code = POC A system wh [facility] generated this Mech Rate) result transmit jermaine reference range : <=70. The reference range was not used to interpr et this result as spencer l/abnormal. [facility] FaewpwtYTFAJQNUQ6989-07-09 05:08:76684Hzxxpyjf HermannCHEMISTRY 2013-04-22 05:08:005.0[facility] CkhndhkTJLJYOTEC6639-27-47 05:08:0040.0[facility] XstxdpiYSSLSVGTR0035-13-24 05:08:001.17[facility] KxfdcfcIRZLODDDO4442-21-27 05:08:87590Gnxzlkrv PwseeipMEZNODNED7984-47-76 05:08:003.2[facility] SEVPMHMQJ4673-68-49 05:08:002.1[facility] KfjtpviNZTJQTDXU3650-33-96 05:08:49353 [facility] VggareeTKFFOCBKQ1119-98-51 05:08:00 Test Item Value Reference Range Interpretation Comments POC A Mech Rate 12 bpm See_Comment N [Automated message] The (test code = POC A system [employer] generated this Mech Rate) result transmit jermaine reference range : <=70. The reference range was not used to interpr et this result as spencer l/abnormal. [facility] RrspbvmGETILYHTZ6323-95-58 05:08:72403Omsdtsmb HermannCHEMISTRY 2013-04-22 05:08:005.0[facility] XbqrxbbNNVSUJSPI7013-42-38 05:00:002.7[facility] CgndaiuTUKUMKDYF8230-39-26 05:00:002.7[facility] HermannSTOOL WEFNP6129-50-93 09:59:15Positive *ABN*(04/21/2013 04:59:15)[facility] HermannSTOOL PZGZD7299-88-20 09:59:15Positive *ABN*(04/21/2013 04:59:15)[facility] UbfopinVDKYUYBHJ3710-37-22 05:10:0040.0[facility] JfjaqvbPHDEXHUXU3281-38-20 05:10:45174Ykbpkqck Dusty GLBCFFPRP8428-53-72 05:10:00 Test Item Value Reference Range Interpretation Comments POC A Mech Rate 12 bpm See_Comment N [Automated message] The (test code = POC A system ich generated this Mech Rate) result transmit jermaine reference range : <=70. The reference range was not used to interpr et this result as spencer l/abnormal. [facility] QwokcbdQYHSOBNHN1387-73-66 05:10:005.0[facility] HermannCHEMISTRY 2013-04-21 05:10:0040.0[facility] QgldffnUJWLYCYLK3538-89-41 05:10:87897Iodticvb FzxwhftMLLZDFTEM9483-58-52 05:10:00 Test Item Value Reference Range Interpretation Comments POC A Mech Rate 12 bpm See_Comment N [Automated message] The (test code = POC A system wh ich generated this Mech Rate) result transmit jermaine reference range : <=70. The reference range was not used to interpr et this result as spencer l/abnormal. [facility] VescuwfGQKNGDDHD7377-48-45 05:10:005.0[facility]annCHEMISTRY 2013-04-20 21:09:0030.0[facility] DvbxlddVUCEJUTFS1281-14-28 21:09:0030.0[facility] PujcchqKKNULZMGZ5463-51-00 16:38:001.4[facility] JqiziuaHKOYKTJDB3530-80-50 16:38:001.4[facility] RkskkhwCUWEPRFBP7353-04-51 05:30:002.6[facility] FKZHYFCYY5740-93-22 05:30:002.6[facility] CkzjmakGXGAYJKJV2907-54-54 03:58:4119.9 [facility] YqszzgwZKMEJADBR8221-04-86 03:58:4119.9[facility]annURINALYSIS 2013-04-19 02:32:50Few /LPF *NA*(04/18/2013 21:32:50)[facility]annURINALYSIS 2013-04-19 02:32:502[facility] BmczhzmEYLNJOUKQN7694-34-73 02:32:501[facility] IioxrarMNFKBPLGYX7820-22-28 02:32:50Occasional /HPF *NA*(04/18/2013 21:32:50) [facility] WrgtzwuKVDPMXAEGJ8666-46-66 02:32:50Negative (04/18/2013 21:32:50) [facility] GwuihutESWZNDNARL8297-15-47 02:32:5050 mg/dL *ABN*(04/18/2013 21:32:50) [facility] GbgnitgIZWZXNFZBU2728-16-21 02:32:50Negative *NA*(04/18/2013 21:32:50) [facility] XmclixiTAMLFOYXYI5296-52-77 02:32:5010 mg/dL *ABN*(04/18/2013 21:32:50) [facility] SxziopxPXWIKSNVTZ4970-50-06 02:32:50Negative (04/18/2013 21:32:50) [facility] VkunmzrBAQDXENHGX6719-06-14 02:32:50Large *ABN*(04/18/2013 21:32:50) [facility] BddqqcgGAKIKYXUGK2010-56-78 02:32:50Negative mg/dL *NA*(04/18/2013 21:32:50)[facility] MhndpreIWZIUQHWDX9612-09-82 02:32:506.0[facility]y MDOGIYIZCU2504-17-69 02:32:501.019[facility] RexeyrsMZOZQWBNKB6919-41-49 02:32:50 Clear (04/18/2013 21:32:50)[facility] FtkuaeeTTOHIQBTWE5761-04-18 02:32:50Yellow *NA*(04/18/2013 21:32:50)[facility] QxgovskXPDHBVYCLZ1344-76-25 02:32:50Few /LPF *NA*(04/18/2013 21:32:50)[facility] FsiwbxmCWSEOMRVBY8967-45-35 02:32:502[facility] MhthpkyCDHENUCDPG1338-91-91 02:32:501[facility] RdsujfmCWVJGTORCU0754-29-16 02:32:50Occasional /HPF *NA*(04/18/2013 21:32:50)[facility]annURINALYSIS 2013-04-19 02:32:50Negative (04/18/2013 21:32:50)[facility]annURINALYSIS 2013-04-19 02:32:5050 mg/dL *ABN*(04/18/2013 21:32:50)[facility]annURINALYSIS 2013-04-19 02:32:50Negative *NA*(04/18/2013 21:32:50)[facility]annURINALYSIS 2013-04-19 02:32:5010 mg/dL *ABN*(04/18/2013 21:32:50)[facility]annURINALYSIS 2013-04-19 02:32:50Negative (04/18/2013 21:32:50)[facility]annURINALYSIS 2013-04-19 02:32:50Large *ABN*(04/18/2013 21:32:50)[facility]annURINALYSIS 2013-04-19 02:32:50Negative mg/dL *NA*(04/18/2013 21:32:50)[facility] GHPNZAKJNH3945-88-70 02:32:506.0[facility] XlieyilMLFYCIKGXU3453-89-86 02:32:50 1.019[facility] WsrospiETISSEFCMJ1233-96-31 02:32:50Clear (04/18/2013 21:32:50) [facility] PyhvonyMIEJMMAZUQ0878-40-53 02:32:50Yellow *NA*(04/18/2013 21:32:50) [facility] UugwjouQYLRZNJKW7311-11-71 00:46:0049[facility]annCHEMISTRY 2013-04-19 00:46:0037.0[facility] VumkfseECCGCBKOZ0831-76-01 00:46:0082.0[facility] TwimiflVEGSFWGDW7741-19-47 00:46:0025[facility] MyiwdqeOYYXUMWXR5570-73-11 00:46:00-1[facility] BlmkafuVMEVEOCSQ7037-40-41 00:46:0050[facility] VBOJTFOUO0253-48-35 00:46:007.32[facility] DpzzkrrLWKRAUYJU0392-12-05 00:46:0049 [facility] TkrcarlBJMMOSXKW1849-01-28 00:46:0037.0[facility]annCHEMISTRY 2013-04-19 00:46:0082.0[facility] AldspuwJOOAJWIFP5107-40-18 00:46:0025[facility] TcvmxpmCBYLSHTTT2585-79-04 00:46:00-1[facility] ApdwtrfDUYJMZIVQ0011-77-84 00:46:0050[facility] LrwlbvrYNZFAOPTM4182-33-93 00:46:007.32[facility] EZVVKQW5718-57-97 00:36:00Product available (04/18/2013 19:36:00)[facility] BBAETJZ4831-56-09 00:36:00Product available (04/18/2013 19:36:00)[facility] MWLULBH1725-79-33 00:36:00Product available (04/18/2013 19:36:00)[facility] GDPITYB3525-39-94 00:36:00 Product available (04/18/2013 19:36:00)[facility] WatqgenRRWRXNEQV1180-94-00 06:58:0078.0[facility] DrtkvfpJEOYKDXSP0567-20-68 06:58:0033[facility] RCHBXJDEY2747-24-12 06:58:005[facility] HzdvkwgCQPRFSBBW3432-36-31 06:58:0045 [facility] PpvwjlyJNGRUTCIS3050-96-53 06:58:0059[facility]annCHEMISTRY 2013-04-18 06:58:007.35[facility] HlzpbqlWBNIARLAU7204-37-45 06:58:0037.0[facility] YrdcjaxXOVUTUURT6655-33-71 06:58:0078.0[facility] AcnoeklCKAXFCOAK5619-95-33 06:58:0033[facility] LkexrltFNACLPFOK2910-08-46 06:58:005[facility] HermannCHEMISTRY 2013-04-18 06:58:0045[facility] PplwjdaTMEOCHLUG1960-30-23 06:58:0059[facility] ZhzgddwBPDWPKQQM8834-27-39 06:58:007.35[facility] FexxgxhMYXLEUZAT1020-77-19 06:58:0037.0[facility] KwyujciBWSZTZGHG6121-22-54 05:23:328[facility] QSXHEPPXB9082-64-84 05:23:328[facility] FJHGLVY5444-39-24 04:38:00Product available (04/17/2013 23:38:00)[facility] GUVOLYD4905-00-61 04:38:00Product available (04/17/2013 23:38:00)[facility] STIIXFZ0682-43-28 02:32:00Product available (04/17/2013 21:32:00)[facility] JRWSZNP4275-95-49 02:32:00Product available (04/17/2013 21:32:00)[facility] PZDIFEJ7077-26-42 02:32:00 Product available (04/17/2013 21:32:00)[facility] RESULTS 2013-04-18 02:32:00Product available (04/17/2013 21:32:00)[facility] YUIFBUPXIU8918-41-60 01:05:500.0[facility] TsltgdrAHUPZHZAGH7395-09-22 01:05:50See Note 29(04/17/2013 20:05:50)[facility] AvefqymPSBLXCOGIR1450-74-41 01:05:50-0.4 [facility] WdsedhqWPPFMTDNXJ9771-97-38 01:05:500.0[facility] HermannHEMATOLOGY 2013-04-18 01:05:50See Note 29(04/17/2013 20:05:50)[facility]annHEMATOLOGY 2013-04-18 01:05:50-0.4[facility] HermannBACTERIAL - XVWFAFQW5381-18-70 01:04:27 Negative 1(04/17/2013 20:04:27)[facility] HermannBACTERIAL - KXOTVUWD8942-92-37 01:04:27Negative 1(04/17/2013 20:04:27)[facility] TqwtltsMJATZHBFR2207-55-57 21:44:5724.0[facility] AuhhvmaCJNVWSDIS3311-16-85 21:44:5737.0[facility] NZUBTUKSR8074-08-26 21:44:5724[facility] TywecchZMSIGTDXE2462-59-93 21:44:577.12 [facility] UhjodtxIKQQHPHPJ0999-65-24 21:44:5767[facility] HermannCHEMISTRY 2013-04-17 21:44:5722[facility] MwaznssSJRWURAOB6698-29-96 21:44:57-9[facility] LbjcxvoAQPCFFYWL9980-68-30 21:44:5724.0[facility] XoqfwhzPHFSYYDOI0264-11-03 21:44:5737.0[facility] QyknitoWMBUHSCYB2726-92-77 21:44:5724[facility] AOBYCBXPB7048-94-99 21:44:577.12[facility] UwxtqsePUTYYEKPZ2875-61-85 21:44:5767 [facility] IauipyoPXNXPBJEP0668-66-39 21:44:5722[facility] HermannCHEMISTRY 2013-04-17 21:44:57-9[facility] EPZGDJY9247-79-05 21:44:00 Negative 12(04/17/2013 16:44:00)[facility] OyoxapsMHJIGYPOK5436-65-96 21:44:00 23(04/17/2013 16:44:00)[facility] JdjviddCSRFBVDTB3483-44-06 21:44:0024(04/17/2013 16:44:00)[facility] MKTNOYL7810-65-51 21:44:00Negative 12(04/17/2013 16:44:00)[facility] WjtvzseMTCJGHQOE8097-73-61 21:44:0023(04/17/2013 16:44:00)[facility] HyotlqwWTGOHDYRM1780-56-39 21:44:0024(04/17/2013 16:44:00) [facility] Dusty
[2020-12-17] MEDS ORDERED: LIDOCAINE 1% MPF 5 ML VIAL ONE (15:11)
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
[2020-12-17] MEDS ORDERED: TRAMADOL HCL 50 MG TAB ONE (16:21)
[2020-12-17 16:28] VITALS: TEMP 98.5
[2020-12-17 16:29] VITALS: O2SAT 98
[2020-12-17 16:47] VITALS: BP 132/85
[2020-12-17] MEDS ORDERED: ALPRAZOLAM 1 MG TABLET ONE (16:53)
== END 2020-12-17 16:42 | disposition home or self-care (01) ==
LOC: ER 14:14
PROC: 0JQH0ZZ Repair Left Lower Arm Subcutaneous Tissue and Fascia, Open Approach (ICD-10-PCS; principal; 2020-12-17)
PROC: 0JQP0ZZ Repair Left Lower Leg Subcutaneous Tissue and Fascia, Open Approach (ICD-10-PCS; 2020-12-17)
DX: S51.812A Laceration without foreign body of left forearm, initial encounter (principal); S81.812A Laceration without foreign body, left lower leg, initial encounter; W26.8XXA Contact with other sharp object(s), not elsewhere classified, initial encounter; Y93.89 Activity, other specified; Y92.89 Other specified places as the place of occurrence of the external cause; F17.210 Nicotine dependence, cigarettes, uncomplicated
CPT/HCPCS: 99284